=== PATIENT | male | born 1940 | race Caucasian/White ===

== ENCOUNTER → 2016-05-15 | Outpatient (CLI) | payer OTHER ==
[~2016-05-15] MED LIST: ASPEC81 PO; LISI-725 PO; METO25TA3 PO; UNABLE
[2016-05-15 14:00] LABS: ESTIMATED AVERAGE GLUCOSE 117 mg/dl; HA1C FLAG Normal (Normal)
[2016-05-15 14:01] LABS: BLOOD UREA NITROGEN 24 mg/dl (7-18); BUN/CREATININE RATIO 15.8 (10-20); CARBON DIOXIDE 26 mmol/L (21-32); CHLORIDE 104 mmol/L (98-107); CHOLESTEROL 212 mg/dl (0-200); GLUCOSE 96 mg/dl (70-99); POTASSIUM 4.1 mmol/L (3.5-5.1); SODIUM 141 mmol/L (136-145); TRIGLYCERIDES 503 mg/dl (0-150)
[2016-05-15 14:04] LABS: CHOLESTEROL/HDL RATIO 6.2; HDL CHOLESTEROL 34 mg/dl
== END | disposition home or self-care (01) ==
LOC: C.LABSPEC 12:20
PROVIDERS: ATTEND Internal Medicine
DX: Z00.00 Encounter for general adult medical examination without abnormal findings (principal); R73.9 Hyperglycemia, unspecified; E78.5 Hyperlipidemia, unspecified; I10 Essential (primary) hypertension

== ENCOUNTER → 2016-08-10 | Outpatient (CLI) | payer OTHER ==
[2016-08-10 13:14] LABS: CHOLESTEROL 127 mg/dl (0-200); CHOLESTEROL/HDL RATIO 4.4; HDL CHOLESTEROL 29 mg/dl; TRIGLYCERIDES 152 mg/dl (0-150); VERY LOW DENSITY LIPOPROT CALC 30 mg/dl
== END | disposition home or self-care (01) ==
LOC: C.LABSPEC 12:11
PROVIDERS: ATTEND Internal Medicine
DX: E78.5 Hyperlipidemia, unspecified (principal)

== ENCOUNTER → 2016-11-13 | Outpatient (CLI) | payer OTHER ==
[2016-11-13 15:44] LABS: ALT/SGPT 42 U/L (12-78); BLOOD UREA NITROGEN 18 mg/dl (7-18); BUN/CREATININE RATIO 13.9 (10-20); CALCIUM 8.8 mg/dl (8.5-10.1); CARBON DIOXIDE 27 mmol/L (21-32); CHLORIDE 105 mmol/L (98-107); GLUCOSE 90 mg/dl (70-99); POTASSIUM 4.4 mmol/L (3.5-5.1); SODIUM 137 mmol/L (136-145)
[2016-11-13 16:00] LABS: ALB/GLOB RATIO 1.1 (0.9-2); ALKALINE PHOSPHATASE 101 U/L (45-117); AST/SGOT 24 U/L (15-37); CHOLESTEROL 131 mg/dl (0-200); CHOLESTEROL/HDL RATIO 3.5; HDL CHOLESTEROL 37 mg/dl; TRIGLYCERIDES 200 mg/dl (0-150); VERY LOW DENSITY LIPOPROT CALC 40 mg/dl
[2016-11-14 06:25] LABS: ESTIMATED AVERAGE GLUCOSE 105 mg/dl; HA1C FLAG Normal (Normal)
== END | disposition home or self-care (01) ==
LOC: C.LABSPEC 15:02
PROVIDERS: ATTEND Internal Medicine
DX: I25.10 Atherosclerotic heart disease of native coronary artery without angina pectoris (principal); I48.91 Unspecified atrial fibrillation; E78.5 Hyperlipidemia, unspecified; R73.9 Hyperglycemia, unspecified

== ENCOUNTER → 2017-02-21 | Outpatient (CLI) | payer OTHER ==
[2017-02-21 15:59] LABS: INR 2.6 (0.9-1.1); PROTHROMBIN TIME (PATIENT) 28.6 SECONDS (9.0-12.0)
== END | disposition home or self-care (01) ==
LOC: C.LABSPEC 15:21
PROVIDERS: ATTEND Internal Medicine
DX: I48.0 Paroxysmal atrial fibrillation (principal); Z79.01 Long term (current) use of anticoagulants

== ENCOUNTER → 2017-05-07 | Outpatient (CLI) | payer OTHER ==
[2017-05-07 13:38] LABS: HEMOGLOBIN A1C 5.2 % (4.5-5.6)
[2017-05-07 14:08] LABS: BLOOD UREA NITROGEN 18 mg/dl (7-18); CALCIUM 8.6 mg/dl (8.5-10.1); CARBON DIOXIDE 25 mmol/L (21-32); CREATININE 1.09 mg/dl (0.60-1.40); GLUCOSE 106 mg/dl (70-99); POTASSIUM 3.9 mmol/L (3.5-5.1); SODIUM 138 mmol/L (136-145)
[2017-05-07 14:12] LABS: CHOLESTEROL 132 mg/dl (0-200); LDL CHOLESTEROL (DIRECT) 75 mg/dl
== END | disposition home or self-care (01) ==
LOC: C.LABSPEC 12:22
PROVIDERS: ATTEND Internal Medicine
DX: Z00.00 Encounter for general adult medical examination without abnormal findings (principal); I25.10 Atherosclerotic heart disease of native coronary artery without angina pectoris; E78.5 Hyperlipidemia, unspecified; R73.9 Hyperglycemia, unspecified

== ENCOUNTER 2017-06-26 15:58 | Emergency (ER) | payer OTHER ==
[~2017-06-26] VITALS: Ht 172.7 cm; Wt 104.2 kg
[2017-06-26 16:20] VITALS: TEMP 36.9; Ht 172.7 cm; Wt 104.2 kg
[2017-06-26 16:25] VITALS: O2SAT 94
[2017-06-26] MEDS ORDERED: SODIUM CHLORIDE 0.9% 1000ML 1,000 ML IV STA (16:35)
--- NOTE | 2017-06-26 16:39 | EMERGENCY ROOM VISIT NOTE ---
History Report prepared by Latisha: Jaki Canela Under the Supervision of: Dr. Rory Snider M.D. First contact with patient: 16:28 Chief Complaint: Headache Stated Complaint: DEHYDRATION, DIZZY, HEADACHES, DIARREHA Nursing Triage Summary: Patient ambulatory to triage with an upright and steady gait, states "I have had a cold for 3 weeks that is slowly getting better. I am having some difficulty taking deep breaths. I am a nose breather. A lot of times when I am breathing, I hear a whistling sound. I have been lightheaded with headaches and light diarrhea. I have a terrible dry mouth, which has been worse, from medications." History of Present Illness The patient is a 77 year old male who presents to the Emergency Room with complaints of a constant headache beginning earlier today. The patient presents with his son at the bedside. Per son, the patient called his daughter this afternoon and was complaining of a headache. He told her that he was going to lay down for a while. The patient's son called his PCP to make an appointment. PCP recommended that the patient come to the ED for IV fluids. The patient states that he has been experiencing cold symptoms for the past 3 weeks. He has not been coughing much but reports that he has felt generally weak and "off balance." He notes sinus congestion and diarrhea. The patient denies LOC, changes in vision, fevers, chest pain, shortness of breath, abdominal pain, pain or swelling in his legs, and any rash. He is on Xarelto for a history of a- fib. He does not use oxygen at home. Source of History: patient, family (son) Onset: earlier today Position: head Quality: ache Timing: constant Associated Symptoms: + diarrhea, + weakness, No LOC, No fevers, No cough, No chest pain, No SOB, No abdominal pain, No rash Review of Systems See HPI for pertinent positives & negatives. A total of 10 systems reviewed and were otherwise negative. Past Medical & Surgical Medical Problems: (1) A-fib Family History No pertinent history stated. Social History Smoking Status: Never Smoker Occupation Status: retired Current/Historical Medications Scheduled Aspirin (Aspirin Ec), 81 MG PO DAILY Atorvastatin (Lipitor), 80 MG PO DAILY Citalopram Hydrobromide (Celexa), 20 MG PO DAILY Lisinopril (Zestril), 20 MG PO QAM Metoprolol Tartrate (Lopressor) (Lopressor), 50 MG PO BID Omeprazole (Prilosec), 20 MG PO BID Rivaroxaban (Xarelto), 20 MG PO DAILY Scheduled PRN Acetaminophen Tab (Tylenol), 325 MG PO UD PRN for Pain or Fever Lorazepam (Ativan), 1 MG PO TID PRN for Anxiety Melatonin (Melatonin), 3 MG PO HS PRN for Sleep Allergies Coded Allergies: No Known Allergies (Verified , 06/26/17) Physical Exam Vital Signs Date Time Temp Pulse Resp B/P (MAP) Pulse Ox O2 Delivery O2 Flow Rate FiO2 06/26/17 18:48 78 18 179/88 96 06/26/17 16:57 72 06/26/17 16:25 94 Nasal Cannula 2.0 06/26/17 16:25 94 Nasal Cannula 2.0 06/26/17 16:23 93 Room Air 06/26/17 16:20 36.9 77 20 207/84 93 Room Air Physical Exam GENERAL: Patient is dry appearing and in no acute distress. EYES: No scleral icterus, unremarkable pupils. ENT: Mucous membranes cracked and dry, no nasal congestion. NECK: No masses appreciated, no meningismus, trachea is midline. RESPIRATORY: No dyspnea. Clear to auscultation and equal bilaterally. No wheeze , no rhonchi. CARDIOVASCULAR: Regular rate and rhythm. No murmurs, rubs, gallops appreciated. GASTROINTESTINAL: Abdomen soft, nontender, no peritonitis. Bowel sounds positive. No masses appreciated. BACK: No midline tenderness, no CVA tenderness EXTREMITIES: Normal motion all extremities, no cyanosis, no edema. NEUROLOGIC: Alert and oriented, no acute motor or sensory deficits, no focal weakness, cranial nerves grossly intact. SKIN: Poor turgor. No rash, no jaundice, no diaphoresis. Medical Decision & Procedures ER Provider Diagnostic Interpretation: Radiology results and stated below per my review and radiologist interpretation: CT HEAD WITHOUT CONTRAST (CT) CLINICAL HISTORY: Headache, dizziness, patient on anticoagulation. COMPARISON STUDY: May 18, 2007 TECHNIQUE: Axial CT of the brain is performed from the vertex to the skull base. IV contrast was not administered for this examination. A dose lowering technique was utilized adhering to the principles of ALARA. CT DOSE: 614.27 mGy.cm FINDINGS: No intra or extra-axial mass lesions are visualized. There is no CT evidence of acute cortical infarction. There is no evidence of midline shift. There is no acute hemorrhage. No calvarial fractures are visualized. There is no evidence of pathologic ventricular dilatation. There is no evidence of acute sinusitis IMPRESSION: No acute intracranial findings Electronically signed by: Jered Hernández M.D. 06/26/2017 5:18 PM Dictated Date/Time: 06/26/2017 5:17 PM CHEST ONE VIEW PORTABLE CLINICAL HISTORY: Persistent Cough COMPARISON STUDY: 05/18/2007 FINDINGS: The heart is enlarged. There are postsurgical changes of a midline sternotomy. There is diffuse elevation of the interstitium. The findings likely represent congestive failure/fluid overload. A bilateral residual infectious/inflammatory process could appear similar. Mediastinal fullness, is likely secondary to the AP technique and mediastinal fat deposition, given the patient's body habitus. IMPRESSION: Congestive heart failure pattern. Clinical and radiographic follow-up is recommended. Electronically signed by: Jered Hernández M.D. 06/26/2017 4:51 PM Dictated Date/Time: 06/26/2017 4:48 PM Laboratory Results 06/26/17 17:00 Red Blood Count 3.74, Mean Corpuscular Volume 97.9, Mean Corpuscular Hemoglobin 32.4, Mean Corpuscular Hemoglobin Concent 33.1, Mean Platelet Volume 9.5, Neutrophils (%) (Auto) 67.2, Lymphocytes (%) (Auto) 17.7, Monocytes (%) (Auto) 12.0, Eosinophils (%) (Auto) 2.1, Basophils (%) (Auto) 0.7, Neutrophils # (Auto ) 4.90, Lymphocytes # (Auto) 1.29, Monocytes # (Auto) 0.87, Eosinophils # (Auto ) 0.15, Basophils # (Auto) 0.05 06/26/17 17:00 Test 06/26/17 17:00 White Blood Count 7.28 K/uL (4.8-10.8) Red Blood Count 3.74 M/uL (4.7-6.1) Hemoglobin 12.1 g/dL (14.0-18.0) Hematocrit 36.6 % (42-52) Mean Corpuscular Volume 97.9 fL (80-100) Mean Corpuscular Hemoglobin 32.4 pg (25-34) Mean Corpuscular Hemoglobin Concent 33.1 g/dl (32-36) Platelet Count 245 K/uL (130-400) Mean Platelet Volume 9.5 fL (7.4-10.4) Neutrophils (%) (Auto) 67.2 % Lymphocytes (%) (Auto) 17.7 % Monocytes (%) (Auto) 12.0 % Eosinophils (%) (Auto) 2.1 % Basophils (%) (Auto) 0.7 % Neutrophils # (Auto) 4.90 K/uL (1.4-6.5) Lymphocytes # (Auto) 1.29 K/uL (1.2-3.4) Monocytes # (Auto) 0.87 K/uL (0.11-0.59) Eosinophils # (Auto) 0.15 K/uL (0-0.5) Basophils # (Auto) 0.05 K/uL (0-0.2) RDW Standard Deviation 51.4 fL (36.4-46.3) RDW Coefficient of Variation 14.7 % (11.5-14.5) Immature Granulocyte % (Auto) 0.3 % Immature Granulocyte # (Auto) 0.02 K/uL (0.00-0.02) Anion Gap 6.0 mmol/L (3-11) Est Creatinine Clear Calc Drug Dose 68.7 ml/min Estimated GFR () 77.7 Estimated GFR (Non- 67.1 BUN/Creatinine Ratio 17.0 (10-20) Calcium Level 8.3 mg/dl (8.5-10.1) Troponin I < 0.015 ng/ml (0-0.045) Laboratory results as reviewed by me. Medications Administered Medications (Trade) Dose Ordered Sig/Giacomo Route Start Time Stop Time Status Last Admin Dose Admin Sodium Chloride 1,000 ml @ 999 mls/hr Q1H1M STAT IV 06/26/17 16:35 06/26/17 17:35 DC 06/26/17 17:25 999 MLS/HR ECG Per My Interpretation Indication: weakness Rate (beats per minute): 71 Rhythm: normal sinus Findings: no acute ischemic change, no ectopy, other (QTC 473) ED Course 1628: The patient was evaluated in room C10. A complete history and physical exam was performed. 1635: NSS 1000 ml @ 999 mls/hr IV 1759: I reassessed the patient at this time. He is feeling better and resting comfortably. I discussed the results and treatment plan with the patient and his son. Son agrees that the patient's color has improved. The patient wants to go home. I answered all pertaining questions that he had. He expressed understanding and verbalized agreement. The patient will be discharged home. Medical Decision Differential: Sepsis, Infectious (UTI/Pneumonia/Meningitis/etc), Metabolic/ Electrolyte Abnormality, Cardiac, Dehydration, Anemia, Hepatic, Endocrine, Toxicologic, Neurologic, amongst other pathologies entertained. 77 yr old male arrives for evaluation of minor headache while on xaralto as well as stuffy nose and some diarrhea. Essentially states all symptoms are mild. He is in no distress and looks well. CT head as he is on blood thinner which fortunately is negative. Looks much happier after some fluids. He is not in CHF by exam and was clearly more on dehydrated side. Sinus congestion I suggested Flonase which son notes they will slat pickler at pharmacy. Patient with unremarkable labs, no evidence acs, electrolytes good, not septic. Wanting to go home as feeling much better. Medication Reconcilliation Current Medication List: was personally reviewed by me Blood Pressure Screening Patient's blood pressure: Elevated blood pressure Blood pressure disposition: Referred to PCP Impression Primary Impression: Dehydration Additional Impressions: Diarrhea Headache Fatigue Nasal sinus congestion Scribe Attestation The scribe's documentation has been prepared under my direction and personally reviewed by me in its entirety. I confirm that the note above accurately reflects all work, treatment, procedures, and medical decision making performed by me. Departure Information Dispostion Home / Self-Care Referrals Phil Manzo M.D. (PCP) Forms HOME CARE DOCUMENTATION FORM, IMPORTANT VISIT INFORMATION, WORK / SCHOOL INSTRUCTIONS Patient Instructions My [facility] [employer] Additional Instructions Keep well hydrated. Your blood pressure was elevated during this visit. This is quite common in many people who are being evaluated in the Emergency Department for many reasons. However, it is important that you have your Primary Care Provider recheck your blood pressure and discuss whether treatment will be needed. intermediate manager elevated blood pressure can lead to strokes, heart attacks, kidney failure amongst other medical issues. If you develop severe headaches, chest pain, weakness in arms or legs, or other concerning symptoms call 911. You have been examined and treated today on an emergency basis only. This is not a substitute for, or an effort to provide, complete comprehensive medical care. It is impossible to recognize and treat all injuries or illnesses in a single emergency department visit. It is therefore important that you follow up closely with your Primary Physician or [facility]. Call as soon as possible for an appointment so you can review all labs, imaging and other testing that you had. Return to Emergency Department, call 911 or seek immediate medical attention if you feel your symptoms are worsening. Problem Qualifiers
--- NOTE | 2017-06-26 16:52 | DIAGNOSTIC IMAGING REPORT ---
CHEST ONE VIEW PORTABLE CLINICAL HISTORY: Persistent Cough COMPARISON STUDY: 05/18/2007 FINDINGS: The heart is enlarged. There are postsurgical changes of a midline sternotomy. There is diffuse elevation of the interstitium. The findings likely represent congestive failure/fluid overload. A bilateral residual infectious/inflammatory process could appear similar. Mediastinal fullness, is likely secondary to the AP technique and mediastinal fat deposition, given the patient's body habitus. IMPRESSION: Congestive heart failure pattern. Clinical and radiographic follow-up is recommended. Electronically signed by: Jered Hernández M.D. 06/26/2017 4:51 PM Dictated Date/Time: 06/26/2017 4:48 PM
--- NOTE | 2017-06-26 17:20 | DIAGNOSTIC IMAGING REPORT ---
CT HEAD WITHOUT CONTRAST (CT) CLINICAL HISTORY: Headache, dizziness, patient on anticoagulation. COMPARISON STUDY: May 18, 2007 TECHNIQUE: Axial CT of the brain is performed from the vertex to the skull base. IV contrast was not administered for this examination. A dose lowering technique was utilized adhering to the principles of ALARA. CT DOSE: 614.27 mGy.cm FINDINGS: No intra or extra-axial mass lesions are visualized. There is no CT evidence of acute cortical infarction. There is no evidence of midline shift. There is no acute hemorrhage. No calvarial fractures are visualized. There is no evidence of pathologic ventricular dilatation. There is no evidence of acute sinusitis IMPRESSION: No acute intracranial findings Electronically signed by: Jered Hernández M.D. 06/26/2017 5:18 PM Dictated Date/Time: 06/26/2017 5:17 PM
[2017-06-26 17:22] LABS: BASO % 0.7 %; BASO ABS # 0.05 K/uL (0-0.2); EOS % 2.1 %; EOS ABS # 0.15 K/uL (0-0.5); HEMATOCRIT 36.6 % (42-52); HEMOGLOBIN 12.1 g/dL (14.0-18.0); IG# 0.02 K/uL (0.00-0.02); LYMPH % 17.7 %; LYMPH ABS # 1.29 K/uL (1.2-3.4); MEAN CELL VOLUME 97.9 fL (80-100); MEAN CORPUSCULAR HEMOGLOBIN 32.4 pg (25-34); MEAN CORPUSCULAR HGB CONC 33.1 g/dl (32-36); MEAN PLATELET VOLUME 9.5 fL (7.4-10.4); MONO ABS # 0.87 K/uL (0.11-0.59); NEUT % 67.2 %; PLATELET COUNT 245 K/uL (130-400); RED CELL DISTRIBUTION WIDTH CV 14.7 % (11.5-14.5); RED CELL DISTRIBUTION WIDTH SD 51.4 fL (36.4-46.3); WHITE BLOOD COUNT 7.28 K/uL (4.8-10.8)
[2017-06-26] MEDS ORDERED: ATOR-26 PO (17:32)
[2017-06-26] MEDS ORDERED: ASPI81TA28 PO (17:32)
[2017-06-26] MEDS ORDERED: RIVA1TAB4 PO (17:32)
[2017-06-26] MEDS ORDERED: MELA3TAB PO (17:32)
[2017-06-26] MEDS ORDERED: METO50TA16 PO (17:32)
[2017-06-26] MEDS ORDERED: PRLSR20 PO (17:32)
[2017-06-26] MEDS ORDERED: ATV/1 PO (17:32)
[2017-06-26] MEDS ORDERED: CITA40TA12 PO (17:32)
[2017-06-26] MEDS ORDERED: ACET-1693 PO (17:32)
[2017-06-26 17:41] LABS: BLOOD UREA NITROGEN 18 mg/dl (7-18); CALCIUM 8.3 mg/dl (8.5-10.1); CARBON DIOXIDE 26 mmol/L (21-32); CREATININE 1.07 mg/dl (0.60-1.40); GLUCOSE 101 mg/dl (70-99); POTASSIUM 4.3 mmol/L (3.5-5.1); SODIUM 141 mmol/L (136-145)
[2017-06-26 18:48] VITALS: BP 179/88; PULSE 78; O2SAT 96
== END 2017-06-26 18:50 | disposition home or self-care (01) ==
LOC: C.EDB 16:00 → C.EDC 18:50
DX: E86.0 Dehydration (principal); R51 Headache; R19.7 Diarrhea, unspecified; R53.83 Other fatigue; R09.81 Nasal congestion; R03.0 Elevated blood-pressure reading, without diagnosis of hypertension; I48.91 Unspecified atrial fibrillation; Z79.82 Long term (current) use of aspirin; Z79.01 Long term (current) use of anticoagulants

== ENCOUNTER 2018-11-10 07:49 | Inpatient (IN) ==
--- OUTSIDE RECORDS SUMMARY | 2018-11-10 07:53 | External Medical Summary | Continuity of Care Document ---
:1940 Author Name Josefina Escoto, Provider Address Unavailable Unavailable , Care Team Providers Name Role Phone Marcie Escoto, [email or web address] [email or web address] 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) Allergies and Adverse Reactions No Known Drug Allergies (Allergy) Medications Omeprazole 20 MG Oral Tablet Delayed Rel ease; take 1 tablet by mouth twice a day Refills: 0 Tolterodine Tartrate 2 MG Oral Tablet; Take 1 tablet t wice daily Tigist Crystal Start: 17-Apr-2018 Quantity: 60 Refills: 11 Triamterene-HCTZ 37.5-25 MG Oral Tablet; take 1 tablet by mouth once daily DO Nicholas Bird Start: 16-Jan-2018 Quantity: 30 Refills: 3 Dutasteride 0.5 MG Oral Capsule; TAKE ONE CAPSULE BY M CHEIKH ONE TIME DAILY NICOLASA Evans Start: 24-Sep-2018 Quantity: 90 Refills: 2 Metoprolol Tartrate 75 MG Oral Tablet; take 1 tablet by mout h twice a day Refills: 0 Lisinopril 20 MG Oral Tablet; take 1 tablet by mouth once da amelie 15 Tablet Bottle Refills: 0 Citalopram Hydrobromide 20 MG Oral Tablet; take 1 tablet by mouth once daily Refills: 0 Atorvastatin Calcium 80 MG Oral Tablet; take 1 tablet by hope th once daily Refills: 0 Acetaminophen 325 MG Oral Tablet; TAKE 1 TABLET BY MOUTH EVERY 6 HOURS NEEDED Refills: 0 Tamsulosin HCl - 0.4 MG Oral Capsule; TA KE 1 CAPSULE Daily 1/2 hour after supper Tigsit Jack Start: 15-Jan-2018 Quantity: 90 Refills: 3 Procedures Procedures not documented Immunizations Immunizations not documented Family History Brother Family history of malignant neoplasm of esophagus (V16 .0) (Z80.0) Status: Active Family history of malignant neoplasm of brain (V16.8) (Z80.8 ) Status: Active Social History - Smoking Status Never smoker Plan of Treatment Planned Observations Planned Goals not documented Results No Known Results Results not documented Encounters Appointment; Jim Crystal M.D. 19-Aug-2018 9:20 Encounter Diagnosis: Problem not documented Appointment; Jim Crystal M.D. 20-May-2018 11:35 Encounter Diagnosis: Problem not documented Appointment; Urology, Nursing Station 15-May-2018 11:20 Encounter Diagnosis: Problem not documented Appointment; Jim Crystal M.D. 09-May-2018 8:00 Encounter Diagnosis: Problem not documented Appointment; Nicholas Bird DO 18-Apr-2018 10:30 Encounter Diagnosis: Problem not documented Appointment; Jim Crystal M.D. 17-Apr-2018 11:10 Encounter Diagnosis: Problem not documented Appointment; Urology, Room 8 17-Apr-2018 11:00 Encounter Diagnosis: Problem not documented Appointment; Cosme Jack M.D. 14-Mar-2018 9:00 Encounter Diagnosis: Problem not documented Appointment; Cosme Jack M.D. 27-Feb-2018 9:10 Encounter Diagnosis: Problem not documented Appointment; Urology, Room 8 27-Feb-2018 9:00 Encounter Diagnosis: Problem not documented Appointment; Nicholas Bird DO 16-Jan-2018 11:15 Encounter Diagnosis: Problem not documented Appointment; Urology, Nursing Station 15-Jan-2018 9:35 Encounter Diagnosis: Problem not documented Appointment; Cosme Jack M.D. 15-Jan-2018 9:10 Encounter Diagnosis: Problem not documented
[2018-11-10] MEDS ORDERED: ALBUT/IPRATROP 3MG/0.5MG NEB 3 ML VIAL INH STA (08:12)
[2018-11-10] MEDS ORDERED: SODIUM CHLORIDE 0.9% 500 ML IV SCH (08:15)
--- NOTE | 2018-11-10 08:18 | Emergency Department Note ---
History of Present Illness General Chief complaint: Shortness of Breath/Dyspnea Stated complaint: SHORTNESS OF BREATH, MAY HAVE TAKEN TO MUCH ATIVAN Time Seen by Provider: 11/10/18 08:00 Source: patient Mode of arrival: wheelchair History of Present Illness Maximum Pain Intensity: 0 This is a 78-year-old male who presents to the ED with a chief complaint of shortness of breath, slight cough and dry mouth for about a week. He also has some weakness. He states that he has not slept well for the past 4 nights because of insomnia. The patient states that his shortness of breath started last night. The patient has a history of paroxysmal atrial fibrillation. He states that he had been on Xarelto in the past but due to bleeding issues, this was discontinued. The patient admits to taking some Ativan this morning. The son feels that the patient may have taken too much Ativan. The patient denies any headaches or chest pains. No abdominal pains. No nausea vomiting. No fevers. Denies productive cough. Home Medications Home Medications Medication Instructions Recorded Confirmed Type Prilosec OTC 20 mg PO QAM 12/30/17 11/10/18 History atorvastatin 80 mg PO HS 12/30/17 11/10/18 History citalopram [Celexa] 20 mg PO HS 12/30/17 11/10/18 History melatonin 3 mg PO HS PRN 12/30/17 11/10/18 History metoprolol tartrate 75 mg PO BID #0 tab 01/09/18 11/10/18 Rx dutasteride 0.5 mg PO HS 02/28/18 11/10/18 History aspirin [Aspir-81] 81 mg PO QAM 04/23/18 11/10/18 History diphenhydramine HCl [Benadryl] 25 mg PO Q4 PRN 04/23/18 11/10/18 History tolterodine 2 mg PO BID 04/23/18 11/10/18 History triamterene-hydrochlorothiazid 1 cap PO QAM 04/23/18 11/10/18 History amoxicillin-pot clavulanate 1 tab PO TID 11/10/18 11/10/18 History lorazepam 0.5 mg PO UD 11/10/18 11/10/18 History Allergies Allergy/AdvReac Type Severity Reaction Status Date / Time No Known Allergies Allergy Unknown Verified 11/10/18 08:23 Past Med/Surg History Medical History Acute blood loss anemia 2/2 hematuria, had 2 units PRBCs during admission 02/28-03/03 Gross hematuria CAD (coronary artery disease), elem coronary artery Paroxysmal atrial fibrillation (Chronic) Holding Xarelto due to hematuria currently. Did have cardioversion 2-3yrs ago. Elevated troponin (Resolved) Per discharge summary 01/09/18: "Likely because of EDUARDA , no ischemic concerns" Essential hypertension (Chronic) Depression (Chronic) Anxiety (Chronic) Obstructive uropathy (Acute) Caused EDUARDA, admitted [facility] 12/2017, discharged with Bernstein and then self- cathing. Caused injury self-cathing and was readmitted for blood loss. Acute kidney injury (Acute) Admitted [facility] 01/05-01/09 for obstruction uropathy/EDUARDA. Readmitted 02/28-03/03 for hematuria/acute blood loss anemia. GERD (gastroesophageal reflux disease) (Chronic) History of anesthesia reaction CONVULSIONS POST OP QUICK COMING AWAKE FROM CABG SURG 20 YRS AGO. 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 20 YRS AGO[place] [place] H/O colonoscopy History of cardiac cath NO STENTS-20 YRS AGO History of cardioversion 2-3 YRS AGO [facility] Family History Brother Family history of esophageal cancer Other No pertinent family history Social History Preferred Language: Kazakh Communication Ability: Effective Visual Impairment: No Limitations Manager Infusion Required: No Beliefs That Will Affect Care: None Current Living Situation: Family Current Living Situation Comment: lives with son Feels Safe at Home: Yes Smoking Status: Never smoker Second Hand Exposure: No ; Hx Alcohol Use: No Hx Substance Use: No Review of Systems A total of 10 systems reviewed and were otherwise negative Physical Exam Vital Signs Vital Signs - 24 hr 11/10/18 07:54 11/10/18 08:19 11/10/18 08:21 Temperature 36.4 C L Temperature Source Oral Sepsis Recent Fever Within 48 Hours No Sepsis New/Unexplained Change in Mental Status No Sepsis Action Taken by Nursing No Action Required Pulse Rate 72 73 Pulse Rate [Apical] Respiratory Rate 20 22 Respiratory Effort / Characteristics Spontaneous Respiratory Pattern Regular Blood Pressure 116/69 Blood Pressure [Right Arm] Blood Pressure Mean 84 Blood Pressure Mean [Right Arm] Pulse Oximetry 99 95 Oxygen Delivery Method Room Air Room Air Room Air 11/10/18 08:36 11/10/18 09:14 11/10/18 09:34 Temperature Temperature Source Sepsis Recent Fever Within 48 Hours Sepsis New/Unexplained Change in Mental Status Sepsis Action Taken by Nursing Pulse Rate Pulse Rate [Apical] 71 72 81 Respiratory Rate 26 H 23 23 Respiratory Effort / Characteristics Spontaneous Respiratory Pattern Blood Pressure Blood Pressure [Right Arm] 120/56 L 99/50 L Blood Pressure Mean Blood Pressure Mean [Right Arm] 77 66 Pulse Oximetry 96 95 97 Oxygen Delivery Method Room Air Room Air Room Air 11/10/18 10:45 Temperature Temperature Source Sepsis Recent Fever Within 48 Hours Sepsis New/Unexplained Change in Mental Status Sepsis Action Taken by Nursing Pulse Rate Pulse Rate [Apical] 89 Respiratory Rate 26 H Respiratory Effort / Characteristics Respiratory Pattern Blood Pressure Blood Pressure [Right Arm] 97/64 L Blood Pressure Mean Blood Pressure Mean [Right Arm] 75 Pulse Oximetry 93 Oxygen Delivery Method Room Air CONSTITUTIONAL/VITAL SIGNS: Reviewed / noted above. GENERAL: Non-toxic in appearance. The patient does have some mild slurring of his speech. He is a little difficult to understand due to this. This appears to be chronic. INTEGUMENTARY: Warm, dry, and [place]. HEAD: Normocephalic. EYES: without scleral icterus or trauma. ENT/OROPHARYNX: clear and moist. LYMPHADENOPATHY/NECK: Is supple without lymphadenopathy or meningismus. RESPIRATORY: Lungs clear and equal but diminished. Mild increased work of breathing. CARDIOVASCULAR: Regular rate and rhythm. GI/ABDOMEN: Soft and nontender. No organomegaly or pulsatile mass. No rebound or guarding. Normal bowel sounds. EXTREMITIES: Warm and well perfused. BACK: No CVA tenderness. NEUROLOGICAL: Intact without focal deficits. PSYCHIATRIC: normal affect. MUSCULOSKELETAL: Normally developed with good muscle tone. TRIAGE NURSING DOCUMENTATION REVIEWED. Course Administered Medications Discontinued Medications Albuterol (Duoneb) 3 ml INH NOW STA Stop: 11/10/18 08:13 Last Admin: 11/10/18 08:34 Dose: 3 ml Documented by: [id number] Sodium Chloride (Nss) 500 mls @ 999 mls/hr IV .Q31M TROY Stop: 11/10/18 08:45 Last Infusion: 11/10/18 09:11 Dose: 0 mls/hr Documented by: [id number] Admin: 11/10/18 08:36 Dose: 999 mls/hr Documented by: [id number] Medical Decision Making Differential Diagnosis The differential was considered includes acute myocardial infarction, acute coronary syndrome, myocarditis, pericarditis, pericardial effusions /tamponad, esophageal perforation, pulmonary embolism, pneumonia, pneumothorax, cardiomyopathy, congestive heart, anemia , COPD/asthma exacerbation. Laboratory Data Result diagrams: 11/10/18 08:13 11/10/18 08:13 Lab Results 11/10/18 11/10/18 11/10/18 Range/Units 08:13 08:13 08:13 WBC 7.17 (4.8-10.8) K/uL RBC 3.14 L (4.7-6.1) M/uL Hgb 8.4 L (14.0-18.0) g/dL Hct 26.6 L (42-52) % MCV 84.7 (80-100) fL MCH 26.8 (25-34) pg MCHC 31.6 L (32-36) g/dL RDW Std Deviation 59.1 H (36.4-46.3) fL RDW Coeff of Marilynn 19.0 H (11.5-14.5) % Plt Count 241 (130-400) K/uL MPV 9.1 (7.4-10.4) fL Immature Gran % (Auto) 0.3 % Neut % (Auto) 67.8 % Lymph % (Auto) 16.9 % Carter % (Auto) 11.3 % Eos % (Auto) 3.3 % Baso % (Auto) 0.4 % Immature Gran # (Auto) 0.02 (0.00-0.02) K/uL Neut # (Auto) 4.86 (1.4-6.5) K/uL Lymph # (Auto) 1.21 (1.2-3.4) K/uL Carter # (Auto) 0.81 H (0.11-0.59) K/uL Eos # (Auto) 0.24 (0-0.5) K/uL Baso # (Auto) 0.03 (0-0.2) K/uL PT 11.4 (9.0-12.0) Seconds INR 1.1 (0.9-1.1) APTT 26.2 (21.0-31.0) Seconds PTT Ratio 1.0 ABG pH (7.35-7.45) ABG pCO2 (35-46) mmHg ABG pO2 (80-95) mm/Hg ABG HCO3 (19-24) mmol/L ABG O2 Saturation (90-95) % ABG Base Excess (-9-1.8) mEq/L Billy Test (Pos) Barometric Pressure mm/Hg Oxygen Given Sodium 141 (136-145) mmol/L Potassium 4.6 (3.5-5.1) mmol/L Chloride 111 H (98-107) mmol/L Carbon Dioxide 24 (21-32) mmol/L Anion Gap 6.0 (3-11) BUN 57 H (7-18) mg/dl Creatinine 2.76 H (0.6-1.4) mg/dl Est Cr Clr Drug Dosing Not Reportable Est GFR ( Amer) 24.5 Est GFR (Non-Af Amer) 21.2 BUN/Creatinine Ratio 20.8 H (10-20) Glucose 109 H (70-99) mg/dl Calcium 7.8 L (8.5-10.1) mg/dl Total Bilirubin 0.2 (0.2-1) mg/dl AST 24 (15-37) U/L ALT 22 (12-78) U/L Alkaline Phosphatase 97 (45-117) U/L Troponin I < 0.015 (0-0.045) ng/ml Total Protein 6.5 (6.4-8.2) gm/dl Albumin 3.2 L (3.4-5.0) gm/dl Globulin 3.3 (2.5-4.0) gm/dl Albumin/Globulin Ratio 1.0 (0.9-2) Blood Type Antibody Screen 11/10/18 11/10/18 Range/Units 08:33 10:02 WBC (4.8-10.8) K/uL RBC (4.7-6.1) M/uL Hgb (14.0-18.0) g/dL Hct (42-52) % MCV (80-100) fL MCH (25-34) pg MCHC (32-36) g/dL RDW Std Deviation (36.4-46.3) fL RDW Coeff of Marilynn (11.5-14.5) % Plt Count (130-400) K/uL MPV (7.4-10.4) fL Immature Gran % (Auto) % Neut % (Auto) % Lymph % (Auto) % Carter % (Auto) % Eos % (Auto) % Baso % (Auto) % Immature Gran # (Auto) (0.00-0.02) K/uL Neut # (Auto) (1.4-6.5) K/uL Lymph # (Auto) (1.2-3.4) K/uL Carter # (Auto) (0.11-0.59) K/uL Eos # (Auto) (0-0.5) K/uL Baso # (Auto) (0-0.2) K/uL PT (9.0-12.0) Seconds INR (0.9-1.1) APTT (21.0-31.0) Seconds PTT Ratio ABG pH 7.35 (7.35-7.45) ABG pCO2 42 (35-46) mmHg ABG pO2 52 L (80-95) mm/Hg ABG HCO3 23 (19-24) mmol/L ABG O2 Saturation 82.9 L (90-95) % ABG Base Excess -2.6 (-9-1.8) mEq/L Billy Test Pos (Pos) Barometric Pressure 734.4 mm/Hg Oxygen Given ROOM AIR Sodium (136-145) mmol/L Potassium (3.5-5.1) mmol/L Chloride (98-107) mmol/L Carbon Dioxide (21-32) mmol/L Anion Gap (3-11) BUN (7-18) mg/dl Creatinine (0.6-1.4) mg/dl Est Cr Clr Drug Dosing Est GFR ( Amer) Est GFR (Non-Af Amer) BUN/Creatinine Ratio (10-20) Glucose (70-99) mg/dl Calcium (8.5-10.1) mg/dl Total Bilirubin (0.2-1) mg/dl AST (15-37) U/L ALT (12-78) U/L Alkaline Phosphatase (45-117) U/L Troponin I (0-0.045) ng/ml Total Protein (6.4-8.2) gm/dl Albumin (3.4-5.0) gm/dl Globulin (2.5-4.0) gm/dl Albumin/Globulin Ratio (0.9-2) Blood Type O Positive Antibody Screen NEGATIVE ECG Data Attestation: I personally reviewed and interpreted this ECG as follows: Indication: SOB/dyspnea Rate (beats per minute): 68 Rhythm: atrial fibrillation Findings: no ST elevation and no ectopy Blood Pressure Blood Pressure Findings: Normal blood pressure MDM Narrative This is a 78-year-old male who presents with some shortness of breath as well as a complaint of his mouth feeling dry. He states that he feels that he has [place]. The patient also may have taken too much Ativan, per the son. His physical exam reveals some mild increased work of breathing but his vital signs are normal. He is afebrile. The patient reports that he had been on Xarelto in the past for A. fib but due to bleeding issues this has been discontinued. His initial twelve-lead EKG reveals A. fib at a rate of 68 without acute injury or ectopy. The patient's ABG reveals a normal acid-base status and normal carbon dioxide level. The oxygen level is low. This is not consistent with the patient's pulse ox. This could be a venous sample. The hemoglobin today is 8.4. His last hemoglobin in April was 11. Guaiac testing of the stool was guaiac negative. The patient's BUN is 57 and the creatinine is 2.76. This is about baseline for the patient. Troponin was negative. A chest x-ray did not show acute process. The patient appears to have worsening kidney function with significant anemia. This may be causing his weakness as well as confusion (per family) and dyspnea. He will be seen by the hospitalist service for further inpatient evaluation and care. He was treated here with some IV fluids and DuoNeb treatment. Impression & Plan Acute dyspnea, Anemia, CRI (chronic renal insufficiency) Discharge Plan Visit Data Chief Complaint: Shortness of Breath/Dyspnea Stated Complaint: SHORTNESS OF BREATH, MAY HAVE TAKEN TO MUCH ATIVAN ED Provider: Nicholas Israel Discharge Problem: Acute dyspnea, Anemia, CRI (chronic renal insufficiency) Patient Disposition: Being Evaluated by Hospitalist Condition: Fair Forms Stand Alone Forms: My [facility] Prescriptions Prescriptions: No Action atorvastatin 80 mg Tablet 80 mg PO HS RF: 0 melatonin 3 mg Tablet 3 mg PO HS PRN (Reason: Sleep) RF: 0 citalopram [Celexa] 20 mg Tablet 20 mg PO HS RF: 0 Prilosec OTC 20 mg Tablet,Delayed Release (Dr/Ec) 20 mg PO QAM RF: 0 metoprolol tartrate 50 mg Tablet 75 mg PO BID Qty: 0 RF: 0 dutasteride 0.5 mg capsule 0.5 mg PO HS RF: 0 triamterene-hydrochlorothiazid 37.5-25 mg Capsule 1 cap PO QAM RF: 0 tolterodine 2 mg Tablet 2 mg PO BID RF: 0 aspirin [Aspir-81] 81 mg Tablet,Delayed Release (Dr/Ec) 81 mg PO QAM RF: 0 diphenhydramine HCl [Benadryl] 25 mg Capsule 25 mg PO Q4 PRN (Reason: Allergic Symptoms) RF: 0 amoxicillin-pot clavulanate 500-125 mg tablet 1 tab PO TID RF: 0 lorazepam 0.5 mg tablet 0.5 mg PO UD RF: 0 Referrals Referrals: Phil Hicks MD [Primary Care Provider] -
[2018-11-10 08:26] LABS: Basophils # (auto) 0.03 K/uL (0-0.2); Basophils % (auto) 0.4 %; Eosinophils # (auto) 0.24 K/uL (0-0.5); Eosinophils % (auto) 3.3 %; Hematocrit (blood only) 26.6 % (42-52); Hemoglobin 8.4 g/dL (14.0-18.0); Immature Granulocytes # (auto) 0.02 K/uL (0.00-0.02); Immature Granulocytes % (auto) 0.3 %; Lymphocytes # (auto) 1.21 K/uL (1.2-3.4); Lymphocytes % (auto) 16.9 %; Mean Corpuscular Hemoglobin 26.8 pg (25-34); Mean Corpuscular Hgb Conc 31.6 g/dL (32-36); Mean Corpuscular Volume 84.7 fL (80-100); Mean Platelet Volume 9.1 fL (7.4-10.4); Monocytes # (auto) 0.81 K/uL (0.11-0.59); Monocytes % (auto) 11.3 %; Neutrophils # (auto) 4.86 K/uL (1.4-6.5); Neutrophils % (auto) 67.8 %; Platelet Count 241 K/uL (130-400); RDW Standard Deviation 59.1 fL (36.4-46.3); Red Blood Count 3.14 M/uL (4.7-6.1); White Blood Count 7.17 K/uL (4.8-10.8)
--- NOTE | 2018-11-10 08:30 | XRay Report ---
XR chest 1V portable CLINICAL HISTORY: 78 years-old Male presenting with Dyspnea. TECHNIQUE: Portable upright AP view of the chest was obtained. COMPARISON: 04/30/2018. FINDINGS: Median sternotomy wires with breakage of one of the [id number] wires. Mediastinal surgical clips noted. Cardiac silhouette moderately enlarged. Pulmonary vascular engorgement. Elevation of the righ t hemidiaphragm. Mildly low lung volumes with hypoventilatory changes. No focal opacity. No large eff usion or pneumothorax. Osseous structures normal. Upper abdomen normal. IMPRESSION: 1. Cardiomegaly with volume overload. No advanced congestive change or pulmonary edema. 2. Mildly low lung volumes with hypoventilatory changes. Electronically signed by: Keith Carter M.D. 11/10/2018 8:27 AM
[2018-11-10 08:40] LABS: INR 1.1 (0.9-1.1); Partial Thromboplastin Time 26.2 Seconds (21.0-31.0); Prothrombin Time 11.4 Seconds (9.0-12.0)
[2018-11-10 08:42] LABS: Alanine Aminotransferase 22 U/L (12-78); Albumin Level 3.2 gm/dl (3.4-5.0); Aspartate Aminotransferase 24 U/L (15-37); BUN Creatinine Ratio 20.8 (10-20); Blood Urea Nitrogen 57 mg/dl (7-18); Calcium 7.8 mg/dl (8.5-10.1); Carbon Dioxide 24 mmol/L (21-32); Chloride 111 mmol/L (98-107); Est GFR (African American) 24.5; Est GFR (Non-African American) 21.2; Glucose 109 mg/dl (70-99); Potassium 4.6 mmol/L (3.5-5.1); Sodium 141 mmol/L (136-145)
[2018-11-10 08:45] LABS: Base Excess ABG -2.6 mEq/L (-9-1.8); HCO3 ABG 23 mmol/L (19-24); Oxygen Saturation ABG 82.9 % (90-95); PCO2 ABG 42 mmHg (35-46); PO2 ABG 52 mm/Hg (80-95); pH ABG 7.35 (7.35-7.45)
[2018-11-10 08:46] LABS: Alkaline Phosphatase 97 U/L (45-117); Bilirubin,Total 0.2 mg/dl (0.2-1); Globulin 3.3 gm/dl (2.5-4.0); Total Protein 6.5 gm/dl (6.4-8.2); Troponin I < 0.015 ng/ml (0-0.045)
[2018-11-10 08:47] LABS: Allen Test Pos (Pos)
[2018-11-10 10:55] LABS: Appearance Urine Clear (Clear); Bacteria Urine Automated Negative (Negative); Bilirubin Urine Negative (Negative); Blood Urine Negative (Negative); Color Urine Yellow; Epithelial Cell Urine Auto 0-5 /lpf (0-5); Glucose Urine UA Negative (Negative); Ketones Urine Negative (Negative); Leukocyte Esterase Urine Negative (Negative); Nitrite Urine Negative (Negative); Protein Urine 1+ (Negative); Specific Gravity Urine 1.024 (1.000-1.030); Urobilinogen Urine Negative (Negative); WBC Urine Automated >30 /hpf (0-5)
[2018-11-10 11:16] LABS: Mucus Urine Present (None Prsent); Sperm Urine Present (None Prsent)
--- NOTE | 2018-11-10 11:44 | History & Physical Report ---
Date of Service November 10, 2018 Assessment & Plan (1) Acute dyspnea: Admit telemetry Dyspnea likely secondary to fluid overload as well as anemia Last echo in 2010 demonstrating normal EF, no history that I can see of CHF - will order TTE, BNP CXR showing cardiomegaly with volume overload. No advanced congestive change or pulmonary edema. Titrate O2 per protocol - currently 95% on RA (2) Hypotension: Apparently dropped SBP into the 60s after being turned in the ED but unclear if this was accurate, pressures were running 90s systolically Given fluid bolus in ED, will hold off on further fluid given overload on CXR (3) Anemia: Hgb is 8.4, down from 11.2 in April Patient and son deny any s/s of bleeding, reported heme occult in ED was negative Iron panel am, CBC Patient does have a history of gross hematuria following self catheterization while on Xeralto - no longer anticoagulated (4) Paroxysmal atrial fibrillation: Continue metoprolol, not anticoagulated as above (5) Acute kidney injury: Baseline Cr is ~2.0, now 2.76. Given a bolus in ED, will hold off on further given overload on CXR Hold hctz for now prp am (6) Essential hypertension: continue metoprolol, hold hctz due to EDUARDA (7) Depression: Continue citalopram (8) Anxiety: continue citalopram Per ED notes there was some concern for misuse of lorazepam due to insomnia prior to admission, will hold for now (9) GERD (gastroesophageal reflux disease): Continue ppi (10) CAD (coronary artery disease), rincon coronary artery: Hold ASA in the setting of anemia History of CABG in the 1990s continue metoprolol, atorvastatin (11) Chronic kidney disease: CKD IV - baseline creat 2.1, now with EDUARDA avoid nephrotoxins where possible (12) Confusion: metabolic vs toxic encephalopathy hold lisinopril as above No apparent infection but with confusion and hypotension will order procalcitonin - UC ordered in ED (13) DVT prophylaxis: SCDs Dispo: lives with son, history of falls, PT/OT ordered History of Present Illness Mr. Dhillon is accompanied by his son whom he lives with. He is conversant but somewhat confused and his son provides much of his history. Presenting complaint is weakness, shortness of breath, mild cough and sore throat. He has not had any fever. No nausea or vomiting, eating and drinking well. He also mentions he has not slept for the past few nights due to insomnia. In the emergency department he was hypotensive and was provided with a bolus. Primary Care Provider: Phil Hicks MD Allergies Allergy/AdvReac Type Severity Reaction Status Date / Time No Known Allergies Allergy Unknown Verified 11/10/18 08:23 Home Medications Home Medications Medication Instructions Recorded Confirmed Type Prilosec OTC 20 mg PO QAM 12/30/17 11/10/18 History atorvastatin 80 mg PO HS 12/30/17 11/10/18 History citalopram [Celexa] 20 mg PO HS 12/30/17 11/10/18 History melatonin 3 mg PO HS PRN 12/30/17 11/10/18 History metoprolol tartrate 75 mg PO BID #0 tab 01/09/18 11/10/18 Rx dutasteride 0.5 mg PO HS 02/28/18 11/10/18 History aspirin [Aspir-81] 81 mg PO QAM 04/23/18 11/10/18 History diphenhydramine HCl [Benadryl] 25 mg PO Q4 PRN 04/23/18 11/10/18 History tolterodine 2 mg PO BID 04/23/18 11/10/18 History triamterene-hydrochlorothiazid 1 cap PO QAM 04/23/18 11/10/18 History amoxicillin-pot clavulanate 1 tab PO TID 11/10/18 11/10/18 History lorazepam 0.5 mg PO UD 11/10/18 11/10/18 History Past Med/Surg History Medical History Acute blood loss anemia 2/2 hematuria, had 2 units PRBCs during admission 02/28-03/03 Gross hematuria CAD (coronary artery disease), rincon coronary artery Paroxysmal atrial fibrillation (Chronic) Holding Xarelto due to hematuria currently. Did have cardioversion 2-3yrs ago. Elevated troponin (Resolved) Per discharge summary 01/09/18: "Likely because of EDUARDA , no ischemic concerns" Essential hypertension (Chronic) Depression (Chronic) Anxiety (Chronic) Obstructive uropathy (Acute) Caused EDUARDA, admitted [facility] 12/2017, discharged with Bernstein and then self- cathing. Caused injury self-cathing and was readmitted for blood loss. Acute kidney injury (Acute) Admitted [facility] 01/05-01/09 for obstruction uropathy/EDUARDA. Readmitted 02/28-03/03 for hematuria/acute blood loss anemia. GERD (gastroesophageal reflux disease) (Chronic) History of anesthesia reaction CONVULSIONS POST OP QUICK COMING AWAKE FROM CABG SURG 20 YRS AGO. 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 20 YRS AGO[place] [place] colonoscopy History of cardiac cath NO STENTS-20 YRS AGO History of cardioversion 2-3 YRS AGO [facility] Family History Brother Family history of esophageal cancer Other No pertinent family history Social History Preferred Language: [place] Communication Ability: Impaired Visual Impairment: No Limitations Economic Forecaster Required: No Beliefs That Will Affect Care: None Current Living Situation: Alone Current Living Situation Comment: lives with son Feels Safe at Home: Yes Smoking Status: Never smoker Do You Dip or Chew Tobacco: No ; Second Hand Exposure: No ; Hx Alcohol Use: No Hx Substance Use: No Review of Systems Review of Systems: All systems reviewed & are unremarkable except as noted in HPI & below Physical Exam Physical Exam: General: no distress Eyes: normal inspection, PERLL EENT: unable to visualize tonsils or back of throat Respiratory: chest non tender, clear to auscultation, normal breath sounds, no respiratory distress, no accessory muscle use Cardiac: regular rate and rhythm, no rub or gallop, no murmur, no edema, no jvd GI/: active bowel sounds, no abd pain or tenderness, soft, non distended Extremities: normal range of motion, normal strength, non tender Neuro:oriented to person, moves all extremities Psych: alert, normal mood and affect Skin: normal color, dry Results & Data Vital Signs (Past 12 Hours) Vital Signs Temp Pulse Pulse Resp BP BP Pulse Ox 11/10/18 10:45 89 26 H 97/64 L 93 11/10/18 09:34 81 23 99/50 L 97 11/10/18 09:14 72 23 120/56 L 95 11/10/18 08:36 71 26 H 96 11/10/18 08:19 73 22 95 11/10/18 07:54 36.4 C L 72 20 116/69 99 Code Status & VTE Plan Code Status full Supervising Physician Co-Signing Physician Notes I supervised Belén Fernandez NP on this patient's care. I examined the patient today independently of her. I discussed the plan of care with her with the plan being as written in her note except for any following changes/exceptions: Following issues: 1) EDUARDA: Baseline Cr is ~2.0. He had an EDUARDA in 03/2018 due to post-obstructive EDUARDA from BPH. At that time Cr was up to 4.5. After resolution, his Cr was downtrending. Patient had a TURP in 05/2018 and has been voiding freely since then, so obstructive symptoms today seem unlikely. Will get a bladder scan just to ensure no further obstruction. Otherwise, EDUARDA could be due to pre-renal vs. cardiorenal. He has no overt signs of CHF, including no edema, no JVD (as best as can tell), no orthopnea or FELIZ. BNP is elevated, but this is in the setting of the EDUARDA and therefore less reliable. Received IV fluids in the ED. Holding BP meds. Will trend. Hold his diuretic. If worsening, will get nephro involved. 2) Anemia: Likely iron deficiency and/or anemia of CKD & chronic disease. No further hematuria since March. No melena or bloody stools. Fecal occult was negative in the ED. No signs of bleeding elsewhere. Will get iron panel & B12/folate with AM labs. 3) Shortness of breath - Unclear how significant this is. Patient mostly reports to me that he has had a stuffy nose and a sore throat rather than actual shortness of breath. He reports he can do his normal level of activity with stable dyspnea. CXR shows pulmonary vascular engorgement, but no pulmonary edema. This may all be upper respiratory with a bronchitis. Patient reports minimal symptoms on my interview. Will get echo to assess for cardiomyopathy. If something significant is found, will get cardiology involved. 4) Confusion: Likely due to Ativan and/or sleep deprivation as patient reports not sleeping for several days and his son reported he tripled his Ativan to help him sleep. Appears to be near baseline at present. Monitor. PG Care Time/CCT Total # of Minutes Spent Total Time Spent with Patient: Total time spent is greater than 50% in coordination of care (as documented) at patient's floor/unit and/or counseling patient: (1) Anemia Anemia type: unspecified type Qualified Code(s): D64.9 - Anemia, unspecified (2) CAD (coronary artery disease), rincon coronary artery Associated angina: without angina [place] vs. transplanted heart: rincon heart Qualified Code(s): I25.10 - Atherosclerotic heart disease of rincon coronary artery without angina pectoris
[2018-11-10] MEDS ORDERED: POLYETHYLENE (MIRALAX) 17 GM PACK PO PRN (12:37)
[2018-11-10] MEDS ORDERED: PERFLUTREN LIPID MICROSPHERE (DEFINITY) IV ONE (13:52)
[2018-11-10] MEDS: AVODART: ORDER AWAITING ACTION SCH (14:19)
[2018-11-10] MEDS: CITALOPRAM 20 MG TAB PO SCH (20:02)
[2018-11-10] MEDS: METOPROLOL TARTRATE 50 MG TAB PO SCH (20:02)
[2018-11-10] MEDS: TOLTERODINE TARTRATE 2 MG TAB PO SCH (20:03)
[2018-11-10] MEDS: ATORVASTATIN 40 MG TAB PO SCH (20:03)
[2018-11-11] MEDS: AVODART: ORDER AWAITING ACTION SCH ×3 (00:54→08:22)
[2018-11-11 06:24] LABS: Hematocrit (blood only) 28.5 % (42-52); Hemoglobin 9.1 g/dL (14.0-18.0); Mean Corpuscular Hemoglobin 26.8 pg (25-34); Mean Corpuscular Hgb Conc 31.9 g/dL (32-36); Mean Corpuscular Volume 84.1 fL (80-100); Mean Platelet Volume 9.1 fL (7.4-10.4); Platelet Count 268 K/uL (130-400); RDW Coefficient of Variation 18.9 % (11.5-14.5); RDW Standard Deviation 58.8 fL (36.4-46.3); Red Blood Count 3.39 M/uL (4.7-6.1); White Blood Count 9.59 K/uL (4.8-10.8)
[2018-11-11 06:52] LABS: BUN Creatinine Ratio 22.9 (10-20); Calcium 8.4 mg/dl (8.5-10.1); Creatinine Clr Calc Pharmacy 37.7 ml/min; Est GFR (African American) 38.3; Est GFR (Non-African American) 33.1; Potassium 4.5 mmol/L (3.5-5.1)
[2018-11-11 08:19] LABS: Folate (Folic Acid) 11.6 ng/ml (>5.38)
[2018-11-11] MEDS: PANTOprazole 40 MG TAB PO SCH (08:20)
[2018-11-11] MEDS: TOLTERODINE TARTRATE 2 MG TAB PO SCH ×2 (08:20→20:53)
[2018-11-11] MEDS: METOPROLOL TARTRATE 50 MG TAB PO SCH (08:20)
[2018-11-11] MEDS: CYANOCOBALAMIN (VITAMIN B-12) 100 MCG TABLET PO SCH (11:24)
[2018-11-11] MEDS ORDERED: METOPROLOL TARTRATE 25 MG TAB PO ONE (15:00)
[2018-11-11] MEDS ORDERED: IRON DEXTRAN COMPLEX 25 MG in SYRINGE 0 ML IV ONE (15:15)
[2018-11-11] MEDS ORDERED: IRON DEXTRAN COMPLEX 75 MG in SYRINGE 0 ML IV ONE (16:30)
--- NOTE | 2018-11-11 16:58 | Hospitalist Progress Note ---
Date of Service November 11, 2018 Assessment & Plan (1) Acute dyspnea: - Acute SOB may be related to anemia vs. A. fib with RVR that occurs during exertion -- HR increased to 120's with exertion on monitor. - Has been stable on room air. - TTE showed preserved EF, left atrial severe dilation, no wall motion abnormalities. - CXR with cardiomegaly, ?volume overload -- pt. appears clinically euvolemic. - Will increase Metoprolol to 100 mg BID to control HR with exertion.. - Monitor CBC daily -- start IV iron x 3 days; no indication for transfusion support. - Consult cardiology for evaluation -- h/o CABG, has not been evaluated by band reamer machine operator in >15 years. (2) Paroxysmal atrial fibrillation: - A. fib with RVR noted on monitor during exertion, may be contributing to SOB. - Increase Metoprolol to 100 mg BID. - Continue telemetry monitoring. - No anticoagulation indicated -- h/o urologic bleeding in past. (3) Hypotension: - SBP noted to be in 60's during ED trip, lowest documented SBP was 90's. - Received fluids; holding further hydration in setting of congestion on CXR. - BP is now elevated -- increasing BB. (4) Acute metabolic encephalopathy: - Unclear baseline mental status -- pt. appears confused at times but is oriented to person and place. - UC is negative to date; no evidence of PNA on CXR. (5) Anemia: - Hgb is below baseline compared to Apr 2018; labs indicate severe iron deficiency anemia. - Will start IV Iron 100 mg x 3 days. - FOBT pending collection; no overt signs of bleeding. - Vit B12 level slightly low -- started B12 replacement daily. - Does have h/o anemia induced by catheterization in Mar 2018 while on Xarelto; s/p TURP in May 2018, no complications since then and off anticoagulation. (6) Essential hypertension: - Continue Metoprolol, increasing to 100 mg BID. - Holding HCTZ in setting of ARF. (7) Depression: - Continue Celexa as prescribed. (8) Anxiety: - Continue Celexa. - Holding home Ativan -- concern for misuse of medication in setting of insomnia. (9) GERD (gastroesophageal reflux disease): - PPI daily. (10) CAD (coronary artery disease), [place] coronary artery: - H/o CABG in ; has not been evaluated by band reamer machine operator in >15 years. - Holding ASA in setting of anemia. - Continue beta kenji and statin. - Consulted cardiology as noted above. (11) Aortic regurgitation: - Mod aortic regurg noted on TTE. (12) Acute kidney injury: - Baseline Creat appears to be ~1.8-2.1 -- was 2.76 on admission, now improved. - Holding home HCTZ. - Monitor renal function qAM; holding IV fluids due to CHF on CXR. (13) Chronic kidney disease: - Avoid nephrotoxins. (14) BPH (benign prostatic hyperplasia): - S/p TURP in May 2018. (15) DVT prophylaxis: - SCDs; holding anticoagulation due to h/o urologic bleeding. Dispo: PCU tele in setting of anemia/A. fib with RVR. Discharge likely over next 24-48 hours. Supervising Physician Co-Signing Physician Notes Attending Attestation and Progress Note: Pt seen/examined, chart reviewed, care plan d/w GISELLA Eugene. I agree w/ the concepcion components of her documentation. Pt reports feeling a little better today. During the visit I had him ambulate in the hallway; became dyspneic, and HRs mare to 120s. After returning to his room his HRs took 3-4 minutes to go to <100. Has been having FELIZ for 3 months at home. exam - gen - obese, NAD neck - no JVD heart - irregular, s1 s2, no murmur lungs - CTA b/l abd - soft ext - no edema A/P: 1. uncontrolled a.fib - titrate beta kenji. Consider cardiology consultation. Discuss anticoagulation with patient. Anemia certainly will make a.fib worse. 2. iron deficiency anemia - check fecal occult blood. Low Fe could be related to prior episode of severe hematuria a few months ago. IV Fe (venofer) while here. CBC am. 3. CAD - FELIZ could be symptom of this; strongly consider cardiology consultation. 4. acute kidney injury - resolving. 5. CKD stage 3 at baseline. 6. hypotension at admission - resolved. Maged Brunson MD Subjective Patient originally presented with complaints of dyspnea, but states that his breathing is as good as its going to get and that you are not giving me any diuretics because of a previous experience with Lasix. When asked if the patient knew where he was at, he stated that he was in a place called [employer], where they do experiments on you before ultimately stating he was at [facility], which is a place that [facility] had built to get what they wanted that they couldnt get in court. He states the only time he has shortness of breath is when he stops breathing and the only time he gets chest pain is if someone were to step on my chest. After discussion regarding excess fluid and need for diuresis, he stated that if a doctor isnt up here to discharge me by noon, Im leaving. Review of Systems Review of Systems: Other (Limited review of systems obtained. ) Constitutional: no fever, no chills, no fatigue and no weakness Respiratory: + dyspnea and + dyspnea on exertion; no cough Cardiovascular: no chest pain Physical Exam Physical Exam: General: Resting comfortably HEENT: NC/AT; PERRLA with EOMI; [place] conjunctiva, MMM. No erythema of posterior pharynx Neck: Supple and nontender Cardiac: Irregular, rate controlled. Lungs: CTA bilaterally Abdomen: Bowel normoactive X 4; Nontender to palpation Extremities: Warm. No edema present Neuro: No focal weakness; flight of ideas -- pt. appeared to be confused at times but was oriented to person and place. Skin: No rash Results & Data Vital Signs (Past 12 Hours) Vital Signs Temp Pulse Resp BP Pulse Ox 11/11/18 16:18 36.9 C 100 H 18 152/80 H 92 11/11/18 11:19 36.8 C 89 20 137/72 94 11/11/18 07:12 36.8 C 93 H 24 145/89 H 95 Laboratory Results 11/11/18 11/11/18 11/11/18 Range/Units 06:01 06:01 06:01 WBC 9.59 (4.8-10.8) K/uL RBC 3.39 L (4.7-6.1) M/uL Hgb 9.1 L (14.0-18.0) g/dL Hct 28.5 L (42-52) % MCV 84.1 (80-100) fL MCH 26.8 (25-34) pg MCHC 31.9 L (32-36) g/dL RDW Std Deviation 58.8 H (36.4-46.3) fL RDW Coeff of Marilynn 18.9 H (11.5-14.5) % Plt Count 268 (130-400) K/uL MPV 9.1 (7.4-10.4) fL Sodium 142 (136-145) mmol/L Potassium 4.5 (3.5-5.1) mmol/L Chloride 110 H (98-107) mmol/L Carbon Dioxide 26 (21-32) mmol/L Anion Gap 6.0 (3-11) BUN 44 H (7-18) mg/dl Creatinine 1.91 H D (0.6-1.4) mg/dl Est Cr Clr Drug Dosing 37.7 ml/min Est GFR ( Amer) 38.3 Est GFR (Non-Af Amer) 33.1 BUN/Creatinine Ratio 22.9 H (10-20) Glucose 100 H (70-99) mg/dl Calcium 8.4 L (8.5-10.1) mg/dl Iron 29 L (35-175) mcg/dl TIBC 464 H (250-450) mcg/dl Transferrin 350 (200-360) mg/dl Ferritin 12.0 (8-388) ng/ml Vitamin B12 369 (211-911) pg/ml Folate 11.60 (>5.38) ng/ml PG Care Time/CCT Total # of Minutes Spent Total Time Spent with Patient: Total time spent is greater than 50% in coordination of care (as documented) at patient's floor/unit and/or counseling patient: (1) Anemia Anemia type: unspecified type Qualified Code(s): D64.9 - Anemia, unspecified (2) CAD (coronary artery disease), [place] coronary artery Associated angina: without angina [place] vs. transplanted heart: [place] heart Qualified Code(s): I25.10 - Atherosclerotic heart disease of [place] coronary artery without angina pectoris
[2018-11-11] MEDS ORDERED: FERROUS SULFATE 325 MG TAB PO SCH (17:00)
[2018-11-11] MEDS: ATORVASTATIN 40 MG TAB PO SCH (20:52)
[2018-11-11] MEDS: METOPROLOL TARTRATE 100 MG TAB PO SCH (20:52)
[2018-11-11] MEDS: CITALOPRAM 20 MG TAB PO SCH (20:53)
[2018-11-11] MEDS: ACETAMINOPHEN 325 MG TAB PO PRN (23:30)
[2018-11-12] MEDS: AVODART: ORDER AWAITING ACTION SCH ×3 (03:32→15:09)
[2018-11-12 07:05] LABS: Hematocrit (blood only) 28.5 % (42-52); Mean Corpuscular Hemoglobin 26.4 pg (25-34); Mean Corpuscular Hgb Conc 31.6 g/dL (32-36); Mean Corpuscular Volume 83.6 fL (80-100); Platelet Count 270 K/uL (130-400); RDW Coefficient of Variation 18.5 % (11.5-14.5); RDW Standard Deviation 56.5 fL (36.4-46.3); Red Blood Count 3.41 M/uL (4.7-6.1); White Blood Count 10.31 K/uL (4.8-10.8)
[2018-11-12 07:35] LABS: Calcium 8.4 mg/dl (8.5-10.1); Creatinine Clr Calc Pharmacy 46.7 ml/min; Est GFR (African American) 49.7; Est GFR (Non-African American) 42.9; Potassium 4.5 mmol/L (3.5-5.1)
[2018-11-12] MEDS: PANTOprazole 40 MG TAB PO SCH (08:56)
[2018-11-12] MEDS: CYANOCOBALAMIN (VITAMIN B-12) 100 MCG TABLET PO SCH (08:56)
[2018-11-12] MEDS: METOPROLOL TARTRATE 100 MG TAB PO SCH ×2 (08:56→20:04)
[2018-11-12] MEDS: TOLTERODINE TARTRATE 2 MG TAB PO SCH ×2 (08:56→20:03)
[2018-11-12] MEDS: IRON DEXTRAN COMPLEX 100 MG in SYRINGE 0 ML IV SCH (08:56)
[2018-11-12] MEDS: ACETAMINOPHEN 325 MG TAB PO PRN (11:32)
--- NOTE | 2018-11-12 18:03 | Cardiology Consultation ---
Date of Consultation November 12, 2018 Assessment & Plan (1) Paroxysmal atrial fibrillation: He has a history of paroxysmal atrial fibrillation. Atrial fibrillation now may be persistent. Rate control strategy recommended. He is not symptomatic at rest. Dyspnea with exertion could be due to atrial fibrillation however rates are not significantly elevated currently on increased dose of metoprolol. Metoprolol has been increased by primary service from 75 mg twice daily to 100 mg daily . Continue current dose for now. Could consider adding low-dose diltiazem if blood pressure tolerates. Elevated chads Vasc score and therefore anticoagulation therapy is indicated if no contraindications. He has not had any bleeding outside of bleeding from UTI and TURP, which has since resolved. He appears to be agreeable. Discussed with primary service. (2) Dyspnea on exertion: Etiology uncertain but could be multifactorial. He has anemia, atrial fibrillation, and also CAD with bypass grafts that are at least 20 years old. Recommend myocardial perfusion study. He was agreeable and therefore the study was ordered. He was agreeable to remain hospitalized after further discussion with Dr. Saleh. He does not appear to be significantly hypervolemic and in fact he was hydrated here due to concern of hypovolemia as the cause of acute renal insufficiency. Diuretic has been discontinued by primary service. (3) CAD (coronary artery disease), [place] coronary artery: No angina but does have dyspnea with exertion. Recommend resuming home dose of aspirin 81 mg daily if no contraindication. Continue beta-kenji. Continue high-intensity statin therapy. (4) History of coronary artery bypass graft: Plan as above. (5) Aortic regurgitation: Non severe. Echo results discussed with him. Monitor over time. Would repeat echo in 1-2 years or sooner for concerning symptoms. Disposition: Plan of care discussed with Dr. Brunson of the primary hospitalist service. Cardiology will continue to follow. Thank you for allowing me to participate in the care of Mr. Dhillon. Please call with any other questions or concerns. History of Present Illness Reason for Consultation: Atrial fibrillation. CAD s/p CABG Requesting Physician: Dana Attending Physician: Maged Brunson History of Present Illness Mr. Dhillon is a 78-year-old gentleman with a history significant for CAD status [place] ( [place] [facility] [place] paroxysmal atrial fibrillation status post elective cardioversion in approximately 2016 or 2017, hypertension, anemia, CKD, and dyslipidemia. He was admitted on 11/10/2018 after taking 3 mg of Ativan and apparently had some degree of mental status change. He was seen earlier today for cardiology consultation. He states that he has self discontinued his diuretic approximately 3 weeks ago. He checks his blood pressure daily and has noted that his blood pressure has been dropping down to as low as 80/45 mmHg. He also reports a split second of near-syncope prior presentation but no actual syncope. He has chronic low back pain, and chronic dyspnea with exertion. He reports walking 1-1.5 miles at a time in the past but this has been limited due to back pain, sciatica, as well as dyspnea. He now has to stop 4 times on average due to his symptoms. He denies shortness of breath at rest, orthopnea, chest pain, angina, edema, melena, or hematochezia. He has had hematuria in the past following UTI and then TURP. He required blood transfusion from what he recalls. Since then, he has not had any further bleeding issues. He has been found to be iron deficient and has received intravenous iron infusion and with this, RD states that he feels much better overall. He repeatedly noted that he wanted to be discharged today. He also requests more Ativan and mentions that he may be withdrawing from Ativan. He has been having postnasal drip. He denies any significant cough however. No recent fevers. In regards to his atrial fibrillation history, he recalls undergoing elective direct current cardioversion by Cardiology through the [facility]. He otherwise does not follow with any specific intravenous therapy nurse. He recalls having an occluded LAD in the past, another vessel with a 65% lesion and then another v essel with mild nonobstructive disease prior to his CABG. He has not had a cardiac catheterization since his CABG approximately 20 years ago. While here, his creatinine was quite elevated compared to baseline, up to 2.76. He was given fluid bolus and his diuretic therapy was discontinued. His renal function has improved. He had been on Xarelto in the past but stopped taking it after his TURP as he did have hematuria. He does not recall being told to restarted and therefore he has not done so. Review of systems: As above. Review of systems otherwise negativ e/unremarkable. Family history: Mother at the age of 73. Father from accident. No known premature CAD. Social history: He denies tobacco or alcohol abuse. 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 He had 7 children. He is unaccompanied. Allergies Allergy/AdvReac Type Severity Reaction Status Date / Time No Known Allergies Allergy Unknown Verified 11/10/18 08:23 Home Medications Home Medications Medication Instructions Recorded Confirmed Type Prilosec OTC 20 mg PO QAM 12/30/17 11/10/18 History atorvastatin 80 mg PO HS 12/30/17 11/10/18 History citalopram [Celexa] 20 mg PO HS 12/30/17 11/10/18 History melatonin 3 mg PO HS PRN 12/30/17 11/10/18 History metoprolol tartrate 75 mg PO BID #0 tab 01/09/18 11/10/18 Rx dutasteride 0.5 mg PO HS 02/28/18 11/10/18 History aspirin [Aspir-81] 81 mg PO QAM 04/23/18 11/10/18 History diphenhydramine HCl [Benadryl] 25 mg PO Q4 PRN 04/23/18 11/10/18 History tolterodine 2 mg PO BID 04/23/18 11/10/18 History triamterene-hydrochlorothiazid 1 cap PO QAM 04/23/18 11/10/18 History amoxicillin-pot clavulanate 1 tab PO TID 11/10/18 11/10/18 History lorazepam 0.5 mg PO UD 11/10/18 11/10/18 History Patient History Medical History Acute blood loss anemia 2/2 hematuria, had 2 units PRBCs during admission 02/28-03/03 Gross hematuria CAD (coronary artery disease), [place] coronary artery Paroxysmal atrial fibrillation (Chronic) Holding Xarelto due to hematuria currently. Did have cardioversion 2-3yrs ago. Elevated troponin (Resolved) Per discharge summary 01/09/18: "Likely because of EDUARDA , no ischemic concerns" Essential hypertension (Chronic) Depression (Chronic) Anxiety (Chronic) Obstructive uropathy (Acute) Caused EDUARDA, admitted [facility] 12/2017, discharged with Bernstein and then self- cathing. Caused injury self-cathing and was readmitted for blood loss. Acute kidney injury (Acute) Admitted [facility] 01/05-01/09 for obstruction uropathy/EDUARDA. Readmitted 02/28-03/03 for hematuria/acute blood loss anemia. GERD (gastroesophageal reflux disease) (Chronic) History of anesthesia reaction CONVULSIONS POST OP QUICK COMING AWAKE FROM CABG SURG 20 YRS AGO. 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 [place] History of cardiac cath NO STENTS-20 YRS AGO History of cardioversion 2-3 YRS A[facility] Family History Brother Family history of esophageal cancer Other No pertinent family history Social History Preferred Language: German Communication Ability: Effective Visual Impairment: No Limitations Polisher Balance Screwhead Required: No Beliefs That Will Affect Care: None marital status: Single Current Living Situation: Alone Current Living Situation Comment: lives with son Feels Safe at Home: Yes Smoking Status: Never smoker Do You Dip or Chew Tobacco: No ; Second Hand Exposure: No ; Hx Alcohol Use: No Hx Substance Use: No Physical Exam Physical Exam: Gen.: No acute distress. Alert and oriented. HEENT: Anicteric sclera. Neck: No appreciable JVD. No bruits. Normal carotid upstrokes bilaterally. Cardiac: PMI was nondisplaced. No ventricular heave. Irregularly irregular. Normal S1-S2. No murmurs, rubs, or gallops. Pulmonary: Clear to auscultation bilaterally without wheezes, rales, or rhonchi. Abdomen: Soft, nontender, nondistended, with normoactive bowel sounds. No bruits noted. Extremities: 2+ radial pulses bilaterally. 2+ posterior tibialis pulses bilaterally. Trace bilateral lower extremity edema. No cyanosis. Psychiatric: Affect appears appropriate. Results & Data Vital Signs (Past 12 Hours) Vital Signs Temp Pulse Pulse Pulse Resp BP BP 11/12/18 16:26 36.9 C 82 18 153/82 H 11/12/18 13:10 84 11/12/18 11:48 36.7 C 78 20 151/78 H 11/12/18 07:08 37.3 C 90 17 145/67 H 11/12/18 07:06 95 H Pulse Ox 11/12/18 16:26 95 11/12/18 13:10 11/12/18 11:48 93 11/12/18 07:08 91 11/12/18 07:06 Laboratory Results Laboratory Results - last 24 hr 11/12/18 11/12/18 06:48 06:48 WBC 10.31 RBC 3.41 L Hgb 9.0 L Hct 28.5 L MCV 83.6 MCH 26.4 MCHC 31.6 L RDW Std Deviation 56.5 H RDW Coeff of Marilynn 18.5 H Plt Count 270 MPV 9.0 Sodium 139 Potassium 4.5 Chloride 106 Carbon Dioxide 26 Anion Gap 7.0 BUN 32 H Creatinine 1.54 H D Est Cr Clr Drug Dosing 46.7 Est GFR ( Amer) 49.7 Est GFR (Non-Af Amer) 42.9 BUN/Creatinine Ratio 21.0 H Glucose 101 H Calcium 8.4 L Diagnostic Findings Echo 11/10/2018: Normal left ventricular systolic function. EF 55-60%. Mild LVH. Severe left atrial dilation. Mild right atrial dilation. Moderate AI. Mild to moderate MR. RVSP 30-40. Telemetry personally reviewed: Atrial fibrillation with heart rate mostly in th e 80s to 90s. With ambulation in the hallway heart rate increased to approximately 115 bpm. No significant pauses. ECG personally reviewed: ECG 11/10/2018: Atrial fibrillation 68 bpm. Nonspecific T-wave abnormality. PG Care Time/CCT Total # of Minutes Spent Total Time Spent with Patient: Total time spent is greater than 50% in coordination of care (as documented) at patient's floor/unit and/or counseling patient: (1) CAD (coronary artery disease), [place] coronary artery [place] vs. transplanted heart: [place] heart Associated angina: without angina Qualified Code(s): I25.10 - Atherosclerotic heart disease of [place] coronary artery without angina pectoris
[2018-11-12] MEDS: LORazepam 1 MG TAB PO SCH (20:02)
[2018-11-12] MEDS: CITALOPRAM 20 MG TAB PO SCH (20:03)
[2018-11-12] MEDS: ATORVASTATIN 40 MG TAB PO SCH (20:03)
--- NOTE | 2018-11-12 20:58 | Hospitalist Progress Note ---
Date of Service November 12, 2018 Assessment & Plan (1) Acute dyspnea: acute/chronic. present for 3+ months but worse recently. a.fib could be contributing. anemia could be culprit as well. OR - dyspnea could be symptom of CAD. Continue IV Fe for iron def anemia. Continue beta kenji for rate control. Nuclear stress test in am to r/o ischemia as cause of dyspnea. Present on Admission?: Yes (2) Paroxysmal atrial fibrillation: h/o PAF in past. Now with sustained a.fib since admission. Rates acceptable with increased dose of metoprolol 100mg BID. Anticoagulation discussed today with Dr Fernandes. (3) Hypotension: Suspect due to volume depletion at presentation. EDUARDA was likely pre-renal in origin. Hypotension resolved w/ IV fluids. (4) Acute metabolic encephalopathy: resolved (5) Anemia: 2nd to Fe deficiency. IV venofer x 3 doses - day #2 today. B12 low-normal -- supplement. CBC in am. fecal occult blood pending. (6) Essential hypertension: Continue Metoprolol 100 mg BID. Holding HCTZ for now. (7) Depression: Continue Celexa (8) Anxiety: Continue Celexa. Resume ativan 1mg BID. (9) GERD (gastroesophageal reflux disease): PPI daily (10) CAD (coronary artery disease), [place] coronary artery: - H/o CABG in ; has not been evaluated by safety net maker in >15 years. - resume aspirin since H/H stable. - Continue beta kenji and statin. - Consulted cardiology and they have recommend nuclear stress test - NPO after MN tonight for stress in am. (11) Aortic regurgitation: Moderate aortic regurg noted on TTE. No symptoms; no Rx needed at this time. (12) Acute kidney injury: Resolved. Cr now 1.5. (13) Chronic kidney disease: stage 3, baseline Cr mid 1's. Cr today 1.5. (14) BPH (benign prostatic hyperplasia): S/p TURP in May 2018. NO LUTS at this time. (15) DVT prophylaxis: SCDs; holding anticoagulation for now. if stress test is negative tomorrow can d/c home then Subjective feels better today. however still with considerable FELIZ. in fact he went for 1 lap of walking in hallway, got back to room, and 5 minutes later was still dyspneic/tachypneic. "this has been going on for 3 months." no chest pain. eating well. states he takes ativan 1mg BID scheduled at home and "I'm not getting it here." tele - a.fib rates at rest <100; with walking 110-120. agreeable to nuc stress test in am. Review of Systems Constitutional: no fever and no chills Respiratory: + dyspnea on exertion; no cough and no wheezing Cardiovascular: + dyspnea on exertion; no chest pain, no chest pain at rest, no orthopnea, no paroxysmal nocturnal dyspnea, no palpitations and no edema Gastrointestinal: no abdominal pain, no nausea and no vomiting Physical Exam Constitutional: well developed, well nourished and + obese; no acute distress ENMT: external ear and nose normal, oropharynx normal Respiratory: normal respiratory effort, lungs clear to auscultation Cardiovascular: Rate/Rhythm: regular rate and + irregularly irregular Heart Sounds: normal S1 and normal S2; no murmur Vessels: posterior tibial pulses present and dorsalis pedis pulses present; no JVD Extremities: no edema Gastrointestinal (Abdomen): normal bowel sounds, soft, nontender, no hepatosplenomegaly Psychiatric: A+Ox3, euthymic affect Results & Data Vital Signs (Past 12 Hours) Vital Signs Temp Pulse Pulse Resp BP BP Pulse Ox 11/12/18 19:05 37.0 C 98 H 18 164/83 H 95 11/12/18 16:26 36.9 C 82 18 153/82 H 95 11/12/18 13:10 84 11/12/18 11:48 36.7 C 78 20 151/78 H 93 Laboratory Results Laboratory Results - last 24 hr 11/12/18 11/12/18 06:48 06:48 WBC 10.31 RBC 3.41 L Hgb 9.0 L Hct 28.5 L MCV 83.6 MCH 26.4 MCHC 31.6 L RDW Std Deviation 56.5 H RDW Coeff of Marilynn 18.5 H Plt Count 270 MPV 9.0 Sodium 139 Potassium 4.5 Chloride 106 Carbon Dioxide 26 Anion Gap 7.0 BUN 32 H Creatinine 1.54 H D Est Cr Clr Drug Dosing 46.7 Est GFR ( Amer) 49.7 Est GFR (Non-Af Amer) 42.9 BUN/Creatinine Ratio 21.0 H Glucose 101 H Calcium 8.4 L PG Care Time/CCT Total # of Minutes Spent Total Time Spent with Patient: Total time spent is greater than 50% in coordination of care (as documented) at patient's floor/unit and/or counseling patient: (1) BPH (benign prostatic hyperplasia) Lower urinary tract symptom presence: symptoms absent Qualified Code(s): N40.0 - Benign prostatic hyperplasia without lower urinary tract symptoms (2) Anemia Anemia type: unspecified type Qualified Code(s): D64.9 - Anemia, unspecified (3) Aortic regurgitation Cardiac valve disease etiology: etiology unspecified Qualified Code(s): I35.1 - Nonrheumatic aortic (valve) insufficiency (4) Depression Depression Type: other depression Qualified Code(s): F32.89 - Other specified depressive episodes (5) Chronic kidney disease Chronic kidney disease stage: stage 3 (moderate) Qualified Code(s): N18.3 - Chronic kidney disease, stage 3 (moderate) (6) CAD (coronary artery disease), [place] coronary artery Associated angina: without angina [place] vs. transplanted heart: [place] heart Qualified Code(s): I25.10 - Atherosclerotic heart disease of [place] coronary artery without angina pectoris (7) GERD (gastroesophageal reflux disease) Esophagitis presence: esophagitis presence not specified Qualified Code(s): K21.9 - Gastro-esophageal reflux disease without esophagitis (8) Hypotension Hypotension type: other hypotension type Qualified Code(s): I95.89 - Other hypotension
[2018-11-13] MEDS: AVODART: ORDER AWAITING ACTION SCH ×3 (00:43→15:11)
[2018-11-13 06:41] LABS: Hematocrit (blood only) 28.7 % (42-52); Mean Corpuscular Hemoglobin 26.3 pg (25-34); Mean Corpuscular Hgb Conc 31.4 g/dL (32-36); Mean Corpuscular Volume 83.9 fL (80-100); Mean Platelet Volume 8.9 fL (7.4-10.4); Nucleated RBC # (auto) 0.02 K/uL (0-0); Nucleated RBC % (auto) 0.2 %; Platelet Count 259 K/uL (130-400); RDW Coefficient of Variation 18.4 % (11.5-14.5); RDW Standard Deviation 55.9 fL (36.4-46.3); Red Blood Count 3.42 M/uL (4.7-6.1); White Blood Count 8.32 K/uL (4.8-10.8)
[2018-11-13 07:15] LABS: BUN Creatinine Ratio 18.4 (10-20); Calcium 8.5 mg/dl (8.5-10.1); Creatinine Clr Calc Pharmacy 46.2 ml/min; Est GFR (African American) 49.7; Est GFR (Non-African American) 42.9; Potassium 4.5 mmol/L (3.5-5.1)
[2018-11-13] MEDS: LORazepam 1 MG TAB PO SCH (07:39)
[2018-11-13] MEDS ORDERED: REGADENOSON 0.4 MG/5 ML SYR IV ONE (09:34)
[2018-11-13] MEDS ORDERED: ASPIRIN 81 MG ECTAB PO SCH (09:45)
[2018-11-13] MEDS: METOPROLOL TARTRATE 100 MG TAB PO SCH ×2 (11:00→19:24)
[2018-11-13] MEDS: PANTOprazole 40 MG TAB PO SCH (11:01)
[2018-11-13] MEDS: TOLTERODINE TARTRATE 2 MG TAB PO SCH ×2 (11:01→19:23)
[2018-11-13] MEDS: CYANOCOBALAMIN (VITAMIN B-12) 100 MCG TABLET PO SCH (11:01)
[2018-11-13] MEDS: IRON DEXTRAN COMPLEX 100 MG in SYRINGE 0 ML IV SCH (11:46)
--- NOTE | 2018-11-13 15:33 | Myocardial Perfusion Study ---
Date of Service November 13, 2018 Myocardial Perfusion Study [facility] Myocardial Perfusion Study Report Procedure: 1. Myocardial perfusion study performed in multiple views/images 2. Lexiscan pharmacologic stress ECG Indications: 1. Dyspnea with exertion 2. CAD status post CABG x2 Ordering physician: Dr. Trinidad Procedural details: For the stress portion of the study, Lexiscan 0.4 mg was intravenously administered followed by a saline flush. This was followed by 29.8 mCi of techn etium 99m Cardiolite, injected at 9:55 a.m. on 11/13/2018. 30 minutes following the injection, imaging of the heart was performed in multiple projections. For the rest portion of the study, 10.3 mCi technetium 99m Cardiolite was injected intravenously at 8:05 a.m. on 11/13/2018. 1 hour following the injection, imaging of the heart was performed in the same projections. Lexiscan stress ECG: Resting ECG demonstrated: Atrial fibrillation 89 bpm Maximum heart rate: 117 bpm Maximal, age-predicted heart rate: 81 % Resting blood pressure: 169/89 mmHg Maximum blood pressure: 169/[address] changes: None Arrhythmia: Atrial fibrillation throughout Symptoms: None reported Findings: Rotating raw imaging demonstrated no significant lung uptake. There is no significant motion artifact. Heart size appeared normal. Myocardial perfusion demonstrated a moderate sized area of severely reduced uptake involving the base to mid inferolateral wall which was reversible in rest imaging. There was another small area of mildly reduced uptake involving the distal anterolateral wall, which also appeared reversible in resting images. Ejection fraction: 57 % Wall motion: Normal No significant transient ischemic dilation. Impression: 1. Abnormal myocardial perfusion study suggesting moderate sized area of base to mid inferolateral ischemia as well as a small area of distal anterolateral ischemia. 2. Normal wall motion and LV systolic function. EF 57%. 3. No chest pain reported. 4. Nondiagnostic Lexiscan ECG.
[2018-11-13] MEDS ORDERED: ISOSORBIDE MONO EXTENDED REL 30 MG TABCR PO ONE (16:15)
[2018-11-13] MEDS ORDERED: dilTIAZem HCL 120 MG CAPCR PO SCH (16:15)
--- NOTE | 2018-11-13 16:15 | Cardiology Progress Note ---
Date of Service November 13, 2018 Assessment & Plan (1) Paroxysmal atrial fibrillation: He has a history of paroxysmal atrial fibrillation. Atrial fibrillation now may be persistent. Rate control strategy recommended. He is not symptomatic at rest. Heart rate persisted to be elevated in the 115 range yesterday after walking. Heart rate at rest is reasonable. Continue beta-kenji. Given dyspnea with exertion and abnormal myocardial perfusion study, diltiazem 120 mg once daily will also be added to his regimen. Chads Vasc score is elevated and therefore anticoagulation therapy is indicated if no contraindications. He has not had any bleeding outside of bleeding from UTI and TURP, which has since resolved. Discussed with primary service. (2) Dyspnea on exertion: Exercise tolerance appears to have declined over the past few months and it took him some time to recover yesterday with only 1 lap in the hallway of slow walking. EtiologyPossibly multifactorial. He has abnormal myocardial perfusion study suggesting circumflex territory ischemia. He has elevated heart rates with low level exertion, as well as anemia. He appears euvolemic. Adjusting medical therapy. (3) CAD (coronary artery disease), [place] coronary artery: No angina but does have dyspnea with exertion. Recommend resuming home dose of aspirin 81 mg daily if no contraindication. Continue beta-kenji. Adding diltiazem. Also initiate isosorbide mononitrate 30 mg once daily. Given abnormal myocardial perfusion study, cardiac catheterization was discussed, consider, and recommended however he declines. His son was clear to inform his father that he wishes for him to undergo cardiac catheterization, but Mr. Dhillon adamantly declines. He prefers medical therapy and will consider cardiac catheterization in the future if he feels no better. Continue high- intensity statin therapy. Cardiac catheterization card from [facility] on 11/06/1997 reported proximal LAD 100%, distal RCA 60%, mid circumflex 30-40%. (4) History of coronary artery bypass graft: Plan as above. (5) Aortic regurgitation: Non severe. Echo results discussed with him. Monitor over time. Would repeat echo in 1-2 years or sooner for concerning symptoms. (6) Abnormal nuclear stress test: Myocardial perfusion study results were discussed with patient and his son, [place], was present at the bedside. Cardiac catheterization was recommended however he declines and prefers medical therapy. Will initiate calcium channel kenji to improve his heart rate with exertion, as well as his blood pressure as he has been hypertensive. Optimize medical therapy. Continue beta-kenji at current dose. Nitrate therapy will be initiated. He was informed that if he feels worse or symptoms failed to improve at home, to call and cardiac catheterization can be reconsidered. Disposition: He is adamant about being discharged today. We discussed the fact that ideally we would medicate him and reassess for symptoms but he is adamant about going home. His son also voiced his concern to his father, wishing for his father to remain here for further treatment/evaluation. If he is discharged today, follow-up next week. Cardiology office is making that appointment for him. Patient care discussed with Dr. Brunson of the primary hospitalist service. Subjective He continues to have dyspnea on exertion. He has not had SOB at rest. No chest pain. No reported syncope. He wants to go home today. He had nuclear stress done earlier today, which was predominantly abnormal in the circumflex territory (inferolateral wall). His son, [place], is at the bed side. Review of systems: As above. Physical Exam Physical Exam: Gen.: No acute distress. Alert and oriented. HEENT: Anicteric sclera. Neck: No appreciable JVD. Cardiac: Irregularly irregular. Normal S1-S2. No murmurs, rubs, or gallops. Pulmonary: Clear to auscultation bilaterally without wheezes, rales, or rhonchi. Abdomen: Soft, nontender, nondistended, with normoactive bowel sounds. No bruits noted. Extremities: 2+ radial pulses bilaterally. 2+ posterior tibialis pulses bilaterally. No significant lower extremity edema. No cyanosis. Psychiatric: Affect appears appropriate. Results & Data Vital Signs (Past 12 Hours) Vital Signs Temp Pulse Pulse Resp BP Pulse Ox 11/13/18 15:16 36.5 C 83 18 141/69 H 92 11/13/18 14:20 86 11/13/18 11:26 36.6 C 130 H 19 164/76 H 96 Intake & Output 11/11/18 11/12/18 11/13/18 11/14/18 06:59 06:59 06:59 06:59 Intake Total 785 / 785 1140 / 1140 755 / 755 370 / 370 Output Total 750 / 750 1400 / 1400 2175 / 2175 800 / 800 Balance 35 / 35 -260 / -260 -1420 / -1420 -430 / -430 Weight 106.6 kg 106.2 kg 104 kg Laboratory Results Laboratory Results - last 24 hr 11/13/18 11/13/18 06:27 06:27 WBC 8.32 RBC 3.42 L Hgb 9.0 L Hct 28.7 L MCV 83.9 MCH 26.3 MCHC 31.4 L RDW Std Deviation 55.9 H RDW Coeff of Marilynn 18.4 H Plt Count 259 MPV 8.9 Absolute Nucleated RBC 0.02 H Nucleated RBC % (auto) 0.2 Sodium 139 Potassium 4.5 Chloride 106 Carbon Dioxide 29 Anion Gap 4.0 BUN 28 H Creatinine 1.54 H Est Cr Clr Drug Dosing 46.2 Est GFR ( Amer) 49.7 Est GFR (Non-Af Amer) 42.9 BUN/Creatinine Ratio 18.4 Glucose 102 H Calcium 8.5 Diagnostic Findings Myocardial perfusion study 11/13/18: Abnormal concerning for inferolateral and distal anterolateral ischemia. Normal EF and wall motion. Telemetry personally reviewed: Afib. Medications Administered Current Inpatient Medications Acetaminophen (Tylenol) 650 mg PO Q4H PRN PRN Reason: Pain or Fever Stop: 12/10/18 12:36 Last Admin: 11/12/18 11:32 Dose: 650 mg Documented by: Aspirin (Ecotrin Ectab) 81 mg PO [facility] Stop: 12/13/18 09:44 Last Admin: 11/13/18 11:02 Dose: 81 mg Documented by: Atorvastatin Calcium (Lipitor) 80 mg PO [facility] Stop: 12/10/18 20:59 Last Admin: 11/12/18 20:03 Dose: 80 mg Documented by: Citalopram Hydrobromide (Celexa) 20 mg PO [facility] Stop: 12/10/18 20:59 Last Admin: 11/12/18 20:03 Dose: 20 mg Documented by: Cyanocobalamin (Vitamin B-12) 100 mcg PO [facility] Stop: 12/11/18 08:59 Last Admin: 11/13/18 11:01 Dose: 100 mcg Documented by: Diphenhydramine HCl (Benadryl Capsule) 25 mg PO Q4 PRN PRN Reason: Allergic Symptoms Stop: 12/10/18 12:36 Last Admin: 11/12/18 20:02 Dose: 25 mg Documented by: Lorazepam (Ativan) 1 mg PO BID [facility] Stop: 12/12/18 20:59 Last Admin: 11/13/18 07:39 Dose: 1 mg Documented by: Metoprolol Tartrate (Lopressor) 100 mg PO BID [facility] Stop: 12/11/18 20:59 Last Admin: 11/13/18 11:00 Dose: 100 mg Documented by: Miscellaneous (Order Awaiting Action) 1 ea N/A QS [facility] Stop: 12/10/18 15:59 Last Admin: 11/13/18 15:11 Dose: Not Given Documented by: Pantoprazole Sodium (Protonix) 40 mg PO QAM [facility] Stop: 12/11/18 08:59 Last Admin: 11/13/18 11:01 Dose: 40 mg Documented by: Polyethylene Glycol (Miralax Powder Packet) 17 gm PO DAILY PRN PRN Reason: Constipation Stop: 12/10/18 12:36 Tolterodine Tartrate (Detrol) 2 mg PO BID [facility] Stop: 12/10/18 20:59 Last Admin: 11/13/18 11:01 Dose: 2 mg Documented by: PG Care Time/CCT Total # of Minutes Spent Total Time Spent with Patient: Total time spent is greater than 50% in coordination of care (as documented) at patient's floor/unit and/or counseling patient: (1) Aortic regurgitation Cardiac valve disease etiology: etiology unspecified Qualified Code(s): I35.1 - Nonrheumatic aortic (valve) insufficiency (2) CAD (coronary artery disease), [place] coronary artery Associated angina: without angina [place] vs. transplanted heart: [place] heart Qualified Code(s): I25.10 - Atherosclerotic heart disease of [place] coronary artery without angina pectoris
[2018-11-13] MEDS: CITALOPRAM 20 MG TAB PO SCH (19:23)
[2018-11-13] MEDS: ATORVASTATIN 40 MG TAB PO SCH (19:23)
[2018-11-14] MEDS ORDERED: ISOSORBIDE MONO EXTENDED REL 30 MG TABCR PO SCH (09:00)
--- NOTE | 2018-11-16 14:20 | Discharge Summary ---
Date of Service November 16, 2018 Admission HPI Per Admitting Provider Mr. Dhillon is a 78yo male with h/o PAF, CAD and CABG 20+ years ago who presented with multiple complaints. He was accompanied by his son with whom he lives. He is conversant but somewhat confused and his son provides much of his history. Presenting complaints included weakness, shortness of breath, mild cough and sore throat. He has not had any fever. No nausea or vomiting. Eating and drinking have been fair at best. He also mentions he has not slept for the past few nights due to insomnia. In the emergency department he was hypotensive and was provided with a bolus. Initial EKG showed atrial fibrillation. Principal Diagnosis acute kidney injury Discharge Exam Constitutional well developed, well nourished and + obese; no acute distress ENMT external ear and nose normal, oropharynx normal Respiratory normal respiratory effort, lungs clear to auscultation Cardiovascular Rate/Rhythm: regular rate and + irregularly irregular Heart Sounds: normal S1 and normal S2; no murmur Vessels: posterior tibial pulses present and dorsalis pedis pulses present; no JVD Extremities: no edema Gastrointestinal (Abdomen) normal bowel sounds, soft, nontender, no hepatosplenomegaly Psychiatric A+Ox3, euthymic affect Discharge Data Allergies Allergy/AdvReac Type Severity Reaction Status Date / Time No Known Allergies Allergy Unknown Verified 11/10/18 08:23 Consultations cardiology - Anival Trinidad MD Procedures Performed Lexiscan nuclear stress test - Impression: 1. Abnormal myocardial perfusion study suggesting moderate sized area of base to mid inferolateral ischemia as well as a small area of distal anterolateral ischemia. 2. Normal wall motion and LV systolic function. EF 57%. 3. No chest pain reported. 4. Nondiagnostic Lexiscan ECG. echocardiogram - * EF normal - 55-60% * mild-moderate MR * normal LV wall motion Hospital Course (1) Acute dyspnea: Acute/chronic. Present for 3+ months but worse recently. A.fib could be contributing. Anemia could be contributing as well. OR - dyspnea could be symptom of CAD. For his iron def anemia he received 3 daily doses of IV iron. His beta kenji was titrated for improved a.fib rate control and diltiazem CD was also added. On day of discharge the patient underwent nuclear stress test and this was markedly abnormal as noted above. Heart catheterization was strongly recommended by cardiology but the patient declined to undergo this during the hospital stay. Instead he wanted to return home first, have follow-up in the cardiology office, and then possibly undergo the cath in the near future. Despite the dyspnea his O2 sats were normal at rest and with activity. (2) Paroxysmal atrial fibrillation: h/o PAF in past. Presented with sustained a.fib and he was in a.fib the entire admission. Rates were acceptable with increased dose of metoprolol 100mg BID and addition of diltiazem CD. Anticoagulation discussed with patient but he declined such. The a.fib could have been contributing to his dyspnea at home. 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 - Continue aspirin. - Continue beta kenji and statin. - Stress test results as noted above. (4) Hypotension: Suspect due to volume depletion at presentation. EDUARDA was likely pre-renal in origin as well. Hypotension resolved w/ IV fluids. (5) Acute metabolic encephalopathy: vs toxic encephalopathy. By history he apparently took ativan with a muscle relaxer to help with sleep at home. Or, perhaps his EDUARDA contributed to the confusion. Suspect the confusion was due to toxic effects. Either way mental status returned to baseline. (6) Anemia: 2nd to Fe deficiency - severe, with ferritin level of 12. s/p IV venofer x 3 doses. B12 was low-normal -- supplement. Heme testing was apparently negative in the ER. Hemoglobin at discharge was 9. The low iron could be from his severe hematuria he had had earlier in 2019. Repeat CBC after discharge advised for stability. (7) Iron deficiency anemia: As above. (8) Essential hypertension: Continue Metoprolol 100 mg BID. Diltiazem and imdur also added. HCTZ discontinued. (9) Depression: Continue Celexa. (10) Anxiety: Continue Celexa. Also takes ativan 1mg BID on regular basis at home. [place] PD[place]. (11) GERD (gastroesophageal reflux disease): PPI daily (12) Aortic regurgitation: Moderate aortic regurg noted on TTE. No symptoms; no Rx needed at this time. (13) Acute kidney injury: Resolved. Peak Cr 2.7. Cr 1.5 at discharge. 2nd to volume depletion? (14) Chronic kidney disease: stage 3, baseline Cr mid 1's. (15) BPH (benign prostatic hyperplasia): S/p TURP in May 2018. NO LUTS at this time. Total Time Total Time Spent Total Time Spent (In Minutes): 45 Total Time Includes: Examination of the Patient, Discharge Planning, Medication Reconciliation and Communication With Other Providers Discharge Plan Discharge Items Patient Disposition: Home - Self-Care Reason For Visit: ANEMIA, low blood pressure Discharge Diagnosis: 1. iron deficiency anemia - stable 2. low blood pressure - resolved 3. atrial fibrillation - ongoing 4. abnormal nuclear stress test suggesting active blockages of your coronary arteries 5. shortness of breath - likely multifactorial (anemia, a.fib, coronary disease, etc) Condition: Fair Discharge Goals: Diagnostic testing and Therapeutic intervention Activity: As commented below Activity Comment: no strenuous activities Lifting: Wait until after follow-up appointment Bathing: No limitations Sexual Activity: Wait until after follow-up appointment Exercise/Sports: Wait until after follow-up appointment Driving/Machine Use: No limitations Non-emergency contact: Primary Care Provider and Glass Mold Repairer Call non-emergency contact if: you have any medication questions, your symptoms worsen and your temperature is above 100.5 Follow-up/Referrals: Meet Trinidad MD [Physician] - 11/21/18 12:45 pm (see Dr Trinidad within 1-2 weeks) Phil Hicks MD [Primary Care Provider] - (see Dr Munira Romeo within 5-7 days) Diet: Heart Healthy Addtl Provider Instructions: You were treated for acute kidney injury (your creatinine, or kidney function level, was initially elevated); low blood pressure early on in your stay; atrial fibrillation; iron deficiency anemia; and shortness of breath. The rise in your creatinine was temporary and was likely due to dehydration/low blood pressure both of which resolved. Your creatinine value at discharge was 1.5. We gave you 3 IV iron treatments for your iron deficiency, made adjustments to your medications for your a.fib, and had [facility] see you for your coronary disease and a.fib. On 11/13 you underwent a stress test and this was ABNORMAL suggesting you may have blocked coronary arteries again. Dr Trinidad recommended a heart catheterization but you would like to medically manage this for now. The shortness of breath you have been having is likely due to multiple issues including the anemia/low iron, a.fib, and coronary disease. Recommendations - 1. please see Dr Amos JAVEDP to discuss outpatient heart catheterization in the very near future. I would advise you to pursue this as quickly as possible. 2. continue asso-dky-ztnlehk iron 1 tablet twice a day for 2-3 more months. 3. continue uymc-vuz-kknpaie vitamin B12 1000mcg daily for about 1 year. 4. keep a bottle of nitroglycerin tablets with you at all times in the event you experience chest pain or severe shortness of breath. 5. take the following heart medications - * diltiazem HCL 120mg once daily - new script given * isosorbide mononitrate 30mg once daily - new script given * INCREASE your metoprolol to 100mg twice a day - new script given 6. have Dr Munira Romeo repeat your CBC and BMP in 5-7 days 7. STOP your triamterene-hydrochlorothiazide 8. Have Dr Munira Romeo check for blood in your stool with a "hemoccult card" 9. consider anticoagulation (blood thinners) for your a.fib; you can speak to Dr Trinidad about this at the time of follow-up Follow-up -- see separate section Return to [facility] if -- * you have severe shortness of breath or chest pain * you have worsening weakness or fatigue * you see dark, tarry stools or bright red blood in your stools * you have to take nitroglycerin under your tongue for chest pain * any other concerns Prescriptions: New isosorbide mononitrate 30 mg Tablet Extended Release 24 Hr 30 mg PO QAM Qty: 30 RF: 5 diltiazem HCl 120 mg Capsule,Extended Release 24hr 120 mg PO QAM Qty: 30 RF: 5 ferrous sulfate 325 mg (65 mg iron) tablet 325 mg PO BID Qty: 60 RF: 2 cyanocobalamin (vitamin B-12) 1,000 mcg capsule 1,000 mcg PO DAILY Qty: 90 RF: 3 nitroglycerin 0.4 mg tablet, sublingual 0.4 mg sublingual Q5M PRN (Reason: chest pain) Qty: 1 RF: 0 metoprolol tartrate 100 mg tablet 100 mg PO BID Qty: 60 RF: 5 Continued atorvastatin 80 mg Tablet 80 mg PO HS RF: 0 melatonin 3 mg Tablet 3 mg PO HS PRN (Reason: Sleep) RF: 0 citalopram [Celexa] 20 mg Tablet 20 mg PO HS RF: 0 Prilosec OTC 20 mg Tablet,Delayed Release (Dr/Ec) 20 mg PO QAM RF: 0 dutasteride 0.5 mg capsule 0.5 mg PO HS RF: 0 tolterodine 2 mg Tablet 2 mg PO BID RF: 0 aspirin [Aspir-81] 81 mg Tablet,Delayed Release (Dr/Ec) 81 mg PO QAM RF: 0 diphenhydramine HCl [Benadryl] 25 mg Capsule 25 mg PO Q4 PRN (Reason: Allergic Symptoms) RF: 0 Changed lorazepam 0.5 mg tablet 0.5 mg PO BID Qty: 0 RF: 0 Discontinued triamterene-hydrochlorothiazid 37.5-25 mg Capsule 1 cap PO QAM RF: 0 amoxicillin-pot clavulanate 500-125 mg tablet 1 tab PO TID RF: 0 Stand-Alone Forms: [facility]charge Orders: Discharge Order (Routine); Ordered 11/13/18 Ordered By: Maged Brunson Admission Data Admit Date/Time: 11/10/18 11:37 Attending Provider: Maged Brunson Admit Provider: Praneeth Marquez Primary Care Provider: Phil Hicks Other Providers: Belén Fernandez ; Veena De Anda ; Meet Trinidad Service: Telemetry Other Interventions: Discharge Summary Assessment (RN) Last Done: 11/13/18 19:38 Pending Studies at Discharge: No DC Date/Time DO NOT enter until pt leaves facility: 11/13/18 19:44
== END 2018-11-13 19:44 | disposition home or self-care (01) | DRG 308 ==
LOC: ED 07:49 → 2S 11:37 → SUATTDRO 11:37 → 2S 12:10

== ENCOUNTER 2018-11-17 20:46 | Inpatient (IN) ==
--- NOTE | 2018-11-17 21:16 | Emergency Department Note ---
Entered by Andreea Saini acting as a scribe for Kirt Estrella DO History of Present Illness General Chief complaint: Shortness of Breath/Dyspnea Stated complaint: CHEST PAIN,SOB,WEAK Source: patient Limitations: no limitations History of Present Illness Provider complaint: shortness of breath Onset (ago): day(s) 1 Location: chest Pain Consistency: + other (episode ) Exacerbated By: + movement Associated symptoms: + shortness of breath and + other (anemia ) The patient is a 78 year old male who presents to the ED with complaints of an episode of shortness of breath that began 1 day ago. The patient states that he gets short of breath very quickly when moving. The patient states that he started noticing his shallow breaths yesterday night. The patient states that he was seen a week ago at the ED for shortness of breath. He states that Dr. Moya, Cardiology, realized he had a blockage and scheduled him for a cardiac catheterization 4 days from now. The patient states that he has anemia. The patient states that he has a history of atrial fibrillation. The patients chart review showed that the patient was admitted by Doctor Bean in the beginning of the month and his stress test showed abnormalities. Home Medications Home Medications Medication Instructions Recorded Confirmed Type Prilosec OTC 20 mg PO QAM 12/30/17 11/17/18 History atorvastatin 80 mg PO HS 12/30/17 11/17/18 History citalopram [Celexa] 20 mg PO HS 12/30/17 11/17/18 History melatonin 3 mg PO HS PRN 12/30/17 11/17/18 History dutasteride [Avodart] 0.5 mg PO HS 02/28/18 11/17/18 History aspirin [Aspir-81] 81 mg PO QAM 04/23/18 11/17/18 History diphenhydramine HCl [Benadryl] 25 mg PO Q4 PRN 04/23/18 11/17/18 History tolterodine 2 mg PO BID 04/23/18 11/17/18 History diltiazem HCl 120 mg PO QAM #30 cap 11/13/18 11/17/18 Rx ferrous sulfate 325 mg PO BID #60 tab 11/13/18 11/17/18 Rx isosorbide mononitrate 30 mg PO QAM #30 tab 11/13/18 11/17/18 Rx metoprolol tartrate 100 mg PO BID #60 tab 11/13/18 11/17/18 Rx nitroglycerin 0.4 mg SUBLINGUAL Q5M PRN #1 btl 11/13/18 11/17/18 Rx cyanocobalamin (vitamin B-12) 1,000 mcg PO PM 11/17/18 11/17/18 History lorazepam 1 mg PO BID 11/17/18 11/17/18 History Allergies Allergy/AdvReac Type Severity Reaction Status Date / Time No Known Allergies Allergy Unknown Verified 11/17/18 21:20 Past Med/Surg History Medical History Acute blood loss anemia 2/2 hematuria, had 2 units PRBCs during admission 02/28-03/03 Gross hematuria CAD (coronary artery disease), [place] coronary artery Paroxysmal atrial fibrillation (Chronic) Holding Xarelto due to hematuria currently. Did have cardioversion 2-3yrs ago. Elevated troponin (Resolved) Per discharge summary 01/09/18: "Likely because of EDUARDA , no ischemic concerns" Essential hypertension (Chronic) Depression (Chronic) Anxiety (Chronic) Obstructive uropathy (Acute) Caused EDUARDA, admitted [facility] 12/2017, discharged with Bernstein and then self- cathing. Caused injury self-cathing and was readmitted for blood loss. Acute kidney injury (Acute) Admitted [facility] 01/05-01/09 for obstruction uropathy/EDUARDA. Readmitted 02/28-03/03 for hematuria/acute blood loss anemia. GERD (gastroesophageal reflux disease) (Chronic) History of anesthesia reaction CONVULSIONS POST OP QUICK COMING AWAKE FROM CABG SURG 20 YRS AGO. 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 20 YRS AGO-[facility] [place] H/O colonoscopy History of cardiac cath NO STENTS-20 YRS AGO History of cardioversion 2-3 YRS AGO [facility] Family History Brother Family history of esophageal cancer Other No pertinent family history Social History (Reviewed 11/17/18 @ 21:25 by Andreea Stephenson Preferred Language: Maltese Communication Ability: Effective Visual Impairment: No Limitations Cash Applications Coordinator Required: No Beliefs That Will Affect Care: None marital status: Single Current Living Situation: Alone Current Living Situation Comment: lives with son Feels Safe at Home: Yes Smoking Status: Never smoker Second Hand Exposure: No ; Hx Alcohol Use: No Hx Substance Use: No Review of Systems See HPI for pertinent positives & negatives. and A total of 10 systems reviewed and were otherwise negative Physical Exam Vital Signs Vital Signs - 24 hr 11/17/18 20:49 11/17/18 21:03 11/17/18 21:07 Temperature 36.5 C Temperature Source Oral Sepsis Recent Fever Within 48 Hours No Sepsis Action Taken by Nursing No Action Required Pulse Rate 67 62 Pulse Rate [Finger] Pulse Rate from SpO2 Sensor 64 Respiratory Rate 16 33 H Respiratory Effort / Characteristics Non-Labored Spontaneous Spontaneous Accessory Muscle Use Labored Respiratory Depth Normal Shallow Respiratory Pattern Regular Regular Blood Pressure 135/63 130/72 Blood Pressure [Right Arm] Blood Pressure Mean 87 91 Blood Pressure Mean [Right Arm] Blood Pressure Position Sitting Pulse Oximetry 92 87 L 91 Oxygen Delivery Method Room Air Room Air Nasal Cannula Oxygen Flow Rate 4 11/17/18 21:09 11/17/18 21:10 11/17/18 21:20 Temperature Temperature Source Sepsis Recent Fever Within 48 Hours Sepsis Action Taken by Nursing Pulse Rate 60 63 61 Pulse Rate [Finger] Pulse Rate from SpO2 Sensor 62 67 62 Respiratory Rate 18 22 13 Respiratory Effort / Characteristics Respiratory Depth Respiratory Pattern Blood Pressure Blood Pressure [Right Arm] Blood Pressure Mean Blood Pressure Mean [Right Arm] Blood Pressure Position Pulse Oximetry 97 94 97 Oxygen Delivery Method Nasal Cannula Nasal Cannula Nasal Cannula Oxygen Flow Rate 4 4 4 11/17/18 21:30 11/17/18 21:31 11/17/18 22:01 Temperature Temperature Source Sepsis Recent Fever Within 48 Hours Sepsis Action Taken by Nursing Pulse Rate 63 61 68 Pulse Rate [Finger] Pulse Rate from SpO2 Sensor 63 59 L 64 Respiratory Rate 21 37 H 19 Respiratory Effort / Characteristics Respiratory Depth Respiratory Pattern Blood Pressure 131/71 139/78 Blood Pressure [Right Arm] Blood Pressure Mean 91 98 Blood Pressure Mean [Right Arm] Blood Pressure Position Pulse Oximetry 95 96 94 Oxygen Delivery Method Nasal Cannula Nasal Cannula Nasal Cannula Oxygen Flow Rate 4 4 4 11/17/18 22:02 11/17/18 22:31 11/17/18 23:01 Temperature Temperature Source Sepsis Recent Fever Within 48 Hours Sepsis Action Taken by Nursing Pulse Rate 67 71 Pulse Rate [Finger] 70 Pulse Rate from SpO2 Sensor 67 68 Respiratory Rate 12 24 26 H Respiratory Effort / Characteristics Respiratory Depth Respiratory Pattern Blood Pressure 141/72 H 131/64 Blood Pressure [Right Arm] 139/78 Blood Pressure Mean 95 86 Blood Pressure Mean [Right Arm] 98 Blood Pressure Position Pulse Oximetry 96 96 96 Oxygen Delivery Method Nasal Cannula Nasal Cannula Nasal Cannula Oxygen Flow Rate 4 4 4 GENERAL: Patient is awake and alert. He is somewhat anxious appearing but appears to be overall comfortable. EYES: The conjunctivae are clear. The pupils are round and reactive. EARS, NOSE, MOUTH AND THROAT: The nose is without any evidence of any deformity. Mucous membranes are moist tongue is midline NECK: The neck is nontender and supple. RESPIRATORY: Shallow respirations were noted. There were rales at both bases. CARDIOVASCULAR: Irregular rhythm with normal rate was noted. There is no definite murmur noted to auscultation. GASTROINTESTINAL: The abdomen is soft. Bowel sounds are present in all quadrants. Abdomen is nontender MUSCULOSKELETAL/EXTREMITIES: There is no evidence of gross deformity full range of motion is noted in the hips and shoulders SKIN: There is no obvious evidence of any rash. Skin was warm and dry. There was trace pedal edema bilaterally. NEUROLOGIC: Patient is awake alert and oriented x3. Course 2103: Past medical records reviewed. The patient was evaluated in room A3. A complete history and physical exam was performed. 2220: I reevaluated the patient at this time and he verbalized that he is feeling better. I discussed the test results and treatment plan with the patient. He verbally agreed and understood. 2310: I discussed the patients case with Dr. Barreto, [facility] Hospitalist. He agreed to evaluate the patient for further management. Administered Medications Discontinued Medications Aspirin (Aspirin) 324 mg PO NOW STA Stop: 11/17/18 23:08 Last Admin: 11/17/18 23:32 Dose: 324 mg Documented by: [id number] Furosemide (Lasix) Confirm Administered Dose 40 mg IV .STPlanitax-MED ONE Stop: 11/17/18 23:28 Last Admin: 11/17/18 23:32 Dose: Not Given Documented by: [id number] Furosemide 20 mg/ Syringe 2 mls @ 4 mls/min IV ONE ONE Stop: 11/17/18 23:08 Last Admin: 11/17/18 23:32 Dose: 4 mls/min Documented by: [id number] Medical Decision Making Differential Diagnosis Differential diagnosis: Etiologies such as infections, reactive airway disease, COPD, pneumonia, pleural effusion, pulmonary edema, ARDS, pneumothorax, CHF, cardiac ischemia, cardiac tamponade, dysrhythmia, anemia, pulmonary embolism, musculoskeletal, gastrointestinal process, as well as others were entertained. Medical Records Attestation: I reviewed the patient's medical records. Home Medications Current Medication List: was personally reviewed by me Laboratory Data Attestation: I reviewed the patient's lab results. Result diagrams: 11/17/18 21:11 11/17/18 21:11 Lab Results 11/17/18 11/17/18 11/17/18 Range/Units 21:11 21:11 21:11 WBC 9.19 (4.8-10.8) K/uL RBC 3.17 L (4.7-6.1) M/uL Hgb 8.7 L (14.0-18.0) g/dL Hct 28.0 L (42-52) % MCV 88.3 (80-100) fL MCH 27.4 (25-34) pg MCHC 31.1 L (32-36) g/dL RDW Std Deviation 61.5 H (36.4-46.3) fL RDW Coeff of Marilynn 21.0 H (11.5-14.5) % Plt Count 338 (130-400) K/uL MPV 9.2 (7.4-10.4) fL Immature Gran % (Auto) 0.3 % Neut % (Auto) 78.9 % Lymph % (Auto) 10.0 % [place] % (Auto) 8.7 % Eos % (Auto) 1.7 % Baso % (Auto) 0.4 % Immature Gran # (Auto) 0.03 H (0.00-0.02) K/uL Neut # (Auto) 7.24 H (1.4-6.5) K/uL Lymph # (Auto) 0.92 L (1.2-3.4) K/uL [place] # (Auto) 0.80 H (0.11-0.59) K/uL Eos # (Auto) 0.16 (0-0.5) K/uL Baso # (Auto) 0.04 (0-0.2) K/uL Absolute Nucleated RBC 0.05 H (0-0) K/uL Nucleated RBC % (auto) 0.5 % Anisocytosis Present Ovalocytes 1+ PT 12.0 (9.0-12.0) Seconds INR 1.2 H (0.9-1.1) APTT 22.8 (21.0-31.0) Seconds PTT Ratio 0.8 Sodium 141 (136-145) mmol/L Potassium 4.8 (3.5-5.1) mmol/L Chloride 109 H (98-107) mmol/L Carbon Dioxide 25 (21-32) mmol/L Anion Gap 7.0 (3-11) BUN 28 H (7-18) mg/dl Creatinine 1.80 H (0.6-1.4) mg/dl Est Cr Clr Drug Dosing Not Reportable Est GFR ( Amer) 41.2 Est GFR (Non-Af Amer) 35.5 BUN/Creatinine Ratio 15.5 (10-20) Glucose 130 H (70-99) mg/dl Calcium 8.0 L (8.5-10.1) mg/dl Total Bilirubin 0.6 (0.2-1) mg/dl AST 37 (15-37) U/L ALT 64 (12-78) U/L Alkaline Phosphatase 132 H (45-117) U/L Troponin I < 0.015 (0-0.045) ng/ml Total Protein 6.8 (6.4-8.2) gm/dl Albumin 3.2 L (3.4-5.0) gm/dl Globulin 3.6 (2.5-4.0) gm/dl Albumin/Globulin Ratio 0.9 (0.9-2) Lipase 109 (73-393) U/L Blood Type Antibody Screen 11/17/18 Range/Units 21:11 WBC (4.8-10.8) K/uL RBC (4.7-6.1) M/uL Hgb (14.0-18.0) g/dL Hct (42-52) % MCV (80-100) fL MCH (25-34) pg MCHC (32-36) g/dL RDW Std Deviation (36.4-46.3) fL RDW Coeff of Marilynn (11.5-14.5) % Plt Count (130-400) K/uL MPV (7.4-10.4) fL Immature Gran % (Auto) % Neut % (Auto) % Lymph % (Auto) % [place] % (Auto) % Eos % (Auto) % Baso % (Auto) % Immature Gran # (Auto) (0.00-0.02) K/uL Neut # (Auto) (1.4-6.5) K/uL Lymph # (Auto) (1.2-3.4) K/uL [place] # (Auto) (0.11-0.59) K/uL Eos # (Auto) (0-0.5) K/uL Baso # (Auto) (0-0.2) K/uL Absolute Nucleated RBC (0-0) K/uL Nucleated RBC % (auto) % Anisocytosis Ovalocytes PT (9.0-12.0) Seconds INR (0.9-1.1) APTT (21.0-31.0) Seconds PTT Ratio Sodium (136-145) mmol/L Potassium (3.5-5.1) mmol/L Chloride (98-107) mmol/L Carbon Dioxide (21-32) mmol/L Anion Gap (3-11) BUN (7-18) mg/dl Creatinine (0.6-1.4) mg/dl Est Cr Clr Drug Dosing Est GFR ( Amer) Est GFR (Non-Af Amer) BUN/Creatinine Ratio (10-20) Glucose (70-99) mg/dl Calcium (8.5-10.1) mg/dl Total Bilirubin (0.2-1) mg/dl AST (15-37) U/L ALT (12-78) U/L Alkaline Phosphatase (45-117) U/L Troponin I (0-0.045) ng/ml Total Protein (6.4-8.2) gm/dl Albumin (3.4-5.0) gm/dl Globulin (2.5-4.0) gm/dl Albumin/Globulin Ratio (0.9-2) Lipase (73-393) U/L Blood Type O Positive Antibody Screen NEGATIVE Imaging Data Radiologist's Impression: Radiology results as stated below per my review and the radiologist's interpretation: XR chest 1V portable CLINICAL HISTORY: Chest Pain pain COMPARISON STUDY: 11/10/2018 FINDINGS: Stable cardiomegaly. Prior median sternotomy. Findings of mild congestive heart failure. Chronic elevation right hemidiaphragm. IMPRESSION: Cardiomegaly. Mild congestive heart failure. The above report was generated using voice recognition software. It may contain grammatical, syntax or spelling errors. Electronically signed by: Guicho Henriquez M.D. 11/17/2018 10:12 PM ECG Data Attestation: I personally reviewed and interpreted this ECG as follows: Indication: SOB/dyspnea Rate (beats per minute): 63 Rhythm: atrial fibrillation Findings: + T-wave inversion (anterior); no PVC Comparison ECG Date: from (11/10/18) Change: no significant change Blood Pressure Blood Pressure Findings: Normal blood pressure Blood Pressure Disposition: did not require urgent referral MDM Narrative The patient is a 78-year-old male who presented to the emergency department for an evaluation of dyspnea on exertion. The patient has a history of atrial fibrillation and also had an abnormal stress test. He is scheduled for a follow-up appointment with cardiac catheterization. The patient started having return and worsening of his symptoms this evening. He presented to the emergency department with family members with exertional dyspnea. The patient was found to have some signs of pulmonary edema and was treated with Lasix. He was also treated with aspirin in the emergency department. He was found to have anemia however his hemoglobin is stable compared to recent laboratory studies. If the patient does have a history of underlying ischemia could be worsened with the pulmonary edema as well as the anemia at this time. For this reason I discussed this case with the on-call [facility] hospitalist group. They have agreed to evaluate the patient in the emergency department for further management disposition. I discussed the patient's laboratory and radiographic studies with him. Impression & Plan Shortness of breath, Anemia, Abnormal stress test Discharge Plan Visit Data Chief Complaint: Shortness of Breath/Dyspnea Stated Complaint: CHEST PAIN,SOB,WEAK ED Provider: Kirt Estrella Discharge Problem: Shortness of breath, Anemia, Abnormal stress test Patient Disposition: Being Evaluated by Hospitalist Forms Stand Alone Forms: My [facility] Prescriptions Prescriptions: No Action atorvastatin 80 mg Tablet 80 mg PO HS RF: 0 melatonin 3 mg Tablet 3 mg PO HS PRN (Reason: Sleep) RF: 0 citalopram [Celexa] 20 mg Tablet 20 mg PO HS RF: 0 Prilosec OTC 20 mg Tablet,Delayed Release (Dr/Ec) 20 mg PO QAM RF: 0 lorazepam 1 mg tablet 1 mg PO BID RF: 0 cyanocobalamin (vitamin B-12) 1,000 mcg capsule 1,000 mcg PO PM RF: 0 dutasteride [Avodart] 0.5 mg capsule 0.5 mg PO HS RF: 0 tolterodine 2 mg Tablet 2 mg PO BID RF: 0 aspirin [Aspir-81] 81 mg Tablet,Delayed Release (Dr/Ec) 81 mg PO QAM RF: 0 diphenhydramine HCl [Benadryl] 25 mg Capsule 25 mg PO Q4 PRN (Reason: Allergic Symptoms) RF: 0 isosorbide mononitrate 30 mg Tablet Extended Release 24 Hr 30 mg PO QAM Qty: 30 RF: 5 diltiazem HCl 120 mg Capsule,Extended Release 24hr 120 mg PO QAM Qty: 30 RF: 5 ferrous sulfate 325 mg (65 mg iron) tablet 325 mg PO BID Qty: 60 RF: 2 nitroglycerin 0.4 mg tablet, sublingual 0.4 mg sublingual Q5M PRN (Reason: chest pain) Qty: 1 RF: 0 metoprolol tartrate 100 mg tablet 100 mg PO BID Qty: 60 RF: 5 Referrals Referrals: Phil Hicks MD [Primary Care Provider] - Discharge Problem: Anemia Qualifiers: Anemia type: unspecified type Qualified Code(s): D64.9 - Anemia, unspecified The scribe's documentation has been prepared under my direction and personally reviewed by me in its entirety. I confirm that the note above accurately reflects all work, treatment, procedures, and medical decision making performed by me.
[2018-11-17 21:26] LABS: Basophils # (auto) 0.04 K/uL (0-0.2); Basophils % (auto) 0.4 %; Eosinophils # (auto) 0.16 K/uL (0-0.5); Eosinophils % (auto) 1.7 %; Hemoglobin 8.7 g/dL (14.0-18.0); Immature Granulocytes # (auto) 0.03 K/uL (0.00-0.02); Immature Granulocytes % (auto) 0.3 %; Lymphocytes # (auto) 0.92 K/uL (1.2-3.4); Mean Corpuscular Hgb Conc 31.1 g/dL (32-36); Mean Corpuscular Volume 88.3 fL (80-100); Mean Platelet Volume 9.2 fL (7.4-10.4); Monocytes % (auto) 8.7 %; Neutrophils # (auto) 7.24 K/uL (1.4-6.5); Neutrophils % (auto) 78.9 %; Nucleated RBC # (auto) 0.05 K/uL (0-0); Nucleated RBC % (auto) 0.5 %; Platelet Count 338 K/uL (130-400); RDW Standard Deviation 61.5 fL (36.4-46.3); Red Blood Count 3.17 M/uL (4.7-6.1); White Blood Count 9.19 K/uL (4.8-10.8)
[2018-11-17 21:43] LABS: Alanine Aminotransferase 64 U/L (12-78); Albumin Level 3.2 gm/dl (3.4-5.0); Aspartate Aminotransferase 37 U/L (15-37); BUN Creatinine Ratio 15.5 (10-20); Blood Urea Nitrogen 28 mg/dl (7-18); Carbon Dioxide 25 mmol/L (21-32); Chloride 109 mmol/L (98-107); Est GFR (African American) 41.2; Est GFR (Non-African American) 35.5; Glucose 130 mg/dl (70-99); Potassium 4.8 mmol/L (3.5-5.1); Sodium 141 mmol/L (136-145)
[2018-11-17 21:48] LABS: Albumin Globulin Ratio 0.9 (0.9-2); Alkaline Phosphatase 132 U/L (45-117); Bilirubin,Total 0.6 mg/dl (0.2-1); Globulin 3.6 gm/dl (2.5-4.0); Total Protein 6.8 gm/dl (6.4-8.2); Troponin I < 0.015 ng/ml (0-0.045)
[2018-11-17 21:52] LABS: INR 1.2 (0.9-1.1); Partial Thromboplastin Ratio 0.8; Partial Thromboplastin Time 22.8 Seconds (21.0-31.0)
[2018-11-17 21:53] LABS: Anisocytosis Present; Ovalocytes 1+
--- NOTE | 2018-11-17 22:13 | XRay Report ---
XR chest 1V portable CLINICAL HISTORY: Chest Pain pain COMPARISON STUDY: 11/10/2018 FINDINGS: Stable cardiomegaly. Prior median sternotomy. Findings of mild congestive heart failure. Ch ronic elevation right hemidiaphragm. IMPRESSION: Cardiomegaly. Mild congestive heart failure. The above report was generated using voice recognition software. It may contain grammatical, syntax or spelling errors. Electronically signed by: Guicho Henriquez M.D. 11/17/2018 10:12 PM
[2018-11-17] MEDS ORDERED: FUROSEMIDE 20 MG in SYRINGE 0 ML IV ONE (23:07)
[2018-11-17] MEDS ORDERED: ASPIRIN CHEW 324 MG PO STA (23:07)
--- NOTE | 2018-11-17 23:21 | History & Physical Report ---
Date of Service November 17, 2018 Assessment & Plan (1) Shortness of breath: 78 y/o M Hx AF, CAD, HTN, HLD, urinary retention, depression/anxiety, anemia. The pt was recently evaluated by cardiology and had a Lexiscan on 11/10 demonstrating reversible anterior and inferior defects. He was scheduled for a follow-up visit to discuss a cardiac catheterization. He was brought to the ER this evening at the behest of his son due to progressive dyspnea, pronounced with exertion. he has a degree of orthopnea and denies CP or a productive cough. Initial labs are notable for anemia which is stable but significant. A CXR was consistent with CHF. He has not previously been admitted for CHF and does not take a daily diuretic. A recent echo did not mention systolic or diastolic CHF and demonstrated an EF of 57%. The RVSP was notably elevated. 1) SOB - due to volume overload - cause may be R heart failure. We will start diuresis with Lasix, daily weights, I/O. Cardiology consult requested - repeat echo to discretion of cardiology. 2) CAD - no evidence of ACS - abnormality on recent echo noted - cardiology may want to obtain a cath while the pt is hospitalized. We will keep him NPO pending cardio evaluation. Continue ASA, statin, imdur. 3) AF - rate is controlled - he is not on anticoagulation due to recurrent hematuria and anemia. 4) HTN/HLD - cont Diltiazem, Imdur, atorvastatin 5) BPH and urinary retention - previously required a catheter - cont Dutasteride 6) Anemia - may be contributing to SOB. Appears stable - will check fecal occult blood and repeat Hb AM - cont Iron supplements. Recent UA did not contain blood. Full code - SCDs Total time for this admit including review of labs, meds, imaging, records - discussion with pt and ER attending - 42 min Present on Admission?: Yes History of Present Illness Chief Complaint: SOB, CP Primary Care Provider: Phil Hicks MD 78 y/o M Hx AF, CAD, HTN, HLD, urinary retention, depression/anxiety, anemia. The pt was recently evaluated by cardiology and had a Lexiscan on 11/10 demonstrating reversible anterior and inferior defects. He was scheduled for a follow-up visit to discuss a cardiac catheterization. He was brought to the ER this evening at the behest of his son due to progressive dyspnea, pronounced with exertion. he has a degree of orthopnea and denies CP or a productive cough. Initial labs are notable for anemia which is stable but significant. A CXR was consistent with CHF. He has not previously been admitted for CHF and does not take a daily diuretic. A recent echo did not mention systolic or diastolic CHF and demonstrated an EF of 57%. The RVSP was notably elevated. PMH: 1) CAD - history of CABG 2) AF 3) HTN 4) HLD 5) Anemia due to hematuria 6) GERD 7) BPH 8) Iron-deficient anemia - recent Hb ~9 at baseline 9) Abnormal nuclear stress 11/10/18 - mid inferior and distal anterior reversible wall motion abnormalities Surgical: CABG - 2V > 20 yrs ago Social: Does not drink or smoke Family: Noncontributory Allergies Allergy/AdvReac Type Severity Reaction Status Date / Time No Known Allergies Allergy Unknown Verified 11/17/18 21:20 Home Medications Home Medications Medication Instructions Recorded Confirmed Type Prilosec OTC 20 mg PO QAM 12/30/17 11/17/18 History atorvastatin 80 mg PO HS 12/30/17 11/17/18 History citalopram [Celexa] 20 mg PO HS 12/30/17 11/17/18 History melatonin 3 mg PO HS PRN 12/30/17 11/17/18 History dutasteride [Avodart] 0.5 mg PO HS 02/28/18 11/17/18 History aspirin [Aspir-81] 81 mg PO QAM 04/23/18 11/17/18 History diphenhydramine HCl [Benadryl] 25 mg PO Q4 PRN 04/23/18 11/17/18 History tolterodine 2 mg PO BID 04/23/18 11/17/18 History diltiazem HCl 120 mg PO QAM #30 cap 11/13/18 11/17/18 Rx ferrous sulfate 325 mg PO BID #60 tab 11/13/18 11/17/18 Rx isosorbide mononitrate 30 mg PO QAM #30 tab 11/13/18 11/17/18 Rx metoprolol tartrate 100 mg PO BID #60 tab 11/13/18 11/17/18 Rx nitroglycerin 0.4 mg SUBLINGUAL Q5M PRN #1 btl 11/13/18 11/17/18 Rx cyanocobalamin (vitamin B-12) 1,000 mcg PO PM 11/17/18 11/17/18 History lorazepam 1 mg PO BID 11/17/18 11/17/18 History Past Med/Surg History Medical History Acute blood loss anemia 2/2 hematuria, had 2 units PRBCs during admission 02/28-03/03 Gross hematuria CAD (coronary artery disease), [place] coronary artery Paroxysmal atrial fibrillation (Chronic) Holding Xarelto due to hematuria currently. Did have cardioversion 2-3yrs ago. Elevated troponin (Resolved) Per discharge summary 01/09/18: "Likely because of EDUARDA , no ischemic concerns" Essential hypertension (Chronic) Depression (Chronic) Anxiety (Chronic) Obstructive uropathy (Acute) Caused EDUARDA, admitted [facility] 12/2017, discharged with Bernstein and then self- cathing. Caused injury self-cathing and was readmitted for blood loss. Acute kidney injury (Acute) Admitted [facility] 01/05-01/09 for obstruction uropathy/EDUARDA. Readmitted 02/28-03/03 for hematuria/acute blood loss anemia. GERD (gastroesophageal reflux disease) (Chronic) History of anesthesia reaction CONVULSIONS POST OP QUICK COMING AWAKE FROM CABG SURG 20 YRS AGO. 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 20 YRS AGO[place] [place]/O colonoscopy History of cardiac cath NO STENTS-20 YRS AGO History of cardioversion 2-3 YRS AGO [facility] Family History Brother Family history of esophageal cancer Other No pertinent family history Social History Preferred Language: Iranian Communication Ability: Effective Visual Impairment: No Limitations Cheesemaker Required: No Beliefs That Will Affect Care: None marital status: Single Current Living Situation: Alone Current Living Situation Comment: lives with son Feels Safe at Home: Yes Smoking Status: Never smoker Second Hand Exposure: No ; Hx Alcohol Use: No Hx Substance Use: No Review of Systems Review of Systems: Gen: Denies fevers, night sweats, rigors, fatigue, malaise, weight loss/gain ENT: Denies congestion, throat pain, hearing loss Eyes: Denies acute visual changes CV: Progressive exertional dyspnea and orthopnea reported Pulmonary: + SOB - no cough/wheezing GI: Denies N/V, diarrhea, constipation Neuro: Denies acute or unilateral weakness, acute gait impairment, headache or acute visual changes Musculoskeletal: Denies joint pain, inflammation Endocrine: Denies polydipsia, polyuria Skin: Denies acute rashes or ulcers Physical Exam Physical Exam: General: Pleasant, overweight, elderly M, AAO x 3, no distress but noticeably dyspneic ENT: No erythema or exudates, no thrush Eyes: MAXINE, EOMI Head and neck: Normocephalic, atraumatic - cannot examine JVD due to habitus Chest/heart: Nontender, S1,2, RRR, no murmurs, no gallops Lungs: crackles are audible, primarily in the R base Abdomen: Nontender, nondistended, BS+ Neuro: AAO x 3, speech is clear, no unilateral weakness or loss of sensation, coordination intact Musculoskeletal: No joint inflammation, muscle tenderness, FROM Skin: No acute rashes or ulcers Extremities: No clubbing, cyanosis - minimal edema Results & Data Vital Signs (Past 12 Hours) Vital Signs Temp Pulse Pulse Resp BP BP Pulse Ox 11/17/18 22:02 70 12 139/78 96 11/17/18 21:31 61 37 H 131/71 96 11/17/18 21:30 63 21 95 11/17/18 21:20 61 13 97 11/17/18 21:10 63 22 94 11/17/18 21:09 60 18 97 11/17/18 21:07 62 33 H 130/72 91 11/17/18 21:03 87 L 11/17/18 20:49 97.7 F 67 16 135/63 92 Diagnostic Findings CXR: CHF EKG: AF, rate of 63, no acute morphological changes from a previous PG Care Time/CCT Total # of Minutes Spent Total Time Spent with Patient: Total time spent is greater than 50% in coordination of care (as documented) at patient's floor/unit and/or counseling patient:
[2018-11-17] MEDS ORDERED: FUROSEMIDE 40 MG/4 ML VIAL IV ONE (23:27)
[2018-11-17] MEDS ORDERED: ONDANSETRON INJ 2 MG/ML 2 ML VIAL IV PRN (23:35)
[2018-11-17] MEDS ORDERED: POLYETHYLENE (MIRALAX) 17 GM PACK PO PRN (23:35)
[2018-11-17] MEDS ORDERED: MAGNESIUM HYDROXIDE SUSP 30 ML UDC PO PRN (23:35)
[2018-11-17] MEDS ORDERED: NITROGLYCERIN SL 0.4 MG/TAB TAB SL PRN (23:35)
[2018-11-17] MEDS ORDERED: ALUMINUM/MAGNESIUM SUSP 30 ML UDC PO PRN (23:35)
[2018-11-17] MEDS ORDERED: ACETAMINOPHEN 325 MG TAB PO PRN (23:35)
[2018-11-17] MEDS ORDERED: MoRPHine SULFATE 2 MG/ML CARP IV PRN (23:35)
[2018-11-18] MEDS ORDERED: NITROGLYCERIN SL 0.4 MG/TAB TAB SL PRN (00:28)
[2018-11-18 06:15] LABS: BUN Creatinine Ratio 16.5 (10-20); Calcium 7.9 mg/dl (8.5-10.1); Creatinine Clr Calc Pharmacy 41.6 ml/min; Est GFR (African American) 42.3; Est GFR (Non-African American) 36.5; Magnesium 2.1 mg/dl (1.8-2.4); Potassium 4.3 mmol/L (3.5-5.1)
[2018-11-18] MEDS: PANTOprazole 40 MG TAB PO SCH (07:53)
[2018-11-18] MEDS: METOPROLOL TARTRATE 100 MG TAB PO SCH ×2 (07:53→20:02)
[2018-11-18] MEDS: FERROUS SULFATE 325 MG TAB PO SCH ×2 (07:54→20:00)
[2018-11-18] MEDS: dilTIAZem HCL 120 MG CAPCR PO SCH (07:54)
[2018-11-18] MEDS: ISOSORBIDE MONO EXTENDED REL 30 MG TABCR PO SCH (07:54)
[2018-11-18] MEDS: TOLTERODINE TARTRATE 2 MG TAB PO SCH ×2 (07:55→19:59)
[2018-11-18] MEDS: ASPIRIN 81 MG ECTAB PO SCH (07:55)
[2018-11-18] MEDS: LORazepam 1 MG TAB PO SCH ×2 (08:58→20:06)
--- NOTE | 2018-11-18 09:50 | Cardiology Consultation ---
Date of Consultation November 18, 2018 Assessment & Plan (1) CAD (coronary artery disease), beaver coronary artery: He has significant dyspnea with exertion and an abnormal myocardial perfusion study suggesting circumflex territory ischemia. He has known nonobstructive CAD in the circumflex territory in 1997 and has not had a cardiac catheterization since then. Continue aspirin 81 mg daily. Recommend coronary angiography. We discussed the risks and benefits in detail. He was made aware that CT surgery is not available at this facility. He would like to undergo the procedure. We also discussed the increased risk of kidney failure given his baseline CKD. Continue beta-kenji and high-intensity statin therapy. (2) S/P CABG x 2: Status post LAD and RCA bypass. No other details available at this time. (3) Abnormal nuclear stress test: Circumflex territory ischemia was suggested. Plan as above. (4) Dyspnea on exertion: He does not appear to be significantly hypervolemic currently but difficult exam. He had been on a diuretic prior to his most recent hospitalization within the past week but was felt to be hypovolemic by the admitting service at that time and had worsening renal insufficiency. Renal function improved with discontinuation of diuretic therapy and some hydration. His BNP is elevated. There may be a component of hypervolemia but his dyspnea with exertion is also quite concerning for ischemic in origin as noted above. Filling pressures can be measured during cardiac catheterization. (5) Aortic regurgitation: Non severe. Follow over time. (6) A-fib: History of paroxysmal atrial fibrillation but now appears to be persistent. Not likely the cause of his symptoms as his breathing actually worsened while his heart rate improved. He has declined anticoagulation therapy thus far. This was discussed once again given the indication for stroke risk reduction if no active bleeding. He has not noted any active bleeding and his hemoglobin has been rather stable for the past several months, albeit anemic. Continue rate control strategy. (7) Essential hypertension: Blood pressure mostly normotensive now on diltiazem. Continue current regimen. Disposition: Cardiac catheterization today. Remain NPO. Dr. Avila of the primary hospitalist service was notified. Highly complex medical issues. Thank you for allowing me to participate in the care of your patient. Please call for any other questions or concerns. Sincerely, Anival Trinidad M.D. History of Present Illness Reason for Consultation: new CHF Requesting Physician: Dr. Barreto Attending Physician: Nacho Avila DO History of Present Illness Mr. Dhillon is a 78-year-old gentleman with a history significant for CAD status post CABG x2 ( approximately 1999 [place] [facility] [place] paroxysmal atrial fibrillation status post elective cardioversion in approximately 2015 or 2017, hypertension, anemia, CKD, and dyslipidemia. He was recently admitted on 11/10/2018 after taking 3 mg of Ativan and apparently had some degree of mental status change. during the hospitalization he received IV iron transfusion for iron deficient anemia. He was also noted to be in atrial fibrillation with rapid ventricular response. Rate control medications were adjusted. He was found to be in acute on chronic renal insufficiency and diuretic therapy was discontinued by primary service. His creatinine improved and returned towards baseline. Myocardial perfusion study was performed and was abnormal, specifically in the circumflex territory. Cardiac catheterization was recommended but he declined. He went home on isosorbide mononitrate, metoprolol tartrate, and diltiazem as part of his medical therapy. He was admitted on 11/17/2018. When asked why he came back, he stated because he was stupid. He states that he would like to undergo cardiac catheterization and be done with it. He states that when he went home his breathing was still poor, especially with exertion but it improved for a day or so before worsening once again. It got to the point where he was more short of breath at any time, and was unable to take a deep breath while laying flat in bed. He denies chest discomfort, syncope, near-syncope, palpitations, edema, melena, hematochezia, hematuria, or other bleeding. He states that he has been maintaining a low-sodium diet and believes that he actually lost weight since last admission. He opted to be discharged without anticoagulation therapy. There has not been identified source of bleeding but his hemoglobin has been low down to 7.4 since January of 2018. It was briefly elevated [id number] but otherwise, his hemoglobin has been between 7 and 9. He was given Lasix 20 mg IV x1 in the ER for concern of new onset CHF. He has had the following studies/procedures: 1. cardiac catheter[place] 11/06/1997 [place] [facility] [place]: Proximal LAD 100%. Distal RCA 60%. Mid circumflex 30-40%. 2. CABG x2 1997 [facility] [place]: LAD and RCA reportedly bypassed. 3. DC cardioversion in : [facility] [place], operated by [facility]. Elective. Done for atrial fibrillation. 4. Echo 11/10/2018 normal LV systolic function. EF 55-60%. Severe left atrial dilation. mild right atrial dilation. Moderate AI. Mild to moderate MR. RVSP 30-40. 5 .Nuclear stress 11/13/2018: Moderate sized area of base to mid inferolateral ischemia as well as a small area of distal anterolateral ischemia. EF 57%. Normal wall motion. Review of systems: As above. Review of systems otherwise negative/unremarkable. Family history: Mother at the age of 73. Father from accident. No known premature CAD. Social history: He denies tobacco or alcohol abuse. 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 He had 7 children. He is unaccompanied. Allergies Allergy/AdvReac Type Severity Reaction Status Date / Time No Known Allergies Allergy Unknown Verified 11/17/18 21:20 Home Medications Home Medications Medication Instructions Recorded Confirmed Type Prilosec OTC 20 mg PO QAM 12/30/17 11/17/18 History atorvastatin 80 mg PO HS 12/30/17 11/17/18 History citalopram [Celexa] 20 mg PO HS 12/30/17 11/17/18 History melatonin 3 mg PO HS PRN 12/30/17 11/17/18 History dutasteride [Avodart] 0.5 mg PO HS 02/28/18 11/17/18 History aspirin [Aspir-81] 81 mg PO QAM 04/23/18 11/17/18 History diphenhydramine HCl [Benadryl] 25 mg PO Q4 PRN 04/23/18 11/17/18 History tolterodine 2 mg PO BID 04/23/18 11/17/18 History diltiazem HCl 120 mg PO QAM #30 cap 11/13/18 11/17/18 Rx ferrous sulfate 325 mg PO BID #60 tab 11/13/18 11/17/18 Rx isosorbide mononitrate 30 mg PO QAM #30 tab 11/13/18 11/17/18 Rx metoprolol tartrate 100 mg PO BID #60 tab 11/13/18 11/17/18 Rx nitroglycerin 0.4 mg SUBLINGUAL Q5M PRN #1 btl 11/13/18 11/17/18 Rx cyanocobalamin (vitamin B-12) 1,000 mcg PO PM 11/17/18 11/17/18 History lorazepam 1 mg PO BID 11/17/18 11/17/18 History Patient History Medical History Acute blood loss anemia 2/2 hematuria, had 2 units PRBCs during admission 02/28-03/03 Gross hematuria CAD (coronary artery disease), beaver coronary artery Paroxysmal atrial fibrillation (Chronic) Holding Xarelto due to hematuria currently. Did have cardioversion 2-3yrs ago. Elevated troponin (Resolved) Per discharge summary 01/09/18: "Likely because of EDUARDA , no ischemic concerns" Essential hypertension (Chronic) Depression (Chronic) Anxiety (Chronic) Obstructive uropathy (Acute) Caused EDUARDA, admitted [facility] 12/2017, discharged with Bernstein and then self- cathing. Caused injury self-cathing and was readmitted for blood loss. Acute kidney injury (Acute) Admitted [facility] 01/05-01/09 for obstruction uropathy/EDUARDA. Readmitted 02/28-03/03 for hematuria/acute blood loss anemia. GERD (gastroesophageal reflux disease) (Chronic) History of anesthesia reaction CONVULSIONS POST OP QUICK COMING AWAKE FROM CABG SURG 20 YRS AGO. 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 20 YRS AGO[place] [place] colonoscopy History of cardiac cath NO STENTS-20 YRS AGO History of cardioversion 2-3 YRS AGO [facility] Family History Brother Family history of esophageal cancer Other No pertinent family history Social History Preferred Language: Faroese Communication Ability: Effective Visual Impairment: No Limitations Dixonac Operator Required: No Beliefs That Will Affect Care: None marital status: Single Current Living Situation: Alone Current Living Situation Comment: lives with son Other Information That Helps Us Care for You: No Feels Safe at Home: Yes Safety Concerns: Feels Safe At This Time Smoking Status: Never smoker Second Hand Exposure: No ; Hx Alcohol Use: No Hx Substance Use: No Physical Exam Physical Exam: Gen.: No acute distress. Alert and oriented. HEENT: Anicteric sclera. Neck: Thick neck. Normal carotid upstrokes bilaterally. Cardiac: PMI was not palpable. No ventricular heave. Irregularly irregular. Normal S1-S2. No murmurs, rubs, or gallops. Pulmonary: Clear to auscultation bilaterally without wheezes, rales, or rhonchi. Abdomen: Soft, nontender, nondistended, with normoactive bowel sounds. No bruits noted. Extremities: 2+ radial pulses bilaterally. 2+ posterior tibialis pulses bilaterally. Trace bilateral lower extremity edema. No cyanosis. Psychiatric: Affect appears appropriate. Results & Data Vital Signs (Past 12 Hours) Vital Signs Temp Pulse Pulse Resp BP BP BP 11/18/18 08:07 11/18/18 06:46 36.4 C L 61 20 118/70 11/18/18 03:51 36.4 C L 59 L 22 113/53 L 11/18/18 00:17 70 24 154/73 H 11/18/18 00:15 36.4 C L 68 22 127/69 11/17/18 23:01 71 26 H 131/64 11/17/18 22:31 67 24 141/72 H 11/17/18 22:02 70 12 139/78 11/17/18 22:01 68 19 139/78 Pulse Ox 11/18/18 08:07 94 11/18/18 06:46 94 11/18/18 03:51 96 11/18/18 00:17 96 11/18/18 00:15 95 11/17/18 23:01 96 11/17/18 22:31 96 11/17/18 22:02 96 11/17/18 22:01 94 Intake & Output 11/16/18 11/17/18 11/18/18 11/19/18 06:59 06:59 06:59 06:59 Intake Total 300 / 300 Output Total 675 / 675 Balance -375 / -375 Weight 106.5 kg Laboratory Results Laboratory Results - last 24 hr 11/17/18 11/17/18 11/17/18 21:11 21:11 21:11 WBC 9.19 RBC 3.17 L Hgb 8.7 L Hct 28.0 L MCV 88.3 MCH 27.4 MCHC 31.1 L RDW Std Deviation 61.5 H RDW Coeff of Marilynn 21.0 H Plt Count 338 MPV 9.2 Immature Gran % (Auto) 0.3 Neut % (Auto) 78.9 Lymph % (Auto) 10.0 [place] % (Auto) 8.7 Eos % (Auto) 1.7 Baso % (Auto) 0.4 Immature Gran # (Auto) 0.03 H Neut # (Auto) 7.24 H Lymph # (Auto) 0.92 L [place] # (Auto) 0.80 H Eos # (Auto) 0.16 Baso # (Auto) 0.04 Absolute Nucleated RBC 0.05 H Nucleated RBC % (auto) 0.5 Anisocytosis Present Ovalocytes 1+ PT 12.0 INR 1.2 H APTT 22.8 PTT Ratio 0.8 Sodium 141 Potassium 4.8 Chloride 109 H Carbon Dioxide 25 Anion Gap 7.0 BUN 28 H Creatinine 1.80 H Est Cr Clr Drug Dosing Not Reportable Est GFR ( Amer) 41.2 Est GFR (Non-Af Amer) 35.5 BUN/Creatinine Ratio 15.5 Glucose 130 H Calcium 8.0 L Magnesium Total Bilirubin 0.6 AST 37 ALT 64 Alkaline Phosphatase 132 H Troponin I < 0.015 Total Protein 6.8 Albumin 3.2 L Globulin 3.6 Albumin/Globulin Ratio 0.9 Lipase 109 Blood Type Antibody Screen 11/17/18 11/18/18 11/18/18 21:11 05:03 05:03 WBC RBC Hgb 8.7 L Hct MCV MCH MCHC RDW Std Deviation RDW Coeff of Marilynn Plt Count MPV Immature Gran % (Auto) Neut % (Auto) Lymph % (Auto) [place] % (Auto) Eos % (Auto) Baso % (Auto) Immature Gran # (Auto) Neut # (Auto) Lymph # (Auto) [place] # (Auto) Eos # (Auto) Baso # (Auto) Absolute Nucleated RBC Nucleated RBC % (auto) Anisocytosis Ovalocytes PT INR APTT PTT Ratio Sodium 143 Potassium 4.3 Chloride 110 H Carbon Dioxide 25 Anion Gap 8.0 BUN 29 H Creatinine 1.76 H Est Cr Clr Drug Dosing 41.6 Est GFR ( Amer) 42.3 Est GFR (Non-Af Amer) 36.5 BUN/Creatinine Ratio 16.5 Glucose 116 H Calcium 7.9 L Magnesium 2.1 Total Bilirubin AST ALT Alkaline Phosphatase Troponin I Total Protein Albumin Globulin Albumin/Globulin Ratio Lipase Blood Type O Positive Antibody Screen NEGATIVE Diagnostic Findings Telemetry personally reviewed. Atrial fibrillation with adequate rate control. Echocardiogram, nuclear stress reports reviewed as noted above in the HPI section. ECG personally reviewed. ECG 11/17/2018: Atrial fibrillation 63 bpm. Medications Administered Current Inpatient Medications Acetaminophen (Tylenol) 650 mg PO Q4H PRN PRN Reason: Pain or Fever Stop: 12/17/18 23:34 Al Hydrox/Mg Hydrox/Simethicone (Maalox) 15 ml PO Q4H PRN PRN Reason: Dyspepsia Stop: 12/17/18 23:34 Aspirin (Ecotrin Ectab) 81 mg PO QAM [facility] Stop: 12/18/18 08:59 Last Admin: 11/18/18 07:55 Dose: 81 mg Documented by: Atorvastatin Calcium (Lipitor) 80 mg PO HS [facility] Stop: 12/18/18 20:59 Citalopram Hydrobromide (Celexa) 20 mg PO HS [facility] Stop: 12/18/18 20:59 Cyanocobalamin (Vitamin B-12) 1,000 mcg PO PM [facility] Stop: 12/18/18 20:59 Diltiazem HCl (Cardizem Cd) 120 mg PO QAM [facility] Stop: 12/18/18 08:59 Last Admin: 11/18/18 07:54 Dose: 120 mg Documented by: Diphenhydramine HCl (Benadryl Capsule) 25 mg PO Q4 PRN PRN Reason: Allergic Symptoms Stop: 12/18/18 00:27 Ferrous Sulfate (Feosol) 325 mg PO BID [facility] Stop: 12/18/18 08:59 Last Admin: 11/18/18 07:54 Dose: 325 mg Documented by: Isosorbide Mononitrate (Imdur Extended Rel) 30 mg PO QAM [facility] Stop: 12/18/18 08:59 Last Admin: 11/18/18 07:54 Dose: 30 mg Documented by: Lorazepam (Ativan) 1 mg PO BID [facility] Stop: 12/18/18 08:59 Last Admin: 11/18/18 08:58 Dose: 1 mg Documented by: Magnesium Hydroxide (Milk Of Magnesia) 30 ml PO Q12H PRN PRN Reason: Constipation Stop: 12/17/18 23:34 Metoprolol Tartrate (Lopressor) 100 mg PO BID [facility] Stop: 12/18/18 08:59 Last Admin: 11/18/18 07:53 Dose: 100 mg Documented by: Miscellaneous (Order Awaiting Action) 1 ea N/A DAILY [facility] Stop: 12/18/18 08:59 Last Admin: 11/18/18 07:55 Dose: Not Given Documented by: Morphine Sulfate (Morphine Sulfate) 2 mg IV Q30M PRN PRN Reason: Chest Pain Stop: 12/01/18 23:34 Nitroglycerin (Nitrostat) 0.4 mg SL UD PRN PRN Reason: Chest Pain Stop: 12/17/18 23:34 Ondansetron HCl (Zofran) 4 mg IV Q6H PRN PRN Reason: Nausea Stop: 12/17/18 23:34 Pantoprazole Sodium (Protonix) 40 mg PO QAM [facility] Stop: 12/18/18 08:59 Last Admin: 11/18/18 07:53 Dose: 40 mg Documented by: Polyethylene Glycol (Miralax Powder Packet) 17 gm PO DAILY PRN PRN Reason: Constipation Stop: 12/17/18 23:34 Tolterodine Tartrate (Detrol) 2 mg PO BID [facility] Stop: 12/18/18 08:59 Last Admin: 11/18/18 07:55 Dose: 2 mg Documented by: PG Care Time/CCT Total # of Minutes Spent Total Time Spent with Patient: Total time spent is greater than 50% in coordination of care (as documented) at patient's floor/unit and/or counseling patient: (1) CAD (coronary artery disease), beaver coronary artery [place] vs. transplanted heart: beaver heart Associated angina: without angina Qualified Code(s): I25.10 - Atherosclerotic heart disease of beaver coronary artery without angina pectoris (2) Aortic regurgitation Cardiac valve disease etiology: etiology unspecified Qualified Code(s): I35.1 - Nonrheumatic aortic (valve) insufficiency
[2018-11-18] MEDS ORDERED: HEPARIN (PORCINE) 1000 UNIT/ML 10 ML (CATH LAB USE ONLY) ONE (11:50)
[2018-11-18] MEDS ORDERED: MIDAZOLAM HCL 1 MG/ML 2ML VIAL ONE (11:50)
[2018-11-18] MEDS ORDERED: NITROGLYCERIN/D5W 100MCG/ML 20ML SYR ONE (11:50)
[2018-11-18] MEDS ORDERED: fentaNYL citrate 100 MCG/2 ML VIAL ONE (11:50)
[2018-11-18] MEDS ORDERED: NiCARDipine HCL INJ 2.5 MG/ML 10 ML AMP ONE (11:50)
--- NOTE | 2018-11-18 12:14 | Pre Anesthesia Assessment ---
Date of Service November 18, 2018 Pre Sedation Assessment Vital Signs Temp Pulse Pulse Resp BP BP BP 11/18/18 11:20 36.8 C 65 16 108/59 L 11/18/18 08:07 11/18/18 06:46 36.4 C L 61 20 118/70 11/18/18 03:51 36.4 C L 59 L 22 113/53 L 11/18/18 00:17 70 24 154/73 H 11/18/18 00:15 36.4 C L 68 22 127/69 11/17/18 23:01 71 26 H 131/64 11/17/18 22:31 67 24 141/72 H 11/17/18 22:02 70 12 139/78 11/17/18 22:01 68 19 139/78 11/17/18 21:31 61 37 H 131/71 11/17/18 21:30 63 21 11/17/18 21:20 61 13 11/17/18 21:10 63 22 11/17/18 21:09 60 18 11/17/18 21:07 62 33 H 130/72 11/17/18 21:03 11/17/18 20:49 36.5 C 67 16 135/63 Pulse Ox 11/18/18 11:20 93 11/18/18 08:07 94 11/18/18 06:46 94 11/18/18 03:51 96 11/18/18 00:17 96 11/18/18 00:15 95 11/17/18 23:01 96 11/17/18 22:31 96 11/17/18 22:02 96 11/17/18 22:01 94 11/17/18 21:31 96 11/17/18 21:30 95 11/17/18 21:20 97 11/17/18 21:10 94 11/17/18 21:09 97 11/17/18 21:07 91 11/17/18 21:03 87 L 11/17/18 20:49 92 Cardiovascular + irregularly irregular Respiratory normal respiratory effort, lungs clear to auscultation Pre-Sedation Airway Assessment Smoking Status: Never smoker Mallampati Class: III ASA: ASA3 NPO Status Date of Last Intake of Fluids: 11/18/18 Time of Last Intake of Fluids: 06:00 Date of Last Intake of Solid Food: 11/18/18 Time of Last Intake of Solid Foods: 06:00 Procedure Planning Contraindications for Sedation: none Current Medications Reviewed: Yes Notes The planned sedation has been discussed with the patient. Informed Consent was obtained. I have identified the patient, determined the appropriateness of sedation and have assessed the patient immediately prior to the procedure. All medicine(s) and interventions are by my order.
--- NOTE | 2018-11-18 13:40 | Post Operative Brief Note ---
Cardiology Brief Post Op Date of Surgery November 18, 2018 Pre & Post Diagnosis Operation Date: 11/18/18 11:00 <No data on this case meets the specified criteria> Procedure 1. Coronary angiography of [place] coronary arteries 2. Angiography of bypass grafts 3. Angiography of femoral artery 4. Left heart catheterization Regional Sales Leader Meet Trinidad MD Loss Prevention Associate Robb Cazares Estimated Blood Loss 30 Findings See Below Patent CHOUDHARY to LAD Patent MITUL to RCA Prox LAD 100% mid/distal Circumflex 100% mid RCA 100% Elevated LVEDP No aortic stenosis Complications none Disposition Disposition: PCU
[2018-11-18] MEDS ORDERED: FUROSEMIDE 40 MG/4 ML VIAL IV STA (13:44)
[2018-11-18 13:55] LABS: iSTAT Arterial Blood Gas HCO3 21 meg/L (19-24); iSTAT Arterial Blood Gas pCO2 37 mmHg (35-46); iSTAT Arterial Blood Gas pH 7.37 (7.35-7.45); iSTAT Carbon Dioxide 22 mEq/l (24-31)
[2018-11-18] MEDS ORDERED: FUROSEMIDE 40 MG/4 ML VIAL IV ONE (14:11)
--- NOTE | 2018-11-18 17:53 | Family Medicine Progress Note ---
Date of Service November 18, 2018 Assessment & Plan (1) Dyspnea on exertion: 78y/o M with h/o AF, CAD, HTN, HLD, presented to hospital on 11/10 with exertional dyspnea, lexiscan at that time demonstrated anterior/inferior defects. At that time elected to go home and follow-up for cardiac cathet erization. Re-presented to hospital on 11/17, for worsening dyspnea now at rest. Underwent cardiac catheterization demonstrating diffuse disease with patent grafts to LAD & RCA. 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 -Continue aspirin 81 mg daily -Continue beta-kenji and high-intensity statin therapy. s/p CABG (2 vessel): -status post LAD and RCA bypass (1997) -CHOUDHARY to LAD -MITUL to RCA Abnormal nuclear stress test: -Circumflex territory ischemia was suggested. Plan as above. Aortic Regurgitation: -Non severe. Follow over time. Atrial Fibrillation: -appears to be persistent. -Continue rate control strategy. Code Status: Full code DVT ppx: SCDs Dispo: observe on med/surg floor with telemetry (2) CAD (coronary artery disease), [place] coronary artery: (3) S/P CABG x 2: (4) Abnormal nuclear stress test: (5) Aortic regurgitation: (6) A-fib: (7) Essential hypertension: Supervising Physician Co-Signing Physician Notes I personally examined the patient and verified all concepcion points of history and exam, discussed case, and agree with decision making with Dr Ricardo. Breathing better after Lasix. Case discussed with cardiology, input greatly appreciated. In discussion of diet with patient and daughter, it is clear the patient eats a lot of sodium and does so indiscriminately. That said he quickly understands the relationship between sodium and fluid retention, and the relationship between fluid retention and the inability to breathe, and seems to be very willing to change lifestyle habits as far as it relates to sodium. Vitals noted, in general he is awake and alert pleasant no distress. He is laying flat post-cath. He is on 4 L nasal cannula without any significant dyspnea. Due to having to lay flat lung exam is very difficult, but his upper lung vance anteriorly and laterally seem to be clear bibasilar seems to be somewhat diminished. Acute HFpEF -seems to be improving with Lasix. Definitely seem lots of room for improvement with lifestyle as it relates to sodium intake. Started initial education in this regard. Continue diuresis. Hypoxiaappears to relate pulmonary edemawean oxygen as possible. Discussed with patient and daughter that it is quite possible he may need some home oxygen for at least the time being. DVT prophylaxiscompression (pharmacologic not given due to his anemia related to recent hematuria) Subjective Patient is consistently feeling short of breath, that is somewhat postional in nature, but exacerbated by exertion. Does not regularly follow a cardiac diet, typically consuming foods that are high in sodium daily. Lately has required increasing amount of O2 support for symptomatic resolution of shortness of breath, feels like his symptoms are more manageable when he is laying on his side, or at rest. Went for cardiac catheterization today; now feels like he is doing better, following initial dose of IV lasix. Review of Systems Constitutional: no fever, no chills and no sweats Eyes: no diplopia and no loss of peripheral vision Respiratory: + dyspnea; no cough and no hemoptysis Cardiovascular: + dyspnea, + orthopnea and + palpitations; no chest pain and no edema Gastrointestinal: no heartburn, no nausea, no vomiting and no change in bowel habits Physical Exam Constitutional: well nourished, cooperative and + overweight Respiratory: + labored breathing, + tachypneic and + nasal flaring Auscultation: + diminished lung sounds (lower lobes b/l) and + crackles; no rales and no wheezes Cardiovascular: Rate/Rhythm: regular rate Heart Sounds: normal S1 and normal S2; no gallop, no murmur and no cardiac rub Extremities: no pedal edema Gastrointestinal (Abdomen): Percussion/Palpation: abdomen soft; abdomen nontender, no guarding and no hepatosplenomegaly Results & Data Vital Signs (Past 12 Hours) Vital Signs Temp Pulse Pulse Resp BP BP Pulse Ox 11/18/18 16:29 64 18 128/58 L 95 11/18/18 15:57 36.9 C 71 18 141/62 H 98 08/19/19 15:28 68 18 139/64 08/19/19 14:59 71 20 150/62 H 100 11/18/18 14:32 65 18 134/72 99 11/18/18 14:13 67 22 132/70 99 11/18/18 14:05 60 20 129/68 99 11/18/18 13:50 61 22 149/65 H 99 11/18/18 13:45 69 34 H 100 11/18/18 13:05 78 28 H 99 11/18/18 11:20 36.8 C 65 16 108/59 L 93 11/18/18 08:07 94 11/18/18 06:46 36.4 C L 61 20 118/70 94 Laboratory Results 11/18/18 11/18/18 11/18/18 Range/Units 12:33 05:03 05:03 WBC (4.8-10.8) K/uL RBC (4.7-6.1) M/uL Hgb 8.7 L (14.0-18.0) g/dL Hct (42-52) % MCV (80-100) fL MCH (25-34) pg MCHC (32-36) g/dL RDW Std Deviation (36.4-46.3) fL RDW Coeff of Marilynn (11.5-14.5) % Plt Count (130-400) K/uL MPV (7.4-10.4) fL Immature Gran % (Auto) % Neut % (Auto) % Lymph % (Auto) % [place] % (Auto) % Eos % (Auto) % Baso % (Auto) % Immature Gran # (Auto) (0.00-0.02) K/uL Neut # (Auto) (1.4-6.5) K/uL Lymph # (Auto) (1.2-3.4) K/uL [place] # (Auto) (0.11-0.59) K/uL Eos # (Auto) (0-0.5) K/uL Baso # (Auto) (0-0.2) K/uL Absolute Nucleated RBC (0-0) K/uL Nucleated RBC % (auto) % Anisocytosis Ovalocytes PT (9.0-12.0) Seconds INR (0.9-1.1) APTT (21.0-31.0) Seconds PTT Ratio POC pH 7.37 (7.35-7.45) POC pCO2 37 (35-46) mmHg POC pO2 84 (80-95) mmHg POC HCO3 21 (19-24) izabel/L POC Total CO2 22 L (24-31) mEq/l POC Base Excess -4.0 (-9-1.8) izabel/L POC ABG O2 Sat 96.0 H (90-95) % Sodium 143 (136-145) mmol/L Potassium 4.3 (3.5-5.1) mmol/L Chloride 110 H (98-107) mmol/L Carbon Dioxide 25 (21-32) mmol/L Anion Gap 8.0 (3-11) BUN 29 H (7-18) mg/dl Creatinine 1.76 H (0.6-1.4) mg/dl Est Cr Clr Drug Dosing 41.6 Est GFR ( Amer) 42.3 Est GFR (Non-Af Amer) 36.5 BUN/Creatinine Ratio 16.5 (10-20) Glucose 116 H (70-99) mg/dl Calcium 7.9 L (8.5-10.1) mg/dl Magnesium 2.1 (1.8-2.4) mg/dl Total Bilirubin (0.2-1) mg/dl AST (15-37) U/L ALT (12-78) U/L Alkaline Phosphatase (45-117) U/L Troponin I (0-0.045) ng/ml Total Protein (6.4-8.2) gm/dl Albumin (3.4-5.0) gm/dl Globulin (2.5-4.0) gm/dl Albumin/Globulin Ratio (0.9-2) Lipase (73-393) U/L Blood Type Antibody Screen 11/17/18 11/17/18 11/17/18 Range/Units 21:11 21:11 21:11 WBC (4.8-10.8) K/uL RBC (4.7-6.1) M/uL Hgb (14.0-18.0) g/dL Hct (42-52) % MCV (80-100) fL MCH (25-34) pg MCHC (32-36) g/dL RDW Std Deviation (36.4-46.3) fL RDW Coeff of Marilynn (11.5-14.5) % Plt Count (130-400) K/uL MPV (7.4-10.4) fL Immature Gran % (Auto) % Neut % (Auto) % Lymph % (Auto) % [place] % (Auto) % Eos % (Auto) % Baso % (Auto) % Immature Gran # (Auto) (0.00-0.02) K/uL Neut # (Auto) (1.4-6.5) K/uL Lymph # (Auto) (1.2-3.4) K/uL [place] # (Auto) (0.11-0.59) K/uL Eos # (Auto) (0-0.5) K/uL Baso # (Auto) (0-0.2) K/uL Absolute Nucleated RBC (0-0) K/uL Nucleated RBC % (auto) % Anisocytosis Ovalocytes PT 12.0 (9.0-12.0) Seconds INR 1.2 H (0.9-1.1) APTT 22.8 (21.0-31.0) Seconds PTT Ratio 0.8 POC pH (7.35-7.45) POC pCO2 (35-46) mmHg POC pO2 (80-95) mmHg POC HCO3 (19-24) izabel/L POC Total CO2 (24-31) mEq/l POC Base Excess (-9-1.8) izabel/L POC ABG O2 Sat (90-95) % Sodium 141 (136-145) mmol/L Potassium 4.8 (3.5-5.1) mmol/L Chloride 109 H (98-107) mmol/L Carbon Dioxide 25 (21-32) mmol/L Anion Gap 7.0 (3-11) BUN 28 H (7-18) mg/dl Creatinine 1.80 H (0.6-1.4) mg/dl Est Cr Clr Drug Dosing Not Reportable Est GFR ( Amer) 41.2 Est GFR (Non-Af Amer) 35.5 BUN/Creatinine Ratio 15.5 (10-20) Glucose 130 H (70-99) mg/dl Calcium 8.0 L (8.5-10.1) mg/dl Magnesium (1.8-2.4) mg/dl Total Bilirubin 0.6 (0.2-1) mg/dl AST 37 (15-37) U/L ALT 64 (12-78) U/L Alkaline Phosphatase 132 H (45-117) U/L Troponin I < 0.015 (0-0.045) ng/ml Total Protein 6.8 (6.4-8.2) gm/dl Albumin 3.2 L (3.4-5.0) gm/dl Globulin 3.6 (2.5-4.0) gm/dl Albumin/Globulin Ratio 0.9 (0.9-2) Lipase 109 (73-393) U/L Blood Type O Positive Antibody Screen NEGATIVE 11/17/18 Range/Units 21:11 WBC 9.19 (4.8-10.8) K/uL RBC 3.17 L (4.7-6.1) M/uL Hgb 8.7 L (14.0-18.0) g/dL Hct 28.0 L (42-52) % MCV 88.3 (80-100) fL MCH 27.4 (25-34) pg MCHC 31.1 L (32-36) g/dL RDW Std Deviation 61.5 H (36.4-46.3) fL RDW Coeff of Marilynn 21.0 H (11.5-14.5) % Plt Count 338 (130-400) K/uL MPV 9.2 (7.4-10.4) fL Immature Gran % (Auto) 0.3 % Neut % (Auto) 78.9 % Lymph % (Auto) 10.0 % [place] % (Auto) 8.7 % Eos % (Auto) 1.7 % Baso % (Auto) 0.4 % Immature Gran # (Auto) 0.03 H (0.00-0.02) K/uL Neut # (Auto) 7.24 H (1.4-6.5) K/uL Lymph # (Auto) 0.92 L (1.2-3.4) K/uL [place] # (Auto) 0.80 H (0.11-0.59) K/uL Eos # (Auto) 0.16 (0-0.5) K/uL Baso # (Auto) 0.04 (0-0.2) K/uL Absolute Nucleated RBC 0.05 H (0-0) K/uL Nucleated RBC % (auto) 0.5 % Anisocytosis Present Ovalocytes 1+ PT (9.0-12.0) Seconds INR (0.9-1.1) APTT (21.0-31.0) Seconds PTT Ratio POC pH (7.35-7.45) POC pCO2 (35-46) mmHg POC pO2 (80-95) mmHg POC HCO3 (19-24) izabel/L POC Total CO2 (24-31) mEq/l POC Base Excess (-9-1.8) izabel/L POC ABG O2 Sat (90-95) % Sodium (136-145) mmol/L Potassium (3.5-5.1) mmol/L Chloride (98-107) mmol/L Carbon Dioxide (21-32) mmol/L Anion Gap (3-11) BUN (7-18) mg/dl Creatinine (0.6-1.4) mg/dl Est Cr Clr Drug Dosing Est GFR ( Amer) Est GFR (Non-Af Amer) BUN/Creatinine Ratio (10-20) Glucose (70-99) mg/dl Calcium (8.5-10.1) mg/dl Magnesium (1.8-2.4) mg/dl Total Bilirubin (0.2-1) mg/dl AST (15-37) U/L ALT (12-78) U/L Alkaline Phosphatase (45-117) U/L Troponin I (0-0.045) ng/ml Total Protein (6.4-8.2) gm/dl Albumin (3.4-5.0) gm/dl Globulin (2.5-4.0) gm/dl Albumin/Globulin Ratio (0.9-2) Lipase (73-393) U/L Blood Type Antibody Screen Medications Administered Current Inpatient Medications Acetaminophen (Tylenol) 650 mg PO Q4H PRN PRN Reason: Pain or Fever Stop: 12/17/18 23:34 Al Hydrox/Mg Hydrox/Simethicone (Maalox) 15 ml PO Q4H PRN PRN Reason: Dyspepsia Stop: 12/17/18 23:34 Aspirin (Ecotrin Ectab) [facility] Stop: 12/18/18 08:59 Last Admin: 11/18/18 07:55 Dose: 81 mg Documented by: Atorvastatin Calcium (Lipitor) 80 mg PO HS [facility] Stop: 12/18/18 20:59 Citalopram Hydrobromide (Celexa) 20 mg PO HS [facility] Stop: 12/18/18 20:59 Cyanocobalamin (Vitamin B-12) 1,000 mcg PO PM [facility] Stop: 12/18/18 20:59 Diltiazem HCl (Cardizem Cd) 120 mg PO QAM [facility] Stop: 12/18/18 08:59 Last Admin: 11/18/18 07:54 Dose: 120 mg Documented by: Diphenhydramine HCl (Benadryl Capsule) 25 mg PO Q4 PRN PRN Reason: Allergic Symptoms Stop: 12/18/18 00:27 Ferrous Sulfate (Feosol) 325 mg PO BID [facility] Stop: 12/18/18 08:59 Last Admin: 11/18/18 07:54 Dose: 325 mg Documented by: Isosorbide Mononitrate (Imdur Extended Rel) 30 mg PO QAM [facility] Stop: 12/18/18 08:59 Last Admin: 11/18/18 07:54 Dose: 30 mg Documented by: Lorazepam (Ativan) 1 mg PO BID [facility] Stop: 12/18/18 08:59 Last Admin: 11/18/18 08:58 Dose: 1 mg Documented by: Magnesium Hydroxide (Milk Of Magnesia) 30 ml PO Q12H PRN PRN Reason: Constipation Stop: 12/17/18 23:34 Metoprolol Tartrate (Lopressor) 100 mg PO BID [facility] Stop: 12/18/18 08:59 Last Admin: 11/18/18 07:53 Dose: 100 mg Documented by: Miscellaneous (Order Awaiting Action) 1 ea N/A DAILY [facility] Stop: 12/18/18 08:59 Last Admin: 11/18/18 07:55 Dose: Not Given Documented by: Morphine Sulfate (Morphine Sulfate) 2 mg IV Q30M PRN PRN Reason: Chest Pain Stop: 12/01/18 23:34 Nitroglycerin (Nitrostat) 0.4 mg SL UD PRN PRN Reason: Chest Pain Stop: 12/17/18 23:34 Ondansetron HCl (Zofran) 4 mg IV Q6H PRN PRN Reason: Nausea Stop: 12/17/18 23:34 Pantoprazole Sodium (Protonix) 40 mg PO QAM [facility] Stop: 12/18/18 08:59 Last Admin: 11/18/18 07:53 Dose: 40 mg Documented by: Polyethylene Glycol (Miralax Powder Packet) 17 gm PO DAILY PRN PRN Reason: Constipation Stop: 12/17/18 23:34 Tolterodine Tartrate (Detrol) 2 mg PO BID [facility] Stop: 12/18/18 08:59 Last Admin: 11/18/18 07:55 Dose: 2 mg Documented by: PG Care Time/CCT Total # of Minutes Spent Total Time Spent with Patient: Total time spent is greater than 50% in coordination of care (as documented) at patient's floor/unit and/or counseling patient: Resident Activity Tracking Resident Involvement: Resident Care Provided Care Provided: Adult Hospital Medicine (1) Aortic regurgitation Cardiac valve disease etiology: etiology unspecified Qualified Code(s): I35.1 - Nonrheumatic aortic (valve) insufficiency (2) CAD (coronary artery disease), [place] coronary artery Associated angina: without angina [place] vs. transplanted heart: [place] heart Qualified Code(s): I25.10 - Atherosclerotic heart disease of [place] coronary artery without angina pectoris
[2018-11-18] MEDS ORDERED: FUROSEMIDE 40 MG in SYRINGE 0 ML IV ONE (18:30)
--- NOTE | 2018-11-18 18:30 | Cardiac Catheterization ---
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 Cardiac Status Clinical evaluation leading to the procedure CAD Presenation: No Sxs, No angina Anginal Classification: No Symptoms Heart Failure: NYHA Class: CCS IV Cardiogenic Shock within 24 Hours: No Cardiac Arrest within 24 Hours: No Imaging Studies Past 6 Months: Yes Stress Studies Past 6 Months: Yes Standard Exercise Test: No Stress Echocardiogram: No Stress Testing w/SPECT MPI: Yes - Positive and Risk/Extent of Ischemia (Intermediate) Cardiac CTA: No Coronary Anatomy Dominant: Right Left Main (% Stenosis): Normal LAD (% Stenosis): Ostial (60%), Proximal (100%) and Mid (60-70%) D1 (% Stenosis): Normal D2 (% Stenosis): Normal D3 (% Stenosis): Normal Circumflex (% Stenosis): Mid (99% followed by 100% stenosis.) OM1 (% Stenosis): Proximal (small vessel with 98% stenosis.) RCA (% Stenosis): Proximal (90% stenosis with otherwise, diffuse moderate CAD.) and Mid (100%) R PDA (% Stenosis): Ostial (small vessel filled via MITUL) R PL1 (% Stenosis): Ostial (small vessel filled via MITUL) Left Ventricular Angiography EF (%): n/a Diagnostic Physicians Name: Meet Trinidad MD Status: Elective Closure Device Percutaneous Entry Location: Femoral Closure Device: Angio-Seal (by Dr. Cesar) Recommendations: Medical Therapy and/or Counseling and Management Recommendatons (as noted) Cardiac Cath Procedure Full Procedure Date November 18, 2018 Pre-Procedure Diagnosis Pre-Procedure Diagnosis: Positive Stress Test and Cardiothoracic Symptom (Dyspnea on exertion) AUC Score AUC Score: 7 Post-Procedure Diagnosis Post-Procedure Diagnosis: Severe CAD Procedure(s) Performed Procedure(s) Performed: Coronary Angiography, Left Heart Cath, Ultrasound Guided Vascular Access, Bypass Graft Angiography and Femoral Artery Angiography Loan Servicing Specialist Meet Trinidad MD Seo Executive(s) Robb Cazares Estimated Blood Loss Estimated Blood Loss: < 30 ml Medication(s) Medication(s): Fentanyl, Lidocaine 1% and Versed Summary of Findings Procedures performed: 1. Coronary angiography of [place] coronary arteries 2. Coronary angiography of bypass grafts 3. Angiography of right femoral artery 4. Left heart catheterization 5. Ultrasound vascular guidance for access Coronary angiography: 1. Left main coronary artery: No significant CAD. 2. Left anterior descending: Ostial LAD 60% with high diagonal vessel noted prior to proximal LAD 100% stenosis. Remainder of LAD fills via CHOUDHARY. D2 is a medium caliber vessel and occurs prior to mid LAD 60-70%. D3 is a small caliber vessel. 3. Circumflex: Mid circumflex 99% subtotal occlusion followed by 100%. Small OM1 with proximal 98% stenosis. 4. Right coronary artery: The RCA is dominant. Proximal RCA has diffuse moderate CAD including proximal RCA 90% and early mid RCA 100% just beyond the bifurcation of acute marginal branch. Coronary angiography of bypass grafts: 1. CHOUDHARY to LAD is patent. 2. MITUL to RCA is patent. Left heart catheterization: 1. Left ventriculography was not performed. 2. Elevated LVEDP; LVEDP approximately 25mmHg (atrial fibrillation and ectopy present). 3. No significant aortic stenosis noted. Peak to peak gradient across the aortic valve 0-5mmHg. Right femoral artery angiography: 1. Angiography was performed of the right femoral artery access site. The right femoral sheath was noted to enter the right common femoral artery just above the bifurcation. Ultrasound guidance for vascular access: 1. Ultrasound was used to assist in access of the right femoral artery. Catheters: 1. JL 4 diagnostic catheter used to selectively engage the LMCA. 2. JR4 diagnostic catheter was used to selectively engage the RCA. 3. JERAMIE diagnostic catheter was used for angiography of the MITUL and CHOUDHARY. Sedation start time: 12:18 p.m. Sedation end time: 1:28 p.m. Procedural notes: 1. Prior to the procedure, patient appeared mildly tachypneic at times with heavy abdominal breathing. He denies shortness of breath at any time. He was found to be on 10 L of oxygen via mask. BiPAP was initiated to support and calm his breathing. His oxygen saturation remained acceptable, > 92%, throughout the procedure. Impression: 1. Severe multivessel CAD, including proximal LAD 100%, mid circumflex 100%, mid RCA 100%. 2. Patent bypass grafts (CHOUDHARY to LAD and MITUL to RCA). 3. Elevated left-sided filling pressures. 4. No significant aortic stenosis. 5. Closure device performed by Dr. Cesar of interventional Cardiology. Plan: 1. Optimize medical therapy. 2. Medical therapy recommended for CAD. OM too small for intervention. 3. Diurese. Hemodynamics Rest Ao:: 132/53 Final Ao: 138/59 LV: 122/14/25 Recommendations Recommendations: Medical Therapy and/or Counseling and Management Recommendatons (as noted) Specimens Specimens: None Radiation Exposure (mGy) 4110 mGy. Fluoro time 22 min. Contrast (mls) 150 ml Procedural Complication(s) None Disposition PCU
[2018-11-18] MEDS: CITALOPRAM 20 MG TAB PO SCH (19:59)
[2018-11-18] MEDS: ATORVASTATIN 40 MG TAB PO SCH (20:01)
[2018-11-18] MEDS: CYANOCOBALAMIN 500 MCG TABLET (VITAMIN B-12) PO SCH (20:01)
[2018-11-18] MEDS ORDERED: MoRPHine SULFATE 2 MG/ML CARP IV PRN (23:57)
[2018-11-19 06:00] LABS: Hematocrit (blood only) 29.2 % (42-52); Hemoglobin 9.2 g/dL (14.0-18.0)
[2018-11-19 06:40] LABS: BUN Creatinine Ratio 18.4 (10-20); Calcium 8.3 mg/dl (8.5-10.1); Creatinine Clr Calc Pharmacy 38.1 ml/min; Est GFR (African American) 39.6; Est GFR (Non-African American) 34.1; Magnesium 2.2 mg/dl (1.8-2.4); Potassium 3.6 mmol/L (3.5-5.1)
[2018-11-19] MEDS: FERROUS SULFATE 325 MG TAB PO SCH ×2 (07:44→20:02)
[2018-11-19] MEDS: PANTOprazole 40 MG TAB PO SCH (07:44)
[2018-11-19] MEDS: LORazepam 1 MG TAB PO SCH ×2 (07:44→20:01)
[2018-11-19] MEDS: METOPROLOL TARTRATE 100 MG TAB PO SCH ×2 (07:44→20:03)
[2018-11-19] MEDS: ISOSORBIDE MONO EXTENDED REL 30 MG TABCR PO SCH (07:45)
[2018-11-19] MEDS: TOLTERODINE TARTRATE 2 MG TAB PO SCH ×2 (07:45→20:02)
[2018-11-19] MEDS: ASPIRIN 81 MG ECTAB PO SCH (07:45)
[2018-11-19] MEDS: dilTIAZem HCL 120 MG CAPCR PO SCH (07:45)
--- NOTE | 2018-11-19 08:36 | Cardiology Progress Note ---
Date of Service November 19, 2018 Assessment & Plan (1) Acute diastolic CHF (congestive heart failure): Clinically much improved. Difficult exam in regards to volume status. Would continue to diurese with goal negative fluid balance of 1-2 Liters today. Monitor renal function and electrolytes closely. We discussed daily wt and low sodium diet. Enrolling in [facility] Heart Failure program (he is agreeable). Continue IV diuresis today. (2) CAD (coronary artery disease), [place] coronary artery: He has significant dyspnea with exertion and an abnormal myocardial perfusion study suggesting circumflex territory ischemia. Patent MITUL and CHOUDHARY to RCA and LAD, respectively. Circumflex is occluded. Medical therapy is recommended. Continue aspirin 81 mg daily. Continue beta-kenji, calcium channel kenji, and high-intensity statin therapy. No angina. Cath site intact s/p femoral artery closure. (3) S/P CABG x 2: Patent CHOUDHARY to LAD and MITUL to RCA. (4) Dyspnea on exertion: Much improved. Likely secondary to CHF as above. Continue current plan. (5) Aortic regurgitation: Non severe. Follow over time. (6) A-fib: History of paroxysmal atrial fibrillation but now appears to be persistent. Rate is well controlled. Afib may have contributed to his CHF diagnosis. He has declined anticoagulation for stroke risk reduction. He has not noted any active bleeding and his hemoglobin has been rather stable for the past several months, albeit anemic. Continue rate control strategy. (7) Essential hypertension: Blood pressure acceptable. Continue current regimen. Disposition: Patient care discussed with Dr. Ricardo and nursing staff. Cardiology will continue to follow. Subjective Breathing is much improved. He says he is now less short of breath than prior to recent discharge. He diureses significantly with lasix 40 mg IV x 2 yesterday. No chest pain, syncope, near syncope, palpitations, bleeding or edema. His right groin was mildly tender at times yesterday, but better now. He ambulated in the hallway with less dyspnea. ROS: as above. Physical Exam Physical Exam: Gen.: No acute distress. Alert and oriented. HEENT: Anicteric sclera. Neck: Thick neck. Cardiac: Irregularly irregular. Normal S1-S2. No murmurs, rubs, or gallops. Pulmonary: Clear to auscultation bilaterally without wheezes, rales, or rhonchi. Abdomen: Soft, nontender, nondistended, with normoactive bowel sounds. No bruits noted. Extremities: Right femoral access site is clean, dry, and intact without hematoma or discharge. No significant lower extremity edema. No cyanosis. Psychiatric: Affect appears appropriate. Results & Data Vital Signs (Past 12 Hours) Vital Signs Temp Pulse Pulse Resp BP Pulse Ox Pulse Ox 11/19/18 06:55 36.7 C 71 19 118/47 L 96 11/19/18 03:19 36.8 C 73 20 143/78 H 97 11/19/18 00:00 95 11/18/18 23:02 36.8 C 67 16 107/58 L 95 11/18/18 22:21 65 Intake & Output 11/17/18 11/18/18 11/19/18 11/20/18 06:59 06:59 06:59 06:59 Intake Total 300 / 300 1090 / 1090 Output Total 675 / 675 4900 / 4900 250 / 250 Balance -375 / -375 -3810 / -3810 -250 / -250 Weight 106.5 kg 99.8 kg Laboratory Results Laboratory Results - last 24 hr 11/18/18 11/19/18 11/19/18 12:33 05:19 05:19 Hgb 9.2 L Hct 29.2 L POC pH 7.37 POC pCO2 37 POC pO2 84 POC HCO3 21 POC Total CO2 22 L POC Base Excess -4.0 POC ABG O2 Sat 96.0 H Sodium 139 Potassium 3.6 D Chloride 102 Carbon Dioxide 29 Anion Gap 8.0 BUN 34 H Creatinine 1.86 H Est Cr Clr Drug Dosing 38.1 Est GFR ( Amer) 39.6 Est GFR (Non-Af Amer) 34.1 BUN/Creatinine Ratio 18.4 Glucose 142 H Calcium 8.3 L Magnesium 2.2 Diagnostic Findings Cardiac cath report reviewed from 11/18/18: Prox LAD 100%. mid Cx 100%. mid RCA 100%. CHOUDHARY to LAD patent. MITUL to RCA patent. Elevated LVEDP. Telemetry reviewed: Rate controlled atrial fibrillation. Medications Administered Current Inpatient Medications Acetaminophen (Tylenol) 650 mg PO Q4H PRN PRN Reason: Pain or Fever Stop: 12/17/18 23:34 Al Hydrox/Mg Hydrox/Simethicone (Maalox) 15 ml PO Q4H PRN PRN Reason: Dyspepsia Stop: 12/17/18 23:34 Aspirin (Ecotrin Ectab) 81 mg PO QAM [facility] Stop: 12/18/18 08:59 Last Admin: 11/19/18 07:45 Dose: 81 mg Documented by: Atorvastatin Calcium (Lipitor) 80 mg PO HS [facility] Stop: 12/18/18 20:59 Last Admin: 11/18/18 20:01 Dose: 80 mg Documented by: Citalopram Hydrobromide (Celexa) 20 mg PO HS [facility] Stop: 12/18/18 20:59 Last Admin: 11/18/18 19:59 Dose: 20 mg Documented by: Cyanocobalamin (Vitamin B-12) 1,000 mcg PO PM [facility] Stop: 12/18/18 20:59 Last Admin: 11/18/18 20:01 Dose: 1,000 mcg Documented by: Diltiazem HCl (Cardizem Cd) 120 mg PO QAM [facility] Stop: 12/18/18 08:59 Last Admin: 11/19/18 07:45 Dose: 120 mg Documented by: Diphenhydramine HCl (Benadryl Capsule) 25 mg PO Q4 PRN PRN Reason: Allergic Symptoms Stop: 12/18/18 00:27 Ferrous Sulfate (Feosol) 325 mg PO BID [facility] Stop: 12/18/18 08:59 Last Admin: 11/19/18 07:44 Dose: 325 mg Documented by: Isosorbide Mononitrate (Imdur Extended Rel) 30 mg PO QAM [facility] Stop: 12/18/18 08:59 Last Admin: 11/19/18 07:45 Dose: 30 mg Documented by: Lorazepam (Ativan) 1 mg PO BID [facility] Stop: 12/18/18 08:59 Last Admin: 11/19/18 07:44 Dose: 1 mg Documented by: Magnesium Hydroxide (Milk Of Magnesia) 30 ml PO Q12H PRN PRN Reason: Constipation Stop: 12/17/18 23:34 Metoprolol Tartrate (Lopressor) 100 mg PO BID [facility] Stop: 12/18/18 08:59 Last Admin: 11/19/18 07:44 Dose: 100 mg Documented by: Miscellaneous (Order Awaiting Action) 1 ea N/A DAILY [facility] Stop: 09/18/19 08:59 Last Admin: 11/19/18 07:45 Dose: Not Given Documented by: Morphine Sulfate (Morphine Sulfate) 2 mg IV Q2H PRN PRN Reason: Pain Stop: 12/01/18 23:34 Nitroglycerin (Nitrostat) 0.4 mg SL UD PRN PRN Reason: Chest Pain Stop: 12/17/18 23:34 Ondansetron HCl (Zofran) 4 mg IV Q6H PRN PRN Reason: Nausea Stop: 12/17/18 23:34 Pantoprazole Sodium (Protonix) 40 mg PO QAM [facility] Stop: 12/18/18 08:59 Last Admin: 11/19/18 07:44 Dose: 40 mg Documented by: Polyethylene Glycol (Miralax Powder Packet) 17 gm PO DAILY PRN PRN Reason: Constipation Stop: 12/17/18 23:34 Tolterodine Tartrate (Detrol) 2 mg PO BID [facility] Stop: 12/18/18 08:59 Last Admin: 11/19/18 07:45 Dose: 2 mg Documented by: PG Care Time/CCT Total # of Minutes Spent Total Time Spent with Patient: Total time spent is greater than 50% in coordination of care (as documented) at patient's floor/unit and/or counseling patient: (1) CAD (coronary artery disease), [place] coronary artery [place] vs. transplanted heart: [place] heart Associated angina: without angina Qualified Code(s): I25.10 - Atherosclerotic heart disease of [place] coronary artery without angina pectoris (2) Aortic regurgitation Cardiac valve disease etiology: etiology unspecified Qualified Code(s): I35.1 - Nonrheumatic aortic (valve) insufficiency
[2018-11-19] MEDS ORDERED: FUROSEMIDE 40 MG in SYRINGE 0 ML IV ONE (09:54)
--- NOTE | 2018-11-19 16:20 | Family Medicine Progress Note ---
Date of Service November 19, 2018 Assessment & Plan (1) Dyspnea on exertion: 78y/o M with h/o AF, CAD, HTN, HLD, presented to hospital on 11/10 with exertional dyspnea, lexiscan at that time demonstrated anterior/inferior defects. At that time elected to go home and follow-up for cardiac cathet erization. Re-presented to hospital on 11/17, for worsening dyspnea now at rest. Underwent cardiac catheterization demonstrating diffuse disease with patent grafts to LAD & RCA. Dyspnea on exertion: -s/p cardiac catheterization 11/18, demonstrating patent CABG grafts -likely 2/2 hypervolemia -received 40mg IV lasix for diuresis in AM, with some symptomatic improvement; repeat 20mg dose scheduled for this evening (11/19) -still requiring O2 support through [place] at this time -BMP in AM CAD: -known nonobstructive CAD in the circumflex territory in 1997 and has not had a cardiac catheterization since then. -Continue aspirin 81 mg daily -Continue beta-kenji and high-intensity statin therapy. s/p CABG (2 vessel): -status post LAD and RCA bypass (1997) -CHOUDHARY to LAD -MITUL to RCA Abnormal nuclear stress test: -Circumflex territory ischemia was suggested. Plan as above. Aortic Regurgitation: -Non severe. Follow over time. Atrial Fibrillation: -appears to be persistent. -Continue rate control strategy. Code Status: Full code DVT ppx: SCDs Dispo: observe on med/surg floor with telemetry (2) CAD (coronary artery disease), [place] coronary artery: (3) S/P CABG x 2: (4) Abnormal nuclear stress test: (5) Aortic regurgitation: (6) A-fib: (7) Essential hypertension: Supervising Physician Co-Signing Physician Notes I personally examined the patient and verified all concepcion points of history and exam, discussed case, and agree with decision making with Dr Ricardo. Breathing continues to improve. He is weaning oxygen well. He is okay with the idea of maybe needing to go home with oxygen depending on how he is doing. He feeds back a very good understanding of the relationship between sodium and fluid retention, as well as a fairly good understanding of how to look for sodium and foods. Vitals noted, in general he is awake and alert pleasant no distress. Breathing is unlabored no accessory muscle use good effort. Skin shows no rashes no pallor or icterus.. Acute HFpEF improving with Lasix. Definitely seem lots of room for improvement with lifestyle as it relates to sodium intake, but fortunately he is expressing a good understanding and willingness to make changes. Continued education in this regard. Continue diuresis. Hypoxiaappears to relate pulmonary edemawean oxygen as possible. May need home oxygen, will check two-step tomorrow. DVT prophylaxiscompression (pharmacologic not given due to his anemia related to recent hematuria) Subjective Pt is feeling much better this morning, received 80mg of IV lasix yesterday with marked symptomatic improvement. Continues to require O2 support for comfort of breathing, currently on 4L [place]. Understands that he needs to reduce his daily salt intake, and will need two-step O2 evaluation for determination of his need to have home O2 due to the progression of his symptoms Review of Systems Constitutional: no fever, no chills, no sweats and no weakness Respiratory: + dyspnea; no cough and no hemoptysis Cardiovascular: + dyspnea and + orthopnea; no chest pain, no palpitations and no edema Gastrointestinal: no abdominal pain, no nausea and no vomiting Physical Exam Constitutional: well nourished, cooperative and + overweight Respiratory: + labored breathing, + tachypneic and + nasal flaring Auscultation: + diminished lung sounds (lower lobes b/l) and + crackles; no rales and no wheezes Cardiovascular: Rate/Rhythm: regular rate Heart Sounds: normal S1 and normal S2; no gallop, no murmur and no cardiac rub Extremities: no pedal edema Gastrointestinal (Abdomen): Percussion/Palpation: abdomen soft; abdomen nontender, no guarding and no hepatosplenomegaly Results & Data Vital Signs (Past 12 Hours) Vital Signs Temp Pulse Resp BP Pulse Ox Pulse Ox 11/19/18 15:06 36.5 C 73 20 117/54 L 91 11/19/18 10:42 36.5 C 75 19 140/65 95 11/19/18 08:00 95 11/19/18 06:55 36.7 C 71 19 118/47 L 96 Laboratory Results 11/19/18 11/19/18 Range/Units 05:19 05:19 Hgb 9.2 L (14.0-18.0) g/dL Hct 29.2 L (42-52) % Sodium 139 (136-145) mmol/L Potassium 3.6 D (3.5-5.1) mmol/L Chloride 102 (98-107) mmol/L Carbon Dioxide 29 (21-32) mmol/L Anion Gap 8.0 (3-11) BUN 34 H (7-18) mg/dl Creatinine 1.86 H (0.6-1.4) mg/dl Est Cr Clr Drug Dosing 38.1 ml/min Est GFR ( Amer) 39.6 Est GFR (Non-Af Amer) 34.1 BUN/Creatinine Ratio 18.4 (10-20) Glucose 142 H (70-99) mg/dl Calcium 8.3 L (8.5-10.1) mg/dl Magnesium 2.2 (1.8-2.4) mg/dl Medications Administered Current Inpatient Medications Acetaminophen (Tylenol) 650 mg PO Q4H PRN PRN Reason: Pain or Fever Stop: 12/17/18 23:34 Last Admin: 11/19/18 10:32 Dose: 650 mg Documented by: Al Hydrox/Mg Hydrox/Simethicone (Maalox) 15 ml PO Q4H PRN PRN Reason: Dyspepsia Stop: 12/17/18 23:34 Aspirin (Ecotrin Ectab) 81 mg PO [facility] Stop: 12/18/18 08:59 Last Admin: 11/19/18 07:45 Dose: 81 mg Documented by: Atorvastatin Calcium (Lipitor) 80 mg PO [facility] Stop: 12/18/18 20:59 Last Admin: 11/18/18 20:01 Dose: 80 mg Documented by: Citalopram Hydrobromide (Celexa) 20 mg PO [facility] Stop: 12/18/18 20:59 Last Admin: 11/18/18 19:59 Dose: 20 mg Documented by: Cyanocobalamin (Vitamin B-12) 1,000 mcg PO PM [facility] Stop: 12/18/18 20:59 Last Admin: 11/18/18 20:01 Dose: 1,000 mcg Documented by: Diltiazem HCl (Cardizem Cd) 120 mg PO QAM [facility] Stop: 12/18/18 08:59 Last Admin: 11/19/18 07:45 Dose: 120 mg Documented by: Diphenhydramine HCl (Benadryl Capsule) 25 mg PO Q4 PRN PRN Reason: Allergic Symptoms Stop: 12/18/18 00:27 Ferrous Sulfate (Feosol) 325 mg PO BID [facility] Stop: 12/18/18 08:59 Last Admin: 11/19/18 07:44 Dose: 325 mg Documented by: Furosemide 20 mg/ Syringe 2 mls @ 4 mls/min IV 1630 ONE Stop: 11/19/18 16:31 Isosorbide Mononitrate (Imdur Extended Rel) 30 mg PO QAM [facility] Stop: 12/18/18 08:59 Last Admin: 11/19/18 07:45 Dose: 30 mg Documented by: Lorazepam (Ativan) 1 mg PO BID [facility] Stop: 12/18/18 08:59 Last Admin: 11/19/18 07:44 Dose: 1 mg Documented by: Magnesium Hydroxide (Milk Of Magnesia) 30 ml PO Q12H PRN PRN Reason: Constipation Stop: 12/17/18 23:34 Metoprolol Tartrate (Lopressor) 100 mg PO BID [facility] Stop: 12/18/18 08:59 Last Admin: 11/19/18 07:44 Dose: 100 mg Documented by: Miscellaneous (Order Awaiting Action) 1 ea N/A DAILY [facility] Stop: 12/18/18 08:59 Last Admin: 11/19/18 07:45 Dose: Not Given Documented by: Morphine Sulfate (Morphine Sulfate) 2 mg IV Q2H PRN PRN Reason: Pain Stop: 12/01/18 23:34 Nitroglycerin (Nitrostat) 0.4 mg SL UD PRN PRN Reason: Chest Pain Stop: 12/17/18 23:34 Ondansetron HCl (Zofran) 4 mg IV Q6H PRN PRN Reason: Nausea Stop: 12/17/18 23:34 Pantoprazole Sodium (Protonix) 40 mg PO QAM [facility] Stop: 12/18/18 08:59 Last Admin: 11/19/18 07:44 Dose: 40 mg Documented by: Polyethylene Glycol (Miralax Powder Packet) 17 gm PO DAILY PRN PRN Reason: Constipation Stop: 12/17/18 23:34 Tolterodine Tartrate (Detrol) 2 mg PO BID [facility] Stop: 12/18/18 08:59 Last Admin: 11/19/18 07:45 Dose: 2 mg Documented by: PG Care Time/CCT Total # of Minutes Spent Total Time Spent with Patient: Total time spent is greater than 50% in coordination of care (as documented) at patient's floor/unit and/or counseling patient: Resident Activity Tracking Resident Involvement: Resident Care Provided Care Provided: Adult Hospital Medicine (1) Aortic regurgitation Cardiac valve disease etiology: etiology unspecified Qualified Code(s): I35.1 - Nonrheumatic aortic (valve) insufficiency (2) CAD (coronary artery disease), [place] coronary artery Associated angina: without angina [place] vs. transplanted heart: [place] heart Qualified Code(s): I25.10 - Atherosclerotic heart disease of [place] coronary artery without angina pectoris
[2018-11-19] MEDS ORDERED: FUROSEMIDE 20 MG in SYRINGE 0 ML IV ONE (16:30)
--- NOTE | 2018-11-19 17:19 | Heart Failure Progress Note ---
Date of Service November 19, 2018 Assessment & Plan (1) Acute diastolic CHF (congestive heart failure): The patient continues to have an appropriate response to his current dose of IV diuretics. Continue to diurese with a goal of-1 to 2 L per day. He had 40 mg of IV Lasix this morning and has a repeat dose of 20 mg IV this afternoon. Patient reports his dry weight at home to be 220 lb which is where he is today. Again, question if his current weight is accurate given he has had a 15 lb weight loss overnight. Continue daily standing weights. Continue daily monitoring of kidney function and electrolytes. We discussed the nature and goals of the program. Patient is agreeable to part icipate in the heart failure program. We discussed daily standing weights at home, documenting these weights, and bringing these his follow-up appointment. He does not currently drive and relies on his son to bring him to his appointments. He is requesting morning appointment times because his son is off work at that time. Heart failure protocol will be initiated today and we will add his follow up appointment to the chart once available. We discussed low- sodium diet and fluid restriction. He will likely require ongoing education and possibly a nutritional referral if he's agreeable. He openly admits that he may be difficult to manage due to his noncompliance but is willing to try to follow the program. Will continue to follow him during his stay. Subjective Mr. Dhillon is been referred to the heart failure program at the request of Dr. Trinidad. Full cardiology consult has been dictated. Patient reports that he is feeling improved today. His breathing is better but he is still on 2 L supplemental oxygen. He has had a total of 60 mg IV Lasix today. He is net negative -5 L so far this admission. If the weights in his chart are accurate, he is down approximately 20 lbs since he was originally admitted on 11/10/18 (almost 15 lb since yesterday?). Will continue to follow. Results & Data Vital Signs (Past 12 Hours) Vital Signs Temp Pulse Resp BP Pulse Ox Pulse Ox 11/19/18 15:06 97.7 F 73 20 117/54 L 91 11/19/18 10:42 97.7 F 75 19 140/65 95 11/19/18 08:00 95 11/19/18 06:55 98.1 F 71 19 118/47 L 96
[2018-11-19] MEDS: CITALOPRAM 20 MG TAB PO SCH (20:01)
[2018-11-19] MEDS: ATORVASTATIN 40 MG TAB PO SCH (20:02)
[2018-11-19] MEDS: CYANOCOBALAMIN 500 MCG TABLET (VITAMIN B-12) PO SCH (20:06)
[2018-11-20 06:19] LABS: Basophils # (auto) 0.03 K/uL (0-0.2); Basophils % (auto) 0.4 %; Eosinophils # (auto) 0.23 K/uL (0-0.5); Eosinophils % (auto) 2.8 %; Hemoglobin 10.4 g/dL (14.0-18.0); Immature Granulocytes # (auto) 0.04 K/uL (0.00-0.02); Immature Granulocytes % (auto) 0.5 %; Lymphocytes # (auto) 1.12 K/uL (1.2-3.4); Lymphocytes % (auto) 13.8 %; Mean Corpuscular Hgb Conc 31.5 g/dL (32-36); Mean Corpuscular Volume 88.5 fL (80-100); Mean Platelet Volume 9.5 fL (7.4-10.4); Monocytes # (auto) 0.95 K/uL (0.11-0.59); Monocytes % (auto) 11.7 %; Neutrophils # (auto) 5.74 K/uL (1.4-6.5); Neutrophils % (auto) 70.8 %; Platelet Count 313 K/uL (130-400); RDW Coefficient of Variation 21.8 % (11.5-14.5); RDW Standard Deviation 66.7 fL (36.4-46.3); Red Blood Count 3.73 M/uL (4.7-6.1); White Blood Count 8.11 K/uL (4.8-10.8)
[2018-11-20 06:45] LABS: Anisocytosis Present; Polychromasia 1+
[2018-11-20 06:55] LABS: BUN Creatinine Ratio 19.8 (10-20); Calcium 8.6 mg/dl (8.5-10.1); Creatinine Clr Calc Pharmacy 41.4 ml/min; Est GFR (African American) 43.8; Est GFR (Non-African American) 37.8; Potassium 3.9 mmol/L (3.5-5.1)
--- NOTE | 2018-11-20 08:55 | Cardiology Progress Note ---
Date of Service November 20, 2018 Assessment & Plan (1) Acute diastolic CHF (congestive heart failure): Much improved since presentation. He is negative slightly greater than 6 L during this hospitalization, which correlates well with his weight loss as well. He denies any shortness of breath. Exam is difficult to know his volume status but he is not hypovolemic get as his renal function remains stable. Would give 1 more dose of IV Lasix this morning and then would discharge on Lasix 40 mg p.o. once daily. Close follow-up in Heart failure program. Low- sodium diet, less than 2000 mg daily. We once again discussed the importance of his diet and also daily weights which should be written down and brought to each appointment. (2) CAD (coronary artery disease), [place] coronary artery: He has significant dyspnea with exertion and an abnormal myocardial perfusion study suggesting circumflex territory ischemia. Patent MITUL and CHOUDHARY to RCA and LAD, respectively. Circumflex is occluded. Medical therapy is recommended. Continue aspirin 81 mg daily. Continue beta-kenji, calcium channel kenji, nitrate therapy, and high-intensity statin therapy. No angina. Cath site intact s/p femoral artery closure. (3) S/P CABG x 2: Patent CHOUDHARY to LAD and MITUL to RCA. (4) Dyspnea on exertion: Much improved with intravenous diuresis. Continue heart failure treatment plan as above. (5) Aortic regurgitation: Non severe. Follow over time. (6) A-fib: History of paroxysmal atrial fibrillation but now appears to be persistent. Rate is well controlled. Afib may have contributed to his CHF diagnosis. He has declined anticoagulation for stroke risk reduction. He has no t noted any active bleeding and his hemoglobin has been rather stable for the past several months, albeit anemic. Continue rate control strategy. He was asked to further consider anticoagulation for stroke risk reduction. (7) Essential hypertension: Blood pressure adequately controlled. Continue current regimen as above. Disposition: Follow-up within 1 week in Heart failure program. Labs will be done prior to this and he will also receive a phone call approximately 2 days following discharge to discuss his weight, breathing, medications, and any concerns. From a cardiac perspective, he will likely be ready for discharge later today. Would recommend Lasix 40 mg p.o. once daily on discharge. Subjective He denies chest pain. His shortness of breath has resolved. He ambulated in the hallways without any shortness of breath. He denies orthopnea, syncope, near-syncope, palpitations, or edema. He has not noted any bleeding such as melena, hematochezia, hematuria, or any bleeding from his right femoral arterial catheterization site. He would like to go home today. Review of systems: As above. Physical Exam Physical Exam: Gen.: No acute distress. Alert and oriented. HEENT: Anicteric sclera. Neck: Thick neck. Cardiac: Irregularly irregular, but rate controlled. Normal S1-S2. No murmurs, rubs, or gallops. Pulmonary: Clear to auscultation bilaterally without wheezes, rales, or rhonchi. Abdomen: Soft, nontender, nondistended, with normoactive bowel sounds. No bruits noted. Extremities: Right femoral access site is clean, dry, and intact without hematoma or discharge. No significant lower extremity edema. No cyanosis. No palpable cords. Psychiatric: Affect appears appropriate. Results & Data Vital Signs (Past 12 Hours) Vital Signs Temp Pulse Pulse Pulse Pulse Pulse Resp 11/20/18 07:35 71 82 64 11/20/18 07:05 36.5 C 62 20 11/20/18 02:55 61 18 11/20/18 00:00 11/19/18 23:13 36.8 C 61 19 11/19/18 22:20 63 Resp Resp Resp BP Pulse Ox Pulse Ox Pulse Ox 11/20/18 07:35 18 18 16 91 11/20/18 07:05 111/53 L 95 11/20/18 02:55 131/54 L 92 11/20/18 00:00 94 11/19/18 23:13 109/44 L 97 11/19/18 22:20 Pulse Ox Pulse Ox 11/20/18 07:35 90 91 11/20/18 07:05 11/20/18 02:55 11/20/18 00:00 11/19/18 23:13 11/19/18 22:20 Intake & Output 11/18/18 11/19/18 11/20/18 11/21/18 06:59 06:59 06:59 06:59 Intake Total 300 / 300 1090 / 1090 1200 / 1200 Output Total 675 / 675 4900 / 4900 3350 / 3350 200 / 200 Balance -375 / -375 -3810 / -3810 -2150 / -2150 -200 / -200 Weight 106.5 kg 99.8 kg 99.6 kg Laboratory Results Laboratory Results - last 24 hr 11/20/18 11/20/18 06:05 06:05 WBC 8.11 RBC 3.73 L Hgb 10.4 L Hct 33.0 L MCV 88.5 MCH 27.9 MCHC 31.5 L RDW Std Deviation 66.7 H RDW Coeff of Marilynn 21.8 H Plt Count 313 MPV 9.5 Immature Gran % (Auto) 0.5 Neut % (Auto) 70.8 Lymph % (Auto) 13.8 Gilmer % (Auto) 11.7 Eos % (Auto) 2.8 Baso % (Auto) 0.4 Immature Gran # (Auto) 0.04 H Neut # (Auto) 5.74 Lymph # (Auto) 1.12 L Gilmer # (Auto) 0.95 H Eos # (Auto) 0.23 Baso # (Auto) 0.03 Polychromasia 1+ Anisocytosis Present Sodium 140 Potassium 3.9 Chloride 102 Carbon Dioxide 30 Anion Gap 8.0 BUN 34 H Creatinine 1.71 H Est Cr Clr Drug Dosing 41.4 Est GFR ( Amer) 43.8 Est GFR (Non-Af Amer) 37.8 BUN/Creatinine Ratio 19.8 Glucose 106 H Calcium 8.6 Diagnostic Findings Telemetry personally reviewed: Rate controlled atrial fibrillation. Medications Administered Current Inpatient Medications Acetaminophen (Tylenol) 650 mg PO Q4H PRN PRN Reason: Pain or Fever Stop: 12/17/18 23:34 Last Admin: 11/19/18 10:32 Dose: 650 mg Documented by: Al Hydrox/Mg Hydrox/Simethicone (Maalox) 15 ml PO Q4H PRN PRN Reason: Dyspepsia Stop: 12/17/18 23:34 Aspirin (Ecotrin Ectab) 81 mg PO [facility] Stop: 12/18/18 08:59 Last Admin: 11/19/18 07:45 Dose: 81 mg Documented by: Atorvastatin Calcium (Lipitor) 80 mg PO [facility] Stop: 12/18/18 20:59 Last Admin: 11/19/18 20:02 Dose: 80 mg Documented by: Citalopram Hydrobromide (Celexa) 20 mg PO [facility] Stop: 12/18/18 20:59 Last Admin: 11/19/18 20:01 Dose: 20 mg Documented by: Cyanocobalamin (Vitamin B-12) 1,000 mcg PO PM [facility] Stop: 12/18/18 20:59 Last Admin: 11/19/18 20:06 Dose: 1,000 mcg Documented by: Diltiazem HCl (Cardizem Cd) 120 mg PO QAM [facility] Stop: 12/18/18 08:59 Last Admin: 11/19/18 07:45 Dose: 120 mg Documented by: Diphenhydramine HCl (Benadryl Capsule) 25 mg PO Q4 PRN PRN Reason: Allergic Symptoms Stop: 12/18/18 00:27 Ferrous Sulfate (Feosol) 325 mg PO BID [facility] Stop: 12/18/18 08:59 Last Admin: 11/19/18 20:02 Dose: 325 mg Documented by: Isosorbide Mononitrate (Imdur Extended Rel) [facility] Stop: 12/18/18 08:59 Last Admin: 11/19/18 07:45 Dose: 30 mg Documented by: Lorazepam (Ativan) 1 mg PO BID [facility] Stop: 12/18/18 08:59 Last Admin: 11/19/18 20:01 Dose: 1 mg Documented by: Magnesium Hydroxide (Milk Of Magnesia) 30 ml PO Q12H PRN PRN Reason: Constipation Stop: 12/17/18 23:34 Metoprolol Tartrate (Lopressor) 100 mg PO BID [facility] Stop: 12/18/18 08:59 Last Admin: 11/19/18 20:03 Dose: 100 mg Documented by: Miscellaneous (Order Awaiting Action) 1 ea N/A DAILY [facility] Stop: 12/18/18 08:59 Last Admin: 11/19/18 07:45 Dose: Not Given Documented by: Morphine Sulfate (Morphine Sulfate) 2 mg IV Q2H PRN PRN Reason: Pain Stop: 12/01/18 23:34 Nitroglycerin (Nitrostat) 0.4 mg SL UD PRN PRN Reason: Chest Pain Stop: 12/17/18 23:34 Ondansetron HCl (Zofran) 4 mg IV Q6H PRN PRN Reason: Nausea Stop: 12/17/18 23:34 Pantoprazole Sodium (Protonix) 40 mg PO QAM [facility] Stop: 12/18/18 08:59 Last Admin: 11/19/18 07:44 Dose: 40 mg Documented by: Polyethylene Glycol (Miralax Powder Packet) 17 gm PO DAILY PRN PRN Reason: Constipation Stop: 12/17/18 23:34 Tolterodine Tartrate (Detrol) 2 mg PO BID [facility] Stop: 12/18/18 08:59 Last Admin: 11/19/18 20:02 Dose: 2 mg Documented by: PG Care Time/CCT Total # of Minutes Spent Total Time Spent with Patient: Total time spent is greater than 50% in coordination of care (as documented) at patient's floor/unit and/or counseling patient: (1) CAD (coronary artery disease), [place] coronary artery [place] vs. transplanted heart: [place] heart Associated angina: without angina Qualified Code(s): I25.10 - Atherosclerotic heart disease of [place] coronary artery without angina pectoris (2) Aortic regurgitation Cardiac valve disease etiology: etiology unspecified Qualified Code(s): I35.1 - Nonrheumatic aortic (valve) insufficiency
[2018-11-20] MEDS ORDERED: FUROSEMIDE 40 MG in SYRINGE 0 ML IV ONE (09:00)
[2018-11-20] MEDS: LORazepam 1 MG TAB PO SCH (09:38)
[2018-11-20] MEDS: METOPROLOL TARTRATE 100 MG TAB PO SCH (09:39)
[2018-11-20] MEDS: dilTIAZem HCL 120 MG CAPCR PO SCH (09:39)
[2018-11-20] MEDS: FERROUS SULFATE 325 MG TAB PO SCH (09:39)
[2018-11-20] MEDS: PANTOprazole 40 MG TAB PO SCH (09:39)
[2018-11-20] MEDS: ISOSORBIDE MONO EXTENDED REL 30 MG TABCR PO SCH (09:39)
[2018-11-20] MEDS: TOLTERODINE TARTRATE 2 MG TAB PO SCH (09:39)
[2018-11-20] MEDS: ASPIRIN 81 MG ECTAB PO SCH (09:39)
--- NOTE | 2018-11-20 13:03 | Discharge Summary ---
Date of Service November 20, 2018 Admission HPI Per Admitting Provider 78 y/o M Hx AF, CAD, HTN, HLD, urinary retention, depression/anxiety, anemia. The pt was recently evaluated by cardiology and had a Lexiscan on 11/10 demonstrating reversible anterior and inferior defects. He was scheduled for a follow-up visit to discuss a cardiac catheterization. He was brought to the ER this evening at the behest of his son due to progressive dyspnea, pronounced with exertion. he has a degree of orthopnea and denies CP or a productive cough. Initial labs are notable for anemia which is stable but significant. A CXR was consistent with CHF. He has not previously been admitted for CHF and does not take a daily diuretic. A recent echo did not mention systolic or diastolic CHF and demonstrated an EF of 57%. The RVSP was notably elevated. PMH: 1) CAD - history of CABG 2) AF 3) HTN 4) HLD 5) Anemia due to hematuria 6) GERD 7) BPH 8) Iron-deficient anemia - recent Hb ~9 at baseline 9) Abnormal nuclear stress 11/10/18 - mid inferior and distal anterior reversible wall motion abnormalities Surgical: CABG - 2V > 20 yrs ago Social: Does not drink or smoke Family: Noncontributory Admission Exam (Per Admitting) Constitutional well nourished, cooperative and + overweight Respiratory + labored breathing, + tachypneic and + nasal flaring Auscultation: + diminished lung sounds (lower lobes b/l) and + crackles; no rales and no wheezes Cardiovascular Rate/Rhythm: regular rate Heart Sounds: normal S1 and normal S2; no gallop, no murmur and no cardiac rub Extremities: no pedal edema Gastrointestinal (Abdomen) Percussion/Palpation: abdomen soft; abdomen nontender, no guarding and no hepatosplenomegaly Discharge Data Consultations 11/17/18 22:56 ED Decision to Admit Stat 11/17/18 23:35 Consult Cardiology Routine Procedures Performed Operation Date: 11/18/18 11:00 Actual Procedures p Cath, Left w/Cors Vent Grafts - Meet Trinidad MD s Ultrasound Vascular Access - Taco Cesar MD Hospital Course (1) Dyspnea on exertion: 78y/o M with h/o AF, CAD, HTN, HLD, presented to hospital on 11/10 with exertional dyspnea, lexiscan at that time demonstrated anterior/inferior defects. At that time elected to go home and follow-up for cardiac catheterization. Re-presented to hospital on 11/17, for worsening dyspnea now at rest. Underwent cardiac catheterization demonstrating diffuse disease with patent grafts to LAD & RCA. Dyspnea on exertion: -s/p cardiac catheterization 11/18, demonstrating patent CABG grafts -likely 2/2 hypervolemia -continue 40mg lasix -BMP in on 11/22 CAD: -known nonobstructive CAD in the circumflex territory in 1997 and has not had a cardiac catheterization since then. -Continue aspirin 81 mg daily -Continue beta-kenji and high-intensity statin therapy. s/p CABG (2 vessel): -status post LAD and RCA bypass (1997) -CHOUDHARY to LAD -MITUL to RCA Abnormal nuclear stress test: -Circumflex territory ischemia was suggested. Plan as above. Aortic Regurgitation: -Non severe. Follow over time. Atrial Fibrillation: -appears to be persistent. -Continue rate control strategy. Code Status: Full code (2) CAD (coronary artery disease), [place] coronary artery: (3) S/P CABG x 2: (4) Abnormal nuclear stress test: (5) Aortic regurgitation: (6) A-fib: (7) Essential hypertension: Supervising Physician Co-Signing Physician Notes I personally examined the patient and verified all concepcion points of history and exam, discussed case, and agree with decision making with Dr Ricardo. Breathing continues to improve. off O2. Wants to go home. Expresses a very good understanding of sodium avoidance. Extensive discussions on sodium, discussions on monitoring his symptoms and wait to look for signs or symptoms of fluid retention, and discussed close lab follow-up to protect him against getting to "dry" on the new dosing of diuretics. Vitals noted, in general he is awake and alert pleasant no distress. Breathing is unlabored no accessory muscle use good effort. Skin shows no rashes no pallor or icterus.. Acute HFpEF improving with Lasix. Lifestyle change/sodium restriction. Stable for home on oral Lasix. Basic metabolic panel at PCPs office on Sunday. Follow daily weights, follow breathing, advised to look first for orthopnea or dyspnea on exertion, advised that having a home pulse ox would help him as well and following how he is doing. Stable for home. Hypoxiaappears to relate pulmonary edemaoxygen weaned off DVT prophylaxiscompression (pharmacologic not given due to his anemia related to recent hematuria) Stable for home Resident Activity Tracking Resident Involvement: Resident Care Provided Care Provided: Adult Hospital Medicine
[2018-11-21] MEDS ORDERED: FUROSEMIDE 40 MG TAB PO SCH (09:00)
== END 2018-11-20 13:34 | disposition home or self-care (01) | DRG 286 ==
LOC: ED 20:46 → 2E 23:37 → SUATTDRO 23:37 → 2E 11-18 00:17
DX: R09.02 Hypoxemia; N18.9 Chronic kidney disease, unspecified; D50.9 Iron deficiency anemia, unspecified; F32.9 Major depressive disorder, single episode, unspecified; I48.1 Persistent atrial fibrillation; I25.10 Atherosclerotic heart disease of native coronary artery without angina pectoris; R33.8 Other retention of urine; E78.5 Hyperlipidemia, unspecified; I35.1 Nonrheumatic aortic (valve) insufficiency; Z95.1 Presence of aortocoronary bypass graft; Z79.82 Long term (current) use of aspirin; I13.0 Hypertensive heart and chronic kidney disease with heart failure and stage 1 through stage 4 chronic kidney disease, or unspecified chronic kidney disease; N40.1 Benign prostatic hyperplasia with lower urinary tract symptoms; R94.39 Abnormal result of other cardiovascular function study; F41.9 Anxiety disorder, unspecified; I50.31 Acute diastolic (congestive) heart failure; Z79.899 Other long term (current) drug therapy; K21.9 Gastro-esophageal reflux disease without esophagitis; R06.00 Dyspnea, unspecified

== ENCOUNTER 2019-03-14 06:23 | Inpatient (IN) ==
[2019-03-14] MEDS ORDERED: SODIUM CHLORIDE 0.9% 1000ML 1,000 ML IV SCH ×2 (07:00→08:00)
[2019-03-14 07:05] LABS: Basophils # (auto) 0.02 K/uL (0-0.2); Basophils % (auto) 0.2 %; Eosinophils % (auto) 1.2 %; Hemoglobin 11.7 g/dL (14.0-18.0); Immature Granulocytes # (auto) 0.05 K/uL (0.00-0.02); Immature Granulocytes % (auto) 0.6 %; Lymphocytes # (auto) 1.16 K/uL (1.2-3.4); Lymphocytes % (auto) 14.3 %; Mean Corpuscular Hemoglobin 33.4 pg (25-34); Mean Corpuscular Hgb Conc 31.6 g/dL (32-36); Mean Corpuscular Volume 105.7 fL (80-100); Mean Platelet Volume 9.8 fL (7.4-10.4); Monocytes # (auto) 0.82 K/uL (0.11-0.59); Monocytes % (auto) 10.1 %; Neutrophils # (auto) 5.98 K/uL (1.4-6.5); Neutrophils % (auto) 73.6 %; Nucleated RBC # (auto) 0.08 K/uL (0-0); Platelet Count 288 K/uL (130-400); RDW Coefficient of Variation 16.8 % (11.5-14.5); RDW Standard Deviation 63.1 fL (36.4-46.3); White Blood Count 8.13 K/uL (4.8-10.8)
[2019-03-14] MEDS ORDERED: ROCURONIUM BROMIDE 10 MG/ML 10 ML VIAL IV ONE (07:05)
[2019-03-14] MEDS ORDERED: ETOMIDATE 2 MG/ML 20 ML VIAL IV ONE ×2 (07:05→11:33)
--- NOTE | 2019-03-14 07:15 | XRay Report ---
XR chest 1V portable CLINICAL HISTORY: Sepsis COMPARISON STUDY: 11/17/2018 FINDINGS: There are postsurgical changes of midline sternotomy. The heart is enlarged. There is diffu se elevation of interstitium, likely secondary to mild pulmonary vascular congestion/fluid overload. More focal left basilar airspace opacities likely represent focal edema although a superimposed pneum onia cannot be excluded. There are no large pleural effusions.[ IMPRESSION: Cardiomegaly and radiographic evidence of mild congestive failure/fluid overload. More fo iggy left basilar airspace opacities likely represent focal edema although a superimposed pneumonia ca nnot be excluded. Electronically signed by: Jered Hernández M.D. 03/14/2019 7:14 AM
[2019-03-14 07:26] LABS: Alanine Aminotransferase 94 U/L (12-78); Albumin Level 3.5 gm/dl (3.4-5.0); Aspartate Aminotransferase 88 U/L (15-37); BUN Creatinine Ratio 20.3 (10-20); Blood Urea Nitrogen 68 mg/dl (7-18); Calcium 8.5 mg/dl (8.5-10.1); Carbon Dioxide 21 mmol/L (21-32); Chloride 110 mmol/L (98-107); Est GFR (African American) 19.5; Est GFR (Non-African American) 16.8; Glucose 103 mg/dl (70-99); Potassium 5.8 mmol/L (3.5-5.1); Sodium 140 mmol/L (136-145)
[2019-03-14 07:30] LABS: INR 1.5 (0.9-1.1); Partial Thromboplastin Time 26.2 Seconds (21.0-31.0); Prothrombin Time 14.7 Seconds (9.0-12.0)
[2019-03-14 07:31] LABS: Albumin Globulin Ratio 0.9 (0.9-2); Alkaline Phosphatase 124 U/L (45-117); Bilirubin,Total 0.6 mg/dl (0.2-1); Globulin 4.1 gm/dl (2.5-4.0); NT Pro B Type Natriuretic Pept 9003 pg/ml (0-1800); Phosphorus 7.6 mg/dl (2.5-4.9); Total Protein 7.6 gm/dl (6.4-8.2); Troponin I < 0.015 ng/ml (0-0.045)
[2019-03-14] MEDS ORDERED: FUROSEMIDE 40 MG/4 ML VIAL IV STA (07:31)
[2019-03-14 07:32] LABS: Base Excess ABG -5.7 mEq/L (-9-1.8); HCO3 ABG 20 mmol/L (19-24); Oxygen Saturation ABG 94.2 % (90-95); PCO2 ABG 37 mmHg (35-46); PO2 ABG 79 mm/Hg (80-95); pH ABG 7.34 (7.35-7.45)
[2019-03-14 07:49] LABS: Influenza A virus by PCR Neg for Influ A (Neg); Influenza B virus by PCR Neg for Influ B (Neg)
[2019-03-14 07:51] LABS: Allen Test Pos (Pos)
[2019-03-14] MEDS ORDERED: AZITHROMYCIN 500 MG in DEXTROSE 5% 250 ML IV ONE (08:16)
[2019-03-14] MEDS ORDERED: cefTRIAXone SODIUM 2,000 MG/70 ML BAG IV STA (08:16)
[2019-03-14 08:38] LABS: Appearance Urine Cloudy (Clear); Bilirubin Urine Negative (Negative); Blood Urine Trace (Negative); Color Urine Dark Yellow; Epithelial Cell Urine Auto >30 /lpf (0-5); Glucose Urine UA Negative (Negative); Ketones Urine Trace (Negative); Leukocyte Esterase Urine Negative (Negative); Nitrite Urine Negative (Negative); Protein Urine 1+ (Negative); Specific Gravity Urine 1.031 (1.000-1.030); Urobilinogen Urine Negative (Negative)
[2019-03-14] MEDS ORDERED: ALBUT/IPRATROP 3MG/0.5MG NEB 3 ML VIAL NEB STA (08:53)
[2019-03-14 08:54] LABS: Sperm Urine Present (None Prsent)
[2019-03-14 08:55] LABS: Bacteria Urine Automated 1+ (Negative)
--- NOTE | 2019-03-14 09:15 | CT Scan Report ---
CT head/brain wo con CLINICAL HISTORY: Acute change in mental status COMPARISON STUDY: June 26, 2017 TECHNIQUE: Axial CT of the brain is performed from the vertex to the skull base. IV contrast was not administered for this examination. A dose lowering technique was utilized adhering to the principles of ALARA. CT DOSE: 1237.86 mGy.cm FINDINGS: No intra or extra-axial mass lesions are visualized. There is no CT evidence of acute cortical infarc tion. There is no evidence of midline shift. There is no acute hemorrhage. No calvarial fractures ar e visualized. There are minimal white matter hypodensities likely on a small vessel basis. There is no evidence of pathologic ventricular dilatation. There is no evidence of acute sinusitis. The study is mildly compromised due to motion artifact. IMPRESSION: No acute intracranial findings Electronically signed by: Jered Hernández M.D. 03/14/2019 9:13 AM
--- NOTE | 2019-03-14 09:47 | History & Physical Report ---
Date of Service March 14, 2019 Assessment & Plan (1) Acute diastolic CHF (congestive heart failure): 78-year-old male was admitted on 14 March 2019 for shortness of breath. Acute on chronic diastolic CHF: Symptomatically worsening over past 48 hours. Unclear if any infectious symptoms. May have had some dietary indiscretion over past couple weeks. Reportedly very thirsty in past couple days. Unclear exactly which cardiac meds he is presently on. Reportedly on Lasix as needed at home. - Clinic weight on was 95 kg. Oct 2018 echo noted EF 55-60%, severe left atrial dilatation (amongst other findings). - In ED, afebrile, mildly bradycardic, tachypneic, with lowest BP 92/64. BNP 9003. Weight 106 kg. Troponin negative. EKG is afib rate 51. pCXR with evidence of fluid overload. - In ED, placed on BiPAP, gave 40 mg IV Lasix, and placed a shepard cath. - Will continue lasix 40 mg IV BID. Keep on BiPAP initially. Daily weights and close UOP monitoring. Acute hypoxic respiratory failure, AMS: Symptomatically worsening over past 48 hours. No reported baseline pulmonary disease. Respiratory failure likely due to acute CHF as above. Mild AMS likely due to multi-system issues. - Per son, had been started on amoxicillin yesterday (12Dec) via phone consult with PCP, ? diagnosis. - In ED, arrival SpO2 was 82% on room air. ABG pH 7.34, PCO2 37, bicarb 20. WBC 8, lactate 4.2, procalcitonin 0.12, AG 9. Influenza negative. pCXR with questionable left-sided opacities/PNA. BCx sent. CT head non-acute. - In ED, placed on BiPAP. Given ceftriaxone and azithromycin. - Will continue CAP coverage with ceftriaxone and azithromycin. Recheck lactate . Await culture results. Acute on chronic kidney disease stage III: Admit Cr 3.3, BUN 60. UA is a dirty specimen. UCx sent. Cr elevation may be due in part to third spacing fluid overload but intravascular volume depletion. - In ED, started on normal saline IVF. - Will hold on further IVF. Will see if function improves with diuresis. Is currently making urine. Recheck in a.m. Consider nephrology consult if progressively worsening. Lab abnormalities: May be due in part to third spacing fluid overload but intravascular volume depletion. - Hyperkalemia: Admit K 5.8. EKG does not show peaked T waves or interval issues (though is in slow afib). Given Lasix for CHF, will monitor. - Hyperphosphatemia: Admit Phos 7.6. - Hypomagnesemia: Admit Mg 3.0. - Transaminitis: Mild elevations in AST, ALT, AP, and INR. Ongoing medical issues: - Hypertension, hyperlipidemia, CAD s/p CABG x 2 vessel (1997), aortic regurgitation: Son is unclear of the exact home medication regimen. Most recent listed was aspirin, atorvastatin, diltiazem, Imdur, lisinopril, metoprolol. --- Will hold metoprolol (due to mild bradycardia) and Lisinopril (due to elevated Cr). Otherwise keep remainder initially. - Chronic atrial fibrillation: Admit EKG afib rate 51. On Eliquis at home. - Iron deficiency anemia: Admit Hb 11.7, MCV 105. Continue home iron. - Anxiety/depression: Continue home Celexa. - GERD: Continue home omeprazole. Code status: Full code (based on bedside discussion with son). Diet: Cardiac diet, low-sodium. DVT prophy: Eliquis. PT/OT: Deferred on admission. Disbo: Admit to PCU. (2) Chronic diastolic CHF (congestive heart failure): (3) Acute respiratory failure with hypoxia: (4) AMS (altered mental status): (5) Acute on chronic renal insufficiency: (6) Hyperkalemia: (7) Hyperphosphatemia: (8) Hypomagnesemia: (9) Transaminitis: (10) Hypertension: (11) Hyperlipidemia: (12) CAD (coronary artery disease), [place] coronary artery: (13) Aortic regurgitation: (14) Chronic atrial fibrillation: (15) Iron deficiency anemia: (16) Anxiety: (17) Depression: (18) GERD (gastroesophageal reflux disease): History of Present Illness Primary Care Provider: Phil Hicks MD 78-year-old male presents with his son for shortness of breath. The patient's son moved in with his father to help with overall care. Son says that the patient has not been feeling well for about 2 days. Primarily describes as weakness and unable to do basic activities such as getting dressed or walking on stairs. Has been complaining of being very thirsty and thus is constantly asking for fluids. Good solid p.o. intake/appetite. He may have had some dietary indiscretion and increased salt intake over the past couple weeks. Not complaining of any new pain, but complains of chronic back pain. Noted a bit of dry cough during the same time. Patient presents this morning because his lips appeared purple when patient first saw him this AM. At the time of this H&P, patient is on BiPAP. He is somewhat unintelligible in his answers but denies any pain. He says his breathing is been up and down for the past few days. He knows his name, that he is in the hospital in [place], but says it is 2009. - Past medical history includes hypertension, hyperlipidemia, CAD, aortic regurgitation, chronic atrial fibrillation, chronic renal insufficiency, iron deficiency anemia, anxiety, depression, obstructive uropathy (reportedly resolved s/p TURP), GERD. - Past surgical history includes two-vessel CABG in 1997, most recent cardiac cath in October 2018, TURP (2018). - Social history includes never smoked. Denies alcohol use. Lives at home, son moved in to help, apparently mostly independent baseline. Allergies Allergy/AdvReac Type Severity Reaction Status Date / Time No Known Drug Allergies Allergy Verified 03/14/19 07:10 Home Medications Home Medications Medication Instructions Recorded Confirmed Type Prilosec OTC 20 mg PO QAM 12/30/17 03/14/19 History atorvastatin 80 mg PO HS 12/30/17 03/14/19 History citalopram [Celexa] 20 mg PO HS 12/30/17 03/14/19 History aspirin [Aspir-81] 81 mg PO QAM 04/23/18 03/14/19 History diltiazem HCl 120 mg PO QAM #30 cap 11/13/18 03/14/19 Rx ferrous sulfate 325 mg PO BID #60 tab 11/13/18 03/14/19 Rx isosorbide mononitrate 30 mg PO QAM #30 tab 11/13/18 03/14/19 Rx nitroglycerin 0.4 mg SUBLINGUAL Q5M PRN #1 btl 11/13/18 03/14/19 Rx cyanocobalamin (vitamin B-12) 1,000 mcg PO PM 11/17/18 03/14/19 History apixaban 5 mg tablet 5 mg PO BID #60 tab 12/11/18 03/14/19 Rx lisinopril 10 mg tablet 10 mg PO DAILY 12/11/18 03/14/19 History furosemide 40 mg tablet 40 mg PO DAILY PRN #30 tab 02/07/19 03/14/19 Rx amoxicillin 500 mg PO TID 03/14/19 03/14/19 History metoprolol tartrate 0 mg PO BID 03/14/19 03/14/19 History Past Med/Surg History Medical History (Updated 03/14/19 @ 13:06 by Brayden Vuong MD) A-fib (Chronic) Acute blood loss anemia 2/2 hematuria, had 2 units PRBCs during admission 02/28-03/03 Acute diastolic heart failure Acute hypoxemic respiratory failure Acute kidney injury (Acute) Admitted [facility] 01/05-01/09 for obstruction uropathy/EDUARDA. Readmitted 02/28-03/03 for hematuria/acute blood loss anemia. Acute kidney injury Admitted to intensive care unit Anxiety (Chronic) CAD (coronary artery disease), [place] coronary artery Chronic diastolic CHF (congestive heart failure) Depression (Chronic) Elevated troponin (Resolved) Per discharge summary 01/09/18: "Likely because of EDUARDA , no ischemic concerns" Essential hypertension (Chronic) GERD (gastroesophageal reflux disease) (Chronic) Gross hematuria History of anesthesia reaction CONVULSIONS POST OP QUICK COMING AWAKE FROM CABG SURG 20 YRS AGO. DENIES SEIZURES, SAYS HE 'WOKE UP TOO QUICKLY' AND THEY PUT HIM BACK UNDER Hyperkalemia Hyperlipidemia Hypertension Indwelling Shepard catheter present Lactic acidosis Obstructive uropathy (Acute) Caused EDUARDA, admitted [facility] 12/2017, discharged with Shepard and then self- cathing. Caused injury self-cathing and was readmitted for blood loss. Surgical History H/O colonoscopy History of cardiac cath NO STENTS-20 YRS AGO History of cardioversion 2-3 YRS AGO [facility] History of coronary artery bypass graft 2 [facility] 20 YRS AGO-[facility] S/P CABG x 2 Family History Brother Family history of esophageal cancer Other No pertinent family history Social History Preferred Language: Tunisian Communication Ability: Effective Visual Impairment: No Limitations Palliative Nurse Required: No Beliefs That Will Affect Care: None marital status: Single Current Living Situation: Family Current Living Situation Comment: lives with son Other Information That Helps Us Care for You: No Feels Safe at Home: Yes Safety Concerns: Feels Safe At This Time Smoking Status: Never smoker Second Hand Exposure: No ; Hx Alcohol Use: No Hx Substance Use: No Review of Systems Review of Systems: Unobtainable due to cognitive status Review of systems is limited due to patient's acuity and AMS. Physical Exam Physical Exam: GENERAL: Awake, alert to self and location, a bit disoriented, and appears stabilized from his respiratory distress. HENT: Normocephalic, atraumatic. EYES: Normal conjunctiva. Sclera non-icteric. NECK: Inspection normal. Supple and full ROM. No nuchal rigidity. CARDIAC: +S1S2 irregularly irregular and borderline bradycardic, no murmurs. RESPIRATORY: Rales at bases. BiPAP in place. GI: +BS, soft, non-distended. No tenderness to palpation. No rebound or guarding. EXTREMITIES: No pedal edema or calf tenderness. Moving all extremities mildly without purpose. NEURO: Mildly confused. Periodically grabs at his BiPAP mask to take it off. Results & Data Vital Signs (Past 12 Hours) Vital Signs Temp Pulse Resp BP Pulse Ox 03/14/19 09:10 26 H 99 03/14/19 08:26 100 03/14/19 08:15 59 L 29 H 121/68 99 03/14/19 08:01 53 L 27 H 103/59 L 98 03/14/19 07:46 40 L 30 H 92/64 L 99 03/14/19 07:43 55 L 25 H 112/60 100 03/14/19 07:30 55 L 28 H 99 03/14/19 07:27 55 L 26 H 98 03/14/19 07:00 51 L 31 H 93 03/14/19 06:26 36.4 C L 52 L 24 107/69 82 L Laboratory Results 12/13/19 12/13/19 12/13/19 Range/Units Unknown Unknown 08:20 WBC (4.8-10.8) K/uL RBC (4.7-6.1) M/uL Hgb (14.0-18.0) g/dL Hct (42-52) % MCV (80-100) fL MCH (25-34) pg MCHC (32-36) g/dL RDW Std Deviation (36.4-46.3) fL RDW Coeff of Marilynn (11.5-14.5) % Plt Count (130-400) K/uL MPV (7.4-10.4) fL Immature Gran % (Auto) % Neut % (Auto) % Lymph % (Auto) % Lewis % (Auto) % Eos % (Auto) % Baso % (Auto) % Immature Gran # (Auto) (0.00-0.02) K/uL Neut # (Auto) (1.4-6.5) K/uL Lymph # (Auto) (1.2-3.4) K/uL Lewis # (Auto) (0.11-0.59) K/uL Eos # (Auto) (0-0.5) K/uL Baso # (Auto) (0-0.2) K/uL Absolute Nucleated RBC (0-0) K/uL Nucleated RBC % (auto) % PT (9.0-12.0) Seconds INR (0.9-1.1) APTT (21.0-31.0) Seconds PTT Ratio ABG pH (7.35-7.45) ABG pCO2 (35-46) mmHg ABG pO2 (80-95) mm/Hg ABG HCO3 (19-24) mmol/L ABG O2 Saturation (90-95) % ABG Base Excess (-9-1.8) mEq/L Billy Test (Pos) Barometric Pressure mm/Hg Oxygen Given Sodium (136-145) mmol/L Potassium (3.5-5.1) mmol/L Chloride (98-107) mmol/L Carbon Dioxide (21-32) mmol/L Anion Gap (3-11) BUN (7-18) mg/dl Creatinine (0.6-1.4) mg/dl Est Cr Clr Drug Dosing Est GFR ( Amer) Est GFR (Non-Af Amer) BUN/Creatinine Ratio (10-20) Glucose (70-99) mg/dl Lactate (0.4-2.0) mmol/L Calcium (8.5-10.1) mg/dl Phosphorus Cancelled (2.5-4.9) mg/dl Magnesium Cancelled (1.8-2.4) mg/dl Total Bilirubin (0.2-1) mg/dl AST (15-37) U/L ALT (12-78) U/L Alkaline Phosphatase (45-117) U/L Troponin I Cancelled (0-0.045) ng/ml NT-Pro-B Natriuret Pep Cancelled (0-1800) pg/ml Total Protein (6.4-8.2) gm/dl Albumin (3.4-5.0) gm/dl Globulin (2.5-4.0) gm/dl Albumin/Globulin Ratio (0.9-2) Procalcitonin (0-0.5) ng/ml Urine Color Dark Yellow Urine Appearance Cloudy A (Clear) Urine pH 5.0 (4.5-7.5) Ur Specific Tell 1.031 H (1.000-1.030) Urine Protein 1+ H (Negative) Urine Glucose (UA) Negative (Negative) Urine Ketones Trace H (Negative) Urine Blood Trace H (Negative) Urine Nitrite Negative (Negative) Urine Bilirubin Negative (Negative) Urine Urobilinogen Negative (Negative) Ur Leukocyte Esterase Negative (Negative) Urine WBC (Auto) 5-10 H (0-5) /hpf Urine RBC (Auto) 5-10 H (0-4) /hpf U Hyaline Cast (Auto) 5-10 H (0-5) /lpf U Epithel Cells (Auto) >30 H (0-5) /lpf Urine Bacteria (Auto) 1+ H (Negative) Urine Yeast Not Reportable Urine Sperm Present A (None Prsent) Influenza Type A (PCR) Neg for Influ A (Neg) Influenza Type B (PCR) Neg for Influ B (Neg) 03/14/19 03/14/19 03/14/19 Range/Units 07:21 06:48 06:47 WBC 8.13 (4.8-10.8) K/uL RBC 3.50 L (4.7-6.1) M/uL Hgb 11.7 L (14.0-18.0) g/dL Hct 37.0 L (42-52) % MCV 105.7 H (80-100) fL MCH 33.4 (25-34) pg MCHC 31.6 L (32-36) g/dL RDW Std Deviation 63.1 H (36.4-46.3) fL RDW Coeff of Marilynn 16.8 H (11.5-14.5) % Plt Count 288 (130-400) K/uL MPV 9.8 (7.4-10.4) fL Immature Gran % (Auto) 0.6 % Neut % (Auto) 73.6 % Lymph % (Auto) 14.3 % Lewis % (Auto) 10.1 % Eos % (Auto) 1.2 % Baso % (Auto) 0.2 % Immature Gran # (Auto) 0.05 H (0.00-0.02) K/uL Neut # (Auto) 5.98 (1.4-6.5) K/uL Lymph # (Auto) 1.16 L (1.2-3.4) K/uL Lewis # (Auto) 0.82 H (0.11-0.59) K/uL Eos # (Auto) 0.10 (0-0.5) K/uL Baso # (Auto) 0.02 (0-0.2) K/uL Absolute Nucleated RBC 0.08 H (0-0) K/uL Nucleated RBC % (auto) 1.0 % PT (9.0-12.0) Seconds INR (0.9-1.1) APTT (21.0-31.0) Seconds PTT Ratio ABG pH 7.34 L (7.35-7.45) ABG pCO2 37 (35-46) mmHg ABG pO2 79 L (80-95) mm/Hg ABG HCO3 20 (19-24) mmol/L ABG O2 Saturation 94.2 (90-95) % ABG Base Excess -5.7 (-9-1.8) mEq/L Billy Test Pos (Pos) Barometric Pressure 740.3 mm/Hg Oxygen Given 4 L Sodium (136-145) mmol/L Potassium (3.5-5.1) mmol/L Chloride (98-107) mmol/L Carbon Dioxide (21-32) mmol/L Anion Gap (3-11) BUN (7-18) mg/dl Creatinine (0.6-1.4) mg/dl Est Cr Clr Drug Dosing Est GFR ( Amer) Est GFR (Non-Af Amer) BUN/Creatinine Ratio (10-20) Glucose (70-99) mg/dl Lactate 4.2 H* (0.4-2.0) mmol/L Calcium (8.5-10.1) mg/dl Phosphorus (2.5-4.9) mg/dl Magnesium (1.8-2.4) mg/dl Total Bilirubin (0.2-1) mg/dl AST (15-37) U/L ALT (12-78) U/L Alkaline Phosphatase (45-117) U/L Troponin I (0-0.045) ng/ml NT-Pro-B Natriuret Pep (0-1800) pg/ml Total Protein (6.4-8.2) gm/dl Albumin (3.4-5.0) gm/dl Globulin (2.5-4.0) gm/dl Albumin/Globulin Ratio (0.9-2) Procalcitonin (0-0.5) ng/ml Urine Color Urine Appearance (Clear) Urine pH (4.5-7.5) Ur Specific Tell (1.000-1.030) Urine Protein (Negative) Urine Glucose (UA) (Negative) Urine Ketones (Negative) Urine Blood (Negative) Urine Nitrite (Negative) Urine Bilirubin (Negative) Urine Urobilinogen (Negative) Ur Leukocyte Esterase (Negative) Urine WBC (Auto) (0-5) /hpf Urine RBC (Auto) (0-4) /hpf U Hyaline Cast (Auto) (0-5) /lpf U Epithel Cells (Auto) (0-5) /lpf Urine Bacteria (Auto) (Negative) Urine Yeast Urine Sperm (None Prsent) Influenza Type A (PCR) (Neg) Influenza Type B (PCR) (Neg) 03/14/19 03/14/19 03/14/19 Range/Units 06:46 06:46 06:46 WBC (4.8-10.8) K/uL RBC (4.7-6.1) M/uL Hgb (14.0-18.0) g/dL Hct (42-52) % MCV (80-100) fL MCH (25-34) pg MCHC (32-36) g/dL RDW Std Deviation (36.4-46.3) fL RDW Coeff of Marilynn (11.5-14.5) % Plt Count (130-400) K/uL MPV (7.4-10.4) fL Immature Gran % (Auto) % Neut % (Auto) % Lymph % (Auto) % Lewis % (Auto) % Eos % (Auto) % Baso % (Auto) % Immature Gran # (Auto) (0.00-0.02) K/uL Neut # (Auto) (1.4-6.5) K/uL Lymph # (Auto) (1.2-3.4) K/uL Lewis # (Auto) (0.11-0.59) K/uL Eos # (Auto) (0-0.5) K/uL Baso # (Auto) (0-0.2) K/uL Absolute Nucleated RBC (0-0) K/uL Nucleated RBC % (auto) % PT 14.7 H (9.0-12.0) Seconds INR 1.5 H (0.9-1.1) APTT 26.2 (21.0-31.0) Seconds PTT Ratio 1.0 ABG pH (7.35-7.45) ABG pCO2 (35-46) mmHg ABG pO2 (80-95) mm/Hg ABG HCO3 (19-24) mmol/L ABG O2 Saturation (90-95) % ABG Base Excess (-9-1.8) mEq/L Billy Test (Pos) Barometric Pressure mm/Hg Oxygen Given Sodium 140 (136-145) mmol/L Potassium 5.8 H (3.5-5.1) mmol/L Chloride 110 H (98-107) mmol/L Carbon Dioxide 21 (21-32) mmol/L Anion Gap 9.0 (3-11) BUN 68 H (7-18) mg/dl Creatinine 3.34 H (0.6-1.4) mg/dl Est Cr Clr Drug Dosing Not Reportable Est GFR ( Amer) 19.5 Est GFR (Non-Af Amer) 16.8 BUN/Creatinine Ratio 20.3 H (10-20) Glucose 103 H (70-99) mg/dl Lactate (0.4-2.0) mmol/L Calcium 8.5 (8.5-10.1) mg/dl Phosphorus 7.6 H (2.5-4.9) mg/dl Magnesium 3.0 H (1.8-2.4) mg/dl Total Bilirubin 0.6 (0.2-1) mg/dl AST 88 H (15-37) U/L ALT 94 H (12-78) U/L Alkaline Phosphatase 124 H (45-117) U/L Troponin I Pending < 0.015 (0-0.045) ng/ml NT-Pro-B Natriuret Pep 9003 H (0-1800) pg/ml Total Protein 7.6 (6.4-8.2) gm/dl Albumin 3.5 (3.4-5.0) gm/dl Globulin 4.1 H (2.5-4.0) gm/dl Albumin/Globulin Ratio 0.9 (0.9-2) Procalcitonin (0-0.5) ng/ml Urine Color Urine Appearance (Clear) Urine pH (4.5-7.5) Ur Specific Tell (1.000-1.030) Urine Protein (Negative) Urine Glucose (UA) (Negative) Urine Ketones (Negative) Urine Blood (Negative) Urine Nitrite (Negative) Urine Bilirubin (Negative) Urine Urobilinogen (Negative) Ur Leukocyte Esterase (Negative) Urine WBC (Auto) (0-5) /hpf Urine RBC (Auto) (0-4) /hpf U Hyaline Cast (Auto) (0-5) /lpf U Epithel Cells (Auto) (0-5) /lpf Urine Bacteria (Auto) (Negative) Urine Yeast Urine Sperm (None Prsent) Influenza Type A (PCR) (Neg) Influenza Type B (PCR) (Neg) 03/14/19 Range/Units 06:44 WBC (4.8-10.8) K/uL RBC (4.7-6.1) M/uL Hgb (14.0-18.0) g/dL Hct (42-52) % MCV (80-100) fL MCH (25-34) pg MCHC (32-36) g/dL RDW Std Deviation (36.4-46.3) fL RDW Coeff of Marilynn (11.5-14.5) % Plt Count (130-400) K/uL MPV (7.4-10.4) fL Immature Gran % (Auto) % Neut % (Auto) % Lymph % (Auto) % Lewis % (Auto) % Eos % (Auto) % Baso % (Auto) % Immature Gran # (Auto) (0.00-0.02) K/uL Neut # (Auto) (1.4-6.5) K/uL Lymph # (Auto) (1.2-3.4) K/uL Lewis # (Auto) (0.11-0.59) K/uL Eos # (Auto) (0-0.5) K/uL Baso # (Auto) (0-0.2) K/uL Absolute Nucleated RBC (0-0) K/uL Nucleated RBC % (auto) % PT (9.0-12.0) Seconds INR (0.9-1.1) APTT (21.0-31.0) Seconds PTT Ratio ABG pH (7.35-7.45) ABG pCO2 (35-46) mmHg ABG pO2 (80-95) mm/Hg ABG HCO3 (19-24) mmol/L ABG O2 Saturation (90-95) % ABG Base Excess (-9-1.8) mEq/L Billy Test (Pos) Barometric Pressure mm/Hg Oxygen Given Sodium (136-145) mmol/L Potassium (3.5-5.1) mmol/L Chloride (98-107) mmol/L Carbon Dioxide (21-32) mmol/L Anion Gap (3-11) BUN (7-18) mg/dl Creatinine (0.6-1.4) mg/dl Est Cr Clr Drug Dosing Est GFR ( Amer) Est GFR (Non-Af Amer) BUN/Creatinine Ratio (10-20) Glucose (70-99) mg/dl Lactate (0.4-2.0) mmol/L Calcium (8.5-10.1) mg/dl Phosphorus (2.5-4.9) mg/dl Magnesium (1.8-2.4) mg/dl Total Bilirubin (0.2-1) mg/dl AST (15-37) U/L ALT (12-78) U/L Alkaline Phosphatase (45-117) U/L Troponin I (0-0.045) ng/ml NT-Pro-B Natriuret Pep (0-1800) pg/ml Total Protein (6.4-8.2) gm/dl Albumin (3.4-5.0) gm/dl Globulin (2.5-4.0) gm/dl Albumin/Globulin Ratio (0.9-2) Procalcitonin 0.12 (0-0.5) ng/ml Urine Color Urine Appearance (Clear) Urine pH (4.5-7.5) Ur Specific Tell (1.000-1.030) Urine Protein (Negative) Urine Glucose (UA) (Negative) Urine Ketones (Negative) Urine Blood (Negative) Urine Nitrite (Negative) Urine Bilirubin (Negative) Urine Urobilinogen (Negative) Ur Leukocyte Esterase (Negative) Urine WBC (Auto) (0-5) /hpf Urine RBC (Auto) (0-4) /hpf U Hyaline Cast (Auto) (0-5) /lpf U Epithel Cells (Auto) (0-5) /lpf Urine Bacteria (Auto) (Negative) Urine Yeast Urine Sperm (None Prsent) Influenza Type A (PCR) (Neg) Influenza Type B (PCR) (Neg) Medications Administered Sodium Chloride (Nss 1000ml) 1,000 mls @ 125 mls/hr IV .Q8H [facility] Stop: 04/13/19 07:59 Last Admin: 03/14/19 08:25 Dose: 125 mls/hr Documented by: [id number] Azithromycin 500 mg/ Dextrose 255 mls @ 125 mls/hr IV ONE ONE Stop: 03/14/19 10:18 Last Admin: 03/14/19 08:48 Dose: 125 mls/hr Documented by: [id number] Discontinued Medications Albuterol (Duoneb) 3 ml NEB NOW STA Stop: 03/14/19 08:54 Last Admin: 03/14/19 09:08 Dose: 3 ml Documented by: [id number] Furosemide (Lasix) 40 mg IV NOW STA Stop: 03/14/19 07:32 Last Admin: 03/14/19 08:25 Dose: 40 mg Documented by: [id number] Sodium Chloride (Nss 1000ml) 1,000 mls @ 999 mls/hr IV .Q1H1M [facility] Stop: 03/14/19 08:00 Last Admin: 03/14/19 08:25 Dose: Not Given Documented by: [id number] Ceftriaxone Sodium (Rocephin) 2,000 mg in 70 mls @ 140 mls/hr IV NOW STA Stop: 03/14/19 08:45 Last Infusion: 03/14/19 09:17 Dose: 0 mls/hr Documented by: [id number] Admin: 03/14/19 08:47 Dose: 140 mls/hr Documented by: [id number] Code Status & VTE Plan Code Status Full code Supervising Physician Co-Signing Physician Notes I supervised Karel Montenegro MD on this patient's care. I examined the patient today with him. I discussed the plan of care with him with the plan being as written in his note except for any following changes/exceptions: None. Resident Activity Tracking Resident Involvement: Resident Care Provided Care Provided: Adult Hospital Medicine (1) Depression Depression Type: other depression Qualified Code(s): F32.89 - Other specified depressive episodes (2) CAD (coronary artery disease), [place] coronary artery Associated angina: without angina [place] vs. transplanted heart: [place] heart Qualified Code(s): I25.10 - Atherosclerotic heart disease of [place] coronary artery without angina pectoris (3) GERD (gastroesophageal reflux disease) Esophagitis presence: esophagitis presence not specified Qualified Code(s): K21.9 - Gastro-esophageal reflux disease without esophagitis
[2019-03-14] MEDS ORDERED: RAPID SEQUENCE INDUCTION BAG ONE (10:53)
[2019-03-14] MEDS ORDERED: PROPOFOL IV EMULSION 10 MG/ML 100 ML VIAL IV ONE (10:57)
--- NOTE | 2019-03-14 10:57 | XRay Report ---
XR chest 1V portable HISTORY: Difficulty breathing. COMPARISON: Chest 03/14/2019. FINDINGS: There are low lung volumes. There is mild central pulmonary vascular congestion without ove rt edema. The heart remains mildly enlarged. No pneumothorax. No pleural effusions. IMPRESSION: Cardiomegaly with mild central pulmonary vascular congestion. This has slightly improved. Electronically signed by: Toi Maria M.D. 03/14/2019 10:56 AM
--- NOTE | 2019-03-14 11:28 | XRay Report ---
XR chest 1V portable CLINICAL HISTORY: Respiratory failure COMPARISON STUDY: 03/14/2019 FINDINGS: The heart remains enlarged. There are postsurgical changes of a midline sternotomy. There i s radiographic evidence of congestive failure/fluid overload. There has been interval placement of an endotracheal tube 39 mm above the daniela. IMPRESSION: 1. Interval placement of an endotracheal tube 39 mm above the daniela 2. Cardiomegaly and radiographic evidence of congestive failure/fluid overload Electronically signed by: Jered Hernández M.D. 03/14/2019 11:27 AM
[2019-03-14] MEDS: propofoL 1,000 MG/100 ML VIAL IV SCH ×2 (11:30→23:33)
[2019-03-14] MEDS ORDERED: PROPOFOL IV EMULSION 10 MG/ML 100 ML VIAL IV PRN (11:36)
[2019-03-14] MEDS ORDERED: ROCURONIUM BROMIDE 10 MG/ML 10 ML VIAL IV SCH (11:45)
[2019-03-14 12:06] LABS: BUN Creatinine Ratio 23.8 (10-20); Calcium 8.5 mg/dl (8.5-10.1); Creatinine Clr Calc Pharmacy 22.9 ml/min; Est GFR (African American) 20.9; Est GFR (Non-African American) 18.1; Magnesium 2.9 mg/dl (1.8-2.4); Potassium 5.1 mmol/L (3.5-5.1)
[2019-03-14] MEDS ORDERED: fentaNYL citrate 100 MCG/2 ML VIAL IV PRN (12:18)
[2019-03-14] MEDS ORDERED: ICU ELECTROLYTE REPLACEMENT PROTOCOL PRN (12:18)
[2019-03-14] MEDS ORDERED: ICU PROTOCOL FOR HYPERGLYCEMIA PRN (12:19)
--- NOTE | 2019-03-14 12:56 | Critical Care Consultation ---
Date of Consultation March 14, 2019 Assessment & Plan (1) Admitted to intensive care unit: Assessment and Plan: - Acute hypoxemic respiratory failure requiring mechanical ventilation - Acute diastolic heart failure - Acute kidney injury - Hyperkalemia Neurologic: Analgesics and sedation: Currently on propofol. Will initiate fentanyl drip and wean propofol as able. Delirium precautions Pulmonary: Ventilator/BiPAP settings: Pressure control with inspiratory pressure of 18. Target minute ventilation of approximately 8 L/min and tidal volume of 400 mL. He does have a significant leak and we will obtain another chest x-ray to rule out pneumothorax. He has bilateral breath sounds. I have increased his PEEP to 8 and degree of his his FiO2 to 60%. We will repeat a blood gas. Likely pulmonary edema secondary to heart failure Head of the bed elevated to 30 degrees if intubated Cardiovascular: We will continue with IV diuresis given his acute heart failure. Trend troponin and check EKG. Will hold Eliquis given that he is in acute renal failure. We will start him on a heparin drip. Hold his diltiazem given that he is in acute heart failure. Continue isosorbide mononitrate. Gastrointestinal: Bowel regimen if on analgesics: We will start senna docusate as needed OG tube in place Stress ulcer prophylaxis: Famotidine Renal: Likely cardiorenal. Hopefully will improve with diuresis. Infectious disease: No obvious signs of infection. UA is dirty. Leuk esterase and nitrates are negative. Hematologic: Anemia secondary to chronic disease. Endocrine: Pharmacy consult for diabetic management F/E/N: Hold fluids. Replace electrolytes PRN. Will hold on tube feeds for today. Lines and tubes: Peripheral IVs and the ET tube in place. VTE prophylaxis: Heparin drip CODE STATUS: Full code. Will discuss with family. Family at bedside: Not available at bedside. Disposition: Remain in the ICU I have personally spent 45 minutes of critical care time in the direct management of this patient. This is a life/limb threatening event. This includes time spent evaluating patient, direct bedside care, chart review, placing orders, interpretation of diagnostic studies, discussion with consultants, patient, and family members, as well as other required patient management activities. This time is exclusive of all separately billable procedures, and teaching time and separate from and in addition to any other critical care service time. Thank you for allowing us to participate in the care of this patient. (2) Acute diastolic heart failure: (3) Acute hypoxemic respiratory failure: (4) Acute kidney injury: (5) Hyperkalemia: (6) Lactic acidosis: History of Present Illness Reason for Consultation: Respiratory failure requiring mechanical ventilation Attending Physician: Praneeth Marquez MD History of Present Illness This is a 78-year-old male with a past medical history of ischemic heart disease with CABG x2 and recent left heart cath with nonocclusive coronary artery disease seen, chronic atrial fibrillation, aortic regurgitation, anemia chronic disease and anxiety who presented to the hospital with increasing shortness of breath. History is limited as the family is not readily available at this time in the room. Patient is unable to give any history given the fact that he is intubated. Apparently the patient has been complaining of increasing thirst and has had poor diet control as of late. He was noted to be in respiratory distress in the emergency department and was placed on BiPAP. He had increased work of breathing. I did speak with the hospitalist in person and and he noted that he put out about 400 mL's of urine after 40 mg of IV Lasix. Chest x-ray was done which demonstrated bilateral infiltrates. Due to worsening respiratory status and increased work of breathing, the patient was intubated emergently by the emergency department. On my examination, the patient was heavily sedated on exam. He has 5 mg of propofol running at this time. He does have a significant leak on the ventilator and and was getting 500 mL's tidal vo lumes but only returning about 350 mL tidal volumes. I did switch him to pressure control with a inspiratory pressure of 18 and we are getting tidal volumes of 400 mL. Increase his PEEP from 5-8 and dropped his FiO2 to 60%. Plateau pressures of approximately 23 cm H2O. Peak pressures are normal. We will get a blood gas in about half an hour. Patient is hemodynamically stable and not on any pressors. He had a recent cardiology visit with Dr. Trinidad on 02/07/2019. At that time he noted that she had chronic diastolic heart failure that was stable. He also noted stable aortic regurgitation and recommended a repeat echo in 1 to 2 years. Currently he is on normal saline at 125 mL an hour. He also received azithromycin and ceftriaxone. His procalcitonin was negative. His white count is negative. There is some anemia. Arterial blood gas on 4 L was 7.34/37/79. Initial lactate was 4.2. Initial potassium 5.8 which improved to 5.1. Creatinine is 3.15 with a baseline of approximately 1.5. INR is 1.5. Allergies Allergy/AdvReac Type Severity Reaction Status Date / Time No Known Drug Allergies Allergy Verified 03/14/19 07:10 Home Medications Home Medications Medication Instructions Recorded Confirmed Type Prilosec OTC 20 mg PO QAM 12/30/17 03/14/19 History atorvastatin 80 mg PO HS 12/30/17 03/14/19 History citalopram [Celexa] 20 mg PO HS 12/30/17 03/14/19 History aspirin [Aspir-81] 81 mg PO QAM 04/23/18 03/14/19 History diltiazem HCl 120 mg PO QAM #30 cap 11/13/18 03/14/19 Rx ferrous sulfate 325 mg PO BID #60 tab 11/13/18 03/14/19 Rx isosorbide mononitrate 30 mg PO QAM #30 tab 11/13/18 03/14/19 Rx nitroglycerin 0.4 mg SUBLINGUAL Q5M PRN #1 btl 11/13/18 03/14/19 Rx cyanocobalamin (vitamin B-12) 1,000 mcg PO PM 11/17/18 03/14/19 History apixaban 5 mg tablet 5 mg PO BID #60 tab 12/11/18 03/14/19 Rx lisinopril 10 mg tablet 10 mg PO DAILY 12/11/18 03/14/19 History furosemide 40 mg tablet 40 mg PO DAILY PRN #30 tab 02/07/19 03/14/19 Rx amoxicillin 500 mg PO TID 03/14/19 03/14/19 History metoprolol tartrate 0 mg PO BID 03/14/19 03/14/19 History Patient History Medical History A-fib (Chronic) Acute blood loss anemia 2/2 hematuria, had 2 units PRBCs during admission 02/28-03/03 Acute kidney injury (Acute) Admitted [facility] 01/05-01/09 for obstruction uropathy/EDUARDA. Readmitted 02/28-03/03 for hematuria/acute blood loss anemia. Anxiety (Chronic) CAD (coronary artery disease), [place] coronary artery Chronic diastolic CHF (congestive heart failure) Depression (Chronic) Elevated troponin (Resolved) Per discharge summary 01/09/18: "Likely because of EDUARDA , no ischemic concerns" Essential hypertension (Chronic) GERD (gastroesophageal reflux disease) (Chronic) Gross hematuria History of anesthesia reaction CONVULSIONS POST OP QUICK COMING AWAKE FROM CABG SURG 20 YRS AGO. DENIES SEIZURES, SAYS HE 'WOKE UP TOO QUICKLY' AND THEY PUT HIM BACK UNDER Hyperlipidemia Hypertension Indwelling Bernstein catheter present Obstructive uropathy (Acute) Caused EDUARDA, admitted [facility] 12/2017, discharged with Bernstein and then self- cathing. Caused injury self-cathing and was readmitted for blood loss. Surgical History H/O colonoscopy History of cardiac cath NO [facility]-20 YRS AGO History of cardioversion 2-3 YRS AGO [facility] History of coronary artery bypass graft 2 [facility] 20 YRS AGO[facility] S/P CABG x 2 Family History Brother Family history of esophageal cancer Other No pertinent family history Social History Preferred Language: Uzbek Communication Ability: Effective Visual Impairment: No Limitations Telemarketing Agent Required: No Beliefs That Will Affect Care: None marital status: Single Current Living Situation: Family Current Living Situation Comment: lives with son Other Information That Helps Us Care for You: No Feels Safe at Home: Yes Safety Concerns: Feels Safe At This Time Smoking Status: Never smoker Second Hand Exposure: No ; Hx Alcohol Use: No Hx Substance Use: No Review of Systems Review of Systems: Unobtainable due to reduced consciousness Physical Exam Constitutional: Patient is intubated and sedated. He appears comfortable on the vent. There is no ventilator dyssynchrony. Vital signs stable. Eyes: PERRL, conjunctivae normal, anicteric sclerae ENMT: ET tube in place. Size 7.5. No obvious cuff leak heard. Neck: trachea midline, no thyromegaly Respiratory: Slightly diminished on the left. Coarse breath sounds on the ventilator. No obvious rales. Cardiovascular: Regular rhythm. Regular rate. Mild diastolic flow murmur. 1-2+ pitting edema bilaterally. Gastrointestinal (Abdomen): normal bowel sounds, soft, nontender, no hepatosplenomegaly Musculoskeletal: no cyanosis or clubbing, extremities motor strength 5/5 Neurologic: Difficult to assess given the fact that he is intubated. He is he avily sedated. Results & Data Vital Signs (Past 12 Hours) Vital Signs Temp Pulse Resp BP Pulse Ox Pulse Ox 03/14/19 12:30 65 131/70 92 03/14/19 12:19 94 03/14/19 12:18 98.6 F 66 140/71 96 03/14/19 11:40 68 14 143/72 H 96 03/14/19 11:35 70 14 138/77 96 03/14/19 11:30 68 16 133/86 96 03/14/19 11:29 23 03/14/19 11:25 65 14 135/75 94 03/14/19 11:20 71 15 135/80 92 03/14/19 11:15 71 24 112/67 80 L 03/14/19 11:12 57 L 28 H 121/97 99 03/14/19 11:01 60 25 H 129/69 97 03/14/19 09:49 63 21 124/68 100 03/14/19 09:16 27 H 127/78 99 03/14/19 09:10 26 H 99 03/14/19 08:45 57 L 27 H 100 03/14/19 08:30 65 20 100 03/14/19 08:26 100 03/14/19 08:15 59 L 29 H 121/68 99 03/14/19 08:01 53 L 27 H 103/59 L 98 03/14/19 07:46 40 L 30 H 92/64 L 99 03/14/19 07:43 55 L 25 H 112/60 100 03/14/19 07:30 55 L 28 H 99 03/14/19 07:27 55 L 26 H 98 03/14/19 07:00 51 L 31 H 93 03/14/19 06:26 97.5 F L 52 L 24 107/69 82 L I did personally review his pertinent labs, chest imaging and recent notes. Coding Level of Care Code Critical Care 1st 30-74 mins Diagnoses Admitted to intensive care unit Z78.9 Acute diastolic heart failure I50.31 Acute hypoxemic respiratory failure J96.01 Acute kidney injury N17.9 Hyperkalemia E87.5 Lactic acidosis E87.2 Time Spent (min) 45
[2019-03-14 13:06] LABS: Estimated Average Glucose 105 mg/dl; Hemoglobin A1C 5.3 % (4.5-5.6)
[2019-03-14 13:14] LABS: Alanine Aminotransferase 273 U/L (12-78); Albumin Level 3.5 gm/dl (3.4-5.0); Alkaline Phosphatase 122 U/L (45-117); Aspartate Aminotransferase 365 U/L (15-37); Bilirubin Direct 0.2 mg/dl (0-0.2); Bilirubin,Total 0.5 mg/dl (0.2-1); Total Protein 7.2 gm/dl (6.4-8.2); Troponin I < 0.015 ng/ml (0-0.045)
--- NOTE | 2019-03-14 13:17 | XRay Report ---
XR KUB/Abdomen 1 view CLINICAL HISTORY: rule out ptx tube position COMPARISON STUDY: No previous studies for comparison. FINDINGS: Nasogastric tube within the gastric antrum. Nonobstructive bowel pattern. IMPRESSION: Nasogastric tube within the gastric antrum. The above report was generated using voice recognition software. It may contain grammatical, syntax or spelling errors. Electronically signed by: Guicho Henriquez M.D. 03/14/2019 1:15 PM
--- NOTE | 2019-03-14 13:21 | XRay Report ---
XR chest 1V portable CLINICAL HISTORY: NGT placement COMPARISON STUDY: Chest radiograph March 14, 2019 11:18 AM. FINDINGS: The tip of the nasogastric tube is demonstrated on the KUB and shown to be within the gastr ic antrum. Tip of endotracheal tube is 4.7 cm above the daniela. There is no pneumothorax. There is pu lmonary vascular congestion with possible mild pulmonary edema. Cardiomegaly is noted. There are mild bibasilar opacities. Lung volumes are diminished. No pleural effusion is visualized. IMPRESSION: 1. Tip of nasogastric tube demonstrated on the KUB to be within the gastric antrum. 2. Tip of endotracheal tube 4.7 cm above the daniela. 3. Pulmonary vascular congestion with possible mild pulmonary edema. 4. Low lung volumes with bibasilar opacities. Electronically signed by: Ortega Dsouza M.D. 03/14/2019 1:20 PM
[2019-03-14] MEDS: fentaNYL DRIP 1,250 MCG/250 ML BAG IV SCH (13:25)
[2019-03-14 13:32] LABS: iSTAT Allen Test Pass; iSTAT Arterial Blood Gas HCO3 21 meg/L (19-24); iSTAT Arterial Blood Gas pCO2 33 mmHg (35-46); iSTAT Arterial Blood Gas pO2 76 mmHg (80-95); iSTAT Carbon Dioxide 22 mEq/l (24-31); iSTAT FiO2 60 %; iSTAT Site R Radial
[2019-03-14] MEDS ORDERED: FENTANYL BOLUS FROM BAG IV ONE (13:39)
[2019-03-14] MEDS: Heparin IV Standard *NO* Bolus IV SCH ×2 (13:58→14:36)
[2019-03-14] MEDS: HEPARIN SODIUM/DEXTROSE 25,000 UNITS/500 ML BAG IV SCH (13:59)
--- NOTE | 2019-03-14 16:08 | Billing Data ---
Date of Service March 14, 2019 Coding Level of Care Code 28564 Initial Inpt Care Lvl 3
[2019-03-14] MEDS: FUROSEMIDE 40 MG in SYRINGE 0 ML IV SCH (16:31)
[2019-03-14 16:45] LABS: Creatine Kinase 73 U/L (39-308); Lipase 144 U/L (73-393)
[2019-03-14] MEDS ORDERED: FUROSEMIDE 40 MG/4 ML VIAL IV SCH (17:00)
--- NOTE | 2019-03-14 17:21 | Ultrasound Report ---
US liver CLINICAL HISTORY: Transaminitis. COMPARISON STUDY: CT of the abdomen and pelvis March 01, 2018. FINDINGS: This exam is mildly compromised by suboptimal penetration and patient's inability to suspen d respiration. There is apparent nodularity of the liver surface. This raises the possibility of helga y cirrhosis. There is no biliary ductal dilatation. The common bile duct measures 4 mm in caliber. No gallstones are noted. There is mild gallbladder wall thickening and gallbladder distention. Sonograp hic Bradshaw sign could not be assessed for in this patient due to intubation. Main portal vein is chen nt with hepatopedal flow. There is no right hydronephrosis. A 2.4 cm right renal cyst is noted. A sma ll right pleural effusion is incidentally noted. IMPRESSION: 1. Mild nodularity liver surface which raises the possibility of cirrhosis. 2. No gallstones or biliary ductal dilatation. 3. Nonspecific mild gallbladder wall thickening and distention. No pericholecystic fluid. 4. Small right pleural effusion. Electronically signed by: Ortega Dsouza M.D. 03/14/2019 5:20 PM
[2019-03-14 19:00] LABS: BUN Creatinine Ratio 24.7 (10-20); Blood Urea Nitrogen 65 mg/dl (7-18); Carbon Dioxide 24 mmol/L (21-32); Chloride 110 mmol/L (98-107); Creatinine Clr Calc Pharmacy 27.2 ml/min; Est GFR (African American) 25.8; Est GFR (Non-African American) 22.2; Glucose 93 mg/dl (70-99); Potassium 3.8 mmol/L (3.5-5.1); Sodium 141 mmol/L (136-145); Troponin I < 0.015 ng/ml (0-0.045)
[2019-03-14 20:35] LABS: Partial Thromboplastin Ratio 2.3
[2019-03-14 20:40] LABS: Partial Thromboplastin Time 62.6 Seconds (21.0-31.0)
[2019-03-14] MEDS ORDERED: APIXABAN 5 MG TABLET PO SCH (21:00)
[2019-03-14] MEDS ORDERED: CITALOPRAM 20 MG TAB PO SCH (21:00)
[2019-03-14] MEDS: FERROUS SULFATE 325 MG TAB PO SCH (21:04)
[2019-03-14] MEDS: ATORVASTATIN 40 MG TAB PO SCH (21:04)
[2019-03-14] MEDS: CYANOCOBALAMIN 500 MCG TABLET (VITAMIN B-12) PO SCH (21:04)
[2019-03-15] MEDS: FAMOTIDINE 20 MG in SYRINGE 3 ML IV SCH ×3 (03:53→21:04)
[2019-03-15] MEDS: HEPARIN SODIUM/DEXTROSE 25,000 UNITS/500 ML BAG IV SCH ×2 (03:55→16:30)
[2019-03-15 05:12] LABS: Basophils # (auto) 0.06 K/uL (0-0.2); Basophils % (auto) 0.7 %; Eosinophils # (auto) 0.25 K/uL (0-0.5); Eosinophils % (auto) 2.8 %; Hematocrit (blood only) 36.2 % (42-52); Hemoglobin 11.7 g/dL (14.0-18.0); Immature Granulocytes # (auto) 0.02 K/uL (0.00-0.02); Immature Granulocytes % (auto) 0.2 %; Lymphocytes # (auto) 1.45 K/uL (1.2-3.4); Lymphocytes % (auto) 16.3 %; Mean Corpuscular Hemoglobin 33.4 pg (25-34); Mean Corpuscular Hgb Conc 32.3 g/dL (32-36); Mean Corpuscular Volume 103.4 fL (80-100); Mean Platelet Volume 9.4 fL (7.4-10.4); Monocytes # (auto) 1.02 K/uL (0.11-0.59); Monocytes % (auto) 11.4 %; Neutrophils # (auto) 6.11 K/uL (1.4-6.5); Neutrophils % (auto) 68.6 %; Platelet Count 236 K/uL (130-400); RDW Coefficient of Variation 16.8 % (11.5-14.5); RDW Standard Deviation 61.3 fL (36.4-46.3); White Blood Count 8.91 K/uL (4.8-10.8)
[2019-03-15 05:35] LABS: iSTAT Allen Test Pass; iSTAT Arterial Blood Gas HCO3 25 meg/L (19-24); iSTAT Arterial Blood Gas pCO2 36 mmHg (35-46); iSTAT Arterial Blood Gas pH 7.45 (7.35-7.45); iSTAT Arterial Blood Gas pO2 79 mmHg (80-95); iSTAT Carbon Dioxide 26 mEq/l (24-31); iSTAT FiO2 50 %; iSTAT Site R Radial
[2019-03-15 05:35] LABS: Albumin Level 3.3 gm/dl (3.4-5.0); BUN Creatinine Ratio 24.4 (10-20); Calcium 8.3 mg/dl (8.5-10.1); Creatinine Clr Calc Pharmacy 30.5 ml/min; Est GFR (African American) 29.7; Est GFR (Non-African American) 25.6; Magnesium 2.8 mg/dl (1.8-2.4); Potassium 3.9 mmol/L (3.5-5.1)
[2019-03-15 05:41] LABS: Albumin Globulin Ratio 0.8 (0.9-2); Bilirubin,Total 0.5 mg/dl (0.2-1); Phosphorus 4.1 mg/dl (2.5-4.9); Total Protein 7.3 gm/dl (6.4-8.2)
[2019-03-15 05:46] LABS: INR 1.3 (0.9-1.1); Partial Thromboplastin Ratio 3.1; Prothrombin Time 13.5 Seconds (9.0-12.0)
[2019-03-15] MEDS: fentaNYL DRIP 1,250 MCG/250 ML BAG IV SCH ×2 (06:14→10:15)
[2019-03-15 06:16] LABS: Partial Thromboplastin Time 83.3 Seconds (21.0-31.0)
--- NOTE | 2019-03-15 07:24 | XRay Report ---
XR chest 1V portable CLINICAL HISTORY: post diuresis COMPARISON STUDY: Chest radiograph March 14, 2019 2:00 PM. FINDINGS: Tip of endotracheal tube is 3.7 cm above the daniela. Tip of nasogastric tube is below the l ower aspect of this image but at least within the distal body of the stomach. Lung volumes are dimini shed. There is persistent interstitial thickening with suggestion of pulmonary edema. There are small bilateral pleural effusions with no pneumothorax. Lung volumes are diminished. There are median ster notomy wires. Cardiomegaly is unchanged. IMPRESSION: 1. Mild pulmonary edema, slightly improved since prior exam. 2. Low lung volumes. 3. Small bilateral pleural effusions. 4. Satisfactory positioning of the endotracheal tube. Electronically signed by: Ortega Dsouza M.D. 03/15/2019 7:22 AM
--- NOTE | 2019-03-15 07:49 | Critical Care Progress Note ---
Date of Service March 15, 2019 Assessment & Plan (1) Admitted to intensive care unit: - Acute hypoxemic respiratory failure requiring mechanical ventilation - Acute diastolic heart failure - Acute kidney injury - Hyperkalemia Neurologic: Analgesics and sedation: dc in preparation for vent wean Delirium precautions Pulmonary: Acute hypoxemic respiratory failure requiring mechanical ventilation Thought to be secondary to severe CHF and volume overloaded status. Patient was initially placed on the ventilator, he did well overnight. We will plan to wean from ventilator today. -Wean from vent -CPAP when sleeping Cardiovascular: We will continue with IV diuresis given his acute heart failure. -troponin neg -hold Eliquis given that he is in acute renal failure. -continue heparin drip -Hold his diltiazem given that he is in acute heart failure. -Continue isosorbide mononitrate. Gastrointestinal: Bowel regimen if on analgesics: We will start senna docusate as needed Stress ulcer prophylaxis: protnix bid Renal: Likely cardiorenal. improving with diuresis Infectious disease: No obvious signs of infection. UA is dirty. Leuk esterase and nitrates are negative. Hematologic: Anemia secondary to chronic disease. Endocrine: Pharmacy consult for diabetic management F/E/N: Hold fluids. Replace electrolytes PRN. Will hold on tube feeds for today. Lines and tubes: Peripheral IVs and the ET tube in place. VTE prophylaxis: Heparin drip CODE STATUS: Full code. Will discuss with family. (2) Chronic diastolic CHF (congestive heart failure): (3) Acute respiratory failure with hypoxia: (4) AMS (altered mental status): (5) Acute on chronic renal insufficiency: (6) Hyperkalemia: (7) Hyperphosphatemia: (8) Hypomagnesemia: (9) Transaminitis: (10) Hypertension: (11) Hyperlipidemia: (12) CAD (coronary artery disease), [place] coronary artery: (13) Aortic regurgitation: (14) Chronic atrial fibrillation: (15) Iron deficiency anemia: (16) Anxiety: (17) Depression: (18) GERD (gastroesophageal reflux disease): Supervising Physician Co-Signing Physician Notes Dr. Hope was the resident-physician during care of patient. I separately evaluated patient for concepcion portions of the history and the exam. I was present during the critical portion of medical decision making, and I discussed the case with the resident. I generally agree with the findings and plan except for any additions/exceptions noted. Patient was extubated today and is doing well on supplemental oxygen. We are continue to diurese him. His creatinine is improving. He has no obvious signs of infection and thus antibiotics were discontinued yesterday. He did have some blood tinge to his NG tube and we have added on Protonix. He is on a heparin drip given his atrial fibrillation. His hemoglobin has been stable. He likely has sleep disordered breathing. Will order for CPAP to be used while sleeping. Needs PSG as outpatient. He can likely be transferred to the floor later today or early tomorrow.. I have personally spent 35 minutes of critical care time in the direct management of this patient. This is a life/limb threatening event. This includes time spent evaluating patient, direct bedside care, chart review, placing orders, interpretation of diagnostic studies, discussion with consultants, patient, and/or family members regarding treatment decisions, as well as other required patient management activities. This time is exclusive of all separately billable procedures, and teaching time and separate from and in addition to any other critical care service time. Subjective Patient laying in bed this morning comfortably intubated. Overnight there was a slight tinge of red blood from his OG tube patient was started on twice daily famotidine and subsequently transitioned to twice daily Protonix. Otherwise patient continues to do well, respiratory status is improving. He has a Bernstein in place and making good urine, stooling, sleeping, has been n.p.o. as he is intubated. Plan to wean from intubation later today. No acute concerns at present, all questions answered. Physical Exam Physical Exam: Constitutional: Patient is intubated He appears comfortable on the vent. There is no ventilator dyssynchrony. Vital signs stable. Eyes: PERRL, conjunctivae normal, anicteric sclerae ENMT: ET tube in place. Size 7.5. No obvious cuff leak heard. Neck: trachea midline, no thyromegaly Respiratory: Slightly diminished on the left. Coarse breath sounds on the ventilator. No obvious rales. Cardiovascular: Regular rhythm. Regular rate. Mild diastolic flow murmur. 1- 2+ pitting edema bilaterally. Gastrointestinal (Abdomen): normal bowel sounds, soft, nontender, no hepatosplenomegaly Musculoskeletal: no cyanosis or clubbing, extremities motor strength 5/5 Neurologic: Difficult to assess given the fact that he is intubated. Results & Data Vital Signs (Past 12 Hours) Vital Signs Temp Pulse Resp BP Pulse Ox 03/15/19 07:21 66 15 96 03/15/19 06:00 63 114/54 L 97 03/15/19 05:00 62 18 119/60 95 03/15/19 04:30 66 15 99 03/15/19 04:00 37.1 C 60 20 124/56 L 97 03/15/19 03:29 60 109/49 L 96 03/15/19 03:00 61 96 03/15/19 02:00 58 L 100/52 L 96 03/15/19 01:00 61 107/51 L 96 03/15/19 00:26 58 L 16 96 03/15/19 00:00 36.8 C 61 16 113/49 L 96 03/14/19 23:00 59 L 105/50 L 96 03/14/19 22:00 60 114/51 L 96 03/14/19 21:19 58 L 109/52 L 96 03/14/19 21:00 56 L 107/47 L 97 03/14/19 20:25 55 L 17 95 03/14/19 20:00 36.7 C 60 110/55 L 95 Laboratory Results 03/15/19 03/15/19 03/15/19 Range/Units 11:01 10:05 05:22 WBC (4.8-10.8) K/uL RBC (4.7-6.1) M/uL Hgb (14.0-18.0) g/dL Hct (42-52) % MCV (80-100) fL MCH (25-34) pg MCHC (32-36) g/dL RDW Std Deviation (36.4-46.3) fL RDW Coeff of Marilynn (11.5-14.5) % Plt Count (130-400) K/uL MPV (7.4-10.4) fL Immature Gran % (Auto) % Neut % (Auto) % Lymph % (Auto) % [place] % (Auto) % Eos % (Auto) % Baso % (Auto) % Immature Gran # (Auto) (0.00-0.02) K/uL Neut # (Auto) (1.4-6.5) K/uL Lymph # (Auto) (1.2-3.4) K/uL [place] # (Auto) (0.11-0.59) K/uL Eos # (Auto) (0-0.5) K/uL Baso # (Auto) (0-0.2) K/uL PT (9.0-12.0) Seconds INR (0.9-1.1) APTT (21.0-31.0) Seconds PTT Ratio Sample Site R Radial POC pH 7.45 (7.35-7.45) POC pCO2 36 (35-46) mmHg POC pO2 79 L (80-95) mmHg POC HCO3 25 H (19-24) izabel/L POC Total CO2 26 (24-31) mEq/l POC Base Excess 1.0 (-9-1.8) izabel/L POC ABG O2 Sat 96.0 H (90-95) % Billy Test Pass O2 Delivery Device Ventilator POC O2 Rate 14 POC FiO2 50 % PEEP 8 Sodium (136-145) mmol/L Potassium (3.5-5.1) mmol/L Chloride (98-107) mmol/L Carbon Dioxide (21-32) mmol/L Anion Gap (3-11) BUN (7-18) mg/dl Creatinine (0.6-1.4) mg/dl Est Cr Clr Drug Dosing ml/min Est GFR ( Amer) Est GFR (Non-Af Amer) BUN/Creatinine Ratio (10-20) Glucose (70-99) mg/dl POC Glucose 108 H (70-99) Estimat Average Glucose mg/dl Hemoglobin A1c (4.5-5.6) % Lactate (0.4-2.0) mmol/L Calcium (8.5-10.1) mg/dl Phosphorus (2.5-4.9) mg/dl Magnesium (1.8-2.4) mg/dl Total Bilirubin 0.6 (0.2-1) mg/dl Direct Bilirubin 0.2 (0-0.2) mg/dl AST 287 H (15-37) U/L ALT 340 H (12-78) U/L Alkaline Phosphatase 123 H (45-117) U/L Total Creatine Kinase (39-308) U/L Troponin I (0-0.045) ng/ml Total Protein 7.3 (6.4-8.2) gm/dl Albumin 3.4 (3.4-5.0) gm/dl Globulin (2.5-4.0) gm/dl Albumin/Globulin Ratio (0.9-2) Lipase (73-393) U/L Nasal Screen MRSA (PCR) (Negative) Acetaminophen (10-30) ug/ml 03/15/19 03/15/19 03/15/19 Range/Units 04:40 04:40 04:40 WBC 8.91 (4.8-10.8) K/uL RBC 3.50 L (4.7-6.1) M/uL Hgb 11.7 L (14.0-18.0) g/dL Hct 36.2 L (42-52) % MCV 103.4 H (80-100) fL MCH 33.4 (25-34) pg MCHC 32.3 (32-36) g/dL RDW Std Deviation 61.3 H (36.4-46.3) fL RDW Coeff of Marilynn 16.8 H (11.5-14.5) % Plt Count 236 (130-400) K/uL MPV 9.4 (7.4-10.4) fL Immature Gran % (Auto) 0.2 % Neut % (Auto) 68.6 % Lymph % (Auto) 16.3 % [place] % (Auto) 11.4 % Eos % (Auto) 2.8 % Baso % (Auto) 0.7 % Immature Gran # (Auto) 0.02 (0.00-0.02) K/uL Neut # (Auto) 6.11 (1.4-6.5) K/uL Lymph # (Auto) 1.45 (1.2-3.4) K/uL [place] # (Auto) 1.02 H (0.11-0.59) K/uL Eos # (Auto) 0.25 (0-0.5) K/uL Baso # (Auto) 0.06 (0-0.2) K/uL PT 13.5 H (9.0-12.0) Seconds INR 1.3 H (0.9-1.1) APTT 83.3 H* (21.0-31.0) Seconds PTT Ratio 3.1 Sample Site POC pH (7.35-7.45) POC pCO2 (35-46) mmHg POC pO2 (80-95) mmHg POC HCO3 (19-24) izabel/L POC Total CO2 (24-31) mEq/l POC Base Excess (-9-1.8) izabel/L POC ABG O2 Sat (90-95) % Billy Test O2 Delivery Device POC O2 Rate POC FiO2 % PEEP Sodium 141 (136-145) mmol/L Potassium 3.9 (3.5-5.1) mmol/L Chloride 110 H (98-107) mmol/L Carbon Dioxide 25 (21-32) mmol/L Anion Gap 6.0 (3-11) BUN 58 H (7-18) mg/dl Creatinine 2.36 H (0.6-1.4) mg/dl Est Cr Clr Drug Dosing 30.5 ml/min Est GFR ( Amer) 29.7 Est GFR (Non-Af Amer) 25.6 BUN/Creatinine Ratio 24.4 H (10-20) Glucose 93 (70-99) mg/dl POC Glucose (70-99) Estimat Average Glucose mg/dl Hemoglobin A1c (4.5-5.6) % Lactate (0.4-2.0) mmol/L Calcium 8.3 L (8.5-10.1) mg/dl Phosphorus 4.1 D (2.5-4.9) mg/dl Magnesium 2.8 H (1.8-2.4) mg/dl Total Bilirubin 0.5 (0.2-1) mg/dl Direct Bilirubin (0-0.2) mg/dl AST 291 H (15-37) U/L ALT 307 H (12-78) U/L Alkaline Phosphatase 114 (45-117) U/L Total Creatine Kinase (39-308) U/L Troponin I (0-0.045) ng/ml Total Protein 7.3 (6.4-8.2) gm/dl Albumin 3.3 L (3.4-5.0) gm/dl Globulin 4.0 (2.5-4.0) gm/dl Albumin/Globulin Ratio 0.8 L (0.9-2) Lipase (73-393) U/L Nasal Screen MRSA (PCR) (Negative) Acetaminophen (10-30) ug/ml 03/15/19 03/14/19 03/14/19 Range/Units 00:29 20:01 18:10 WBC (4.8-10.8) K/uL RBC (4.7-6.1) M/uL Hgb (14.0-18.0) g/dL Hct (42-52) % MCV (80-100) fL MCH (25-34) pg MCHC (32-36) g/dL RDW Std Deviation (36.4-46.3) fL RDW Coeff of Marilynn (11.5-14.5) % Plt Count (130-400) K/uL MPV (7.4-10.4) fL Immature Gran % (Auto) % Neut % (Auto) % Lymph % (Auto) % [place] % (Auto) % Eos % (Auto) % Baso % (Auto) % Immature Gran # (Auto) (0.00-0.02) K/uL Neut # (Auto) (1.4-6.5) K/uL Lymph # (Auto) (1.2-3.4) K/uL [place] # (Auto) (0.11-0.59) K/uL Eos # (Auto) (0-0.5) K/uL Baso # (Auto) (0-0.2) K/uL PT (9.0-12.0) Seconds INR (0.9-1.1) APTT 62.6 H* (21.0-31.0) Seconds PTT Ratio 2.3 Sample Site POC pH (7.35-7.45) POC pCO2 (35-46) mmHg POC pO2 (80-95) mmHg POC HCO3 (19-24) izabel/L POC Total CO2 (24-31) mEq/l POC Base Excess (-9-1.8) izabel/L POC ABG O2 Sat (90-95) % Billy Test O2 Delivery Device POC O2 Rate POC FiO2 % PEEP Sodium 141 (136-145) mmol/L Potassium 3.8 D (3.5-5.1) mmol/L Chloride 110 H (98-107) mmol/L Carbon Dioxide 24 (21-32) mmol/L Anion Gap 7.0 (3-11) BUN 65 H (7-18) mg/dl Creatinine 2.65 H D (0.6-1.4) mg/dl Est Cr Clr Drug Dosing 27.2 ml/min Est GFR ( Amer) 25.8 Est GFR (Non-Af Amer) 22.2 BUN/Creatinine Ratio 24.7 H (10-20) Glucose 93 (70-99) mg/dl POC Glucose (70-99) Estimat Average Glucose mg/dl Hemoglobin A1c (4.5-5.6) % Lactate (0.4-2.0) mmol/L Calcium 8.0 L (8.5-10.1) mg/dl Phosphorus (2.5-4.9) mg/dl Magnesium (1.8-2.4) mg/dl Total Bilirubin (0.2-1) mg/dl Direct Bilirubin (0-0.2) mg/dl AST (15-37) U/L ALT (12-78) U/L Alkaline Phosphatase (45-117) U/L Total Creatine Kinase (39-308) U/L Troponin I < 0.015 < 0.015 (0-0.045) ng/ml Total Protein (6.4-8.2) gm/dl Albumin (3.4-5.0) gm/dl Globulin (2.5-4.0) gm/dl Albumin/Globulin Ratio (0.9-2) Lipase (73-393) U/L Nasal Screen MRSA (PCR) (Negative) Acetaminophen (10-30) ug/ml 03/14/19 03/14/19 03/14/19 Range/Units 16:13 16:13 13:18 WBC (4.8-10.8) K/uL RBC (4.7-6.1) M/uL Hgb (14.0-18.0) g/dL Hct (42-52) % MCV (80-100) fL MCH (25-34) pg MCHC (32-36) g/dL RDW Std Deviation (36.4-46.3) fL RDW Coeff of Marilynn (11.5-14.5) % Plt Count (130-400) K/uL MPV (7.4-10.4) fL Immature Gran % (Auto) % Neut % (Auto) % Lymph % (Auto) % [place] % (Auto) % Eos % (Auto) % Baso % (Auto) % Immature Gran # (Auto) (0.00-0.02) K/uL Neut # (Auto) (1.4-6.5) K/uL Lymph # (Auto) (1.2-3.4) K/uL [place] # (Auto) (0.11-0.59) K/uL Eos # (Auto) (0-0.5) K/uL Baso # (Auto) (0-0.2) K/uL PT (9.0-12.0) Seconds INR (0.9-1.1) APTT (21.0-31.0) Seconds PTT Ratio Sample Site R Radial POC pH 7.40 (7.35-7.45) POC pCO2 33 L (35-46) mmHg POC pO2 76 L (80-95) mmHg POC HCO3 21 (19-24) izabel/L POC Total CO2 22 L (24-31) mEq/l POC Base Excess -4.0 (-9-1.8) izabel/L POC ABG O2 Sat 95.0 (90-95) % Billy Test Pass O2 Delivery Device Ventilator POC O2 Rate 14 POC FiO2 60 % PEEP 8 Sodium (136-145) mmol/L Potassium (3.5-5.1) mmol/L Chloride (98-107) mmol/L Carbon Dioxide (21-32) mmol/L Anion Gap (3-11) BUN (7-18) mg/dl Creatinine (0.6-1.4) mg/dl Est Cr Clr Drug Dosing ml/min Est GFR ( Amer) Est GFR (Non-Af Amer) BUN/Creatinine Ratio (10-20) Glucose (70-99) mg/dl POC Glucose (70-99) Estimat Average Glucose mg/dl Hemoglobin A1c (4.5-5.6) % Lactate (0.4-2.0) mmol/L Calcium (8.5-10.1) mg/dl Phosphorus (2.5-4.9) mg/dl Magnesium (1.8-2.4) mg/dl Total Bilirubin (0.2-1) mg/dl Direct Bilirubin (0-0.2) mg/dl AST (15-37) U/L ALT (12-78) U/L Alkaline Phosphatase (45-117) U/L Total Creatine Kinase 73 (39-308) U/L Troponin I (0-0.045) ng/ml Total Protein (6.4-8.2) gm/dl Albumin (3.4-5.0) gm/dl Globulin (2.5-4.0) gm/dl Albumin/Globulin Ratio (0.9-2) Lipase 144 (73-393) U/L Nasal Screen MRSA (PCR) (Negative) Acetaminophen 4 L (10-30) ug/ml 03/14/19 03/14/19 03/14/19 Range/Units 12:39 12:39 12:39 WBC (4.8-10.8) K/uL RBC (4.7-6.1) M/uL Hgb (14.0-18.0) g/dL Hct (42-52) % MCV (80-100) fL MCH (25-34) pg MCHC (32-36) g/dL RDW Std Deviation (36.4-46.3) fL RDW Coeff of Marilynn (11.5-14.5) % Plt Count (130-400) K/uL MPV (7.4-10.4) fL Immature Gran % (Auto) % Neut % (Auto) % Lymph % (Auto) % [place] % (Auto) % Eos % (Auto) % Baso % (Auto) % Immature Gran # (Auto) (0.00-0.02) K/uL Neut # (Auto) (1.4-6.5) K/uL Lymph # (Auto) (1.2-3.4) K/uL [place] # (Auto) (0.11-0.59) K/uL Eos # (Auto) (0-0.5) K/uL Baso # (Auto) (0-0.2) K/uL PT (9.0-12.0) Seconds INR (0.9-1.1) APTT (21.0-31.0) Seconds PTT Ratio Sample Site POC pH (7.35-7.45) POC pCO2 (35-46) mmHg POC pO2 (80-95) mmHg POC HCO3 (19-24) izabel/L POC Total CO2 (24-31) mEq/l POC Base Excess (-9-1.8) izabel/L POC ABG O2 Sat (90-95) % Billy Test O2 Delivery Device POC O2 Rate POC FiO2 % PEEP Sodium (136-145) mmol/L Potassium (3.5-5.1) mmol/L Chloride (98-107) mmol/L Carbon Dioxide (21-32) mmol/L Anion Gap (3-11) BUN (7-18) mg/dl Creatinine (0.6-1.4) mg/dl Est Cr Clr Drug Dosing ml/min Est GFR ( Amer) Est GFR (Non-Af Amer) BUN/Creatinine Ratio (10-20) Glucose (70-99) mg/dl POC Glucose (70-99) Estimat Average Glucose 105 mg/dl Hemoglobin A1c 5.3 (4.5-5.6) % Lactate 1.0 (0.4-2.0) mmol/L Calcium (8.5-10.1) mg/dl Phosphorus (2.5-4.9) mg/dl Magnesium (1.8-2.4) mg/dl Total Bilirubin 0.5 (0.2-1) mg/dl Direct Bilirubin 0.2 (0-0.2) mg/dl AST 365 H (15-37) U/L ALT 273 H (12-78) U/L Alkaline Phosphatase 122 H (45-117) U/L Total Creatine Kinase (39-308) U/L Troponin I < 0.015 (0-0.045) ng/ml Total Protein 7.2 (6.4-8.2) gm/dl Albumin 3.5 (3.4-5.0) gm/dl Globulin (2.5-4.0) gm/dl Albumin/Globulin Ratio (0.9-2) Lipase (73-393) U/L Nasal Screen MRSA (PCR) (Negative) Acetaminophen (10-30) ug/ml 03/14/19 Range/Units 12:00 WBC (4.8-10.8) K/uL RBC (4.7-6.1) M/uL Hgb (14.0-18.0) g/dL Hct (42-52) % MCV (80-100) fL MCH (25-34) pg MCHC (32-36) g/dL RDW Std Deviation (36.4-46.3) fL RDW Coeff of Marilynn (11.5-14.5) % Plt Count (130-400) K/uL MPV (7.4-10.4) fL Immature Gran % (Auto) % Neut % (Auto) % Lymph % (Auto) % [place] % (Auto) % Eos % (Auto) % Baso % (Auto) % Immature Gran # (Auto) (0.00-0.02) K/uL Neut # (Auto) (1.4-6.5) K/uL Lymph # (Auto) (1.2-3.4) K/uL [place] # (Auto) (0.11-0.59) K/uL Eos # (Auto) (0-0.5) K/uL Baso # (Auto) (0-0.2) K/uL PT (9.0-12.0) Seconds INR (0.9-1.1) APTT (21.0-31.0) Seconds PTT Ratio Sample Site POC pH (7.35-7.45) POC pCO2 (35-46) mmHg POC pO2 (80-95) mmHg POC HCO3 (19-24) izabel/L POC Total CO2 (24-31) mEq/l POC Base Excess (-9-1.8) izabel/L POC ABG O2 Sat (90-95) % Billy Test O2 Delivery Device POC O2 Rate POC FiO2 % PEEP Sodium (136-145) mmol/L Potassium (3.5-5.1) mmol/L Chloride (98-107) mmol/L Carbon Dioxide (21-32) mmol/L Anion Gap (3-11) BUN (7-18) mg/dl Creatinine (0.6-1.4) mg/dl Est Cr Clr Drug Dosing ml/min Est GFR ( Amer) Est GFR (Non-Af Amer) BUN/Creatinine Ratio (10-20) Glucose (70-99) mg/dl POC Glucose (70-99) Estimat Average Glucose mg/dl Hemoglobin A1c (4.5-5.6) % Lactate (0.4-2.0) mmol/L Calcium (8.5-10.1) mg/dl Phosphorus (2.5-4.9) mg/dl Magnesium (1.8-2.4) mg/dl Total Bilirubin (0.2-1) mg/dl Direct Bilirubin (0-0.2) mg/dl AST (15-37) U/L ALT (12-78) U/L Alkaline Phosphatase (45-117) U/L Total Creatine Kinase (39-308) U/L Troponin I (0-0.045) ng/ml Total Protein (6.4-8.2) gm/dl Albumin (3.4-5.0) gm/dl Globulin (2.5-4.0) gm/dl Albumin/Globulin Ratio (0.9-2) Lipase (73-393) U/L Nasal Screen MRSA (PCR) Negative (Negative) Acetaminophen (10-30) ug/ml Medications Administered Current Inpatient Medications Aspirin (Ecotrin Ectab) 81 mg PO QAM [facility] Stop: 04/14/19 08:59 Last Admin: 03/15/19 09:04 Dose: Not Given Documented by: Atorvastatin Calcium (Lipitor) 80 mg PO HS [facility] Stop: 04/13/19 20:59 Last Admin: 03/14/19 21:04 Dose: 80 mg Documented by: Cyanocobalamin (Vitamin B-12) 1,000 mcg PO PM [facility] Stop: 04/13/19 20:59 Last Admin: 03/14/19 21:04 Dose: 1,000 mcg Documented by: Fentanyl Citrate (Fentanyl Citrate) 25 mcg IV ONE PRN PRN Reason: Pain Not Controlled by Drip Stop: 03/28/19 12:17 Ferrous Sulfate (Feosol) 325 mg PO BID [facility] Stop: 04/13/19 20:59 Last Admin: 03/15/19 09:05 Dose: Not Given Documented by: Fentanyl Citrate (Fentanyl Drip) 1,250 mcg in 250 mls @ 0 mls/hr IV .Q0M [facility]; Protocol Stop: 03/28/19 12:44 Last Titration: 03/15/19 12:32 Dose: Infused Documented by: Furosemide 40 mg/ Syringe 4 mls @ 4 mls/min IV BID17 [facility] Stop: 04/13/19 16:59 Last Admin: 03/15/19 08:57 Dose: 4 mls/min Documented by: Heparin Sodium/Dextrose (Heparin Sodium/Dextrose) 25,000 units in 500 mls @ 27 mls/hr IV .[id number] [facility]; Protocol Stop: 04/13/19 13:14 Last Titration: 03/15/19 06:56 Dose: 1,350 units/hr, 27 mls/hr Documented by: Famotidine 20 mg/ Syringe 5 mls @ 2.5 mls/min IV BID [facility] Stop: 04/14/19 03:29 Last Admin: 03/15/19 08:56 Dose: 2.5 mls/min Documented by: Dexmedetomidine HCl 200 mcg/ (Sodium Chloride) 50 mls @ 9.56 mls/hr IV .[id number] [facility]; Protocol Stop: 03/19/19 09:29 Last Titration: 03/15/19 12:00 Dose: Infused Documented by: Pantoprazole Sodium 40 mg/ (Syringe) 10 mls @ 5 mls/min IV BID@0900,2100 [facility] Stop: 04/14/19 09:29 Last Admin: 03/15/19 09:36 Dose: 5 mls/min Documented by: Miscellaneous ([facility] Electrolyte Replacement Protocol) 1 ea N/A UD PRN PRN Reason: for e-lyte repletion Stop: 03/21/19 12:17 Miscellaneous ([facility] Protocol For Hyperglycemia) 1 ea N/A PRN PRN; Protocol PRN Reason: Hyperglycemia Protocol Stop: 03/16/19 12:18 Resident Activity Tracking Resident Involvement: Resident Care Provided Care Provided: Adult Hospital Medicine (ICU) (1) Depression Depression Type: other depression Qualified Code(s): F32.89 - Other specified depressive episodes (2) CAD (coronary artery disease), [place] coronary artery Associated angina: without angina [place] vs. transplanted heart: [place] heart Qualified Code(s): I25.10 - Atherosclerotic heart disease of [place] coronary artery without angina pectoris (3) GERD (gastroesophageal reflux disease) Esophagitis presence: esophagitis presence not specified Qualified Code(s): K21.9 - Gastro-esophageal reflux disease without esophagitis
[2019-03-15] MEDS: FUROSEMIDE 40 MG in SYRINGE 0 ML IV SCH ×2 (08:57→16:31)
[2019-03-15] MEDS ORDERED: cefTRIAXone SODIUM 1,000 MG/50 ML BAG IV SCH (09:00)
[2019-03-15] MEDS ORDERED: PANTOprazole 40 MG TAB PO SCH (09:00)
[2019-03-15] MEDS ORDERED: cefTRIAXone SODIUM 2,000 MG in DEXTROSE 5% 50 ML IV SCH (09:00)
[2019-03-15] MEDS ORDERED: AZITHROMYCIN 250 MG TAB PO SCH (09:00)
[2019-03-15] MEDS ORDERED: ISOSORBIDE MONO EXTENDED REL 30 MG TABCR PO SCH (09:00)
[2019-03-15] MEDS ORDERED: dilTIAZem HCL 120 MG CAPCR PO SCH (09:00)
[2019-03-15] MEDS: ASPIRIN 81 MG ECTAB PO SCH (09:04)
[2019-03-15] MEDS: FERROUS SULFATE 325 MG TAB PO SCH ×2 (09:05→21:04)
[2019-03-15] MEDS ORDERED: PANTOprazole 40 MG in SYRINGE 0 ML IV SCH (09:30)
[2019-03-15] MEDS: DEXMEDETOMIDINE HCL 200 MCG in SODIUM CHLORIDE 0.9% 48 ML IV SCH ×4 (09:36→21:59)
[2019-03-15 10:34] LABS: Albumin Level 3.4 gm/dl (3.4-5.0); Bilirubin Direct 0.2 mg/dl (0-0.2); Bilirubin,Total 0.6 mg/dl (0.2-1); Total Protein 7.3 gm/dl (6.4-8.2)
--- NOTE | 2019-03-15 12:22 | Billing Data ---
Date of Service March 15, 2019 Coding Level of Care Code Critical Care 1st 30-74 mins Time Spent (min) 35
[2019-03-15 15:31] LABS: Partial Thromboplastin Ratio 2.5
--- NOTE | 2019-03-15 15:54 | Hospitalist Progress Note ---
Date of Service March 15, 2019 Assessment & Plan (1) Acute diastolic CHF (congestive heart failure): Per son, eating more salty foods and unclear medical compliance. - Diuresing per ICU team (2) AMS (altered mental status): Metabolic encephalopathy in the setting volume overload. - Monitor after off sedation during intubation (3) Acute on chronic renal insufficiency: Baseline Cr is 1.5 - 1.9. - Cr up to 3.5 on admission. - Improving with diuresis - Monitor (4) Hypertension: On diltiazem, Imdur, metoprolol, and Lasix at home. Unclear what he was taking. - Holding oral meds; BP stable while intubated (5) Chronic atrial fibrillation: Presently rate-controlled. - Continue heparin gtt for anticoagulation (6) CAD (coronary artery disease), [place] coronary artery: S/p CABG x 2 vessel (1997). Son reports the patient did not mention chest pain. Presently intubated. - Continue ASA, statin, beta-kenji, Imdur (7) Aortic regurgitation: (8) Iron deficiency anemia: Baseline hgb varies widely from ~9 up to 14.4 in 01/2019. - Presently hgb is 11.7 and stable from yesterday - Continue iron (9) Anxiety: Presently sedated. - Continue SSRI once awake and extubated (10) Depression: As above (11) GERD (gastroesophageal reflux disease): On famotidine IV while intubated. (12) DVT prophylaxis: On heparin gtt for his afib Subjective Intubated. Review of Systems Review of Systems: Unobtainable due to endotracheal tube Physical Exam Constitutional: WD/WN, vitals as above Eyes: EOM intact bilaterally; no conjunctival abnormality ENMT: external ear and nose normal, oropharynx normal (Intubated) Neck: trachea midline, no thyromegaly normal visual inspection Respiratory: normal respiratory effort, lungs clear to auscultation no respiratory distress Cardiovascular: RRR, no murmur, no edema Gastrointestinal (Abdomen): Inspection/Auscultation: abdomen normal to inspection; abdomen not distended Musculoskeletal: no cyanosis or clubbing, extremities motor strength 5/5 Skin: no rashes, warm and dry Neurologic: moves all extremities and awake Psychiatric: Orientation: cooperative; + not alert and + not oriented to person Results & Data Vital Signs (Past 12 Hours) Vital Signs Temp Pulse Resp BP Pulse Ox 03/15/19 15:00 82 93 03/15/19 14:32 85 139/69 93 03/15/19 14:00 74 90 03/15/19 13:32 84 141/73 H 90 03/15/19 12:32 79 125/60 92 03/15/19 11:32 80 136/62 95 03/15/19 10:35 66 16 93 03/15/19 10:32 80 127/93 92 03/15/19 09:32 68 120/56 L 95 03/15/19 09:10 67 122/59 L 95 03/15/19 08:32 66 115/52 L 95 03/15/19 08:00 37.1 C 73 95 03/15/19 07:33 73 133/56 L 03/15/19 07:21 66 15 96 03/15/19 07:00 75 93 03/15/19 06:00 63 114/54 L 97 03/15/19 05:00 62 18 119/60 95 03/15/19 04:30 66 15 99 03/15/19 04:00 37.1 C 60 20 124/56 L 97 PG Care Time/CCT Total # of Minutes Spent Total Time Spent with Patient: Total time spent is greater than 50% in coordination of care (as documented) at patient's floor/unit and/or counseling patient: (1) CAD (coronary artery disease), [place] coronary artery [place] vs. transplanted heart: [place] heart Associated angina: without angina Qualified Code(s): I25.10 - Atherosclerotic heart disease of [place] coronary artery without angina pectoris (2) Depression Depression Type: other depression Qualified Code(s): F32.89 - Other specified depressive episodes (3) GERD (gastroesophageal reflux disease) Esophagitis presence: esophagitis presence not specified Qualified Code(s): K21.9 - Gastro-esophageal reflux disease without esophagitis
[2019-03-15 16:01] LABS: Partial Thromboplastin Time 68.5 Seconds (21.0-31.0)
[2019-03-15] MEDS: ATORVASTATIN 40 MG TAB PO SCH (21:04)
[2019-03-15] MEDS: CYANOCOBALAMIN 500 MCG TABLET (VITAMIN B-12) PO SCH (21:04)
[2019-03-15 22:07] LABS: Partial Thromboplastin Time 27.6 Seconds (21.0-31.0)
[2019-03-15] MEDS ORDERED: LORazepam 0.5 MG/1 ML VIAL IV STA (23:40)
[2019-03-15] MEDS ORDERED: LORazepam 2 MG/4 ML VIAL ONE (23:43)
[2019-03-16] MEDS: DEXMEDETOMIDINE HCL 200 MCG in SODIUM CHLORIDE 0.9% 48 ML IV SCH ×2 (00:51→07:04)
[2019-03-16] MEDS ORDERED: LORazepam 0.5 MG/1 ML VIAL IV STA (01:37)
[2019-03-16] MEDS ORDERED: SODIUM CHLORIDE 0.9% IV SCH (01:45)
[2019-03-16] MEDS ORDERED: DEXMEDETOMIDINE HCL IV SCH (01:45)
--- NOTE | 2019-03-16 02:10 | Communication Note ---
Date of Service: March 16, 2019 At approximately 0130, the patient was noted to be increasingly agitated. He climbed out of bed despite several nursing staff members present and the patient's children at bedside. He was aggressively screaming at his family and nursing staff. He is increasingly agitated and a threat to himself as well as safety of staff. Patient pulled his only IV site where Precedex had been infusing. At this point, decision was made to treat the patient with IM Ativan. Order was placed for 0.5 mg IV Ativan initially, however after the patient had discontinued his line, order for IM Ativan verbally given. Patient received 0.5 mg Ativan IM. After this point, the patient did respond appropriately. His BiPAP was placed. He is resting, but easily arousable. Family is at bedside and appreciative. Will hold on further Precedex at this point. Did place ultrasound-guided peripheral access in the upper extremity in hopes of decreasing likelihood of removal. Consider PRN Ativan dosing as patient has previously received Ativan in the past for ongoing issues of agitation. I have personally spent 45 minutes of critical care time in the direct ma nagement of this patient. This is a life/limb threatening event. This includes time spent evaluating patient, direct bedside care, chart review, placing orders, interpretation of diagnostic studies, discussion with consultants, patient, and family members, as well as other required patient management activities. This time is exclusive of all separately billable procedures, and teaching time and separate from and in addition to any other critical care service time.
[2019-03-16] MEDS ORDERED: DEXMEDETOMIDINE HCL 400 MCG in 0.9 % SODIUM CHLORIDE 96 ML IV PRN (03:00)
--- NOTE | 2019-03-16 03:44 | Critical Care Progress Note ---
Date of Service March 16, 2019 Assessment & Plan (1) Admitted to intensive care unit: - Acute hypoxemic respiratory failure requiring mechanical ventilation - Acute diastolic heart failure - Acute kidney injury - Hyperkalemia Neurologic: Delirium Patient having significant delirious episodes in the evening. He had to last night the second was was fairly severe. He responded positively to Lorazepam. Patient was a danger to himself and others in the early hours of 03/16. -Delirium precautions -Lights on during the day, open shades. Dark at night. Limit agitating noises -Patient does not like cpap Pulmonary: Acute hypoxemic respiratory failure requiring mechanical ventilation Thought to be secondary to severe CHF and volume overloaded status. Patient was initially placed on the ventilator, he did well overnight. We will plan to wean from ventilator today. -CPAP when sleeping Cardiovascular: We will continue with IV diuresis given his acute heart failure. -troponin neg -Continue holding Eliquis given that he is in acute renal failure. -continue heparin drip -Hold his diltiazem given that he is in acute heart failure. -Continue isosorbide mononitrate. Gastrointestinal: Bowel regimen if on analgesics: We will start senna docusate as needed Stress ulcer prophylaxis: protnix bid Renal: Likely cardiorenal. improving with diuresis -f/u am labs Infectious disease: No obvious signs of infection. UA is dirty. Leuk esterase and nitrates are negative. no white count. -f/u am labs Hematologic: Anemia secondary to chronic disease. -hgb stable Endocrine: Pharmacy consult for diabetic management F/E/N: -Hold fluids. Replace electrolytes PRN. -Started on heart healthy, diabetic type II, low-sodium diet Lines and tubes: Peripheral IVs and the ET tube in place. VTE prophylaxis: Heparin drip CODE STATUS: Full code. Will discuss with family. Thank you for allowing us to be part of this patient's care. Please refer to Dr. Vuong's documentation for any further recommendations. (2) Chronic diastolic CHF (congestive heart failure): (3) Acute respiratory failure with hypoxia: (4) AMS (altered mental status): (5) Acute on chronic renal insufficiency: (6) Hyperkalemia: (7) Hyperphosphatemia: (8) Hypomagnesemia: (9) Transaminitis: (10) Hypertension: (11) Hyperlipidemia: (12) CAD (coronary artery disease), [place] coronary artery: (13) Aortic regurgitation: (14) Chronic atrial fibrillation: (15) Iron deficiency anemia: (16) Anxiety: (17) Depression: (18) GERD (gastroesophageal reflux disease): (19) Acute hypoxemic respiratory failure: Supervising Physician Co-Signing Physician Notes Dr. Hope was the resident-physician during care of patient. I separately evaluated patient for concepcion portions of the history and the exam. I was present during the critical portion of medical decision making, and I discussed the case with the resident. I generally agree with the findings and plan except for any additions/exceptions noted. Patient is doing much better this morning. He is saturating well on nasal cannula. Apparently overnight he had some issues with agitation delirium and received doses of Ativan. He ripped out an IV in try to rip out his Bernstein. He is more lucid and appropriate today. We will remove his Bernstein catheter today. Continue diuretic therapy. His creatinine is improving nicely and is making good urine output. The heparin drip can be switched to his home direct oral anticoagulant. He can be transferred to the floor with telemetry today. This was discussed with the hospitalist. Subjective Patient sleeping in bed comfortably status post lorazepam injection for agitated state and altered mental status. We are called to the patient's bedside at approximately 1:30 AM with the patient become agitated. He was sitting upright in bed screaming "you all are trying to murder me I need to take a leak "patient's daughter and son were at the bedside and assisted in attempting to calm the gentleman. The gentleman continued to get progressively more and more agitated and violent. He continued to yell "you are murdering me "he was standing up and swaying back and forth, ripped out his IV, at this point he had become a danger to himself and those around him. With the assistance of other medical providers we are able to coax the patient back into his bed and administered a dose of IM lorazepam. Patient was extremely unkind to his children and staff, however he was significantly altered. Now patient is sleeping comfortably in bed. Patient has Bernstein in place, tolerating diet, sleeping intermittently. Otherwise all questions answered acute concerns related to altered mental status/delirium. Physical Exam Physical Exam: General: Elderly gentleman in acute distress secondary to delirium HEENT: Normocephalic atraumatic Neck: Normal to visual inspection Cardiac: Regular rate and rhythm, I did not appreciate any significant murmurs, rubs, gallops, normal S1, normal S2. 1-2+ pitting edema bilaterally Respiratory: Clear to auscultation bilaterally without significant wheezes, rales, rhonchi GI: Soft, nontender, nondistended MSK: Moves all extremities Skin: No concerns at present, sacral pad in place Neuro: Alert and oriented x0 Psych: Aggressive, delirious, altered mental status, likely component of sundowning. Results & Data Vital Signs (Past 12 Hours) Vital Signs Temp Pulse Resp BP Pulse Ox 03/16/19 02:36 100 H 28 H 142/86 H 94 03/16/19 02:21 118 H 16 152/104 H 93 03/16/19 02:00 126 H 29 H 169/103 H 99 03/16/19 01:00 72 24 125/57 L 91 03/16/19 00:00 36.9 C 91 H 26 H 123/85 95 03/15/19 23:00 78 26 H 140/67 94 03/15/19 22:00 81 23 128/75 93 03/15/19 21:00 81 28 H 143/75 H 94 03/15/19 20:00 36.8 C 88 29 H 155/87 H 91 03/15/19 19:00 103 H 19 146/72 H 92 03/15/19 18:33 109 H 23 141/72 H 91 03/15/19 18:00 117 H 18 03/15/19 17:32 100 H 30 H 155/84 H 91 03/15/19 17:28 96 H 31 H 135/78 92 03/15/19 17:00 95 H 29 H 92 03/15/19 16:32 90 29 H 135/78 93 03/15/19 16:00 89 93 Laboratory Results 03/15/19 03/15/19 03/15/19 Range/Units 21:45 15:00 11:01 WBC (4.8-10.8) K/uL RBC (4.7-6.1) M/uL Hgb (14.0-18.0) g/dL Hct (42-52) % MCV (80-100) fL MCH (25-34) pg MCHC (32-36) g/dL RDW Std Deviation (36.4-46.3) fL RDW Coeff of Marilynn (11.5-14.5) % Plt Count (130-400) K/uL MPV (7.4-10.4) fL Immature Gran % (Auto) % Neut % (Auto) % Lymph % (Auto) % Lee % (Auto) % Eos % (Auto) % Baso % (Auto) % Immature Gran # (Auto) (0.00-0.02) K/uL Neut # (Auto) (1.4-6.5) K/uL Lymph # (Auto) (1.2-3.4) K/uL Lee # (Auto) (0.11-0.59) K/uL Eos # (Auto) (0-0.5) K/uL Baso # (Auto) (0-0.2) K/uL PT (9.0-12.0) Seconds INR (0.9-1.1) APTT 27.6 68.5 H* (21.0-31.0) Seconds PTT Ratio 1.0 2.5 Sample Site POC pH (7.35-7.45) POC pCO2 (35-46) mmHg POC pO2 (80-95) mmHg POC HCO3 (19-24) izabel/L POC Total CO2 (24-31) mEq/l POC Base Excess (-9-1.8) izabel/L POC ABG O2 Sat (90-95) % Billy Test O2 Delivery Device POC O2 Rate POC FiO2 % PEEP Sodium (136-145) mmol/L Potassium (3.5-5.1) mmol/L Chloride (98-107) mmol/L Carbon Dioxide (21-32) mmol/L Anion Gap (3-11) BUN (7-18) mg/dl Creatinine (0.6-1.4) mg/dl Est Cr Clr Drug Dosing ml/min Est GFR ( Amer) Est GFR (Non-Af Amer) BUN/Creatinine Ratio (10-20) Glucose (70-99) mg/dl POC Glucose 108 H (70-99) Calcium (8.5-10.1) mg/dl Phosphorus (2.5-4.9) mg/dl Magnesium (1.8-2.4) mg/dl Total Bilirubin (0.2-1) mg/dl Direct Bilirubin (0-0.2) mg/dl AST (15-37) U/L ALT (12-78) U/L Alkaline Phosphatase (45-117) U/L Total Protein (6.4-8.2) gm/dl Albumin (3.4-5.0) gm/dl Globulin (2.5-4.0) gm/dl Albumin/Globulin Ratio (0.9-2) 03/15/19 03/15/19 03/15/19 Range/Units 10:05 05:22 04:40 WBC (4.8-10.8) K/uL RBC (4.7-6.1) M/uL Hgb (14.0-18.0) g/dL Hct (42-52) % MCV (80-100) fL MCH (25-34) pg MCHC (32-36) g/dL RDW Std Deviation (36.4-46.3) fL RDW Coeff of Marilynn (11.5-14.5) % Plt Count (130-400) K/uL MPV (7.4-10.4) fL Immature Gran % (Auto) % Neut % (Auto) % Lymph % (Auto) % Lee % (Auto) % Eos % (Auto) % Baso % (Auto) % Immature Gran # (Auto) (0.00-0.02) K/uL Neut # (Auto) (1.4-6.5) K/uL Lymph # (Auto) (1.2-3.4) K/uL Lee # (Auto) (0.11-0.59) K/uL Eos # (Auto) (0-0.5) K/uL Baso # (Auto) (0-0.2) K/uL PT (9.0-12.0) Seconds INR (0.9-1.1) APTT (21.0-31.0) Seconds PTT Ratio Sample Site R Radial POC pH 7.45 (7.35-7.45) POC pCO2 36 (35-46) mmHg POC pO2 79 L (80-95) mmHg POC HCO3 25 H (19-24) izabel/L POC Total CO2 26 (24-31) mEq/l POC Base Excess 1.0 (-9-1.8) izabel/L POC ABG O2 Sat 96.0 H (90-95) % Billy Test Pass O2 Delivery Device Ventilator POC O2 Rate 14 POC FiO2 50 % PEEP 8 Sodium 141 (136-145) mmol/L Potassium 3.9 (3.5-5.1) mmol/L Chloride 110 H (98-107) mmol/L Carbon Dioxide 25 (21-32) mmol/L Anion Gap 6.0 (3-11) BUN 58 H (7-18) mg/dl Creatinine 2.36 H (0.6-1.4) mg/dl Est Cr Clr Drug Dosing 30.5 ml/min Est GFR ( Amer) 29.7 Est GFR (Non-Af Amer) 25.6 BUN/Creatinine Ratio 24.4 H (10-20) Glucose 93 (70-99) mg/dl POC Glucose (70-99) Calcium 8.3 L (8.5-10.1) mg/dl Phosphorus 4.1 D (2.5-4.9) mg/dl Magnesium 2.8 H (1.8-2.4) mg/dl Total Bilirubin 0.6 0.5 (0.2-1) mg/dl Direct Bilirubin 0.2 (0-0.2) mg/dl AST 287 H 291 H (15-37) U/L ALT 340 H 307 H (12-78) U/L Alkaline Phosphatase 123 H 114 (45-117) U/L Total Protein 7.3 7.3 (6.4-8.2) gm/dl Albumin 3.4 3.3 L (3.4-5.0) gm/dl Globulin 4.0 (2.5-4.0) gm/dl Albumin/Globulin Ratio 0.8 L (0.9-2) 03/15/19 03/15/19 Range/Units 04:40 04:40 WBC 8.91 (4.8-10.8) K/uL RBC 3.50 L (4.7-6.1) M/uL Hgb 11.7 L (14.0-18.0) g/dL Hct 36.2 L (42-52) % MCV 103.4 H (80-100) fL MCH 33.4 (25-34) pg MCHC 32.3 (32-36) g/dL RDW Std Deviation 61.3 H (36.4-46.3) fL RDW Coeff of Marilynn 16.8 H (11.5-14.5) % Plt Count 236 (130-400) K/uL MPV 9.4 (7.4-10.4) fL Immature Gran % (Auto) 0.2 % Neut % (Auto) 68.6 % Lymph % (Auto) 16.3 % Lee % (Auto) 11.4 % Eos % (Auto) 2.8 % Baso % (Auto) 0.7 % Immature Gran # (Auto) 0.02 (0.00-0.02) K/uL Neut # (Auto) 6.11 (1.4-6.5) K/uL Lymph # (Auto) 1.45 (1.2-3.4) K/uL Lee # (Auto) 1.02 H (0.11-0.59) K/uL Eos # (Auto) 0.25 (0-0.5) K/uL Baso # (Auto) 0.06 (0-0.2) K/uL PT 13.5 H (9.0-12.0) Seconds INR 1.3 H (0.9-1.1) APTT 83.3 H* (21.0-31.0) Seconds PTT Ratio 3.1 Sample Site POC pH (7.35-7.45) POC pCO2 (35-46) mmHg POC pO2 (80-95) mmHg POC HCO3 (19-24) izabel/L POC Total CO2 (24-31) mEq/l POC Base Excess (-9-1.8) izabel/L POC ABG O2 Sat (90-95) % Billy Test O2 Delivery Device POC O2 Rate POC FiO2 % PEEP Sodium (136-145) mmol/L Potassium (3.5-5.1) mmol/L Chloride (98-107) mmol/L Carbon Dioxide (21-32) mmol/L Anion Gap (3-11) BUN (7-18) mg/dl Creatinine (0.6-1.4) mg/dl Est Cr Clr Drug Dosing ml/min Est GFR ( Amer) Est GFR (Non-Af Amer) BUN/Creatinine Ratio (10-20) Glucose (70-99) mg/dl POC Glucose (70-99) Calcium (8.5-10.1) mg/dl Phosphorus (2.5-4.9) mg/dl Magnesium (1.8-2.4) mg/dl Total Bilirubin (0.2-1) mg/dl Direct Bilirubin (0-0.2) mg/dl AST (15-37) U/L ALT (12-78) U/L Alkaline Phosphatase (45-117) U/L Total Protein (6.4-8.2) gm/dl Albumin (3.4-5.0) gm/dl Globulin (2.5-4.0) gm/dl Albumin/Globulin Ratio (0.9-2) Medications Administered Current Inpatient Medications Aspirin (Ecotrin Ectab) 81 mg PO QAM TROY Stop: 04/14/19 08:59 Last Admin: 03/15/19 09:04 Dose: Not Given Documented by: Atorvastatin Calcium (Lipitor) 80 mg PO HS [facility] Stop: 04/13/19 20:59 Last Admin: 03/15/19 21:04 Dose: 80 mg Documented by: Cyanocobalamin (Vitamin B-12) 1,000 mcg PO PM TROY Stop: 04/13/19 20:59 Last Admin: 03/15/19 21:04 Dose: 1,000 mcg Documented by: Fentanyl Citrate (Fentanyl Citrate) 25 mcg IV ONE PRN PRN Reason: Pain Not Controlled by Drip Stop: 03/28/19 12:17 Ferrous Sulfate (Feosol) 325 mg PO BID [facility] Stop: 04/13/19 20:59 Last Admin: 03/15/19 21:04 Dose: 325 mg Documented by: Fentanyl Citrate (Fentanyl Drip) 1,250 mcg in 250 mls @ 0 mls/hr IV .Q0M TROY; Protocol Stop: 03/28/19 12:44 Last Titration: 03/15/19 12:32 Dose: Infused Documented by: Furosemide 40 mg/ Syringe 4 mls @ 4 mls/min IV [id number] TROY Stop: 04/13/19 16:59 Last Admin: 03/15/19 16:31 Dose: 4 mls/min Documented by: Heparin Sodium/Dextrose (Heparin Sodium/Dextrose) 25,000 units in 500 mls @ 0 mls/hr IV .Q0M TROY; Protocol Stop: 04/13/19 13:14 Last Titration: 03/15/19 18:41 Dose: 0 units/hr, 0 mls/hr Documented by: Famotidine 20 mg/ Syringe 5 mls @ 2.5 mls/min IV BID TROY Stop: 04/14/19 03:29 Last Admin: 03/15/19 21:04 Dose: 2.5 mls/min Documented by: Dexmedetomidine HCl 200 mcg/ (Sodium Chloride) 50 mls @ 0 mls/hr IV .Q0M TROY; Protocol Stop: 03/19/19 09:29 Last Titration: 03/16/19 02:08 Dose: 0 mcg/kg/hr, 0 mls/hr Documented by: Dexmedetomidine HCl 400 mcg/ (Sodium Chloride) 100 mls @ 23.9 mls/hr IV .Q4H12M PRN; Protocol PRN Reason: TITRATE Stop: 03/20/19 02:59 Miscellaneous ([facility] Electrolyte Replacement Protocol) 1 ea N/A UD PRN PRN Reason: for e-lyte repletion Stop: 03/21/19 12:17 Miscellaneous ([facility] Protocol For Hyperglycemia) 1 ea N/A PRN PRN; Protocol PRN Reason: Hyperglycemia Protocol Stop: 03/16/19 12:18 Resident Activity Tracking Resident Involvement: Resident Care Provided Care Provided: Adult Hospital Medicine (ICU) (1) Depression Depression Type: other depression Qualified Code(s): F32.89 - Other specified depressive episodes (2) CAD (coronary artery disease), [place] coronary artery Associated angina: without angina [place] vs. transplanted heart: [place] heart Qualified Code(s): I25.10 - Atherosclerotic heart disease of [place] coronary artery without angina pectoris (3) GERD (gastroesophageal reflux disease) Esophagitis presence: esophagitis presence not specified Qualified Code(s): K21.9 - Gastro-esophageal reflux disease without esophagitis
[2019-03-16 04:51] LABS: Basophils # (auto) 0.01 K/uL (0-0.2); Basophils % (auto) 0.1 %; Eosinophils # (auto) 0.07 K/uL (0-0.5); Eosinophils % (auto) 0.9 %; Hematocrit (blood only) 36.7 % (42-52); Hemoglobin 11.8 g/dL (14.0-18.0); Immature Granulocytes # (auto) 0.01 K/uL (0.00-0.02); Immature Granulocytes % (auto) 0.1 %; Lymphocytes % (auto) 10.2 %; Mean Corpuscular Hemoglobin 33.1 pg (25-34); Mean Corpuscular Hgb Conc 32.2 g/dL (32-36); Mean Corpuscular Volume 103.1 fL (80-100); Mean Platelet Volume 9.2 fL (7.4-10.4); Monocytes # (auto) 0.61 K/uL (0.11-0.59); Monocytes % (auto) 7.8 %; Neutrophils # (auto) 6.32 K/uL (1.4-6.5); Neutrophils % (auto) 80.9 %; Platelet Count 220 K/uL (130-400); RDW Coefficient of Variation 16.3 % (11.5-14.5); RDW Standard Deviation 60.1 fL (36.4-46.3); Red Blood Count 3.56 M/uL (4.7-6.1); White Blood Count 7.82 K/uL (4.8-10.8)
--- NOTE | 2019-03-16 04:57 | Procedure Note ---
Procedure Note Date of Service March 16, 2019 Procedure: Shaker Operator Indwelling Peripherally Inserted IV Catheter Placement Attending: Dr. Vuong APC: eKe Kent PA-C Indication: Need for IV Access, Poor Vascular Access Anesthesia: None Verbal consent was obtained from patient prior to performing the procedure. A time-out was completed verifying correct patient, procedure, site, positioning, and implant(s) or special equipment if applicable. Utilizing bedside ultrasound, vascularity of the LEFT upper extremity was assessed. Vessel size was noted for appropriate catheter selection and skin was marked with gentle pressure. Patients LEFT upper extremity was prepped and draped in the usual sterile fashion utilizing chlorhexidine. Ultrasound guidance was used to aid needle placement. A 20g Endurance Catheter was introduced into the LEFT Cephalic vein under direct ultrasound guidance. Guide wire was easily deployed without resistance. Catheter was threaded over the guide wire without resistance and the entire apparatus was removed intact. Good venous blood return was noted in the catheter. The IV catheter was easily flushed with sterile saline flush. Sterile clave was attached to the end of the catheter and good blood return was again noted. Tourniquet was released. StatLock device and sterile dressing were applied. The patient tolerated the procedure well. Blood Loss: Minimal Complications: None Procedural Ultrasound Guidance: Procedure Date: 03/16/2019 Indication: Poor Vascular Access Attending: Dr. Vuong APC: Kee Kent PA-C Artery/Veins Identified: YES Access confirmed in Vein with ultrasound: YES Complications: NONE Patient tolerated procedure: WELL Coding
[2019-03-16 05:31] LABS: BUN Creatinine Ratio 21.1 (10-20); Calcium 8.2 mg/dl (8.5-10.1); Creatinine Clr Calc Pharmacy 39.9 ml/min; Est GFR (African American) 43.8; Est GFR (Non-African American) 37.8; Magnesium 2.6 mg/dl (1.8-2.4); Phosphorus 3.3 mg/dl (2.5-4.9); Potassium 3.6 mmol/L (3.5-5.1)
--- NOTE | 2019-03-16 07:04 | XRay Report ---
XR chest 1V portable CLINICAL HISTORY: 78 years-old Male presenting with f/u. TECHNIQUE: Portable upright AP view of the chest was obtained. COMPARISON: 03/15/2019. FINDINGS: Median sternotomy wires and mediastinal surgical clips. Numerous external leads project over the thor ax to grating evaluation. There has been interval extubation. The nasogastric tube has also been fran wilner. Overall improved lung volumes. Cardiac silhouette mildly enlarged as on prior. Mild pulmonary va scular prominence. No focal opacity. No large effusion or pneumothorax. Osseous structures normal. Up per abdomen normal. IMPRESSION: 1. Status post extubation with improved lung volumes. 2. Mild cardiomegaly and volume overload. No advanced congestive change or batool pulmonary edema. Electronically signed by: Keith Carter M.D. 03/16/2019 7:03 AM
[2019-03-16] MEDS: FERROUS SULFATE 325 MG TAB PO SCH ×2 (09:26→20:29)
[2019-03-16] MEDS: FAMOTIDINE 20 MG in SYRINGE 3 ML IV SCH (09:26)
[2019-03-16] MEDS: FUROSEMIDE 40 MG in SYRINGE 0 ML IV SCH ×2 (09:26→17:43)
[2019-03-16] MEDS: ASPIRIN 81 MG ECTAB PO SCH (09:26)
--- NOTE | 2019-03-16 09:28 | Billing Data ---
Date of Service March 16, 2019 Coding Level of Care Code 89877 Subseq Hosp Care Lvl 3
[2019-03-16] MEDS ORDERED: METOPROLOL SUCC 25MG EXT REL TAB PO SCH (12:00)
[2019-03-16] MEDS: DOCUSATE SODIUM 100 MG CAP PO SCH ×2 (12:44→20:29)
[2019-03-16] MEDS ORDERED: LORazepam 0.5 MG/1 ML VIAL IV PRN (14:28)
--- NOTE | 2019-03-16 14:39 | Hospitalist Progress Note ---
Date of Service March 16, 2019 Assessment & Plan (1) Acute diastolic CHF (congestive heart failure): Per son, eating more salty foods and unclear medical compliance. - Diuresing successfully -> So far net negative 5L and weight is down 12 kg. - Continue Lasix 40mg IV BID (2) Hepatitis: Likely due to hepatic congestion on presentation. - Monitor (3) AMS (altered mental status): Metabolic encephalopathy in the setting volume overload. - Improving today (4) Acute on chronic renal insufficiency: Baseline Cr is 1.5 - 1.9. - Cr up to 3.5 on admission with hyperkalemia. - Improving with diuresis - Today is essentially at baseline at 1.7. (5) Hypertension: On diltiazem, Imdur, metoprolol, and Lasix at home. Unclear what he was taking. - Restarted oral beta-kenji on 03/16 more for tachycardia than BP which is stable today at 110/80. - Restart lisinopril tomorrow as Cr has returned to normal; add others as needed. (6) Chronic atrial fibrillation: Initially self rate-controlled; on 03/16, his HR is edging up. - Stop heparin gtt; restart home anticoagulation - Restarted beta-kenji to control HR (7) CAD (coronary artery disease), [place] coronary artery: S/p CABG x 2 vessel (1997). Son reports the patient did not mention chest pain. Presently intubated. - Continue ASA, statin, beta-kenji - Restart Imdur as needed (8) Iron deficiency anemia: Baseline hgb varies widely from ~9 up to 14.4 in 01/2019. - Presently hgb is 11.7 and stable from yesterday - Continue iron (9) Anxiety: - Continue SSRI (10) Depression: As above (11) GERD (gastroesophageal reflux disease): On famotidine IV while intubated. - Return to home PPI (12) DVT prophylaxis: On apixaban for his afib Subjective Doing better today. Overall, much improved breathing. Was agitated overnight, but now less so. Reports no fevers/chills, chest pain, shortness of breath, abdominal pain, nausea, or vomiting. Physical Exam Constitutional: WD/WN, vitals as above Eyes: EOM intact bilaterally; no conjunctival abnormality ENMT: external ear and nose normal, oropharynx normal Neck: trachea midline, no thyromegaly normal visual inspection Respiratory: normal respiratory effort, lungs clear to auscultation no respiratory distress Cardiovascular: Rate/Rhythm: + tachycardic and + irregularly irregular Heart Sounds: normal S1 and normal S2 Vessels: no JVD Extremities: no edema Gastrointestinal (Abdomen): Inspection/Auscultation: abdomen normal to inspection; abdomen not distended Musculoskeletal: no cyanosis or clubbing, extremities motor strength 5/5 Skin: no rashes, warm and dry Neurologic: moves all extremities and awake Psychiatric: Orientation: alert, oriented to person and cooperative Results & Data Vital Signs (Past 12 Hours) Vital Signs Temp Pulse Pulse Resp BP BP Pulse Ox 03/16/19 13:12 37.1 C 137 H 18 112/81 93 03/16/19 12:40 115 H 29 H 151/82 H 93 03/16/19 10:17 110 H 17 135/100 91 03/16/19 09:17 110 H 24 145/83 H 93 03/16/19 08:16 36.9 C 102 H 16 151/69 H 93 03/16/19 06:53 107 H 25 H 142/61 H 88 L 03/16/19 06:00 103 H 168/63 H 94 03/16/19 05:36 92 H 26 H 139/75 93 03/16/19 05:21 89 27 H 144/74 H 90 03/16/19 05:00 85 140/69 91 03/16/19 04:00 36.5 C 85 22 133/73 98 03/16/19 03:00 110 H 22 129/76 98 03/16/19 02:36 100 H 28 H 142/86 H 94 PG Care Time/CCT Total # of Minutes Spent Total Time Spent with Patient: Total time spent is greater than 50% in coordination of care (as documented) at patient's floor/unit and/or counseling patient: (1) CAD (coronary artery disease), [place] coronary artery [place] vs. transplanted heart: [place] heart Associated angina: without angina Qualified Code(s): I25.10 - Atherosclerotic heart disease of [place] coronary artery without angina pectoris (2) Depression Depression Type: other depression Qualified Code(s): F32.89 - Other specified depressive episodes (3) GERD (gastroesophageal reflux disease) Esophagitis presence: esophagitis presence not specified Qualified Code(s): K21.9 - Gastro-esophageal reflux disease without esophagitis
[2019-03-16] MEDS: METOPROLOL TARTRATE 25 MG TAB PO SCH ×2 (15:19→20:30)
[2019-03-16] MEDS: POLYETHYLENE (MIRALAX) 17 GM PACK PO SCH (15:19)
[2019-03-16] MEDS: ACETAMINOPHEN 325 MG TAB PO PRN (17:41)
[2019-03-16] MEDS ORDERED: COUGH DROP (SUGAR FREE) LOZ 24 LOZ/1 BOX BUCCAL PRN (20:23)
[2019-03-16] MEDS ORDERED: COUGH DROP (SUGAR FREE) LOZ 24 LOZ/1 BOX BUCCAL ONE (20:27)
[2019-03-16] MEDS: APIXABAN 5 MG TABLET PO SCH (20:29)
[2019-03-16] MEDS: CITALOPRAM 20 MG TAB PO SCH (20:29)
[2019-03-16] MEDS: CYANOCOBALAMIN 500 MCG TABLET (VITAMIN B-12) PO SCH (20:29)
[2019-03-16] MEDS: ATORVASTATIN 40 MG TAB PO SCH (20:29)
[2019-03-17 07:04] LABS: Albumin Globulin Ratio 0.8 (0.9-2); Albumin Level 3.5 gm/dl (3.4-5.0); BUN Creatinine Ratio 16.9 (10-20); Calcium 9.4 mg/dl (8.5-10.1); Creatinine Clr Calc Pharmacy 43.4 ml/min; Est GFR (African American) 49.7; Est GFR (Non-African American) 42.9; Globulin 4.6 gm/dl (2.5-4.0); Magnesium 2.8 mg/dl (1.8-2.4); Phosphorus 3.6 mg/dl (2.5-4.9); Potassium 4.6 mmol/L (3.5-5.1); Total Protein 8.1 gm/dl (6.4-8.2)
[2019-03-17] MEDS: POLYETHYLENE (MIRALAX) 17 GM PACK PO SCH (07:51)
[2019-03-17] MEDS: DOCUSATE SODIUM 100 MG CAP PO SCH ×2 (07:52→20:05)
[2019-03-17] MEDS: ACETAMINOPHEN 325 MG TAB PO PRN (07:53)
[2019-03-17] MEDS: ASPIRIN 81 MG ECTAB PO SCH (07:54)
[2019-03-17] MEDS: APIXABAN 5 MG TABLET PO SCH ×2 (07:54→20:06)
[2019-03-17] MEDS: METOPROLOL TARTRATE 25 MG TAB PO SCH ×2 (07:55→20:06)
[2019-03-17] MEDS: FERROUS SULFATE 325 MG TAB PO SCH ×2 (07:55→20:05)
[2019-03-17] MEDS: lisinopriL 10 MG TAB PO SCH (07:57)
[2019-03-17] MEDS: FUROSEMIDE 40 MG in SYRINGE 0 ML IV SCH ×2 (07:58→16:25)
[2019-03-17] MEDS ORDERED: PANTOprazole 40 MG TAB PO SCH (09:00)
--- NOTE | 2019-03-17 14:42 | Emergency Department Note ---
Entered by Erick Cummings acting as a scribe for History of Present Illness General Chief complaint: Illness Stated complaint: FLU,SHALLOW BREATHING Source: family History of Present Illness Provider complaint: Shortness of breath Onset (ago): day(s) (Past couple of days) Location: chest Severity: similar to prior episodes Pain Consistency: + constant Relieved By: + none Associated symptoms: + confusion, + cough, + fever/chills, + loss of appetite and + weakness; no nausea/vomiting The patient is a 78 year old male who presents to the Emergency Room with complaints of constant shortness of breath that started a few days ago. Per the son, the patient has been in getting weaker and has no appetite since the onset of his symptoms. He also has a dry cough and has been subjectively feverish. The son adds that the patient has been confused and mumbling his words which is normal for him when he becomes ill. The son reports that this morning the patient yelled for him because he was too weak to get out of the bathtub. When the son got to him in the bathroom his lips were blue so he called 911. The son states that the patient has been around others in the family who have been sick. The patient does have a cardiac history including a triple bypass. The patient follows with Dr. Fernandes for cardiology. Per the son, the patient has no nausea, vomiting, or diarrhea. The patient does not use CPAP at night nor has he had his pneumonia shot. The patient has gotten his flu shot. The patient does not use tobacco or alcohol. HPI is limited secondary to patient's altered mental status. Home Medications Home Medications Medication Instructions Recorded Confirmed Type Prilosec OTC 20 mg PO QAM 12/30/17 03/14/19 History atorvastatin 80 mg PO HS 12/30/17 03/14/19 History citalopram [Celexa] 20 mg PO HS 12/30/17 03/14/19 History aspirin [Aspir-81] 81 mg PO QAM 04/23/18 03/14/19 History diltiazem HCl 120 mg PO QAM #30 cap 11/13/18 03/14/19 Rx ferrous sulfate 325 mg PO BID #60 tab 11/13/18 03/14/19 Rx isosorbide mononitrate 30 mg PO QAM #30 tab 11/13/18 03/14/19 Rx nitroglycerin 0.4 mg SUBLINGUAL Q5M PRN #1 btl 11/13/18 03/14/19 Rx cyanocobalamin (vitamin B-12) 1,000 mcg PO PM 11/17/18 03/14/19 History apixaban 5 mg tablet 5 mg PO BID #60 tab 12/11/18 03/14/19 Rx lisinopril 10 mg tablet 10 mg PO DAILY 12/11/18 03/14/19 History furosemide 40 mg tablet 40 mg PO DAILY PRN #30 tab 02/07/19 03/14/19 Rx amoxicillin 500 mg PO TID 03/14/19 03/14/19 History metoprolol tartrate 0 mg PO BID 03/14/19 03/14/19 History Allergies Allergy/AdvReac Type Severity Reaction Status Date / Time No Known Drug Allergies Allergy Verified 03/14/19 07:10 Past Med/Surg History Medical History (Updated 03/17/19 @ 00:01 by Pao Huerta) A-fib (Chronic) Acute blood loss anemia 2/2 hematuria, had 2 units PRBCs during admission 02/28-03/03 Acute diastolic heart failure Acute hypoxemic respiratory failure Acute hypoxemic respiratory failure Acute kidney injury (Acute) Admitted [facility] 01/05-01/09 for obstruction uropathy/EDUARDA. Readmitted 02/28-03/03 for hematuria/acute blood loss anemia. Acute kidney injury Admitted to intensive care unit Anxiety (Chronic) CAD (coronary artery disease), [place] coronary artery Depression (Chronic) Elevated troponin (Resolved) Per discharge summary 01/09/18: "Likely because of EDUARDA , no ischemic concerns" Essential hypertension (Chronic) GERD (gastroesophageal reflux disease) (Chronic) Gross hematuria History of anesthesia reaction CONVULSIONS POST OP QUICK COMING AWAKE FROM CABG SURG 20 YRS AGO. DENIES SEIZURES, SAYS HE 'WOKE UP TOO QUICKLY' AND THEY PUT HIM BACK UNDER Hyperkalemia Hyperlipidemia Hypertension Indwelling Bernstein catheter present Lactic acidosis Obstructive uropathy (Acute) Caused EDUARDA, admitted [facility] 12/2017, discharged with Bernstein and then self- cathing. Caused injury self-cathing and was readmitted for blood loss. Surgical History H/O colonoscopy History of cardiac cath NO STENTS-20 YRS AGO History of cardioversion 2-3 YRS AGO [facility] History of coronary artery bypass graft 2 [facility]ESSEL [facility]PASS 20 YRS AGO-[facility] S/P CABG x 2 Family History Brother Family history of esophageal cancer Other No pertinent family history Social History Preferred Language: Malawian Communication Ability: Effective Visual Impairment: No Limitations Net Manager Required: No Beliefs That Will Affect Care: None marital status: Single Current Living Situation: Family Current Living Situation Comment: lives with son Feels Safe at Home: Yes Smoking Status: Never smoker Second Hand Exposure: No ; Hx Alcohol Use: No Hx Substance Use: No Review of Systems See HPI for pertinent positives & negatives. and A total of 10 systems reviewed and were otherwise negative Physical Exam Vital Signs Vital Signs - 24 hr 03/14/19 06:26 03/14/19 07:00 03/14/19 07:27 Temperature 97.5 F L Temperature Source Oral Pulse Rate 52 L 51 L 55 L Pulse Rate from SpO2 Sensor 51 L Pulse Rhythm Regular Pulse Strength Normal Respiratory Rate 24 31 H 26 H Respiratory Effort / Characteristics Spontaneous Nasal Flaring Spontaneous Respiratory Depth Shallow Normal Respiratory Pattern Tachypnea Regular Blood Pressure 107/69 Blood Pressure Mean 81 Blood Pressure Position Sitting Pulse Oximetry 82 L 93 98 Oxygen Delivery Method Room Air Fraction of Inspired Oxygen 40 Sepsis Recent Fever Within 48 Hours No Sepsis Action Taken by Nursing No Action Required End-Tidal CO2 03/14/19 07:30 03/14/19 07:43 03/14/19 07:46 Temperature Temperature Source Pulse Rate 55 L 55 L 40 L Pulse Rate from SpO2 Sensor 58 L 60 59 L Pulse Rhythm Pulse Strength Respiratory Rate 28 H 25 H 30 H Respiratory Effort / Characteristics Respiratory Depth Respiratory Pattern Blood Pressure 112/60 92/64 L Blood Pressure Mean 90 85 Blood Pressure Position Pulse Oximetry 99 100 99 Oxygen Delivery Method Fraction of Inspired Oxygen Sepsis Recent Fever Within 48 Hours Sepsis Action Taken by Nursing End-Tidal CO2 03/14/19 08:01 03/14/19 08:15 03/14/19 08:26 Temperature Temperature Source Pulse Rate 53 L 59 L Pulse Rate from SpO2 Sensor 58 L 58 L Pulse Rhythm Pulse Strength Respiratory Rate 27 H 29 H Respiratory Effort / Characteristics Respiratory Depth Respiratory Pattern Blood Pressure 103/59 L 121/68 Blood Pressure Mean 74 91 Blood Pressure Position Pulse Oximetry 98 99 100 Oxygen Delivery Method BiPAP Fraction of Inspired Oxygen 40 Sepsis Recent Fever Within 48 Hours Sepsis Action Taken by Nursing End-Tidal CO2 03/14/19 08:30 03/14/19 08:45 03/14/19 09:10 Temperature Temperature Source Pulse Rate 65 57 L Pulse Rate from SpO2 Sensor 63 63 Pulse Rhythm Pulse Strength Respiratory Rate 20 27 H 26 H Respiratory Effort / Characteristics Non-Labored Respiratory Depth Respiratory Pattern Blood Pressure Blood Pressure Mean Blood Pressure Position Pulse Oximetry 100 100 99 Oxygen Delivery Method BiPAP Fraction of Inspired Oxygen 40 Sepsis Recent Fever Within 48 Hours Sepsis Action Taken by Nursing End-Tidal CO2 03/14/19 09:16 03/14/19 09:49 03/14/19 11:29 Temperature Temperature Source Pulse Rate 63 Pulse Rate from SpO2 Sensor 61 62 Pulse Rhythm Pulse Strength Respiratory Rate 27 H 21 23 Respiratory Effort / Characteristics Respiratory Depth Respiratory Pattern Blood Pressure 127/78 124/68 Blood Pressure Mean 101 89 Blood Pressure Position Pulse Oximetry 99 100 Oxygen Delivery Method Fraction of Inspired Oxygen 100 Sepsis Recent Fever Within 48 Hours Sepsis Action Taken by Nursing End-Tidal CO2 33 GENERAL: alert, well appearing, well nourished, mild distress, non-toxic EYE EXAM: normal conjunctiva, PERRL and EOM's grossly intact OROPHARYNX: no exudate, no erythema, lips, buccal mucosa, and tongue normal and mucous membranes are moist NECK: supple, no nuchal rigidity, no adenopathy, non-tender LUNGS: Clear to auscultation. Normal chest wall mechanics, no w/r/r, tachypneic, increased WOB HEART: no murmurs, S1 normal and S2 normal CHEST: Sternotomy scar noted. ABDOMEN: abdomen soft, non-tender, normo-active bowel sounds, no masses, no rebound or guarding. BACK: Back is symmetrical on inspection and there is no deformity, no midline tenderness, no CVA tenderness. SKIN: no rashes and no bruising UPPER EXTREMITIES: upper extremities are grossly normal. FROM, nml pulses b/l. LOWER EXTREMITIES: No pitting edema. FROM, nml pulses b/l. NEURO EXAM: Patient is confused, mumbling but incomprehensible, cranial nerves II-XII grossly intact, no gross weakness of arms, no gross weakness of legs. Will follow simple commands. Procedures Intubation Time out performed: Yes sedative: Etomidate Mg Given: 30 paralytic: Rocuronium Mg Given: 100 Laryngoscope: fiber optic video scope ET Tube Size: 7.5 ET Tube Uncuffed: No Tube Secured Depth (cm): 23 Tube Secured Location: lips Tube Placement Confirmation: visualized tube passing through cords, equal breath sounds bilaterally, no breath sounds over epigastrium and confirmation by capno metry Patient Tolerated Procedure: well Intubation Complications: none Course Course 0641: Past medical records reviewed. The patient was evaluated in room A10, and a complete history and physical examination were performed. 0720: I checked on the patient and respiratory is in the room starting BiPAP. 0735: I reevaluated the patient and he is on BiPAP with a RR in the 30s. 0744: I updated the patient's son at bedside on the plan. He states the patient is a full code. 0808: The patient's son confirmed a patient history of chronic Afib for which he is on Eliquis. The patient's condition has not improved much since the BiPAP was started. He is slightly more alert. 0829: I spoke to Dr. Jimmy Payan [facility] Hospitalist about the patient's case. He agreed to accept the patient for further evaluation. 0839: I reassessed the patient and his condition has improved. He is able to f orm full sentences. 0910: I reevaluated the patient and updated his son. All parties are agreeable with the treatment plan. 1022: I reexamined the patient and his breathing appears more labored, having more abdominal breathing, increased WOB, decreased mentation. 1057: After additional discussion with admitting hospitalist who had already spoken with face boss, they are comfortable with plan to pursue intubation. I performed the intubation with assistance from the resident Dr. Montenegro. See procedure note for more information. 1138: The patient is intubated, sedated, resting in bed in stable condition. VS stable. Consultations Consultation #1: I spoke to Dr. Marquez [facility] Hospitalist about the patient's ca se. He agreed to accept the patient for further evaluation. Time: 08:29 Administered Medications Acetaminophen (Tylenol) 650 mg PO Q4H PRN PRN Reason: Pain or Fever Stop: 04/15/19 17:03 Last Admin: 03/17/19 07:53 Dose: 650 mg Documented by: [id number] Admin: 03/16/19 17:41 Dose: 650 mg Documented by: [id number] Apixaban (Eliquis) 5 mg PO BID TROY Stop: 04/15/19 20:59 Last Admin: 03/17/19 07:54 Dose: 5 mg Documented by: [id number] Admin: 03/16/19 20:29 Dose: 5 mg Documented by: [id number] Aspirin (Ecotrin Ectab) 81 mg PO QAM [facility]OY Stop: 04/16/19 08:59 Last Admin: 03/17/19 07:54 Dose: 81 mg Documented by: [id number] Atorvastatin Calcium (Lipitor) 80 mg PO TROY Stop: 04/13/19 20:59 Last Admin: 03/16/19 20:29 Dose: 80 mg Documented by: [id number] Admin: 03/15/19 21:04 Dose: 80 mg Documented by: [id number] Admin: 03/14/19 21:04 Dose: 80 mg Documented by: [id number] Citalopram Hydrobromide (Celexa) 20 mg PO TROY Stop: 04/15/19 20:59 Last Admin: 03/16/19 20:29 Dose: 20 mg Documented by: [id number] Cyanocobalamin (Vitamin B-12) 1,000 mcg PO PM TROY Stop: 04/13/19 20:59 Last Admin: 03/16/19 20:29 Dose: 1,000 mcg Documented by: [id number] Admin: 03/15/19 21:04 Dose: 1,000 mcg Documented by: [id number] Admin: 03/14/19 21:04 Dose: 1,000 mcg Documented by: [id number] Docusate Sodium (Colace) 100 mg PO BID TROY Stop: 04/15/19 12:14 Last Admin: 03/17/19 07:52 Dose: 100 mg Documented by: [id number] Admin: 03/16/19 20:29 Dose: 100 mg Documented by: [id number] Admin: 03/16/19 12:44 Dose: 100 mg Documented by: [id number] Ferrous Sulfate (Feosol) 325 mg PO BID TROY Stop: 04/13/19 20:59 Last Admin: 03/17/19 07:55 Dose: 325 mg Documented by: [id number] Admin: 03/16/19 20:29 Dose: 325 mg Documented by: [id number] Admin: 03/16/19 09:26 Dose: 325 mg Documented by: [id number] Admin: 03/15/19 21:04 Dose: 325 mg Documented by: [id number] Admin: 03/15/19 09:05 Dose: Not Given Documented by: [id number] Admin: 03/14/19 21:04 Dose: 325 mg Documented by: [id number] Furosemide 40 mg/ Syringe 4 mls @ 4 mls/min IV [id number] TORY Stop: 04/13/19 16:59 Last Admin: 03/17/19 07:58 Dose: 4 mls/min Documented by: [id number] Admin: 03/16/19 17:43 Dose: 4 mls/min Documented by: [id number] Admin: 03/16/19 09:26 Dose: 4 mls/min Documented by: [id number] Admin: 03/15/19 16:31 Dose: 4 mls/min Documented by: [id number] Admin: 03/15/19 08:57 Dose: 4 mls/min Documented by: [id number] Admin: 03/14/19 16:31 Dose: 4 mls/min Documented by: [id number] Lisinopril (Zestril) 10 mg PO DAILY TROY Stop: 04/16/19 08:59 Last Admin: 03/17/19 07:57 Dose: 10 mg Documented by: [id number] Metoprolol Tartrate (Lopressor) 25 mg PO BID TROY Stop: 04/15/19 13:44 Last Admin: 03/17/19 07:55 Dose: 25 mg Documented by: [id number] Admin: 03/16/19 20:30 Dose: 25 mg Documented by: [id number] Admin: 03/16/19 15:19 Dose: 25 mg Documented by: [id number] Polyethylene Glycol (Miralax Powder Packet) 17 gm PO DAILY TROY Stop: 04/15/19 14:29 Last Admin: 03/17/19 07:51 Dose: 17 gm Documented by: [id number] Admin: 03/16/19 15:19 Dose: 17 gm Documented by: [id number] Discontinued Medications Albuterol (Duoneb) 3 ml NEB NOW STA Stop: 03/14/19 08:54 Last Admin: 03/14/19 09:08 Dose: 3 ml Documented by: [id number] Aspirin (Ecotrin Ectab) 81 mg PO QAM TROY Stop: 04/14/19 08:59 Last Admin: 03/16/19 09:26 Dose: 81 mg Documented by: [id number] Admin: 03/15/19 09:04 Dose: Not Given Documented by: [id number] Etomidate (Amidate) 30 mg IV ONCE ONE Stop: 03/14/19 11:34 Last Admin: 03/14/19 11:12 Dose: 30 mg Documented by: [id number] Fentanyl Citrate (Fentanyl Bolus From Bag) 50 mcg IV NOW ONE Stop: 03/14/19 13:40 Last Admin: 03/14/19 13:58 Dose: 50 mcg Documented by: [id number] Furosemide (Lasix) 40 mg IV NOW STA Stop: 03/14/19 07:32 Last Admin: 03/14/19 08:25 Dose: 40 mg Documented by: [id number] Heparin Sodium/Dextrose () 1 ea IV Q30M [facility]; Protocol Stop: 03/14/19 16:09 Last Admin: 03/14/19 14:36 Dose: Not Given Documented by: [id number] Admin: 03/14/19 13:58 Dose: 1 ea Documented by: [id number] Sodium Chloride (Nss 1000ml) 1,000 mls @ 999 mls/hr IV .Q1H1M [facility] Stop: 03/14/19 08:00 Last Admin: 03/14/19 08:25 Dose: Not Given Documented by: [id number] Sodium Chloride (Nss 1000ml) 1,000 mls @ 125 mls/hr IV .Q8H [facility] Stop: 04/13/19 07:59 Last Infusion: 03/14/19 14:35 Dose: 0 mls/hr Documented by: [id number] Admin: 03/14/19 08:25 Dose: 125 mls/hr Documented by: [id number] Ceftriaxone Sodium (Rocephin) 2,000 mg in 70 mls @ 140 mls/hr IV NOW STA Stop: 03/14/19 08:45 Last Infusion: 03/14/19 09:17 Dose: 0 mls/hr Documented by: [id number] Admin: 03/14/19 08:47 Dose: 140 mls/hr Documented by: [id number] Azithromycin 500 mg/ Dextrose 255 mls @ 125 mls/hr IV ONE ONE Stop: 03/14/19 10:18 Last Infusion: 03/14/19 10:59 Dose: 0 mls/hr Documented by: [id number] Admin: 03/14/19 08:48 Dose: 125 mls/hr Documented by: [id number] Propofol (Diprivan) 1,000 mg in 100 mls @ 6.396 mls/hr IV .[id number] [facility]; Protocol Stop: 03/17/19 11:59 Last Titration: 03/15/19 09:36 Dose: 0 mcg/kg/min, 0 mls/hr Documented by: [id number] Titration: 03/15/19 06:56 Dose: 10 mcg/kg/min, 6.4 mls/hr Documented by: [id number] Cosigned by: [id number] Admin: 03/14/19 23:33 Dose: 10 mcg/kg/min, 6.4 mls/hr Documented by: [id number] Cosigned by: [id number] Titration: 03/14/19 23:33 Dose: 10 mcg/kg/min, 6.4 mls/hr Documented by: [id number] Cosigned by: [id number] Titration: 03/14/19 19:08 Dose: 10 mcg/kg/min, 6.4 mls/hr Documented by: [id number] Cosigned by: [id number] Titration: 03/14/19 16:40 Dose: 10 mcg/kg/min, 6.4 mls/hr Documented by: [id number] Titration: 03/14/19 14:36 Dose: 15 mcg/kg/min, 9.6 mls/hr Documented by: [id number] Titration: 03/14/19 13:31 Dose: 10 mcg/kg/min, 6.4 mls/hr Documented by: [id number] Admin: 03/14/19 11:30 Dose: 5 mcg/kg/min, 3.2 mls/hr Documented by: [id number] Cosigned by: [id number] Fentanyl Citrate (Fentanyl Drip) 1,250 mcg in 250 mls @ 0 mls/hr IV .Q0M [facility]; Protocol Stop: 03/28/19 12:44 Last Titration: 03/15/19 12:32 Dose: 0 mcg/hr, 0 mls/hr Documented by: [id number] Admin: 03/15/19 10:15 Dose: Not Given Documented by: [id number] Titration: 03/15/19 09:42 Dose: 0 mcg/hr, 0 mls/hr Documented by: [id number] Titration: 03/15/19 09:06 Dose: 50 mcg/hr, 10 mls/hr Documented by: [id number] Titration: 03/15/19 06:56 Dose: 75 mcg/hr, 15 mls/hr Documented by: [id number] Cosigned by: [id number] Admin: 03/15/19 06:14 Dose: 75 mcg/hr, 15 mls/hr Documented by: [id number] Cosigned by: [id number] Titration: 03/15/19 06:14 Dose: 75 mcg/hr, 15 mls/hr Documented by: [id number] Cosigned by: [id number] Titration: 03/15/19 01:22 Dose: 75 mcg/hr, 15 mls/hr Documented by: [id number] Titration: 03/14/19 19:08 Dose: 50 mcg/hr, 10 mls/hr Documented by: [id number] Titration: 03/14/19 14:38 Dose: 50 mcg/hr, 10 mls/hr Documented by: [id number] Admin: 03/14/19 13:25 Dose: 25 mcg/hr, 5 mls/hr Documented by: [id number] Cosigned by: [id number] Heparin Sodium/Dextrose (Heparin Sodium/Dextrose) 25,000 units in 500 mls @ 0 mls/hr IV .Q0M [facility]; Protocol Stop: 04/13/19 13:14 Last Titration: 03/16/19 07:19 Dose: 0 units/hr, 0 mls/hr Documented by: [id number] Cosigned by: [id number] Titration: 03/15/19 18:41 Dose: 0 units/hr, 0 mls/hr Documented by: [id number] Cosigned by: [id number] Admin: 03/15/19 16:30 Dose: Not Given Documented by: [id number] Titration: 03/15/19 16:05 Dose: 1,250 units/hr, 25 mls/hr Documented by: [id number] Cosigned by: [id number] Titration: 03/15/19 06:56 Dose: 1,350 units/hr, 27 mls/hr Documented by: [id number] Cosigned by: [id number] Titration: 03/15/19 06:19 Dose: 0 units/hr, 0 mls/hr Documented by: [id number] Cosigned by: [id number] Admin: 03/15/19 03:55 Dose: 1,500 units/hr, 30 mls/hr Documented by: [id number] Cosigned by: [id number] Titration: 03/15/19 03:55 Dose: 1,500 units/hr, 30 mls/hr Documented by: [id number] Cosigned by: [id number] Titration: 03/14/19 21:00 Dose: 1,500 units/hr, 30 mls/hr Documented by: [id number] Cosigned by: [id number] Titration: 03/14/19 19:08 Dose: 1,500 units/hr, 30 mls/hr Documented by: [id number] Cosigned by: [id number] Admin: 03/14/19 13:59 Dose: 1,500 units/hr, 30 mls/hr Documented by: [id number] Cosigned by: [id number] Famotidine 20 mg/ Syringe 5 mls @ 2.5 mls/min IV BID [facility] Stop: 04/14/19 03:29 Last Admin: 03/16/19 09:26 Dose: 2.5 mls/min Documented by: [id number] Admin: 03/15/19 21:04 Dose: 2.5 mls/min Documented by: [id number] Admin: 03/15/19 08:56 Dose: 2.5 mls/min Documented by: [id number] Admin: 03/15/19 03:53 Dose: 2.5 mls/min Documented by: [id number] Dexmedetomidine HCl 200 mcg/ (Sodium Chloride) 50 mls @ 0 mls/hr IV .Q0M [facility]; Protocol Stop: 03/19/19 09:29 Last Titration: 03/16/19 07:04 Dose: 0 mcg/kg/hr, 0 mls/hr Documented by: [id number] Admin: 03/16/19 07:04 Dose: Not Given Documented by: [id number] Titration: 03/16/19 02:08 Dose: 0 mcg/kg/hr, 0 mls/hr Documented by: [id number] Admin: 03/16/19 00:51 Dose: 1 mcg/kg/hr, 23.9 mls/hr Documented by: [id number] Cosigned by: [id number] Titration: 03/16/19 00:51 Dose: 1 mcg/kg/hr, 23.9 mls/hr Documented by: [id number] Cosigned by: [id number] Titration: 03/16/19 00:30 Dose: 1 mcg/kg/hr, 23.9 mls/hr Documented by: [id number] Titration: 03/16/19 00:15 Dose: 0.9 mcg/kg/hr, 21.5 mls/hr Documented by: [id number] Titration: 03/16/19 00:00 Dose: 0.7 mcg/kg/hr, 16.7 mls/hr Documented by: [id number] Titration: 03/15/19 23:45 Dose: 0.6 mcg/kg/hr, 14.3 mls/hr Documented by: [id number] Titration: 03/15/19 22:57 Dose: 0.5 mcg/kg/hr, 12 mls/hr Documented by: [id number] Admin: 03/15/19 21:59 Dose: 0.4 mcg/kg/hr, 9.6 mls/hr Documented by: [id number] Cosigned by: [id number] Titration: 03/15/19 21:59 Dose: 0.4 mcg/kg/hr, 9.6 mls/hr Documented by: [id number] Cosigned by: [id number] Titration: 03/15/19 19:12 Dose: 0.4 mcg/kg/hr, 9.6 mls/hr Documented by: [id number] Cosigned by: [id number] Titration: 03/15/19 18:50 Dose: 0.4 mcg/kg/hr, 9.6 mls/hr Documented by: [id number] Admin: 03/15/19 18:35 Dose: 0.2 mcg/kg/hr, 4.8 mls/hr Documented by: [id number] Cosigned by: [id number] Admin: 03/15/19 15:17 Dose: Not Given Documented by: [id number] Titration: 03/15/19 12:00 Dose: 0 mcg/kg/hr, 0 mls/hr Documented by: [id number] Titration: 03/15/19 10:02 Dose: 0.4 mcg/kg/hr, 9.6 mls/hr Documented by: [id number] Titration: 03/15/19 09:50 Dose: 0.3 mcg/kg/hr, 7.2 mls/hr Documented by: [id number] Admin: 03/15/19 09:36 Dose: 0.2 mcg/kg/hr, 4.8 mls/hr Documented by: [id number] Cosigned by: [id number] Pantoprazole Sodium 40 mg/ (Syringe) 10 mls @ 5 mls/min IV BID@0900,2100 [facility] Stop: 04/14/19 09:29 Last Admin: 03/15/19 09:36 Dose: 5 mls/min Documented by: [id number] Lorazepam (Ativan) 0.5 mg in 1 mls @ 1 mls/min IV NOW STA Stop: 03/15/19 23:41 Last Admin: 03/16/19 00:16 Dose: Not Given Documented by: [id number] Lorazepam (Ativan) 0.5 mg in 1 mls @ 1 mls/min IV NOW [facility] Stop: 03/16/19 01:38 Last Admin: 03/16/19 02:09 Dose: 1 mls/min Documented by: [id number] Lorazepam (Ativan) Confirm Administered Dose 2 mg .ROUTE .STK-MED ONE Stop: 03/15/19 23:44 Last Admin: 03/16/19 00:16 Dose: Not Given Documented by: [id number] Menthol (Nice) Confirm Administered Dose 24 isidoro BUCCAL .STK-MED ONE Stop: 03/16/19 20:28 Last Admin: 03/16/19 20:30 Dose: 1 isidoro Documented by: [id number] Metoprolol Succinate (Toprol Xl) 25 mg PO BID [facility] Stop: 04/15/19 11:59 Last Admin: 03/16/19 12:23 Dose: 25 mg Documented by: [id number] Miscellaneous () Confirm Administered Dose 1 ea .ROUTE .STK-MED ONE Stop: 03/14/19 10:54 Last Admin: 03/14/19 11:16 Dose: Not Given Documented by: [id number] [facility]) [facility] [place] Stop: 04/14/19 08:59 Last Admin: 03/15/19 09:05 Dose: Not Given Documented by: [id number] Pantoprazole Sodium (Protonix) [facility] [place] Stop: 04/16/19 08:59 Last Admin: 03/17/19 07:55 Dose: 20 mg Documented by: [id number] Propofol (Diprivan) Confirm Administered Dose 1,000 mg IV .STK-MED ONE Stop: 03/14/19 10:58 Last Admin: 03/14/19 11:36 Dose: Not Given Documented by: [id number] Rocuronium [place] (Zemuron) 100 mg IV ONCE [facility] Stop: 04/13/19 11:44 Last Admin: 03/14/19 11:13 Dose: 100 mg Documented by: [id number] Cosigned by: [id number] Critical Care Time Critical Care Time: Yes Total Critical Care Time: 120 I have personally spent greater than 120 minutes of critical care time in the direct management of this patient. This includes bedside care, interpretation of diagnostic studies, and testing, discussion with consultants, patient, and family members, and other required patient management activities. This 120 minutes is in excess of all separately billable procedures. Medical Decision Making Differential Diagnosis Differential diagnoses includes but is not limited to pneumonia, bronchitis, COPD/Asthma exacerbation, pneumothorax, pulmonary embolism, congestive heart failure, acute coronary syndrome, amongst others. Medical Records Attestation: I reviewed the patient's medical records. Home Medications Current Medication List: was personally reviewed by me Laboratory Data Attestation: I reviewed the patient's lab results. Result diagrams: 03/16/19 04:30 03/17/19 05:52 Lab Results 03/14/19 03/14/19 03/14/19 Range/Units 06:44 06:46 06:46 WBC (4.8-10.8) K/uL RBC (4.7-6.1) M/uL Hgb (14.0-18.0) g/dL Hct (42-52) % MCV (80-100) fL MCH (25-34) pg MCHC (32-36) g/dL RDW Std Deviation (36.4-46.3) fL RDW Coeff of Marilynn (11.5-14.5) % Plt Count (130-400) K/uL MPV (7.4-10.4) fL Immature Gran % (Auto) % Neut % (Auto) % Lymph % (Auto) % Nash % (Auto) % Eos % (Auto) % Baso % (Auto) % Immature Gran # (Auto) (0.00-0.02) K/uL Neut # (Auto) (1.4-6.5) K/uL Lymph # (Auto) (1.2-3.4) K/uL Nash # (Auto) (0.11-0.59) K/uL Eos # (Auto) (0-0.5) K/uL Baso # (Auto) (0-0.2) K/uL Absolute Nucleated RBC (0-0) K/uL Nucleated RBC % (auto) % PT 14.7 H (9.0-12.0) Seconds INR 1.5 H (0.9-1.1) APTT 26.2 (21.0-31.0) Seconds PTT Ratio 1.0 ABG pH (7.35-7.45) ABG pCO2 (35-46) mmHg ABG pO2 (80-95) mm/Hg ABG HCO3 (19-24) mmol/L ABG O2 Saturation (90-95) % ABG Base Excess (-9-1.8) mEq/L Billy Test (Pos) Barometric Pressure mm/Hg Oxygen Given Sodium 140 (136-145) mmol/L Potassium 5.8 H (3.5-5.1) mmol/L Chloride 110 H (98-107) mmol/L Carbon Dioxide 21 (21-32) mmol/L Anion Gap 9.0 (3-11) BUN 68 H (7-18) mg/dl Creatinine 3.34 H (0.6-1.4) mg/dl Est Cr Clr Drug Dosing Not Reportable Est GFR ( Amer) 19.5 Est GFR (Non-Af Amer) 16.8 BUN/Creatinine Ratio 20.3 H (10-20) Glucose 103 H (70-99) mg/dl Lactate (0.4-2.0) mmol/L Calcium 8.5 (8.5-10.1) mg/dl Phosphorus 7.6 H (2.5-4.9) mg/dl Magnesium 3.0 H (1.8-2.4) mg/dl Total Bilirubin 0.6 (0.2-1) mg/dl AST 88 H (15-37) U/L ALT 94 H (12-78) U/L Alkaline Phosphatase 124 H (45-117) U/L Troponin I < 0.015 (0-0.045) ng/ml NT-Pro-B Natriuret Pep 9003 H (0-1800) pg/ml Total Protein 7.6 (6.4-8.2) gm/dl Albumin 3.5 (3.4-5.0) gm/dl Globulin 4.1 H (2.5-4.0) gm/dl Albumin/Globulin Ratio 0.9 (0.9-2) Procalcitonin 0.12 (0-0.5) ng/ml Urine Color Urine Appearance (Clear) Urine pH (4.5-7.5) Ur Specific [place] (1.000-1.030) Urine Protein (Negative) Urine Glucose (UA) (Negative) Urine Ketones (Negative) Urine Blood (Negative) Urine Nitrite (Negative) Urine Bilirubin (Negative) Urine Urobilinogen (Negative) Ur Leukocyte Esterase (Negative) Urine WBC (Auto) (0-5) /hpf Urine RBC (Auto) (0-4) /hpf U Hyaline Cast (Auto) (0-5) /lpf U Epithel Cells (Auto) (0-5) /lpf Urine Bacteria (Auto) (Negative) Urine Yeast Urine Sperm (None Prsent) 03/14/19 03/14/19 03/14/19 Range/Units 06:46 06:47 06:48 WBC 8.13 (4.8-10.8) K/uL RBC 3.50 L (4.7-6.1) M/uL Hgb 11.7 L (14.0-18.0) g/dL Hct 37.0 L (42-52) % MCV 105.7 H (80-100) fL MCH 33.4 (25-34) pg MCHC 31.6 L (32-36) g/dL RDW Std Deviation 63.1 H (36.4-46.3) fL RDW Coeff of Marilynn 16.8 H (11.5-14.5) % Plt Count 288 (130-400) K/uL MPV 9.8 (7.4-10.4) fL Immature Gran % (Auto) 0.6 % Neut % (Auto) 73.6 % Lymph % (Auto) 14.3 % Nash % (Auto) 10.1 % Eos % (Auto) 1.2 % Baso % (Auto) 0.2 % Immature Gran # (Auto) 0.05 H (0.00-0.02) K/uL Neut # (Auto) 5.98 (1.4-6.5) K/uL Lymph # (Auto) 1.16 L (1.2-3.4) K/uL Nash # (Auto) 0.82 H (0.11-0.59) K/uL Eos # (Auto) 0.10 (0-0.5) K/uL Baso # (Auto) 0.02 (0-0.2) K/uL Absolute Nucleated RBC 0.08 H (0-0) K/uL Nucleated RBC % (auto) 1.0 % PT (9.0-12.0) Seconds INR (0.9-1.1) APTT (21.0-31.0) Seconds PTT Ratio ABG pH (7.35-7.45) ABG pCO2 (35-46) mmHg ABG pO2 (80-95) mm/Hg ABG HCO3 (19-24) mmol/L ABG O2 Saturation (90-95) % ABG Base Excess (-9-1.8) mEq/L Billy Test (Pos) Barometric Pressure mm/Hg Oxygen Given Sodium (136-145) mmol/L Potassium (3.5-5.1) mmol/L Chloride (98-107) mmol/L Carbon Dioxide (21-32) mmol/L Anion Gap (3-11) BUN (7-18) mg/dl Creatinine (0.6-1.4) mg/dl Est Cr Clr Drug Dosing Est GFR ( Amer) Est GFR (Non-Af Amer) BUN/Creatinine Ratio (10-20) Glucose (70-99) mg/dl Lactate 4.2 H* (0.4-2.0) mmol/L Calcium (8.5-10.1) mg/dl Phosphorus (2.5-4.9) mg/dl Magnesium (1.8-2.4) mg/dl Total Bilirubin (0.2-1) mg/dl AST (15-37) U/L ALT (12-78) U/L Alkaline Phosphatase (45-117) U/L Troponin I Cancelled (0-0.045) ng/ml NT-Pro-B Natriuret Pep (0-1800) pg/ml Total Protein (6.4-8.2) gm/dl Albumin (3.4-5.0) gm/dl Globulin (2.5-4.0) gm/dl Albumin/Globulin Ratio (0.9-2) Procalcitonin (0-0.5) ng/ml Urine Color Urine Appearance (Clear) Urine pH (4.5-7.5) Ur Specific [place] (1.000-1.030) Urine Protein (Negative) Urine Glucose (UA) (Negative) Urine Ketones (Negative) Urine Blood (Negative) Urine Nitrite (Negative) Urine Bilirubin (Negative) Urine Urobilinogen (Negative) Ur Leukocyte Esterase (Negative) Urine WBC (Auto) (0-5) /hpf Urine RBC (Auto) (0-4) /hpf U Hyaline Cast (Auto) (0-5) /lpf U Epithel Cells (Auto) (0-5) /lpf Urine Bacteria (Auto) (Negative) Urine Yeast Urine Sperm (None Prsent) 03/14/19 03/14/19 Range/Units 07:21 08:20 WBC (4.8-10.8) K/uL RBC (4.7-6.1) M/uL Hgb (14.0-18.0) g/dL Hct (42-52) % MCV (80-100) fL MCH (25-34) pg MCHC (32-36) g/dL RDW Std Deviation (36.4-46.3) fL RDW Coeff of Marilynn (11.5-14.5) % Plt Count (130-400) K/uL MPV (7.4-10.4) fL Immature Gran % (Auto) % Neut % (Auto) % Lymph % (Auto) % Nash % (Auto) % Eos % (Auto) % Baso % (Auto) % Immature Gran # (Auto) (0.00-0.02) K/uL Neut # (Auto) (1.4-6.5) K/uL Lymph # (Auto) (1.2-3.4) K/uL Nash # (Auto) (0.11-0.59) K/uL Eos # (Auto) (0-0.5) K/uL Baso # (Auto) (0-0.2) K/uL Absolute Nucleated RBC (0-0) K/uL Nucleated RBC % (auto) % PT (9.0-12.0) Seconds INR (0.9-1.1) APTT (21.0-31.0) Seconds PTT Ratio ABG pH 7.34 L (7.35-7.45) ABG pCO2 37 (35-46) mmHg ABG pO2 79 L (80-95) mm/Hg ABG HCO3 20 (19-24) mmol/L ABG O2 Saturation 94.2 (90-95) % ABG Base Excess -5.7 (-9-1.8) mEq/L Billy Test Pos (Pos) Barometric Pressure 740.3 mm/Hg Oxygen Given 4 L Sodium (136-145) mmol/L Potassium (3.5-5.1) mmol/L Chloride (98-107) mmol/L Carbon Dioxide (21-32) mmol/L Anion Gap (3-11) BUN (7-18) mg/dl Creatinine (0.6-1.4) mg/dl Est Cr Clr Drug Dosing Est GFR ( Amer) Est GFR (Non-Af Amer) BUN/Creatinine Ratio (10-20) Glucose (70-99) mg/dl Lactate (0.4-2.0) mmol/L Calcium (8.5-10.1) mg/dl Phosphorus (2.5-4.9) mg/dl Magnesium (1.8-2.4) mg/dl Total Bilirubin (0.2-1) mg/dl AST (15-37) U/L ALT (12-78) U/L Alkaline Phosphatase (45-117) U/L Troponin I (0-0.045) ng/ml NT-Pro-B Natriuret Pep (0-1800) pg/ml Total Protein (6.4-8.2) gm/dl Albumin (3.4-5.0) gm/dl Globulin (2.5-4.0) gm/dl Albumin/Globulin Ratio (0.9-2) Procalcitonin (0-0.5) ng/ml Urine Color Dark Yellow Urine Appearance Cloudy A (Clear) Urine pH 5.0 (4.5-7.5) Ur Specific [place] 1.031 H (1.000-1.030) Urine Protein 1+ H (Negative) Urine Glucose (UA) Negative (Negative) Urine Ketones Trace H (Negative) Urine Blood Trace H (Negative) Urine Nitrite Negative (Negative) Urine Bilirubin Negative (Negative) Urine Urobilinogen Negative (Negative) Ur Leukocyte Esterase Negative (Negative) Urine WBC (Auto) 5-10 H (0-5) /hpf Urine RBC (Auto) 5-10 H (0-4) /hpf U Hyaline Cast (Auto) 5-10 H (0-5) /lpf U Epithel Cells (Auto) >30 H (0-5) /lpf Urine Bacteria (Auto) 1+ H (Negative) Urine Yeast Not Reportable Urine Sperm Present A (None Prsent) Imaging Data Radiologist's Impression: Radiology results as stated below per my review and the radiologist's interpretation: XR chest 1V portable CLINICAL HISTORY: Sepsis COMPARISON STUDY: 11/17/2018 FINDINGS: There are postsurgical changes of midline sternotomy. The heart is enlarged. There is diffuse elevation of interstitium, likely secondary to mild pulmonary vascular congestion/fluid overload. More focal left basilar airspace opacities likely represent focal edema although a superimposed pneumonia cannot be excluded. There are no large pleural effusions.[ IMPRESSION: Cardiomegaly and radiographic evidence of mild congestive failure/fluid overload. More focal left basilar airspace opacities likely represent focal edema although a superimposed pneumonia cannot be excluded. Electronically signed by: Jered Hernández M.D. 03/14/2019 7:[address] head/brain wo con CLINICAL HISTORY: Acute change in mental status COMPARISON STUDY: June 26, 2017 TECHNIQUE: Axial CT of the brain is performed from the vertex to the skull base. IV contrast was not administered for this examination. A dose lowering technique was utilized adhering to the principles of ALARA. CT DOSE: 1237.86 mGy.cm FINDINGS: No intra or extra-axial mass lesions are visualized. There is no CT evidence of acute cortical infarction. There is no evidence of midline shift. There is no acute hemorrhage. No calvarial fractures are visualized. There are minimal white matter hypodensities likely on a small vessel basis. There is no evidence of pathologic ventricular dilatation. There is no evidence of acute sinusitis. The study is mildly compromised due to motion artifact. IMPRESSION: No acute intracranial findings Electronically signed by: Jered Hernández M.D. 03/14/2019 9:13 AM ECG Data Attestation: I personally reviewed and interpreted this ECG as follows: Indication: + altered mental status Rate (beats per minute): 51 Rhythm: + atrial fibrillation ECG Intervals/blocks: + Normal QRS and + Normal QT-c ECG ST segments: no ST depression and no ST elevation Blood Pressure Blood Pressure Findings: Elevated blood pressure Blood Pressure Disposition: further management by hospitalist MDM Narrative Pt here with increased WOB and hypoxia. Hypoxia improved with supplemental oxygen, however due to persistent confusion, son's history of recent sx and PMHx , pt started on Bipap. Pt with mild slow improvement. CXR appeared more consistent with CHF than pneumonia. Labs showed new ARF. Pt covered for possible CAP, and given lasix to help with diuresis. Nitro not given due to borderline BP's after Bipap started. Pt appeared improved for a time and case discussed with hospitalist for additional evaluaiton. While pt in the ER, I continued checking on him and he slowly appeared to be decompensating and mentation decreasing. I recontacted hospitalist and discussed need for likely intubation. No bed available and face boss in agreement with plan and also wanted repeat BMP due to no HD available should he worsen. Pt safely and carefully intubated in the ER and repeat BMP with slight improvement. Pt then changed to ICU bed. VS otherwise stable. Impression & Plan Altered mental status, Respiratory distress, Hypoxia, Acute renal failure, CHF (congestive heart failure) Discharge Plan Visit Data *Final* Discharge Date/Time: 03/14/19 11:52 Chief Complaint: Illness Stated Complaint: FLU,SHALLOW BREATHING ED Provider: Milagro Grijalva Discharge Problem: Altered mental status, Respiratory distress, Hypoxia, Acute renal failure, CHF (congestive heart failure) Patient Disposition: Admitted As Inpatient Discharge Instructions Interventions: ED Discharge Assessment Last Done: 03/14/19 11:52 Discharge Problem: Altered mental status Qualifiers: Altered mental status type: unspecified Qualified Code(s): R41.82 - Altered mental status, unspecified Acute renal failure Qualifiers: Acute renal failure type: unspecified Qualified Code(s): N17.9 - Acute kidney failure, unspecified CHF (congestive heart failure) Qualifiers: Heart failure type: unspecified Heart failure chronicity: acute on chronic Qualified Code(s): I50.9 - Heart failure, unspecified The scribe's documentation has been prepared under my direction and personally reviewed by me in its entirety. I confirm that the note above accurately reflects all work, treatment, procedures, and medical decision making performed by me.
--- NOTE | 2019-03-17 17:00 | Surgery Consultation ---
Date of Consultation March 17, 2019 History of Present Illness Attending Physician: Oral Exam Present Complaint: my upper tooth is very loose--"hanging on a thread" A detailed oral exam was completed. Soft tissue---all the tissue is WNL, except for area # 8 where the tissue is slightly inflamed from the fractured tooth # 8. Oral Care---Overall oral care is fair missing many upper teeth only teeth on upper are 8,9,10,11 has an upper partial flexible Valplast denture Occlusion---Class I with missing teeth on upper TMJ exam---No pop, clicking, pain, good ROM Periodontal exam---fair The soft tissue of the tongue, floor of mouth, gingival, palate (hard/soft) all WNL Neck is supple, FROM, Able to extend and flex neck w/o difficulty, no masses, no abnormalities. Plan: It looks like as the result of an emergency intubation that # 8 was fractured, The crown was loose and held on only by the gingival tissue. I removed this loose fractured crown to allow patient to eat. He sees a dentist in the [facility] for basic dental services, he has no local dentist. He will need to be referred to a local dentist for dental X-Rays and possible extraction of the remaining # 8 root. Once he is healed he will need a new partial upper denture as adding teeth to the Valplast material is not possible. The other upper remaining teeth are all stable and are not loose. Only injury is to # 8. I will inform the patient advocate of my findings. I gave the patients daughter my card. Allergies Allergy/AdvReac Type Severity Reaction Status Date / Time No Known Drug Allergies Allergy Verified 03/14/19 07:10 Home Medications Home Medications Medication Instructions Recorded Confirmed Type Prilosec OTC 20 mg PO QAM 12/30/17 03/14/19 History atorvastatin 80 mg PO HS 12/30/17 03/14/19 History citalopram [Celexa] 20 mg PO HS 12/30/17 03/14/19 History aspirin [Aspir-81] 81 mg PO QAM 04/23/18 03/14/19 History diltiazem HCl 120 mg PO QAM #30 cap 11/13/18 03/14/19 Rx ferrous sulfate 325 mg PO BID #60 tab 11/13/18 03/14/19 Rx isosorbide mononitrate 30 mg PO QAM #30 tab 11/13/18 03/14/19 Rx nitroglycerin 0.4 mg SUBLINGUAL Q5M PRN #1 btl 11/13/18 03/14/19 Rx cyanocobalamin (vitamin B-12) 1,000 mcg PO PM 11/17/18 03/14/19 History apixaban 5 mg tablet 5 mg PO BID #60 tab 12/11/18 03/14/19 Rx lisinopril 10 mg tablet 10 mg PO DAILY 12/11/18 03/14/19 History furosemide 40 mg tablet 40 mg PO DAILY PRN #30 tab 02/07/19 03/14/19 Rx amoxicillin 500 mg PO TID 03/14/19 03/14/19 History metoprolol tartrate 0 mg PO BID 03/14/19 03/14/19 History Patient History Medical History (Updated 03/17/19 @ 00:01 by Pao Huerta) A-fib (Chronic) Acute blood loss anemia 2/2 hematuria, had 2 units PRBCs during admission 02/28-03/03 Acute diastolic heart failure Acute hypoxemic respiratory failure Acute hypoxemic respiratory failure Acute kidney injury (Acute) Admitted [facility] 01/05-01/09 for obstruction uropathy/EDUARDA. Readmitted 02/28-03/03 for hematuria/acute blood loss anemia. Acute kidney injury Admitted to intensive care unit Anxiety (Chronic) CAD (coronary artery disease), [place] coronary artery Depression (Chronic) Elevated troponin (Resolved) Per discharge summary 01/09/18: "Likely because of EDUARDA , no ischemic concerns" Essential hypertension (Chronic) GERD (gastroesophageal reflux disease) (Chronic) Gross hematuria History of anesthesia reaction CONVULSIONS POST OP QUICK COMING AWAKE FROM CABG SURG 20 YRS AGO. DENIES SEIZURES, SAYS HE 'WOKE UP TOO QUICKLY' AND THEY PUT HIM BACK UNDER Hyperkalemia Hyperlipidemia Hypertension Indwelling Bernstein catheter present Lactic acidosis Obstructive uropathy (Acute) Caused EDUARDA, admitted [facility] 12/2017, discharged with Bernstein and then self- cathing. Caused injury self-cathing and was readmitted for blood loss. Surgical History H/O colonoscopy History of cardiac cath NO STENTS-20 YRS AGO History of cardioversion 2-[address] [facility] History of coronary artery bypass graft 2 VESSEL BYPASS 20 YRS AGO[place] [place] CABG [place] 2 Family History Brother Family history of esophageal cancer Other No pertinent family history Social History Preferred Language: Kos[place] Communication Ability: Effective Visual Impairment: No Limitations Ammonia Box Operator Required: No Beliefs That Will Affect Care: None marital status: Single Current Living Situation: Family Current Living Situation Comment: lives with son Feels Safe at Home: Yes Smoking Status: Never smoker Second Hand Exposure: No ; Hx Alcohol Use: No Hx Substance Use: No Results & Data Vital Signs (Past 12 Hours) Vital Signs Temp Pulse Pulse Pulse Pulse Pulse Resp 03/17/19 15:07 36.5 C 84 18 03/17/19 14:15 108 H 110 H 104 H 94 H 03/17/19 10:56 36.7 C 88 18 03/17/19 07:13 36.6 C 76 20 Resp Resp Resp Resp BP BP Pulse Ox 03/17/19 15:07 147/76 H 91 03/17/19 14:15 18 20 18 18 03/17/19 10:56 154/83 H 97 03/17/19 07:13 129/69 90 Pulse Ox Pulse Ox Pulse Ox Pulse Ox 03/17/19 15:07 03/17/19 14:15 95 85 L 91 94 03/17/19 10:56 03/17/19 07:13 PG Care Time/CCT Total # of Minutes Spent Total Time Spent with Patient: Total time spent is greater than 50% in coordination of care (as documented) at patient's floor/unit and/or counseling patient:
[2019-03-17] MEDS: CITALOPRAM 20 MG TAB PO SCH (20:06)
[2019-03-17] MEDS: ATORVASTATIN 40 MG TAB PO SCH (20:06)
[2019-03-17] MEDS: CYANOCOBALAMIN 500 MCG TABLET (VITAMIN B-12) PO SCH (20:07)
--- NOTE | 2019-03-17 23:25 | Hospitalist Progress Note ---
Date of Service March 17, 2019 Assessment & Plan (1) Acute diastolic CHF (congestive heart failure): Per son, eating more salty foods and unclear medical compliance. - Diuresing successfully -> Creatinine has been improving as well. Will continue to diurese until creatinine increases. - Continue Lasix 40mg IV BID (2) Hepatitis: Likely due to hepatic congestion on presentation. - Monitor (3) AMS (altered mental status): Metabolic encephalopathy in the setting volume overload. - Improving today (4) Acute on chronic renal insufficiency: Acute on chronic kIDNEY FAILURE STAGE IIIA Baseline Cr is 1.5 - 1.9. - Cr up to 3.5 on admission with hyperkalemia. - Improving with diuresis - Today is essentially at baseline at 1.5. (5) Hypertension: On diltiazem, Imdur, metoprolol, and Lasix at home. Unclear what he was taking. - Restarted oral beta-kenji on 03/16 - Restart lisinopril today as Cr has returned to normal; add others as needed. (6) Chronic atrial fibrillation: Initially self rate-controlled; on 03/16, his HR is edging up. - Stop heparin gtt; restart home anticoagulation - Restarted beta-kenji to control HR (7) CAD (coronary artery disease), [place] coronary artery: S/p CABG x 2 vessel (1997). Son reports the patient did not mention chest pain. Presently intubated. - Continue ASA, statin, beta-kenji - Restart Imdur as needed (8) Iron deficiency anemia: Baseline hgb varies widely from ~9 up to 14.4 in 01/2019. - Presently hgb is 11.7 and stable from yesterday - Continue iron (9) Anxiety: - Continue SSRI (10) Depression: As above (11) GERD (gastroesophageal reflux disease): On famotidine IV while intubated. - Return to home PPI (12) DVT prophylaxis: On apixaban for his afib Subjective Patient reports breathing better. He feels close to his baseline. his main concern is his loose tooth and is awaiting eval by maxillofacial. Review of Systems Review of Systems: All systems reviewed & are unremarkable except as noted in HPI & below Physical Exam Physical Exam: Constitutional: WD/WN, vitals as above Eyes: EOM intact bilaterally; no conjunctival abnormality ENMT: external ear and nose normal, oropharynx normal Neck: trachea midline, no thyromegaly normal visual inspection Respiratory: normal respiratory effort, lungs clear to auscultation no respiratory distress Cardiovascular: Rate/Rhythm: + tachycardic and + irregularly irregular Heart Sounds: normal S1 and normal S2 Vessels: no JVD Extremities: no edema Gastrointestinal (Abdomen): Inspection/Auscultation: abdomen normal to inspection; abdomen not distended Musculoskeletal: no cyanosis or clubbing, extremities motor strength 5/5 Skin: no rashes, warm and dry Neurologic: moves all extremities and awake Psychiatric: Orientation: alert, oriented to person and cooperative Results & Data Vital Signs (Past 12 Hours) Vital Signs Temp Pulse Pulse Pulse Pulse Pulse Resp 03/17/19 19:28 36.6 C 110 H 18 03/17/19 15:07 36.5 C 84 18 03/17/19 14:15 108 H 110 H 104 H 94 H Resp Resp Resp Resp BP Pulse Ox Pulse Ox 03/17/19 19:28 164/83 H 92 03/17/19 15:07 147/76 H 91 03/17/19 14:15 18 20 18 18 95 Pulse Ox Pulse Ox Pulse Ox 03/17/19 19:28 03/17/19 15:07 03/17/19 14:15 85 L 91 94 PG Care Time/CCT Total # of Minutes Spent Total Time Spent with Patient: Total time spent is greater than 50% in mash tub cooker rdination of care (as documented) at patient's floor/unit and/or counseling patient: (1) CAD (coronary artery disease), [place] coronary artery [place] vs. transplanted heart: [place] heart Associated angina: without angina Qualified Code(s): I25.10 - Atherosclerotic heart disease of [place] coronary artery without angina pectoris (2) Depression Depression Type: other depression Qualified Code(s): F32.89 - Other specified depressive episodes (3) GERD (gastroesophageal reflux disease) Esophagitis presence: esophagitis presence not specified Qualified Code(s): K21.9 - Gastro-esophageal reflux disease without esophagitis
[2019-03-18 07:13] LABS: Calcium 9.1 mg/dl (8.5-10.1); Creatinine Clr Calc Pharmacy 43.8 ml/min; Est GFR (African American) 50.5; Est GFR (Non-African American) 43.6; Magnesium 2.8 mg/dl (1.8-2.4); Potassium 4.1 mmol/L (3.5-5.1)
[2019-03-18 07:19] VITALS: BP 151/70; TEMP 97.9
[2019-03-18 07:23] LABS: Phosphorus 2.9 mg/dl (2.5-4.9)
[2019-03-18] MEDS: FERROUS SULFATE 325 MG TAB PO SCH (08:02)
[2019-03-18] MEDS: ASPIRIN 81 MG ECTAB PO SCH (08:02)
[2019-03-18] MEDS: lisinopriL 10 MG TAB PO SCH (08:03)
[2019-03-18] MEDS: APIXABAN 5 MG TABLET PO SCH (08:03)
[2019-03-18] MEDS: FUROSEMIDE 40 MG in SYRINGE 0 ML IV SCH (08:04)
[2019-03-18] MEDS: METOPROLOL TARTRATE 25 MG TAB PO SCH (08:04)
[2019-03-18] MEDS: POLYETHYLENE (MIRALAX) 17 GM PACK PO SCH (08:04)
[2019-03-18] MEDS: DOCUSATE SODIUM 100 MG CAP PO SCH (08:58)
[2019-03-18] MEDS ORDERED: PANTOprazole 40 MG TAB PO SCH (09:00)
[2019-03-18 14:24] VITALS: O2SAT 95
--- NOTE | 2019-03-18 14:36 | Discharge Summary ---
Date of Service date of admission - March 14, 2019 date of discharge - March 18, 2019 Admission HPI Per Admitting Provider 78-year-old male presents with his son for shortness of breath. The patient's son moved in with his father to help with overall care. Son says that the oni ent has not been feeling well for about 2 days. Primarily describes as weakness and unable to do basic activities such as getting dressed or walking on stairs. Has been complaining of being very thirsty and thus is constantly asking for fluids. Good solid p.o. intake/appetite. He may have had some dietary indiscretion and increased salt intake over the past couple weeks. Not complaining of any new pain, but complains of chronic back pain. Noted a bit of dry cough during the same time. Patient presents this morning because his lips appeared purple when patient first saw him this AM. At the time of this H&P, patient is on BiPAP. He is somewhat unintelligible in his answers but denies any pain. He says his breathing is been up and down for the past few days. He knows his name, that he is in the hospital in [place], but says it is 2009. Principal Diagnosis acute hypoxic respiratory failure 2nd to acute/chronic diastolic CHF Discharge Exam Constitutional well developed and well nourished; no acute distress and no altered mental status ENMT external ear and nose normal, oropharynx normal Respiratory normal respiratory effort, lungs clear to auscultation Cardiovascular Rate/Rhythm: regular rate and + irregularly irregular Heart Sounds: normal S1 and normal S2; no murmur Vessels: posterior tibial pulses present and dorsalis pedis pulses present; no JVD Extremities: no edema Gastrointestinal (Abdomen) normal bowel sounds, soft, nontender, no hepatosplenomegaly Psychiatric A+Ox3, euthymic affect Discharge Data Allergies Allergy/AdvReac Type Severity Reaction Status Date / Time No Known Drug Allergies Allergy Verified 03/24/19 10:36 Consultations 1. critical care 2. oromaxillofacial surgery - August Pozo DMD Procedures Performed Intubation/mechanical ventilation Ordered Studies 1. CT head/brain - no acute findings. 2. US liver - IMPRESSION: 1. Mild nodularity liver surface which raises the possibility of cirrhosis. 2. No gallstones or biliary ductal dilatation. 3. Nonspecific mild gallbladder wall thickening and distention. No pericholecystic fluid. 4. Small right pleural effusion. Hospital Course (1) Acute hypoxemic respiratory failure: 2nd acute/chronic diastolic CHF. While being evaluated and treated in the ER at presentation his respiratory status worsened. He was subsequently intubated and placed on the vent. Following diuresis he was successfully extubated from the vent on the AM of 03/15/19. O2 was then slowly weaned off as he diuresed. He had no O2 requirement at time of discharge. (2) Acute on chronic diastolic CHF (congestive heart failure): Diuresed well during his stay. Discharge weight was 90.9kg. He will take 40mg of lasix daily until he sees Ms Mcmullen in the CHF clinic. He will continue beta kenji with metoprolol. Counseled on the importance of fluid & salt restriction along with daily weights. Decompensated diastolic CHF was due to dietary indiscretion. LINDEN was held at discharge. (3) Acute kidney injury: Peak Cr 3.3, improving to 1.5 at discharge. EDUARDA was 2nd to decompensated CHF. (4) Altered mental status: 2nd to hypoxemia from his respiratory failure. Improved with resolution of his respiratory failure. (5) Chronic atrial fibrillation: Rates were well-controlled while hospitalized. He will remain on diltiazem, metoprolol, and eliquis twice daily. (6) Hypertension: Controlled while hospitalized. (7) BPH (benign prostatic hyperplasia): No issues while hospitalized. (8) Chronic kidney disease: Stage 3. Baseline Cr ~1.5. (9) CAD (coronary artery disease), [place] coronary artery: NO ACS while hospitalized. Remains on asa, statin, beta kenji, and imdur. LINDEN was held at discharge due to recent EDUARDA. (10) Essential hypertension: Controlled during the hospital stay. LINDEN to be held at discharge due to CKD and recent EDUARDA. All other meds continued. Metoprolol dose was adjusted to 50mg BID while here. (11) Fracture of tooth: #8, maxillary tooth. Likely due to intubation for acute hypoxic respiratory failure. Seen by Dr August Pozo, oral-maxillary facial surgery. He advised that Mr Dhillon f/u with his local dentist for this. (12) Hyperkalemia: 2nd to EDUARDA - resolved. LINDEN inhibitor held at discharge. Total Time Total Time Spent Total Time Spent (In Minutes): 40 Total Time Includes: Examination of the Patient, Discharge Planning, Medication Reconciliation and Communication With Other Providers Discharge Plan Discharge Items Patient Disposition: Home - Self-Care Reason For Visit: RESPIRATORY FAILURE/CONGESTIVE HEART FAILURE Discharge Diagnosis: 1. Acute respiratory failure with need to go on respirator due to CHF (congestive heart failure). Acute respiratory failure resolved. Fluid build-up from CHF improved. 2. Fractured/broken tooth Condition on Discharge: Good Activity: Resume your previous activity Non-emergency contact: Primary Care Provider and School Commissioner Call non-emergency contact if: you have any medication questions, your symptoms worsen and you have a fever Follow-up/Referrals: Phil Hicks MD [Primary Care Provider] - (Please, follow up with Dr. Munira Romeo. *A nurse from hs office will call you with the appointment details. If you have any questions, call his office at [phone].) Julia Mcmullen PA-C [Physician Plate Driller] - 03/24/19 10:30 am (Please, follow up at [facility] Office with Jazmín Mcmullen PA-C on SundayMarch 31 at 9:30 am. *The office is located in [address] of [facility], next to this hospital. If you need to change this appointment, call the office at [phone]. ) Diet: Carb Consistent or DM2 and Heart Healthy Fluids: 1500ml (6 cups) Diet Texture: Dental soft (bite-sized) Addtl Attending Provider Instructions: You were admitted to the hospital due to congestive heart failure (fluid retention in the lungs). The congestive heart failure made your breathing so poor that you ended up needing intubation and being placed on the ventilator short-term. With diuresis (removal of fluid from the boy) your breathing improved and you came off the vent successfully. In total you lost between 20-30 pounds of fluid while here. Recommendations - 1. START lasix (furosemide) 40mg once daily every morning to keep fluid out of your system. Ms Mcmullen in the CHF clinic may change this when she sees you next week. 2. REDUCE your metoprolol to 50mg twice a day for your heart. 3. HOLD your lisinopril until you see Ms Mcmullen in the CHF clinic. 4. Watch your total salt intake. No more than 2gm (2000mg) in a 24 hour period. To give you an idea about salt - a typical can of soup has nearly 1000mg of salt in it. 5. See "congestive heart failure" instructions below. 6. Our physical therapist recommended outpatient PT for general strengthening & conditioning. You could ask Ms Mcmullen for a referral to our "cardiac rehab" program that is available at [facility]. This is an excellent program for folks with heart disease. 7. Please see your personal dentist [facility] (within a week) for the fractured/broken tooth. Please adhere to a very soft, minced & moist diet to allow easier chewing/swallowing. Follow-up -- see separate section Return to [facility] if -- * you have worsening shortness of breath * you have chest pains * you have to use your nitroglycerin tablets for chest pain * you have concerns about fluid retention * you have fever over 100.5 degrees * any other concerns Addtl Component Assembler Provider Instructions: Congestive Heart Failure Instructions: Call your Primary Care doctor if any of the following symptoms or problems start or get worse: * Shortness of breath or difficulty breathing * Wake up at night short of breath * Chest pain * Cough * Swelling of your hands, feet, or legs * More fatigued or tired with your normal activity * Palpitations - sudden fast heart beats WEIGHT * Weigh yourself every morning after using the bathroom. * Use the same scale. * Wear the same amount of clothing. * Write your weight down on a chart. * Call your Primary Care doctor if you gain more than 2-3 pounds in 1-2 days. MEDICATIONS * Use this discharge instruction sheet for medication instructions. * Take your medications at the time your doctor ordered. * Do not skip a dose of your medicines. * If you miss a dose of medicine, take it as soon as possible, but DO NOT DOUBLE A DOSE. * Read your medicine information when you get home. * Know all of the side effects of your medicine. If in doubt, ask your pharmacist * Call your Primary Care doctor's office if you have any side effects. * Be sure all of your doctors know what medicine and herbs you take (including cold, flu, and herbal medicine). Take the following with you to your follow-up doctor appointments: * Weight Chart * Medication List * List of questions Do not drink excessive alcohol, beer or wine. Pending Studies at Discharge: No Stand-Alone Forms: My [facility], Smoking Cessation Medications and DC Order Prescriptions: Continued Eliquis 5 mg tablet 5 mg PO BID Qty: 60 RF: 2 citalopram [Celexa] 20 mg Tablet 20 mg PO HS RF: 0 Prilosec OTC 20 mg Tablet,Delayed Release (Dr/Ec) 20 mg PO QAM RF: 0 cyanocobalamin (vitamin B-12) 1,000 mcg capsule 1,000 mcg PO PM RF: 0 atorvastatin 80 mg Tablet 80 mg PO HS Qty: 30 RF: 5 isosorbide mononitrate 30 mg Tablet Extended Release 24 Hr 30 mg PO QAM Qty: 30 RF: 5 nitroglycerin 0.4 mg tablet, sublingual 0.4 mg sublingual Q5M PRN (Reason: chest pain) Qty: 1 RF: 0 diltiazem HCl 120 mg Capsule,Extended Release 24hr 120 mg PO QAM Qty: 30 RF: 5 ferrous sulfate 325 mg (65 mg iron) tablet 325 mg PO BID Qty: 60 RF: 2 Changed metoprolol tartrate 100 mg tablet 50 mg PO BID Qty: 60 RF: 0 Discontinued lisinopril 10 mg tablet 10 mg PO DAILY RF: 0 furosemide 40 mg tablet 40 mg PO DAILY PRN (Reason: edema) Qty: 30 RF: 5 amoxicillin 500 mg capsule 500 mg PO TID RF: 0 No Action aspirin 325 mg tablet 325 mg PO DAILY RF: 0 furosemide 40 mg tablet 20 mg PO QAM Qty: 30 RF: 3 Discharge Orders: Discharge Order (Routine); Ordered 03/18/19 Ordered By: Maged Brunson Admission Data Admit Date/Time: 03/14/19 10:59 Attending Provider: Maged Brunson Admit Provider: Praneeth Marquez Primary Care Provider: Phil Hicks Other Providers: Praneeth Marquez ; Brayden Vuong ; August Pozo Other Interventions: Discharge Summary Assessment (RN) Last Done: 03/18/19 14:38 DC Date/Time DO NOT enter until pt leaves facility: 03/18/19 15:17
[2019-03-18 14:42] VITALS: PULSE 137
== END 2019-03-18 15:17 | disposition home or self-care (01) | DRG 208 ==
LOC: ED 06:23 → SUATTDRO 10:59 → 1E 10:59 → 2N 03-16 12:56

== ENCOUNTER 2020-10-03 00:26 | Observation (INO) ==
--- NOTE | 2020-10-03 00:59 | Emergency Department Note ---
Impression & Plan Fall, Acute alteration in mental status ED Provider Note NAME: SHARON HELMS AGE: 80 SEX: M ARRIVES VIA: Walk-In INFORMANT: Patient and his son ED PROVIDER(S): Mara Box DO CHIEF COMPLAINT: Fall PLAN: Disposition: Admit to the [facility] Condition: Stable MEDICAL DECISION MAKING: This is a 80-year-old male patient who presents to the emergency department after being found on the floor by his son. Patient was recently diagnosed with Lyme disease and has been having hip pain and leg pain. He took a 2-week course of antibiotics and recently finished it. The patient is unsure how he ended up on the floor tonight. He seems extremely weak and has an altered mental status with some slurred speech. Although, the patient's son explains that when he becomes ill this is how he acts at times. Neurological exam is nonfocal. CT scan of the brain shows questionable new cerebellar infarct. On physical exam, the patient has signs of dehydration. He was bolused with normal saline solution. Triage Nursing notes reviewed and agree with them. Additional history obtained from the son who is at the bedside Prior medical records reviewed Vital Signs: reviewed and remarkable for hypertension and tachypnea Differential diagnosis: Generalized weakness, stroke, dehydration, UTI, hypoglycemia ED treatment: IV normal saline bolus Diagnostics interpreted by me: ECG: Atrial flutter with variable AV block at a rate of 91. The patient has prolonged QT at 506 ms. This is unchanged from an EKG from March 2019 Cardiac Monitoring: Atrial fibrillation at a rate of 86 Laboratory studies: See below Imaging studies: As per stat rad CT head: No ICH, mass-effect or midline shift. Age indeterminant on the provided images hypodensity and small infarcts in the left inferior cerebellar hemisphere. Consider MR for further evaluation. No skull fracture. Normal aeration of pa ranasal sinuses and mastoid air cells. Portable chest x-ray: As per my interpretation: Mild pulmonary vascular congestion HPI: 80/M arrives for evaluation of fall. The patient was found on the floor by his son but does not know how he got there. Patient recently finished a course of antibiotics for Lyme disease and has been having bilateral hip pain and leg pain. He saw his PCP 3 days ago for routine checkup and had normal blood work at that time. Patient presents here with some mild confusion and slight slurred speech. The son states that he typically sounds this way when he is getting sick or is tired. The patient has been eating normally but has not been drinking very much according to the son. The patient has no complaints at all at this time. ROS: See above HPI for pertinent positives & negatives. A total of 10 systems reviewed and were otherwise negative. PAST MEDICAL HISTORY:See Below PAST SURGICAL HISTORY:See Below FAMILY HISTORY:See Below SOCIAL HISTORY:See Below HOME MEDICATIONS:See list ALLERGIES:None VITALS:See Below PHYSICAL EXAMINATION: HEENT: Head - normocephalic and atraumatic. Pupils are equal, round, and reactive to light. Extraocular eye muscles are intact and sclera are anicteric. Nose - moist nasal mucosa without discharge. Mouth -extremely dry buccal mucosa. Oropharynx is nonerythematous and there is no tonsillar exudate or edema noted. Neck: Supple; no JVD, nuchal rigidity, cervical lymphadenopathy, or auscultated bruits. Heart: Regular rate and rhythm. There is a normal S1 and S2 with no murmurs, clicks, or gallops appreciated. Lungs: Clear to auscultation bilaterally with no wheezes, rales, or rhonchi. Abdomen: Soft, completely nontender, nondistended, with good bowel sounds. There are no palpable pulsatile masses or hepatosplenomegaly. There is no guarding, rigidity, or rebound noted. Extremities: No evidence of cyanosis, clubbing, or edema. There are easily palpable peripheral pulses. Neuro:The patient appears somewhat lethargic and slow to answer questions. He is oriented to month. Muscle strength is 5/5 in all 4 extremities. The patient has equal controls engineer strength and equal pedal push and pull. There are no cerebellar signs. ED COURSE: Times/Reassessments: 0040: Patient was evaluated in room C8. A complete history and physical was performed. An order was placed for continuous cardiac monitoring. The patient is in a normal sinus rhythm at a rate of 86. A twelve-lead EKG was obtained as described above. IV lock was initiated and labs were drawn as above. A portable chest x-ray was performed. The patient was bolused with 500 cc of normal saline solution. He went for CT scan of the brain. I reviewed the results of the laboratory studies and chest x-ray with the patient and his son. The patient was able to answer questions appropriately but was still somewhat slow to answer them. On reevaluation, I was able to review the results of the CT scan with the patient and explained that he would require further testing to include MRI of the brain and evaluation by the hospitalist for further inpatient care. Mara Box DO Past Med/Surg History Medical History (Updated 10/04/20 @ 07:11 by Mara Box DO) Aortic insufficiency BPH with obstruction/lower urinary tract symptoms CAD (coronary artery disease), [place] coronary artery Chronic diastolic heart failure Chronic kidney disease History of anesthesia reaction CONVULSIONS POST OP QUICK COMING AWAKE FROM CABG SURG 20 YRS AGO. DENIES SEIZURES, SAYS HE 'WOKE UP TOO QUICKLY' AND THEY PUT HIM BACK UNDER Hyperlipidemia Hypertension Mitral regurgitation Permanent atrial fibrillation Surgical History H/O colonoscopy S/P CABG x 2 S/P TURP Family History Brother Family history of esophageal cancer Mother , age 73 of a stroke and [place] Myocardial infarction Stroke Father , age 31 in a gas explosion No problems noted. 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 [employer] Feels Safe at Home: Yes Assistive Devices: None Allergies Allergies Allergy/AdvReac Type Severity Reaction Status Date / Time No Known Allergies Allergy Verified 10/03/20 01:40 Home Meds Home Medications Medication Instructions Recorded Confirmed citalopram [Celexa] 20 mg PO HS 12/30/17 10/03/20 omeprazole magnesium [Prilosec OTC] 20 mg PO QAM 12/30/17 10/03/20 aspirin 81 mg tablet,delayed 81 mg PO DAILY 05/21/19 10/03/20 release rosuvastatin 40 mg tablet 40 mg PO DAILY 09/17/19 10/03/20 cyanocobalamin (vitamin B-12) 100 100 mcg PO DAILY 10/15/19 10/03/20 mcg tablet zolpidem 5 mg tablet 5 mg PO DAILY tab 04/09/20 10/03/20 acetaminophen [Tylenol] 650 mg PO DIRECTED PRN 10/03/20 10/03/20 Previous Rx's Medication Instructions Recorded apixaban 5 mg tablet 5 mg PO BID #60 tab 12/11/18 diltiazem HCl 120 mg PO QAM #30 cap 03/18/19 nitroglycerin 0.4 mg SUBLINGUAL Q5M PRN #1 btl 03/18/19 isosorbide mononitrate 30 mg 30 mg PO QAM #30 tab 06/22/20 tablet,extended release 24 hr furosemide 40 mg tablet 20 mg PO QAM #90 tab 09/16/20 metoprolol tartrate 50 mg tablet 50 mg PO BID #180 tab 09/16/20 Results & Data (ED) Vital Signs Vital Signs - 24 hr 10/03/20 00:27 10/03/20 00:34 10/03/20 00:54 Temperature 36.8 C Temperature Source Temporal Artery Scan Pulse Rate 86 Pulse Rate from SpO2 Sensor Respiratory Rate 20 24 Blood Pressure 172/80 H Blood Pressure Mean 110 Pulse Oximetry 94 91 Oxygen Delivery Method Room Air Room Air Room Air Oxygen Flow Rate Sepsis Recent Fever Within 48 Hours No Sepsis New/Unexplained Change in Mental Status N/A Sepsis Action Taken by Nursing No Action Required 10/03/20 00:56 10/03/20 01:00 10/03/20 01:30 Temperature Temperature Source Pulse Rate 90 90 86 Pulse Rate from SpO2 Sensor 86 91 H 89 Respiratory Rate 32 H 26 H 22 Blood Pressure 171/87 H Blood Pressure Mean 115 Pulse Oximetry 92 91 91 Oxygen Delivery Method Oxygen Flow Rate Sepsis Recent Fever Within 48 Hours Sepsis New/Unexplained Change in Mental Status Sepsis Action Taken by Nursing 10/03/20 02:00 10/03/20 02:14 10/03/20 02:31 Temperature Temperature Source Pulse Rate 84 87 88 Pulse Rate from SpO2 Sensor Respiratory Rate 20 24 19 Blood Pressure 141/98 H 141/98 H 116/63 Blood Pressure Mean 112 112 80 Pulse Oximetry 99 Oxygen Delivery Method Nasal Cannula Oxygen Flow Rate 2 Sepsis Recent Fever Within 48 Hours Sepsis New/Unexplained Change in Mental Status Sepsis Action Taken by Nursing Laboratory Data Result diagrams: 10/04/20 05:49 10/04/20 05:49 Lab Results 10/03/20 10/03/20 10/03/20 Range/Units 01:24 01:24 02:15 WBC 6.62 (4.8-10.8) K/uL RBC 4.39 L (4.7-6.1) M/uL Hgb 15.1 (14.0-18.0) g/dL Hct 43.6 (42-52) % MCV 99.3 (80-100) fL MCH 34.4 H (25-34) pg MCHC 34.6 (32-36) g/dL RDW Std Deviation 51.7 H (36.4-46.3) fL RDW Coeff of Marilynn 14.4 (11.5-14.5) % Plt Count 256 (130-400) K/uL MPV 9.4 (7.4-10.4) fL Immature Gran % (Auto) 0.3 % Neut % (Auto) 71.6 % Lymph % (Auto) 17.8 % [place] % (Auto) 8.0 % Eos % (Auto) 1.8 % Baso % (Auto) 0.5 % Neut # (Auto) 4.74 (1.4-6.5) K/uL Lymph # (Auto) 1.18 L (1.2-3.4) K/uL [place] # (Auto) 0.53 (0.11-0.59) K/uL Eos # (Auto) 0.12 (0-0.5) K/uL Baso # (Auto) 0.03 (0-0.2) K/uL Immature Gran # (Auto) 0.02 (0.00-0.02) K/uL Sodium 137 (136-145) mmol/L Potassium 4.7 (3.5-5.1) mmol/L Chloride 109 H (98-107) mmol/L Carbon Dioxide 25 (21-32) mmol/L Anion Gap 3.0 (3-11) BUN 35 H (7-18) mg/dl Creatinine 1.46 H (0.6-1.4) mg/dl Est Cr Clr Drug Dosing 46.1 ml/min Est GFR ( Amer) 52.3 ml/min Est GFR (Non-Af Amer) 45.1 ml/min BUN/Creatinine Ratio 24.0 H (10-20) Glucose 110 H (70-99) mg/dl Calcium 9.0 (8.5-10.1) mg/dl Total Bilirubin 0.4 (0.2-1) mg/dl AST 24 (15-37) U/L ALT 38 (12-78) U/L Alkaline Phosphatase 97 (45-117) U/L Troponin I < 0.015 (0-0.045) ng/ml NT-Pro-B Natriuret Pep 1364 (0-1800) pg/ml Total Protein 8.0 (6.4-8.2) gm/dl Albumin 4.1 (3.4-5.0) gm/dl Globulin 3.9 (2.5-4.0) gm/dl Albumin/Globulin Ratio 1.1 (0.9-2) TSH 2.480 (0.300-4.500) uIu/ml Urine Color Yellow Urine Appearance Clear (Clear) Urine pH 5.0 (4.5-7.5) Ur Specific [place] 1.032 H (1.000-1.030) Urine Protein Trace H (Negative) Urine Glucose (UA) Negative (Negative) Urine Ketones Negative (Negative) Urine Blood Negative (Negative) Urine Nitrite Negative (Negative) Urine Bilirubin Negative (Negative) Urine Urobilinogen Negative (Negative) Ur Leukocyte Esterase 1+ H (Negative) Urine WBC (Auto) 10-30 H (0-5) /hpf Urine RBC (Auto) 0-4 (0-4) /hpf U Hyaline Cast (Auto) 1-5 (0-5) /lpf U Epithel Cells (Auto) 10-20 H (0-5) /lpf Urine Bacteria (Auto) Negative (Negative) COVID-19 Eval Order SARS-CoV-2 (PCR) (Negative) 10/03/20 10/03/20 Range/Units 03:43 03:43 WBC (4.8-10.8) K/uL RBC (4.7-6.1) M/uL Hgb (14.0-18.0) g/dL Hct (42-52) % MCV (80-100) fL MCH (25-34) pg MCHC (32-36) g/dL RDW Std Deviation (36.4-46.3) fL RDW Coeff of Marilynn (11.5-14.5) % Plt Count (130-400) K/uL MPV (7.4-10.4) fL Immature Gran % (Auto) % Neut % (Auto) % Lymph % (Auto) % [place] % (Auto) % Eos % (Auto) % Baso % (Auto) % Neut # (Auto) (1.4-6.5) K/uL Lymph # (Auto) (1.2-3.4) K/uL [place] # (Auto) (0.11-0.59) K/uL Eos # (Auto) (0-0.5) K/uL Baso # (Auto) (0-0.2) K/uL Immature Gran # (Auto) (0.00-0.02) K/uL Sodium (136-145) mmol/L Potassium (3.5-5.1) mmol/L Chloride (98-107) mmol/L Carbon Dioxide (21-32) mmol/L Anion Gap (3-11) BUN (7-18) mg/dl Creatinine (0.6-1.4) mg/dl Est Cr Clr Drug Dosing ml/min Est GFR ( Amer) ml/min Est GFR (Non-Af Amer) ml/min BUN/Creatinine Ratio (10-20) Glucose (70-99) mg/dl Calcium (8.5-10.1) mg/dl Total Bilirubin (0.2-1) mg/dl AST (15-37) U/L ALT (12-78) U/L Alkaline Phosphatase (45-117) U/L Troponin I (0-0.045) ng/ml NT-Pro-B Natriuret Pep (0-1800) pg/ml Total Protein (6.4-8.2) gm/dl Albumin (3.4-5.0) gm/dl Globulin (2.5-4.0) gm/dl Albumin/Globulin Ratio (0.9-2) TSH (0.300-4.500) uIu/ml Urine Color Urine Appearance (Clear) Urine pH (4.5-7.5) Ur Specific [place] (1.000-1.030) Urine Protein (Negative) Urine Glucose (UA) (Negative) Urine Ketones (Negative) Urine Blood (Negative) Urine Nitrite (Negative) Urine Bilirubin (Negative) Urine Urobilinogen (Negative) Ur Leukocyte Esterase (Negative) Urine WBC (Auto) (0-5) /hpf Urine RBC (Auto) (0-4) /hpf U Hyaline Cast (Auto) (0-5) /lpf U Epithel Cells (Auto) (0-5) /lpf Urine Bacteria (Auto) (Negative) COVID-19 Eval Order Covid19 at [facility] SARS-CoV-2 (PCR) NEGATIVE (Negative) Administered Medications Apixaban (Apixaban 5 Mg Tablet) 5 mg PO BID [facility] Stop: 11/02/20 20:59 Last Admin: 10/03/20 20:37 Dose: 5 mg Documented by: [id number] Citalopram Hydrobromide (Citalopram 20 Mg Tab) 20 mg PO HS [facility] Stop: 11/02/20 20:59 Last Admin: 10/03/20 20:37 Dose: 20 mg Documented by: [id number] Diltiazem HCl (Diltiazem Hcl 120 Mg Capcr) [facility] Stop: 11/02/20 08:59 Last Admin: 10/03/20 10:02 Dose: 120 mg Documented by: [id number] Furosemide (Furosemide 20 Mg Tab) [facility] Stop: 11/02/20 08:59 Last Admin: 10/03/20 10:02 Dose: 20 mg Documented by: [id number] Isosorbide Mononitrate (Isosorbide [place] Extended Rel 30 Mg Tabcr) 30 mg PO QAM [facility] Stop: 11/02/20 08:59 Last Admin: 10/03/20 10:03 Dose: 30 mg Documented by: [id number] Metoprolol Tartrate (Metoprolol Tartrate 50 Mg Tab) 50 mg PO BID [facility] Stop: 11/02/20 08:59 Last Admin: 10/03/20 20:37 Dose: 50 mg Documented by: [id number] Admin: 10/03/20 10:02 Dose: 50 mg Documented by: [id number] Pantoprazole Sodium (Pantoprazole 40 Mg Tab) 40 mg PO QAM [facility] Stop: 11/02/20 08:59 Last Admin: 10/03/20 10:01 Dose: 40 mg Documented by: [id number] Rosuvastatin Calcium (Rosuvastatin Calcium 20 Mg Tab) 40 mg PO DAILY [facility] Stop: 11/02/20 08:59 Last Admin: 10/03/20 10:03 Dose: 40 mg Documented by: [id number] Discontinued Medications Clopidogrel Bisulfate (Clopidogrel Bisulfate 75 Mg Tab) 75 mg PO QAM [facility] Stop: 11/02/20 08:59 Last Admin: 10/03/20 10:04 Dose: 75 mg Documented by: [id number] Gadobutrol (Gadobutrol 10ml Vial) 9 ml IV ONCE ONE Stop: 10/03/20 12:24 Last Admin: 10/03/20 12:23 Dose: 9 ml Documented by: [id number] Hydroxyzine HCl (Hydroxyzine Hcl 25 Mg Tab) 25 mg PO NOW STA Stop: 10/03/20 20:46 Last Admin: 10/03/20 21:35 Dose: 25 mg Documented by: [id number] Sodium Chloride (Nss 1000ml) 500 mls @ 999 mls/hr IV .Q31M ONE Stop: 10/03/20 03:36 Last Infusion: 10/03/20 03:55 Dose: 0 mls/hr Documented by: [id number] Admin: 10/03/20 03:10 Dose: 999 mls/hr Documented by: [id number] Discharge Plan Visit Data Chief Complaint: Fall Stated Complaint: FOUND HIM LAYING ON FLOOR, NOT COHERENT ED Provider: Mara Box Discharge Problem: Fall, Acute alteration in mental status Patient Disposition: Admitted As Inpatient Discharge Instructions Interventions: ED Discharge Assessment Last Done: 10/03/20 05:43 Discharge Problem: Fall Qualifiers: Encounter type: initial encounter Qualified Code(s): W19.XXXA - Unspecified fall, initial encounter
[2020-10-03 01:36] LABS: Basophils # (auto) 0.03 K/uL (0-0.2); Basophils % (auto) 0.5 %; Eosinophils # (auto) 0.12 K/uL (0-0.5); Eosinophils % (auto) 1.8 %; Hematocrit (blood only) 43.6 % (42-52); Hemoglobin 15.1 g/dL (14.0-18.0); Immature Granulocytes # (auto) 0.02 K/uL (0.00-0.02); Immature Granulocytes % (auto) 0.3 %; Lymphocytes # (auto) 1.18 K/uL (1.2-3.4); Lymphocytes % (auto) 17.8 %; Mean Corpuscular Hemoglobin 34.4 pg (25-34); Mean Corpuscular Hgb Conc 34.6 g/dL (32-36); Mean Corpuscular Volume 99.3 fL (80-100); Mean Platelet Volume 9.4 fL (7.4-10.4); Monocytes # (auto) 0.53 K/uL (0.11-0.59); Neutrophils # (auto) 4.74 K/uL (1.4-6.5); Neutrophils % (auto) 71.6 %; Platelet Count 256 K/uL (130-400); RDW Coefficient of Variation 14.4 % (11.5-14.5); RDW Standard Deviation 51.7 fL (36.4-46.3); Red Blood Count 4.39 M/uL (4.7-6.1); White Blood Count 6.62 K/uL (4.8-10.8)
[2020-10-03 01:57] LABS: Alanine Aminotransferase 38 U/L (12-78); Albumin Level 4.1 gm/dl (3.4-5.0); Aspartate Aminotransferase 24 U/L (15-37); Blood Urea Nitrogen 35 mg/dl (7-18); Carbon Dioxide 25 mmol/L (21-32); Chloride 109 mmol/L (98-107); Creatinine Clr Calc Pharmacy 46.1 ml/min; Est GFR (African American) 52.3 ml/min; Est GFR (Non-African American) 45.1 ml/min; Glucose 110 mg/dl (70-99); Potassium 4.7 mmol/L (3.5-5.1); Sodium 137 mmol/L (136-145)
[2020-10-03 02:08] LABS: Albumin Globulin Ratio 1.1 (0.9-2); Alkaline Phosphatase 97 U/L (45-117); Bilirubin,Total 0.4 mg/dl (0.2-1); Globulin 3.9 gm/dl (2.5-4.0); Troponin I < 0.015 ng/ml (0-0.045)
[2020-10-03 02:26] LABS: Appearance Urine Clear (Clear); Bacteria Urine Automated Negative (Negative); Bilirubin Urine Negative (Negative); Blood Urine Negative (Negative); Color Urine Yellow; Glucose Urine UA Negative (Negative); Ketones Urine Negative (Negative); Leukocyte Esterase Urine 1+ (Negative); Nitrite Urine Negative (Negative); Protein Urine Trace (Negative); RBC Urine Automated 0-4 /hpf (0-4); Specific Gravity Urine 1.032 (1.000-1.030); Urobilinogen Urine Negative (Negative)
[2020-10-03 02:59] LABS: NT Pro B Type Natriuretic Pept 1364 pg/ml (0-1800)
[2020-10-03] MEDS ORDERED: SODIUM CHLORIDE 0.9% 1000ML 500 ML IV ONE (03:06)
--- NOTE | 2020-10-03 04:30 | History & Physical Report ---
Date of Service October 03, 2020 Assessment & Plan (1) Permanent atrial fibrillation: (2) Chronic kidney disease: (3) Chronic diastolic heart failure: (4) CAD (coronary artery disease), [place] coronary artery: (5) Hypertension: (6) Hyperlipidemia: History of Present Illness Chief Complaint: fall, confusion Primary Care Provider: Phil Hicks MD 80 yo M PMHx AFib, HTN, HLD, CKD, CAD, anxiety, mild dementia, diastolic CHF presented to ER due to concern for fall and confusion this evening. This evening patient was in his usual state of health and went to bed around 7pm and closed his bedroom obi. at around 1130 patient's son noted that his room light was on, and on checking him noted that he was on the floor and did not recall how he got there. No complaints from patient of pain anywhere on his body. On arrival to ER patient had labwork noteable only for elevated creatinine (at baseline). CXR without acute pathology. Head CT performed given fall, which showed _ on STATRAD report. Hospitalist service was consulted for admission for possible acute CVA and fall. Of note, patient was recently on two weeks of doxycycline for a targetoid rash after a tick bite thought to be Lyme. On review of labwork, patient had 3 IgG bands positive and 1 IgM band equivocal. Allergies Allergy/AdvReac Type Severity Reaction Status Date / Time No Known Allergies Allergy Verified 10/03/20 01:40 Home Medications Medication Instructions Recorded Confirmed Type citalopram [Celexa] 20 mg PO HS 12/30/17 10/03/20 History omeprazole magnesium [Prilosec OTC] 20 mg PO QAM 12/30/17 10/03/20 History apixaban 5 mg tablet 5 mg PO BID #60 tab 12/11/18 10/03/20 Rx diltiazem HCl 120 mg PO QAM #30 cap 03/18/19 10/03/20 Rx nitroglycerin 0.4 mg SUBLINGUAL Q5M PRN #1 btl 03/18/19 10/03/20 Rx aspirin 81 mg tablet,delayed 81 mg PO DAILY 05/21/19 10/03/20 History release rosuvastatin 40 mg tablet 40 mg PO DAILY 09/17/19 10/03/20 History cyanocobalamin (vitamin B-12) 100 100 mcg PO DAILY 10/15/19 10/03/20 History mcg tablet zolpidem 5 mg tablet 5 mg PO DAILY tab 04/09/20 10/03/20 History isosorbide mononitrate 30 mg 30 mg PO QAM #30 tab 06/22/20 10/03/20 Rx tablet,extended release 24 hr furosemide 40 mg tablet 20 mg PO QAM #90 tab 09/16/20 10/03/20 Rx metoprolol tartrate 50 mg tablet 50 mg PO BID #180 tab 09/16/20 10/03/20 Rx acetaminophen [Tylenol] 650 mg PO DIRECTED PRN 10/03/20 10/03/20 History Past Med/Surg History Medical History (Updated 10/08/20 @ 00:03 by Pao Huerta) Acute alteration in mental status Aortic insufficiency BPH with obstruction/lower urinary tract symptoms CAD (coronary artery disease), [place] coronary artery Chronic diastolic heart failure Chronic kidney disease Confusion Fall History of anesthesia reaction CONVULSIONS POST OP QUICK COMING AWAKE FROM CABG SURG 20 YRS AGO. DENIES SEIZURES, SAYS HE 'WOKE UP TOO QUICKLY' AND THEY PUT HIM BACK UNDER Hyperlipidemia Hypertension Mitral regurgitation Permanent atrial fibrillation Surgical History H/O colonoscopy S/P CABG x 2 S/P TURP Family History Brother Family history of esophageal cancer Mother , age 73 of a stroke and [place] Myocardial infarction Stroke Father , age 31 in a gas explosion No problems noted. 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 [employer] Feels Safe at Home: Yes Assistive Devices: None Review of Systems Review of Systems: All systems reviewed & are unremarkable except as noted in HPI & below Constitutional: no fever, no chills and no malaise Respiratory: no cough and no dyspnea Cardiovascular: no chest pain, no palpitations and no edema Gastrointestinal: no abdominal pain, no constipation and no diarrhea/loose stools Physical Exam Constitutional: WD/WN, vitals as above Eyes: PERRL, conjunctivae normal, anicteric sclerae ENMT: external ear and nose normal, oropharynx normal Neck: normal visual inspection Respiratory: normal respiratory effort, lungs clear to auscultation Cardiovascular: RRR, no murmur, no edema Gastrointestinal (Abdomen): normal bowel sounds, soft, nontender, no hepatosplenomegaly Musculoskeletal: no cyanosis or clubbing, extremities motor strength 5/5 Skin: no rashes, warm and dry Neurologic: AAOx3, some slurring of words (son reports that vocal tone is at baseline); does trail off and fall asleep on occasion. Bilateral UE, LE, and face without sensory or motor deficits. No pronator drift or tremor. Psychiatric: A+Ox3, euthymic affect Results & Data Results & Data ([facility]) Vital Signs (Past 12 Hours) Vital Signs Temp Pulse Resp BP Pulse Ox 10/03/20 03:30 93 H 16 159/94 H 99 10/03/20 03:12 89 170/78 H 98 10/03/20 02:31 88 19 116/63 99 10/03/20 02:14 87 24 141/98 H 10/03/20 02:00 84 20 141/98 H 10/03/20 01:30 86 22 91 10/03/20 01:00 90 26 H 91 10/03/20 00:56 90 32 H 171/87 H 92 10/03/20 00:54 24 91 10/03/20 00:34 36.8 C 86 20 172/80 H 94 Supervising Physician Co-Signing Physician Notes Attending addendum: I have physically seen this patient, have supervised the medical residents activities, and agree with the H&P unless as otherwise noted. 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 Hold Eliquis overnight Continue metoprolol tartrate, isosorbide mononitrate and diltiazem Permissive hypertension Remaining orders and notations as noted Resident Activity Tracking Resident Involvement: Resident Care Provided Care Provided: Adult Hospital Medicine (1) Hyperlipidemia Hyperlipidemia type: unspecified Qualified Code(s): E78.5 - Hyperlipidemia, unspecified (2) CAD (coronary artery disease), [place] coronary artery Associated angina: without angina [place] vs. transplanted heart: [place] heart Qualified Code(s): I25.10 - Atherosclerotic heart disease of [place] coronary artery without angina pectoris (3) Hypertension Hypertension type: unspecified Qualified Code(s): I10 - Essential (primary) hypertension
[2020-10-03] MEDS ORDERED: MELATONIN 3 MG TAB PO PRN (06:09)
[2020-10-03] MEDS ORDERED: ACETAMINOPHEN 325 MG TAB PO PRN (06:09)
[2020-10-03] MEDS ORDERED: PHARMACIST DISCHARGE MED REC CONSULT PRN (06:09)
--- NOTE | 2020-10-03 07:28 | CT Scan Report ---
HEAD CT NONCONTRAST CT DOSE: 1437.38 mGy.cm HISTORY: Altered mental status. Fall. TECHNIQUE: Multiaxial CT images of the head were performed without the use of intravenous contrast. A utomated exposure control was utilized for this study. A dose lowering technique was utilized adheri ng to the principles of ALARA. Comparison: Head CT 03/14/2019. Findings: The paranasal sinuses and mastoid air cells are clear. No change in the old lacunar infarct s within the left inferior cerebellar hemisphere. The calvarium and skull base are intact. Mild motio n artifact. There is no mass, hematoma, midline shift, acute infarct. Impression: No significant change compared to the prior study. No acute intracranial abnormality. ACT 112: Negative or not required by law. Electronically signed by: Toi Maria M.D. 10/03/2020 7:27 AM
--- NOTE | 2020-10-03 07:36 | XRay Report ---
XR chest 1V portable HISTORY: weakness COMPARISON: Chest 03/16/2019. FINDINGS: There are low lung volumes. No pneumothorax. The heart remains mildly enlarged. There are p oststernotomy changes. Progressive perihilar interstitial and vascular thickening consistent with mil d pulmonary edema. There are trace bilateral pleural effusions. IMPRESSION: Mild interstitial pulmonary edema and trace bilateral pleural effusions. ACT 112: Negative or not required by law. Electronically signed by: Toi Maria M.D. 10/03/2020 7:35 AM
[2020-10-03] MEDS ORDERED: CLOPIDOGREL BISULFATE 75 MG TAB PO SCH (09:00)
[2020-10-03] MEDS: PANTOprazole 40 MG TAB PO SCH (10:01)
[2020-10-03] MEDS: dilTIAZem HCL 120 MG CAPCR PO SCH (10:02)
[2020-10-03] MEDS: FUROSEMIDE 20 MG TAB PO SCH (10:02)
[2020-10-03] MEDS: METOPROLOL TARTRATE 50 MG TAB PO SCH ×2 (10:02→20:37)
[2020-10-03] MEDS: ROSUVASTATIN CALCIUM 20 MG TAB PO SCH (10:03)
[2020-10-03] MEDS: ISOSORBIDE MONO EXTENDED REL 30 MG TABCR PO SCH (10:03)
--- NOTE | 2020-10-03 10:56 | Neurology Consultation ---
Date of Consultation October 03, 2020 Assessment & Plan (1) Fall: (2) Hypertension: (3) Permanent atrial fibrillation: the patient was found on the floor late October 02 by his son and brought to the ER. He had some slight slurred speech and some confusion, but seems to be back to baseline this morning. There are no focal neurologic deficits, meningeal signs, or encephalopathy. He carries a diagnosis of mild dementia but I do not see much in the way of dementia with my questioning of him this morning. He does have cardiac issues including permanent atrial fibrillation but he is on aspirin and Eliquis. I am not certain this patient had a stroke or even a TIA. The patient has a history of peripheral lyme disease treated with 2 weeks doxycycline, healing his bull's-eye rash that started 7 weeks ago. Recommendations: 1. MRI of the brain with/without contrast 2. Echocardiogram. 3. continue on 81 milligram aspirin and Eliquis for now. I may change the aspirin to clopidogrel depending on his MRI and clinical course. 4. Control blood pressure as you are doing, aiming for a mean arterial pressure of 95-100. overall, I spent a total of 60 minutes with this case including review of records, review of CT films, direct evaluation the patient at bedside, and discussion of the case with the patient at bedside and Mil BALDWIN, including differential diagnosis and treatment options. History of Present Illness Reason for Consultation: Patient is a 80-year-old, who I was asked to see at the request of Dr. Moralez, for neurologic consultation regarding stroke-like activity. Requesting Physician: Dr. Moralez Attending Physician: Veena De Anda MD History of Present Illness this patient has a history of multiple medical problems including coronary artery disease, status post 2 vessel coronary artery bypass graft in the past, s ome congestive heart failure and permanent atrial fibrillation. He has a history of hypertension and dyslipidemia but no diabetes or history of prior stroke. There is a diagnosis of mild dementia. 7 weeks ago patient had a tick bite and had a bull's eye like rash on his inside right lower leg. He was given 2 weeks of doxycycline and the rash completely cleared. He does not have any joint pain currently but was left with a general sense of weakness and fatigue Cristopher with easy fatigability. This has slowly been improving over time. He has a little bit of lightheadedness with standing and he gets short of breath with exertion but this is improving as well. He does not have any recall of the events of yesterday but remembers watching baseball on TV last evening. He was found on the floor with some slurred speech and mild confusion and brought to the emergency room. He arrived to the emergency room on October 03 at 00:27 with a temperature of 36.8, pulse 86 and regular, respiratory rate 20, blood pressure 172/80, and O2 saturation 94 percent. CBC was unremarkable and Chem profile had a mildly elevated BUN and creatinine. Glucose was 110 and TSH in urinalysis were unremarkable. Chest x-ray was unremarkable. CT scan of the head showed no acute changes and this is confirmed by our radiologist over-read. I reviewed this CT. This morning the patient feels back to baseline with no pain or headache, dizziness, vision problems, swallowing issues, weakness, numbness, or balance issues. He does not feel confused. Allergies Allergy/AdvReac Type Severity Reaction Status Date / Time No Known Allergies Allergy Verified 10/03/20 01:40 Home Medications Medication Instructions Recorded Confirmed Type citalopram [Celexa] 20 mg PO HS 12/30/17 10/03/20 History omeprazole magnesium [Prilosec OTC] 20 mg PO QAM 12/30/17 10/03/20 History apixaban 5 mg tablet 5 mg PO BID #60 tab 12/11/18 10/03/20 Rx diltiazem HCl 120 mg PO QAM #30 cap 03/18/19 10/03/20 Rx nitroglycerin 0.4 mg SUBLINGUAL Q5M PRN #1 btl 03/18/19 10/03/20 Rx aspirin 81 mg tablet,delayed 81 mg PO DAILY 05/21/19 10/03/20 History release rosuvastatin 40 mg tablet 40 mg PO DAILY 09/17/19 10/03/20 History cyanocobalamin (vitamin B-12) 100 100 mcg PO DAILY 10/15/19 10/03/20 History mcg tablet zolpidem 5 mg tablet 5 mg PO DAILY tab 04/09/20 10/03/20 History isosorbide mononitrate 30 mg 30 mg PO QAM #30 tab 06/22/20 10/03/20 Rx tablet,extended release 24 hr furosemide 40 mg tablet 20 mg PO QAM #90 tab 09/16/20 10/03/20 Rx metoprolol tartrate 50 mg tablet 50 mg PO BID #180 tab 09/16/20 10/03/20 Rx acetaminophen [Tylenol] 650 mg PO DIRECTED PRN 10/03/20 10/03/20 History Patient History Medical History Aortic insufficiency BPH with obstruction/lower urinary tract symptoms CAD (coronary artery disease), [place] coronary artery Chronic diastolic heart failure Chronic kidney disease History of anesthesia reaction CONVULSIONS POST OP QUICK COMING AWAKE FROM CABG SURG 20 YRS AGO. DENIES SEIZURES, SAYS HE 'WOKE UP TOO QUICKLY' AND THEY PUT HIM BACK UNDER Hyperlipidemia Hypertension Mitral regurgitation Permanent atrial fibrillation Surgical History H/O colonoscopy S/P CABG x 2 S/P TURP Family History Brother Family history of esophageal cancer Mother , age 73 of a stroke and [place] Myocardial infarction Stroke Father , age 31 in a gas explosion No problems noted. 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 [employer] Feels Safe at Home: Yes Assistive Devices: None Review of Systems Constitutional: + fatigue and + weakness; no fever Eyes: no diplopia, no eye pain and no worsening vision Ear, Nose, Mouth, Throat: no ear pain, no tinnitus, no hearing loss, no dizziness, no hoarseness and no dysphagia Respiratory: no cough and no dyspnea Cardiovascular: no chest pain, no palpitations and no lightheadedness Gastrointestinal: no abdominal pain, no nausea and no vomiting Genitourinary: no dysuria and no urinary incontinence Musculoskeletal: no back pain, no neck pain, no radicular pain, no joint pain and no myalgia Integumentary: no rash and no lesions Neurologic: no gait abnormality, no localized weakness, no generalized weakness, no tingling, no numbness, no tremor(s), no abnormal movements, no headache(s), no abnormal speech, no confusion and no memory loss Psychiatric: no depression, no irritability, no anxiety, no difficulty concentrating, no confusion and no hallucinations Endocrine: no fatigue and no flushing Hematologic / Lymphatic: no easy bleeding and no easy bruising Allergy / Immunological: no urticaria and no problem reported Exam (Neuro) Physical Exam: The patient is right-handed. The patient is awake, alert, and attentive. Speech is normal without any aphasia or dysarthria. he can name objects, repeat phrases, and has normal spontaneous speech. Mentation and thought processes are intact, with orientation to person, place and time, and normal fund of knowledge. Attention and concentration are normal. Mood and affect are normal and appropriate. General appearance and grooming are normal. Short and long-term memory are intact to conversation. The discs are sharp with positive venous pulsations bilaterally. There are no exudates, hemorrhages, or blood vessel changes seen. Pupils are 4 mm bilaterally and reactive to light. Extraocular eye muscles are intact without nystagmus. Visual acuity and visual vance seem normal grossly to confrontation. There are no deficits to sensation in the face in all 3 distributions of the fifth cranial nerve bilaterally. Corneal reflexes are positive bilaterally. Facial strength and symmetry was normal bilaterally. Hearing seems normal to whisper and finger rub bilaterally. Palate moves well without asymmetry. There is normal sternocleidomastoid and trapezius (shoulder shrug) strength bilaterally. Tongue is midline with good strength bilaterally. Neck has a full range of motion without discomfort. There are no cervical bruits bilaterally. There are no cranial or ocular bruits. Heart is without murmur. There is a regular rhythm and rate. Cervical, thoracic, and lumbar spine are nontender to palpation. Gait is narrow based, with good arm swing, turns, and stance. Balance is normal eyes open or closed. With outstretched arms there is no drift. There are no resting, postural, or action tremors. There is no ataxia with finger to nose testing. There is good facility in the hands. No other abnormal involuntary movements are noted. Motor strength is 5/5 diffusely in the arms bilaterally including deltoids, biceps, triceps, brachioradialis, wrist flexors and extensors, lead electrician, and intrinsic hand muscles. Motor strength is 5/5 diffusely in the legs bilaterally including hip flexors, quadriceps, hamstrings, gastrocnemius, tibialis anterior, tibialis posterior, and Peroneii muscles. Toe extensors are normal and there is good bulk in the extensor digitorum brevis muscles bilaterally. The limbs have good tone without rigidity or spasticity. There is no atrophy noted in the muscles. Muscle bulk is normal, there is no tenderness to palpation, no myotonia to percussion, and no fasciculations seen. Sensory examination is intact to touch and pin throughout all 4 limbs diffusely. Reflexes are 1/4 in the biceps, triceps, brachioradialis, quadriceps, and Achilles tendons bilaterally. There is no clonus bilaterally. Toes are downgoing with plantar stimulation bilaterally. Peripheral pulses are present and of normal quality distally in all 4 limbs. There is no peripheral edema noted in the limbs. Results & Data ([facility]) Vital Signs (Past 12 Hours) Vital Signs Temp Pulse Pulse Resp BP BP Pulse Ox 10/03/20 10:00 101 H 167/81 H 10/03/20 07:48 35.4 C L 91 H 20 162/83 H 90 10/03/20 07:00 92 H 10/03/20 06:14 36.4 C L 85 16 177/94 H 94 10/03/20 05:31 85 20 158/97 H 98 10/03/20 05:00 91 H 154/83 H 96 10/03/20 04:30 85 166/86 H 97 10/03/20 03:30 93 H 16 159/94 H 99 10/03/20 03:12 89 170/78 H 98 10/03/20 02:31 88 19 116/63 99 10/03/20 02:14 87 24 141/98 H 10/03/20 02:00 84 20 141/98 H 10/03/20 01:30 86 22 91 10/03/20 01:00 90 26 H 91 10/03/20 00:56 90 32 H 171/87 H 92 10/03/20 00:54 24 91 10/03/20 00:34 36.8 C 86 20 172/80 H 94 PG Care Time/CCT Total # of Minutes Spent Total Time Spent with Patient: Total time spent is greater than 50% in coordination of care (as documented) at patient's floor/unit and/or counseling patient: Coding Level of Care Code 17301 Initial Inpt Care Lvl 3 Diagnoses Fall W19.XXXA Encounter type: initial encounter Hypertension I10 Hypertension type: unspecified Permanent atrial fibrillation I48.21 Time Spent (min) 60 (1) Fall Encounter type: initial encounter Qualified Code(s): W19.XXXA - Unspecified fall, initial encounter (2) Hypertension Hypertension type: unspecified Qualified Code(s): I10 - Essential (primary) hypertension
[2020-10-03] MEDS ORDERED: GADOBUTROL 10ML VIAL IV ONE (12:23)
--- NOTE | 2020-10-03 13:04 | Magnetic Resonance Report ---
Brain MRI WITH AND WITHOUT CONTRAST HISTORY: Slurred speech. eval for acute stroke TECHNIQUE: Multiplanar multisequence MRI of the brain was performed both before and after the intrave nous administration of contrast. COMPARISON STUDY: Head CT 10/03/2020. FINDINGS: There is no mass, hematoma, midline shift, or acute infarct. The paranasal sinuses are tera r. The mastoid air cells are clear. The ventricles and sulci demonstrate mild age-related involutiona l changes. Scattered foci of T2 hyperintensity seen within the periventricular and subcortical white matter are nonspecific but suggestive of mild microvascular ischemic changes. The major vascular flow voids at the skull base are well-maintained. There is mild motion artifact. Old lacunar infarct seen within the left cerebellar hemisphere are again noted. No abnormal enhancement. IMPRESSION: No acute intracranial abnormality. Scattered foci of T2 hyperintensity seen within the periventricula r and subcortical white matter are nonspecific but favor microvascular ischemic change. ACT 112: Negative or not required by law. Electronically signed by: Toi Maria M.D. 10/03/2020 1:02 PM
--- NOTE | 2020-10-03 14:09 | Hospitalist Progress Note ---
Date of Service October 03, 2020 Assessment & Plan (1) Fall: Patient found at home in the bedroom by his son last evening. He does not recall falling or how he ended up on the floor. (2) Confusion: Has a hx of delirium in the past as well as dementia. Patient is alert and oriented x 3 this morning. Able to answer all questions this morning without any signs of confusion. No neurologic deficits on exam. Patient seen by neurology this AM. ECHO and MRI recommended. ? TIA ? related to recent peripheral Lyme disease treated with 2 weeks of doxycycline for bull's-eye rash No acute intracranially abnormality seen on head CT or MRI. Suspected microva scular ischemic changes noted. ECHO pending. Resume Eliquis and ASA per neurology. Speech therapy eval performed today. No significant difficulty noted. Recommend east to chew diet. PT eval notes the patient is at functional baseline. OT eval notes the able to function independently. (3) Chronic diastolic heart failure: Follows with [facility] heart failure clinic. Last seen on 09/16/20. Weight was noted to be 91.7kg at that time. Now up to 94.3kg today. Chest XR showing mild interstitial pulmonary edema and trace bilateral pleural effusions. No SOB and lungs clear to auscultation. No significant edema on exam. ECHO pending. Strict I&Os and daily weights. Continue Lasix 20mg qam. Monitor for signs of worsening heart failure. (4) Permanent atrial fibrillation: Resume Eliquis. (5) CAD (coronary artery disease), [place] coronary artery: Continue statin, beta kenji, isosorbide mononitrate, diltiazem. ECHO pending. (6) Hypertension: BP elevated since admission. Now improved to 122/63 this afternoon. Continue beta kenji, isosorbide mononitrate, and diltiazem. Goal mean arterial pressure is 95-100. Continue to monitor. (7) Hyperlipidemia: Continue statin. (8) Chronic kidney disease: Chronic. Baseline Cr is ~1.8. 1.28 on admission. Bumped to 1.46 this morning. Will avoid IVF given recent weight gain and hx of heart failure. Continue to monitor. Repeat BMP in AM. (9) DVT prophylaxis: Resume Eliquis. Disposition: home pending ECHO results. Admission and Anticipated Discharge Date Admission Date: October 03, 2020 Supervising Physician Co-Signing Physician Notes PA Supervision Note: I did not personally see or examine the patient today, but I verified all concepcion points of NICOLASA Falcon's assessment and plan with the following exceptions/additions: None Subjective 80 yo male admitted for ? CVA s/p fall. Patient reports he feels well this morning; has no complaints. He would like to know when he can go home. Review of Systems Constitutional: no fever and no chills Eyes: no worsening vision Ear, Nose, Mouth, Throat: no dizziness Respiratory: no dyspnea Cardiovascular: no chest pain Gastrointestinal: no abdominal pain, no nausea and no vomiting Psychiatric: no confusion Physical Exam Constitutional: + obese; no acute distress ENMT: Ears: no hearing impairment Neck: normal visual inspection Respiratory: normal respiratory effort, lungs clear to auscultation Cardiovascular: RRR, no murmur, no edema Gastrointestinal (Abdomen): Inspection/Auscultation: normal bowel sounds Percussion/Palpation: abdomen soft; abdomen nontender Neurologic: moves all extremities and awake; not confused Speech / Cognition: normal speech Cranial Nerves: normal facial strength, tongue midline and normal hearing Psychiatric: A+Ox3, euthymic affect Results & Data Results & Data ([facility]) Vital Signs (Past 12 Hours) Vital Signs Temp Pulse Pulse Resp BP BP Pulse Ox 10/03/20 12:32 36.7 C 73 20 122/63 91 10/03/20 10:00 101 H 167/81 H 10/03/20 07:48 35.4 C L 91 H 20 162/83 H 90 10/03/20 07:00 92 H 10/03/20 06:14 36.4 C L 85 16 177/94 H 94 10/03/20 05:31 85 20 158/97 H 98 10/03/20 05:00 91 H 154/83 H 96 10/03/20 04:30 85 166/86 H 97 10/03/20 03:30 93 H 16 159/94 H 99 10/03/20 03:12 89 170/78 H 98 10/03/20 02:31 88 19 116/63 99 10/03/20 02:14 87 24 141/98 H 10/03/20 02:00 84 20 141/98 H PG Care Time/CCT Total # of Minutes Spent Total Time Spent with Patient: Total time spent is greater than 50% in coordination of care (as documented) at patient's floor/unit and/or counseling patient: Coding Level of Care Code None Medical Decision Making Moderate Complexity Diagnoses Fall W19.XXXA Encounter type: initial encounter Confusion R41.0 Chronic diastolic heart failure I50.32 Permanent atrial fibrillation I48.21 CAD (coronary artery disease), [place] coronary artery I25.10 Associated angina: without angina [place] vs. transplanted heart: [place] heart Hypertension I10 Hypertension type: unspecified Hyperlipidemia E78.5 Hyperlipidemia type: unspecified Chronic kidney disease N18.9 DVT prophylaxis Z29.9 (1) Hyperlipidemia Hyperlipidemia type: unspecified Qualified Code(s): E78.5 - Hyperlipidemia, unspecified (2) CAD (coronary artery disease), [place] coronary artery Associated angina: without angina [place] vs. transplanted heart: [place] heart Qualified Code(s): I25.10 - Atherosclerotic heart disease of [place] coronary artery without angina pectoris (3) Hypertension Hypertension type: unspecified Qualified Code(s): I10 - Essential (primary) hypertension (4) Fall Encounter type: initial encounter Qualified Code(s): W19.XXXA - Unspecified fall, initial encounter
[2020-10-03] MEDS: APIXABAN 5 MG TABLET PO SCH (20:37)
[2020-10-03] MEDS ORDERED: hydrOXYzine HCl 25 MG TAB PO STA (20:45)
[2020-10-03] MEDS ORDERED: CITALOPRAM 20 MG TAB PO SCH (21:00)
--- NOTE | 2020-10-04 06:20 | Electrocardiogram Report ---
Test Reason : Blood Pressure : / mmHG Vent. Rate : 091 BPM Atrial Rate : 234 BPM P-R Int : 000 ms QRS Dur : 092 ms QT Int : 408 ms P-R-T Axes : 000 -26 008 degrees QTc Int : 502 ms Atrial flutter with variable A-V block Inferior infarct , age undetermined Prolonged QT Abnormal ECG When compared with ECG of 14-MAR-2019 14:27, Atrial flutter has replaced Atrial fibrillation Confirmed by Meet Trinidad ([id number]) on 10/04/2020 6:20:01 AM Referred By: REFERRED SELF Confirmed By:Meet Trinidad
[2020-10-04 06:27] LABS: Basophils # (auto) 0.03 K/uL (0-0.2); Basophils % (auto) 0.5 %; Eosinophils # (auto) 0.23 K/uL (0-0.5); Eosinophils % (auto) 3.5 %; Hematocrit (blood only) 44.3 % (42-52); Hemoglobin 15.4 g/dL (14.0-18.0); Immature Granulocytes # (auto) 0.03 K/uL (0.00-0.02); Immature Granulocytes % (auto) 0.5 %; Lymphocytes % (auto) 31.9 %; Mean Corpuscular Hemoglobin 34.4 pg (25-34); Mean Corpuscular Hgb Conc 34.8 g/dL (32-36); Mean Corpuscular Volume 98.9 fL (80-100); Mean Platelet Volume 9.3 fL (7.4-10.4); Monocytes # (auto) 0.66 K/uL (0.11-0.59); Neutrophils # (auto) 3.54 K/uL (1.4-6.5); Neutrophils % (auto) 53.6 %; Platelet Count 243 K/uL (130-400); RDW Coefficient of Variation 14.4 % (11.5-14.5); RDW Standard Deviation 51.8 fL (36.4-46.3); Red Blood Count 4.48 M/uL (4.7-6.1); White Blood Count 6.59 K/uL (4.8-10.8)
[2020-10-04 07:04] LABS: BUN Creatinine Ratio 20.9 (10-20); Creatinine Clr Calc Pharmacy 52.5 ml/min; Est GFR (African American) 61.9 ml/min; Est GFR (Non-African American) 53.4 ml/min
[2020-10-04 07:25] LABS: Estimated Average Glucose 111 mg/dl; Hemoglobin A1C 5.5 % (4.5-5.6)
[2020-10-04] MEDS: METOPROLOL TARTRATE 50 MG TAB PO SCH (08:02)
[2020-10-04] MEDS: ISOSORBIDE MONO EXTENDED REL 30 MG TABCR PO SCH (08:03)
[2020-10-04] MEDS: PANTOprazole 40 MG TAB PO SCH (08:03)
[2020-10-04] MEDS: FUROSEMIDE 20 MG TAB PO SCH (08:03)
[2020-10-04] MEDS: dilTIAZem HCL 120 MG CAPCR PO SCH (08:03)
[2020-10-04] MEDS: ROSUVASTATIN CALCIUM 20 MG TAB PO SCH (08:03)
[2020-10-04] MEDS: APIXABAN 5 MG TABLET PO SCH (08:04)
--- NOTE | 2020-10-04 08:16 | Neurology Progress Note ---
Date of Service October 04, 2020 Assessment & Plan (1) Fall: (2) Hypertension: (3) Permanent atrial fibrillation: The patient was found on the floor late October 02 by his son and brought to the ER. He had some slight slurred speech and some confusion, but seemed to be back to baseline by the morning of the . There were no focal neurologic deficits, meningeal signs, or encephalopathy. This morning the patient continues to be very well with no symptoms or issues overnight. He has no complaints in his neuro examination is nonfocal. MRI did not show an acute stroke. He does have old small vessel ischemic changes, however. He carries a diagnosis of mild dementia but I do not see much in the way of dementia with my questioning of him since he arrived. He does have cardiac issues including permanent atrial fibrillation but he is on aspirin and Eliquis. The patient has a history of peripheral lyme disease treated with 2 weeks doxycycline, healing his bull's-eye rash that started 7 weeks ago. MRI did not show any evidence to suggest central nervous system Lyme disease. He has no meningeal signs also. In summary, although I cannot exclude a TIA, I am not sure this patient had a new, discrete neurologic event. He claims to be very weak and tired after having had the Lyme disease. Recommendations: 1. Awaiting Echocardiogram results. 2. I think it is reasonable to continue on 81 milligram aspirin and Eliquis for now. 3. Control blood pressure as you are doing, aiming for a mean arterial pressure of 95-100. 4. I could follow up as an outpatient, if desired. Overall, I spent a total of 35 minutes with this case including review of records, review of MRI films, direct evaluation the patient at bedside, and discussion of the case with the patient at bedside and Dr. Yuen, including differential diagnosis and treatment options. Admission and Anticipated Discharge Date Admission Date: October 03, 2020 Subjective patient feels "great and has no headache, pain, weakness, numbness, or dizziness. Apparently he had an echocardiogram but the results are yet. MRI of the brain revealed no acute changes or stroke. There is generalized atrophy and ischemic changes in the white matter, and an left cerebellar hemispheric lacunar infarct. There was no enhancement. CBC and Chem profile were unremarkable. Hemoglobin A1c was 5.5 and triglycerides 326. Total cholesterol 158. Blood pressure 152/70. Results & Data ([facility]) Vital Signs (Past 12 Hours) Vital Signs Temp Pulse Pulse Resp BP Pulse Ox 10/04/20 07:50 36.9 C 79 18 152/79 H 94 10/04/20 07:04 59 L 10/04/20 03:30 36.6 C 57 L 20 125/64 94 10/04/20 00:00 73 10/03/20 23:00 36.7 C 68 20 134/69 94 Exam (Neuro) Physical Exam: He is awake and alert. Speech is without dysarthria or aphasia. Thought processes are intact. Extraocular eye muscles are intact without nystagmus. There is no facial droop. Coordination is normal in the arms and strength is symmetrical in the limbs. PG Care Time/CCT Total # of Minutes Spent Total Time Spent with Patient: Total time spent is greater than 50% in coordination of care (as documented) at patient's floor/unit and/or counseling patient: Coding Level of Care Code 59109 Subseq Hosp Care Lvl 3 Diagnoses Fall W19.XXXA Encounter type: initial encounter Hypertension I10 Hypertension type: unspecified Permanent atrial fibrillation I48.21 Time Spent (min) 35 (1) Fall Encounter type: initial encounter Qualified Code(s): W19.XXXA - Unspecified fall, initial encounter (2) Hypertension Hypertension type: unspecified Qualified Code(s): I10 - Essential (primary) hypertension
[2020-10-04] MEDS ORDERED: ASPIRIN 81 MG ECTAB PO SCH (09:00)
--- NOTE | 2020-10-04 11:47 | Communication Note ---
Date of Service: October 04, 2020 By CMS guidelines, a determination that the admission or continued stay is not medically necessary has been made by a member of the UR committee and a physic cece for this hospital stay, therefore a Code 44 will be completed and the Inpatient admission will be changed to outpatient.
[2020-10-04] MEDS ORDERED: STROKE PATIENT DISCHARGE STA (11:50)
--- NOTE | 2020-10-04 11:51 | Discharge Summary ---
Date of Service October 04, 2020 Admission HPI Per Admitting Provider 80 yo M PMHx AFib, HTN, HLD, CKD, CAD, anxiety, mild dementia, diastolic CHF presented to ER due to concern for fall and confusion this evening. This evening patient was in his usual state of health and went to bed around 7pm and closed his bedroom obi. at around 1130 patient's son noted that his room light was on, and on checking him noted that he was on the floor and did not recall how he got there. No complaints from patient of pain anywhere on his body. On arrival to ER patient had labwork noteable only for elevated creatinine (at baseline). CXR without acute pathology. Head CT performed given fall, which showed _ on [facility] report. Hospitalist service was consulted for admission for possible acute CVA and fall. Of note, patient was recently on two weeks of doxycycline for a targetoid rash after a tick bite thought to be Lyme. On review of labwork, patient had 3 IgG bands positive and 1 IgM band equivocal. Principal Diagnosis Weakness and fall, likely from recent Lyme disease Discharge Exam Constitutional WD/WN, vitals as above Neck trachea midline, no thyromegaly Respiratory normal respiratory effort, lungs clear to auscultation Cardiovascular RRR, no murmur, no edema Gastrointestinal (Abdomen) normal bowel sounds, soft, nontender, no hepatosplenomegaly Musculoskeletal no cyanosis or clubbing, extremities motor strength 5/5 Skin no rashes, warm and dry Neurologic patellar DTR's 2+ bilat, sensation intact and PERRL, EOMI, accommodation nl, no face palsy, no dysarthria Psychiatric A+Ox3, euthymic affect Discharge Data Allergies Allergy/AdvReac Type Severity Reaction Status Date / Time No Known Allergies Allergy Verified 10/03/20 01:40 Consultations 10/03/20 03:35 ED Decision to Admit Stat 10/03/20 06:09 Consult Neurology Routine Ordered Studies 10/03/20 00:54 CT head/brain wo con Urgent 10/03/20 03:09 MR brain wo/w con Stat Hospital Course (1) Fall: Patient found at home in the bedroom by his son cannot recall how he came to be on the floor no further issues while here, he is oriented x 3 and walking independently with therapy syncope work up negative for any etiology of fall admits that he has been weaker since being treated for Lyme disease MRI brain negative for stroke, does show microvascular changes, d/w Dr. Colón, he can follow up with him in the clinic (2) Chronic kidney disease: Chronic. Baseline Cr is ~1.8. 1.28 on admission. Bumped to 1.46 the next day electrolytes stable, examines euvolemic (3) Chronic diastolic heart failure: [place] [facility] [place]. continue Lasix 20mg PO daily, good response, cr stable, electrolytes stable echo with preserved EF but both right and left atrial dilation, elevated pulmonary pressures (4) CAD (coronary artery disease), samish coronary artery: Continue statin, beta kenji, isosorbide mononitrate, diltiazem. no chest pain, no signs of ACS (5) Hypertension: BP initially elevated, no improved Continue beta kenji, isosorbide mononitrate, and diltiazem. Goal mean arterial pressure is 95-100. Continue to monitor. (6) Hyperlipidemia: Continue statin. Total Time Total Time Spent Total Time Spent (In Minutes): 25 Total Time Includes: Examination of the Patient, Discharge Planning, Medication Reconciliation and Communication With Other Providers Discharge Plan Discharge Items Patient Disposition: Home - Self-Care Reason For Visit: ? CVA, CONFUSION, FALL Discharge Diagnosis: Weakness and fall related to recent Lyme disease Condition on Discharge: Good Goals: continue to improve strength stay well nourished and well hydrated Activity: Resume your previous activity Weightbearing: Full weightbearing Non-emergency contact: Primary Care Provider Call non-emergency contact if: you have any medication questions and your symptoms worsen Follow-up/Referrals: Phil Hicks MD [Primary Care Provider] - (one week. Dr Hicks's office is closed today, October 04. Please call the office on Sunday, October 05 and schedule a follow up appointment for around one week from discharge. The office number is [phone].) Diet: Heart Healthy Addtl Attending Provider Instructions: Medications: no changes In summary, extensive work up with no obvious cause for your weakness and fall Most likely cause is lingering weakness and instability from Lyme disease that was adequately treated You did very well with physical and occupational therapy, cleared for discharge please follow up with Dr. Munira Romeo in one week Pending Studies at Discharge: Yes Studies:: echocardiogram results Stand-Alone Forms: My [facility], Smoking Cessation Medications and DC Order Prescriptions: Continued Eliquis 5 mg tablet 5 mg PO BID Qty: 60 RF: 2 isosorbide mononitrate 30 mg tablet extended release 24 hr 30 mg PO QAM Qty: 30 RF: 5 aspirin 81 mg tablet,delayed release (DR/EC) 81 mg PO DAILY RF: 0 cyanocobalamin (vitamin B-12) 100 mcg tablet 100 mcg PO DAILY RF: 0 rosuvastatin 40 mg tablet 40 mg PO DAILY RF: 0 zolpidem [Ambien] 5 mg tablet 5 mg PO DAILY RF: 0 metoprolol tartrate 50 mg tablet 50 mg PO BID Qty: 180 RF: 3 furosemide 40 mg tablet 20 mg PO QAM Qty: 90 RF: 3 citalopram [Celexa] 20 mg Tablet 20 mg PO HS RF: 0 omeprazole magnesium [Prilosec OTC] 20 mg Tablet,Delayed Release (Dr/Ec) 20 mg PO QAM RF: 0 nitroglycerin 0.4 mg tablet, sublingual 0.4 mg sublingual Q5M PRN (Reason: chest pain) Qty: 1 RF: 0 diltiazem HCl 120 mg Capsule,Extended Release 24hr 120 mg PO QAM Qty: 30 RF: 5 acetaminophen [Tylenol] 325 mg Tablet 650 mg PO DIRECTED PRN (Reason: PAIN/FEVER) RF: 0 Discharge Orders: Discharge Order (Routine); Ordered 10/04/20 Ordered By: Jason Yuen Admission Data Admit Date/Time: 10/03/20 04:27 Attending Provider: Jason Yuen Admit Provider: Nona Elias Primary Care Provider: Phil Hicks Other Providers: Reg Powers Emile Other Interventions: Discharge Summary Assessment (RN) Last Done: 10/04/20 12:07 Coding Level of Care Code 85944 OBS Care - Discharge Diagnoses Fall W19.XXXA Encounter type: initial encounter Chronic kidney disease N18.9 Chronic diastolic heart failure I50.32 CAD (coronary artery disease), samish coronary artery I25.10 Associated angina: without angina [place] vs. transplanted heart: samish heart Hypertension I10 Hypertension type: unspecified Hyperlipidemia E78.5 Hyperlipidemia type: unspecified
--- NOTE | 2020-10-04 13:09 | XCELERA ---
[id number]
--- NOTE | 2020-10-08 10:33 | Billing Data ---
Date of Service October 08, 2020 Coding Level of Care Code 22225 OBS Care - Level 3
== END 2020-10-04 13:15 | disposition home or self-care (01) ==
LOC: ED 00:26 → 2N 04:27 → INTOOBSV 04:27 → SUATTDRO 04:27 → 2N 05:43
DX: I34.0 Nonrheumatic mitral (valve) insufficiency; F03.90 Unspecified dementia, unspecified severity, without behavioral disturbance, psychotic disturbance, mood disturbance, and anxiety; W19.XXXA Unspecified fall, initial encounter; R41.0 Disorientation, unspecified; R53.1 Weakness; N18.9 Chronic kidney disease, unspecified; Z79.899 Other long term (current) drug therapy; I13.0 Hypertensive heart and chronic kidney disease with heart failure and stage 1 through stage 4 chronic kidney disease, or unspecified chronic kidney disease; Z95.1 Presence of aortocoronary bypass graft; Z20.822 Contact with and (suspected) exposure to COVID-19; Z79.01 Long term (current) use of anticoagulants; E78.5 Hyperlipidemia, unspecified; I25.10 Atherosclerotic heart disease of native coronary artery without angina pectoris; Z79.82 Long term (current) use of aspirin; I50.32 Chronic diastolic (congestive) heart failure; I48.21 Permanent atrial fibrillation

== ENCOUNTER 2021-07-06 01:01 | Observation (INO) ==
[2021-07-06 01:39] LABS: Basophils # (auto) 0.02 K/uL (0-0.2); Basophils % (auto) 0.2 %; Eosinophils # (auto) 0.03 K/uL (0-0.5); Eosinophils % (auto) 0.3 %; Hematocrit (blood only) 34.1 % (42-52); Hemoglobin 11.3 g/dL (14.0-18.0); Immature Granulocytes # (auto) 0.02 K/uL (0.00-0.02); Immature Granulocytes % (auto) 0.2 %; Lymphocytes # (auto) 0.33 K/uL (1.2-3.4); Lymphocytes % (auto) 3.5 %; Mean Corpuscular Hemoglobin 35.4 pg (25-34); Mean Corpuscular Hgb Conc 33.1 g/dL (32-36); Mean Corpuscular Volume 106.9 fL (80-100); Mean Platelet Volume 9.2 fL (7.4-10.4); Monocytes # (auto) 0.84 K/uL (0.11-0.59); Monocytes % (auto) 8.9 %; Neutrophils # (auto) 8.17 K/uL (1.4-6.5); Neutrophils % (auto) 86.9 %; Platelet Count 224 K/uL (130-400); RDW Standard Deviation 65.6 fL (36.4-46.3); Red Blood Count 3.19 M/uL (4.7-6.1); White Blood Count 9.41 K/uL (4.8-10.8)
--- NOTE | 2021-07-06 01:42 | Emergency Department Note ---
Impression & Plan Hypoxia, Syncope, Elevated troponin, Acute kidney [facility] Provider Note NAME: SHARON HELMS AGE: 81 SEX: M ARRIVES VIA: Walk-In INFORMANT: [Patient] and his son ED PROVIDER(S): Mara Box DO CHIEF COMPLAINT: Syncope PLAN: Disposition: Admit to the [facility] Condition: Stable MEDICAL DECISION MAKING: This is an 81-year-old male patient who presents to the emergency department after suffering 2 syncopal episodes at home. Patient had been suffering from some nausea and vomiting at home which may have led to dehydration. Patient son called for EMS when he suffered a second syncopal episode tonight and was noted to be hypotensive. The patient was hypoxic with an O2 saturation of 84% upon a rrival here in the emergency department. His creatinine has increased from 1.5- 1.9. He has an elevated troponin by laboratory testing. The patient has an elevated D-dimer but the likelihood of a PE is unlikely given the patient is on Eliquis. I am unsure as to why the patient presented in a hypoxic state. CT scan of the brain and CT scan of the cervical spine were negative for acute traumatic injury. After lengthy discussion with the patient, he was finally agreeable to stay in the hospital for further evaluation of the hypoxia and elevated troponin. Triage Nursing notes reviewed and agree with them. [Additional history obtained from] family member at the bedside [Prior medical records reviewed] Vital Signs: reviewed and remarkable for hypoxia and bradycardia Differential diagnosis: Closed head injury, intracranial hemorrhage, syncope, seizure, dehydration ER treatment provided: IV normal saline solution Diagnostics interpreted by me: ECG: Atrial fibrillation at a rate of 67 with occasional PVCs Cardiac Monitoring: Fibrillation with a bradycardic rate at 57 Laboratory studies: See below Imaging studies: As per stat rad CT HEAD: Comparison to October 03, 2020 CT and MRI. Normal head CT. CT C SPINE: Mild to moderate multilevel degenerative disc disease and facet arthrosis is seen throughout the cervical spine. No acute fracture or traumatic subluxation is seen. There is severe right neural foraminal narrowing at C3-4 and severe left neural foraminal narrowing at C4-5. No significant spinal stenosis is identified. Incidental note is made of mild calcification of the carotid bifurcations bilaterally. Portable chest x-ray: As per my interpretation HPI: 81/M arrives for evaluation of syncope. Patient describes having 2 separate syncopal events today believes that he may be dehydrated. He has had some weakness and episodes of vomiting. He has been taking his vital signs at home and has been having episodes of hypotension and hypoxia. His family member describes that they have been suffering from the GI bug. ROS: See above HPI for pertinent positives & negatives. A total of 10 systems reviewed and were otherwise negative. PAST MEDICAL HISTORY:See Below PAST SURGICAL HISTORY:See Below FAMILY HISTORY:See Below SOCIAL HISTORY:See Below HOME MEDICATIONS:See list ALLERGIES:None VITALS:See Below PHYSICAL EXAMINATION: HEENT: Head - normocephalic with an area of contusion over the left frontal parietal region. Pupils are equal, round, and reactive to light. Extraocular eye muscles are intact, and sclera are anicteric. Nose - moist nasal mucosa without discharge. Mouth - moist buccal mucosa. Oropharynx is nonerythematous and there is no tonsillar exudate or edema noted. Tongue-there is an area of ecchymosis to the tip of the tongue and on the left lateral aspect Neck: Supple; with an area of contusion over the right anterior aspect of the neck. There is no pain to palpation over the posterior cervical spine. Heart: Irregularly irregular rhythm with a controlled rate. There is a normal S1 and S2 with no murmurs, clicks, or gallops appreciated. Lungs: Clear to auscultation bilaterally with no wheezes, rales, or rhonchi. Abdomen: Soft, completely nontender, nondistended, with good bowel sounds. There are no palpable pulsatile masses or hepatosplenomegaly. There is no guarding, rigidity, or rebound noted. Extremities: Abrasions to both knees. There are easily palpable peripheral pulses. Skin: Pale, warm and dry with good turgor and no rashes. Neuro: The patient is awake and alert and easily able to follow commands. He is moving all 4 extremities. ED COURSE: Times/Reassessments: 110: The patient was evaluated in room A10. An order was placed for continuous cardiac monitoring. The patient was in a bradycardic rate that was atrial fibrillation. A twelve-lead EKG was obtained. Laboratory studies were drawn as above. The patient went for CT scan of the brain and cervical spine. Patient was started on IV normal saline solution. I reviewed the results of the laboratory studies with the patient as well as the results of the CT scans. I voiced my concern about the patient's presentation with low oxygen saturations as well as the elevated troponin levels and elevated creatinine. I suggested the patient stay in the hospital. He was finally agreeable and I discussed the case with the [facility] hospitalist. Mara Box DO Past Med/Surg History Medical History (Updated 07/07/21 @ 07:28 by Mara Box DO) Acute alteration in mental status Aortic insufficiency BPH with obstruction/lower urinary tract symptoms CAD (coronary artery disease), [place] coronary artery Chronic diastolic heart failure Chronic kidney disease Confusion Fall History of anesthesia reaction CONVULSIONS POST OP QUICK COMING AWAKE FROM CABG SURG 20 YRS AGO. DENIES SEIZURES, SAYS HE 'WOKE UP TOO QUICKLY' AND THEY PUT HIM BACK UNDER Hyperlipidemia Hypertension Mitral regurgitation Permanent atrial fibrillation Surgical History H/O colonoscopy S/P CABG x 2 S/P TURP Family History Brother Family history of esophageal cancer Mother , age 73 of a stroke and [place] Myocardial infarction Stroke Father , age 31 in a gas explosion No problems noted. 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 [employer] Feels Safe at Home: Yes Assistive Devices: None Allergies Allergies Allergy/AdvReac Type Severity Reaction Status Date / Time No Known Allergies Allergy Verified 07/06/21 03:10 Home Meds Home Medications Medication Instructions Recorded Confirmed omeprazole magnesium 20 mg 20 mg PO QAM 12/30/17 07/06/21 tablet,delayed release (Prilosec OTC) rosuvastatin 40 mg tablet 40 mg PO PM 09/17/19 07/06/21 cyanocobalamin (vitamin B-12) 100 100 mcg PO QAM 10/15/19 07/06/21 mcg tablet zolpidem 5 mg tablet (Ambien) 5 mg PO HS PRN tab 04/09/20 07/06/21 acetaminophen 325 mg tablet 650 mg PO DIRECTED PRN 10/03/20 07/06/21 (Tylenol) diltiazem HCl 120 mg 120 mg PO PM 02/25/21 07/06/21 capsule,extended release 24 hr aspirin 325 mg tablet,delayed 325 mg PO DAILY 07/06/21 07/06/21 release cholecalciferol (vitamin D3) 25 25 mcg PO DAILY 07/06/21 07/06/21 mcg (1,000 unit) tablet (Vitamin D3) citalopram 40 mg tablet 20 mg PO DAILY 07/06/21 07/06/21 diclofenac sodium 1 % topical gel 0 g TOPICAL TID PRN 07/06/21 07/06/21 furosemide 40 mg tablet 40 mg PO DAILY PRN 07/06/21 07/06/21 gabapentin 100 mg tablet 200 mg PO HS 07/06/21 07/06/21 tamsulosin 0.4 mg capsule 0.4 mg PO DAILY 07/06/21 07/06/21 Previous Rx's Medication Instructions Recorded apixaban 5 mg tablet (Eliquis) 5 mg PO BID #60 tab 12/11/18 nitroglycerin 0.4 mg sublingual 0.4 mg SUBLINGUAL Q5M PRN #1 btl 03/18/19 tablet isosorbide mononitrate 30 mg 30 mg PO QAM #30 tab 06/22/20 tablet,extended release 24 hr furosemide 40 mg tablet 20 mg PO QAM #90 tab 09/16/20 metoprolol tartrate 50 mg tablet 50 mg PO BID #180 tab 09/16/20 Results & Data (ED) Vital Signs Vital Signs - 24 hr 07/06/21 01:01 07/06/21 01:03 07/06/21 01:27 Temperature 36.1 C L Temperature Source Temporal Artery Scan Pulse Rate 66 56 L Pulse Rate [Apical] Respiratory Rate 18 Respiratory Depth Normal Blood Pressure 119/58 L Blood Pressure [Right Arm] Blood Pressure Mean 78 Blood Pressure Mean [Right Arm] Blood Pressure Position [Right Arm] Pulse Oximetry 90 84 L 90 Oxygen Delivery Method Nasal Cannula Room Air Nasal Cannula Oxygen Flow Rate 3 3 Sepsis Recent Fever Within 48 Hours No Sepsis New/Unexplained Change in Mental Status N/A Sepsis Action Taken by Nursing No Action Required 07/06/21 03:43 07/06/21 04:46 Temperature Temperature Source Pulse Rate Pulse Rate [Apical] 63 69 Respiratory Rate 16 23 Respiratory Depth Blood Pressure Blood Pressure [Right Arm] 129/69 133/58 L Blood Pressure Mean Blood Pressure Mean [Right Arm] 89 83 Blood Pressure Position [Right Arm] Lying Lying Pulse Oximetry 91 94 Oxygen Delivery Method Nasal Cannula Nasal Cannula Oxygen Flow Rate 3 3 Sepsis Recent Fever Within 48 Hours Sepsis New/Unexplained Change in Mental Status Sepsis Action Taken by Nursing Laboratory Data Result diagrams: 07/06/21 01:30 07/06/21 01:30 Lab Results 07/06/21 07/06/21 07/06/21 Range/Units 01:30 01:30 01:30 WBC 9.41 (4.8-10.8) K/uL RBC 3.19 L (4.7-6.1) M/uL Hgb 11.3 L (14.0-18.0) g/dL Hct 34.1 L (42-52) % MCV 106.9 H (80-100) fL MCH 35.4 H (25-34) pg MCHC 33.1 (32-36) g/dL RDW Std Deviation 65.6 H (36.4-46.3) fL RDW Coeff of Marilynn 17.0 H (11.5-14.5) % Plt Count 224 (130-400) K/uL MPV 9.2 (7.4-10.4) fL Immature Gran % (Auto) 0.2 % Neut % (Auto) 86.9 % Lymph % (Auto) 3.5 % Davidson % (Auto) 8.9 % Eos % (Auto) 0.3 % Baso % (Auto) 0.2 % Neut # (Auto) 8.17 H (1.4-6.5) K/uL Lymph # (Auto) 0.33 L (1.2-3.4) K/uL Davidson # (Auto) 0.84 H (0.11-0.59) K/uL Eos # (Auto) 0.03 (0-0.5) K/uL Baso # (Auto) 0.02 (0-0.2) K/uL Immature Gran # (Auto) 0.02 (0.00-0.02) K/uL D-Dimer (0-500) ug/L FEU Sodium 137 (136-145) mmol/L Potassium 4.1 (3.5-5.1) mmol/L Chloride 102 (98-107) mmol/L Carbon Dioxide 26 (21-32) mmol/L Anion Gap 9 (3-11) BUN 39 H (6-23) mg/dl Creatinine 1.93 H (0.6-1.4) mg/dl Est Cr Clr Drug Dosing 34.7 ml/min Est GFR ( Amer) 37.0 ml/min Est GFR (Non-Af Amer) 32.0 ml/min BUN/Creatinine Ratio 20.2 H (10-20) Glucose 134 H (70-99(Fasting)) mg/dl Calcium 8.7 (8.5-10.1) mg/dl Magnesium 2.2 (1.7-2.4) mg/dl Total Bilirubin 0.6 (0.2-1.0) mg/dl AST 23 (13-39) U/L ALT 20 (7-52) U/L Alkaline Phosphatase 94 (34-104) U/L Troponin I (0-0.04) ng/ml B-Natriuretic Peptide (0-100) pg/ml Total Protein 7.2 (6.0-8.3) gm/dl Albumin 4.0 (3.4-5.0) gm/dl Globulin 3.2 (2.5-4.0) gm/dl Albumin/Globulin Ratio 1.3 (0.9-2) TSH 2.493 (0.300-4.500) uIu/ml Urine Color Urine Appearance (Clear) Urine pH (4.5-7.5) Ur Specific [place] (1.000-1.030) Urine Protein (Negative) Urine Glucose (UA) (Negative) Urine Ketones (Negative) Urine Blood (Negative) Urine Nitrite (Negative) Urine Bilirubin (Negative) Urine Urobilinogen (Negative) Ur Leukocyte Esterase (Negative) Urine WBC (Auto) (0-5) /hpf Urine RBC (Auto) (0-4) /hpf U Hyaline Cast (Auto) (0-5) /lpf U Epithel Cells (Auto) (0-5) /lpf Urine Bacteria (Auto) (Negative) Ur Renal Epithelial Cell SARS-CoV-2, RNA, NAAT (NEGATIVE) 07/06/21 07/06/21 07/06/21 Range/Units 01:30 01:30 03:42 WBC (4.8-10.8) K/uL RBC (4.7-6.1) M/uL Hgb (14.0-18.0) g/dL Hct (42-52) % MCV (80-100) fL MCH (25-34) pg MCHC (32-36) g/dL RDW Std Deviation (36.4-46.3) fL RDW Coeff of Marilynn (11.5-14.5) % Plt Count (130-400) K/uL MPV (7.4-10.4) fL Immature Gran % (Auto) % Neut % (Auto) % Lymph % (Auto) % Davidson % (Auto) % Eos % (Auto) % Baso % (Auto) % Neut # (Auto) (1.4-6.5) K/uL Lymph # (Auto) (1.2-3.4) K/uL Davidson # (Auto) (0.11-0.59) K/uL Eos # (Auto) (0-0.5) K/uL Baso # (Auto) (0-0.2) K/uL Immature Gran # (Auto) (0.00-0.02) K/uL D-Dimer 1150 H* (0-500) ug/L FEU Sodium (136-145) mmol/L Potassium (3.5-5.1) mmol/L Chloride (98-107) mmol/L Carbon Dioxide (21-32) mmol/L Anion Gap (3-11) BUN (6-23) mg/dl Creatinine (0.6-1.4) mg/dl Est Cr Clr Drug Dosing ml/min Est GFR ( Amer) ml/min Est GFR (Non-Af Amer) ml/min BUN/Creatinine Ratio (10-20) Glucose (70-99(Fasting)) mg/dl Calcium (8.5-10.1) mg/dl Magnesium (1.7-2.4) mg/dl Total Bilirubin (0.2-1.0) mg/dl AST (13-39) U/L ALT (7-52) U/L Alkaline Phosphatase (34-104) U/L Troponin I 0.14 H* (0-0.04) ng/ml B-Natriuretic Peptide (0-100) pg/ml Total Protein (6.0-8.3) gm/dl Albumin (3.4-5.0) gm/dl Globulin (2.5-4.0) gm/dl Albumin/Globulin Ratio (0.9-2) TSH (0.300-4.500) uIu/ml Urine Color Urine Appearance (Clear) Urine pH (4.5-7.5) Ur Specific [place] (1.000-1.030) Urine Protein (Negative) Urine Glucose (UA) (Negative) Urine Ketones (Negative) Urine Blood (Negative) Urine Nitrite (Negative) Urine Bilirubin (Negative) Urine Urobilinogen (Negative) Ur Leukocyte Esterase (Negative) Urine WBC (Auto) (0-5) /hpf Urine RBC (Auto) (0-4) /hpf U Hyaline Cast (Auto) (0-5) /lpf U Epithel Cells (Auto) (0-5) /lpf Urine Bacteria (Auto) (Negative) Ur Renal Epithelial Cell SARS-CoV-2, RNA, NAAT NEGATIVE (NEGATIVE) 07/06/21 07/06/21 Range/Units 03:53 03:55 WBC (4.8-10.8) K/uL RBC (4.7-6.1) M/uL Hgb (14.0-18.0) g/dL Hct (42-52) % MCV (80-100) fL MCH (25-34) pg MCHC (32-36) g/dL RDW Std Deviation (36.4-46.3) fL RDW Coeff of Marilynn (11.5-14.5) % Plt Count (130-400) K/uL MPV (7.4-10.4) fL Immature Gran % (Auto) % Neut % (Auto) % Lymph % (Auto) % [place] % (Auto) % Eos % (Auto) % Baso % (Auto) % Neut # (Auto) (1.4-6.5) K/uL Lymph # (Auto) (1.2-3.4) K/uL [place] # (Auto) (0.11-0.59) K/uL Eos # (Auto) (0-0.5) K/uL Baso # (Auto) (0-0.2) K/uL Immature Gran # (Auto) (0.00-0.02) K/uL D-Dimer (0-500) ug/L FEU Sodium (136-145) mmol/L Potassium (3.5-5.1) mmol/L Chloride (98-107) mmol/L Carbon Dioxide (21-32) mmol/L Anion Gap (3-11) BUN (6-23) mg/dl Creatinine (0.6-1.4) mg/dl Est Cr Clr Drug Dosing ml/min Est GFR ( Amer) ml/min Est GFR (Non-Af Amer) ml/min BUN/Creatinine Ratio (10-20) Glucose (70-99(Fasting)) mg/dl Calcium (8.5-10.1) mg/dl Magnesium (1.7-2.4) mg/dl Total Bilirubin (0.2-1.0) mg/dl AST (13-39) U/L ALT (7-52) U/L Alkaline Phosphatase (34-104) U/L Troponin I (0-0.04) ng/ml B-Natriuretic Peptide 663 H (0-100) pg/ml Total Protein (6.0-8.3) gm/dl Albumin (3.4-5.0) gm/dl Globulin (2.5-4.0) gm/dl Albumin/Globulin Ratio (0.9-2) TSH (0.300-4.500) uIu/ml Urine Color Yellow Urine Appearance Cloudy A (Clear) Urine pH 5.0 (4.5-7.5) Ur Specific [place] 1.027 (1.000-1.030) Urine Protein 2+ H (Negative) Urine Glucose (UA) Negative (Negative) Urine Ketones Trace H (Negative) Urine Blood 1+ H (Negative) Urine Nitrite Negative (Negative) Urine Bilirubin Negative (Negative) Urine Urobilinogen Negative (Negative) Ur Leukocyte Esterase Negative (Negative) Urine WBC (Auto) 1-5 (0-5) /hpf Urine RBC (Auto) 0-4 (0-4) /hpf U Hyaline Cast (Auto) >30 H (0-5) /lpf U Epithel Cells (Auto) >30 H (0-5) /lpf Urine Bacteria (Auto) Negative (Negative) Ur Renal Epithelial Cell Not Reportable SARS-CoV-2, RNA, NAAT (NEGATIVE) Administered Medications Acetaminophen (Acetaminophen 500 Mg Tab) 1,000 mg PO Q8H [facility] Stop: 08/05/21 08:59 Last Admin: 07/07/21 01:48 Dose: 1,000 mg Documented by: [id number] Admin: 07/06/21 17:13 Dose: 1,000 mg Documented by: [id number] Admin: 07/06/21 09:07 Dose: 1,000 mg Documented by: [id number] Apixaban (Apixaban 2.5 Mg Tab) 2.5 mg PO BID [facility] Stop: 08/05/21 20:59 Last Admin: 07/06/21 20:18 Dose: 2.5 mg Documented by: [id number] Cyanocobalamin (Cyanocobalamin (B-12) 100 Mcg Tablet) 100 mcg PO QAM [facility] Stop: 08/05/21 08:59 Last Admin: 07/06/21 09:08 Dose: 100 mcg Documented by: [id number] Diltiazem HCl (Diltiazem Hcl 120 Mg Capcr) 120 mg PO PM [facility] Stop: 08/05/21 20:59 Last Admin: 07/06/21 20:18 Dose: 120 mg Documented by: [id number] Gabapentin (Gabapentin 100 Mg Cap) 200 mg PO HS [facility] Stop: 08/05/21 20:59 Last Admin: 07/06/21 20:18 Dose: 200 mg Documented by: [id number] Isosorbide Mononitrate (Isosorbide [place] Extended Rel 30 Mg Tabcr) 30 mg PO QAM [facility] Stop: 08/05/21 08:59 Last Admin: 07/06/21 09:08 Dose: 30 mg Documented by: [id number] Lorazepam (Lorazepam 1 Mg Tab) 1 mg PO HS PRN PRN Reason: Insomnia Stop: 08/05/21 08:05 Last Admin: 07/06/21 20:17 Dose: 1 mg Documented by: [id number] Metoprolol Tartrate (Metoprolol Tartrate 50 Mg Tab) 50 mg PO BID [facility] Stop: 08/05/21 08:59 Last Admin: 07/06/21 20:18 Dose: 50 mg Documented by: [id number] Admin: 07/06/21 09:09 Dose: 50 mg Documented by: [id number] Pantoprazole Sodium (Pantoprazole 40 Mg Tab) 40 mg PO QAM [facility] Stop: 08/05/21 08:59 Last Admin: 07/06/21 09:09 Dose: 40 mg Documented by: [id number] Rosuvastatin Calcium (Rosuvastatin Calcium 20 Mg Tab) 40 mg PO PM [facility] Stop: 08/05/21 20:59 Last Admin: 07/06/21 20:18 Dose: 40 mg Documented by: [id number] Tamsulosin HCl (Tamsulosin Hcl 0.4 Mg Cap) 0.4 mg PO DAILY [facility] Stop: 08/05/21 08:59 Last Admin: 07/06/21 09:09 Dose: 0.4 mg Documented by: [id number] Vitamin D (Cholecalciferol 1,000 Units 25 Mcg Tab) 1,000 units PO DAILY [facility] Stop: 08/05/21 08:59 Last Admin: 07/06/21 09:08 Dose: 1,000 units Documented by: [id number] Discontinued Medications Apixaban (Apixaban 5 Mg Tablet) 5 mg PO BID [facility] Stop: 08/05/21 08:59 Last Admin: 07/06/21 09:08 Dose: 5 mg Documented by: [id number] Citalopram Hydrobromide (Citalopram 20 Mg Tab) 20 mg PO DAILY [facility] Stop: 08/05/21 08:59 Last Admin: 07/06/21 10:56 Dose: Not Given Documented by: [id number] Sodium Chloride (Nss) 500 mls @ 999 mls/hr IV .Q31M ONE Stop: 07/06/21 03:12 Last Infusion: 07/06/21 03:44 Dose: 0 mls/hr Documented by: [id number] Admin: 07/06/21 03:17 Dose: 999 mls/hr Documented by: [id number] Lorazepam (Lorazepam 2 Mg/1 Ml Vial) 1.5 mg IV NOW [facility] Stop: 07/06/21 06:36 Last Admin: 07/06/21 08:10 Dose: Not Given Documented by: [id number] Discharge Plan Visit Data Chief Complaint: Syncope Stated Complaint: WEAK,DEHYDRATED,FAINTING ED Provider: Mara Box Discharge Problem: Hypoxia, Syncope, Elevated troponin, Acute kidney injury Patient Disposition: Admitted As Inpatient Discharge Instructions Interventions: ED Discharge Assessment Last Done: 07/06/21 07:40 Discharge Problem: Syncope Qualifiers: Syncope type: unspecified Qualified Code(s): R55 - Syncope and collapse
[2021-07-06 02:00] LABS: Albumin Globulin Ratio 1.3 (0.9-2); BUN Creatinine Ratio 20.2 (10-20); Bilirubin,Total 0.6 mg/dl (0.2-1.0); Calcium 8.7 mg/dl (8.5-10.1); Creatinine Clr Calc Pharmacy 34.7 ml/min; Globulin 3.2 gm/dl (2.5-4.0); Magnesium 2.2 mg/dl (1.7-2.4); Potassium 4.1 mmol/L (3.5-5.1); Total Protein 7.2 gm/dl (6.0-8.3)
[2021-07-06] MEDS ORDERED: SODIUM CHLORIDE 0.9% 500 ML IV ONE (02:42)
[2021-07-06 03:52] LABS: D Dimer 1150 ug/L FEU (0-500)
[2021-07-06 04:53] LABS: Appearance Urine Cloudy (Clear); Bacteria Urine Automated Negative (Negative); Bilirubin Urine Negative (Negative); Blood Urine 1+ (Negative); Color Urine Yellow; Epithelial Cell Urine Auto >30 /lpf (0-5); Glucose Urine UA Negative (Negative); Ketones Urine Trace (Negative); Leukocyte Esterase Urine Negative (Negative); Nitrite Urine Negative (Negative); Protein Urine 2+ (Negative); RBC Urine Automated 0-4 /hpf (0-4); Specific Gravity Urine 1.027 (1.000-1.030); Urobilinogen Urine Negative (Negative)
[2021-07-06 05:31] LABS: Cast Urine Automated >30 /lpf (0-5)
--- NOTE | 2021-07-06 05:33 | History & Physical Report ---
Date of Service July 06, 2021 Assessment & Plan (1) Permanent atrial fibrillation: Plan: 81 yo M PMHx AFib on chronic anticoagulation with apixaban HTN, HLD, CKD, CAD, anxiety, diastolic CHF presented to ER after 2 syncopal episodes that occurred at home admitted to telemetry for further evaluation of syncope. #Syncopal episode Likely multifactorial etiology not clear at present. Patient with history of atrial fibrillation on chronic anticoagulation with apixaban. Likely explanation is gastroenteritis coupled with dehydration given the patient's history of nausea and vomiting. PE is significantly less likely as patient heart rate is 69, he saturating well on room air, Wells score is 1.5, only indication of the PE would be elevated D-dimer which can be elevated with sickness as well. Would have a low threshold for performing CTA if O2 sat start to decompensate. We will admit the patient to telemetry, provide IV hydration, and supportive care for his gastroenteritis. Day team to consider cardiology consultation -Observe on telemetry -Received 500 bolus in the ED -Low threshold for initiating more aggressive work-up -Consider CTA -Consider cardiology consult -Consider neurological etiology -orthostatics -Neuro checks with GCS q shift - recent fall, hit head, on Apixaban #Gastroenteritis On admission noted by a family member that his family has been suffering from GI symptoms. Treat symptomatically -As needed Zofran for nausea -Scheduled Pepto-Bismol every 6 hours -IV fluids as needed -Routine supportive care #EDUARDA on CKD Baseline creatinine appears to be 1.5 -Daily BMP -Holding furosemide in the setting of EDUARDA #Atrial fibrillation on chronic anticoagulation Low likelihood for PE despite elevated D-dimer, Wells score 1.5 -Continue apixaban -Continue diltiazem 120 mg p.o. p.m. #Coronary artery disease status post CABG x2 Tropes slightly elevated on admission likely secondary to demand ischemia -Continue metoprolol 50 mg twice daily -Continue isosorbide mononitrate -Continue rosuvastatin 40 mg -Continue aspirin -trend tropes #Hypoxia Baseline O2 saturations of 88-94 does not wear oxygen at home. wells score 1.5 anticoagulated not consistent with PE #Diastolic CHF Not in acute failure -Holding furosemide 20 mg every morning -As needed 40 mg -Daily weights -Monitor I's and O's #Hypertension Cardiac meds as above -Holding furosemide in the setting of EDUARDA #BPH Continue tamsulosin #Depression -Continue citalopram #Chronic benzodiazepine Use Has not slept in greater than 24 hours requesting 1 mg Ativan HS as needed. Notes that he takes this at home FENa: Heart healthy diet Code Status: Full code DVT PPX: Apixaban PT/OT: Consulted Case Management: Consulted Dispo: Telemetry Bong Hope MD PGY 3, FCM This chart was completed utilizing H[employer] voice recognition software. Grammatical errors, random word insertions, pronoun errors, and in complete sentences are an occasional consequence of the system. Any questions or concerns about the content, text, or information contained within the body of this dictation should be addressed directly to the physician for clarification. (2) Chronic kidney disease: (3) Chronic diastolic heart failure: (4) Aortic insufficiency: (5) CAD (coronary artery disease), [place] coronary artery: (6) Hypertension: (7) Hyperlipidemia: (8) Anxiety: (9) Syncope: (10) Gastroenteritis: History of Present Illness Primary Care Provider: Phil Hicks MD 81 yo M PMHx AFib on chronic anticoagulation with apixaban HTN, HLD, CKD, CAD, anxiety, , diastolic CHF presented to ER after 2 syncopal episodes that occurred at home admitted to telemetry for further evaluation of syncope . Patient reports he was slightly dehydrated earlier today and was having some episodes of weakness and vomiting. He had been monitoring his vital signs at home and noticed to been having episodes of hypotension and hypoxia. He notes that he and his family members have been suffering from a GI bug. Upon arrival in the emergency department routine labs were obtained CBC was notable for hemoglobin of 11.3 D-dimer elevated to 1150, serum chemistries demonstrating elevated creatinine to 1.93 baseline appears to be 1.5 glucose 134, troponin slightly elevated to 0.14, BNP 663, UA with 2+ protein. Chest x- ray was as interpreted by me notable for cardiomegaly, head CT was negative, CT C-spine was consistent with mild to level degenerative disc disease no acute fractures or traumatic subluxation ECG demonstrating A. fib with a rate of 67 and occasional PVCs. Given the concerning laboratory findings, syncopal episodes, and history of atrial fibrillation patient the hospital service was consulted for admission for further evaluation and monitoring of his syncopal episodes. Upon arrival to the room patient was lying in bed and tired. He HPI as described above with the following notable exceptions. He notes that his family has been suffering from a gastrointestinal illness recently he noted the other day he was experience nausea and vomiting. He states he has not been able to keep up with his p.o. fluid intake and has noticed his urine is gotten progressively darker. He states that the first episode of syncope occurred after a bowel movement when he ran downstairs to greet his sister at the door. He remembers the events leading up to the syncopal episode and the events immediately afterwards. During this episode he said he bit his tongue and his sister was concerned about the tongue bite. She did not describe any dazed or confused or other symptoms. The second syncopal episode happened at rest while he was sitting down. He notified his son and this prompted presentation in the emergency department. Of note patient recently had an extensive laboratory work-up from the [place]. Allergies Allergy/AdvReac Type Severity Reaction Status Date / Time No Known Allergies Allergy Verified 07/06/21 03:10 Home Medications Medication Instructions Recorded Confirmed Type omeprazole magnesium 20 mg 20 mg PO QAM 12/30/17 07/06/21 History tablet,delayed release (Prilosec OTC) apixaban 5 mg tablet (Eliquis) 5 mg PO BID #60 tab 12/11/18 07/06/21 Rx nitroglycerin 0.4 mg sublingual 0.4 mg SUBLINGUAL Q5M PRN #1 btl 03/18/19 07/06/21 Rx tablet rosuvastatin 40 mg tablet 40 mg PO PM 09/17/19 07/06/21 History cyanocobalamin (vitamin B-12) 100 100 mcg PO QAM 10/15/19 07/06/21 History mcg tablet zolpidem 5 mg tablet (Ambien) 5 mg PO HS PRN tab 04/09/20 07/06/21 History isosorbide mononitrate 30 mg 30 mg PO QAM #30 tab 06/22/20 07/06/21 Rx tablet,extended release 24 hr furosemide 40 mg tablet 20 mg PO QAM #90 tab 09/16/20 07/06/21 Rx metoprolol tartrate 50 mg tablet 50 mg PO BID #180 tab 09/16/20 07/06/21 Rx acetaminophen 325 mg tablet 650 mg PO DIRECTED PRN 10/03/20 07/06/21 History (Tylenol) diltiazem HCl 120 mg 120 mg PO PM 02/25/21 07/06/21 History capsule,extended release 24 hr aspirin 325 mg tablet,delayed 325 mg PO DAILY 07/06/21 07/06/21 History release cholecalciferol (vitamin D3) 25 25 mcg PO DAILY 07/06/21 07/06/21 History mcg (1,000 unit) tablet (Vitamin D3) citalopram 40 mg tablet 20 mg PO DAILY 07/06/21 07/06/21 History diclofenac sodium 1 % topical gel 0 g TOPICAL TID PRN 07/06/21 07/06/21 History furosemide 40 mg tablet 40 mg PO DAILY PRN 07/06/21 07/06/21 History gabapentin 100 mg tablet 200 mg PO HS 07/06/21 07/06/21 History tamsulosin 0.4 mg capsule 0.4 mg PO DAILY 07/06/21 07/06/21 History Past Med/Surg History Medical History (Updated 07/06/21 @ 05:37 by Bong Hope MD) Acute alteration in mental status Aortic insufficiency BPH with obstruction/lower urinary tract symptoms CAD (coronary artery disease), [place] coronary artery Chronic diastolic heart failure Chronic kidney disease Confusion Fall History of anesthesia reaction CONVULSIONS POST OP QUICK COMING AWAKE FROM CABG SURG 20 YRS AGO. DENIES SEIZURES, SAYS HE 'WOKE UP TOO QUICKLY' AND THEY PUT HIM BACK UNDER Hyperlipidemia Hypertension Mitral regurgitation Permanent atrial fibrillation Surgical History H/O colonoscopy S/P CABG x 2 S/P TURP Family History Brother Family history of esophageal cancer Mother , age 73 of a stroke and [place] Myocardial infarction Stroke Father , age 31 in a gas explosion No problems noted. 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 [employer] Feels Safe at Home: Yes Assistive Devices: None Review of Systems Review of Systems: as above Physical Exam Physical Exam: General: Sitting upright in bed in no acute distress HEENT: Normocephalic atraumatic Neck: Bruise on the right mandible otherwise normal to visual inspection Cardiac: Irregularly irregular rhythm, rate controlled, systolic and diastolic murmurs present, negative pedal edema, negative calf tenderness Respiratory: Bibasilar trace crackles, otherwise clear to auscultation, no increased work of breathing GI: Distended abdomen, soft, nontender MSK: Moves all extremities Skin: Bruises from falling Neuro: Alert and oriented x3 Psych: Calm and cooperative with the interview Results & Data Results & Data ([facility]) Vital Signs (Past 12 Hours) Vital Signs Temp Pulse Pulse Resp BP BP Pulse Ox 07/06/21 04:46 69 23 133/58 L 94 07/06/21 03:43 63 16 129/69 91 07/06/21 01:27 56 L 90 07/06/21 01:03 36.1 C L 66 18 119/58 L 84 L 07/06/21 01:01 90 Laboratory Results 07/06/21 07/06/21 07/06/21 Range/Units 03:55 03:53 03:42 WBC (4.8-10.8) K/uL RBC (4.7-6.1) M/uL Hgb (14.0-18.0) g/dL Hct (42-52) % MCV (80-100) fL MCH (25-34) pg MCHC (32-36) g/dL RDW Std Deviation (36.4-46.3) fL RDW Coeff of Marilynn (11.5-14.5) % Plt Count (130-400) K/uL MPV (7.4-10.4) fL Immature Gran % (Auto) % Neut % (Auto) % Lymph % (Auto) % [place] % (Auto) % Eos % (Auto) % Baso % (Auto) % Neut # (Auto) (1.4-6.5) K/uL Lymph # (Auto) (1.2-3.4) K/uL [place] # (Auto) (0.11-0.59) K/uL Eos # (Auto) (0-0.5) K/uL Baso # (Auto) (0-0.2) K/uL Immature Gran # (Auto) (0.00-0.02) K/uL D-Dimer (0-500) ug/L FEU Sodium (136-145) mmol/L Potassium (3.5-5.1) mmol/L Chloride (98-107) mmol/L Carbon Dioxide (21-32) mmol/L Anion Gap (3-11) BUN (6-23) mg/dl Creatinine (0.6-1.4) mg/dl Est Cr Clr Drug Dosing ml/min Est GFR ( Amer) ml/min Est GFR (Non-Af Amer) ml/min BUN/Creatinine Ratio (10-20) Glucose (70-99(Fasting)) mg/dl Calcium (8.5-10.1) mg/dl Magnesium (1.7-2.4) mg/dl Total Bilirubin (0.2-1.0) mg/dl AST (13-39) U/L ALT (7-52) U/L Alkaline Phosphatase (34-104) U/L Troponin I (0-0.04) ng/ml B-Natriuretic Peptide 663 H (0-100) pg/ml Total Protein (6.0-8.3) gm/dl Albumin (3.4-5.0) gm/dl Globulin (2.5-4.0) gm/dl Albumin/Globulin Ratio (0.9-2) TSH (0.300-4.500) uIu/ml Urine Color Yellow Urine Appearance Cloudy A (Clear) Urine pH 5.0 (4.5-7.5) Ur Specific [place] 1.027 (1.000-1.030) Urine Protein 2+ H (Negative) Urine Glucose (UA) Negative (Negative) Urine Ketones Trace H (Negative) Urine Blood 1+ H (Negative) Urine Nitrite Negative (Negative) Urine Bilirubin Negative (Negative) Urine Urobilinogen Negative (Negative) Ur Leukocyte Esterase Negative (Negative) Urine WBC (Auto) 1-5 (0-5) /hpf Urine RBC (Auto) 0-4 (0-4) /hpf U Hyaline Cast (Auto) >30 H (0-5) /lpf U Epithel Cells (Auto) >30 H (0-5) /lpf Urine Bacteria (Auto) Negative (Negative) Ur Renal Epithelial Cell Not Reportable SARS-CoV-2, RNA, NAAT NEGATIVE (NEGATIVE) 07/06/21 07/06/21 07/06/21 Range/Units 01:30 01:30 01:30 WBC (4.8-10.8) K/uL RBC (4.7-6.1) M/uL Hgb (14.0-18.0) g/dL Hct (42-52) % MCV (80-100) fL MCH (25-34) pg MCHC (32-36) g/dL RDW Std Deviation (36.4-46.3) fL RDW Coeff of Marilynn (11.5-14.5) % Plt Count (130-400) K/uL MPV (7.4-10.4) fL Immature Gran % (Auto) % Neut % (Auto) % Lymph % (Auto) % [place] % (Auto) % Eos % (Auto) % Baso % (Auto) % Neut # (Auto) (1.4-6.5) K/uL Lymph # (Auto) (1.2-3.4) K/uL [place] # (Auto) (0.11-0.59) K/uL Eos # (Auto) (0-0.5) K/uL Baso # (Auto) (0-0.2) K/uL Immature Gran # (Auto) (0.00-0.02) K/uL D-Dimer 1150 H* (0-500) ug/L FEU Sodium (136-145) mmol/L Potassium (3.5-5.1) mmol/L Chloride (98-107) mmol/L Carbon Dioxide (21-32) mmol/L Anion Gap (3-11) BUN (6-23) mg/dl Creatinine (0.6-1.4) mg/dl Est Cr Clr Drug Dosing ml/min Est GFR ( Amer) ml/min Est GFR (Non-Af Amer) ml/min BUN/Creatinine Ratio (10-20) Glucose (70-99(Fasting)) mg/dl Calcium (8.5-10.1) mg/dl Magnesium (1.7-2.4) mg/dl Total Bilirubin (0.2-1.0) mg/dl AST (13-39) U/L ALT (7-52) U/L Alkaline Phosphatase (34-104) U/L Troponin I 0.14 H* (0-0.04) ng/ml B-Natriuretic Peptide (0-100) pg/ml Total Protein (6.0-8.3) gm/dl Albumin (3.4-5.0) gm/dl Globulin (2.5-4.0) gm/dl Albumin/Globulin Ratio (0.9-2) TSH 2.493 (0.300-4.500) uIu/ml Urine Color Urine Appearance (Clear) Urine pH (4.5-7.5) Ur Specific [place] (1.000-1.030) Urine Protein (Negative) Urine Glucose (UA) (Negative) Urine Ketones (Negative) Urine Blood (Negative) Urine Nitrite (Negative) Urine Bilirubin (Negative) Urine Urobilinogen (Negative) Ur Leukocyte Esterase (Negative) Urine WBC (Auto) (0-5) /hpf Urine RBC (Auto) (0-4) /hpf U Hyaline Cast (Auto) (0-5) /lpf U Epithel Cells (Auto) (0-5) /lpf Urine Bacteria (Auto) (Negative) Ur Renal Epithelial Cell SARS-CoV-2, RNA, NAAT (NEGATIVE) 07/06/21 07/06/21 Range/Units 01:30 01:30 WBC 9.41 (4.8-10.8) K/uL RBC 3.19 L (4.7-6.1) M/uL Hgb 11.3 L (14.0-18.0) g/dL Hct 34.1 L (42-52) % MCV 106.9 H (80-100) fL MCH 35.4 H (25-34) pg MCHC 33.1 (32-36) g/dL RDW Std Deviation 65.6 H (36.4-46.3) fL RDW Coeff of Marilynn 17.0 H (11.5-14.5) % Plt Count 224 (130-400) K/uL MPV 9.2 (7.4-10.4) fL Immature Gran % (Auto) 0.2 % Neut % (Auto) 86.9 % Lymph % (Auto) 3.5 % [place] % (Auto) 8.9 % Eos % (Auto) 0.3 % Baso % (Auto) 0.2 % Neut # (Auto) 8.17 H (1.4-6.5) K/uL Lymph # (Auto) 0.33 L (1.2-3.4) K/uL [place] # (Auto) 0.84 H (0.11-0.59) K/uL Eos # (Auto) 0.03 (0-0.5) K/uL Baso # (Auto) 0.02 (0-0.2) K/uL Immature Gran # (Auto) 0.02 (0.00-0.02) K/uL D-Dimer (0-500) ug/L FEU Sodium 137 (136-145) mmol/L Potassium 4.1 (3.5-5.1) mmol/L Chloride 102 (98-107) mmol/L Carbon Dioxide 26 (21-32) mmol/L Anion Gap 9 (3-11) BUN 39 H (6-23) mg/dl Creatinine 1.93 H (0.6-1.4) mg/dl Est Cr Clr Drug Dosing 34.7 ml/min Est GFR ( Amer) 37.0 ml/min Est GFR (Non-Af Amer) 32.0 ml/min BUN/Creatinine Ratio 20.2 H (10-20) Glucose 134 H (70-99(Fasting)) mg/dl Calcium 8.7 (8.5-10.1) mg/dl Magnesium 2.2 (1.7-2.4) mg/dl Total Bilirubin 0.6 (0.2-1.0) mg/dl AST 23 (13-39) U/L ALT 20 (7-52) U/L Alkaline Phosphatase 94 (34-104) U/L Troponin I (0-0.04) ng/ml B-Natriuretic Peptide (0-100) pg/ml Total Protein 7.2 (6.0-8.3) gm/dl Albumin 4.0 (3.4-5.0) gm/dl Globulin 3.2 (2.5-4.0) gm/dl Albumin/Globulin Ratio 1.3 (0.9-2) TSH (0.300-4.500) uIu/ml Urine Color Urine Appearance (Clear) Urine pH (4.5-7.5) Ur Specific [place] (1.000-1.030) Urine Protein (Negative) Urine Glucose (UA) (Negative) Urine Ketones (Negative) Urine Blood (Negative) Urine Nitrite (Negative) Urine Bilirubin (Negative) Urine Urobilinogen (Negative) Ur Leukocyte Esterase (Negative) Urine WBC (Auto) (0-5) /hpf Urine RBC (Auto) (0-4) /hpf U Hyaline Cast (Auto) (0-5) /lpf U Epithel Cells (Auto) (0-5) /lpf Urine Bacteria (Auto) (Negative) Ur Renal Epithelial Cell SARS-CoV-2, RNA, NAAT (NEGATIVE) Medications Administered Current Inpatient Medications Al Hydrox/Mg Hydrox/Simethicone (Aluminum/Magnesium Susp 30 Ml Udc) 15 ml PO Q4H PRN PRN Reason: Dyspepsia Stop: 08/05/21 05:47 Bismuth Subsalicylate (Bismuth Subsalicylate Susp) 30 ml PO Q6H PRN PRN Reason: Diarrhea Stop: 08/05/21 05:47 Lorazepam (Lorazepam 2 Mg/1 Ml Vial) 1.5 mg IV NOW STA Stop: 07/06/21 06:36 Ondansetron HCl (Ondansetron Inj 2 Mg/Ml 2 Ml Vial) 4 mg IV Q6H PRN PRN Reason: Nausea Stop: 08/05/21 05:47 Polyethylene Glycol (Polyethylene (Miralax) 17 Gm Pack) 17 gm PO DAILY PRN PRN Reason: Constipation Stop: 08/05/21 05:47 Code Status & VTE Plan Code Status Full Supervising Physician Co-Signing Physician Notes Patient seen and examined, chart reviewed, case discussed with Dr. Hope and I agree with the assessment and plan as documented above. Briefly, patient is an 81 yo male presenting with syncope x 2. Patient was recently ill with what sounds to be gastroenteritis. He had vomiting x 1 and diarrhea, watery for appx 1 week. He notes some dizziness with positional changes, dark urine. Syncope x 2 events as above. Denies chest pain, cough, SOB. No additional complaints On exam he is afebrile, HD stable, NAD Skin - bruising on right mandible, forearms HEENT - PERRL, no neck pain Heart +S1/S2, irregularly irregular, no m/r/g Lungs with bibasilar crackles Abd - mildly distended, tympanic with normoactive bowel sounds Ext - no edema Labs and images reviewed Assessment/Plan -Suspect orthostatic syncope - recent dehydration through GI losses -Telemetry monitoring -Neuro checks given recent head trauma -Uncertain significance of Ddimer - patient is anticoagulated on Apixaban - doubt PE - consider scanning -Mildly elevated trop - possibly secondary to hypotension - will repeat -Remainder as above (1) Hyperlipidemia Hyperlipidemia type: unspecified Qualified Code(s): E78.5 - Hyperlipidemia, unspecified (2) CAD (coronary artery disease), [place] coronary artery Associated angina: without angina [place] vs. transplanted heart: [place] heart Qualified Code(s): I25.10 - Atherosclerotic heart disease of [place] coronary artery without angina pectoris (3) Hypertension Hypertension type: unspecified Qualified Code(s): I10 - Essential (primary) hypertension
[2021-07-06] MEDS ORDERED: ONDANSETRON INJ 2 MG/ML 2 ML VIAL IV PRN (05:48)
[2021-07-06] MEDS ORDERED: POLYETHYLENE (MIRALAX) 17 GM PACK PO PRN (05:48)
[2021-07-06] MEDS ORDERED: BISMUTH SUBSALICYLATE SUSP PO PRN (05:48)
[2021-07-06] MEDS ORDERED: ALUMINUM/MAGNESIUM SUSP 30 ML UDC PO PRN (05:48)
[2021-07-06] MEDS ORDERED: LORazepam 2 MG/1 ML VIAL IV STA (06:35)
--- NOTE | 2021-07-06 06:48 | CT Scan Report ---
CT SCAN OF THE CERVICAL SPINE CLINICAL HISTORY: Fall. Syncope. COMPARISON STUDY: CT of the cervical spine dated 05/18/2007. TECHNIQUE: CT scan of the cervical spine is performed from the skull base to the upper thoracic spine . Images are reviewed in the axial, sagittal, and coronal planes. IV contrast was not administered fo r this examination. A dose lowering technique was utilized adhering to the principles of ALARA. FINDINGS: Skeletal structures: The skeletal structures are osteopenic. There is no evidence of fracture or subl uxation involving the cervical spine. Vertebral body height and alignment are maintained. There is mi nimal anterolisthesis at C3-C4 and C4-C5. Alignment is otherwise preserved. There is straightening of the cervical lordosis. Anterior osteophytes are seen throughout. The odontoid process and lateral ma sses are intact. The atlantoaxial articulation is preserved noting productive degenerative change. Th e spinous processes appear intact. There is moderate multilevel cervical spondylosis. Uncovertebral a nd facet arthropathy contribute to neural foraminal narrowing at several levels. Intervertebral discs: There is moderate disc space narrowing at C5-C6, C6-C7, and C7-T1. Central canal: Posterior disc osteophyte complexes at C5-C6 and C6-C7 may contribute to acquired comp romise of the central canal. Soft tissues: The prevertebral and paraspinous soft tissues are within normal limits. There is athero sclerotic calcification of the carotid bulbs. Calvarium: The visualized calvarium at the skull base appears intact. Brain parenchyma: Partially visualized brain parenchyma at the skull base is within normal limits. Sinuses and mastoids: The visualized paranasal sinuses are clear. The mastoid air cells are well pneu matized. Lung apices: Clear as visualized. IMPRESSION: 1. There is no evidence of fracture or subluxation involving the cervical spine. 2. Osteopenia and spondylotic change as above. ACT 112: Negative or not required by law. Electronically signed by: Joel Meza M.D. 07/06/2021 6:46 AM
--- NOTE | 2021-07-06 06:51 | Billing Data ---
Date of Service July 06, 2021 Coding Level of Care Code INT OBSERVATION CARE 70M LVL 3
--- NOTE | 2021-07-06 07:22 | CT Scan Report ---
HEAD CT NONCONTRAST CT DOSE: 1066.00 mGy.cm HISTORY: Head injury. syncope TECHNIQUE: Multiaxial CT images of the head were performed without the use of intravenous contrast. A utomated exposure control was utilized for this study. A dose lowering technique was utilized adheri ng to the principles of ALARA. Comparison: Head CT 10/03/2020. Findings: The paranasal sinuses and mastoid air cells are clear. The calvarium and skull base are int act. There is no mass, hematoma, midline shift, acute infarct. White matter hypodensity is nonspecifi c but suggestive of microvascular ischemic change. The ventricles and sulci demonstrate mild age-rela priti involutional changes. 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 Impression: No significant change compared to the prior study. No acute intracranial abnormality. ACT 112: Negative or not required by law. Electronically signed by: Toi Maria M.D. 07/06/2021 7:20 AM
--- NOTE | 2021-07-06 08:01 | XRay Report ---
XR chest 2V PA/lateral HISTORY: hypoxia COMPARISON: Chest 02/25/2021. FINDINGS: No pneumothorax. No pleural effusions. The heart remains enlarged. There are poststernotomy changes. There is mild central pulmonary vascular congestion without overt edema. This remains uncha nged. No new focal lung consolidations to suggest pneumonia. IMPRESSION: Cardiomegaly with mild pulmonary vascular congestion. This is similar to the prior study. ACT 112: Negative or not required by law. Electronically signed by: Toi Maria M.D. 07/06/2021 8:00 AM
[2021-07-06] MEDS ORDERED: DICLOFENAC SOD 1% GEL 100 GM TUBE EXT PRN (08:06)
[2021-07-06] MEDS ORDERED: NITROGLYCERIN SL 0.4 MG/TAB TAB SL PRN (08:06)
[2021-07-06] MEDS ORDERED: LORazepam 1 MG TAB PO PRN (08:06)
[2021-07-06] MEDS ORDERED: APIXABAN 5 MG TABLET PO SCH (09:00)
[2021-07-06] MEDS: ACETAMINOPHEN 500 MG TAB PO SCH ×2 (09:07→17:13)
[2021-07-06] MEDS: CYANOCOBALAMIN (B-12) 100 MCG TABLET PO SCH (09:08)
[2021-07-06] MEDS: CITALOPRAM 20 MG TAB PO SCH ×2 (09:08→10:56)
[2021-07-06] MEDS: CHOLECALCIFEROL 1,000 UNITS 25 MCG TAB PO SCH (09:08)
[2021-07-06] MEDS: ISOSORBIDE MONO EXTENDED REL 30 MG TABCR PO SCH (09:08)
[2021-07-06] MEDS: METOPROLOL TARTRATE 50 MG TAB PO SCH ×2 (09:09→20:18)
[2021-07-06] MEDS: TAMSULOSIN HCL 0.4 MG CAP PO SCH (09:09)
[2021-07-06] MEDS: PANTOprazole 40 MG TAB PO SCH (09:09)
[2021-07-06] MEDS ORDERED: Nursing to Pharmacy Communication SCH (09:30)
--- NOTE | 2021-07-06 14:06 | Hospitalist Progress Note ---
Date of Service July 06, 2021 Assessment & Plan (1) Syncope: Plan: Likely multifactorial etiology not clear at present. ?orthostatic d/t GE causing dehydration - Maintain obs on telemetry - Received 500 bolus of IVF in the ED - Low threshold for initiating more aggressive work-up * Could consider cardiology input for event/loop recorder * Could also consider EEG/neuro work up - Check orthostatic VS - Neuro checks q shift x 24 hrs (d/t fall and hit head on Eliquis) - Trop positive (see below), f/u downtrending - Update echo (last echo 09/2020) (2) Permanent atrial fibrillation: Plan: - Rate controlled - Continue apixaban, metoprolol, and diltiazem - Reduce Eliquis dose to 2.5mg BID (age >/= 80 and creat >1.5) (3) Gastroenteritis: Plan: On admission noted by a family member that his family has been suffering from GI symptoms. Treat symptomatically - As needed Zofran for nausea - Scheduled Pepto-Bismol every 6 hours ordered by admitting provider but discontinued (4) Chronic kidney disease: Plan: - Mild EDUARDA on CKD with a variable baseline creat, last creat 1.78 in Jan 2021 - Likely exacerbated by GI losses associated with GE - Holding Lasix (5) Chronic diastolic heart failure: Plan: - Chronic, not entirely convinced that he has an a/c exacerbation - PVC on imaging is not really changed from Jan 2021 chest xray - No recent weight gain, no LE edema - Last echo was September 2020, will order an updated one - Hypoxia is chronic, baseline 88-94% on room air but refuses home O2 (6) CAD (coronary artery disease), [place] coronary artery: Plan: H/o CABGx2 - Minimal bump in trop of 0.14, uncertain whether this is due to type II PA d/t demand ischemia or slightly worsening renal fxn - Regardless, f/u troponin has been repeated and trop is downtrending - Continue metoprolol 50 mg twice daily, Imdur, Crestor, and ASA (7) Hypertension: Plan: - BP controlled, continue Diltiazem and Metoprolol (8) Hyperlipidemia: Plan: - Continue Crestor (9) Anxiety: Plan: - Pt claims that he uses Ativan at home - Requested a dose this morning by resident, Ativan 1.5mg IV--order entered while pt still in ED and did not cross over - Will NOT give IV Ativan (and certainly not that high of a dose) and would ultimately prefer not to utilize benzos in the elderly - Pt is not prescribed Ativan at home, thus will not order - He is prescribed Ambien at HS prn insomnia - Continue Citalopram Plan: Interventions as outlined above Follow up labs in AM Update echo PT/OT eval D/C planning Plan of care d/w Dr. Marquez Admission and Anticipated Discharge Date Admission Date: July 06, 2021 Subjective Pt seen on rounds this morning. He was hospitalized early this morning d/t syncope x2. Pt reports that it is "because he is dehydrated." He has recently had GI sx concerning for gastroenteritis. He admits to having FELIZ but unclear if this is worse than normal for him. Denies cough, congestion, fever, chills, chest pain, n/v, or gu symptoms. Review of Systems Review of Systems: CONSTITUTIONAL: Denies weight loss/gain, fever and chills, fatigue, malaise, generalized weakness. HEENT: Denies changes in vision and hearing. RESPIRATORY: +FELIZ. Denies SOB at rest, cough, wheezing. CV: Denies palpitations, CP, lower extremity edema, orthopnea, PND. GI: Recent n/v/d which has since resolved. No abd pain. : Denies dysuria and urinary frequency, urgency, hesitancy. MUSCULOSKELETAL: Denies myalgia and joint pain. SKIN: Denies rash and pruritus. NEUROLOGICAL: +syncope x2. Denies headache, focal weakness, numbness, tingling. PSYCHIATRIC: Denies recent changes in mood. Denies anxiety and depression. Physical Exam Physical Exam: GENERAL: 81 yo well-developed, well-nourished elderly WM. NAD. LUNGS: Clear to auscultation bilaterally. No W/R/R. CARDIOVASCULAR: S1 S2 irreg ABDOMEN: Soft, non-tender and non-distended. BS normal x 4 quad. EXTREMITIES: No edema. Non-tender. Peripheral pulses +2/4. NEUROLOGIC: A&O x3. PSYCHIATRIC: Cooperative. Appropriate mood and affect. SKIN: Warm, dry, intact. No rashes or lesions. Results & Data Results & Data ([facility]) Vital Signs (Past 12 Hours) Vital Signs Temp Pulse Pulse Resp BP BP Pulse Ox 07/06/21 13:42 36.8 C 83 22 145/76 H 88 L 07/06/21 08:11 36.8 C 73 20 145/76 H 95 07/06/21 07:40 71 20 124/53 L 95 07/06/21 06:00 71 27 H 129/89 94 07/06/21 04:46 69 23 133/58 L 94 07/06/21 03:43 63 16 129/69 91 PG Care Time/CCT Total # of Minutes Spent Total Time Spent with Patient: Total time spent is greater than 50% in coordination of care (as documented) at patient's floor/unit and/or counseling patient: Coding Level of Care Code None Diagnoses Permanent atrial fibrillation I48.21 Chronic kidney disease N18.9 Chronic diastolic heart failure I50.32 CAD (coronary artery disease), [place] coronary artery I25.10 Associated angina: without angina [place] vs. transplanted heart: [place] heart Hypertension I10 Hypertension type: unspecified Hyperlipidemia E78.5 Hyperlipidemia type: unspecified Anxiety F41.9 Syncope R55 Gastroenteritis K52.9 (1) Hyperlipidemia Hyperlipidemia type: unspecified Qualified Code(s): E78.5 - Hyperlipidemia, unspecified (2) CAD (coronary artery disease), [place] coronary artery Associated angina: without angina [place] vs. transplanted heart: [place] heart Qualified Code(s): I25.10 - Atherosclerotic heart disease of [place] coronary artery without angina pectoris (3) Hypertension Hypertension type: unspecified Qualified Code(s): I10 - Essential (primary) hypertension
--- NOTE | 2021-07-06 14:37 | XCELERA ---
[id number]
[2021-07-06] MEDS: APIXABAN 2.5 MG TAB PO SCH (20:18)
[2021-07-06] MEDS ORDERED: GABAPENTIN 100 MG CAP PO SCH (21:00)
[2021-07-06] MEDS ORDERED: dilTIAZem HCL 120 MG CAPCR PO SCH (21:00)
[2021-07-06] MEDS ORDERED: CITALOPRAM 20 MG TAB PO SCH (21:00)
[2021-07-06] MEDS ORDERED: ROSUVASTATIN CALCIUM 20 MG TAB PO SCH (21:00)
[2021-07-07] MEDS: ACETAMINOPHEN 500 MG TAB PO SCH ×2 (01:48→08:48)
--- NOTE | 2021-07-07 06:56 | Electrocardiogram Report ---
Test Reason : Blood Pressure : / mmHG Vent. Rate : 067 BPM Atrial Rate : 063 BPM P-R Int : 000 ms QRS Dur : 088 ms QT Int : 460 ms P-R-T Axes : 000 002 017 degrees QTc Int : 486 ms Atrial fibrillation with premature ventricular or aberrantly conducted complexes Nonspecific ST and T wave abnormality Abnormal ECG When compared with ECG of 25-FEB-2021 05:04, Borderline criteria for Inferior infarct are no longer Present Confirmed by Bipin Ordonez ([id number]) on 07/07/2021 6:56:21 AM Referred By: REFERRED SELF Confirmed By:Bipin Ordonez
[2021-07-07 08:02] LABS: BUN Creatinine Ratio 16.6 (10-20); Calcium 8.5 mg/dl (8.5-10.1); Creatinine Clr Calc Pharmacy 44.3 ml/min; Est GFR (African American) 49.8 ml/min; Potassium 4.3 mmol/L (3.5-5.1)
[2021-07-07] MEDS: METOPROLOL TARTRATE 50 MG TAB PO SCH (08:49)
[2021-07-07] MEDS: ISOSORBIDE MONO EXTENDED REL 30 MG TABCR PO SCH (08:49)
[2021-07-07] MEDS: APIXABAN 2.5 MG TAB PO SCH (08:49)
[2021-07-07] MEDS: TAMSULOSIN HCL 0.4 MG CAP PO SCH (08:49)
[2021-07-07] MEDS: PANTOprazole 40 MG TAB PO SCH (08:49)
[2021-07-07] MEDS: CHOLECALCIFEROL 1,000 UNITS 25 MCG TAB PO SCH (08:49)
[2021-07-07] MEDS: CYANOCOBALAMIN (B-12) 100 MCG TABLET PO SCH (08:49)
--- NOTE | 2021-07-07 10:45 | Heart Failure Consultation ---
Date of Consultation July 07, 2021 Assessment & Plan (1) Chronic diastolic heart failure: (2) CAD (coronary artery disease), [place] coronary artery: (3) Hypertension: (4) Gastroenteritis: (5) Acute kidney injury: (6) Syncope: (7) Pulmonary hypertension: (8) Mitral regurgitation: (9) Permanent atrial fibrillation: HFpEF: Patient appears euvolemic on exam today. His hypoxia is somewhat chronic and stable. He has refused supplemental O2 at home in the past. EDUARDA likely in the setting of hypovolemia due to gastroenteritis. He was given fluids in the ED. Lasix currently held. Kidney function trending towards baseline. Would resume home dose of Lasix 20 mg daily on discharge. He takes an additional 20 mg PRN. Continue daily standing weights at home. Strict I&Os while admitted. Low sodium diet. Syncope: Etiology unclear- possibly orthostatic due to dehydration in the setting of gastroenteritis. Discussed outpatient cardiac monitoring. He is not opposed to this but does not want to pursue it at this time. Can further discuss at outpatient follow up. Pulmonary hypertension: Moderate to severe on recent echo. Previously had EVA which demonstrated moderate disease. Optimize volume status. Mitral regurgitation: Transesophageal echo demonstrated more moderate than severe regurgitation. Continue to monitor. Will likely repeat echo on an annual basis. Appears euvolemic and asymptomatic in this regard. CAD, [place] coronary artery: He is asymptomatic and denies angina. Medical therapy is recommended. Continue aspirin 81 mg daily. Continue beta-kenji, nitrate therapy, and high-intensity statin therapy. s/P CABG x 2: Patent CHOUDHARY to LAD and MITUL to RCA. Aortic regurgitation: Non severe. Follow over time. Atrial fibrillation: History of paroxysmal atrial fibrillation but now appears to be persistent. Continue Diltiazem. Continue Eliquis 5 mg BID. Disposition: Recommend outpatient follow up with the heart failure program- 07/13/21 at 11:00. History of Present Illness Attending Physician: Praneeth Marquez MD History of Present Illness Mr. Dhillon is a 81-year-old gentleman with a history significant for chronic diastolic CHF, CAD status post CABG x2 (approximately 1999 or 2000 at [facility] [place]), paroxysmal atrial fibrillation status post elective cardioversion in approximately 2016 or 2017, mitral regurgitation, pulmonary hypertension, hypertension, anemia, CKD, and dyslipidemia. Dr. 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 1. cardiac catheterization 11/06/1997 at [facility]: Proximal LAD 100%. Distal RCA 60%. Mid circumflex 30-40%. 2. CABG x2 1997 [facility] [place]: LAD and RCA reportedly bypassed. 3. DC cardioversion in : [facility]. Elective. Done for atrial fibrillation. 4. Echo 11/10/2018 normal LV systolic function. EF 55-60%. Severe left atrial dilation. mild right atrial dilation. Moderate AI. Mild to moderate MR. RVSP 30-40. 5. Nuclear stress 11/13/2018: Moderate sized area of base to mid inferolateral ischemia as well as a small area of distal anterolateral ischemia. EF 57%. Normal wall motion. 6. Cardiac catheterization 11/18/2018: Ostial LAD 60% with high diagonal vessel noted prior to proximal LAD 100%. Remainder of LAD fills via CHOUDHARY. Mid LAD 60- 70%. Mid circumflex 99% followed by 100%. Small OM1 proximal 98% (too small for intervention). Dominant RCA. Proximal RCA 90%. Mid RCA 100%. CHOUDHARY to LAD patent. MITUL to RCA patent. 7. Echo 03/19/2020: Mildly dilated LV with normal systolic function. EF 55- 60%. Hypokinesis of the inferolateral wall. Mild to moderate LVH. Mildly dilated RV with moderately reduced systolic function. Severe left atrial dilation. Severe MR. Mild AI. Mild to moderate TR. RVSP 80. 8. EVA 04/19/2020: Mildly dilated LV with normal systolic function. EF 55- 60%. No LVH. Mildly dilated RV with normal systolic function. Severe left atrial dilation. More moderate than severe, central MR. Mild AI. Normal RVSP. 9. Echo 10/04/20: Mildly dilated LV with normal function. EF 55-60%. No RWMA. Severe concentric LVH. Mildly dilated RV with reduced systolic function. Severe left atrial dilation. Moderate right atrial dilation. Mild aortic regurgitation. Moderate to severe MR. Moderate pulmonary hypertension. RVSP 53 mmHg. 10. 07/06/21 Echo: Normal LV size and systolic function. EF 55-60%. No RWMA. Moderate RV dilation with mildly reduced systolic function. Severe left atrial dilation. Moderate right atrial dilation. Mild AR. Moderate to severe MR. Moderate TR. Moderate to severe pulmonary hypertension. RVSP 55-60 mmHg. Patient is well known to the heart failure program. He was most recently evaluated on 05/06/21 which was virtual. He was stable at that time. He continued Lasix 20 mg daily with an additional 20 mg PRN. Weight was 207 lb. Patient presented to the ED following a syncopal episode on 07/06/21. Patient and his son have been dealing with recent GI issues including vomiting and diarrhea. He was hypoxic on admission at 84%. BUN and creatinine were increased. CXR with mild pulmonary congestion which is somewhat chronic. D dimer is elevated but he is anticoagulated. He received a 500 ml bolus in the ED. Lasix was held. Patient was evaluated this morning and appears to be feeling improved. He notes he hasn't been sleeping well at home for several days and did sleep well last night. He denies any shortness of breath or increased lower extremity edema. He was laying flat and appeared quite comfortable when I came in the room. He denies chest pain, cough, or palpitations. Allergies Allergy/AdvReac Type Severity Reaction Status Date / Time No Known Allergies Allergy Verified 07/06/21 03:10 Home Medications Medication Instructions Recorded Confirmed Type omeprazole magnesium 20 mg 20 mg PO QAM 12/30/17 07/06/21 History tablet,delayed release (Prilosec OTC) apixaban 5 mg tablet (Eliquis) 5 mg PO BID #60 tab 12/11/18 07/06/21 Rx nitroglycerin 0.4 mg sublingual 0.4 mg SUBLINGUAL Q5M PRN #1 btl 03/18/19 07/06/21 Rx tablet rosuvastatin 40 mg tablet 40 mg PO PM 09/17/19 07/06/21 History cyanocobalamin (vitamin B-12) 100 100 mcg PO QAM 10/15/19 07/06/21 History mcg tablet zolpidem 5 mg tablet (Ambien) 5 mg PO HS PRN tab 04/09/20 07/06/21 History isosorbide mononitrate 30 mg 30 mg PO QAM #30 tab 06/22/20 07/06/21 Rx tablet,extended release 24 hr furosemide 40 mg tablet 20 mg PO QAM #90 tab 09/16/20 07/06/21 Rx metoprolol tartrate 50 mg tablet 50 mg PO BID #180 tab 09/16/20 07/06/21 Rx acetaminophen 325 mg tablet 650 mg PO DIRECTED PRN 10/03/20 07/06/21 History (Tylenol) diltiazem HCl 120 mg 120 mg PO PM 02/25/21 07/06/21 History capsule,extended release 24 hr aspirin 325 mg tablet,delayed 325 mg PO DAILY 07/06/21 07/06/21 History release cholecalciferol (vitamin D3) 25 25 mcg PO DAILY 07/06/21 07/06/21 History mcg (1,000 unit) tablet (Vitamin D3) citalopram 40 mg tablet 20 mg PO DAILY 07/06/21 07/06/21 History diclofenac sodium 1 % topical gel 0 g TOPICAL TID PRN 07/06/21 07/06/21 History furosemide 40 mg tablet 40 mg PO DAILY PRN 07/06/21 07/06/21 History gabapentin 100 mg tablet 200 mg PO HS 07/06/21 07/06/21 History tamsulosin 0.4 mg capsule 0.4 mg PO DAILY 07/06/21 07/06/21 History Patient History Medical History (Updated 07/07/21 @ 11:52 by Julia Lobato PA-C) Acute alteration in mental status Aortic insufficiency BPH with obstruction/lower urinary tract symptoms CAD (coronary artery disease), [place] coronary artery Chronic diastolic heart failure Chronic kidney disease Confusion Fall History of anesthesia reaction CONVULSIONS POST OP QUICK COMING AWAKE FROM CABG SURG 20 YRS AGO. DENIES SEIZURES, SAYS HE 'WOKE UP TOO QUICKLY' AND THEY PUT HIM BACK UNDER Hyperlipidemia Hypertension Mitral regurgitation Permanent atrial fibrillation Surgical History H/O colonoscopy S/P CABG x 2 S/P TURP Family History Brother Family history of esophageal cancer Mother , age 73 of a stroke and [place] Myocardial infarction Stroke Father , age 31 in a gas explosion No problems noted. 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 Alert and oriented. Supplemental O2. HEENT: Anicteric sclera. Neck: Supple, no JVD Cardiac: Irregularly irregular, but rate controlled. Normal S1-S2. Grade II systolic murmur. No rubs, or gallops. Pulmonary: Normal respiratory effort. Clear to auscultation bilaterally without wheezes, rales, or rhonchi. Abdomen: Soft, nontender, nondistended, with normoactive bowel sounds. No bruits noted. Extremities: No significant lower extremity edema. No cyanosis. No lesions or skin changes. Psychiatric: Affect appears appropriate. Results & Data ([facility]) Vital Signs (Past 12 Hours) Vital Signs Temp Pulse Pulse Resp BP BP Pulse Ox 07/07/21 07:33 97.7 F 70 20 122/67 97 07/07/21 03:24 97.7 F 67 18 121/70 99 07/06/21 23:30 97.7 F 71 18 116/62 93 07/06/21 23:00 66 Coding Level of Care Code 05179 Initial Inpt Care Lvl 3 Diagnoses Chronic diastolic heart failure I50.32 CAD (coronary artery disease), [place] coronary artery I25.10 Associated angina: without angina [place] vs. transplanted heart: [place] heart Hypertension I10 Hypertension type: unspecified Gastroenteritis K52.9 Acute kidney injury N17.9 Syncope R55 Syncope type: unspecified Pulmonary hypertension I27.20 Mitral regurgitation I34.0 Permanent atrial fibrillation I48.21 (1) CAD (coronary artery disease), [place] coronary artery Associated angina: without angina [place] vs. transplanted heart: [place] heart Qualified Code(s): I25.10 - Atherosclerotic heart disease of [place] coronary artery without angina pectoris (2) Syncope Syncope type: unspecified Qualified Code(s): R55 - Syncope and collapse (3) Hypertension Hypertension type: unspecified Qualified Code(s): I10 - Essential (primary) hypertension
--- NOTE | 2021-07-07 11:36 | Discharge Summary ---
Date of Service July 07, 2021 Admission HPI Per Admitting Provider 81 yo M PMHx AFib on chronic anticoagulation with apixaban HTN, HLD, CKD, CAD, anxiety, , diastolic CHF presented to ER after 2 syncopal episodes that occurred at home admitted to telemetry for further evaluation of syncope . Patient reports he was slightly dehydrated earlier today and was having some episodes of weakness and vomiting. He had been monitoring his vital signs at home and noticed to been having episodes of hypotension and hypoxia. He notes that he and his family members have been suffering from a GI bug. Upon arrival in the emergency department routine labs were obtained CBC was notable for hemoglobin of 11.3 D-dimer elevated to 1150, serum chemistries demonstrating elevated creatinine to 1.93 baseline appears to be 1.5 glucose 134, troponin slightly elevated to 0.14, BNP 663, UA with 2+ protein. Chest x- ray was as interpreted by me notable for cardiomegaly, head CT was negative, CT C-spine was consistent with mild to level degenerative disc disease no acute fractures or traumatic subluxation ECG demonstrating A. fib with a rate of 67 and occasional PVCs. Given the concerning laboratory findings, syncopal episodes, and history of atrial fibrillation patient the hospital service was consulted for admission for further evaluation and monitoring of his syncopal episodes. Upon arrival to the room patient was lying in bed and tired. He HPI as described above with the following notable exceptions. He notes that his family has been suffering from a gastrointestinal illness recently he noted the other day he was experience nausea and vomiting. He states he has not been able to keep up with his p.o. fluid intake and has noticed his urine is gotten progressively darker. He states that the first episode of syncope occurred after a bowel movement when he ran downstairs to greet his sister at the door. He remembers the events leading up to the syncopal episode and the events immediately afterwards. During this episode he said he bit his tongue and his sister was concerned about the tongue bite. She did not describe any dazed or confused or other symptoms. The second syncopal episode happened at rest while he was sitting down. He notified his son and this prompted presentation in the emergency department. Of note patient [facility] Principal Diagnosis 1. Syncope- presumed secondary to dehydration 2. Dehydration- resolved 3. Gastroenteritis- resolved 4. Mild Acute Kidney Injury- secondary to dehydration and resolved 5. Elevated troponin-- likely supply/demand mismatch Discharge Exam General: Resting comfortably in his hospital bed. Does not appear ill or toxic. NAD. HEENT: Head is AT/NC. Buccal mucosa is moist and pink Neck: No JVD. Negative hepatojugular reflex Cardiac: Irregularly irregular without M/G/R Lungs: CTA without W/R/R Abdomen: Normoactive X4. Soft and nontender in all quadrants. Extremities: No peripheral clubbing cyanosis or edema. Vascular changes of the bilateral lower extremities noted Neuro: A&O X4. Cranial nerves II through XII are grossly intact. No focal neuro deficits Skin: Abrasions of the bilateral knees. Psych: Appropriate affect. Pleasant and cooperative Discharge Data Allergies Allergy/AdvReac Type Severity Reaction Status Date / Time No Known Allergies Allergy Verified 07/06/21 03:10 Consultations 07/06/21 05:07 ED Decision to Admit Stat 07/07/21 09:05 [facility] CHF Program Referral Routine Ordered Studies 07/06/21 01:26 CT cervical spine wo con Urgent IMPRESSION: 1. There is no evidence of fracture or subluxation involving the cervical spine. 2. Osteopenia and spondylotic change as above. 07/06/21 01:30 CT head/brain wo con Urgent Impression: No significant change compared to the prior study. No acute intracranial abnormality. Hospital Course (1) Syncope: Exact etiology unclear but had had viral gastroenteritis leading up to this presentation and had clinical evidence of dehydration. Likely contributing to his syncopal event - Had 2 agub-ch-sing syncopal events several hours apart leading up to this hospitalization. 1 occurred after walking down the steps, the other while sitting in a chair. Was feeling weak this entire day - has remained on a wire coiler showing atrial fibrillation with controlled ventricular rate (chronic for him) - No loss of bowel or bladder function. Patient did not appear postictal upon presentation. Not highly suspicious of seizure - No current weakness - no orthostatic hypotension - echo updated: no change from prior - although did have slightly elevated troponin, no EKG changes or cardiac symptoms - suspect all related to dehydration - recommended discharge with holter monitor or event monitor but he adamantly declines this as present and "will take this over with Cardiology in follow up" (2) Acute kidney injury: - patient with known CKD, stage III-b - Creatinine baseline 1.3-1.7 - presented this hospitalization with a creatinine of 1.9 - likely d/t viral gastroenteritis in combination with being on Lasix - lasix was held - given very gentle IV hydration - Renal functio improved back to baseline (1.5) - appears euvolemic. okay to resume Lasix tomorrow (3) Dehydration: - 2/2 Viral Gastroenteritis and resolved with gentle IV hydration and with holding Lasix (4) Elevated troponin: - presented with troponin of 0.14 - Does have a cardiac hx and following with Dr. Trinidad - FU troponin downtrended (0.07) - no acute EKG changes - Echocardiogram updated and unchanged from prior. no RWMA - last cardiac cath done 2018 - not highly suspicious that his vomiting and syncope were an atypical presentation of ACS mike given the fact that he has had multiple other family members with similar events (5) Gastroenteritis: On admission noted by a family member that his family has been suffering from GI symptoms. - received symptomatic mgmt (IVF, antiemetics, pepto-bismul) - currently, asympomatic (6) Elevated d-dimer: - not highly suspicious of PE as not tachycardia or hypoxic - in addition, on Eliquis - could have elevated ddimer given recent vomiting and supply/demand mismatch along with A/CKD - given low suspicion of PE and Acute on chronic renal impairment, did not pursue CTA (7) Permanent atrial fibrillation: - Rate controlled - Continue apixaban, metoprolol, and diltiazem - Reduce Eliquis dose to 2.5mg BID (age >/= 80 and creat >1.5) (8) Chronic kidney disease: - Mild EDUARDA on CKD with a variable baseline creat, last creat 1.78 in Jan 2021 - Likely exacerbated by GI losses associated with GE - lasix held as outlined above (9) Chronic diastolic heart failure: - appears volume contracted upon presentation. - lasix held with gently IV hydration given upfront - euvolemic at present - follows CHF clinic. Seen by Julia Mcmullen PA-C who agrees with resumption of Lasix as prior to hospitalization - PVC on imaging is not really changed from Jan 2021 chest xray - No recent weight gain, no LE edema - Echo updated and unchanged - Hypoxia is chronic, baseline 88-94% on room air but refuses home O2. 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 Marquez. D/C to home after seen and agreed upon by Dr. Marquez. Total Time Total Time Spent Total Time Spent (In Minutes): 30 Discharge Plan Discharge Items Patient Disposition: Home - Self-Care Reason For Visit: WEAK,DEHYDRATED,FAINTING Discharge Diagnosis: 1. Syncope- presumed secondary to dehydration 2. Dehydration- resolved 3. Gastroenteritis- resolved 4. Mild Acute Kidney Injury- secondary to dehydration and resolved 5. Elevated troponin Activity: Resume your previous activity Activity Comment: as tolerated Non-emergency contact: Primary Care Provider and Women Designer Call non-emergency contact if: you have any medication questions and your symptoms worsen Follow-up/Referrals: Meet Trinidad MD [Physician] - 07/25/21 1:30 pm Phil Hicks MD [Primary Care Provider] - 07/14/21 2:30 pm Julia Mcmullen PA-C [Physician [employer]] - 07/13/21 11:00 am Diet: Heart Healthy Addtl Attending Provider Instructions: - You presented to the hospital following a Syncopal Event (passing out). This occurred following a bout of vomiting/diarrhea (which was thought to be related to Viral Gastroenteritis) which was self limiting and has since resolved - Given the fluid loss (from the vomiting and diarrhea) in addition to your routine Lasix, it appeared as if your were slightly dehydrated (renal function was slightly worse than baseline). You renal function improved with slight IV hydration and holding your Lasix - You are stable for discharge to home with resumption in your Lasix - You were kept on a wire coiler during this hospitalization and no arrhythmia was noted; however, a home monitor was recommended to rule out cardiac cause of the passing out. You have declined this but reported that you will "think about it". I advise that you follow up with Cardiology and further discuss this. - In addition, your troponin (cardiac enzyme) was elevated ever so slightly. You do you not have chest pain or cardiac symptoms, your EKG shows no acute changes and your Echocardiogram (ultrasound of your heart) shows no evidence of regional wall motion abnormalities (and no change from prior). Suspect this elevated from was supply/demand mismatch given recent GI illness. Follow up with Cardiology. - Return to the ED for new or worsening symptoms Pending Studies at Discharge: No Stand-Alone Forms: My [facility] My Dentist, Smoking Cessation Medications and DC Order Prescriptions: Continued Eliquis 5 mg tablet 5 mg PO BID Qty: 60 RF: 2 isosorbide mononitrate 30 mg tablet extended release 24 hr 30 mg PO QAM Qty: 30 RF: 5 cyanocobalamin (vitamin B-12) 100 mcg tablet 100 mcg PO QAM RF: 0 rosuvastatin 40 mg tablet 40 mg PO PM RF: 0 zolpidem [Ambien] 5 mg tablet 5 mg PO HS PRN (Reason: Sleep) RF: 0 metoprolol tartrate 50 mg tablet 50 mg PO BID Qty: 180 RF: 3 furosemide 40 mg tablet 20 mg PO QAM Qty: 90 RF: 3 omeprazole magnesium [Prilosec OTC] 20 mg Tablet,Delayed Release (Dr/Ec) 20 mg PO QAM RF: 0 nitroglycerin 0.4 mg tablet, sublingual 0.4 mg sublingual Q5M PRN (Reason: chest pain) Qty: 1 RF: 0 acetaminophen [Tylenol] 325 mg Tablet 650 mg PO DIRECTED PRN (Reason: PAIN/FEVER) RF: 0 diltiazem HCl 120 mg capsule,extended release 24hr 120 mg PO PM RF: 0 furosemide 40 mg tablet 40 mg PO DAILY PRN (Reason: Edema) RF: 0 citalopram 40 mg Tablet 20 mg PO DAILY RF: 0 aspirin 325 mg Tablet,Delayed Release (Dr/Ec) 325 mg PO DAILY RF: 0 tamsulosin 0.4 mg capsule 0.4 mg PO DAILY RF: 0 gabapentin 100 mg Tablet 200 mg PO HS RF: 0 cholecalciferol (vitamin D3) [Vitamin D3] 25 mcg (1,000 unit) Tablet 25 mcg PO DAILY RF: 0 diclofenac sodium 1 % Gel 0 g TOPICAL TID PRN (Reason: Pain) RF: 0 Discharge Orders: Discharge Order (Routine); Ordered 07/07/21 Ordered By: Julia Lobato Admission Data Admit Date/Time: 07/06/21 05:49 Attending Provider: Praneeth Marquez Admit Provider: Bong Hope I. Primary Care Provider: Phil Hicks Other Providers: Praneeth Marquez ; [facility] ; Julia Mcmullen Other Interventions: Discharge Summary Assessment (RN) Last Done: 07/07/21 11:00 Supervising Physician Co-Signing Physician Notes I supervised Julia Lobato PA-C on the care of this patient. I interviewed and examined the patient independently of her. The plan is as written in her note except for any following changes/exceptions: None No issuues today. He feels well. No further syncope or vomiting. He will follow up with Julia Mcmullen next week and consider Holter monitor at that time. Coding Level of Care Code 58104 OBS Care - Discharge Diagnoses Syncope R55 Permanent atrial fibrillation I48.21 Gastroenteritis K52.9 Chronic kidney disease N18.9 Chronic diastolic heart failure I50.32 CAD (coronary artery disease), [place] coronary artery I25.10 Associated angina: without angina [place] vs. transplanted heart: [place] heart Hypertension I10 Hypertension type: unspecified Hyperlipidemia E78.5 Hyperlipidemia type: unspecified Anxiety F41.9 Acute kidney injury N17.9 Elevated troponin R77.8 Dehydration E86.0 Elevated d-dimer R79.89
[2021-07-07] MEDS ORDERED: CITALOPRAM 20 MG TAB PO SCH (21:00)
== END 2021-07-07 12:45 | disposition home or self-care (01) ==
LOC: ED 01:01 → 1E 01:01 → SUATTDRO 05:49 → 1E 07:40 → 2S 18:41

== ENCOUNTER 2021-07-21 11:56 | Inpatient (IN) ==
--- NOTE | 2021-07-21 12:17 | Emergency Department Note ---
Impression & Plan Hypoxia, SOB (shortness of breath), Weakness, Fluid overload ED Provider Note NAME: SHARON HELMS AGE: 81 SEX: M : 1940 ARRIVES VIA: Walk-In INFORMANT: [Patient] ED PROVIDER(S): [Joel Mix MD] CHIEF COMPLAINT: Shortness of breath HISTORY OF PRESENT ILLNESS: The patient is an 81-year-old male who presents to the ER with shortness of breath. The patient has felt like he has worsened in the last 6 days. The patient was recently in our hospital for syncope. The patient saw the heart failure clinic as an outpatient about 6 days ago and was felt to be euvolemic. As per the patient, since that visit at the heart failure clinic, he has become more and more short of breath. He has noticed some swelling of his abdomen. He feels weak, he is tired. He is short of breath with any exertion. There has been a slight cough. He has a hard time sleeping because of his dyspnea. He does not typically wear oxygen at home. He is on diuretics and is using them as prescribed. The patient did take an at home COVID test this morning, it was negative. REVIEW OF SYSTEMS: See HPI for pertinent positives and negatives. A total of ten systems were reviewed and were otherwise negative. PMHx/PSHx: See Below SOCIAL HISTORY: See Below. PHYSICAL EXAM: GENERAL: Patient is in mild respiratory distress. Appears short of breath. HEENT: No acute trauma, normocephalic atraumatic, mucous membranes moist, no nasal congestion, no scleral icterus. NECK: No stridor, no adenopathy, no meningismus, trachea is midline. LUNGS: Clear to auscultation bilaterally, no wheeze, no rhonchi, breath sounds equal. Mild respiratory distress noted. Increased respiratory rate, speaks in shorter sentences. HEART: Without murmurs gallops or rubs, slightly irregular rhythm. Normal rate. ABDOMEN: Soft, nontender, bowel sounds positive, no hernias, no peritonitis. Abdominal distention noted. EXTREMITIES: No cyanosis, mild bilateral pedal edema, full range of motion of all the joints without pain or difficulty, no signs for acute trauma. NEUROLOGIC: Oriented x 3, no acute motor or sensory deficits, no focal weakness. SKIN: No rash, no jaundice, no diaphoresis. DIFFERENTIAL DIAGNOSIS: Reactive airway disease, COVID-19, influenza, pneumonia, pneumothorax, COPD, CHF, infection, cardiac ischemia, pulmonary embolism, bronchitis, musculoskeletal, gastrointestinal, as well as other pathologies. EMERGENCY DEPARTMENT COURSE/PROCEDURES: ECG: Indication was shortness of breath. The ECG shows atrial fibrillation with a rate of 63. There is diffuse nonspecific ST change. No PVCs. No ST elevation. The QTc is 499. Compared to an ECG from 06 July 2021, PVCs are no longer present. Continuous Cardiac Monitoring: An order was placed for continuous cardiac monitoring. The monitor shows a rate of 78 with atrial fibrillation. MEDICAL DECISION MAKING: There is no leukocytosis. A mild anemia was noted however, the patient has a history of the same. There was a normal platelet count. INR slightly elevated at 1.4 likely from his Eliquis use. There was renal insufficiency noted but, this is baseline. No electrolyte abnormality in need of emergent correction. BNP was elevated consistent with CHF/fluid overload. Chest x-ray shows cardiome araseli, no pneumonia. ECG shows atrial fibrillation, no obvious ischemia. Cardiac troponin is slightly elevated, this elevation could be consistent with cardiac injury or strain. COVID, influenza and RSV tests returned negative. The patient presented hypoxic and short of breath. He was visibly short of breath. He was placed on nasal cannula oxygen. He was given IV Lasix, 60 mg. The patient is hypoxic, short of breath, weak. He will require a hospital stay for his dyspnea, I suspect the dyspnea is from fluid overload/CHF. I spoke with the patient, I talked to case management. The on-call hospitalist was consulted. Past Med/Surg History Medical History (Updated 07/21/21 @ 14:59 by Joel Mix MD) Acute alteration in mental status Aortic insufficiency BPH with obstruction/lower urinary tract symptoms CAD (coronary artery disease), hoopa coronary artery Chronic diastolic heart failure Chronic kidney disease Confusion Fall History of anesthesia reaction CONVULSIONS POST OP QUICK COMING AWAKE FROM CABG SURG 20 YRS AGO. DENIES SEIZURES, SAYS HE 'WOKE UP TOO QUICKLY' AND THEY PUT HIM BACK UNDER Hyperlipidemia Hypertension Mitral regurgitation Permanent atrial fibrillation Surgical History H/O colonoscopy S/P CABG x 2 S/P TURP Family History Brother Family history of esophageal cancer Mother , age 73 of a stroke and [place] Myocardial infarction Stroke Father , age 31 in a gas explosion No problems noted. 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 [employer] Feels Safe at Home: Yes Assistive Devices: None Allergies Allergies Allergy/AdvReac Type Severity Reaction Status Date / Time No Known Allergies Allergy Verified 07/21/21 14:27 Home Meds Home Medications Medication Instructions Recorded Confirmed omeprazole magnesium 20 mg 20 mg PO QAM 12/30/17 07/13/21 tablet,delayed release (Prilosec OTC) rosuvastatin 40 mg tablet 40 mg PO PM 09/17/19 07/13/21 cyanocobalamin (vitamin B-12) 100 100 mcg PO QAM 10/15/19 07/21/21 mcg tablet acetaminophen 325 mg tablet 650 mg PO DIRECTED PRN 10/03/20 07/21/21 (Tylenol) diltiazem HCl 120 mg 120 mg PO PM 02/25/21 07/21/21 capsule,extended release 24 hr aspirin 325 mg tablet,delayed 325 mg PO DAILY 07/06/21 07/21/21 release cholecalciferol (vitamin D3) 25 25 mcg PO DAILY 07/06/21 07/21/21 mcg (1,000 unit) tablet (Vitamin D3) citalopram 40 mg tablet 20 mg PO DAILY 07/06/21 07/21/21 diclofenac sodium 1 % topical gel 0 g TOPICAL TID PRN 07/06/21 07/21/21 tamsulosin 0.4 mg capsule 0.4 mg PO DAILY 07/06/21 07/13/21 apixaban 5 mg tablet (Eliquis) 2.5 mg PO BID tab 07/13/21 07/21/21 Previous Rx's Medication Instructions Recorded nitroglycerin 0.4 mg sublingual 0.4 mg SUBLINGUAL Q5M PRN #1 btl 03/18/19 tablet isosorbide mononitrate 30 mg 30 mg PO QAM #30 tab 06/22/20 tablet,extended release 24 hr metoprolol tartrate 50 mg tablet 50 mg PO BID #180 tab 09/16/20 furosemide 40 mg tablet 20 mg PO QAM #90 tab 07/14/21 Results & Data (ED) Vital Signs Vital Signs - 24 hr 07/21/21 12:00 07/21/21 12:12 07/21/21 12:40 Temperature 36.6 C Temperature Source Temporal Artery Scan Pulse Rate 70 78 Pulse Rhythm Regular Respiratory Rate 22 22 Respiratory Effort / Characteristics Non-Labored Spontaneous Labored Short of Breath SOB on Exertion Respiratory Depth Normal Deep Respiratory Pattern Regular Regular Blood Pressure 144/72 H Blood Pressure Mean 96 Blood Pressure Position Sitting Pulse Oximetry 88 L 94 Oxygen Delivery Method Room Air Nasal Cannula Room Air Oxygen Flow Rate 2 Sepsis Recent Fever Within 48 Hours No Sepsis New/Unexplained Change in Mental Status N/A Sepsis Action Taken by Nursing No Action Required Oxygen Flow Rate - Titration 2 Pulse Oximetry Post Tiitration 94 07/21/21 13:09 Temperature Temperature Source Pulse Rate 64 Pulse Rhythm Respiratory Rate 22 Respiratory Effort / Characteristics Respiratory Depth Respiratory Pattern Blood Pressure 124/73 Blood Pressure Mean 90 Blood Pressure Position Pulse Oximetry 89 L Oxygen Delivery Method Nasal Cannula Oxygen Flow Rate 2 Sepsis Recent Fever Within 48 Hours Sepsis New/Unexplained Change in Mental Status Sepsis Action Taken by Nursing Oxygen Flow Rate - Titration Pulse Oximetry Post Tiitration Home Medications Current Medication List: was personally reviewed by me Laboratory Data Attestation: I reviewed the patient's lab results. Result diagrams: 07/21/21 12:31 07/21/21 12:31 Lab Results 07/21/21 07/21/21 07/21/21 Range/Units 12:30 12:31 12:31 WBC (4.8-10.8) K/uL RBC (4.7-6.1) M/uL Hgb (14.0-18.0) g/dL Hct (42-52) % MCV (80-100) fL MCH (25-34) pg MCHC (32-36) g/dL RDW Std Deviation (36.4-46.3) fL RDW Coeff of Marilynn (11.5-14.5) % Plt Count (130-400) K/uL MPV (7.4-10.4) fL Immature Gran % (Auto) % Neut % (Auto) % Lymph % (Auto) % [place] % (Auto) % Eos % (Auto) % Baso % (Auto) % Neut # (Auto) (1.4-6.5) K/uL Lymph # (Auto) (1.2-3.4) K/uL [place] # (Auto) (0.11-0.59) K/uL Eos # (Auto) (0-0.5) K/uL Baso # (Auto) (0-0.2) K/uL Immature Gran # (Auto) (0.00-0.02) K/uL PT (9.0-12.0) Seconds INR (0.9-1.1) APTT (21.0-31.0) Seconds PTT Ratio Sodium (136-145) mmol/L Potassium (3.5-5.1) mmol/L Chloride (98-107) mmol/L Carbon Dioxide (21-32) mmol/L Anion Gap (3-11) BUN (6-23) mg/dl Creatinine (0.6-1.4) mg/dl Est Cr Clr Drug Dosing ml/min Est GFR ( Amer) ml/min Est GFR (Non-Af Amer) ml/min BUN/Creatinine Ratio (10-20) Glucose (70-99(Fasting)) mg/dl Calcium (8.5-10.1) mg/dl Magnesium (1.7-2.4) mg/dl Total Bilirubin (0.2-1.0) mg/dl AST (13-39) U/L ALT (7-52) U/L Alkaline Phosphatase (34-104) U/L Troponin I High Sens 25.0 H (0-20) pg/ml B-Natriuretic Peptide 519 H (0-100) pg/ml Total Protein (6.0-8.3) gm/dl Albumin (3.4-5.0) gm/dl Globulin (2.5-4.0) gm/dl Albumin/Globulin Ratio (0.9-2) SARS-CoV-2 (PCR) NEGATIVE (Negative) Influenza Type A (PCR) Negative (Neg) Influenza Type B (PCR) Negative (Neg) RSV (RT-PCR) Negative (Neg) 07/21/21 07/21/21 07/21/21 Range/Units 12:31 12:31 12:31 WBC 7.85 (4.8-10.8) K/uL RBC 3.43 L (4.7-6.1) M/uL Hgb 11.9 L (14.0-18.0) g/dL Hct 37.4 L (42-52) % MCV 109.0 H (80-100) fL MCH 34.7 H (25-34) pg MCHC 31.8 L (32-36) g/dL RDW Std Deviation 62.0 H (36.4-46.3) fL RDW Coeff of Marilynn 15.6 H (11.5-14.5) % Plt Count 265 (130-400) K/uL MPV 9.6 (7.4-10.4) fL Immature Gran % (Auto) 0.1 % Neut % (Auto) 77.9 % Lymph % (Auto) 7.4 % [place] % (Auto) 12.9 % Eos % (Auto) 1.3 % Baso % (Auto) 0.4 % Neut # (Auto) 6.12 (1.4-6.5) K/uL Lymph # (Auto) 0.58 L (1.2-3.4) K/uL [place] # (Auto) 1.01 H (0.11-0.59) K/uL Eos # (Auto) 0.10 (0-0.5) K/uL Baso # (Auto) 0.03 (0-0.2) K/uL Immature Gran # (Auto) 0.01 (0.00-0.02) K/uL PT 14.6 H (9.0-12.0) Seconds INR 1.4 H (0.9-1.1) APTT 29.1 (21.0-31.0) Seconds PTT Ratio 1.1 Sodium 140 (136-145) mmol/L Potassium 4.0 (3.5-5.1) mmol/L Chloride 103 (98-107) mmol/L Carbon Dioxide 29 (21-32) mmol/L Anion Gap 8 (3-11) BUN 40 H (6-23) mg/dl Creatinine 1.77 H (0.6-1.4) mg/dl Est Cr Clr Drug Dosing 38.2 ml/min Est GFR ( Amer) 41.1 ml/min Est GFR (Non-Af Amer) 35.5 ml/min BUN/Creatinine Ratio 22.6 H (10-20) Glucose 118 H (70-99(Fasting)) mg/dl Calcium 8.8 (8.5-10.1) mg/dl Magnesium 2.6 H (1.7-2.4) mg/dl Total Bilirubin 0.7 (0.2-1.0) mg/dl AST 22 (13-39) U/L ALT 22 (7-52) U/L Alkaline Phosphatase 93 (34-104) U/L Troponin I High Sens (0-20) pg/ml B-Natriuretic Peptide (0-100) pg/ml Total Protein 7.3 (6.0-8.3) gm/dl Albumin 4.1 (3.4-5.0) gm/dl Globulin 3.2 (2.5-4.0) gm/dl Albumin/Globulin Ratio 1.3 (0.9-2) SARS-CoV-2 (PCR) (Negative) Influenza Type A (PCR) (Neg) Influenza Type B (PCR) (Neg) RSV (RT-PCR) (Neg) Administered Medications Discontinued Medications Furosemide (Furosemide 40 Mg/4 Ml Vial) 60 mg IV NOW STA Stop: 07/21/21 13:37 Last Admin: 07/21/21 13:54 Dose: 60 mg Documented by: [id number] Imaging Data Radiologist's Impression: Chest X-Ray 07/21/21 12:11 XR chest 1V portable CLINICAL HISTORY: Dyspnea TECHNIQUE: Single frontal radiograph of the chest was obtained. Comparison: Comparison is made to chest radiographs 07/06/2021 FINDINGS: Median sternotomy wires are unchanged including fractured third wire. Cardiomegaly is noted. The lungs are clear. No evidence of pleural effusion or pneumothorax. IMPRESSION: No acute chest disease. ACT 112: Negative or not required by law. Electronically signed by: Jason Braden M.D. 07/21/2021 1:51 PM Discharge Plan Visit Data Chief Complaint: Shortness of Breath/Dyspnea Stated Complaint: SHORTNESS OF BREATH, WEAKNESS ED Provider: Joel Mix Discharge Problem: Hypoxia, SOB (shortness of breath), Weakness, Fluid overload Patient Disposition: Admitted As Inpatient Condition: Fair Forms Stand Alone Forms: [facility] Prescriptions Prescriptions: No Action furosemide 40 mg tablet 20 mg PO QAM Qty: 90 RF: 3 Eliquis 5 mg tablet 2.5 mg PO BID RF: 0 isosorbide mononitrate 30 mg tablet extended release 24 hr 30 mg PO QAM Qty: 30 RF: 5 cyanocobalamin (vitamin B-12) 100 mcg tablet 100 mcg PO QAM RF: 0 rosuvastatin 40 mg tablet 40 mg PO PM RF: 0 metoprolol tartrate 50 mg tablet 50 mg PO BID Qty: 180 RF: 3 omeprazole magnesium [Prilosec OTC] 20 mg Tablet,Delayed Release (Dr/Ec) 20 mg PO QAM RF: 0 nitroglycerin 0.4 mg tablet, sublingual 0.4 mg sublingual Q5M PRN (Reason: chest pain) Qty: 1 RF: 0 acetaminophen [Tylenol] 325 mg Tablet 650 mg PO DIRECTED PRN (Reason: PAIN/FEVER) RF: 0 diltiazem HCl 120 mg capsule,extended release 24hr 120 mg PO PM RF: 0 citalopram 40 mg Tablet 20 mg PO DAILY RF: 0 aspirin 325 mg Tablet,Delayed Release (Dr/Ec) 325 mg PO DAILY RF: 0 tamsulosin 0.4 mg capsule 0.4 mg PO DAILY RF: 0 cholecalciferol (vitamin D3) [Vitamin D3] 25 mcg (1,000 unit) Tablet 25 mcg PO DAILY RF: 0 diclofenac sodium 1 % Gel 0 g TOPICAL TID PRN (Reason: Pain) RF: 0 Referrals Referrals: Phil Hicks MD [Primary Care Provider] -
[2021-07-21 12:49] LABS: Basophils # (auto) 0.03 K/uL (0-0.2); Basophils % (auto) 0.4 %; Eosinophils % (auto) 1.3 %; Hematocrit (blood only) 37.4 % (42-52); Hemoglobin 11.9 g/dL (14.0-18.0); Immature Granulocytes # (auto) 0.01 K/uL (0.00-0.02); Immature Granulocytes % (auto) 0.1 %; Lymphocytes # (auto) 0.58 K/uL (1.2-3.4); Lymphocytes % (auto) 7.4 %; Mean Corpuscular Hemoglobin 34.7 pg (25-34); Mean Corpuscular Hgb Conc 31.8 g/dL (32-36); Mean Platelet Volume 9.6 fL (7.4-10.4); Monocytes # (auto) 1.01 K/uL (0.11-0.59); Monocytes % (auto) 12.9 %; Neutrophils # (auto) 6.12 K/uL (1.4-6.5); Neutrophils % (auto) 77.9 %; Platelet Count 265 K/uL (130-400); RDW Coefficient of Variation 15.6 % (11.5-14.5); Red Blood Count 3.43 M/uL (4.7-6.1); White Blood Count 7.85 K/uL (4.8-10.8)
[2021-07-21 13:04] LABS: INR 1.4 (0.9-1.1); Partial Thromboplastin Ratio 1.1; Partial Thromboplastin Time 29.1 Seconds (21.0-31.0); Prothrombin Time 14.6 Seconds (9.0-12.0)
[2021-07-21 13:18] LABS: Albumin Globulin Ratio 1.3 (0.9-2); Albumin Level 4.1 gm/dl (3.4-5.0); BUN Creatinine Ratio 22.6 (10-20); Bilirubin,Total 0.7 mg/dl (0.2-1.0); Calcium 8.8 mg/dl (8.5-10.1); Creatinine Clr Calc Pharmacy 38.2 ml/min; Est GFR (African American) 41.1 ml/min; Est GFR (Non-African American) 35.5 ml/min; Globulin 3.2 gm/dl (2.5-4.0); Magnesium 2.6 mg/dl (1.7-2.4); Total Protein 7.3 gm/dl (6.0-8.3)
[2021-07-21] MEDS ORDERED: FUROSEMIDE 40 MG/4 ML VIAL IV STA (13:36)
--- NOTE | 2021-07-21 13:52 | XRay Report ---
XR chest 1V portable CLINICAL HISTORY: Dyspnea TECHNIQUE: Single frontal radiograph of the chest was obtained. Comparison: Comparison is made to chest radiographs 07/06/2021 FINDINGS: Median sternotomy wires are unchanged including fractured third wire. Cardiomegaly is noted. The lung s are clear. No evidence of pleural effusion or pneumothorax. IMPRESSION: No acute chest disease. ACT 112: Negative or not required by law. Electronically signed by: Jason Braden M.D. 07/21/2021 1:51 PM
[2021-07-21 13:53] LABS: Appearance Urine Clear (Clear); Bacteria Urine Automated Negative (Negative); Bilirubin Urine Negative (Negative); Blood Urine Trace (Negative); Color Urine Yellow; Glucose Urine UA Negative (Negative); Ketones Urine Negative (Negative); Leukocyte Esterase Urine Negative (Negative); Nitrite Urine Negative (Negative); Protein Urine 1+ (Negative); RBC Urine Automated 0-4 /hpf (0-4); Specific Gravity Urine 1.013 (1.000-1.030); Urobilinogen Urine Negative (Negative)
[2021-07-21 14:42] LABS: Influenza A virus by PCR Negative (Neg); Influenza B virus by PCR Negative (Neg); RSV by PCR Negative (Neg); SARS CoV2 RNA(COVID-19) InHosp NEGATIVE (Negative)
[2021-07-21 15:15] LABS: Allen Test POS (Pos); Base Excess ABG 1.1 mEq/L (-9-1.8); HCO3 ABG 26 mmol/L (19-24); Oxygen Saturation ABG 93.2 % (90-95); PCO2 ABG 41 mmHg (35-46); PO2 ABG 68 mmHg (80-95); pH ABG 7.42 (7.35-7.45)
--- NOTE | 2021-07-21 15:18 | History & Physical Report ---
Date of Service July 21, 2021 Assessment & Plan (1) Hypoxia: Plan: Hypoxia with dyspnea - COVID and Influenza are negative and no evidence of bacterial infection - Patient does not appear systemically overloaded, will diurese overnight with additional 40mg Lasix IV - He has notable MR and AI- had recent ECHO done 07/22 and had a EVA in the past to better evaluate his MR and was classified as mild- remains with mild to moderate MR and AR/AI - He is noted to have elevated RVSP as well as noting mild tracheal stenosis from CT scan of the chest done 02/20- with a history of intubation - He has not had a sleep study performed and/or PFTs- his HCO3 is chronically > 27 - could consider repeating CT scan and evaluate tracheal stenosis- would favor this vs. bronchoscopy if symptoms persist following diuresis - ABG- 7.42/41// - PE unlikely as he is anticoagulated and compliant and without tachypnea- oxygenation also increased with minimal o2 support - Not severely anemic - stable at 11.9 remains macrocytic (2) Chronic kidney disease: Plan: Stable continue to avoid further nephrotoxic medications - follow with diuresing (3) Chronic diastolic heart failure: Plan: EF 55-60% on most recent ECHO (4) Aortic insufficiency: Plan: Follow with [facility] per cardiology - noted as mild with recent ECHO 07/06/21 (5) CAD (coronary artery disease), yuhaaviatam coronary artery: Plan: With CABG x2 1997 - Continue with BB, Statin, Isosorbide, ASA - remains with out anginal symptoms (6) Hypertension: Plan: As above (7) BPH with obstruction/lower urinary tract symptoms: Plan: Continue Tamsulosin (8) Hyperlipidemia: Plan: Continue with statin (9) Elevated troponin: Plan: HScTNI 25 at 1200 reflex is pending - again without anginal symptoms- this is most consistent with type II demand from underlying heart failure and hypoxia History of Present Illness Primary Care Provider: Phil Hicks MD 81 YOM with medical history of: CAD with bypass surgery x2 1997, HTN, HFpEF, Afib (on Apixaban dose adjusted), AI, MR, macrocytic anemia, depression. Patient comes to the EMD today for increase in dyspnea and feeling of increase edema around his waist line. This has been ongoing for the 3-5 days. He is on titratable Lasix dosing at home and increased his dose of Lasix to 20mg PO for the last 2 days with not much notice in his breathing. The patient states that he is able to go up 14 steps daily without any chest pain, but has noticed that he is breathing heavier at the top. He endorses continued fatigue and decrease sleeping at night. He is accompanied by his son whom he lives with. His son helps assist him with his diet and salt intake and believe he is doing a good job with this. He has had his medications adjusted over the past month as he has been having episodes of passing out. He does follow with the HF clinic and was evaluated there last week. He comes in today mildly hypoxic in the high 80s, his COVID test and Influenza test are negative. He had routine labs to include HScTNI and BNP as well as CXR done. He was given 60mg IV lasix by the [facility] and hospitalist service was consulted for admission. The patient is normally not on oxygen at home. His CXR is not overtly volume overloaded, his BNP is 519, which is the least it has been on his previous admission. His HScTNI is 25. He did not call the HF clinic today prior to comming to the [facility]. The patient is dyspneic when lying flat. He is on anticoagulation with apixaban 2.5mg. Will obtain ABG evaluate his PaO2 and PaCO2. He has not had any history of underlying pulmonary disease that he knows of and is not on CPAP/BiPAP at home. Patient will be admitted to medical telemetry, will give Lasix 40mg IV tonight, follow his oxygenation and trend CHANEL through the PM. Will consult HF team for consistency. Allergies Allergy/AdvReac Type Severity Reaction Status Date / Time No Known Allergies Allergy Verified 07/21/21 14:27 Home Medications Medication Instructions Recorded Confirmed Type omeprazole magnesium 20 mg 20 mg PO QAM 12/30/17 07/21/21 History tablet,delayed release (Prilosec OTC) nitroglycerin 0.4 mg sublingual 0.4 mg SUBLINGUAL Q5M PRN #1 btl 03/18/19 07/21/21 Rx tablet rosuvastatin 40 mg tablet 40 mg PO PM 09/17/19 07/21/21 History cyanocobalamin (vitamin B-12) 100 100 mcg PO QAM 10/15/19 07/21/21 History mcg tablet isosorbide mononitrate 30 mg 30 mg PO QAM #30 tab 06/22/20 07/21/21 Rx tablet,extended release 24 hr metoprolol tartrate 50 mg tablet 50 mg PO BID #180 tab 09/16/20 07/21/21 Rx acetaminophen 325 mg tablet 650 mg PO DIRECTED PRN 10/03/20 07/21/21 History (Tylenol) diltiazem HCl 120 mg 120 mg PO PM 02/25/21 07/21/21 History capsule,extended release 24 hr aspirin 325 mg tablet,delayed 325 mg PO DAILY 07/06/21 07/21/21 History release cholecalciferol (vitamin D3) 25 25 mcg PO DAILY 07/06/21 07/21/21 History mcg (1,000 unit) tablet (Vitamin D3) citalopram 40 mg tablet 20 mg PO DAILY 07/06/21 07/21/21 History diclofenac sodium 1 % topical gel 0 g TOPICAL TID PRN 07/06/21 07/21/21 History tamsulosin 0.4 mg capsule 0.4 mg PO DAILY 07/06/21 07/21/21 History apixaban 5 mg tablet (Eliquis) 2.5 mg PO BID tab 07/13/21 07/21/21 History furosemide 40 mg tablet 20 mg PO QAM #90 tab 07/14/21 07/21/21 Rx Past Med/Surg History Medical History Acute alteration in mental status Aortic insufficiency BPH with obstruction/lower urinary tract symptoms CAD (coronary artery disease), [place]aviat[place] coronary artery Chronic diastolic heart failure Chronic kidney disease Confusion Fall History of anesthesia reaction CONVULSIONS POST OP QUICK COMING AWAKE FROM CABG SURG 20 YRS AGO. DENIES SEIZURES, SAYS HE 'WOKE UP TOO QUICKLY' AND THEY PUT HIM BACK UNDER Hyperlipidemia Hypertension Mitral regurgitation Permanent atrial fibrillation Surgical History H/O colonoscopy S/P CABG x 2 S/P TURP Family History Brother Family history of esophageal cancer Mother , age 73 of a stroke and [place] Myocardial infarction Stroke Father , age 31 in a gas explosion No problems noted. 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 [employer] Other Information That Helps Us Care for You: No Feels Safe at Home: Yes Safety Concerns: Feels Safe At This Time Assistive Devices: Denture - Upper and Glasses Review of Systems Review of Systems: REVIEW OF SYSTEMS: Constitutional: No fever, sweats or chills Eyes: No diplopia, no worsening or blurred vision ENT: normal hearing, no trouble swallowing Respiratory: (+) dyspnea at rest or on exertion, No cough, sputum, Cardiovascular: No chest pain, tightness or palpitations Abdomen: (+) increase abdominal edema, No pain, nausea, vomiting, diarrhea or constipation Musculoskeletal: No joint pain, calf pain, swelling Neurologic: No weakness, numbness/tingling, or balance problems Psychiatric: No anxiety or depression Skin: No rash or itch Physical Exam Physical Exam: PHYSICAL EXAM: General: awake, alert, no apparent distress Head: Normocephalic, atraumatic ENT: PERRL, EOMI, no pharyngeal exudate, mucous membranes moist Neuro: AAO x 3, speech clear and appropriate, strength intact bilaterally 5/5, sensation intact and equal all extremities and dermatomes, no pronator drift Chest: equal rise and fall of the chest, abdominal breathing, no heaves or thrills, scattered crackles, on 2LNC Cardiac: Regular rate and rhythm, telemetry reviewed, skin warm dry, cap refill <3 seconds, peripheral pulses +2 no JVD, Grade II systolic murmur, trace lower extremity edema, mild abdominal distention GI: NABS x 4 quadrants, soft, nontender to palpation, no rebound, guarding or tenderness : Spontaneously voiding, no pain, no CVA tenderness, Extremities: Normal inspection, no peripheral edema or erythema, calfs nontender to palpation Psych: Normal mood and affect Skin: no rash or erythema Results & Data Results & Data ([facility]) Vital Signs (Past 12 Hours) Vital Signs Temp Pulse Resp BP Pulse Ox 07/21/21 13:09 64 22 124/73 89 L 07/21/21 12:12 78 22 94 07/21/21 12:00 36.6 C 70 22 144/72 H 88 L Laboratory Results Abnormal lab results 07/21/21 07/21/21 07/21/21 Range/Units 12:31 12:31 12:31 RBC 3.43 L (4.7-6.1) M/uL Hgb 11.9 L (14.0-18.0) g/dL Hct 37.4 L (42-52) % MCV 109.0 H (80-100) fL MCH 34.7 H (25-34) pg MCHC 31.8 L (32-36) g/dL RDW Std Deviation 62.0 H (36.4-46.3) fL RDW Coeff of Marilynn 15.6 H (11.5-14.5) % Lymph # (Auto) 0.58 L (1.2-3.4) K/uL [place] # (Auto) 1.01 H (0.11-0.59) K/uL PT (9.0-12.0) Seconds INR (0.9-1.1) BUN (6-23) mg/dl Creatinine (0.6-1.4) mg/dl BUN/Creatinine Ratio (10-20) Glucose (70-99(Fasting)) mg/dl Magnesium (1.7-2.4) mg/dl Troponin I High Sens 25.0 H (0-20) pg/ml B-Natriuretic Peptide 519 H (0-100) pg/ml 07/21/21 07/21/21 Range/Units 12:31 12:31 RBC (4.7-6.1) M/uL Hgb (14.0-18.0) g/dL Hct (42-52) % MCV (80-100) fL MCH (25-34) pg MCHC (32-36) g/dL RDW Std Deviation (36.4-46.3) fL RDW Coeff of Marilynn (11.5-14.5) % Lymph # (Auto) (1.2-3.4) K/uL [place] # (Auto) (0.11-0.59) K/uL PT 14.6 H (9.0-12.0) Seconds INR 1.4 H (0.9-1.1) BUN 40 H (6-23) mg/dl Creatinine 1.77 H (0.6-1.4) mg/dl BUN/Creatinine Ratio 22.6 H (10-20) Glucose 118 H (70-99(Fasting)) mg/dl Magnesium 2.6 H (1.7-2.4) mg/dl Troponin I High Sens (0-20) pg/ml B-Natriuretic Peptide (0-100) pg/ml Diagnostic Findings Chest X-Ray 07/21/21 12:11 XR chest 1V portable CLINICAL HISTORY: Dyspnea TECHNIQUE: Single frontal radiograph of the chest was obtained. Comparison: Comparison is made to chest radiographs 07/06/2021 FINDINGS: Median sternotomy wires are unchanged including fractured third wire. Cardiomegaly is noted. The lungs are clear. No evidence of pleural effusion or pneumothorax. IMPRESSION: No acute chest disease. ACT 112: Negative or not required by law. Electronically signed by: Jason Braden M.D. 07/21/2021 1:51 PM Medications Administered Home Medications omeprazole magnesium 20 mg tablet,delayed release (Prilosec OTC) 20 mg PO QAM 12/30/17 [History Confirmed 07/13/21] nitroglycerin 0.4 mg sublingual tablet 0.4 mg SUBLINGUAL Q5M PRN #1 btl 03/18/19 [Rx Confirmed 07/13/21] rosuvastatin 40 mg tablet 40 mg PO PM 09/17/19 [History Confirmed 07/13/21] cyanocobalamin (vitamin B-12) 100 mcg tablet 100 mcg PO QAM 10/15/19 [History Confirmed 07/21/21] isosorbide mononitrate 30 mg tablet,extended release 24 hr 30 mg PO QAM #30 tab 06/22/20 [Rx Confirmed 07/13/21] metoprolol tartrate 50 mg tablet 50 mg PO BID #180 tab 09/16/20 [Rx Confirmed 07/13/21] acetaminophen 325 mg tablet (Tylenol) 650 mg PO DIRECTED PRN 10/03/20 [History Confirmed 07/21/21] diltiazem HCl 120 mg capsule,extended release 24 hr 120 mg PO PM 02/25/21 [History Confirmed 07/21/21] aspirin 325 mg tablet,delayed release 325 mg PO DAILY 07/06/21 [History Confirmed 07/21/21] cholecalciferol (vitamin D3) 25 mcg (1,000 unit) tablet (Vitamin D3) 25 mcg PO DAILY 07/06/21 [History Confirmed 07/21/21] citalopram 40 mg tablet 20 mg PO DAILY 07/06/21 [History Confirmed 07/21/21] diclofenac sodium 1 % topical gel 0 g TOPICAL TID PRN 07/06/21 [History Confirmed 07/21/21] tamsulosin 0.4 mg capsule 0.4 mg PO DAILY 07/06/21 [History Confirmed 07/13/21] apixaban 5 mg tablet (Eliquis) 2.5 mg PO BID tab 07/13/21 [History Confirmed 0 07/21/21] furosemide 40 mg tablet 20 mg PO QAM #90 tab 07/14/21 [Rx] Discontinued Medications Furosemide (Furosemide 40 Mg/4 Ml Vial) 60 mg IV NOW STA Stop: 07/21/21 13:37 Last Admin: 07/21/21 13:54 Dose: 60 mg Documented by: [id number] ECG Additional Comments: Atrial fibrillation Prolonged QT Abnormal ECG When compared with ECG of 06-JUL-2021 01:14, No significant change was found Code Status & VTE Plan Code Status CODE: FULL VTE: SCDs, APixaban VTE Prophylaxis Plan VTE Prophylaxis will be ordered: Yes Supervising Physician Co-Signing Physician Notes I supervised NICOLASA Nance on this admission. I interviewed and examined the patient independently of him. The plan is as written in his note except for any following changes/exceptions: None 81yo M w/ hx of CHF who presents with fatigue. The patient is a poor historian and mostly reports to me that he is here for tiredness due to insomnia that has bothered him for years. He denies leg swelling or orthopnea. He does repot some weight gain that appers to be gradual. On admission here, he was up to 221 lbs where his prior baselines had been closer to 206 lbs per prior notes. He was hypoxemic on admission, but has also been hypoxemic on prior admissions as well and declined to have home O2 arranged. Will work to diurese patient and have Sherrillabbie Mcmullen see him in the hospital. Will likely need a slightly higher dose of Lasix as outpatient. PG Care Time/CCT Total # of Minutes Spent Total Time Spent with Patient: Total time spent is greater than 50% in coordination of care (as documented) at patient's floor/unit and/or counseling patient: Coding Level of Care Code 78302 Initial Inpt Care Lvl 3 Diagnoses Hypoxia R09.02 Chronic kidney disease N18.9 Chronic diastolic heart failure I50.32 Aortic insufficiency I35.1 CAD (coronary artery disease), yuhaaviatam coronary artery I25.10 Associated angina: without angina [place] vs. transplanted heart: y[place]aviatam heart Hypertension I10 Hypertension type: unspecified BPH with obstruction/lower urinary tract symptoms N40.1; N13.8 Hyperlipidemia E78.5 Hyperlipidemia type: unspecified Elevated troponin R77.8 (1) Hyperlipidemia Hyperlipidemia type: unspecified Qualified Code(s): E78.5 - Hyperlipidemia, unspecified (2) CAD (coronary artery disease), [place]aviat[place] coronary artery Associated angina: without angina [place] vs. transplanted heart: y[place]haaviatam heart Qualified Code(s): I25.10 - Atherosclerotic heart disease of y[place]haaviat[place] coronary artery without angina pectoris (3) Hypertension Hypertension type: unspecified Qualified Code(s): I10 - Essential (primary) hypertension
[2021-07-21] MEDS ORDERED: NITROGLYCERIN SL 0.4 MG/TAB TAB SL PRN (17:07)
--- NOTE | 2021-07-21 18:08 | Electrocardiogram Report ---
Test Reason : Blood Pressure : / mmHG Vent. Rate : 063 BPM Atrial Rate : 066 BPM P-R Int : 000 ms QRS Dur : 098 ms QT Int : 488 ms P-R-T Axes : 000 -15 -23 degrees QTc Int : 499 ms Atrial fibrillation Prolonged QT Abnormal ECG When compared with ECG of 06-JUL-2021 01:14, No significant change was found Confirmed by Jim Carey ([id number]) on 07/21/2021 6:08:12 PM Referred By: Confirmed By:Ramiro Carey
[2021-07-21] MEDS: ROSUVASTATIN CALCIUM 20 MG TAB PO SCH (20:07)
[2021-07-21] MEDS: APIXABAN 2.5 MG TAB PO SCH (20:08)
[2021-07-21] MEDS: dilTIAZem HCL 120 MG CAPCR PO SCH (20:08)
[2021-07-21] MEDS ORDERED: FUROSEMIDE 40 MG/4 ML VIAL IV ONE (21:00)
[2021-07-21] MEDS ORDERED: METOPROLOL TARTRATE 50 MG TAB PO SCH (21:00)
[2021-07-21] MEDS ORDERED: ACETAMINOPHEN 325 MG TAB PO PRN (22:18)
--- NOTE | 2021-07-21 22:21 | Communication Note ---
Date of Service: July 21, 2021 Patient requesting home Ambien. Reviewed pdmp. Zolpdem 5mg x 30 tabs last filled 06/09/[address] Phil Romeo. Adding this home med as a qhs prn.
[2021-07-21] MEDS: ZOLPIDEM TARTRATE 5 MG TAB PO PRN (22:29)
[2021-07-22 08:45] LABS: Basophils # (auto) 0.04 K/uL (0-0.2); Basophils % (auto) 0.6 %; Eosinophils # (auto) 0.09 K/uL (0-0.5); Eosinophils % (auto) 1.4 %; Hematocrit (blood only) 35.3 % (42-52); Hemoglobin 11.2 g/dL (14.0-18.0); Immature Granulocytes # (auto) 0.01 K/uL (0.00-0.02); Immature Granulocytes % (auto) 0.2 %; Lymphocytes # (auto) 0.82 K/uL (1.2-3.4); Lymphocytes % (auto) 12.6 %; Mean Corpuscular Hemoglobin 34.6 pg (25-34); Mean Corpuscular Hgb Conc 31.7 g/dL (32-36); Mean Platelet Volume 9.3 fL (7.4-10.4); Monocytes # (auto) 0.38 K/uL (0.11-0.59); Monocytes % (auto) 5.8 %; Neutrophils # (auto) 5.17 K/uL (1.4-6.5); Neutrophils % (auto) 79.4 %; Platelet Count 242 K/uL (130-400); RDW Coefficient of Variation 15.4 % (11.5-14.5); RDW Standard Deviation 61.4 fL (36.4-46.3); Red Blood Count 3.24 M/uL (4.7-6.1); White Blood Count 6.51 K/uL (4.8-10.8)
[2021-07-22 09:32] LABS: BUN Creatinine Ratio 19.3 (10-20); Calcium 8.5 mg/dl (8.5-10.1); Creatinine Clr Calc Pharmacy 40.7 ml/min; Est GFR (African American) 44.4 ml/min; Est GFR (Non-African American) 38.3 ml/min; Magnesium 2.7 mg/dl (1.7-2.4); Potassium 3.2 mmol/L (3.5-5.1)
[2021-07-22] MEDS: APIXABAN 2.5 MG TAB PO SCH ×2 (09:35→20:44)
[2021-07-22] MEDS: ASPIRIN 325 MG ECTAB PO SCH (09:35)
[2021-07-22] MEDS: ISOSORBIDE MONO EXTENDED REL 30 MG TABCR PO SCH (09:36)
[2021-07-22] MEDS: CITALOPRAM 20 MG TAB PO SCH (09:36)
[2021-07-22] MEDS: PANTOprazole 40 MG TAB PO SCH (09:37)
[2021-07-22] MEDS: TAMSULOSIN HCL 0.4 MG CAP PO SCH (09:37)
--- NOTE | 2021-07-22 15:24 | Heart Failure Consultation ---
Date of Consultation July 22, 2021 Assessment & Plan (1) Chronic diastolic heart failure: (2) CAD (coronary artery disease), [place] coronary artery: (3) Hypertension: (4) Gastroenteritis: (5) Acute kidney injury: (6) Syncope: (7) Pulmonary hypertension: (8) Mitral regurgitation: (9) Permanent atrial fibrillation: HFpEF: Patient does not appear excessively hypervolemic on exam today. BNP is trending down. Weight is up but it's unclear if this is fluid or body mass. He's been within 5 lbs of this since January 2021. He does seem to be having increased dyspnea compared to his baseline. His hypoxia is somewhat chronic and he has refused oxygen in the past. This is likely a contributing factor to his ongoing dyspnea and fatigue. Kidney function trending towards baseline. Would recommend further optimizing his volume status. He hasn't had any diuretics today. Would recommend Lasix 40 mg IV with a goal of at least 1L negative until creatinine bumps. Would recommend reassessing on a day to day basis. If not responding to diuretics would look into alternative etiologies for his dyspnea. Continue daily standing weights. Strict I&Os while admitted. Low sodium diet. Syncope: Cause of last admission. Etiology unclear- possibly orthostatic due to dehydration in the setting of gastroenteritis. Discussed outpatient cardiac monitoring. This was ordered at his outpatient visit. Continue to monitor while on telemetry. Pulmonary hypertension: Moderate to severe on recent echo. Previously had EVA which demonstrated moderate disease. Optimize volume status. Mitral regurgitation: Transesophageal echo demonstrated more moderate than severe regurgitation. Continue to monitor. Will likely repeat echo on an annual basis. Appears euvolemic and asymptomatic in this regard. CAD, [place] coronary artery: He is asymptomatic and denies angina. Medical therapy is recommended. Continue aspirin 81 mg daily. Continue beta-kenji, nitrate therapy, and high-intensity statin therapy. s/P CABG x 2: Patent CHOUDHARY to LAD and MITUL to RCA. Aortic regurgitation: Non severe. Follow over time. Atrial fibrillation: History of paroxysmal atrial fibrillation but now appears to be persistent. Continue Diltiazem. Continue Eliquis 5 mg BID. Hypokalemia: Replete as per primary service. Disposition: Recommend outpatient follow up with the heart failure program- 07/29/21 at 1130 History of Present Illness Attending Physician: Allen Shaffer History of Present Illness Mr. Dhillon is a 81-year-old gentleman with a history significant for chronic HFpEF, CAD status post CABG x2 (approximately 1999 or [address] [facility] [place]), paroxysmal atrial fibrillation status post elective cardioversion in approximately 2015 or 2017, hypertension, anemia, CKD, and dyslipidemia. Dr. Trinidad is his primary head buyer tobacco. 1. cardiac catheterization 11/06/[address] [facility] [place]: Proximal LAD 100%. Distal RCA 60%. Mid circumflex 30-40%. 2. CABG x2 [address] [facility] [place]: LAD and RCA reportedly bypassed. 3. DC cardioversion in : [facility]. Elective. Done for atrial fibrillation. 4. Echo 11/10/2018 normal LV systolic function. EF 55-60%. Severe left atrial dilation. mild right atrial dilation. Moderate AI. Mild to moderate MR. RVSP 30-40. 5. Nuclear stress 11/13/2018: Moderate sized area of base to mid inferolateral ischemia as well as a small area of distal anterolateral ischemia. EF 57%. Normal wall motion. 6. Cardiac catheterization 11/18/2018: Ostial LAD 60% with high diagonal vessel noted prior to proximal LAD 100%. Remainder of LAD fills via CHOUDHARY. Mid LAD 60- 70%. Mid circumflex 99% followed by 100%. Small OM1 proximal 98% (too small for intervention). Dominant RCA. Proximal RCA 90%. Mid RCA 100%. CHOUDHARY to LAD patent. MITUL to RCA patent. 7. Echo 03/19/2020: Mildly dilated LV with normal systolic function. EF 55- 60%. Hypokinesis of the inferolateral wall. Mild to moderate LVH. Mildly dilated RV with moderately reduced systolic function. Severe left atrial dilation. Severe MR. Mild AI. Mild to moderate TR. RVSP 80. 8. EVA 04/19/2020: Mildly dilated LV with normal systolic function. EF 55- 60%. No LVH. Mildly dilated RV with normal systolic function. Severe left atrial dilation. More moderate than severe, central MR. Mild AI. Normal RVSP. 9. Echo 10/04/20: Mildly dilated LV with normal function. EF 55-60%. No RWMA. Severe concentric LVH. Mildly dilated RV with reduced systolic function. Severe left atrial dilation. Moderate right atrial dilation. Mild aortic regurgitation. Moderate to severe MR. Moderate pulmonary hypertension. RVSP 53 mmHg. Patient is well known to the heart failure program and is compliant with regular follow up. Last outpatient evaluation was 07/06/21. Recent admitted from 07/06/21 through 07/07/21 after a syncopal episode, likely secondary to volume depletion from gastroenteritis. Lasix was held on admission and he was gently rehydrated. Chronic hypoxia noted, patient declined O2 in the past. He was discharged on his home dose of Lasix 20 mg daily with an additional 20 mg PRN. Eliquis was reduced to 2.5 mg. He was readmitted on 07/21/21 from PCP's office for hypoxia, dyspnea, and f atigue. Patient reports poor sleep the past few nights. His son confirms this morning that he has 2 days of AM pills still in his box and suspects he may have missed his Lasix for several days. He was treated with Lasix 60 mg IV in the ED. CXR without pulmonary edema or effusion. BNP 519, down from previous. Patient reports he's feeling well today. He's still requiring supplemental O2, 2L and seems more short of breath. He has increasing dyspnea just moving around in his bed. He reports increased urine output on IV Lasix. He's comfortably laying flat during rounds. Weight was 220 lb standing scale this am. He's negative 1 L. Review of systems: As above. Family history: Mother at the age of 73. Father from accident. No known premature CAD. Social history:He denies tobacco or alcohol abuse. 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 He had 7 children. He lives at home with his son [place]. He is alone in his hospital room today. Allergies Allergy/AdvReac Type Severity Reaction Status Date / Time No Known Allergies Allergy Verified 07/21/21 14:27 Home Medications Medication Instructions Recorded Confirmed Type omeprazole magnesium 20 mg 20 mg PO QAM 12/30/17 07/21/21 History tablet,delayed release (Prilosec OTC) nitroglycerin 0.4 mg sublingual 0.4 mg SUBLINGUAL Q5M PRN #1 btl 03/18/19 07/21/21 Rx tablet rosuvastatin 40 mg tablet 40 mg PO PM 09/17/19 07/21/21 History cyanocobalamin (vitamin B-12) 100 100 mcg PO QAM 10/15/19 07/21/21 History mcg tablet isosorbide mononitrate 30 mg 30 mg PO QAM #30 tab 06/22/20 07/21/21 Rx tablet,extended release 24 hr metoprolol tartrate 50 mg tablet 50 mg PO BID #180 tab 09/16/20 07/21/21 Rx acetaminophen 325 mg tablet 650 mg PO DIRECTED PRN 10/03/20 07/21/21 History (Tylenol) diltiazem HCl 120 mg 120 mg PO PM 02/25/21 07/21/21 History capsule,extended release 24 hr aspirin 325 mg tablet,delayed 325 mg PO DAILY 07/06/21 07/21/21 History release cholecalciferol (vitamin D3) 25 25 mcg PO DAILY 07/06/21 07/21/21 History mcg (1,000 unit) tablet (Vitamin D3) citalopram 40 mg tablet 20 mg PO DAILY 07/06/21 07/21/21 History diclofenac sodium 1 % topical gel 0 g TOPICAL TID PRN 07/06/21 07/21/21 History tamsulosin 0.4 mg capsule 0.4 mg PO DAILY 07/06/21 07/21/21 History apixaban 5 mg tablet (Eliquis) 2.5 mg PO BID tab 07/13/21 07/21/21 History furosemide 40 mg tablet 20 mg PO QAM #90 tab 07/14/21 07/21/21 Rx Patient History Medical History (Updated 07/22/21 @ 00:04 by Background Daemon) Acute alteration in mental status Aortic insufficiency BPH with obstruction/lower urinary tract symptoms CAD (coronary artery disease), [place] coronary artery Chronic diastolic heart failure Chronic kidney disease Confusion Fall History of anesthesia reaction CONVULSIONS POST OP QUICK COMING AWAKE FROM CABG SURG 20 YRS AGO. DENIES SEIZURES, SAYS HE 'WOKE UP TOO QUICKLY' AND THEY PUT HIM BACK UNDER Hyperlipidemia Hypertension Mitral regurgitation Permanent atrial fibrillation Surgical History H/O colonoscopy S/P CABG x 2 S/P TURP Family History Brother Family history of esophageal cancer Mother , age 73 of a stroke and [place] Myocardial infarction Stroke Father , age 31 in a gas explosion No problems noted. 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 Alert and oriented. HEENT: Anicteric sclera. Neck: Supple, no JVD. + HJR Cardiac: Irregularly irregular, but rate controlled. Normal S1-S2. Grade II systolic murmur. No rubs, or gallops. Pulmonary: Normal respiratory effort. Clear to auscultation bilaterally without wheezes, rales, or rhonchi. Abdomen: Soft, nontender, nondistended, with normoactive bowel sounds. No bruits noted. Extremities: No significant lower extremity edema. No cyanosis. No lesions or skin changes. Psychiatric: Affect appears appropriate. Results & Data ([facility]) Vital Signs (Past 12 Hours) Vital Signs Temp Pulse Pulse Resp BP Pulse Ox 07/22/21 15:08 98.1 F 72 16 129/56 L 94 07/22/21 11:45 97.9 F 64 24 115/61 92 07/22/21 07:49 97.3 F L 66 16 142/69 H 93 07/22/21 07:12 64 07/22/21 04:39 71 07/22/21 04:00 97.3 F L 63 20 148/66 H 91 Coding Level of Care Code 06902 Initial Inpt Care Lvl 3 Diagnoses Chronic diastolic heart failure I50.32 CAD (coronary artery disease), [place] coronary artery I25.10 Associated angina: without angina [place] vs. transplanted heart: [place] heart Hypertension I10 Hypertension type: unspecified Gastroenteritis K52.9 Acute kidney injury N17.9 Syncope R55 Syncope type: unspecified Pulmonary hypertension I27.20 Mitral regurgitation I34.0 Permanent atrial fibrillation I48.21 (1) CAD (coronary artery disease), [place] coronary artery Associated angina: without angina [place] vs. transplanted heart: [place] heart Qualified Code(s): I25.10 - Atherosclerotic heart disease of [place] coronary artery without angina pectoris (2) Syncope Syncope type: unspecified Qualified Code(s): R55 - Syncope and collapse (3) Hypertension Hypertension type: unspecified Qualified Code(s): I10 - Essential (primary) hypertension
[2021-07-22] MEDS ORDERED: FUROSEMIDE 40 MG/4 ML VIAL IV ONE (15:45)
[2021-07-22] MEDS ORDERED: POTASSIUM CHLORIDE CRTAB 20 MEQ TABCR PO STA (18:23)
[2021-07-22] MEDS: dilTIAZem HCL 120 MG CAPCR PO SCH (20:44)
[2021-07-22] MEDS: POTASSIUM CHLORIDE CRTAB 20 MEQ TABCR PO SCH (20:45)
[2021-07-22] MEDS: ROSUVASTATIN CALCIUM 20 MG TAB PO SCH (20:45)
[2021-07-22] MEDS: ZOLPIDEM TARTRATE 5 MG TAB PO PRN (20:49)
--- NOTE | 2021-07-22 21:14 | Hospitalist Progress Note ---
Date of Service July 22, 2021 Assessment & Plan (1) Hypoxia: Plan: Hypoxia with dyspnea Acute diastolic CHF -Patient responding to diuretics. Will monitor. - COVID and Influenza are negative and no evidence of bacterial infection - Patient does not appear systemically overloaded, will diurese overnight with additional 40mg Lasix IV - He has notable MR and AI- had recent ECHO done 07/22 and had a EVA in the past to better evaluate his MR and was classified as mild- remains with mild to moderate MR and AR/AI - He is noted to have elevated RVSP as well as noting mild tracheal stenosis from CT scan of the chest done 02/20- with a history of intubation - He has not had a sleep study performed and/or PFTs- his HCO3 is chronically > 27 - could consider repeating CT scan and evaluate tracheal stenosis- would favor this vs. bronchoscopy if symptoms persist following diuresis - ABG- 7./ - PE unlikely as he is anticoagulated and compliant and without tachypnea- oxygenation also increased with minimal o2 support - Not severely anemic - stable at 11.9 remains macrocytic (2) Chronic kidney disease: Plan: Stable continue to avoid further nephrotoxic medications - follow with diuresing (3) Chronic diastolic heart failure: Plan: EF 55-60% on most recent ECHO (4) Aortic insufficiency: Plan: Follow with [facility] per cardiology - noted as mild with recent ECHO 07/06/21 (5) CAD (coronary artery disease), [place] coronary artery: Plan: With CABG x2 1997 - Continue with BB, Statin, Isosorbide, ASA - remains with out anginal symptoms (6) Hypertension: Plan: As above (7) BPH with obstruction/lower urinary tract symptoms: Plan: Continue Tamsulosin (8) Hyperlipidemia: Plan: Continue with statin (9) Elevated troponin: Plan: HScTNI 25 at 1200 reflex is pending - again without anginal symptoms- this is most consistent with type II demand from underlying heart failure and hypoxia Admission and Anticipated Discharge Date Admission Date: July 21, 2021 Subjective Patient reports breathing better. Review of Systems Review of Systems: All systems reviewed & are unremarkable except as noted in HPI & below Physical Exam Physical Exam: General: awake, alert, no apparent distress Head: Normocephalic, atraumatic ENT: PERRL, EOMI, no pharyngeal exudate, mucous membranes moist Neuro: AAO x 3, speech clear and appropriate, strength intact bilaterally 5/5, sensation intact and equal all extremities and dermatomes, no pronator drift Chest: equal rise and fall of the chest, abdominal breathing, no heaves or thrills, scattered crackles, on 2LNC Cardiac: Regular rate and rhythm, telemetry reviewed, skin warm dry, cap refill <3 seconds, peripheral pulses +2 no JVD, Grade II systolic murmur, trace lower extremity edema, mild abdominal distention GI: NABS x 4 quadrants, soft, nontender to palpation, no rebound, guarding or tenderness : Spontaneously voiding, no pain, no CVA tenderness, Extremities: Normal inspection, no peripheral edema or erythema, calfs nontender to palpation Psych: Normal mood and affect Skin: no rash or erythema Results & Data Results & Data ([facility]) Vital Signs (Past 12 Hours) Vital Signs Temp Pulse Pulse Resp BP Pulse Ox 07/22/21 19:00 36.4 C L 76 18 125/55 L 92 07/22/21 15:08 36.7 C 72 16 129/56 L 94 07/22/21 15:00 66 07/22/21 11:45 36.6 C 64 24 115/61 92 PG Care Time/CCT Total # of Minutes Spent Total Time Spent with Patient: Total time spent is greater than 50% in coordination of care (as documented) at patient's floor/unit and/or counseling patient: Coding Level of Care Code 24023 Subseq Hosp Care Lvl 2 Diagnoses Hypoxia R09.02 Chronic kidney disease N18.9 Chronic diastolic heart failure I50.32 Aortic insufficiency I35.1 CAD (coronary artery disease), [place] coronary artery I25.10 Associated angina: without angina [place] vs. transplanted heart: [place] heart Hypertension I10 Hypertension type: unspecified BPH with obstruction/lower urinary tract symptoms N40.1; N13.8 Hyperlipidemia E78.5 Hyperlipidemia type: unspecified Elevated troponin R77.8 Time Spent (min) 25 (1) Hyperlipidemia Hyperlipidemia type: unspecified Qualified Code(s): E78.5 - Hyperlipidemia, unspecified (2) CAD (coronary artery disease), [place] coronary artery Associated angina: without angina [place] vs. transplanted heart: [place] heart Qualified Code(s): I25.10 - Atherosclerotic heart disease of [place] coronary artery without angina pectoris (3) Hypertension Hypertension type: unspecified Qualified Code(s): I10 - Essential (primary) hypertension
[2021-07-23 05:49] LABS: Basophils # (auto) 0.03 K/uL (0-0.2); Basophils % (auto) 0.4 %; Eosinophils # (auto) 0.08 K/uL (0-0.5); Eosinophils % (auto) 1.2 %; Hematocrit (blood only) 34.5 % (42-52); Hemoglobin 11.3 g/dL (14.0-18.0); Immature Granulocytes # (auto) 0.01 K/uL (0.00-0.02); Immature Granulocytes % (auto) 0.1 %; Lymphocytes # (auto) 0.48 K/uL (1.2-3.4); Lymphocytes % (auto) 7.1 %; Mean Corpuscular Hemoglobin 35.5 pg (25-34); Mean Corpuscular Hgb Conc 32.8 g/dL (32-36); Mean Corpuscular Volume 108.5 fL (80-100); Mean Platelet Volume 9.1 fL (7.4-10.4); Monocytes # (auto) 0.92 K/uL (0.11-0.59); Monocytes % (auto) 13.6 %; Neutrophils # (auto) 5.23 K/uL (1.4-6.5); Neutrophils % (auto) 77.6 %; Platelet Count 241 K/uL (130-400); RDW Coefficient of Variation 15.2 % (11.5-14.5); RDW Standard Deviation 60.2 fL (36.4-46.3); Red Blood Count 3.18 M/uL (4.7-6.1); White Blood Count 6.75 K/uL (4.8-10.8)
[2021-07-23 06:18] LABS: Anion Gap 6 (3-11); BUN Creatinine Ratio 18.7 (10-20); Blood Urea Nitrogen 26 mg/dl (6-23); Calcium 8.6 mg/dl (8.5-10.1); Carbon Dioxide 28 mmol/L (21-32); Chloride 105 mmol/L (98-107); Creatinine Clr Calc Pharmacy 47.6 ml/min; Est GFR (African American) 55.1 ml/min; Est GFR (Non-African American) 47.5 ml/min; Glucose 108 mg/dl (70-99(Fasting)); Magnesium 2.7 mg/dl (1.7-2.4); Sodium 139 mmol/L (136-145)
[2021-07-23] MEDS: PANTOprazole 40 MG TAB PO SCH (08:46)
[2021-07-23] MEDS: ASPIRIN 325 MG ECTAB PO SCH (08:46)
[2021-07-23] MEDS: TAMSULOSIN HCL 0.4 MG CAP PO SCH (08:46)
[2021-07-23] MEDS: CITALOPRAM 20 MG TAB PO SCH (08:47)
[2021-07-23] MEDS: ISOSORBIDE MONO EXTENDED REL 30 MG TABCR PO SCH (08:47)
[2021-07-23] MEDS: POTASSIUM CHLORIDE CRTAB 20 MEQ TABCR PO SCH (08:47)
[2021-07-23] MEDS: APIXABAN 2.5 MG TAB PO SCH (08:48)
[2021-07-23] MEDS ORDERED: FUROSEMIDE 40 MG/4 ML VIAL IV ONE (11:00)
--- NOTE | 2021-07-24 07:42 | Discharge Summary ---
Date of Service July 23, 2021 Admission HPI Per Admitting Provider 81 YOM with medical history of: CAD with bypass surgery x2 1997, HTN, HFpEF, Afib (on Apixaban dose adjusted), AI, MR, macrocytic anemia, depression. Patient comes to the [facility] today for increase in dyspnea and feeling of increase edema around his waist line. This has been ongoing for the 3-5 days. He is on titratable Lasix dosing at home and increased his dose of Lasix to 20mg PO for the last 2 days with not much notice in his breathing. The patient states that he is able to go up 14 steps daily without any chest pain, but has noticed that he is breathing heavier at the top. He endorses continued fatigue and decrease sleeping at night. He is accompanied by his son whom he lives with. His son helps assist him with his diet and salt intake and believe he is doing a good job with this. He has had his medications adjusted over the past month as he has been having episodes of passing out. He does follow with the HF clinic and was evaluated there last week. He comes in today mildly hypoxic in the high 80s, his COVID test and Influenza test are negative. He had routine labs to include HScTNI and BNP as well as CXR done. He was given 60mg IV lasix by the [facility] and hospitalist service was consulted for admission. The patient is normally not on oxygen at home. His CXR is not overtly volume overloaded, his BNP is 519, which is the least it has been on his previous admission. His HScTNI is 25. He did not call the HF clinic today prior to comming to the [facility]. The patient is dyspneic when lying flat. He is on anticoagulation with apixaban 2.5mg. Will obtain ABG evaluate his PaO2 and PaCO2. He has not had any history of underlying pulmonary disease that he knows of and is not on CPAP/BiPAP at home. Patient will be admitted to medical telemetry, will give Lasix 40mg IV tonight, follow his oxygenation and trend CHANEL through the PM. Will consult HF team for consistency. Principal Diagnosis Acute on chronic diastolic CHF treated with multiple dosed of IV Lasix Discharge Exam General: awake, alert, no apparent distress Head: Normocephalic, atraumatic ENT: PERRL, EOMI, no pharyngeal exudate, mucous membranes moist Neuro: AAO x 3, speech clear and appropriate, strength intact bilaterally 5/5, sensation intact and equal all extremities and dermatomes, no pronator drift Chest: equal rise and fall of the chest, no accesory muscle use, decreased rales at bases. Cardiac: Regular rate and rhythm, telemetry reviewed, skin warm dry, cap refill <3 seconds, peripheral pulses +2 no JVD, Grade II systolic murmur, trace lower extremity edema, mild abdominal distention GI: NABS x 4 quadrants, soft, nontender to palpation, no rebound, guarding or tenderness : Spontaneously voiding, no pain, no CVA tenderness, Extremities: Normal inspection, no peripheral edema or erythema, calfs nontender to palpation Psych: Normal mood and affect Skin: no rash or erythema Discharge Data Allergies Allergy/AdvReac Type Severity Reaction Status Date / Time No Known Allergies Allergy Verified 07/21/21 14:27 Consultations 07/21/21 14:25 ED Decision to Admit Stat 07/21/21 17:07 [facility] CHF Program Referral Routine Hospital Course (1) Hypoxia: Hypoxia with dyspnea Acute on chronic diastolic CHF treated with multiple dosed of IV Lasix Acute diastolic CHF - PE unlikely as he is anticoagulated and compliant and without tachypnea- oxygenation also increased with minimal o2 support - COVID and Influenza are negative and no evidence of bacterial infection -Patient responded to diuretics. Likely missed doses of lasix at home. - He has notable MR and AI- had recent ECHO done 07/22 and had a EVA in the past to better evaluate his MR and was classified as mild- remains with mild to moderate MR and AR/AI - He is noted to have elevated RVSP as well as noting mild tracheal stenosis from CT scan of the chest done 02/20- with a history of intubation - He has not had a sleep study performed and/or PFTs- his HCO3 is chronically > 27 -Patient asked to be discharged, recomended that he contiue to diurese in the hospital. A-Obtained 2 step. -Patient will require 2 liters of nasal cannula on ambulation. -Patient ultimately preferred to be discharged home, plan is to obtain a close followup with CHF clinic. Patient will be on 40 mg of lasix twice a day on Sunday and will followup with CHF clinic on Sunday. (2) Chronic kidney disease: Stable continue to avoid further nephrotoxic medications - follow with lilian (3) Chronic diastolic heart failure: EF 55-60% on most recent ECHO (4) Aortic insufficiency: Follow with [facility] per cardiology - noted as mild with recent ECHO 07/06/21 (5) CAD (coronary artery disease), [place] coronary artery: With CABG x2 1997 - Continue with BB, Statin, Isosorbide, ASA - remains with out anginal symptoms (6) Hypertension: As above (7) BPH with obstruction/lower urinary tract symptoms: Continue Tamsulosin (8) Hyperlipidemia: Continue with statin (9) Elevated troponin: HScTNI 25 at 1200 reflex is pending - again without anginal symptoms- this is most consistent with type II demand from underlying heart failure and hypoxia Total Time Total Time Spent Total Time Spent (In Minutes): 45 Discharge Plan Discharge Items Patient Disposition: Home - Self-Care Reason For Visit: HYPOXIA, DYSPNEA, FLUID RETENTION Discharge Diagnosis: congestive heart failure Condition on Discharge: Fair Activity: Resume your previous activity Non-emergency contact: Primary Care Provider Call non-emergency contact if: you have any medication questions Follow-up/Referrals: Phil Hicks MD [Primary Care Provider] - Julia Mcmullen PA-C [Physician Oxygen System Tester] - 07/29/21 11:30 am Diet: Low Sodium (2gm) Addtl Attending Provider Instructions: Recommend 2 liters nasal cannula. Call your Primary Care doctor if any of the following symptoms or problems start or get worse: * Shortness of breath or difficulty breathing * Wake up at night short of breath * Chest pain * Cough * Swelling of your hands, feet, or legs * More fatigued or tired with your normal activity * Palpitations - sudden fast heart beats WEIGHT * Weigh yourself every morning after using the bathroom. * Use the same scale. * Wear the same amount of clothing. * Write your weight down on a chart. * Call your Primary Care doctor if you gain more than 2-3 pounds in 1-2 days. MEDICATIONS * Use this discharge instruction sheet for medication instructions. * Take your medications at the time your doctor ordered. * Do not skip a dose of your medicines. * If you miss a dose of medicine, take it as soon as possible, but DO NOT DOUBLE A DOSE. * Read your medicine information when you get home. * Know all of the side effects of your medicine. If in doubt, ask your pharmacist * Call your Primary Care doctor's office if you have any side effects. * Be sure all of your doctors know what medicine and herbs you take (including cold, flu, and herbal medicine). Take the following with you to your follow-up doctor appointments: * Weight Chart * Medication List * List of questions Do not drink excessive alcohol, beer or wine. Pending Studies at Discharge: No Stand-Alone Forms: My [facility] Fusion Dynamic, Smoking Cessation Medications and DC Order Prescriptions: New potassium chloride 10 mEq tablet extended release 10 meq PO BID Qty: 60 RF: 0 Continued Eliquis 5 mg tablet 2.5 mg PO BID RF: 0 isosorbide mononitrate 30 mg tablet extended release 24 hr 30 mg PO QAM Qty: 30 RF: 5 cyanocobalamin (vitamin B-12) 100 mcg tablet 100 mcg PO QAM RF: 0 rosuvastatin 40 mg tablet 40 mg PO PM RF: 0 metoprolol tartrate 50 mg tablet 50 mg PO BID Qty: 180 RF: 3 omeprazole magnesium [Prilosec OTC] 20 mg Tablet,Delayed Release (Dr/Ec) 20 mg PO QAM RF: 0 nitroglycerin 0.4 mg tablet, sublingual 0.4 mg sublingual Q5M PRN (Reason: chest pain) Qty: 1 RF: 0 acetaminophen [Tylenol] 325 mg Tablet 650 mg PO DIRECTED PRN (Reason: PAIN/FEVER) RF: 0 diltiazem HCl 120 mg capsule,extended release 24hr 120 mg PO PM RF: 0 citalopram 40 mg Tablet 20 mg PO DAILY RF: 0 aspirin 325 mg Tablet,Delayed Release (Dr/Ec) 325 mg PO DAILY RF: 0 tamsulosin 0.4 mg capsule 0.4 mg PO DAILY RF: 0 cholecalciferol (vitamin D3) [Vitamin D3] 25 mcg (1,000 unit) Tablet 25 mcg PO DAILY RF: 0 Changed furosemide 40 mg tablet 40 mg PO BID Qty: 60 RF: 0 Discontinued diclofenac sodium 1 % Gel 0 g TOPICAL TID PRN (Reason: Pain) RF: 0 Discharge Orders: Discharge Order (Routine); Ordered 07/23/21 Ordered By: Allen Shaffer Admission Data Admit Date/Time: 07/21/21 14:53 Attending Provider: Allen Shaffer Admit Provider: Praneeth Marquez Primary Care Provider: Phil Hicks Other Providers: Praneeth Marquez ; Julia Mcmullen ; [facility] Other Interventions: Discharge Summary Assessment (RN) Last Done: 07/23/21 13:54 Coding Level of Care Code D/C DAY MANAGEMENT >30 MINS Diagnoses Hypoxia R09.02 Chronic kidney disease N18.9 Chronic diastolic heart failure I50.32 Aortic insufficiency I35.1 CAD (coronary artery disease), [place] coronary artery I25.10 [place] vs. transplanted heart: [place] heart Associated angina: without angina Hypertension I10 Hypertension type: unspecified BPH with obstruction/lower urinary tract symptoms N40.1; N13.8 Hyperlipidemia E78.5 Hyperlipidemia type: unspecified Elevated troponin R77.8
== END 2021-07-23 15:02 | disposition home or self-care (01) | DRG 291 ==
LOC: ED 11:56 → 2N 14:53 → SUATTDRO 14:53 → 2N 17:00
DX: I48.21 Permanent atrial fibrillation; Z95.1 Presence of aortocoronary bypass graft; R09.02 Hypoxemia; N40.1 Benign prostatic hyperplasia with lower urinary tract symptoms; N18.9 Chronic kidney disease, unspecified; E86.0 Dehydration; Z79.82 Long term (current) use of aspirin; I08.0 Rheumatic disorders of both mitral and aortic valves; I25.10 Atherosclerotic heart disease of native coronary artery without angina pectoris; K52.9 Noninfective gastroenteritis and colitis, unspecified; I95.1 Orthostatic hypotension; Z79.01 Long term (current) use of anticoagulants; I13.0 Hypertensive heart and chronic kidney disease with heart failure and stage 1 through stage 4 chronic kidney disease, or unspecified chronic kidney disease; I50.33 Acute on chronic diastolic (congestive) heart failure; Z87.891 Personal history of nicotine dependence

== ENCOUNTER 2022-01-11 00:49 | Inpatient (IN) ==
[2022-01-11 01:37] LABS: Basophils # (auto) 0.07 K/uL (0-0.2); Basophils % (auto) 0.8 %; Eosinophils # (auto) 0.12 K/uL (0-0.50); Eosinophils % (auto) 1.4 %; Hematocrit (blood only) 40.3 % (40.1-51.0); Hemoglobin 13.5 g/dl (14.0-18.0); Immature Granulocytes # (auto) 0.02 K/uL (0.00-0.02); Immature Granulocytes % (auto) 0.2 %; Lymphocytes # (auto) 0.82 K/uL (1.2-3.4); Lymphocytes % (auto) 9.9 %; Mean Corpuscular Hgb Conc 33.5 g/dL (32.0-36.0); Mean Corpuscular Volume 101.5 fL (80.0-100.0); Mean Platelet Volume 9.7 fL (9.4-12.4); Monocytes % (auto) 14.5 %; Neutrophils # (auto) 6.05 K/uL (1.4-6.5); Neutrophils % (auto) 73.2 %; Platelet Count 197 K/uL (130-400); RDW Coefficient of Variation 14.3 % (11.5-14.5); RDW Standard Deviation 53.5 fL (36.4-46.3); Red Blood Count 3.97 M/uL (4.63-6.08); White Blood Count 8.28 K/ul (4.8-10.8)
[2022-01-11 01:49] LABS: INR 1.4 (0.9-1.1); Prothrombin Time 14.7 Seconds (9.0-12.0)
--- NOTE | 2022-01-11 01:55 | Emergency Department Note ---
History of Present Illness General Chief complaint: Shortness of Breath/Dyspnea Stated complaint: SHORTNESS OF BREATH,DIZZINESS,FATIGUE,DIARRHEA Time Seen by Provider: 01/11/22 01:17 History of Present Illness Maximum Pain Intensity: 5 81-year-old male presents to the emergency department with a few day history of cough cold congestion symptoms mild shortness of breath and diarrhea; patient denies chest pain denies nausea and vomiting denies fever. Patient states that he has been short of breath. Patient's had a few home COVID test that were negative. There are no other mitigating relieving factors Home Medications Medication Instructions Recorded Confirmed Type omeprazole magnesium 20 mg 20 mg PO QAM 12/30/17 11/07/21 History tablet,delayed release (Prilosec OTC) rosuvastatin 40 mg tablet 40 mg PO PM 09/17/19 11/07/21 History cyanocobalamin (vitamin B-12) 100 100 mcg PO QAM 10/15/19 11/07/21 History mcg tablet isosorbide mononitrate 30 mg 30 mg PO QAM #30 tabs 06/22/20 11/07/21 Rx tablet,extended release 24 hr metoprolol tartrate 50 mg tablet 50 mg PO BID #180 tabs 09/16/20 11/07/21 Rx acetaminophen 325 mg tablet 650 mg PO DIRECTED PRN 10/03/20 11/07/21 History (Tylenol) PAIN/FEVER diltiazem HCl 120 mg 120 mg PO PM 02/25/21 11/07/21 History capsule,extended release 24 hr aspirin 325 mg tablet,delayed 325 mg PO DAILY 07/06/21 11/07/21 History release cholecalciferol (vitamin D3) 25 25 mcg PO DAILY 07/06/21 11/07/21 History mcg (1,000 unit) tablet (Vitamin D3) tamsulosin 0.4 mg capsule 0.4 mg PO DAILY 07/06/21 11/07/21 History apixaban 5 mg tablet (Eliquis) 2.5 mg PO BID 07/13/21 11/07/21 History furosemide 40 mg tablet 40 mg PO BID #60 tabs 07/23/21 11/07/21 Rx nitroglycerin 0.4 mg sublingual 0.4 mg sublingual Q5M PRN chest 10/28/21 11/07/21 Rx tablet pain #1 btl Allergies Allergy/AdvReac Type Severity Reaction Status Date / Time No Known Allergies Allergy Verified 11/07/21 11:28 Past Med/Surg History Medical History Acute alteration in mental status Acute kidney injury Aortic insufficiency BPH with obstruction/lower urinary tract symptoms CAD (coronary artery disease), bois forte coronary artery Chronic diastolic heart failure Chronic heart failure with preserved ejection fraction Chronic kidney disease Confusion Fall History of anesthesia reaction CONVULSIONS POST OP QUICK COMING AWAKE FROM CABG SURG 20 YRS AGO. DENIES SEIZURES, SAYS HE 'WOKE UP TOO QUICKLY' AND THEY PUT HIM BACK UNDER Hyperlipidemia Hypertension Mitral regurgitation Permanent atrial fibrillation Pulmonary hypertension Surgical History H/O colonoscopy S/P CABG x 2 S/P TURP Family History Brother Family history of esophageal cancer Mother , age 73 of a stroke and [place] Myocardial infarction Stroke Father , age 31 in a gas explosion No problems noted. 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 [employer] Feels Safe at Home: Yes Assistive Devices: Glasses Review of Systems A total of 10 systems reviewed and were otherwise negative Constitutional: no fever Respiratory: + dyspnea Cardiovascular: no chest pain Gastrointestinal: + diarrhea/loose stools Physical Exam Vital Signs Vital Signs - 24 hr 01/11/22 00:54 01/11/22 01:21 01/11/22 01:21 Temperature 36.3 C L Temperature Source Temporal Artery Scan Pulse Rate 73 Pulse Rate from SpO2 Sensor Respiratory Rate 22 Respiratory Effort / Characteristics Non-Labored Spontaneous Short of Breath SOB on Exertion Respiratory Depth Normal Blood Pressure 122/70 Blood Pressure Mean 87 Pulse Oximetry 92 91 97 Oxygen Delivery Method Room Air Nasal Cannula Nasal Cannula Oxygen Flow Rate 2 Sepsis New/Unexplained Change in Mental Status N/A Sepsis Action Taken by Nursing No Action Required Oxygen Flow Rate - Titration 3 Pulse Oximetry Post Tiitration 97 01/11/22 01:21 01/11/22 03:00 01/11/22 01:12 Temperature Temperature Source Pulse Rate 77 Pulse Rate from SpO2 Sensor 80 Respiratory Rate 30 H Respiratory Effort / Characteristics Non-Labored Respiratory Depth Normal Blood Pressure Blood Pressure Mean Pulse Oximetry 95 Oxygen Delivery Method Nasal Cannula Nasal Cannula Oxygen Flow Rate 2 Sepsis New/Unexplained Change in Mental Status Sepsis Action Taken by Nursing Oxygen Flow Rate - Titration Pulse Oximetry Post Tiitration 01/11/22 01:16 01/11/22 01:16 01/11/22 01:20 Temperature Temperature Source Pulse Rate 64 70 Pulse Rate from SpO2 Sensor 66 73 Respiratory Rate 28 H 33 H Respiratory Effort / Characteristics Respiratory Depth Blood Pressure 106/65 Blood Pressure Mean 78 Pulse Oximetry 90 92 Oxygen Delivery Method Nasal Cannula Oxygen Flow Rate 3 Sepsis New/Unexplained Change in Mental Status Sepsis Action Taken by Nursing Oxygen Flow Rate - Titration Pulse Oximetry Post Tiitration 01/11/22 01:33 01/11/22 01:40 01/11/22 01:50 Temperature Temperature Source Pulse Rate 76 79 81 Pulse Rate from SpO2 Sensor 77 79 Respiratory Rate 35 H 25 H 25 H Respiratory Effort / Characteristics Respiratory Depth Blood Pressure Blood Pressure Mean Pulse Oximetry 93 97 Oxygen Delivery Method Oxygen Flow Rate Sepsis New/Unexplained Change in Mental Status Sepsis Action Taken by Nursing Oxygen Flow Rate - Titration Pulse Oximetry Post Tiitration 01/11/22 02:00 01/11/22 02:10 01/11/22 02:20 Temperature Temperature Source Pulse Rate 69 74 71 Pulse Rate from SpO2 Sensor 74 72 73 Respiratory Rate 25 H 18 27 H Respiratory Effort / Characteristics Respiratory Depth Blood Pressure Blood Pressure Mean Pulse Oximetry 92 96 92 Oxygen Delivery Method Oxygen Flow Rate Sepsis New/Unexplained Change in Mental Status Sepsis Action Taken by Nursing Oxygen Flow Rate - Titration Pulse Oximetry Post Tiitration 01/11/22 02:30 01/11/22 02:40 01/11/22 02:50 Temperature Temperature Source Pulse Rate 68 64 77 Pulse Rate from SpO2 Sensor 70 63 75 Respiratory Rate 23 22 33 H Respiratory Effort / Characteristics Respiratory Depth Blood Pressure Blood Pressure Mean Pulse Oximetry 92 93 94 Oxygen Delivery Method Oxygen Flow Rate Sepsis New/Unexplained Change in Mental Status Sepsis Action Taken by Nursing Oxygen Flow Rate - Titration Pulse Oximetry Post Tiitration 01/11/22 03:00 01/11/22 03:10 01/11/22 03:20 Temperature Temperature Source Pulse Rate 60 81 67 Pulse Rate from SpO2 Sensor 69 78 70 Respiratory Rate 24 34 H 19 Respiratory Effort / Characteristics Respiratory Depth Blood Pressure Blood Pressure Mean Pulse Oximetry 94 87 L 94 Oxygen Delivery Method Oxygen Flow Rate Sepsis New/Unexplained Change in Mental Status Sepsis Action Taken by Nursing Oxygen Flow Rate - Titration Pulse Oximetry Post Tiitration 01/11/22 03:30 01/11/22 03:40 01/11/22 03:50 Temperature Temperature Source Pulse Rate 74 74 73 Pulse Rate from SpO2 Sensor 74 76 76 Respiratory Rate 20 21 21 Respiratory Effort / Characteristics Respiratory Depth Blood Pressure Blood Pressure Mean Pulse Oximetry 97 98 97 Oxygen Delivery Method Oxygen Flow Rate Sepsis New/Unexplained Change in Mental Status Sepsis Action Taken by Nursing Oxygen Flow Rate - Titration Pulse Oximetry Post Tiitration 01/11/22 04:00 Temperature Temperature Source Pulse Rate 75 Pulse Rate from SpO2 Sensor 77 Respiratory Rate 14 Respiratory Effort / Characteristics Respiratory Depth Blood Pressure Blood Pressure Mean Pulse Oximetry 98 Oxygen Delivery Method Oxygen Flow Rate Sepsis New/Unexplained Change in Mental Status Sepsis Action Taken by Nursing Oxygen Flow Rate - Titration Pulse Oximetry Post Tiitration GENERAL: Patient is awake alert in no acute distress patient is resting comfortably and showing no signs of anxiety EYES: The conjunctivae are clear. The pupils are round and reactive. EARS, NOSE, MOUTH AND THROAT: The nose is without any evidence of any deformity. Mucous membranes are moist. Tongue is midline. NECK: The neck is nontender and supple. RESPIRATORY: Normal respiratory effort is noted there is no evidence of wheezing rhonchi or rales CARDIOVASCULAR: Regular rate and rhythm noted there no murmurs rubs or gallops normal S1 normal S2. GASTROINTESTINAL: The abdomen is soft. Abdomen is nontender. PELVIS: The Pelvis is stable. No tenderness to palpation is noted. BACK: No midline tenderness or or step-off noted range of motion in flexion extension as well as rotation no signs of muscle spasm noted MUSCULOSKELETAL/EXTREMITIES: There is no evidence of gross deformity full range of motion is noted in the hips and shoulders. SKIN: There is no obvious evidence of any rash. There are no petechiae, pallor o r cyanosis noted. NEUROLOGIC: Patient is awake alert and oriented x3 strength is symmetric Course Reevaluation(s) Reevaluation #1: Patient is resting in no distress; patient was given IV Lasix. Case was discussed with the hospitalist for admission Time: 03:30 Administered Medications Discontinued Medications Furosemide (Furosemide 40 Mg/4 Ml Vial) 40 mg IV ONE ONE Stop: 01/11/22 02:19 Last Admin: 01/11/22 02:57 Dose: 40 mg Documented By: MARYJANE Medical Decision Making Medical Records Attestation: I reviewed the patient's medical records. Home Medications Current Medication List: was personally reviewed by me Laboratory Data Attestation: I reviewed the patient's lab results. Result diagrams: 01/11/22 01:30 01/11/22 01:30 Lab Results 01/11/22 01/11/22 01/11/22 Range/Units 01:30 01:30 01:30 WBC 8.28 (4.8-10.8) K/ul RBC 3.97 L (4.63-6.08) M/uL Hgb 13.5 L (14.0-18.0) g/dl Hct 40.3 (40.1-51.0) % MCV 101.5 H (80.0-100.0) fL MCH 34.0 (25.0-34.0) pg MCHC 33.5 (32.0-36.0) g/dL RDW Std Deviation 53.5 H (36.4-46.3) fL RDW Coeff of Marilynn 14.3 (11.5-14.5) % Plt Count 197 (130-400) K/uL MPV 9.7 (9.4-12.4) fL Immature Gran % (Auto) 0.2 % Neut % (Auto) 73.2 % Lymph % (Auto) 9.9 % [place] % (Auto) 14.5 % Eos % (Auto) 1.4 % Baso % (Auto) 0.8 % Neut # (Auto) 6.05 (1.4-6.5) K/uL Lymph # (Auto) 0.82 L (1.2-3.4) K/uL [place] # (Auto) 1.20 H (0.24-0.82) K/uL Eos # (Auto) 0.12 (0-0.50) K/uL Baso # (Auto) 0.07 (0-0.2) K/uL Immature Gran # (Auto) 0.02 (0.00-0.02) K/uL PT 14.7 H (9.0-12.0) Seconds INR 1.4 H (0.9-1.1) Sodium 140 (136-145) mmol/L Potassium 4.1 (3.5-5.1) mmol/L Chloride 107 (98-107) mmol/L Carbon Dioxide 25 (21-32) mmol/L Anion Gap 8 (3-11) BUN 26 H (6-23) mg/dl Creatinine 1.59 H (0.6-1.4) mg/dl Est Cr Clr Drug Dosing Not Reportable Est GFR ( Amer) 46.8 ml/min Est GFR (Non-Af Amer) 40.4 ml/min BUN/Creatinine Ratio 16.4 (10-20) Glucose 127 H (70-99(Fasting)) mg/dl Calcium 9.1 (8.5-10.1) mg/dl Total Bilirubin 0.8 (0.2-1.0) mg/dl AST 60 H (13-39) U/L ALT 48 (7-52) U/L Alkaline Phosphatase 96 (34-104) U/L Troponin I High Sens 52.6 H* D (0-20) pg/ml B-Natriuretic Peptide (0-100) pg/ml Total Protein 6.8 (6.0-8.3) gm/dl Albumin 4.0 (3.4-5.0) gm/dl Globulin 2.8 (2.5-4.0) gm/dl Albumin/Globulin Ratio 1.4 (0.9-2) SARS-CoV-2, RNA, NAAT (NEGATIVE) 01/11/22 01/11/22 Range/Units 01:30 02:08 WBC (4.8-10.8) K/ul RBC (4.63-6.08) M/uL Hgb (14.0-18.0) g/dl Hct (40.1-51.0) % MCV (80.0-100.0) fL MCH (25.0-34.0) pg MCHC (32.0-36.0) g/dL RDW Std Deviation (36.4-46.3) fL RDW Coeff of Marilynn (11.5-14.5) % Plt Count (130-400) K/uL MPV (9.4-12.4) fL Immature Gran % (Auto) % Neut % (Auto) % Lymph % (Auto) % [place] % (Auto) % Eos % (Auto) % Baso % (Auto) % Neut # (Auto) (1.4-6.5) K/uL Lymph # (Auto) (1.2-3.4) K/uL [place] # (Auto) (0.24-0.82) K/uL Eos # (Auto) (0-0.50) K/uL Baso # (Auto) (0-0.2) K/uL Immature Gran # (Auto) (0.00-0.02) K/uL PT (9.0-12.0) Seconds INR (0.9-1.1) Sodium (136-145) mmol/L Potassium (3.5-5.1) mmol/L Chloride (98-107) mmol/L Carbon Dioxide (21-32) mmol/L Anion Gap (3-11) BUN (6-23) mg/dl Creatinine (0.6-1.4) mg/dl Est Cr Clr Drug Dosing Est GFR ( Amer) ml/min Est GFR (Non-Af Amer) ml/min BUN/Creatinine Ratio (10-20) Glucose (70-99(Fasting)) mg/dl Calcium (8.5-10.1) mg/dl Total Bilirubin (0.2-1.0) mg/dl AST (13-39) U/L ALT (7-52) U/L Alkaline Phosphatase (34-104) U/L Troponin I High Sens (0-20) pg/ml B-Natriuretic Peptide 925 H (0-100) pg/ml Total Protein (6.0-8.3) gm/dl Albumin (3.4-5.0) gm/dl Globulin (2.5-4.0) gm/dl Albumin/Globulin Ratio (0.9-2) SARS-CoV-2, RNA, NAAT NEGATIVE (NEGATIVE) Imaging Data Attestation: I personally reviewed and interpreted this imaging study as follows: My Impression: Chest x-ray interpreted by me cardiomegaly and mild CHF ECG Data Attestation: I personally reviewed and interpreted this ECG as follows: Additional Comments: EKG interpreted by me atrial fibrillation rate of 61 incomplete right bundle branch block occasional PVC no obvious ST segment elevation or depression normal axis MDM Narrative Medical decision making differential diagnosis included CHF, COVID, metabolic derangement, dehydration, electrolyte abnormality, diarrhea. Plan is to check labs, EKG, chest x-ray, COVID swab. Patient was evaluated for shortness of breath with a history of CHF. Patient has an elevated BNP and an elevated troponin. Patient has a nonischemic EKG. Patient was given IV Lasix. I suspect that the patient's conditions are currently due to CHF. Patient is COVID-negative. The case was discussed with the hospitalist for admission for CHF generalized weakness and dyspnea. Impression & Plan CHF (congestive heart failure), Diarrhea Discharge Plan Visit Data Chief Complaint: Shortness of Breath/Dyspnea Stated Complaint: SHORTNESS OF BREATH,DIZZINESS,FATIGUE,DIARRHEA ED Provider: Cosme Toney Discharge Problem: CHF (congestive heart failure), Diarrhea Patient Disposition: Being Evaluated by Hospitalist Forms Stand Alone Forms: My [facility] Prescriptions Prescriptions: No Action Eliquis 5 mg tablet 2.5 mg PO BID isosorbide mononitrate 30 mg tablet extended release 24 hr 30 mg PO QAM Qty: 30 5RF cyanocobalamin (vitamin B-12) 100 mcg tablet 100 mcg PO QAM rosuvastatin 40 mg tablet 40 mg PO PM metoprolol tartrate 50 mg tablet 50 mg PO BID Qty: 180 3RF nitroglycerin 0.4 mg tablet, sublingual 0.4 mg sublingual Q5M PRN (Reason: chest pain) Qty: 1 0RF Rx Instructions: max 3 doses in 15 minutes omeprazole magnesium [Prilosec OTC] 20 mg Tablet,Delayed Release (Dr/Ec) 20 mg PO QAM Label Comments: patient's son thinks he took all his medications on 03/13/19 acetaminophen [Tylenol] 325 mg Tablet 650 mg PO DIRECTED PRN (Reason: PAIN/FEVER) diltiazem HCl 120 mg capsule,extended release 24hr 120 mg PO PM aspirin 325 mg Tablet,Delayed Release (Dr/Ec) 325 mg PO DAILY tamsulosin 0.4 mg capsule 0.4 mg PO DAILY cholecalciferol (vitamin D3) [Vitamin D3] 25 mcg (1,000 unit) Tablet 25 mcg PO DAILY furosemide 40 mg tablet 40 mg PO BID Qty: 60 0RF Referrals Referrals: PCP,NO [Primary Care Provider] -
[2022-01-11] MEDS ORDERED: FUROSEMIDE 40 MG/4 ML VIAL IV ONE (02:18)
[2022-01-11 02:55] LABS: Troponin I High Sensitivity 52.6 pg/ml (0-20)
[2022-01-11 02:59] LABS: Alanine Aminotransferase 48 U/L (7-52); Albumin Globulin Ratio 1.4 (0.9-2); Alkaline Phosphatase 96 U/L (34-104); Anion Gap 8 (3-11); Aspartate Aminotransferase 60 U/L (13-39); BUN Creatinine Ratio 16.4 (10-20); Bilirubin,Total 0.8 mg/dl (0.2-1.0); Blood Urea Nitrogen 26 mg/dl (6-23); Calcium 9.1 mg/dl (8.5-10.1); Carbon Dioxide 25 mmol/L (21-32); Chloride 107 mmol/L (98-107); Est GFR (African American) 46.8 ml/min; Est GFR (Non-African American) 40.4 ml/min; Globulin 2.8 gm/dl (2.5-4.0); Glucose 127 mg/dl (70-99(Fasting)); Potassium 4.1 mmol/L (3.5-5.1); Sodium 140 mmol/L (136-145); Total Protein 6.8 gm/dl (6.0-8.3)
--- NOTE | 2022-01-11 04:34 | History & Physical Report ---
Date of Service January 11, 2022 Assessment & Plan (1) Acute on chronic heart failure with preserved ejection fraction (HFpEF): Plan: Acute on chronic HFpEF/hypertension/CAD/atrial fibrillation- The patient will be admitted to telemetry for serial cardiac enzymes, serial EKG's, cardiac rhythm monitoring Most recent echo performed on 09/08/2021 with ejection fraction 55%, severe concentric LVH, severe pulmonary hypertension, mitral regurgitation and tricuspid regurgitation. Troponin 52.6, with follow-up as ordered Patient received furosemide 40 mg IV in ED. Furosemide 40 mg IV twice daily Follow serial BMP and magnesium levels Continue aspirin, diltiazem HCl 120 mg every evening, isosorbide mononitrate extended release 30 mg every morning, metoprolol tartrate 50 mg p.o. twice daily, and nitroglycerin sublingual as needed Consult his physical laboratory assistant Dr. Trinidad (2) Pulmonary hypertension: (3) Elevated troponin: Plan: See above (4) Permanent atrial fibrillation: Plan: Continue Eliquis 2.5 mg p.o. twice daily (5) Chronic kidney disease: (6) CAD (coronary artery disease), [place] coronary artery: Plan: See above (7) Hypertension: Plan: See above (8) Hyperlipidemia: Plan: Continue rosuvastatin 40 mg every evening Check a fasting lipid panel (9) BPH with obstruction/lower urinary tract symptoms: Plan: Continue tamsulosin 0.4 mg in the evening (10) Anxiety: Plan: Lorazepam 0.5 mg IV at bedtime as needed History of Present Illness Chief Complaint: The patient presents to the emergency department with shortness of breath, dyspnea on exertion, lightheadedness and dizziness, along with generalized fatigue worsening over the past few days. He also reports a cough productive of dark sputum which has been developed since stopping smoking 1 month ago. Primary Care Provider: NO PCP The patient is an 81-year-old male with a past medical history including HFpEF, pulm hypertension, syncope, permanent atrial fibrillation, CKD, aortic insufficiency, mitral regurgitation, CAD, hypertension, hyperlipidemia, BPH with LUTS and anxiety. He presents with symptoms as noted above. Chest x-ray and emergency department was suggestive of CHF, patient received Lasix 40 mg IV, with good urine output. Abnormal laboratories: Hemoglobin 13.5, hematocrit 40.3, creatinine 1.59, INR 1.4, troponin 52.6, AST 60, BNP 925 Allergies Allergy/AdvReac Type Severity Reaction Status Date / Time No Known Allergies Allergy Verified 11/07/21 11:28 Home Medications Medication Instructions Recorded Confirmed Type omeprazole magnesium 20 mg 20 mg PO QAM 12/30/17 11/07/21 History tablet,delayed release (Prilosec OTC) rosuvastatin 40 mg tablet 40 mg PO PM 09/17/19 11/07/21 History cyanocobalamin (vitamin B-12) 100 100 mcg PO QAM 10/15/19 11/07/21 History mcg tablet isosorbide mononitrate 30 mg 30 mg PO QAM #30 tabs 06/22/20 11/07/21 Rx tablet,extended release 24 hr metoprolol tartrate 50 mg tablet 50 mg PO BID #180 tabs 09/16/20 11/07/21 Rx acetaminophen 325 mg tablet 650 mg PO DIRECTED PRN 10/03/20 11/07/21 History (Tylenol) PAIN/FEVER diltiazem HCl 120 mg 120 mg PO PM 02/25/21 11/07/21 History capsule,extended release 24 hr aspirin 325 mg tablet,delayed 325 mg PO DAILY 07/06/21 11/07/21 History release cholecalciferol (vitamin D3) 25 25 mcg PO DAILY 07/06/21 11/07/21 History mcg (1,000 unit) tablet (Vitamin D3) tamsulosin 0.4 mg capsule 0.4 mg PO DAILY 07/06/21 11/07/21 History apixaban 5 mg tablet (Eliquis) 2.5 mg PO BID 07/13/21 11/07/21 History furosemide 40 mg tablet 40 mg PO BID #60 tabs 07/23/21 11/07/21 Rx nitroglycerin 0.4 mg sublingual 0.4 mg sublingual Q5M PRN chest 10/28/21 11/07/21 Rx tablet pain #1 btl Past Med/Surg History Medical History Acute alteration in mental status Acute kidney injury Aortic insufficiency BPH with obstruction/lower urinary tract symptoms CAD (coronary artery disease), [place] coronary artery Chronic diastolic heart failure Chronic heart failure with preserved ejection fraction Chronic kidney disease Confusion Fall History of anesthesia reaction CONVULSIONS POST OP QUICK COMING AWAKE FROM CABG SURG 20 YRS AGO. DENIES SEIZURES, SAYS HE 'WOKE UP TOO QUICKLY' AND THEY PUT HIM BACK UNDER Hyperlipidemia Hypertension Mitral regurgitation Permanent atrial fibrillation Pulmonary hypertension Surgical History H/O colonoscopy S/P CABG x 2 S/P TURP Family History Brother Family history of esophageal cancer Mother , age 73 of a stroke and [place] Myocardial infarction Stroke Father , age 31 in a gas explosion No problems noted. 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 The review of systems is otherwise negative other than for that already noted above, and at least 10 systems have been reviewed. Physical Exam Physical Exam: The patient is awake, alert and oriented 3, well developed and well nourished, normocephalic and atraumatic, lying in bed and in no acute distress. HEENT--PERRL, EOMI, mucous membranes and oropharynx normal Neck--supple. No JVD. No bruits. Thyroid normal, trachea midline, no adenopathy. Heart--normal S1 and S2. No murmurs, rubs or gallops. Lungs--crackles at the bases bilaterally. No respiratory distress, no accessory muscle use. Abdomen--normal bowel sounds and soft. Nontender. Nondistended, no hernias or masses, no organomegaly. Extremities--no cyanosis or clubbing. No edema. Dermatologic--normal skin turgor, normal color, no abnormal lymph nodes, no rash. Neurologic--cranial nerves II through XII grossly intact. Rheumatologic--normal range of motion. Psychiatric--normal affect. Results & Data Results & Data ([facility]) Vital Signs (Past 12 Hours) Vital Signs Temp Pulse Resp BP Pulse Ox O2 Del Method O2 Flow Rate 01/11/22 04:00 75 14 98 01/11/22 03:50 73 21 97 01/11/22 03:40 74 21 98 01/11/22 03:30 74 20 97 01/11/22 03:20 67 19 94 01/11/22 03:10 81 34 H 87 L 01/11/22 03:00 60 24 94 01/11/22 02:50 77 33 H 94 01/11/22 02:40 64 22 93 01/11/22 02:30 68 23 92 01/11/22 02:20 71 27 H 92 01/11/22 02:10 74 18 96 01/11/22 02:00 69 25 H 92 01/11/22 01:50 81 25 H 97 01/11/22 01:40 79 25 H 93 01/11/22 01:33 76 35 H 01/11/22 01:20 70 33 H 92 01/11/22 01:16 64 28 H 90 Nasal Cannula 3 01/11/22 01:16 106/65 01/11/22 01:12 77 30 H 95 Nasal Cannula 2 01/11/22 01:21 Nasal Cannula 01/11/22 01:21 97 Nasal Cannula 01/11/22 01:21 91 Nasal Cannula 2 01/11/22 00:54 36.3 C L 73 22 122/70 92 Room Air Laboratory Results Laboratory Results WBC 8.28 K/ul (4.8-10.8) 01/11/22 01:30 RBC 3.97 M/uL (4.63-6.08) L 01/11/22 01:30 Hgb 13.5 g/dl (14.0-18.0) L 01/11/22 01:30 Hct 40.3 % (40.1-51.0) 01/11/22 01:30 MCV 101.5 fL (80.0-100.0) H 01/11/22 01:30 MCH 34.0 pg (25.0-34.0) 01/11/22 01:30 MCHC 33.5 g/dL (32.0-36.0) 01/11/22 01:30 RDW Std Deviation 53.5 fL (36.4-46.3) H 01/11/22 01:30 RDW Coeff of Marilynn 14.3 % (11.5-14.5) 01/11/22 01:30 Plt Count 197 K/uL (130-400) 01/11/22 01:30 MPV 9.7 fL (9.4-12.4) 01/11/22 01:30 Immature Gran % (Auto) 0.2 % 01/11/22 01:30 Neut % (Auto) 73.2 % 01/11/22 01:30 Lymph % (Auto) 9.9 % 01/11/22 01:30 [place] % (Auto) 14.5 % 01/11/22 01:30 Eos % (Auto) 1.4 % 01/11/22 01:30 Baso % (Auto) 0.8 % 01/11/22 01:30 Neut # (Auto) 6.05 K/uL (1.4-6.5) 01/11/22 01:30 Lymph # (Auto) 0.82 K/uL (1.2-3.4) L 01/11/22 01:30 [place] # (Auto) 1.20 K/uL (0.24-0.82) H 01/11/22 01:30 Eos # (Auto) 0.12 K/uL (0-0.50) 01/11/22 01:30 Baso # (Auto) 0.07 K/uL (0-0.2) 01/11/22 01:30 Immature Gran # (Auto) 0.02 K/uL (0.00-0.02) 01/11/22 01:30 PT 14.7 Seconds (9.0-12.0) H 01/11/22 01:30 INR 1.4 (0.9-1.1) H 01/11/22 01:30 Sodium 140 mmol/L (136-145) 01/11/22 01:30 Potassium 4.1 mmol/L (3.5-5.1) 01/11/22 01:30 Chloride 107 mmol/L (98-107) 01/11/22 01:30 Carbon Dioxide 25 mmol/L (21-32) 01/11/22 01:30 Anion Gap 8 (3-11) 01/11/22 01:30 BUN 26 mg/dl (6-23) H 01/11/22 01:30 Creatinine 1.59 mg/dl (0.6-1.4) H 01/11/22 01:30 Est Cr Clr Drug Dosing Not Reportable 01/11/22 01:30 Est GFR ( Amer) 46.8 ml/min 01/11/22 01:30 Est GFR (Non-Af Amer) 40.4 ml/min 01/11/22 01:30 BUN/Creatinine Ratio 16.4 (10-20) 01/11/22 01:30 Glucose 127 mg/dl (70-99(Fasting)) H 01/11/22 01:30 Calcium 9.1 mg/dl (8.5-10.1) 01/11/22 01:30 Total Bilirubin 0.8 mg/dl (0.2-1.0) 01/11/22 01:30 AST 60 U/L (13-39) H 01/11/22 01:30 ALT 48 U/L (7-52) 01/11/22 01:30 Alkaline Phosphatase 96 U/L (34-104) 01/11/22 01:30 Troponin I High Sens 52.6 pg/ml (0-20) H* D 01/11/22 01:30 B-Natriuretic Peptide 925 pg/ml (0-100) H 01/11/22 01:30 Total Protein 6.8 gm/dl (6.0-8.3) 01/11/22 01:30 Albumin 4.0 gm/dl (3.4-5.0) 01/11/22 01:30 Globulin 2.8 gm/dl (2.5-4.0) 01/11/22 01:30 Albumin/Globulin Ratio 1.4 (0.9-2) 01/11/22 01:30 SARS-CoV-2, RNA, NAAT NEGATIVE (NEGATIVE) 01/11/22 02:08 Code Status & VTE Plan Code Status Full code VTE Prophylaxis Plan VTE Prophylaxis will be ordered: Yes PG Care Time/CCT Total # of Minutes Spent Total Time Spent with Patient: Total time spent is greater than 50% in coordination of care (as documented) at patient's floor/unit and/or counseling patient: Coding Level of Care Code 50843 Initial Inpt Care Lvl 3 Diagnoses Acute on chronic heart failure with preserved ejection fraction (HFpEF) I50.33 Pulmonary hypertension I27.20 Elevated troponin R77.8 Permanent atrial fibrillation I48.21 Chronic kidney disease N18.9 CAD (coronary artery disease), [place] coronary artery I25.10 [place] vs. transplanted heart: [place] heart Associated angina: without angina Hypertension I10 Hypertension type: unspecified Hyperlipidemia E78.5 Hyperlipidemia type: unspecified BPH with obstruction/lower urinary tract symptoms N40.1; N13.8 Anxiety F41.9 (1) CAD (coronary artery disease), [place] coronary artery [place] vs. transplanted heart: [place] heart Associated angina: without angina Qualified Code(s): I25.10 - Atherosclerotic heart disease of [place] coronary artery without angina pectoris (2) Hypertension Hypertension type: unspecified Qualified Code(s): I10 - Essential (primary) hypertension (3) Hyperlipidemia Hyperlipidemia type: unspecified Qualified Code(s): E78.5 - Hyperlipidemia, unspecified
[2022-01-11] MEDS: LORazepam 2 MG/2 ML SYR ONE ×2 (04:53→05:00)
[2022-01-11] MEDS ORDERED: LORazepam 2 MG/2 ML SYR IV STA (04:58)
[2022-01-11] MEDS ORDERED: ONDANSETRON INJ 2 MG/ML 2 ML VIAL IV PRN (05:54)
[2022-01-11] MEDS ORDERED: NITROGLYCERIN SL 0.4 MG/TAB TAB SL PRN (05:54)
[2022-01-11] MEDS ORDERED: ACETAMINOPHEN 325 MG TAB PO PRN (05:54)
--- NOTE | 2022-01-11 08:14 | XRay Report ---
XR chest 1V portable HISTORY: Atypical Chest Pain COMPARISON: Chest 07/21/2021. FINDINGS: There are low lung volumes. No pneumothorax. No pleural effusions. The heart remains enlarg ed. There is mild central pulmonary vascular congestion without overt edema. No new focal lung consol idations to suggest a pneumonia. There are poststernotomy changes. IMPRESSION: Cardiomegaly with mild central pulmonary vascular congestion without overt edema. ACT 112: Negative or not required by law. Electronically signed by: Toi Maria M.D. 01/11/2022 8:13 AM
[2022-01-11] MEDS: TAMSULOSIN HCL 0.4 MG CAP PO SCH (09:00)
[2022-01-11] MEDS: PANTOprazole 40 MG TAB PO SCH (09:01)
[2022-01-11] MEDS: ASPIRIN 325 MG ECTAB PO SCH (09:01)
[2022-01-11] MEDS: APIXABAN 2.5 MG TAB PO SCH ×2 (09:01→20:58)
[2022-01-11] MEDS: CYANOCOBALAMIN (B-12) 100 MCG TABLET PO SCH (09:01)
[2022-01-11] MEDS: FUROSEMIDE 40 MG/4 ML VIAL IV SCH ×2 (09:01→16:26)
[2022-01-11] MEDS: ISOSORBIDE MONO EXTENDED REL 30 MG TABCR PO SCH (09:01)
[2022-01-11] MEDS: METOPROLOL TARTRATE 50 MG TAB PO SCH ×2 (09:01→20:58)
[2022-01-11] MEDS: CHOLECALCIFEROL 1,000 UNITS 25 MCG TAB PO SCH (09:01)
--- NOTE | 2022-01-11 09:48 | Cardiology Consultation ---
Date of Consultation January 11, 2022 Assessment & Plan (1) Acute on chronic heart failure with preserved ejection fraction (HFpEF): (2) Pulmonary hypertension: (3) Right heart failure with reduced right ventricular function: Mr. 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 Patient presented with increasedshortness of breath, worsening dyspnea on exertion, lightheadedness/dizziness, and generalized fatigue worsening over the preceding few days. He also described a cough productive of dark sputum (which began after he stopped smoking approximately 1 month ago). Additionally the p atient's body weight was by about 4-5 lb according to his home scales. On further questioning, the patient admits to having increased dietary salt intake. He states he has been craving pizza over the past couple of weeks so he ended up eating a pizza. He has been maintained on oral Lasix 40 mg every morning, 20 mg in the afternoon at home -- which has not been keeping his fluid weight down. Patient now receiving Lasix 40 mg IV b.i.d. and he has had increased urinary output. Patient denies any chest pain, heaviness, tightness, pressure, or discomfort. He denies any angina pectoris. He denies any exertional neck, jaw, back, or arm pain. His shortness of breath has definitely improved. He denies any palpitations, syncope, or near syncope. In the ER he was noted to be in rate controlled atrial fibrillation. His chest x-ray was consistent with cardiomegaly and central pulmonary vascular congestion and his BNP was elevated at 925 pg/mL. His initial troponin I was elevated 52.6 pg/mL and trended down to 45.9 pg/mL. He was hypoxic with an SpO2 of 87%, but is currently maintaining normal oxygen saturations on 6 L of supplemental oxygen via nasal cannula. Patient is currently in the PCU on telemetry monitoring. Patient is feeling significantly better and less short of breath at this time despite having a negative fluid balance of only 550 mL total. Patient's most recent ECHOCARDIOGRAM 09/08/21 shows: -- Normal LV systolic function with an LVEF of 55%. -- Severe concentric LVH. -- Dilated RV with reduced RV systolic function. -- Mild left atrial dilation, moderate right atrial dilation. -- Mild MR. -- Severe pulmonary hypertension, estimated RVSP of 68 mmHg. After patient is compensated from heart failure standpoint, it would be very helpful to have a right heart catheterization performed to evaluate filling pressures and classify his pulmonary hypertension. Recommend the followin. Continue IV Lasix 40 mg b.i.d. until his dry weight is achieved. 2. Strict 2 g low-sodium diet. 3. Fluid restriction. 4. Continue Diltiazem CD 120 mg daily. 5. Continue Lopressor 50 mg b.i.d.. 6. Continue Imdur ER 30 mg daily. 7. Monitor daily body weights. 8. Monitor I&O's. 9. Monitor renal function and electrolytes daily. (4) CAD (coronary artery disease), lo[place]ock coronary artery: (5) S/P CABG x 2: CAD s/p CABG x 2 Vessels (approximately 1999 or 2000 at [facility], CHOUDHARY to LAD, MITUL to RCA) -- asymptomatic. -- Elevated hs Troponin I likely secondary to severe concentric LVH, hypoxia, and acute exacerbation of heart failure. -- Further ischemic workup is not necessary at this time. 1. Continue Aspirin daily. 2. Continue Lopressor 50 mg b.i.d. 3. Continue Imdur ER 30 mg daily. 4. Continue Rosuvastatin 40 mg daily. 5. Continue SL NTG as needed. (6) Hypertension: -- His BP is elevated this morning, but overall during his hospitalization it has been controlled. -- Continue current antihypertensive regimen. (7) Hyperlipidemia: -- Continue Rosuvastatin 40 mg daily. (8) Permanent atrial fibrillation: Permanent Atrial Fibrillation, rate controlled and asymptomatic. [id number] is 5, so long-term anticoagulation is indicated. -- Continue Eliquis 2.5 mg b.i.d.. -- Continue Lopressor 50 mg b.i.d.. -- Continue Diltiazem CD 120 mg daily. History of Present Illness Reason for Consultation: 1. HFpEF, acute exacerbation. 2. Pulmonary Hypertension. Requesting Physician: Allen Shaffer Attending Physician: Kirt Greenwood MD History of Present Illness Mr. 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 He also described a cough productive of dark sputum (which began after he stopped smoking 1 month ago). Additionally the patient's body weight was by about 4-5 lb according to his home scales. On further questioning, the patient admits to having increased dietary salt intake. He states he has been craving pizza over the past couple of weeks so he ended up eating a pizza. He has been maintained on Lasix 40 mg every morning, 20 mg in the afternoon -- which has not been keeping his fluid weight down. Patient now receiving Lasix 40 mg IV b.i.d. and he has had increased urinary output. Patient denies any chest pain, heaviness, tightness, pressure, or discomfort. He denies any angina pectoris. He denies any exertional neck, jaw, back, or arm pain. His shortness of breath has definitely improved. He denies any palpitations, syncope, or near syncope. In the ER he was noted to be in rate controlled atrial fibrillation. His chest x-ray was consistent with cardiomegaly and central pulmonary vascular congestion and his BNP was elevated at 925 pg/mL. His initial troponin I was elevated 52.6 pg/mL and trended down to 45.9 pg/mL. He was hypoxic with an SpO2 of 87%, but is currently maintaining normal oxygen saturations on 6 L of supplemental oxygen via nasal cannula. Patient is currently in the PCU on telemetry monitoring. Patient states that he is feeling significantly better and less short of breath at this time despite having a negative fluid balance of only 550 mL total. ECHOCARDIOGRAM 09/08/21: -- Normal LV systolic function with an LVEF of 55%. -- Severe concentric LVH. -- Dilated RV with reduced RV systolic function. -- Mild left atrial dilation, moderate right atrial dilation. -- Mild MR. -- Severe pulmonary hypertension, estimated RVSP of 68 mmHg. Patient has had the following Cardiovascular Studies: 1. Cardiac Catheterization 11/06/1997 at [facility]: Proximal LAD 100%. Distal RCA 60%. Mid LCx 30%-40%. 2. CABG x 2 Vessels 1997 [facility]: LAD and RCA reportedly bypassed. 3. DC Cardioversion in : [facility], [place], operated by [facility]. Elective. Done for atrial fibrillation. 4.Echo 11/10/2018 normal LV systolic function. EF 55%-60%. Severe left atrial dilation. mild right atrial dilation. Moderate AI. Mild to moderate MR. RVSP 30-40. 5. Nuclear Stress 11/13/2018: Moderate sized area of base to mid inferolateral ischemia as well as a small area of distal anterolateral ischemia. EF 57%. Normal wall motion. 6. Cardiac Catheterization 11/18/2018: Ostial LAD 60% with high diagonal vessel noted prior to proximal LAD 100%. Remainder of LAD fills via CHOUDHARY. Mid LAD 60%-70%. Mid circumflex 99% followed by 100%. Small OM1 proximal 98% (too small for intervention). Dominant RCA. Proximal RCA 90%. Mid RCA 100%. CHOUDHARY to LAD patent. MITUL to RCA patent. 7. Echo 03/19/2020: Mildly dilated LV with normal systolic function. EF 55%- 60%. Hypokinesis of the inferolateral wall. Mild to moderate LVH. Mildly dilated RV with moderately reduced systolic function. Severe left atrial dilation. Severe MR. Mild AI. Mild to moderate TR. RVSP 80. 8. EVA 04/19/2020: Mildly dilated LV with normal systolic function. EF 55%- 60%. No LVH. Mildly dilated RV with normal systolic function. Severe left atrial dilation. More moderate than severe, central MR. Mild AI. Normal RVSP. 9. Echo 10/04/20: Mildly dilated LV with normal function. EF 55%-60%. No RWMA. Severe concentric LVH. Mildly dilated RV with reduced systolic function. Severe left atrial dilation. Moderate right atrial dilation. Mild aortic regurgitation. Moderate to severe MR. Moderate pulmonary hypertension. RVSP 53 mmHg. 10. Echo 07/06/21: Normal LV size and function. EF 55%-60%. No regional wall motion abnormalities. Severe concentric LVH. Moderate RV dilation with mildly reduced systolic function. Severe left. Moderate right atrial dilation. Mild AR. Moderate to severe MR. Moderate TR. Severe pulmonary hypertension. 11. PFT's 08/30/21: Normal spirometry and lung volumes with decreased diffusion capacity. HISTORICAL BACKGROUND: He was admitted on 11/10/2018 after taking 3 mg of Ativan and apparently had some degree of mental status change. During the hospitalization he received IV iron transfusion for iron deficient anemia. He was also noted to be in atrial fibrillation with rapid ventricular response. Rate control medications were adjusted. He was found to be in acute on chronic renal insufficiency and diuretic therapy was discontinued by primary service. His creatinine improved and returned towards baseline. Myocardial perfusion study was performed and was abnormal, specifically in the circumflex territory. Cardiac catheterization was recommended but he declined. He went home on isosorbide mononitrate, metoprolol tartrate, and diltiazem as part of his medical therapy. He was re-admitted on 11/17/2018. He presented with worsening shortness of breath since being discharged one day prior. He states that he would like to undergo cardiac catheterization and be done with it. Dr. Trinidad performed cardiac catheterization on 11/18/18 and he was found to have severe multivessel CAD. Medical therapy and further diuresis was recommended. He continued effective diuresis and was net - 6 L during his hospitalization. He was able to wean from supplemental oxygen. He was discharged to home on Lasix 40 mg daily on 11/20/18. He opted to be discharged without anticoagulation therapy. There has not been identified source of bleeding but his hemoglobin has been low down to 7.4 since January of 2018. He was admitted to [facility] from 03/14/19 through 03/18/19 for CHF exacerbation secondary to dietary indiscretion. He presented with shortness of breath, confusion, weakness, and 10+ lb weight gain. Patient continued to decompensate in the ER requiring mechanical ventilation. He was started on IV diuretics. Creatinine was elevated on admission at 3.5 mg/dL. This improved with diuretics. Patient had an adequate response. He was net negative 5 L and down 30 lbs (?) during admission. He was discharged home on Lasix 40 mg daily. Metoprolol was reduced to 50 mg daily. Lisinopril was held. Patient was admitted in September 2020 for weakness and falls. He was euvolemic. Continue Lasix 20 mg daily. Patient was admitted from 07/06/21 through 07/07/21 after a syncopal episode, likely secondary to volume depletion from gastroenteritis. Lasix was held on admission and he was gently rehydrated. Chronic hypoxia noted, patient declined O2 in the past. He was discharged on his home dose of Lasix 20 mg daily with an additional 20 mg PRN. Eliquis was reduced to 2.5 mg. He was evaluated in the ER on 08/22/21 for fall/syncopal episode. Studies were unremarkable. He was treated with 500 cc bolus and discharged to home. Patient was evaluated on 10/28/[address] Trinidad. He was euvolemic. He continued Lasix 40 mg in am/20 mg in pm. Mitral regurgitation is moderate. RVSP significantly elevated, consistent with pulmonary hypertension. Right heart cath recommended. Allergies Allergy/AdvReac Type Severity Reaction Status Date / Time No Known Allergies Allergy Verified 11/07/21 11:28 Home Medications Medication Instructions Recorded Confirmed Type omeprazole magnesium 20 mg 20 mg PO QAM 12/30/17 11/07/21 History tablet,delayed release (Prilosec OTC) rosuvastatin 40 mg tablet 40 mg PO PM 09/17/19 11/07/21 History cyanocobalamin (vitamin B-12) 100 100 mcg PO QAM 10/15/19 11/07/21 History mcg tablet isosorbide mononitrate 30 mg 30 mg PO QAM #30 tabs 06/22/20 11/07/21 Rx tablet,extended release 24 hr metoprolol tartrate 50 mg tablet 50 mg PO BID #180 tabs 09/16/20 11/07/21 Rx acetaminophen 325 mg tablet 650 mg PO DIRECTED PRN 10/03/20 11/07/21 History (Tylenol) PAIN/FEVER diltiazem HCl 120 mg 120 mg PO PM 02/25/21 11/07/21 History capsule,extended release 24 hr aspirin 325 mg tablet,delayed 325 mg PO DAILY 07/06/21 11/07/21 History release cholecalciferol (vitamin D3) 25 25 mcg PO DAILY 07/06/21 11/07/21 History mcg (1,000 unit) tablet (Vitamin D3) tamsulosin 0.4 mg capsule 0.4 mg PO DAILY 07/06/21 11/07/21 History apixaban 5 mg tablet (Eliquis) 2.5 mg PO BID 07/13/21 11/07/21 History furosemide 40 mg tablet 40 mg PO BID #60 tabs 07/23/21 11/07/21 Rx nitroglycerin 0.4 mg sublingual 0.4 mg sublingual Q5M PRN chest 10/28/21 11/07/21 Rx tablet pain #1 btl Patient History Medical History (Updated 01/11/22 @ 10:21 by Aidan Fairchild PA-C) Acute alteration in mental status Acute kidney injury Aortic insufficiency BPH with obstruction/lower urinary tract symptoms CAD (coronary artery disease), lovelock coronary artery Chronic diastolic heart failure Chronic heart failure with preserved ejection fraction Chronic kidney disease Confusion Fall History of anesthesia reaction CONVULSIONS POST OP QUICK COMING AWAKE FROM CABG SURG 20 YRS AGO. DENIES SEIZURES, SAYS HE 'WOKE UP TOO QUICKLY' AND THEY PUT HIM BACK UNDER Hyperlipidemia Hypertension Mitral regurgitation Permanent atrial fibrillation Pulmonary hypertension Surgical History (Updated 01/11/22 @ 10:21 by Aidan Fairchild PA-C) H/O colonoscopy S/P CABG x 2 S/P TURP Family History Brother Family history of esophageal cancer Mother , age 73 of a stroke and [place] Myocardial infarction Stroke Father , age 31 in a gas explosion No problems noted. 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 He has tried several medications in the past and the only thing that worked was lorazepam. Unfortunately he has a history of taking too much lorazepam and had mental status changes. 10 point ROS completed and is negative with the exception of what is mentioned in the HPI. Physical Exam Physical Exam: GENERAL: Patient in no acute distress. HEENT: Head is atraumatic, normocephalic. EOM's intact. Facies symmetric. No perioral cyanosis. NECK: No JVD. JVP is elevated. Carotid upstrokes are + 2 bilaterally without obvious bruits. CHEST/LUNGS: Scattered crackles, more prominent in bilateral bases. CVS: S1 and S2 are irregularly irregular with a V rate of 74 bpm. No obvious murmurs, gallops, or rubs. PMI is nonpalpable. No lifts, heaves, or thrills. No abdominal aortic or renal bruits. Well-healed median sternotomy scar noted. ABDOMINAL EXAM: Bowel sounds are present. No masses, organomegaly, or tenderness. EXTREMITIES: No clubbing or cyanosis. No edema. Intact radial pulses bilaterally. NEUROLOGIC EXAM: Patient is awake, alert, and oriented. Pleasant and cooperative. Answers questions appropriately. Speech is clear. Gait pattern was not assessed. SERVICE [employer] CONTACT: -- A-Fib in the 60's overnight, A-Fib in the 70's today. EKG 01/11/22: -- A-Fib with controlled ventricular response rate with 1 premature beat vs an aberrantly conducted beat. -- Incomplete RBBB. -- Abnormal EKG. Results & Data ([facility]) Vital Signs (Past 12 Hours) Vital Signs Temp Pulse Pulse Resp BP BP Pulse Ox 01/11/22 07:43 162/83 H 01/11/22 07:19 84 01/11/22 07:02 36.6 C 79 20 96 01/11/22 06:10 36.7 C 73 22 139/66 94 01/11/22 05:54 36.7 C 22 139/66 92 01/11/22 05:29 72 25 H 110/78 96 01/11/22 05:00 96 01/11/22 04:00 75 14 98 01/11/22 03:50 73 21 97 01/11/22 03:40 74 21 98 01/11/22 03:30 74 20 97 01/11/22 03:20 67 19 94 01/11/22 03:10 81 34 H 87 L 01/11/22 03:00 60 24 94 01/11/22 02:50 77 33 H 94 01/11/22 02:40 64 22 93 01/11/22 02:30 68 23 92 01/11/22 02:20 71 27 H 92 01/11/22 02:10 74 18 96 01/11/22 02:00 69 25 H 92 01/11/22 01:50 81 25 H 97 01/11/22 01:40 79 25 H 93 01/11/22 01:33 76 35 H 01/11/22 01:20 70 33 H 92 01/11/22 01:16 64 28 H 90 01/11/22 01:16 106/65 01/11/22 01:12 77 30 H 95 01/11/22 01:21 01/11/22 01:21 97 01/11/22 01:21 91 01/11/22 00:54 36.3 C L 73 22 122/70 92 O2 Del Method O2 Flow Rate 01/11/22 07:43 01/11/22 07:19 01/11/22 07:02 Nasal Cannula 6 01/11/22 06:10 Nasal Cannula, High Flow Nasal Cannula 01/11/22 05:54 Nasal Cannula 6 01/11/22 05:29 Nasal Cannula 5 01/11/22 05:00 Nasal Cannula 5 01/11/22 04:00 01/11/22 03:50 01/11/22 03:40 01/11/22 03:30 01/11/22 03:20 01/11/22 03:10 01/11/22 03:00 01/11/22 02:50 01/11/22 02:40 01/11/22 02:30 01/11/22 02:20 01/11/22 02:10 01/11/22 02:00 01/11/22 01:50 01/11/22 01:40 01/11/22 01:33 01/11/22 01:20 01/11/22 01:16 Nasal Cannula 3 01/11/22 01:16 01/11/22 01:12 Nasal Cannula 2 01/11/22 01:21 Nasal Cannula 01/11/22 01:21 Nasal Cannula 01/11/22 01:21 Nasal Cannula 2 01/11/22 00:54 Room Air Laboratory Results Laboratory Results - last 24 hr 01/11/22 01/11/22 01/11/22 01:30 01:30 01:30 WBC 8.28 RBC 3.97 L Hgb 13.5 L Hct 40.3 MCV 101.5 H MCH 34.0 MCHC 33.5 RDW Std Deviation 53.5 H RDW Coeff of Marilynn 14.3 Plt Count 197 MPV 9.7 Immature Gran % (Auto) 0.2 Neut % (Auto) 73.2 Lymph % (Auto) 9.9 [place] % (Auto) 14.5 Eos % (Auto) 1.4 Baso % (Auto) 0.8 Neut # (Auto) 6.05 Lymph # (Auto) 0.82 L [place] # (Auto) 1.20 H Eos # (Auto) 0.12 Baso # (Auto) 0.07 Immature Gran # (Auto) 0.02 PT 14.7 H INR 1.4 H Sodium 140 Potassium 4.1 Chloride 107 Carbon Dioxide 25 Anion Gap 8 BUN 26 H Creatinine 1.59 H Est Cr Clr Drug Dosing Not Reportable Est GFR ( Amer) 46.8 Est GFR (Non-Af Amer) 40.4 BUN/Creatinine Ratio 16.4 Glucose 127 H Calcium 9.1 Total Bilirubin 0.8 AST 60 H ALT 48 Alkaline Phosphatase 96 Troponin I High Sens 52.6 H* D B-Natriuretic Peptide Total Protein 6.8 Albumin 4.0 Globulin 2.8 Albumin/Globulin Ratio 1.4 SARS-CoV-2, RNA, NAAT 01/11/22 01/11/22 01/11/22 01:30 02:08 07:10 WBC RBC Hgb Hct MCV MCH MCHC RDW Std Deviation RDW Coeff of Marilynn Plt Count MPV Immature Gran % (Auto) Neut % (Auto) Lymph % (Auto) [place] % (Auto) Eos % (Auto) Baso % (Auto) Neut # (Auto) Lymph # (Auto) [place] # (Auto) Eos # (Auto) Baso # (Auto) Immature Gran # (Auto) PT INR Sodium Potassium Chloride Carbon Dioxide Anion Gap BUN Creatinine Est Cr Clr Drug Dosing Est GFR ( Amer) Est GFR (Non-Af Amer) BUN/Creatinine Ratio Glucose Calcium Total Bilirubin AST ALT Alkaline Phosphatase Troponin I High Sens 45.9 H B-Natriuretic Peptide 925 H Total Protein Albumin Globulin Albumin/Globulin Ratio SARS-CoV-2, RNA, NAAT NEGATIVE Diagnostic Findings CXR 01/11/22: There are low lung volumes. No pneumothorax. No pleural effusions. The heart remains enlarged. There is mild central pulmonary vascular congestion without overt edema. No new focal lung consolidations to suggest a pneumonia. There are poststernotomy changes. IMPRESSION: Cardiomegaly with mild central pulmonary vascular congestion without overt edema. Medications Administered Medications omeprazole magnesium 20 mg tablet,delayed release (Prilosec OTC) 20 mg PO QAM 12/30/17 [History Confirmed 11/07/21] rosuvastatin 40 mg tablet 40 mg PO PM 09/17/19 [History Confirmed 11/07/21] cyanocobalamin (vitamin B-12) 100 mcg tablet 100 mcg PO QAM 10/15/19 [History Confirmed 11/07/21] isosorbide mononitrate 30 mg tablet,extended release 24 hr 30 mg PO QAM #30 tabs 06/22/20 [Rx Confirmed 11/07/21] metoprolol tartrate 50 mg tablet 50 mg PO BID #180 tabs 09/16/20 [Rx Confirmed 11/07/21] acetaminophen 325 mg tablet (Tylenol) 650 mg PO DIRECTED PRN PAIN/FEVER 10/03/20 [History Confirmed 11/07/21] diltiazem HCl 120 mg capsule,extended release 24 hr 120 mg PO PM 02/25/21 [History Confirmed 11/07/21] aspirin 325 mg tablet,delayed release 325 mg PO DAILY 07/06/21 [History Confirmed 11/07/21] cholecalciferol (vitamin D3) 25 mcg (1,000 unit) tablet (Vitamin D3) 25 mcg PO DAILY 07/06/21 [History Confirmed 11/07/21] tamsulosin 0.4 mg capsule 0.4 mg PO DAILY 07/06/21 [History Confirmed 11/07/21] apixaban 5 mg tablet (Eliquis) 2.5 mg PO BID 07/13/21 [History Confirmed 11/07/21] furosemide 40 mg tablet 40 mg PO BID #60 tabs 07/23/21 [Rx Confirmed 11/07/21] nitroglycerin 0.4 mg sublingual tablet 0.4 mg sublingual Q5M PRN chest pain #1 btl 10/28/21 [Rx Confirmed 11/07/21] Home Medications Acetaminophen (Acetaminophen 325 Mg Tab) 650 mg PO Q4H PRN PRN Reason: Pain or Fever Stop: 02/10/22 05:53 Apixaban (Apixaban 2.5 Mg Tab) 2.5 mg PO BID TROY Stop: 02/10/22 08:59 Last Admin: 01/11/22 09:01 Dose: 2.5 mg Aspirin (Aspirin 325 Mg Ectab) 325 mg PO DAILY TROY Stop: 02/10/22 08:59 Last Admin: 01/11/22 09:01 Dose: 325 mg Cyanocobalamin (Cyanocobalamin (B-12) 100 Mcg Tablet) 100 mcg PO QAM TROY Stop: 02/10/22 08:59 Last Admin: 01/11/22 09:01 Dose: 100 mcg Diltiazem HCl (Diltiazem Hcl 120 Mg Capcr) 120 mg PO PM TROY Stop: 02/10/22 20:59 Furosemide (Furosemide 40 Mg/4 Ml Vial) 40 mg IV [id number] [facility] Stop: 02/10/22 08:59 Last Admin: 01/11/22 09:01 Dose: 40 mg Isosorbide Mononitrate (Isosorbide [place] Extended Rel 30 Mg Tabcr) 30 mg PO QAM TROY Stop: 02/10/22 08:59 Last Admin: 01/11/22 09:01 Dose: 30 mg Metoprolol Tartrate (Metoprolol Tartrate 50 Mg Tab) 50 mg PO BID TROY Stop: 02/10/22 08:59 Last Admin: 01/11/22 09:01 Dose: 50 mg Nitroglycerin (Nitroglycerin Sl 0.4 Mg/Tab Tab) 0.4 mg SL Q5M PRN PRN Reason: chest pain Stop: 02/10/22 05:53 Ondansetron HCl (Ondansetron Inj 2 Mg/Ml 2 Ml Vial) 4 mg IV Q6H PRN PRN Reason: Nausea Stop: 02/10/22 05:53 Pantoprazole Sodium (Pantoprazole 40 Mg Tab) 40 mg PO QAM TROY Stop: 02/10/22 08:59 Last Admin: 01/11/22 09:01 Dose: 40 mg Rosuvastatin Calcium (Rosuvastatin Calcium 20 Mg Tab) 40 mg PO PM TROY Stop: 02/10/22 20:59 Tamsulosin HCl (Tamsulosin Hcl 0.4 Mg Cap) 0.4 mg PO DAILY TROY Stop: 02/10/22 08:59 Last Admin: 01/11/22 09:00 Dose: 0.4 mg Vitamin D (Cholecalciferol 1,000 Units 25 Mcg Tab) 1,000 units PO DAILY TROY Stop: 02/10/22 08:59 Last Admin: 01/11/22 09:01 Dose: 1,000 units PG Care Time/CCT Total # of Minutes Spent Total Time Spent with Patient: Total time spent is greater than 50% in coordination of care (as documented) at patient's floor/unit and/or counseling patient:38 [place] [address] Initial Inpt Care Lvl 2 Patient Type Established History Comprehensive Exam Comprehensive Medical Decision Making Moderate Complexity Diagnoses Acute on chronic heart failure with preserved ejection fraction (HFpEF) I50.33 Pulmonary hypertension I27.20 Right heart failure with reduced right ventricular function I50.810 CAD (coronary artery disease), [place] coronary artery I25.10 [place] vs. transplanted heart: [place] heart Associated angina: without angina S/P CABG x 2 Z95.1 Hypertension I10 Hypertension type: unspecified Hyperlipidemia E78.5 Hyperlipidemia type: unspecified Permanent atrial fibrillation I48.21 Time Spent (min) 62 (1) CAD (coronary artery disease), [place] coronary artery [place] vs. transplanted heart: [place] heart Associated angina: without angina Qualified Code(s): I25.10 - Atherosclerotic heart disease of [place] coronary artery without angina pectoris (2) Hypertension Hypertension type: unspecified Qualified Code(s): I10 - Essential (primary) hypertension (3) Hyperlipidemia Hyperlipidemia type: unspecified Qualified Code(s): E78.5 - Hyperlipidemia, unspecified
[2022-01-11] MEDS ORDERED: Flu Vaccine-High Dose (Fluzone-HD) PF 65+ 0.7mL SYR IM ONE (12:00)
[2022-01-11] MEDS ORDERED: PNEUMOCOCCAL Polysaccharide Vaccine 25mcg/0.5mL vial/Syr IM ONE (12:00)
--- NOTE | 2022-01-11 14:31 | Electrocardiogram Report ---
Test Reason : Blood Pressure : / mmHG Vent. Rate : 061 BPM Atrial Rate : 357 BPM P-R Int : 000 ms QRS Dur : 096 ms QT Int : 428 ms P-R-T Axes : 000 -10 063 degrees QTc Int : 430 ms Atrial fibrillation with premature ventricular or aberrantly conducted complexes Incomplete right bundle branch block Poor R wave progression, consider anterior DE vs. lead placement vs. LVH Nonspecific T wave abnormality Abnormal ECG When compared with ECG of 22-AUG-2021 07:20, Nonspecific T wave abnormality no longer evident in Inferior leads T wave inversion less evident in Anterior leads Nonspecific T wave abnormality now evident in Lateral leads Confirmed by Kirt Greenwood ([id number]) on 01/11/2022 2:31:16 PM Referred By: REFERRED SELF Confirmed By:Kirt Greenwood
[2022-01-11] MEDS: ROSUVASTATIN CALCIUM 20 MG TAB PO SCH (20:57)
[2022-01-11] MEDS: dilTIAZem HCL 120 MG CAPCR PO SCH (20:58)
[2022-01-12] MEDS: CYANOCOBALAMIN (B-12) 100 MCG TABLET PO SCH (09:00)
[2022-01-12] MEDS: ISOSORBIDE MONO EXTENDED REL 30 MG TABCR PO SCH (09:00)
[2022-01-12] MEDS: TAMSULOSIN HCL 0.4 MG CAP PO SCH (09:00)
[2022-01-12] MEDS: PANTOprazole 40 MG TAB PO SCH (09:00)
[2022-01-12] MEDS: METOPROLOL TARTRATE 50 MG TAB PO SCH ×2 (09:00→20:47)
[2022-01-12] MEDS: FUROSEMIDE 40 MG/4 ML VIAL IV SCH ×2 (09:01→17:39)
[2022-01-12] MEDS: ASPIRIN 325 MG ECTAB PO SCH (09:01)
[2022-01-12] MEDS: APIXABAN 2.5 MG TAB PO SCH ×2 (09:01→20:47)
[2022-01-12] MEDS: CHOLECALCIFEROL 1,000 UNITS 25 MCG TAB PO SCH (09:01)
[2022-01-12] MEDS ORDERED: SODIUM CHLORIDE 0.65% NA SOLN 45 ML (OCEAN) PRN (09:30)
[2022-01-12 09:40] LABS: BUN Creatinine Ratio 14.7 (10-20); Calcium 8.9 mg/dl (8.5-10.1); Creatinine Clr Calc Pharmacy 49.2 ml/min; Est GFR (African American) 56.6 ml/min; Est GFR (Non-African American) 48.8 ml/min; Magnesium 2.2 mg/dl (1.7-2.4); Potassium 3.7 mmol/L (3.5-5.1)
--- NOTE | 2022-01-12 10:16 | Hospitalist Progress Note ---
Date of Service January 12, 2022 Assessment & Plan (1) Acute on chronic heart failure with preserved ejection fraction (HFpEF): Plan: Acute on chronic HFpEF/hypertension/CAD/atrial fibrillation- The patient will be admitted to telemetry for serial cardiac enzymes, serial EKG's, cardiac rhythm monitoring Most recent echo performed on 09/08/2021 with ejection fraction 55%, severe concentric LVH, severe pulmonary hypertension, mitral regurgitation and tricuspid regurgitation. Troponin 52.6 stable Follow serial BMP and magnesium levels Continue aspirin, diltiazem HCl 120 mg every evening, isosorbide mononitrate extended release 30 mg every morning, metoprolol tartrate 50 mg p.o. twice daily, and nitroglycerin sublingual as needed Furosemide 40 mg IV twice daily - additional 40mg IV today to aim 1.5 - 2L / day. -ve 1305ml yesterday. Appreciate cardiology consultation (2) Pulmonary hypertension: (3) Elevated troponin: Plan: See above (4) Permanent atrial fibrillation: Plan: Continue Eliquis 2.5 mg p.o. twice daily (5) Chronic kidney disease: (6) CAD (coronary artery disease), [place] coronary artery: Plan: See above (7) Hypertension: Plan: See above (8) Hyperlipidemia: Plan: Continue rosuvastatin 40 mg every evening (9) BPH with obstruction/lower urinary tract symptoms: Plan: Continue tamsulosin 0.4 mg in the evening Plan VTE Prophylaxis - Eliquis Diet - Low Na, fluid restrict 1500ml, heart healthy Disposition - stable for downgrade to med/tele Admission and Anticipated Discharge Date Admission Date: January 11, 2022 Subjective Patient on oxygen only intermittently at home but really unsure what he is on. Per last 2 step in July patient was on room air at rest. He reports very intermittely using it at home just when he thinks he needs it rather than aiming towards a certain O2 saturation. He reports being close to his baseline currently and willing to stay for now but keen to go home. Review of Systems Review of Systems: All systems reviewed & are unremarkable except as noted in Subjective Physical Exam Constitutional: WD/WN, vitals as above ENMT: external ear and nose normal, oropharynx normal Respiratory: normal respiratory effort; no respiratory distress Auscultation: + crackles (bibasal); breath sounds present, no diminished lung sounds, no rales, no rhonchi and no wheezes Cardiovascular: Rate/Rhythm: regular rate and + irregularly irregular Heart Sounds: no murmur Extremities: normal capillary refill and + pedal edema (2+ b/l equal edema); no calf tenderness Gastrointestinal (Abdomen): normal bowel sounds, soft, nontender, no hepatosplenomegaly Musculoskeletal: no cyanosis or clubbing, extremities motor strength 5/5 Skin: no rashes, warm and dry Neurologic: moves all extremities and awake; not confused Psychiatric: A+Ox3, euthymic affect Results & Data Results & Data ([facility]) Vital Signs (Past 12 Hours) Vital Signs Temp Pulse Pulse Resp BP BP Pulse Ox 01/12/22 07:25 36.6 C 68 18 110/62 91 01/12/22 07:10 36.8 C 76 20 128/68 93 01/12/22 03:28 36.9 C 66 20 140/76 94 01/11/22 23:01 36.4 C L 79 22 139/63 94 O2 Del Method O2 Flow Rate 01/12/22 07:25 High Flow Nasal Cannula 5 01/12/22 07:10 Nasal Cannula 5 01/12/22 03:28 High Flow Nasal Cannula 5 01/11/22 23:01 Nasal Cannula 5 PG Care Time/CCT Total # of Minutes Spent Total Time Spent with Patient: Total time spent is greater than 50% in coordination of care (as documented) at patient's floor/unit and/or counseling patient: Coding Level of Care Code 25205 Subseq Hosp Care Lvl 2 Diagnoses Acute on chronic heart failure with preserved ejection fraction (HFpEF) I50.33 Pulmonary hypertension I27.20 Elevated troponin R77.8 Permanent atrial fibrillation I48.21 Chronic kidney disease N18.9 CAD (coronary artery disease), [place] coronary artery I25.10 Associated angina: without angina [place] vs. transplanted heart: [place] heart Hypertension I10 Hypertension type: unspecified Hyperlipidemia E78.5 Hyperlipidemia type: unspecified BPH with obstruction/lower urinary tract symptoms N40.1; N13.8 (1) Hyperlipidemia Hyperlipidemia type: unspecified Qualified Code(s): E78.5 - Hyperlipidemia, unspecified (2) CAD (coronary artery disease), [place] coronary artery Associated angina: without angina [place] vs. transplanted heart: [place] heart Qualified Code(s): I25.10 - Atherosclerotic heart disease of [place] coronary artery without angina pectoris (3) Hypertension Hypertension type: unspecified Qualified Code(s): I10 - Essential (primary) hypertension
[2022-01-12] MEDS ORDERED: FUROSEMIDE 40 MG/4 ML VIAL IV ONE (10:45)
--- NOTE | 2022-01-12 16:24 | Cardiology Progress Note ---
Date of Service January 12, 2022 Assessment & Plan (1) Acute on chronic heart failure with preserved ejection fraction (HFpEF): (2) CAD (coronary artery disease), [place] coronary artery: (3) S/P CABG x 2: (4) Right heart failure with reduced right ventricular function: (5) Pulmonary hypertension: (6) Permanent atrial fibrillation: (7) Mitral regurgitation: Plan ASSESSMENT/PLAN: 1. Acute on Chronic heart failure with preserved EF: He appears hypervolemic. Continue current diuretic regimen with a goal of 1-2 L net negative fluid balance daily. CHF exacerbation likely related to high sodium consumption per patient account. Low-sodium diet, less than 2000 mg daily. Daily weights. Strict I&Os while hospitalized. Follows in the Heart failure program. 2. Mitral regurgitation: Transesophageal echo (2020) demonstrated more moderate than severe regurgitation. Most recent echo demonstrated nonsignificant mitral regurgitation in August of 2021. Can continue to monitor over time. 3. Pulmonary hypertension: Has been noted to have severe pulmonary hypertension on echo in the past even when appeared euvolemic. Right heart catheterization has been recommended as an outpatient but he has declined thus far. We discussed once again today, and he states that he is willing to have it done, but not during this hospital stay. He was adamant about going home and having it done as an outpatient. If found to have severe pulmonary hypertension, unrelated to heart failure, would then recommend pulmonary consultation. 4. CAD s/p CABG x 2: No angina. He takes full aspirin due to chronic back pain. Continue high-intensity statin therapy and beta-kenji. Call for symptoms. 5. Aortic regurgitation: Non severe. Non severe on transesophageal echo. Monitor over time. 6. Atrial fibrillation: Permanent. Asymptomatic. Heart rate is reasonably controlled. Continue rate control strategy. Continue anticoagulation for stroke risk reduction. He is on Eliquis 2.5 mg twice daily for creatinine > 1.5 and age, however today creatinine is less than 1.5. If Cr stabilizes less than 1.5 consistently, would consider 5 mg twice daily. But given that his baseline is typically Cr > 1.5, would continue lower dose for now. 7. Hypertension: Blood pressure remains well controlled. No changes made. 8. Dyslipidemia: LDL has been well controlled. Goal LDL < 70. Continue high- intensity statin therapy. 9. Disposition: Patient's son, Dudley, was updated via telephone, with patient's request. Cardiology will continue to follow. Please call on-call perl programmer with any questions or concerns. Plan of care communicated with Dr. Friedman of the primary hospitalist service. Admission and Anticipated Discharge Date Admission Date: January 11, 2022 Subjective Patient was seen this afternoon. He states that his breathing is much improved. He is still on more supplemental oxygen compared to home. He denies chest pain, syncope, near-syncope, palpitations, edema, or bleeding. He admits that he had been consuming foods high in sodium content prior to hospitalization. His son was contacted via telephone, Dudley, and he also admits that his father was not maintaining a heart failure healthy diet. Patient states that he gained approximately 10 lb at home prior to admission. He has a one-to-one sitting at the bedside for reported confusion. She states that he has not seemed confused for this afternoon. Physical Exam Physical Exam: Gen.: No acute distress. Alert. HEENT: Anicteric sclera. Neck: [place] to the mandible sitting upright. Hepatic jugular reflux noted. Cardiac: No ventricular heave. Irregularly irregular, with normal heart rate. Normal S1-S2. No audible murmur. No rubs or gallops. Pulmonary: Decreased breath sounds bilaterally, otherwise clear to auscultation bilaterally without wheezes, rales, or rhonchi. Abdomen: Soft, nontender, nondistended, with normoactive bowel sounds. No bruits noted. Extremities: 2+ radial pulses bilaterally. 2+ posterior tibialis pulses bilaterally. No pitting edema. No cyanosis. Psychiatric: Affect appears appropriate. Results & Data ([facility]) Vital Signs (Past 12 Hours) Vital Signs Temp Pulse Pulse Resp BP BP Pulse Ox 01/12/22 16:03 36.6 C 67 20 104/60 97 01/12/22 15:04 93 01/12/22 11:00 36.6 C 76 20 122/60 96 01/12/22 08:00 01/12/22 07:25 36.6 C 68 18 110/62 91 01/12/22 07:10 36.8 C 76 20 128/68 93 O2 Del Method O2 Flow Rate 01/12/22 16:03 Nasal Cannula 4 01/12/22 15:04 01/12/22 11:00 High Flow Nasal Cannula 5 01/12/22 08:00 Nasal Cannula 5 01/12/22 07:25 High Flow Nasal Cannula 5 01/12/22 07:10 Nasal Cannula 5 Intake & Output 01/10/22 01/11/22 01/12/22 01/13/22 06:59 06:59 06:59 06:59 Intake Total 1670 / 1670 600 / 600 Output Total 200 / 350 2975 / 2975 1325 / 1325 Balance -200 / -350 -1305 / -1305 -725 / -725 Weight 210 lb 5.136 oz 208 lb 5.389 oz Laboratory Results Laboratory Results - last 24 hr 01/11/22 01/12/22 01/12/22 18:43 00:37 08:58 Sodium 141 Potassium 3.7 Chloride 101 Carbon Dioxide 35 H Anion Gap 5 BUN 20 Creatinine 1.36 Est Cr Clr Drug Dosing 49.2 Est GFR ( Amer) 56.6 Est GFR (Non-Af Amer) 48.8 BUN/Creatinine Ratio 14.7 Glucose 95 Calcium 8.9 Magnesium 2.2 Troponin I High Sens 41.2 H 38.0 H Diagnostic Findings Telemetry personally reviewed: Atrial fibrillation. Medications Administered Current Inpatient Medications Acetaminophen (Acetaminophen 325 Mg Tab) 650 mg PO Q4H PRN PRN Reason: Pain or Fever Stop: 02/10/22 05:53 Apixaban (Apixaban 2.5 Mg Tab) 2.5 mg PO BID [facility] Stop: 02/10/22 08:59 Last Admin: 01/12/22 09:01 Dose: 2.5 mg Aspirin (Aspirin 325 Mg Ectab) 325 mg PO DAILY [facility] Stop: 02/10/22 08:59 Last Admin: 01/12/22 09:01 Dose: 325 mg Cyanocobalamin (Cyanocobalamin (B-12) 100 Mcg Tablet) 100 mcg PO QAM [facility] Stop: 02/10/22 08:59 Last Admin: 01/12/22 09:00 Dose: 100 mcg Diltiazem HCl (Diltiazem Hcl 120 Mg Capcr) 120 mg PO PM [facility] Stop: 02/10/22 20:59 Last Admin: 01/11/22 20:58 Dose: 120 mg Furosemide (Furosemide 40 Mg/4 Ml Vial) 40 mg IV BID17 [facility] Stop: 02/10/22 08:59 Last Admin: 01/12/22 09:01 Dose: 40 mg Isosorbide Mononitrate (Isosorbide [place] Extended Rel 30 Mg Tabcr) 30 mg PO QAM [facility] Stop: 02/10/22 08:59 Last Admin: 01/12/22 09:00 Dose: 30 mg Metoprolol Tartrate (Metoprolol Tartrate 50 Mg Tab) 50 mg PO BID [facility] Stop: 02/10/22 08:59 Last Admin: 01/12/22 09:00 Dose: 50 mg Nitroglycerin (Nitroglycerin Sl 0.4 Mg/Tab Tab) 0.4 mg SL Q5M PRN PRN Reason: chest pain Stop: 02/10/22 05:53 Ondansetron HCl (Ondansetron Inj 2 Mg/Ml 2 Ml Vial) 4 mg IV Q6H PRN PRN Reason: Nausea Stop: 02/10/22 05:53 Pantoprazole Sodium (Pantoprazole 40 Mg Tab) 40 mg PO QAM TROY Stop: 02/10/22 08:59 Last Admin: 01/12/22 09:00 Dose: 40 mg Rosuvastatin Calcium (Rosuvastatin Calcium 20 Mg Tab) 40 mg PO PM [facility] Stop: 02/10/22 20:59 Last Admin: 01/11/22 20:57 Dose: 40 mg Sodium Chloride (Sodium Chloride 0.65% Na Soln 45 Ml ([place])) 2 sprays NA PRN PRN PRN Reason: dry nostrils Stop: 02/11/22 09:29 Last Admin: 01/12/22 09:50 Dose: 2 sprays Tamsulosin HCl (Tamsulosin Hcl 0.4 Mg Cap) 0.4 mg PO DAILY [facility] Stop: 02/10/22 08:59 Last Admin: 01/12/22 09:00 Dose: 0.4 mg Vitamin D (Cholecalciferol 1,000 Units 25 Mcg Tab) 1,000 units PO DAILY [facility] Stop: 02/10/22 08:59 Last Admin: 01/12/22 09:01 Dose: 1,000 units PG Care Time/CCT Total # of Minutes Spent Total Time Spent with Patient: Total time spent is greater than 50% in coordination of care (as documented) at patient's floor/unit and/or counseling patient: Coding Level of Care Code 81230 Subseq Hosp Care Lvl 3 Diagnoses Acute on chronic heart failure with preserved ejection fraction (HFpEF) I50.33 CAD (coronary artery disease), [place] coronary artery I25.10 [place] vs. transplanted heart: [place] heart Associated angina: without angina S/P CABG x 2 Z95.1 Right heart failure with reduced right ventricular function I50.810 Pulmonary hypertension I27.20 Permanent atrial fibrillation I48.21 Mitral regurgitation I34.0 (1) CAD (coronary artery disease), [place] coronary artery [place] vs. transplanted heart: [place] heart Associated angina: without angina Qualified Code(s): I25.10 - Atherosclerotic heart disease of [place] coronary artery without angina pectoris
[2022-01-12] MEDS: dilTIAZem HCL 120 MG CAPCR PO SCH (20:47)
[2022-01-12] MEDS: ROSUVASTATIN CALCIUM 20 MG TAB PO SCH (20:47)
[2022-01-12] MEDS: ZOLPIDEM TARTRATE 5 MG TAB PO PRN (23:28)
--- NOTE | 2022-01-13 05:38 | Electrocardiogram Report ---
Test Reason : Blood Pressure : / mmHG Vent. Rate : 071 BPM Atrial Rate : 312 BPM P-R Int : 000 ms QRS Dur : 098 ms QT Int : 440 ms P-R-T Axes : 000 006 006 degrees QTc Int : 478 ms Atrial fibrillation with premature ventricular or aberrantly conducted complexes Abnormal ECG When compared with ECG of 11-JAN-2022 01:39, No significant change was found Confirmed by Meet Trinidad ([id number]) on 01/13/2022 5:37:56 AM Referred By: REFERRED SELF Confirmed By:Meet Trinidad
[2022-01-13 08:36] LABS: BUN Creatinine Ratio 17.1 (10-20); Calcium 9.1 mg/dl (8.5-10.1); Creatinine Clr Calc Pharmacy 47.8 ml/min; Est GFR (African American) 54.6 ml/min; Est GFR (Non-African American) 47.1 ml/min; Potassium 3.3 mmol/L (3.5-5.1)
[2022-01-13] MEDS: APIXABAN 2.5 MG TAB PO SCH ×2 (08:37→20:41)
[2022-01-13] MEDS: METOPROLOL TARTRATE 50 MG TAB PO SCH ×2 (08:38→20:40)
[2022-01-13] MEDS: ISOSORBIDE MONO EXTENDED REL 30 MG TABCR PO SCH (08:38)
[2022-01-13] MEDS: CHOLECALCIFEROL 1,000 UNITS 25 MCG TAB PO SCH (08:38)
[2022-01-13] MEDS: TAMSULOSIN HCL 0.4 MG CAP PO SCH (08:38)
[2022-01-13] MEDS: CYANOCOBALAMIN (B-12) 100 MCG TABLET PO SCH (08:38)
[2022-01-13] MEDS: PANTOprazole 40 MG TAB PO SCH (08:38)
[2022-01-13] MEDS: ASPIRIN 325 MG ECTAB PO SCH (08:38)
[2022-01-13] MEDS ORDERED: FUROSEMIDE 40 MG/4 ML VIAL IV SCH (09:00)
--- NOTE | 2022-01-13 10:47 | Hospitalist Progress Note ---
Date of Service January 13, 2022 Assessment & Plan (1) Acute on chronic heart failure with preserved ejection fraction (HFpEF): Plan: Acute on chronic HFpEF/hypertension/CAD/atrial fibrillation- The patient will be admitted to telemetry for serial cardiac enzymes, serial EKG's, cardiac rhythm monitoring Most recent echo performed on 09/08/2021 with ejection fraction 55%, severe concentric LVH, severe pulmonary hypertension, mitral regurgitation and tricuspid regurgitation. Follow serial BMP and magnesium levels - unclear if BUN increasing because of rate of fluid loss or reaching euvolemic state Continue aspirin, diltiazem HCl 120 mg every evening, isosorbide mononitrate extended release 30 mg every morning, metoprolol tartrate 50 mg p.o. twice daily, and nitroglycerin sublingual as needed Furosemide 80 mg IV this morning, will reduce to 40mg IV this afternoon as appears to be approaching euvolemia. -ve 2025ml yesterday. If unable to get his oxygen back to baseline will need to consider alternative causes of his hypoxia Appreciate cardiology consultation - discussed with Jazmín Mcmullen today (2) Pulmonary hypertension: Plan: Right heart cath planned for inpatient/outpatient (3) Elevated troponin: Plan: See above (4) Permanent atrial fibrillation: Plan: Continue Eliquis 2.5 mg p.o. twice daily (5) Chronic kidney disease: (6) CAD (coronary artery disease), [place] coronary artery: Plan: See above (7) Hypertension: Plan: See above (8) Hyperlipidemia: Plan: Continue rosuvastatin 40 mg every evening (9) BPH with obstruction/lower urinary tract symptoms: Plan: Continue tamsulosin 0.4 mg in the evening Plan VTE Prophylaxis - Eliquis Diet - Low Na, fluid restrict 1500ml, heart healthy Disposition - continue on med/tele Admission and Anticipated Discharge Date Admission Date: January 11, 2022 Subjective Patient reports wanting to go home but has limited understanding he is still on 5LPM O2 when he has no oxygen requirement at rest on last 2 step and at home. Also cardiology considering right heart cath on Sunday if he requires to stay until then. Patient now willing to stay for heart cath if he needs ongoing diuresis through the weekend. He denies any chest pain and feels mostly at his baseline at this time. Review of Systems Review of Systems: All systems reviewed & are unremarkable except as noted in Subjective Physical Exam Constitutional: WD/WN, vitals as above ENMT: external ear and nose normal, oropharynx normal Respiratory: normal respiratory effort; no respiratory distress Auscultation: breath sounds present, no diminished lung sounds, no crackles, no rales, no rhonchi and no wheezes Cardiovascular: Rate/Rhythm: regular rate and + irregularly irregular Heart Sounds: no murmur Extremities: normal capillary refill and + pedal edema (trace b/l equal edema); no calf tenderness Gastrointestinal (Abdomen): normal bowel sounds, soft, nontender, no hepatosplenomegaly Musculoskeletal: no cyanosis or clubbing, extremities motor strength 5/5 Skin: no rashes, warm and dry Neurologic: moves all extremities and awake; not confused Psychiatric: A+Ox3, euthymic affect Results & Data Results & Data ([facility]) Vital Signs (Past 12 Hours) Vital Signs Temp Pulse Resp BP BP Pulse Ox O2 Del Method 01/13/22 07:58 36.8 C 68 18 115/61 93 High Flow Nasal Cannula 01/13/22 03:07 36.4 C L 70 20 126/61 98 01/12/22 22:48 36.3 C L 70 16 122/54 L 95 O2 Flow Rate 01/13/22 07:58 4 01/13/22 03:07 4 01/12/22 22:48 4 PG Care Time/CCT Total # of Minutes Spent Total Time Spent with Patient: Total time spent is greater than 50% in coordination of care (as documented) at patient's floor/unit and/or counseling patient: Coding Level of Care Code 55328 Subseq Hosp Care Lvl 2 Diagnoses Acute on chronic heart failure with preserved ejection fraction (HFpEF) I50.33 Pulmonary hypertension I27.20 Elevated troponin R77.8 Permanent atrial fibrillation I48.21 Chronic kidney disease N18.9 CAD (coronary artery disease), [place] coronary artery I25.10 Associated angina: without angina [place] vs. transplanted heart: [place] heart Hypertension I10 Hypertension type: unspecified Hyperlipidemia E78.5 Hyperlipidemia type: unspecified BPH with obstruction/lower urinary tract symptoms N40.1; N13.8 (1) Hyperlipidemia Hyperlipidemia type: unspecified Qualified Code(s): E78.5 - Hyperlipidemia, unspecified (2) CAD (coronary artery disease), [place] coronary artery Associated angina: without angina [place] vs. transplanted heart: [place] heart Qualified Code(s): I25.10 - Atherosclerotic heart disease of [place] coronary artery without angina pectoris (3) Hypertension Hypertension type: unspecified Qualified Code(s): I10 - Essential (primary) hypertension
[2022-01-13] MEDS ORDERED: POTASSIUM CHLORIDE CRTAB 20 MEQ TABCR PO STA (10:51)
--- NOTE | 2022-01-13 15:54 | Cardiology Progress Note ---
Date of Service January 13, 2022 Assessment & Plan (1) Acute on chronic heart failure with preserved ejection fraction (HFpEF): (2) CAD (coronary artery disease), [place] coronary artery: (3) S/P CABG x 2: (4) Right heart failure with reduced right ventricular function: (5) Pulmonary hypertension: (6) Permanent atrial fibrillation: (7) Mitral regurgitation: Plan ASSESSMENT/PLAN: 1. Acute on Chronic heart failure with preserved EF: He remains hypervolemic. He continues to require 4L of O2. Continue current diuretic regimen with a goal of 1-2 L net negative fluid balance daily. BUN bumped slightly today. If further increased tomorrow would consider transitioning back to PO regimen. CHF exacerbation likely related to high sodium consumption per patient account. Can likely resume his typical home dose of 40 mg po am/20 mg po pm. He increases to 40 mg BID as needed. If still hypoxic once optimized would consider alternate etiologies. Low-sodium diet, less than 2000 mg daily. Daily weights. Strict I&Os while hospitalized. Follows in the Heart failure program. 2. Mitral regurgitation: Transesophageal echo (2020) demonstrated more moderate than severe regurgitation. Most recent echo demonstrated nonsignificant mitral regurgitation in August of 2021. Can continue to monitor over time. 3. Pulmonary hypertension: Has been noted to have severe pulmonary hypertension on echo in the past even when appeared euvolemic. Right heart catheterization has been recommended as an outpatient but he has declined thus far. We discussed once again today, and he states that he is now willing to have it done. Will discuss with Dr. Trinidad. If patient remains hospitalized for ongoing diuresis could consider doing this Sunday. Can be done outpatient if he's ready for discharge prior. If found to have severe pulmonary hypertension, unrelated to heart failure, would then recommend pulmonary consultation. 4. CAD s/p CABG x 2: No angina. He takes full aspirin due to chronic back pain. Continue high-intensity statin therapy and beta-kenji. Call for sympt oms. 5. Aortic regurgitation: Non severe. Non severe on transesophageal echo. Monitor over time. 6. Atrial fibrillation: Permanent. Asymptomatic. Heart rate is reasonably controlled. Continue rate control strategy. Continue anticoagulation for stroke risk reduction. He is on Eliquis 2.5 mg twice daily for creatinine > 1.5 and age, however today creatinine is less than 1.5. If Cr stabilizes less than 1.5 consistently, would consider 5 mg twice daily. But given that his baseline is typically Cr > 1.5, would continue lower dose for now. 7. Hypertension: Blood pressure remains well controlled. No changes made. 8. Dyslipidemia: LDL has been well controlled. Goal LDL < 70. Continue high- intensity statin therapy. 9. Disposition: Will be away from the hospital through the week. . Please call on-call telegraphic typewriter operator chief with any questions or concerns. Plan of care communicated with Dr. Friedman of the primary hospitalist service and discussed with Dr. Trinidad. Admission and Anticipated Discharge Date Admission Date: January 11, 2022 Subjective Patient resting comfortably in bed this afternoon. He reports his breathing is improving. He's laying almost flat without issues. He is on 4L of O2. Patient uses 2L at home PRN. He has no lower extremity edema. He slept well last night with Ambien. He's responding well to IV Lasix, net negative 5L. Standing scale weights ordered but not done. He denies chest pain, cough, palpitations. Physical Exam Physical Exam: Gen.: No acute distress. Alert. HEENT: Anicteric sclera. Neck: JVD long-term to the mandible sitting upright. Hepatic jugular reflux noted. Cardiac: No ventricular heave. Irregularly irregular, with normal heart rate. Normal S1-S2. No audible murmur. No rubs or gallops. Pulmonary: Decreased breath sounds bilaterally, otherwise clear to auscultation bilaterally without wheezes, rales, or rhonchi. Abdomen: Soft, nontender, nondistended, with normoactive bowel sounds. No bruits noted. Extremities: 2+ radial pulses bilaterally. 2+ posterior tibialis pulses bilaterally. No pitting edema. No cyanosis. Psychiatric: Affect appears appropriate. Results & Data ([facility]) Vital Signs (Past 12 Hours) Vital Signs Temp Pulse Pulse Resp BP Pulse Ox Pulse Ox 01/13/22 15:12 98.1 F 60 17 109/50 L 97 01/13/22 14:47 93 01/13/22 13:28 60 01/13/22 13:28 01/13/22 12:10 98.6 F 74 18 119/63 99 01/13/22 07:58 98.2 F 68 18 115/61 93 Pulse Ox O2 Del Method O2 Flow Rate O2 Flow Rate O2 Flow Rate 01/13/22 15:12 Nasal Cannula 4 01/13/22 14:47 96 4 4 01/13/22 13:28 01/13/22 13:28 Nasal Cannula 4 01/13/22 12:10 Nasal Cannula 4 01/13/22 07:58 High Flow Nasal Cannula 4 PG Care Time/CCT Total # of Minutes Spent Total Time Spent with Patient: Total time spent is greater than 50% in coordination of care (as documented) at patient's floor/unit and/or counseling patient: Coding Level of Care Code 11761 Subseq Hosp Care Lvl 3 Diagnoses Acute on chronic heart failure with preserved ejection fraction (HFpEF) I50.33 CAD (coronary artery disease), [place] coronary artery I25.10 Associated angina: without angina [place] vs. transplanted heart: [place] heart S/P CABG x 2 Z95.1 Right heart failure with reduced right ventricular function I50.810 Pulmonary hypertension I27.20 Permanent atrial fibrillation I48.21 Mitral regurgitation I34.0 (1) CAD (coronary artery disease), [place] coronary artery Associated angina: without angina [place] vs. transplanted heart: [place] heart Qualified Code(s): I25.10 - Atherosclerotic heart disease of [place] coronary artery without angina pectoris
[2022-01-13] MEDS: FUROSEMIDE 40 MG/4 ML VIAL IV SCH (16:21)
[2022-01-13] MEDS ORDERED: CYCLOBENZAPRINE HCL 5 MG TAB PO PRN (19:16)
[2022-01-13] MEDS: ROSUVASTATIN CALCIUM 20 MG TAB PO SCH (20:40)
[2022-01-13] MEDS: ZOLPIDEM TARTRATE 5 MG TAB PO PRN (20:40)
[2022-01-13] MEDS: dilTIAZem HCL 120 MG CAPCR PO SCH (20:40)
[2022-01-14 07:38] LABS: BUN Creatinine Ratio 18.8 (10-20); Calcium 9.4 mg/dl (8.5-10.1); Creatinine Clr Calc Pharmacy 43.1 ml/min; Est GFR (African American) 48.7 ml/min; Potassium 3.8 mmol/L (3.5-5.1)
[2022-01-14] MEDS: TAMSULOSIN HCL 0.4 MG CAP PO SCH (08:57)
[2022-01-14] MEDS: APIXABAN 2.5 MG TAB PO SCH (08:58)
[2022-01-14] MEDS: CHOLECALCIFEROL 1,000 UNITS 25 MCG TAB PO SCH (08:58)
[2022-01-14] MEDS: CYANOCOBALAMIN (B-12) 100 MCG TABLET PO SCH (08:58)
[2022-01-14] MEDS: PANTOprazole 40 MG TAB PO SCH (08:58)
[2022-01-14] MEDS: METOPROLOL TARTRATE 50 MG TAB PO SCH (08:58)
[2022-01-14] MEDS: ASPIRIN 325 MG ECTAB PO SCH (08:58)
[2022-01-14] MEDS: ISOSORBIDE MONO EXTENDED REL 30 MG TABCR PO SCH (08:58)
[2022-01-14] MEDS: FUROSEMIDE 40 MG/4 ML VIAL IV SCH (09:01)
--- NOTE | 2022-01-14 09:01 | XRay Report ---
XR chest 2V PA/lateral HISTORY: hypoxia COMPARISON: Chest 01/11/2022. FINDINGS: No pneumothorax. No pleural effusions. The cardiac silhouette remains enlarged. There are l ow lung volumes. A few bibasilar linear densities consistent with subsegmental atelectasis. No new fo iggy lung consolidations to suggest a pneumonia. No evidence for pulmonary edema. Poststernotomy ramos es again noted. IMPRESSION: Mild cardiomegaly, unchanged. No acute process within the chest. ACT 112: Negative or not required by law. Electronically signed by: Toi Maria M.D. 01/14/2022 8:59 AM
--- NOTE | 2022-01-25 13:07 | Discharge Summary ---
Date of Service January 14, 2022 Admission HPI Per Admitting Provider The patient is an 81-year-old male with a past medical history including HFpEF, pulm hypertension, syncope, permanent atrial fibrillation, CKD, aortic insufficiency, mitral regurgitation, CAD, hypertension, hyperlipidemia, BPH with LUTS and anxiety. He presents with symptoms as noted above. Chest x-ray and emergency department was suggestive of CHF, patient received Lasix 40 mg IV, with good urine output. Abnormal laboratories: Hemoglobin 13.5, hematocrit 40.3, creatinine 1.59, INR 1.4, troponin 52.6, AST 60, BNP 925 Principal Diagnosis Acute on chronic congestive heart failure with preserved ejection fraction Discharge Exam Constitutional WD/WN, vitals as above Respiratory normal respiratory effort, lungs clear to auscultation Cardiovascular Rate/Rhythm: regular rate and regular rhythm Heart Sounds: no murmur Vessels: no JVD Extremities: normal capillary refill, + calf tenderness and + pedal edema (trace equal b/l pedal edema) Skin no rashes, warm and dry Psychiatric A+Ox3, euthymic affect Discharge Data Allergies Allergy/AdvReac Type Severity Reaction Status Date / Time No Known Allergies Allergy Verified 01/24/22 11:07 Consultations 01/11/22 03:58 ED Decision to Admit Stat 01/11/22 05:54 Consult Cardiology Routine Hospital Course (1) Acute on chronic heart failure with preserved ejection fraction (HFpEF): Trav Dhillon is an 81 year old male admitted to [facility] from January 11 - 2021 due to shortness of breath. He was diagnosed with acute on chronic heart failure which responded to increased dose of intravenous Lasix 80 - 120mg / day. Recommend continuing on his usual dose of diuretics (40mg PO BID) on discharge and taking an extra dose if his weight increases by 3lb in 1-2 days. He should follow up with the heart failure clinic on discharge for ongoing advice. He was advised to stick to a low sodium diet of less than 2g daily. From respiratory therapy assessment on discharge he is not requiring any oxygen however he already has this at home and recommend using 2 liters per minute if he feels less short of breath on exertion. (2) Pulmonary hypertension: Right heart cath planned for outpatient by cardiology on discharge (3) Elevated troponin: (4) Permanent atrial fibrillation: (5) Chronic kidney disease: (6) CAD (coronary artery disease), [place] coronary artery: (7) Hypertension: (8) Hyperlipidemia: (9) BPH with obstruction/lower urinary tract symptoms: Total Time Total Time Spent Total Time Spent (In Minutes): 25 Discharge Plan Discharge Items Patient Disposition: Home - Self-Care Reason For Visit: CHF, NSTEMI Discharge Diagnosis: Acute on chronic congestive heart failure with preserved ejection fraction Activity: Resume your previous activity Non-emergency contact: Primary Care Provider Call non-emergency contact if: you have any medication questions and your symptoms worsen Follow-up/Referrals: Shannne Cardenas MD [Primary Care Provider] - 01/24/22 11:00 am Julia Mcmullen PA-C [Physician Assistant Chief Nursing Officer] - (1 week follow up) Diet: Heart Healthy and Low Sodium (2gm) Addtl Attending Provider Instructions: You were admitted to [facility] from January 11 - 2021 due to shortness of breath. You were diagnosed with acute on chronic heart failure which responded to increased dose of your diuretics. Recommend continuing on your usual dose of diuretics on discharge and taking an extra dose if your weight increases by 3lb in 1-2 days. Please follow up with the heart failure clinic on discharge. Recommend sticking to a low salt diet per hand out leaflets added to discharge. From respiratory therapy assessment on discharge you are not needing any oxygen however recommend just using 2 liters per minute if you need to on exertion. Pending Studies at Discharge: No Stand-Alone Forms: My [facility], Smoking Cessation Medications and DC Order Prescriptions: Continued Eliquis 5 mg tablet 2.5 mg PO BID isosorbide mononitrate 30 mg tablet extended release 24 hr 30 mg PO QAM Qty: 30 5RF cyanocobalamin (vitamin B-12) 100 mcg tablet 100 mcg PO QAM rosuvastatin 40 mg tablet 40 mg PO PM metoprolol tartrate 50 mg tablet 50 mg PO BID Qty: 180 3RF nitroglycerin 0.4 mg tablet, sublingual 0.4 mg sublingual Q5M PRN (Reason: chest pain) Qty: 1 0RF Rx Instructions: max 3 doses in 15 minutes omeprazole magnesium [Prilosec OTC] 20 mg Tablet,Delayed Release (Dr/Ec) 20 mg PO QAM Label Comments: patient's son thinks he took all his medications on 12/12/19 acetaminophen [Tylenol] 325 mg Tablet 650 mg PO DIRECTED PRN (Reason: PAIN/FEVER) diltiazem HCl 120 mg capsule,extended release 24hr 120 mg PO PM aspirin 325 mg Tablet,Delayed Release (Dr/Ec) 325 mg PO DAILY tamsulosin 0.4 mg capsule 0.4 mg PO DAILY furosemide 40 mg tablet 40 mg PO BID Qty: 60 0RF Discharge Orders: Discharge Order (Routine); Ordered 01/14/22 Ordered By: Maged Vargas/Other Patient Handouts: Tips for Using Less Salt, Low Salt Diet Dc Admission Data Admit Date/Time: 01/11/22 04:33 Attending Provider: Maged Friedman Admit Provider: Reg Powers Primary Care Provider: Shannen Cardenas Other Providers: Reg Powers ; Meet Trinidad Other Interventions: Discharge Summary Assessment (RN) Last Done: 01/14/22 09:38 Coding Level of Care Code D/C DAY MANAGEMENT <30 MINS Diagnoses Acute on chronic heart failure with preserved ejection fraction (HFpEF) I50.33 Pulmonary hypertension I27.20 Elevated troponin R77.8 Permanent atrial fibrillation I48.21 Chronic kidney disease N18.9 CAD (coronary artery disease), [place] coronary artery I25.10 Associated angina: without angina [place] vs. transplanted heart: [place] heart Hypertension I10 Hypertension type: unspecified Hyperlipidemia E78.5 Hyperlipidemia type: unspecified BPH with obstruction/lower urinary tract symptoms N40.1; N13.8
== END 2022-01-14 10:20 | disposition home or self-care (01) | DRG 291 ==
LOC: ED 00:49 → SUATTDRO 04:33 → 2S 04:33 → 2N 01-13 15:47

== ENCOUNTER 2022-02-15 18:19 | Inpatient (IN) ==
--- NOTE | 2022-02-15 18:43 | Emergency Department Note ---
Impression & Plan Acute exacerbation of CHF (congestive heart failure), Weakness, Hypoxemia, Dyspnea ED Provider Note NAME: SHARON HELMS AGE: 81 SEX: M : 1940 ARRIVES VIA: Walk-In INFORMANT: [Patient][, ] ED PROVIDER(S): [Cheikh French MD] Chief Complaint: Shortness of breath, weakness HPI: Patient presents due to concern for weakness and shortness of breath and is accompanied by his son at bedside who does help with his medications as well as health care. Patient does present for CHF typically every 4 months or so. No changes in diet. The patient had noticed weakness that was insidious in onset and progressively worse beginning about 2 to 3 weeks prior. The patient does complain of exertional dyspnea but no true orthopnea. The patient denies any leg swelling or calf pain. No cough or fever. Patient does use 2 L as needed at home for oxygen. The patient has been taking his medications on a regular basis. Patient states his sleep is been poor and he had been trialing some different medications for sleep. The patient states that he took his morning meds but not his evening. Patient denies any active chest pains. ROS: See HPI for pertinent positives and negatives. A total of 10 systems were reviewed and otherwise negative. Past medical history: See below Surgical history: See below Social history: See below Physical Exam: GENERAL: NAD, [wearing a mask,] non-toxic. Wearing glasses and a baseball cap. Nasal cannula in place EYE EXAM: Normal conjunctiva. PERRL, no anisocoria and EOM's grossly intact w/o pain. NECK: Supple, no nuchal rigidity, no adenopathy, non-tender. No signs of meningismus. FROM of the neck with good chin to chest and neck extension. No stridor. LUNGS: Bibasilar crackles noted. Normal chest wall mechanics. HEART: Irregularly irregular, no MRG. ABDOMEN: Abdomen soft, non-tender, normo-active bowel sounds, no masses, no rebound or guarding. BACK: No CVA TTP. SKIN: No rashes and no bruising. UPPER EXTREMITIES: Upper extremities are grossly normal. LOWER EXTREMITIES: Grossly normal, trace pretibial edema. NEURO EXAM: A&O x3, cranial nerves II-XII grossly intact, normal speech, moves all 4 extremities. Differential diagnoses: Reactive airway disease, pneumonia, pneumothorax, COPD, CHF, infections, cardiac ischemia, pulmonary embolism, musculoskeletal, gastrointestinal, as well as other pathologies. Course: Patient was seen and evaluated the bedside. Full history physical exam was performed. EKG interpreted by me Sathish smith, rate of 65, normal QRS, left axis no ST elevations. Imaging Studies: See Below Cardiac monitoring: An order was placed for continuous cardiac monitoring. The monitor shows a rate of 77 with sinus rhythm. MDM: Patient was seen due to concern for shortness of breath. Blood work was obtained along with an EKG troponin BNP chest x-ray. The patient was ordered Lasix IV. Patient's chest x-ray slows some slight change w/ developing pulmonary edema. Given this with the associated increase in oxygen requirement it has been the alcohol hospitalist Dr. Hope. The patient has normal white count with mild anemia hemoglobin of 12. Patient has had anemia in the past. Patient's platelet count is unremarkable with normal kidney function. Patient's VBG does not show any hypercarbia. Patient's creatinine 1.9 which may be slightly worse from before. Patient does have an elevated BNP. Critical Care: I have personally spent 35 minutes of critical care time in direct management of this patient. This includes bedside care, interpretation of diagnostic studies, and testing, discussion with consultants, patient, and family members, and other require inpatient management activities. This 35 minutes is in excess of all separately billable procedures. Past Med/Surg History Medical History Acute alteration in mental status Acute kidney injury Aortic insufficiency BPH with obstruction/lower urinary tract symptoms CAD (coronary artery disease), [place] coronary artery Chronic diastolic heart failure Chronic heart failure with preserved ejection fraction Chronic kidney disease Confusion Fall History of anesthesia reaction CONVULSIONS POST OP QUICK COMING AWAKE FROM CABG SURG 20 YRS AGO. DENIES SEIZURES, SAYS HE 'WOKE UP TOO QUICKLY' AND THEY PUT HIM BACK UNDER Hyperlipidemia Hypertension Mitral regurgitation Permanent atrial fibrillation Pulmonary hypertension Surgical History H/O colonoscopy S/P CABG x 2 S/P TURP Family History Brother Family history of esophageal cancer Mother , age 73 of a stroke and [place] Myocardial infarction Stroke Father , age 31 in a gas explosion No problems noted. 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 [employer] Feels Safe at Home: Yes Assistive Devices: Denture - Upper, Glasses and Oxygen - Continuous Allergies Allergies Allergy/AdvReac Type Severity Reaction Status Date / Time No Known Allergies Allergy Verified 02/15/22 20:08 Home Meds Home Medications Medication Instructions Recorded Confirmed omeprazole magnesium 20 mg 20 mg PO QAM 12/30/17 02/15/22 tablet,delayed release (Prilosec OTC) rosuvastatin 40 mg tablet 40 mg PO PM 09/17/19 02/15/22 cyanocobalamin (vitamin B-12) 100 100 mcg PO QAM 10/15/19 02/15/22 mcg tablet acetaminophen 325 mg tablet 650 mg PO DIRECTED PRN 10/03/20 02/15/22 (Tylenol) PAIN/FEVER diltiazem HCl 120 mg 120 mg PO PM 02/25/21 02/15/22 capsule,extended release 24 hr aspirin 325 mg tablet,delayed 325 mg PO DAILY 07/06/21 02/15/22 release tamsulosin 0.4 mg capsule 0.4 mg PO DAILY 07/06/21 02/15/22 apixaban 5 mg tablet (Eliquis) 2.5 mg PO BID 07/13/21 02/15/22 Previous Rx's Medication Instructions Recorded isosorbide mononitrate 30 mg 30 mg PO QAM #30 tabs 06/22/20 tablet,extended release 24 hr metoprolol tartrate 50 mg tablet 50 mg PO BID #180 tabs 09/16/20 furosemide 40 mg tablet 40 mg PO BID #60 tabs 07/23/21 nitroglycerin 0.4 mg sublingual 0.4 mg sublingual Q5M PRN chest 10/28/21 tablet pain #1 btl Results & Data (ED) Vital Signs Vital Signs - 24 hr 02/15/22 18:26 02/15/22 18:20 02/15/22 18:45 Temperature 36.8 C Temperature Source Temporal Artery Scan Pulse Rate 80 Pulse Rate [Left Finger] 70 Pulse Rate from SpO2 Sensor Pulse Rhythm [Left Finger] Regular Pulse Strength [Left Finger] Normal Respiratory Rate 26 H 20 Respiratory Effort / Characteristics Non-Labored Spontaneous Respiratory Depth Normal Normal Respiratory Pattern Regular Blood Pressure [Right Arm] 148/92 H Blood Pressure Mean [Right Arm] 110 Blood Pressure Position [Right Arm] Sitting Pulse Oximetry 87 L 87 L 94 Oxygen Delivery Method Room Air Nasal Cannula Nasal Cannula Oxygen Flow Rate 2 4 Sepsis Recent Fever Within 48 Hours No Sepsis New/Unexplained Change in Mental Status No Sepsis Action Taken by Nursing No Action Required Oxygen Flow Rate - Titration 4 Pulse Oximetry Post Tiitration 95 02/15/22 19:21 02/15/22 20:00 Temperature Temperature Source Pulse Rate 73 70 Pulse Rate [Left Finger] Pulse Rate from SpO2 Sensor 68 Pulse Rhythm [Left Finger] Pulse Strength [Left Finger] Respiratory Rate 25 H 24 Respiratory Effort / Characteristics Respiratory Depth Respiratory Pattern Blood Pressure [Right Arm] Blood Pressure Mean [Right Arm] Blood Pressure Position [Right Arm] Pulse Oximetry 92 92 Oxygen Delivery Method Nasal Cannula Nasal Cannula Oxygen Flow Rate 3 3 Sepsis Recent Fever Within 48 Hours Sepsis New/Unexplained Change in Mental Status Sepsis Action Taken by Nursing Oxygen Flow Rate - Titration Pulse Oximetry Post Tiitration Home Medications Current Medication List: was personally reviewed by me Laboratory Data Attestation: I reviewed the patient's lab results. Result diagrams: 02/15/22 18:40 02/15/22 18:40 Lab Results 02/15/22 02/15/22 02/15/22 Range/Units 18:40 18:40 18:40 WBC 6.36 (4.8-10.8) K/ul RBC 3.91 L (4.63-6.08) M/uL Hgb 12.4 L (14.0-18.0) g/dl Hct 38.0 L (40.1-51.0) % MCV 97.2 (80.0-100.0) fL MCH 31.7 (25.0-34.0) pg MCHC 32.6 (32.0-36.0) g/dL RDW Std Deviation 54.6 H (36.4-46.3) fL RDW Coeff of Marilynn 15.6 H (11.5-14.5) % Plt Count 204 (130-400) K/uL MPV 9.9 (9.4-12.4) fL Immature Gran % (Auto) 0.5 % Neut % (Auto) 71.4 % Lymph % (Auto) 10.2 % [place] % (Auto) 15.7 % Eos % (Auto) 1.3 % Baso % (Auto) 0.9 % Neut # (Auto) 4.54 (1.4-6.5) K/uL Lymph # (Auto) 0.65 L (1.2-3.4) K/uL [place] # (Auto) 1.00 H (0.24-0.82) K/uL Eos # (Auto) 0.08 (0-0.50) K/uL Baso # (Auto) 0.06 (0-0.2) K/uL Immature Gran # (Auto) 0.03 H (0.00-0.02) K/uL PT 13.7 H (9.0-12.0) Seconds INR 1.3 H (0.9-1.1) APTT 29.5 (21.0-31.0) Seconds PTT Ratio 1.1 VBG pH (7.36-7.41) VBG pCO2 (38-50) mmHg VBG pO2 mmHg VBG HCO3 mmol/L VBG O2 Saturation % VBG Base Excess mEq/L Sodium 141 (136-145) mmol/L Potassium 3.9 (3.5-5.1) mmol/L Chloride 107 (98-107) mmol/L Carbon Dioxide 24 (21-32) mmol/L Anion Gap 10 (3-11) BUN 32 H (6-23) mg/dl Creatinine 1.97 H (0.6-1.4) mg/dl Est Cr Clr Drug Dosing 34.0 ml/min Est GFR ( Amer) 36.1 ml/min Est GFR (Non-Af Amer) 31.2 ml/min BUN/Creatinine Ratio 16.2 (10-20) Glucose 129 H (70-99(Fasting)) mg/dl Calcium 8.8 (8.5-10.1) mg/dl Phosphorus 3.1 (2.5-4.9) mg/dl Magnesium 2.5 H (1.7-2.4) mg/dl Total Bilirubin 0.6 (0.2-1.0) mg/dl AST 76 H (13-39) U/L ALT 96 H (7-52) U/L Alkaline Phosphatase 127 H (34-104) U/L B-Natriuretic Peptide (0-100) pg/ml Total Protein 7.3 (6.0-8.3) gm/dl Albumin 4.1 (3.4-5.0) gm/dl Globulin 3.2 (2.5-4.0) gm/dl Albumin/Globulin Ratio 1.3 (0.9-2) Lyme Disease IgG Ab (Negative) Lyme Disease IgM Ab (Negative) SARS-CoV-2, RNA, NAAT (NEGATIVE) 02/15/22 02/15/22 02/15/22 Range/Units 18:48 19:15 19:38 WBC (4.8-10.8) K/ul RBC (4.63-6.08) M/uL Hgb (14.0-18.0) g/dl Hct (40.1-51.0) % MCV (80.0-100.0) fL MCH (25.0-34.0) pg MCHC (32.0-36.0) g/dL RDW Std Deviation (36.4-46.3) fL RDW Coeff of Marilynn (11.5-14.5) % Plt Count (130-400) K/uL MPV (9.4-12.4) fL Immature Gran % (Auto) % Neut % (Auto) % Lymph % (Auto) % [place] % (Auto) % Eos % (Auto) % Baso % (Auto) % Neut # (Auto) (1.4-6.5) K/uL Lymph # (Auto) (1.2-3.4) K/uL [place] # (Auto) (0.24-0.82) K/uL Eos # (Auto) (0-0.50) K/uL Baso # (Auto) (0-0.2) K/uL Immature Gran # (Auto) (0.00-0.02) K/uL PT (9.0-12.0) Seconds INR (0.9-1.1) APTT (21.0-31.0) Seconds PTT Ratio VBG pH (7.36-7.41) VBG pCO2 (38-50) mmHg VBG pO2 mmHg VBG HCO3 mmol/L VBG O2 Saturation % VBG Base Excess mEq/L Sodium (136-145) mmol/L Potassium (3.5-5.1) mmol/L Chloride (98-107) mmol/L Carbon Dioxide (21-32) mmol/L Anion Gap (3-11) BUN (6-23) mg/dl Creatinine (0.6-1.4) mg/dl Est Cr Clr Drug Dosing ml/min Est GFR ( Amer) ml/min Est GFR (Non-Af Amer) ml/min BUN/Creatinine Ratio (10-20) Glucose (70-99(Fasting)) mg/dl Calcium (8.5-10.1) mg/dl Phosphorus (2.5-4.9) mg/dl Magnesium (1.7-2.4) mg/dl Total Bilirubin (0.2-1.0) mg/dl AST (13-39) U/L ALT (7-52) U/L Alkaline Phosphatase (34-104) U/L B-Natriuretic Peptide 705 H (0-100) pg/ml Total Protein (6.0-8.3) gm/dl Albumin (3.4-5.0) gm/dl Globulin (2.5-4.0) gm/dl Albumin/Globulin Ratio (0.9-2) Lyme Disease IgG Ab Negative (Negative) Lyme Disease IgM Ab Equivocal A (Negative) SARS-CoV-2, RNA, NAAT NEGATIVE (NEGATIVE) 02/15/22 Range/Units 19:38 WBC (4.8-10.8) K/ul RBC (4.63-6.08) M/uL Hgb (14.0-18.0) g/dl Hct (40.1-51.0) % MCV (80.0-100.0) fL MCH (25.0-34.0) pg MCHC (32.0-36.0) g/dL RDW Std Deviation (36.4-46.3) fL RDW Coeff of Marilynn (11.5-14.5) % Plt Count (130-400) K/uL MPV (9.4-12.4) fL Immature Gran % (Auto) % Neut % (Auto) % Lymph % (Auto) % [place] % (Auto) % Eos % (Auto) % Baso % (Auto) % Neut # (Auto) (1.4-6.5) K/uL Lymph # (Auto) (1.2-3.4) K/uL [place] # (Auto) (0.24-0.82) K/uL Eos # (Auto) (0-0.50) K/uL Baso # (Auto) (0-0.2) K/uL Immature Gran # (Auto) (0.00-0.02) K/uL PT (9.0-12.0) Seconds INR (0.9-1.1) APTT (21.0-31.0) Seconds PTT Ratio VBG pH 7.37 (7.36-7.41) VBG pCO2 47 (38-50) mmHg VBG pO2 34 mmHg VBG HCO3 27 mmol/L VBG O2 Saturation < 60.0 % VBG Base Excess 1.3 mEq/L Sodium (136-145) mmol/L Potassium (3.5-5.1) mmol/L Chloride (98-107) mmol/L Carbon Dioxide (21-32) mmol/L Anion Gap (3-11) BUN (6-23) mg/dl Creatinine (0.6-1.4) mg/dl Est Cr Clr Drug Dosing ml/min Est GFR ( Amer) ml/min Est GFR (Non-Af Amer) ml/min BUN/Creatinine Ratio (10-20) Glucose (70-99(Fasting)) mg/dl Calcium (8.5-10.1) mg/dl Phosphorus (2.5-4.9) mg/dl Magnesium (1.7-2.4) mg/dl Total Bilirubin (0.2-1.0) mg/dl AST (13-39) U/L ALT (7-52) U/L Alkaline Phosphatase (34-104) U/L B-Natriuretic Peptide (0-100) pg/ml Total Protein (6.0-8.3) gm/dl Albumin (3.4-5.0) gm/dl Globulin (2.5-4.0) gm/dl Albumin/Globulin Ratio (0.9-2) Lyme Disease IgG Ab (Negative) Lyme Disease IgM Ab (Negative) SARS-CoV-2, RNA, NAAT (NEGATIVE) Administered Medications Apixaban (Apixaban 2.5 Mg Tab) 2.5 mg PO BID TROY Stop: 03/17/22 21:57 Last Admin: 02/15/22 23:04 Dose: 2.5 mg Documented By: JONATHAN Diltiazem HCl (Diltiazem Hcl 120 Mg Capcr) 120 mg PO PM TROY Stop: 03/17/22 21:57 Last Admin: 02/15/22 23:04 Dose: 120 mg Documented By: JONATHAN Furosemide (Furosemide 40 Mg/4 Ml Vial) 40 mg IV [id number] TROY Stop: 03/17/22 21:57 Last Admin: 02/15/22 23:05 Dose: 40 mg Documented By: JONATHAN Metoprolol Tartrate (Metoprolol Tartrate 50 Mg Tab) 50 mg PO BID TROY Stop: 03/17/22 21:57 Last Admin: 02/15/22 23:03 Dose: 50 mg Documented By: JONATHAN Rosuvastatin Calcium (Rosuvastatin Calcium 20 Mg Tab) 40 mg PO PM TROY Stop: 03/17/22 21:57 Last Admin: 02/15/22 23:03 Dose: 40 mg Documented By: JONATHAN Discontinued Medications Furosemide (Furosemide 40 Mg/4 Ml Vial) 40 mg IV ONE ONE Stop: 02/15/22 18:58 Last Admin: 02/15/22 19:10 Dose: 40 mg Documented By: IRA Imaging Data Radiologist's Impression: Chest X-Ray 02/15/22 18:56 XR chest 1V portable HISTORY: Dyspnea COMPARISON: Chest 01/14/2022. FINDINGS: There are low lung volumes. No pneumothorax. No pleural effusions. The cardiac silhouette remains enlarged. There are poststernotomy changes. There is perihilar interstitial/vascular thickening consistent with developing pulmonary edema. IMPRESSION: Cardiomegaly with developing pulmonary edema. This has progressed in the interval. ACT 112: Negative or not required by law. Electronically signed by: Toi Maria M.D. 02/15/2022 7:39 PM Discharge Plan Visit Data Chief Complaint: Confusion Stated Complaint: CONFUSION, COUGH, NEGATIVE COVID, LOW O2 ED Provider: Manolo,Cheikh D. Discharge Problem: Acute exacerbation of CHF (congestive heart failure), Weakness, Hypoxemia, Dyspnea Patient Disposition: Admitted As Inpatient Discharge Instructions Interventions: ED Discharge Assessment Last Done: 02/15/22 21:32
[2022-02-15] MEDS ORDERED: FUROSEMIDE 40 MG/4 ML VIAL IV ONE (18:57)
[2022-02-15 19:03] LABS: Basophils # (auto) 0.06 K/uL (0-0.2); Basophils % (auto) 0.9 %; Eosinophils # (auto) 0.08 K/uL (0-0.50); Eosinophils % (auto) 1.3 %; Hemoglobin 12.4 g/dl (14.0-18.0); Immature Granulocytes # (auto) 0.03 K/uL (0.00-0.02); Immature Granulocytes % (auto) 0.5 %; Lymphocytes # (auto) 0.65 K/uL (1.2-3.4); Lymphocytes % (auto) 10.2 %; Mean Corpuscular Hemoglobin 31.7 pg (25.0-34.0); Mean Corpuscular Hgb Conc 32.6 g/dL (32.0-36.0); Mean Corpuscular Volume 97.2 fL (80.0-100.0); Mean Platelet Volume 9.9 fL (9.4-12.4); Monocytes % (auto) 15.7 %; Neutrophils # (auto) 4.54 K/uL (1.4-6.5); Neutrophils % (auto) 71.4 %; Platelet Count 204 K/uL (130-400); RDW Coefficient of Variation 15.6 % (11.5-14.5); RDW Standard Deviation 54.6 fL (36.4-46.3); Red Blood Count 3.91 M/uL (4.63-6.08); White Blood Count 6.36 K/ul (4.8-10.8)
[2022-02-15 19:15] LABS: INR 1.3 (0.9-1.1); Partial Thromboplastin Ratio 1.1; Partial Thromboplastin Time 29.5 Seconds (21.0-31.0); Prothrombin Time 13.7 Seconds (9.0-12.0)
[2022-02-15 19:30] LABS: Albumin Globulin Ratio 1.3 (0.9-2); Albumin Level 4.1 gm/dl (3.4-5.0); BUN Creatinine Ratio 16.2 (10-20); Bilirubin,Total 0.6 mg/dl (0.2-1.0); Calcium 8.8 mg/dl (8.5-10.1); Est GFR (African American) 36.1 ml/min; Est GFR (Non-African American) 31.2 ml/min; Globulin 3.2 gm/dl (2.5-4.0); Magnesium 2.5 mg/dl (1.7-2.4); Phosphorus 3.1 mg/dl (2.5-4.9); Potassium 3.9 mmol/L (3.5-5.1); Total Protein 7.3 gm/dl (6.0-8.3)
--- NOTE | 2022-02-15 19:41 | XRay Report ---
XR chest 1V portable HISTORY: Dyspnea COMPARISON: Chest 01/14/2022. FINDINGS: There are low lung volumes. No pneumothorax. No pleural effusions. The cardiac silhouette r emains enlarged. There are poststernotomy changes. There is perihilar interstitial/vascular thickenin g consistent with developing pulmonary edema. IMPRESSION: Cardiomegaly with developing pulmonary edema. This has progressed in the interval. ACT 112: Negative or not required by law. Electronically signed by: Toi Maria M.D. 02/15/2022 7:39 PM
[2022-02-15 20:01] LABS: Base Excess VBG 1.3 mEq/L; HCO3 VBG 27 mmol/L; Oxygen Saturation VBG < 60.0 %; PCO2 VBG 47 mmHg (38-50); PO2 VBG 34 mmHg; pH VBG 7.37 (7.36-7.41)
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
[2022-02-15] MEDS ORDERED: ACETAMINOPHEN 325 MG TAB PO PRN (21:58)
[2022-02-15] MEDS ORDERED: ONDANSETRON INJ 2 MG/ML 2 ML VIAL IV PRN (21:58)
[2022-02-15 22:46] LABS: Lyme Ab IgG w/WB Rflx Negative (Negative)
[2022-02-15 22:52] LABS: Lyme Ab IgM w/WB Rflx Equivocal (Negative)
[2022-02-15] MEDS: ROSUVASTATIN CALCIUM 20 MG TAB PO SCH (23:03)
[2022-02-15] MEDS: METOPROLOL TARTRATE 50 MG TAB PO SCH (23:03)
[2022-02-15] MEDS: dilTIAZem HCL 120 MG CAPCR PO SCH (23:04)
[2022-02-15] MEDS: APIXABAN 2.5 MG TAB PO SCH (23:04)
[2022-02-15] MEDS: FUROSEMIDE 40 MG/4 ML VIAL IV SCH (23:05)
[2022-02-15] MEDS: LORazepam 0.5 MG TAB PO PRN (23:16)
[2022-02-16] MEDS ORDERED: LORazepam 0.5 MG in SYRINGE 0 ML IV ONE (02:05)
[2022-02-16 03:14] LABS: Base Excess ABG 3.7 mEq/L (-9-1.8); HCO3 ABG 29 mmol/L (19-24); Oxygen Saturation ABG 98.4 % (90-95); PCO2 ABG 43 mmHg (35-46); PO2 ABG 133 mmHg (80-95); pH ABG 7.43 (7.35-7.45)
[2022-02-16 03:15] LABS: Allen Test Pos (Pos)
[2022-02-16 07:39] LABS: Hematocrit (blood only) 37.5 % (40.1-51.0); Hemoglobin 12.2 g/dl (14.0-18.0); Mean Corpuscular Hgb Conc 32.5 g/dL (32.0-36.0); Mean Corpuscular Volume 98.4 fL (80.0-100.0); Mean Platelet Volume 9.5 fL (9.4-12.4); Platelet Count 189 K/uL (130-400); RDW Coefficient of Variation 15.4 % (11.5-14.5); RDW Standard Deviation 55.5 fL (36.4-46.3); Red Blood Count 3.81 M/uL (4.63-6.08); White Blood Count 6.59 K/ul (4.8-10.8)
[2022-02-16 08:03] LABS: Albumin Level 4.1 gm/dl (3.4-5.0); BUN Creatinine Ratio 15.5 (10-20); Bilirubin Direct 0.2 mg/dl (0-0.2); Bilirubin,Total 0.7 mg/dl (0.2-1.0); Calcium 8.8 mg/dl (8.5-10.1); Creatinine Clr Calc Pharmacy 35.2 ml/min; Est GFR (Non-African American) 34.5 ml/min; Potassium 3.2 mmol/L (3.5-5.1); Total Protein 7.2 gm/dl (6.0-8.3)
[2022-02-16] MEDS: FUROSEMIDE 40 MG/4 ML VIAL IV SCH ×2 (08:10→16:44)
[2022-02-16] MEDS: LORazepam 0.5 MG TAB PO PRN (08:10)
[2022-02-16] MEDS: LIDOCAINE 5% 1 PATCH TD SCH (08:11)
[2022-02-16] MEDS: APIXABAN 2.5 MG TAB PO SCH ×2 (08:11→22:32)
[2022-02-16] MEDS: ASPIRIN 325 MG ECTAB PO SCH (08:11)
[2022-02-16] MEDS: TAMSULOSIN HCL 0.4 MG CAP PO SCH (08:11)
[2022-02-16] MEDS: METOPROLOL TARTRATE 50 MG TAB PO SCH ×2 (08:11→22:32)
[2022-02-16] MEDS: CYANOCOBALAMIN (B-12) 100 MCG TABLET PO SCH (08:11)
[2022-02-16] MEDS: ISOSORBIDE MONO EXTENDED REL 30 MG TABCR PO SCH (08:11)
[2022-02-16] MEDS ORDERED: INFLUENZA VACCINE HIGH DOSE PF 65+ 0.7 ML SYR IM ONE (09:00)
[2022-02-16] MEDS ORDERED: POTASSIUM CHLORIDE CRTAB 20 MEQ TABCR PO STA (09:09)
--- NOTE | 2022-02-16 12:07 | Electrocardiogram Report ---
Test Reason : Blood Pressure : / mmHG Vent. Rate : 065 BPM Atrial Rate : 220 BPM P-R Int : 000 ms QRS Dur : 106 ms QT Int : 456 ms P-R-T Axes : 000 -14 002 degrees QTc Int : 474 ms Atrial fibrillation Abnormal ECG When compared with ECG of 12-JAN-2022 05:33, No significant change was found Confirmed by Vinh Roberts ([id number]) on 02/16/2022 12:07:05 PM Referred By: REFERRED SELF Confirmed By:Vinh Roberts
[2022-02-16] MEDS ORDERED: MAGNESIUM SULFATE / D5W 1 GM/100 ML BAG IV ONE (12:39)
[2022-02-16 17:23] LABS: BUN Creatinine Ratio 14.9 (10-20); Calcium 8.5 mg/dl (8.5-10.1); Creatinine Clr Calc Pharmacy 31.7 ml/min; Est GFR (African American) 35.3 ml/min; Est GFR (Non-African American) 30.4 ml/min; Potassium 3.7 mmol/L (3.5-5.1)
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
[2022-02-16] MEDS: ACETAMINOPHEN 500 MG TAB PO SCH (20:06)
[2022-02-16] MEDS ORDERED: ACETAMINOPHEN 500 MG TAB PO SCH (21:00)
[2022-02-16] MEDS: dilTIAZem HCL 120 MG CAPCR PO SCH (22:34)
[2022-02-16] MEDS: ROSUVASTATIN CALCIUM 20 MG TAB PO SCH (22:34)
[2022-02-17] MEDS: ACETAMINOPHEN 500 MG TAB PO SCH ×3 (04:13→20:16)
[2022-02-17 08:24] LABS: Basophils # (auto) 0.05 K/uL (0-0.2); Basophils % (auto) 0.8 %; Eosinophils # (auto) 0.16 K/uL (0-0.50); Eosinophils % (auto) 2.5 %; Hematocrit (blood only) 39.1 % (40.1-51.0); Hemoglobin 12.5 g/dl (14.0-18.0); Immature Granulocytes # (auto) 0.02 K/uL (0.00-0.02); Immature Granulocytes % (auto) 0.3 %; Lymphocytes # (auto) 0.62 K/uL (1.2-3.4); Lymphocytes % (auto) 9.8 %; Mean Platelet Volume 9.6 fL (9.4-12.4); Monocytes # (auto) 0.87 K/uL (0.24-0.82); Monocytes % (auto) 13.7 %; Neutrophils # (auto) 4.61 K/uL (1.4-6.5); Neutrophils % (auto) 72.9 %; Platelet Count 196 K/uL (130-400); RDW Coefficient of Variation 15.2 % (11.5-14.5); RDW Standard Deviation 56.2 fL (36.4-46.3); Red Blood Count 3.91 M/uL (4.63-6.08); White Blood Count 6.33 K/ul (4.8-10.8)
[2022-02-17 08:47] LABS: Albumin Globulin Ratio 1.2 (0.9-2); Albumin Level 4.1 gm/dl (3.4-5.0); BUN Creatinine Ratio 15.5 (10-20); Bilirubin,Total 0.9 mg/dl (0.2-1.0); Calcium 8.9 mg/dl (8.5-10.1); Creatinine Clr Calc Pharmacy 36.3 ml/min; Est GFR (Non-African American) 36.2 ml/min; Globulin 3.3 gm/dl (2.5-4.0); Magnesium 2.9 mg/dl (1.7-2.4); Potassium 3.7 mmol/L (3.5-5.1); Total Protein 7.4 gm/dl (6.0-8.3)
[2022-02-17] MEDS: TAMSULOSIN HCL 0.4 MG CAP PO SCH (09:02)
[2022-02-17] MEDS: LIDOCAINE 5% 1 PATCH TD SCH (09:02)
[2022-02-17] MEDS: ISOSORBIDE MONO EXTENDED REL 30 MG TABCR PO SCH (09:02)
[2022-02-17] MEDS: CYANOCOBALAMIN (B-12) 100 MCG TABLET PO SCH (09:03)
[2022-02-17] MEDS: APIXABAN 2.5 MG TAB PO SCH ×2 (09:03→20:18)
[2022-02-17] MEDS: ASPIRIN 325 MG ECTAB PO SCH (09:03)
[2022-02-17] MEDS: METOPROLOL TARTRATE 50 MG TAB PO SCH ×2 (14:45→20:16)
[2022-02-17] MEDS: ROSUVASTATIN CALCIUM 20 MG TAB PO SCH (20:17)
[2022-02-17] MEDS: dilTIAZem HCL 120 MG CAPCR PO SCH (20:18)
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
[2022-02-18 03:27] LABS: 18KDIGG Band NON-REACTIVE; 23KDIGG Band NON-REACTIVE; 23KDIGM Band NON-REACTIVE; 28KDIGG Band NON-REACTIVE; 30KDIGG Band NON-REACTIVE; 39KDIGG Band NON-REACTIVE; 39KDIGM Band NON-REACTIVE; 41KDIGG Band REACTIVE; 41KDIGM Band NON-REACTIVE; 45KDIGG Band REACTIVE; 58KDIGG Band NON-REACTIVE; 66KDIGG Band NON-REACTIVE; 93KDIGG Band REACTIVE; Lyme Antibodies, WB IgG NEGATIVE (NEGATIVE); Lyme Antibodies, WB IgM NEGATIVE (NEGATIVE)
[2022-02-18] MEDS: ACETAMINOPHEN 500 MG TAB PO SCH ×3 (04:03→21:08)
[2022-02-18] MEDS: TAMSULOSIN HCL 0.4 MG CAP PO SCH (08:39)
[2022-02-18] MEDS: CYANOCOBALAMIN (B-12) 100 MCG TABLET PO SCH (08:39)
[2022-02-18] MEDS: ASPIRIN 325 MG ECTAB PO SCH (08:39)
[2022-02-18] MEDS: ISOSORBIDE MONO EXTENDED REL 30 MG TABCR PO SCH (08:39)
[2022-02-18] MEDS: LIDOCAINE 5% 1 PATCH TD SCH (08:42)
[2022-02-18] MEDS: APIXABAN 2.5 MG TAB PO SCH ×2 (08:42→21:08)
[2022-02-18] MEDS: METOPROLOL TARTRATE 25 MG TAB PO SCH ×2 (08:42→21:09)
--- NOTE | 2022-02-18 14:14 | Cardiology Consultation ---
Date of Consultation February 18, 2022 Assessment & Plan (1) Acute on chronic heart failure with preserved ejection fraction (HFpEF): (2) CAD (coronary artery disease), [place] coronary artery: (3) S/P CABG x 2: (4) Mitral regurgitation: (5) Permanent atrial fibrillation: (6) Hypoxia: (7) Hypertension: (8) Hyperlipidemia: Plan ASSESSMENT/PLAN: 1. Acute on chronic heart failure with preserved EF: He appears euvolemic valve. Renal insufficiency worsened earlier this hospital stay diuretic therapy has since been discontinued by hospitalist service. Would recommend resuming his home dose of Lasix 40 mg p.o. b.i.d.. Dietary indiscretion appears to have played a role in this hospitalization, was also has occurred passed. Low-sodium diet, less than 2000 mg daily. Daily weights. Strict I&Os while hospitalized. Close follow-up with heart failure program next week. 2. CAD s/p CABG x 2: No angina. continue high-intensity statin therapy. Continue beta-kenji. 3. Pulmonary hypertension: Known to have severe pulmonary hypertension based on echo. Family history of pre capillary pulmonary hypertension. His pulmonary hypertension is likely multifactorial including heart failure. Have strongly recommended right heart catheterization a past. Recommended right heart catheterization today. He continues to decline and states that he will have it done in the future as an outpatient, which has been stated in the past as well. 4. Permanent atrial fibrillation: Heart rate well controlled. Continue beta- kenji as tolerated. Continue anticoagulation for stroke risk reduction. 5. Mitral regurgitation: Non severe would last imaging. Can be followed as an outpatient. 6. Hypertension: Blood pressure reasonably controlled. No changes made at this time. 7. Dyslipidemia: High-intensity statin therapy. 8. Disposition: He wishes to go home. He appears stable from a cardiac standpoint. Recommend resuming home dose of diuretic. Close follow-up with heart failure program. Patient care communicated with primary hospitalist, Dr. Shaffer. Thank you for allowing me to participate in the care of your patient. Please call for any other questions or concerns. Sincerely, Anival Trinidad M.D. History of Present Illness Reason for Consultation: "R heart failure- CHF exacerbation" Requesting Physician: Kt Rodriguez Attending Physician: Allen Shaffer History of Present Illness Mr. Dhillon is a 81-year-old gentleman with a history significant for CAD status post CABG x2 (approximately 1999 or 2000 at [facility]), CHF, permanent atrial fibrillation status post elective cardioversion in approximately 2016 or 2017, aortic regurgitation, mitral regurgitation, hypertension, anemia, CKD, pulmonary hypertension, and dyslipidemia. He has had the following studies/procedures: 1. cardiac catheterization 11/06/1997 at [facility]: Proximal LAD 100%. Distal RCA 60%. Mid circumflex 30-40%. 2. CABG x2 1997 [facility]: LAD and RCA reportedly bypassed. 3. DC cardioversion in : [facility]. Elective. Done for atrial fibril lation. 4. Echo 11/10/2018 normal LV systolic function. EF 55-60%. Severe left atrial dilation. mild right atrial dilation. Moderate AI. Mild to moderate MR. RVSP 30-40. 5. Nuclear stress 11/13/2018: Moderate sized area of base to mid inferolateral ischemia as well as a small area of distal anterolateral ischemia. EF 57%. Normal wall motion. 6. Cardiac catheterization 11/18/2018: Ostial LAD 60% with high diagonal vessel noted prior to proximal LAD 100%. Remainder of LAD fills via CHOUDHARY. Mid LAD 60- 70%. Mid circumflex 99% followed by 100%. Small OM1 proximal 98% (too small for intervention). Dominant RCA. Proximal RCA 90%. Mid RCA 100%. CHOUDHARY to LAD patent. MITUL to RCA patent. 7. Echo 03/19/2020: Mildly dilated LV with normal systolic function. EF 55- 60%. Hypokinesis of the inferolateral wall. Mild to moderate LVH. Mildly dilated RV with moderately reduced systolic function. Severe left atrial dilation. Severe MR. Mild AI. Mild to moderate TR. RVSP 80. 8. EVA 04/19/2020: Mildly dilated LV with normal systolic function. EF 55- 60%. No LVH. Mildly dilated RV with normal systolic function. Severe left atrial dilation. More moderate than severe, central MR. Mild AI. Normal RVSP. 9. Echo 07/06/2021 [place] : Normal LV size, wall motion, systolic function. EF 55-60%. Severe LVH. Moderate RV dilation with mildly reduced systolic function. Severe left and moderate right atrial dilation. Mild AI. Moderate to severe MR. Moderate TR. RVSP 55-60. 10. PFT's 08/30/2021: Normal spirometry and lung volumes with decreased diffusion capacity. Had a brief syncopal episode during pre bronchodilator FVC maneuver, which was preceded by lightheadedness. 11. Echo 09/08/2021 [place] pg: Normal LV size, wall motion, systolic function. EF 55%. Severe LVH. Mildly dilated RV with moderately reduced systolic function. Mild left atrial dilation. Moderate right atrial dilation. Mild MR. RVSP 68. 12. Event monitor 09/16/21 to 09/29/2021: AFib throughout with average heart rate 67, ranging 39-124. No significant pauses. PVCs. Symptoms occurred during AFib with heart rates 100-105. He was admitted on 02/15/2022 with shortness of breath. He was given intravenous diuretics and diuresed with improvement of his symptoms. He uses supplemental oxygen at home on an as-needed basis but had been using it more frequently leading up to his hospital stay. He states that the shortness of breath had been creeping up on him over the 1-2 weeks prior to his hospital stay. It is not clear if he was taking his medications correctly and he admits as such. He also admits that he had been consuming foods high in sodium content. While here, his oxygen supplementation has been when but still requiring 3 L via nasal cannula. He denies orthopnea here. He feels back baseline. He would like to be discharged. He was last seen in the Heart failure program on 02/02/2022 and appears euvolemic at was taking Lasix 40 mg twice daily. During this hospital stay, he was receiving IV furosemide 40 mg twice daily but his last dose was on 02/16/2022 in the evening. He did not receive any Lasix yesterday or the so far today. Diuretic was held by the primary hospitalist service after creatinine increased to 2 on 02/16/2022. Creatinine has since improved. No labs done today. It has been recommended multiple times that he undergo a right heart catheteri zation as he has had significant pulmonary hypertension and has a family history of pre capillary pulmonary hypertension as well. He has declined repeatedly but more recently has stated that he would undergo the procedure but continues to delay. He states that he does not want to undergo the right heart catheterization during this hospital stay prefers to be discharged. He denies syncope, near-syncope, palpitations, edema, or bleeding. Review of systems: As above. Family history: Mother at the age of 73. Father from accident. No known premature CAD. His brother, Darren, in 2021 with severe pulmonary hypertension. Social history:He denies tobacco or alcohol abuse. 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 He had 7 children. He was alone in his hospital room. Allergies Allergy/AdvReac Type Severity Reaction Status Date / Time No Known Allergies Allergy Verified 02/15/22 20:08 Home Medications Medication Instructions Recorded Confirmed Type omeprazole magnesium 20 mg 20 mg PO QAM 12/30/17 02/15/22 History tablet,delayed release (Prilosec OTC) rosuvastatin 40 mg tablet 40 mg PO PM 09/17/19 02/15/22 History cyanocobalamin (vitamin B-12) 100 100 mcg PO QAM 10/15/19 02/15/22 History mcg tablet isosorbide mononitrate 30 mg 30 mg PO QAM #30 tabs 06/22/20 02/15/22 Rx tablet,extended release 24 hr metoprolol tartrate 50 mg tablet 50 mg PO BID #180 tabs 09/16/20 02/15/22 Rx acetaminophen 325 mg tablet 650 mg PO DIRECTED PRN 10/03/20 02/15/22 History (Tylenol) PAIN/FEVER diltiazem HCl 120 mg 120 mg PO PM 02/25/21 02/15/22 History capsule,extended release 24 hr aspirin 325 mg tablet,delayed 325 mg PO DAILY 07/06/21 02/15/22 History release tamsulosin 0.4 mg capsule 0.4 mg PO DAILY 07/06/21 02/15/22 History apixaban 5 mg tablet (Eliquis) 2.5 mg PO BID 07/13/21 02/15/22 History furosemide 40 mg tablet 40 mg PO BID #60 tabs 07/23/21 02/15/22 Rx nitroglycerin 0.4 mg sublingual 0.4 mg sublingual Q5M PRN chest 10/28/21 02/15/22 Rx tablet pain #1 btl Patient History Medical History Acute alteration in mental status Acute kidney injury Aortic insufficiency BPH with obstruction/lower urinary tract symptoms CAD (coronary artery disease), [place] coronary artery Chronic diastolic heart failure Chronic heart failure with preserved ejection fraction Chronic kidney disease Confusion Fall History of anesthesia reaction CONVULSIONS POST OP QUICK COMING AWAKE FROM CABG SURG 20 YRS AGO. DENIES SEIZURES, SAYS HE 'WOKE UP TOO QUICKLY' AND THEY PUT HIM BACK UNDER Hyperlipidemia Hypertension Mitral regurgitation Permanent atrial fibrillation Pulmonary hypertension Surgical History H/O colonoscopy S/P CABG x 2 S/P TURP Family History Brother Family history of esophageal cancer Mother , age 73 of a stroke and ID Myocardial infarction Stroke Father , age 31 in a gas explosion No problems noted. 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 Alert and oriented. HEENT: Anicteric sclera. Neck: No appreciable JVD. No hepatic jugular reflux. No bruits. Normal carotid upstrokes bilaterally. Cardiac: PMI was nondisplaced. No ventricular heave. Irregularly irregular with normal heart rate. Normal S1-S2. No murmurs, rubs, or gallops. Pulmonary: Clear to auscultation bilaterally without wheezes, rales, or rhonchi. Abdomen: Soft, nontender, nondistended, with normoactive bowel sounds. No bruits noted. Extremities: 2+ radial pulses bilaterally. 2+ posterior tibialis pulses bilaterally. Trace bilateral lower extremity edema. No cyanosis. Psychiatric: Affect appears appropriate. Results & Data ([facility]) Vital Signs (Past 12 Hours) Vital Signs Temp Pulse Pulse Resp BP Pulse Ox O2 Del Method 02/18/22 09:00 Nasal Cannula 02/18/22 09:00 68 02/18/22 10:53 36.3 C L 65 20 125/47 L 95 Nasal Cannula 02/18/22 07:36 36.3 C L 70 20 144/71 H 96 Nasal Cannula 02/18/22 02:43 36.4 C L 64 18 109/54 L 95 Nasal Cannula O2 Flow Rate 02/18/22 09:00 2 02/18/22 09:00 02/18/22 10:53 3 02/18/22 07:36 3 02/18/22 02:43 2 Intake & Output 02/16/22 02/17/22 02/18/22 02/19/22 06:59 06:59 06:59 06:59 Intake Total 1330 / 1330 480 / 480 Output Total 3000 / 3000 1925 / 1925 1550 / 1550 400 / 400 Balance -3000 / -3000 -595 / -595 -1070 / -1070 -400 / -400 Weight 209 lb 14.081 oz 206 lb 5.643 oz 207 lb 14.334 oz Laboratory Results Laboratory Results - last 24 hr 02/15/22 18:48 Lyme IgG (Western Blot) NEGATIVE Lyme IgG 18 kDa Band NON-REACTIVE Lyme IgG 23 kDa Band NON-REACTIVE Lyme IgG 28 kDa Band NON-REACTIVE Lyme IgG 30 kDa Band NON-REACTIVE Lyme IgG 39 kDa Band NON-REACTIVE Lyme IgG 41 kDa Band REACTIVE A Lyme IgG 45 kDa Band REACTIVE A Lyme IgG 58 kDa Band NON-REACTIVE Lyme IgG 66 kDa Band NON-REACTIVE Lyme IgG 93 kDa Band REACTIVE A Lyme IgM Ab (WB) NEGATIVE Lyme IgM 23 kDa Band NON-REACTIVE Lyme IgM 39 kDa Band NON-REACTIVE Lyme IgM 41 kDa Band NON-REACTIVE Diagnostic Findings Telemetry personally reviewed: Atrial fibrillation. Heart rate controlled. ECG 02/15/2022 personally reviewed: AFib 65 beats per minute. Medications Administered Current Inpatient Medications Acetaminophen (Acetaminophen 500 Mg Tab) 1,000 mg PO Q8H TROY Stop: 03/18/22 19:59 Last Admin: 02/18/22 12:12 Dose: 1,000 mg Apixaban (Apixaban 2.5 Mg Tab) 2.5 mg PO BID TROY Stop: 03/17/22 21:57 Last Admin: 02/18/22 08:42 Dose: 2.5 mg Aspirin (Aspirin 325 Mg Ectab) 325 mg PO DAILY TROY Stop: 03/18/22 08:59 Last Admin: 02/18/22 08:39 Dose: 325 mg Cyanocobalamin (Cyanocobalamin (B-12) 100 Mcg Tablet) 100 mcg PO QAM TROY Stop: 03/18/22 08:59 Last Admin: 02/18/22 08:39 Dose: 100 mcg Isosorbide Mononitrate (Isosorbide [place] Extended Rel 30 Mg Tabcr) 30 mg PO QAM [facility] Stop: 03/18/22 08:59 Last Admin: 02/18/22 08:39 Dose: 30 mg Lidocaine (Lidocaine 5% 1 Patch) 1 patch TD QAM [facility] Stop: 03/18/22 08:59 Last Admin: 02/18/22 08:42 Dose: 1 patch Metoprolol Tartrate (Metoprolol Tartrate 25 Mg Tab) 25 mg PO BID [facility] Stop: 03/20/22 08:59 Last Admin: 02/18/22 08:42 Dose: 25 mg Miscellaneous (Remove Lidoderm Patch) 1 each N/A DAILY@2100 TROY Stop: 03/18/22 20:59 Last Admin: 02/17/22 20:19 Dose: 1 each Ondansetron HCl (Ondansetron Inj 2 Mg/Ml 2 Ml Vial) 4 mg IV Q6H PRN PRN Reason: Nausea Stop: 03/17/22 21:57 Rosuvastatin Calcium (Rosuvastatin Calcium 20 Mg Tab) 40 mg PO PM [facility] Stop: 03/17/22 21:57 Last Admin: 02/17/22 20:17 Dose: 40 mg Tamsulosin HCl (Tamsulosin Hcl 0.4 Mg Cap) 0.4 mg PO DAILY TROY Stop: 03/18/22 08:59 Last Admin: 02/18/22 08:39 Dose: 0.4 mg PG Care Time/CCT Total # of Minutes Spent Total Time Spent with Patient: Total time spent is greater than 50% in coordination of care (as documented) at patient's floor/unit and/or counseling patient: Coding Level of Care Code 36045 Initial Inpt Care Lvl 3 Diagnoses Acute on chronic heart failure with preserved ejection fraction (HFpEF) I50.33 CAD (coronary artery disease), [place] coronary artery I25.10 [place] vs. transplanted heart: [place] heart Associated angina: without angina S/P CABG x 2 Z95.1 Mitral regurgitation I34.0 Permanent atrial fibrillation I48.21 Hypoxia R09.02 Hypertension I10 Hypertension type: unspecified Hyperlipidemia E78.5 Hyperlipidemia type: unspecified (1) CAD (coronary artery disease), [place] coronary artery [place] vs. transplanted heart: [place] heart Associated angina: without angina Qualified Code(s): I25.10 - Atherosclerotic heart disease of [place] coronary artery without angina pectoris (2) Hypertension Hypertension type: unspecified Qualified Code(s): I10 - Essential (primary) hypertension (3) Hyperlipidemia Hyperlipidemia type: unspecified Qualified Code(s): E78.5 - Hyperlipidemia, unspecified
[2022-02-18 15:17] LABS: BUN Creatinine Ratio 18.8 (10-20); Calcium 8.8 mg/dl (8.5-10.1); Creatinine Clr Calc Pharmacy 39.6 ml/min; Est GFR (African American) 46.5 ml/min; Est GFR (Non-African American) 40.1 ml/min; Potassium 4.7 mmol/L (3.5-5.1)
[2022-02-18] MEDS: ROSUVASTATIN CALCIUM 20 MG TAB PO SCH (21:09)
--- NOTE | 2022-02-18 22:08 | Hospitalist Progress Note ---
Date of Service February 18, 2022 Assessment & Plan (1) Acute exacerbation of CHF (congestive heart failure): Plan: With acute on chronic diastolic and right-sided heart failure Echocardiogram from 08/2021 with severe LVH, preserved EF, moderately reduced RV Patient with increase in oxygen demand, reports FELIZ and SOB as well as cough. Weight gain has been He likely holds most of his excessive volume in his abdomen-no peripheral edema Creatinine initially went down from admission with diuresis, but on repeat check in the evening, creatinine up to 2.0 -iv Lasix held yesterday- -resume lasix PO BID on 02/19 netfluid negative 4.5 liters -Follow BMP in the morning -Dr De Anda discussed his care with his CHF clinic PA Julia Mcmullen . -Continue telemetry monitoring for arrhythmia -Monitor I/Os, daily weights-Bernstein catheter was placed on admission-recommend discontinuing in the next 1 to 2 days -Continue metoprolol, Isosorbide -Repeat LFTs in AM -suspect elevated LFTs from hepatic congestion in setting of right sided heart failure -Counseled on low-sodium diet and fluid restriction-he reports sometimes drinking 80 ounces a day of water -appreciate cardio input (2) Bradycardia: Plan: reduced metoprolol to 25 mg bid- stop diltiazem- both held this am 02/17 and given at 8 pm (3) Acute and chronic respiratory failure with hypoxia: Plan: Hospital day 3 Required 8 L of supplemental oxygen on the morning of 02/16 after receiving 3 doses of Ativan through the night after admission and in the setting of acute on chronic CHF as above Chest x-ray on admission with pulmonary edema and cardiomegaly He does have spinal oxygen at home but uses it as needed and only uses 2 L typically discontinued all Ativan -Continue to wean down O2 - will need home 02- using " prn" which is not how it is prescribed Doing OK on 2-3 L-resume p.o. Lasix 40 mg daily in the morning (4) Acute encephalopathy: Plan: secondary to Ativan use. He requested this admission and received a dose and became combative later, trying to punch a nurse. He ended up requiring more oxygen and was in restraints through the night of admission and was given more IV Ativan. Following morning, he was hallucinating and confused This is now improved with stopping all avenues through the day 02/16 He complains of severe insomnia due to chronic radiculopathy -Avoid all benzodiazepines-"discussed this patient and he is very displeased with that I will not provide Ativan" per Dr De Anda 02/16 -Given pain management for back pain as below -Could trial low dose of Seroquel at bedtime as needed as an antipsychotic but may also help with sleep (5) Chronic kidney disease: Plan: Acute kidney failure on CKD stage III Creatinine improved slightly from 1.9-1.8 >>2>> 1.74 no lasix held on 02/17 -Follow BMP in the morning -Watch urine output -Avoid nephrotoxins -renally dose meds when appropriate (6) Weakness: Plan: Patient reported generalized weakness and decreased energy. ?deconditioning contributing. ?CHF -Repeat Lyme serology pending but IgM is equivocal as it was several years ago -Treatment of underlying medical conditions -PT/OT (7) Permanent atrial fibrillation: Plan: Rate controlled. Patient anticoagulated with Apixaban -Continue Metoprolol dose changed for bradycardia, diltiazem stopped 02/18 -Continue Apixaban -Monitoring on telemetry (8) CAD (coronary artery disease), [place] coronary artery: Plan: Chronic. S/p CABG x 2V. Patient denies chest pain -Continue ASA, Metoprolol, Crestor (9) Hypertension: Plan: Chronic. 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 Controlled on home regimen -Continue Flomax 0.4mg po daily -Monitor UOP- can be done w/o Bernstein -Currently has a Bernstein catheter placed on admission for measurement of I's and O's- Bernstein discontinued 02/17 4 pm- hematuria (12) Back pain: Plan: Patient reports chronic back pain with bilateral lumbar radiculopathy down to his feet left greater than right since age 27 He repeatedly requests for ongoing Ativan use to help him sleep due to severe pain at nighttime. Because he had significant confusion and agitation overnight with taking Ativan, I advised him that I would not be prescribing any further Ativan at night discontinued all previous orders for Ativan. His PCP at the [place] stopped prescribing him Ativan it seems years ago He had no relief from Voltaren gel, Lidoderm patch He reports he has tried gabapentin and it did not help He has not seen pain management would not be a good candidate for any sort of surgical or injection intervention -Continue Lidoderm patch -Continue heating pad -Change Tylenol to 1000 mg p.o. 3 times daily scheduled -Could potentially add tramadol but would be concerned with mental status changes with any opioids (even mild) -Avoid NSAIDs Plan DVT prophylaxis-Eliquis Disposition-continued stay on telemetry unit for diuresis and acute kidney injury, acute on chronic hypoxic respiratory failure. Patient impatient to go home. possible dc on Sunday. PT/OT ordered to assess his ambulatory function Admission and Anticipated Discharge Date Admission Date: February 15, 2022 Subjective 81 yo male reports feeling better. States he will not stay past Sunday. WALTER Cardio, kallie lasix. Review of Systems Review of Systems: All systems reviewed & are unremarkable except as noted in HPI & below Physical Exam Constitutional: WD/WN, vitals as above Eyes: + anicteric sclerae ENMT: external ear and nose normal, oropharynx normal Neck: trachea midline, no thyromegaly Respiratory: normal respiratory effort (With nasal cannula in place); no cough Auscultation: + crackles (Bibasilar); no rhonchi and no wheezes Cardiovascular: Rate/Rhythm: regular rate and + irregularly irregular Heart Sounds: no murmur Extremities: no edema Gastrointestinal (Abdomen): normal bowel sounds, soft, nontender, no hepatosplenomegaly (Obese abdomen) Musculoskeletal: Extremities: extremities normal to inspection; no cyanosis and no clubbing Skin: no rashes, warm and dry Neurologic: moves all extremities and awake; no focal motor deficits Psychiatric: Orientation: alert, oriented x 3 and cooperative Lymphatic: no lymphedema Results & Data Results & Data ([facility]) Vital Signs (Past 12 Hours) Vital Signs Temp Pulse Pulse Resp BP Pulse Ox O2 Del Method 02/18/22 19:47 36.6 C 76 18 128/46 L 98 Room Air 02/18/22 16:00 60 02/18/22 15:16 36.4 C L 66 18 145/65 H 100 Room Air 02/18/22 10:53 36.3 C L 65 20 125/47 L 95 Nasal Cannula O2 Flow Rate 02/18/22 19:47 02/18/22 16:00 02/18/22 15:16 02/18/22 10:53 3 PG Care Time/CCT Total # of Minutes Spent Total Time Spent with Patient: Total time spent is greater than 50% in coordination of care (as documented) at patient's floor/unit and/or counseling patient: Coding Level of Care Code 18141 Subseq Hosp Care Lvl 2 Diagnoses Acute exacerbation of CHF (congestive heart failure) I50.9 Heart failure type: unspecified Bradycardia R00.1 Acute and chronic respiratory failure with hypoxia J96.21 Acute encephalopathy G93.40 Chronic kidney disease N18.9 Weakness R53.1 Permanent atrial fibrillation I48.21 CAD (coronary artery disease), [place] coronary artery I25.10 Associated angina: without angina [place] vs. transplanted heart: [place] heart Hypertension I10 Hypertension type: unspecified Hyperlipidemia E78.5 Hyperlipidemia type: unspecified BPH with obstruction/lower urinary tract symptoms N40.1; N13.8 Back pain M54.9 (1) Acute exacerbation of CHF (congestive heart failure) Heart failure type: unspecified Qualified Code(s): I50.9 - Heart failure, unspecified (2) Hyperlipidemia Hyperlipidemia type: unspecified Qualified Code(s): E78.5 - Hyperlipidemia, unspecified (3) CAD (coronary artery disease), [place] coronary artery Associated angina: without angina [place] vs. transplanted heart: [place] heart Qualified Code(s): I25.10 - Atherosclerotic heart disease of [place] coronary artery without angina pectoris (4) Hypertension Hypertension type: unspecified Qualified Code(s): I10 - Essential (primary) hypertension
[2022-02-19] MEDS: ACETAMINOPHEN 500 MG TAB PO SCH (05:00)
[2022-02-19 06:49] LABS: Hematocrit (blood only) 39.1 % (40.1-51.0); Hemoglobin 12.6 g/dl (14.0-18.0); Mean Corpuscular Hgb Conc 32.2 g/dL (32.0-36.0); Mean Corpuscular Volume 96.1 fL (80.0-100.0); Platelet Count 212 K/uL (130-400); RDW Coefficient of Variation 14.6 % (11.5-14.5); RDW Standard Deviation 51.4 fL (36.4-46.3); Red Blood Count 4.07 M/uL (4.63-6.08); White Blood Count 4.66 K/ul (4.8-10.8)
[2022-02-19 07:07] LABS: Albumin Level 3.8 gm/dl (3.4-5.0); BUN Creatinine Ratio 18.8 (10-20); Bilirubin Direct 0.3 mg/dl (0-0.2); Bilirubin,Total 0.8 mg/dl (0.2-1.0); Calcium 8.7 mg/dl (8.5-10.1); Creatinine Clr Calc Pharmacy 45.7 ml/min; Est GFR (African American) 55.6 ml/min; Est GFR (Non-African American) 47.9 ml/min; Potassium 4.2 mmol/L (3.5-5.1); Total Protein 6.8 gm/dl (6.0-8.3)
[2022-02-19] MEDS: CYANOCOBALAMIN (B-12) 100 MCG TABLET PO SCH (08:02)
[2022-02-19] MEDS: TAMSULOSIN HCL 0.4 MG CAP PO SCH (08:02)
[2022-02-19] MEDS: ISOSORBIDE MONO EXTENDED REL 30 MG TABCR PO SCH (08:02)
[2022-02-19] MEDS: APIXABAN 2.5 MG TAB PO SCH (08:02)
[2022-02-19] MEDS: ASPIRIN 325 MG ECTAB PO SCH (08:02)
[2022-02-19] MEDS: METOPROLOL TARTRATE 25 MG TAB PO SCH (08:02)
[2022-02-19] MEDS: LIDOCAINE 5% 1 PATCH TD SCH (08:03)
[2022-02-19] MEDS ORDERED: FUROSEMIDE 40 MG TAB PO SCH (09:00)
--- NOTE | 2022-02-19 10:30 | Discharge Summary ---
Date of Service February 19, 2022 Admission HPI Per Admitting Provider Trav Dhillon is an 81yo male with history of HFpEF, pulmonary hypertension, permanent atrial fibrillation on Apixaban anticoagulation, CAD, HTN and HLP presenting with cough, SOB and FELIZ. Patient was hospitalized from 01/11/22 - 03/16/22 with acute on chronic CHF. He improved with IV Lasix and discharged home in stable condition. He reports 2-3 weeks of decreased energy as well as progressive SOB and FELIZ. He denies edema, abdominal fullness or orthopnea. He takes his medications as prescribed without difficulty. He does report a dry cough and some increase in nasal congestion and drainage. He has supplemental O2 at home to be used as needed and notes that he has been using it more frequently over the last several days. Otherwise, he denies fever, chills, chest pain, palpitations, abdominal pain, nausea, vomiting. He has intermittent diarrhea and ongoing sciatic back pain. He did test positive for Lyme in the past and completed a course of Doxycycline. Does not recall any recent tick bites but does have an indoor/outdoor cat that frequently has ticks. In the ER he is afebrile, hypertensive, saturating 90 - 92% on 3L NC. ER Course: Lasix 40mg IV Discharge Data Allergies Allergy/AdvReac Type Severity Reaction Status Date / Time No Known Allergies Allergy Verified 02/15/22 20:08 Consultations 02/15/22 19:35 ED Decision to Admit Stat 02/17/22 21:14 Consult Cardiology Routine Hospital Course (1) Acute exacerbation of CHF (congestive heart failure): With acute on chronic diastolic and right-sided heart failure Echocardiogram from 08/2021 with severe LVH, preserved EF, moderately reduced RV Patient with increase in oxygen demand, reports FELIZ and SOB as well as cough. Weight gain has been He likely holds most of his excessive volume in his abdomen-no peripheral edema Creatinine initially went down from admission with diuresis, but on repeat check in the evening, creatinine up to 2.0 -iv Lasix held yesterday- -resume lasix PO BID on 02/19 netfluid negative 4.5 liters -Follow BMP in the morning -Dr De Anda discussed his care with his CHF clinic [facility] Mcmullen . -Continue telemetry monitoring for arrhythmia -Monitor I/Os, daily weights-Bernstein catheter was placed on admission-recommend discontinuing in the next 1 to 2 days -Continue metoprolol, Isosorbide -Repeat LFTs in AM -suspect elevated LFTs from hepatic congestion in setting of right sided heart failure -Counseled on low-sodium diet and fluid restriction-he reports sometimes drinking 80 ounces a day of water -appreciate cardio input (2) Bradycardia: reduced metoprolol to 25 mg bid- stop diltiazem- both held this am 02/17 and given at 8 pm (3) Acute and chronic respiratory failure with hypoxia: Hospital day 3 Required 8 L of supplemental oxygen on the morning of 02/16 after receiving 3 doses of Ativan through the night after admission and in the setting of acute on chronic CHF as above Chest x-ray on admission with pulmonary edema and cardiomegaly He does have spinal oxygen at home but uses it as needed and only uses 2 L typically discontinued all Ativan -Continue to wean down O2 - will need home 02- using " prn" which is not how it is prescribed Doing OK on 2-3 L-resume p.o. Lasix 40 mg daily in the morning (4) Acute encephalopathy: secondary to Ativan use. He requested this admission and received a dose and became combative later, trying to punch a nurse. He ended up requiring more oxygen and was in restraints through the night of admission and was given more IV Ativan. Following morning, he was hallucinating and confused This is now improved with stopping all avenues through the day 02/16 He complains of severe insomnia due to chronic radiculopathy -Avoid all benzodiazepines-"discussed this patient and he is very displeased with that I will not provide Ativan" per Dr De Anda 02/16 -Given pain management for back pain as below -Could trial low dose of Seroquel at bedtime as needed as an antipsychotic but may also help with sleep (5) Chronic kidney disease: Acute kidney failure on CKD stage III Creatinine improved slightly from 1.9-1.8 >>2>> 1.74 no lasix held on 02/17 -Follow BMP in the morning -Watch urine output -Avoid nephrotoxins -renally dose meds when appropriate (6) Weakness: Patient reported generalized weakness and decreased energy. ?deconditioning contributing. ?CHF -Repeat Lyme serology pending but IgM is equivocal as it was several years ago -Treatment of underlying medical conditions -PT/OT (7) Permanent atrial fibrillation: Rate controlled. Patient anticoagulated with Apixaban -Continue Metoprolol dose changed for bradycardia, diltiazem stopped 02/18 -Continue Apixaban -Monitoring on telemetry (8) CAD (coronary artery disease), [place] coronary artery: Chronic. S/p CABG x 2V. Patient denies chest pain -Continue ASA, Metoprolol, Crestor (9) Hypertension: Chronic. 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 Controlled on home regimen -Continue Flomax 0.4mg po daily -Monitor UOP- can be done w/o Bernstein -Currently has a Bernstein catheter placed on admission for measurement of I's and O's- Bernstein discontinued 02/17 4 pm- hematuria (12) Back pain: Patient reports chronic back pain with bilateral lumbar radiculopathy down to his feet left greater than right since age 27 He repeatedly requests for ongoing Ativan use to help him sleep due to severe pain at nighttime. Because he had significant confusion and agitation overnight with taking Ativan, I advised him that I would not be prescribing any further Ativan at night discontinued all previous orders for Ativan. [facility] stopped prescribing him Ativan it seems years ago He had no relief from Voltaren gel, Lidoderm patch He reports he has tried gabapentin and it did not help He has not seen pain management would not be a good candidate for any sort of surgical or injection intervention -Continue Lidoderm patch -Continue heating pad -Change Tylenol to 1000 mg p.o. 3 times daily scheduled -Could potentially add tramadol but would be concerned with mental status ontiveros ges with any opioids (even mild) -Avoid NSAIDs Plan DVT prophylaxis-Eliquis Disposition-continued stay on telemetry unit for diuresis and acute kidney injury, acute on chronic hypoxic respiratory failure. Patient impatient to go home. possible dc on Sunday. PT/OT ordered to assess his ambulatory function Discharge Plan Discharge Items Patient Disposition: Home - Self-Care Reason For Visit: SOB, WEAKNESS Discharge Diagnosis: Acute on chronic congestive heart failure Activity: Resume your previous activity Non-emergency contact: Hog Killer Call non-emergency contact if: you have any medication questions and your symptoms worsen Follow-up/Referrals: Shannen Cardenas MD [Primary Care Provider] - Diet: Low Sodium (2gm) Addtl Attending Provider Instructions: You were admitted to [facility] from February 15 - 2021 due to shortness of breath. You were diagnosed with acute on chronic heart iván lure which responded to increased dose of your diuretics. Recommend continuing on your usual dose of diuretics on discharge and taking an extra dose if your weight increases by 3lb in 1-2 days. Please follow up with the heart failure clinic on discharge. Recommend sticking to a low salt diet per hand out leaflets added to discharge. Recommend using your oxygen as needed to maintain O2 saturations > 88%. Please see separate heart failure clinic instructions below. Addtl Virtual Reality Specialist Provider Instructions: Call your Primary Care doctor if any of the following symptoms or problems start or get worse: * Shortness of breath or difficulty breathing * Wake up at night short of breath * Chest pain * Cough * Swelling of your hands, feet, or legs * More fatigued or tired with your normal activity * Palpitations - sudden fast heart beats WEIGHT * Weigh yourself every morning after using the bathroom. * Use the same scale. * Wear the same amount of clothing. * Write your weight down on a chart. * Call your Primary Care doctor if you gain more than 2-3 pounds in 1-2 days. MEDICATIONS * Use this discharge instruction sheet for medication instructions. * Take your medications at the time your doctor ordered. * Do not skip a dose of your medicines. * If you miss a dose of medicine, take it as soon as possible, but DO NOT DOUBLE A DOSE. * Read your medicine information when you get home. * Know all of the side effects of your medicine. If in doubt, ask your pharmacist * Call your Primary Care doctor's office if you have any side effects. * Be sure all of your doctors know what medicine and herbs you take (including cold, flu, and herbal medicine). Take the following with you to your follow-up doctor appointments: * Weight Chart * Medication List * List of questions Do not drink excessive alcohol, beer or wine. Pending Studies at Discharge: No Stand-Alone Forms: [facility], Smoking Cessation Medications and DC Order Prescriptions: Continued Eliquis 5 mg tablet 2.5 mg PO BID isosorbide mononitrate 30 mg tablet extended release 24 hr 30 mg PO QAM Qty: 30 5RF cyanocobalamin (vitamin B-12) 100 mcg tablet 100 mcg PO QAM rosuvastatin 40 mg tablet 40 mg PO PM metoprolol tartrate 50 mg tablet 50 mg PO BID Qty: 180 3RF nitroglycerin 0.4 mg tablet, sublingual 0.4 mg sublingual Q5M PRN (Reason: chest pain) Qty: 1 0RF Rx Instructions: max 3 doses in 15 minutes omeprazole magnesium [Prilosec OTC] 20 mg Tablet,Delayed Release (Dr/Ec) 20 mg PO QAM Label Comments: patient's son thinks he took all his medications on 03/13/19 acetaminophen [Tylenol] 325 mg Tablet 650 mg PO DIRECTED PRN (Reason: PAIN/FEVER) diltiazem HCl 120 mg capsule,extended release 24hr 120 mg PO PM aspirin 325 mg Tablet,Delayed Release (Dr/Ec) 325 mg PO DAILY tamsulosin 0.4 mg capsule 0.4 mg PO DAILY furosemide 40 mg tablet 40 mg PO BID Qty: 60 0RF Discharge Orders: Discharge Order (Routine); Ordered 02/19/22 Ordered By: Maged Vargas/Other Patient Handouts: Low Salt Diet Dc Admission Data Admit Date/Time: 02/15/22 20:22 Attending Provider: Maged Friedman Admit Provider: Eri Hope Primary Care Provider: Shannne Cardenas Other Providers: Eri Hope ; Meet Trinidad Coding Diagnoses Acute exacerbation of CHF (congestive heart failure) I50.9 Heart failure type: unspecified Bradycardia R00.1 Acute and chronic respiratory failure with hypoxia J96.21 Acute encephalopathy G93.40 Chronic kidney disease N18.9 Weakness R53.1 Permanent atrial fibrillation I48.21 CAD (coronary artery disease), [place] coronary artery I25.10 [place] vs. transplanted heart: [place] heart Associated angina: without angina Hypertension I10 Hypertension type: unspecified Hyperlipidemia E78.5 Hyperlipidemia type: unspecified BPH with obstruction/lower urinary tract symptoms N40.1; N13.8 Back pain M54.9
== END 2022-02-19 11:35 | disposition home or self-care (01) | DRG 291 ==
LOC: ED 18:19 → SUATTDRO 20:22 → 2N 20:22
DX: F41.9 Anxiety disorder, unspecified; Z95.1 Presence of aortocoronary bypass graft; I50.810 Right heart failure, unspecified; R00.1 Bradycardia, unspecified; G92.8 Other toxic encephalopathy; I34.0 Nonrheumatic mitral (valve) insufficiency; T42.4X5A Adverse effect of benzodiazepines, initial encounter; Y92.230 Patient room in hospital as the place of occurrence of the external cause; J96.21 Acute and chronic respiratory failure with hypoxia; I48.21 Permanent atrial fibrillation; I13.0 Hypertensive heart and chronic kidney disease with heart failure and stage 1 through stage 4 chronic kidney disease, or unspecified chronic kidney disease; I50.33 Acute on chronic diastolic (congestive) heart failure; N17.9 Acute kidney failure, unspecified; E78.5 Hyperlipidemia, unspecified; I25.10 Atherosclerotic heart disease of native coronary artery without angina pectoris; Z79.01 Long term (current) use of anticoagulants; I27.20 Pulmonary hypertension, unspecified; Z79.82 Long term (current) use of aspirin; N18.30 Chronic kidney disease, stage 3 unspecified; N40.1 Benign prostatic hyperplasia with lower urinary tract symptoms

== ENCOUNTER 2022-02-27 09:02 | Inpatient (IN) ==
--- NOTE | 2022-02-27 09:36 | Emergency Department Note ---
Impression & Plan Hematuria, BPH with obstruction/lower urinary tract symptoms, CKD (chronic kidney disease) ED Provider Note NAME: SHARON HELMS AGE: 81 SEX: M : 1940 ARRIVES VIA: Walk-In INFORMANT: Patient ED PROVIDER(S): Nacho Fang DO CHIEF COMPLAINT: clogged shepard HPI: Patient is an 81-year-old male with PMH of HFpEF, pulmonary hypertension, permanent atrial fibrillation on Apixaban anticoagulation, CAD, HTN and HLP admission last week for CHF with Shepard placement. He has had trouble with his Shepard since then. Shepard clotted off yesterday and then once again last night. He has been urinating around shepard. He has lower abdominal pressure as he has to urinate but cannot. Denies any headache or change in vision. No chest pain or shortness of breath. Bladder was irrigated last night and has already clotted off again. He declined admission last night. Last dose of apixaban was last night. ROS: See above HPI for pertinent positives & negatives. A total of 10 systems reviewed and were otherwise negative. PAST MEDICAL HISTORY:See Below PAST SURGICAL HISTORY:See Below FAMILY HISTORY:See Below SOCIAL HISTORY:See Below HOME MEDICATIONS:See Below ALLERGIES:See Below VITALS:See Below PHYSICAL EXAMINATION: GENERAL: Sitting up in bed, alert, well appearing, well nourished, no distress, non-toxic EYE EXAM: normal conjunctiva. OROPHARYNX: mucous membranes are moist NECK: supple, no nuchal rigidity, no adenopathy, non-tender LUNGS: Clear to auscultation. Normal chest wall mechanics HEART: no murmurs, S1 normal and S2 normal ABDOMEN: abdomen soft, non-tender, normo-active bowel sounds, no masses, no rebound or guarding. : Shepard present with a small amount of dark blood in catheter. Urine leaking out around Shepard. UPPER EXTREMITIES: upper extremities are grossly normal. LOWER EXTREMITIES: No pitting edema. NEURO EXAM: Normal sensorium, cranial nerves II-XII grossly intact, normal speech, no gross weakness of arms, no gross weakness of legs. MEDICAL DECISION MAKING: Patient is an 81-year-old male who presents the ER for the inability to void with a Shepard in place who was just here following having a three-way placed and irrigation. IV was established blood work is obtained. Labs show no signific ant leukocytosis or anemia. INR 1.2. He did not take his NOAC today. BMP with a creatinine 1.5 which actually improved from previous. UA with a large amount of hematuria. COVID was negative. Shepard was removed and three-way was placed. He was irrigated and large amounts of clots were removed. Discussed with urology Meche and they are aware will evaluate the patient. Discussed with Dr. Nuñez for further evaluation and admission. Triage Nursing notes reviewed. Limited review of prior medical records performed Vital Signs: reviewed and remarkable for tachy and HTN Differential diagnosis: Differential diagnoses includes but is not limited to gastritis, peptic ulcer disease, GERD, gallbladder disease, pancreatitis, small bowel obstruction, acute coronary syndrome, pericarditis, ischemic bowel, irritable bowel disease, irritable bowel syndrome, appendicitis, diverticulitis, malignancy, hernia, urinary tract infection, torsion, perforation, trauma, infectious. ER treatment provided: See below Diagnostics interpreted by me: ECG: none Cardiac Monitoring: An order was placed for continuous cardiac monitoring. The monitor shows a rate of 70 with sinus rhythm. Laboratory studies: As stated above and show below. Imaging studies: CT head and pelvis was unremarkable Consultation(s): Discussed with urology as described above Discussed with the hospitalist as described above Procedures: none Critical Care: None Past Med/Surg History Medical History Acute alteration in mental status Acute kidney injury Aortic insufficiency BPH with obstruction/lower urinary tract symptoms CAD (coronary artery disease), [place] coronary artery Chronic diastolic heart failure Chronic heart failure with preserved ejection fraction Chronic kidney disease Confusion Fall History of anesthesia reaction CONVULSIONS POST OP QUICK COMING AWAKE FROM CABG SURG 20 YRS AGO. DENIES SEIZURES, SAYS HE 'WOKE UP TOO QUICKLY' AND THEY PUT HIM BACK UNDER Hyperlipidemia Hypertension Mitral regurgitation Permanent atrial fibrillation Pulmonary hypertension Surgical History H/O colonoscopy S/P CABG x 2 S/P TURP Family History Brother Family history of esophageal cancer Mother , age 73 of a stroke and [place] Myocardial infarction Stroke Father , age 31 in a gas explosion No problems noted. 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 [employer] Feels Safe at Home: Yes Assistive Devices: Glasses and Oxygen - Continuous Allergies Allergies Allergy/AdvReac Type Severity Reaction Status Date / Time No Known Allergies Allergy Verified 02/20/22 12:24 Home Meds Home Medications Medication Instructions Recorded Confirmed rosuvastatin 40 mg tablet 40 mg PO PM 09/17/19 02/27/22 cyanocobalamin (vitamin B-12) 100 100 mcg PO QAM 10/15/19 02/27/22 mcg tablet acetaminophen 325 mg tablet 650 mg PO DIRECTED PRN 10/03/20 02/27/22 (Tylenol) PAIN/FEVER diltiazem HCl 120 mg 120 mg PO PM 02/25/21 02/27/22 capsule,extended release 24 hr aspirin 325 mg tablet,delayed 325 mg PO DAILY 07/06/21 02/27/22 release tamsulosin 0.4 mg capsule 0.4 mg PO DAILY 07/06/21 02/27/22 apixaban 5 mg tablet (Eliquis) 2.5 mg PO BID 07/13/21 02/27/22 furosemide 40 mg tablet 50 mg PO BID 02/26/22 02/27/22 omeprazole 20 mg capsule,delayed 20 mg PO QAM 02/26/22 02/27/22 release Previous Rx's Medication Instructions Recorded isosorbide mononitrate 30 mg 30 mg PO QAM #30 tabs 06/22/20 tablet,extended release 24 hr metoprolol tartrate 50 mg tablet 50 mg PO BID #180 tabs 09/16/20 nitroglycerin 0.4 mg sublingual 0.4 mg sublingual Q5M PRN chest 10/28/21 tablet pain #1 btl Results & Data (ED) Vital Signs Vital Signs - 24 hr 02/27/22 09:06 Temperature 36.3 C L Temperature Source Temporal Artery Scan Pulse Rate 106 H Respiratory Rate 20 Respiratory Effort / Characteristics Non-Labored Respiratory Depth Normal Blood Pressure 162/71 H Blood Pressure Mean 101 Pulse Oximetry 94 Oxygen Delivery Method Room Air Sepsis Recent Fever Within 48 Hours No Sepsis New/Unexplained Change in Mental Status N/A Sepsis Action Taken by Nursing No Action Required Laboratory Data Result diagrams: 02/27/22 10:30 02/27/22 10:30 Lab Results 02/27/22 02/27/22 02/27/22 Range/Units 10:30 10:30 10:30 WBC 8.12 (4.8-10.8) K/ul RBC 4.32 L (4.63-6.08) M/uL Hgb 14.0 (14.0-18.0) g/dl Hct 41.5 (40.1-51.0) % MCV 96.1 (80.0-100.0) fL MCH 32.4 (25.0-34.0) pg MCHC 33.7 (32.0-36.0) g/dL RDW Std Deviation 53.2 H (36.4-46.3) fL RDW Coeff of Marilynn 15.0 H (11.5-14.5) % Plt Count 244 (130-400) K/uL MPV 9.7 (9.4-12.4) fL Immature Gran % (Auto) 0.5 % Neut % (Auto) 73.3 % Lymph % (Auto) 11.6 % [place] % (Auto) 12.3 % Eos % (Auto) 1.4 % Baso % (Auto) 0.9 % Neut # (Auto) 5.96 (1.4-6.5) K/uL Lymph # (Auto) 0.94 L (1.2-3.4) K/uL [place] # (Auto) 1.00 H (0.24-0.82) K/uL Eos # (Auto) 0.11 (0-0.50) K/uL Baso # (Auto) 0.07 (0-0.2) K/uL Immature Gran # (Auto) 0.04 H (0.00-0.02) K/uL PT 12.6 H (9.0-12.0) Seconds INR 1.2 H (0.9-1.1) Sodium 139 (136-145) mmol/L Potassium 3.6 (3.5-5.1) mmol/L Chloride 104 (98-107) mmol/L Carbon Dioxide 28 (21-32) mmol/L Anion Gap 7 (3-11) BUN 28 H (6-23) mg/dl Creatinine 1.50 H D (0.6-1.4) mg/dl Est Cr Clr Drug Dosing 43.0 ml/min Est GFR ( Amer) 50.2 ml/min Est GFR (Non-Af Amer) 43.3 ml/min BUN/Creatinine Ratio 18.7 (10-20) Glucose 98 (70-99(Fasting)) mg/dl Calcium 9.3 (8.5-10.1) mg/dl SARS-CoV-2, RNA, NAAT (NEGATIVE) 02/27/22 Range/Units 11:21 WBC (4.8-10.8) K/ul RBC (4.63-6.08) M/uL Hgb (14.0-18.0) g/dl Hct (40.1-51.0) % MCV (80.0-100.0) fL MCH (25.0-34.0) pg MCHC (32.0-36.0) g/dL RDW Std Deviation (36.4-46.3) fL RDW Coeff of Marilynn (11.5-14.5) % Plt Count (130-400) K/uL MPV (9.4-12.4) fL Immature Gran % (Auto) % Neut % (Auto) % Lymph % (Auto) % [place] % (Auto) % Eos % (Auto) % Baso % (Auto) % Neut # (Auto) (1.4-6.5) K/uL Lymph # (Auto) (1.2-3.4) K/uL [place] # (Auto) (0.24-0.82) K/uL Eos # (Auto) (0-0.50) K/uL Baso # (Auto) (0-0.2) K/uL Immature Gran # (Auto) (0.00-0.02) K/uL PT (9.0-12.0) Seconds INR (0.9-1.1) Sodium (136-145) mmol/L Potassium (3.5-5.1) mmol/L Chloride (98-107) mmol/L Carbon Dioxide (21-32) mmol/L Anion Gap (3-11) BUN (6-23) mg/dl Creatinine (0.6-1.4) mg/dl Est Cr Clr Drug Dosing ml/min Est GFR ( Amer) ml/min Est GFR (Non-Af Amer) ml/min BUN/Creatinine Ratio (10-20) Glucose (70-99(Fasting)) mg/dl Calcium (8.5-10.1) mg/dl SARS-CoV-2, RNA, NAAT NEGATIVE (NEGATIVE) Administered Medications Acetaminophen (Ofirmev) 1,000 mg in 100 mls @ 400 mls/hr IV Q8H PRN PRN Reason: Fever/Mild Pain (Pain 1,2,3) Stop: 03/02/22 12:12 Last Admin: 02/27/22 13:20 Dose: 400 mls/hr Documented By: RAYSA Ceftriaxone Sodium 2,000 mg/ (Dextrose) 70 mls @ 140 mls/hr IV Q24H TROY Stop: 03/09/22 15:29 Last Admin: 02/27/22 16:05 Dose: 140 mls/hr Documented By: QGV Discontinued Medications Ioversol (Optiray 350 100ml) 90 ml IV ONCE ONE Stop: 02/27/22 11:26 Last Admin: 02/27/22 11:26 Dose: 90 ml Documented By: MDJasmin Lidocaine (Lidocaine/Epineph/Tetracaine 1 Ea Syr) 1 each EXT NOW STA Stop: 02/27/22 09:54 Last Admin: 02/27/22 10:39 Dose: Not Given Documented By: NIRALI Lidocaine HCl (Lidocaine 2% Jelly 5 Ml Tube) Confirm Administered Dose 5 ml EXT .STK-MED ONE Stop: 02/27/22 10:03 Last Admin: 02/27/22 10:39 Dose: 5 ml Documented By: NIRALI Morphine Sulfate (Morphine Sulfate 10 Mg/Ml Carp/Vial) 6 mg IV NOW STA Stop: 02/27/22 10:28 Last Admin: 02/27/22 10:39 Dose: 6 mg Documented By: NIRALI Ondansetron HCl (Ondansetron Inj 2 Mg/Ml 2 Ml Vial) 4 mg IV NOW STA Stop: 02/27/22 10:28 Last Admin: 02/27/22 10:39 Dose: 4 mg Documented By: NIRALI Imaging Data Radiologist's Impression: Abdomen/Pelvis CT 02/27/22 10:42 CT OF THE ABDOMEN AND PELVIS WITH CONTRAST CLINICAL HISTORY: Hematuria. Lower abdominal pain. COMPARISON STUDY: CT of the abdomen and pelvis March 01, 2018 and right upper quadrant ultrasound March 14, 2019. TECHNIQUE: Following IV administration of 90 mL of Optiray, axial images of the abdomen and pelvis were obtained from the lung bases to the proximal femurs. Images were reviewed in the axial, sagittal, and coronal planes. IV contrast was administered without complication. Automated exposure control was utilized for the study. A dose lowering technique was utilized adhering to the principles of ALARA. CT DOSE: 869.36 mGy.cm FINDINGS: Cardiomegaly is incidentally noted. Lung bases are unremarkable. No pneumatosis, free air or portal venous gas is present. No hepatic lesions are pr esent. There is no biliary or pancreatic ductal dilatation. Spleen, adrenal glands and pancreas are unremarkable. Water attenuation bilateral renal lesions reflect cysts. There is no hydronephrosis. There is mild bilateral renal cortical thinning. A Shepard balloon within the bladder is noted. The bladder is collapsed. There is mild adjacent stranding. Prostate is enlarged, measuring 6.2 cm in transverse dimension. Tiny gallstones within gallbladder are noted. Gallbladder is slightly distended. There is no adjacent infiltration. The caliber and wall thickness of small and large bowel are normal. There is no lymphadenopathy. There is no ascites. No acute fracture or suspicious lesion within the visualized skeletal structures is present. IMPRESSION: 1. No urinary calculi or hydronephrosis. Enlarged prostate. Shepard balloon within the bladder which is collapsed. 2. No bowel obstruction. No bowel wall thickening. 3. Suspected tiny gallstones. No convincing evidence for acute cholecystitis. ACT 112: Negative or not required by law. Electronically signed by: Ortega Dsouza M.D. 02/27/2022 11:46 AM Discharge Plan Visit Data Chief Complaint: Hematuria Stated Complaint: BLEEDING IN URINE ED Provider: Nacho Fang Discharge Problem: Hematuria, BPH with obstruction/lower urinary tract symptoms, CKD (chronic kidney disease) Patient Disposition: Admitted As Inpatient Discharge Instructions Interventions: ED Discharge Assessment Last Done: 02/27/22 14:49
[2022-02-27] MEDS ORDERED: LIDOCAINE/EPINEPH/TETRACAINE 1 EA SYR EXT STA (09:53)
[2022-02-27] MEDS ORDERED: LIDOCAINE 2% JELLY 5 ML TUBE EXT ONE (10:02)
[2022-02-27] MEDS ORDERED: MoRPHine SULFATE 10 MG/ML CARP/VIAL IV STA (10:27)
[2022-02-27] MEDS ORDERED: ONDANSETRON INJ 2 MG/ML 2 ML VIAL IV STA (10:27)
[2022-02-27 10:43] LABS: Appearance Urine Turbid (Clear); Bilirubin Urine 1+ (Negative); Blood Urine 3+ (Negative); Color Urine Red; Glucose Urine UA Negative (Negative); Ketones Urine Negative (Negative); Leukocyte Esterase Urine 1+ (Negative); Nitrite Urine Negative (Negative); Protein Urine 3+ (Negative); Specific Gravity Urine >= 1.030 (1.000-1.030); Urobilinogen Urine Negative (Negative)
[2022-02-27 10:44] LABS: Basophils # (auto) 0.07 K/uL (0-0.2); Basophils % (auto) 0.9 %; Eosinophils # (auto) 0.11 K/uL (0-0.50); Eosinophils % (auto) 1.4 %; Hematocrit (blood only) 41.5 % (40.1-51.0); Immature Granulocytes # (auto) 0.04 K/uL (0.00-0.02); Immature Granulocytes % (auto) 0.5 %; Lymphocytes # (auto) 0.94 K/uL (1.2-3.4); Lymphocytes % (auto) 11.6 %; Mean Corpuscular Hemoglobin 32.4 pg (25.0-34.0); Mean Corpuscular Hgb Conc 33.7 g/dL (32.0-36.0); Mean Corpuscular Volume 96.1 fL (80.0-100.0); Mean Platelet Volume 9.7 fL (9.4-12.4); Monocytes % (auto) 12.3 %; Neutrophils # (auto) 5.96 K/uL (1.4-6.5); Neutrophils % (auto) 73.3 %; Platelet Count 244 K/uL (130-400); RDW Standard Deviation 53.2 fL (36.4-46.3); Red Blood Count 4.32 M/uL (4.63-6.08); White Blood Count 8.12 K/ul (4.8-10.8)
[2022-02-27 10:47] LABS: Epithelial Cell Urine 0-5 /lpf (0-5)
[2022-02-27 10:48] LABS: Bacteria Urine Negative (Negative); Hyaline Casts Urine 0-5 /lpf (0-5)
[2022-02-27 10:49] LABS: WBC Urine >30 /hpf (0-5)
[2022-02-27 10:52] LABS: RBC Urine >30 /hpf (0-4)
[2022-02-27 10:57] LABS: INR 1.2 (0.9-1.1); Prothrombin Time 12.6 Seconds (9.0-12.0)
[2022-02-27 11:02] LABS: BUN Creatinine Ratio 18.7 (10-20); Calcium 9.3 mg/dl (8.5-10.1); Est GFR (African American) 50.2 ml/min; Est GFR (Non-African American) 43.3 ml/min; Potassium 3.6 mmol/L (3.5-5.1)
--- NOTE | 2022-02-27 11:02 | History & Physical Report ---
Date of Service February 27, 2022 Assessment & Plan (1) Hematuria: Plan: 81-year-old male with a past medical history of TURP, CAD s/p CABG without PCI/stents, weakness, permanent A. fib on Xarelto, CKD, hypertension, hyperlipidemia who presents with recurrent hematuria and Shepard obstruction with clot and worsening abdominal pain. He was treated with CBI with improvement in pain in the ER. Hematuria, urinary obstruction - CT-A/P: 1. No urinary calculi or hydronephrosis. Enlarged prostate. Shepard balloon within the bladder which is collapsed. 2. No bowel obstruction. No bowel wall thickening.3. Suspected tiny gallstones. No convincing evidence for acute cholecystitis. Creatinine1.5 on admission with baseline approximately 1.42.0 Pain significantly improved following CBI, irrigating light pink urine Potassium normal No leukocytosis Since CBI started we will add Rocephin for prophylaxis. Cipro deferred due to QT borderline prolonged Hemoglobin 14.0 History of CHF, history of CABG, no history of PCI/stents Appears relatively euvolemic Comfortable laying flat, no orthopnea at visit, is on room air satting well Continue home Lasix dosing at this time Continue metoprolol, isosorbide Patient takes full dose aspirin at home. Discussed with patient, he reports that he was originally on a baby aspirin and switched as full dose aspirin was cheaper. He denies any history of strokes, cardiac stents, or other stents and has not been recommended to have a full dose aspirin per his doctor. Given hematuria with clot and bleeding pending potential cystoscopy will hold aspirin today, when resumed recommend resuming at 81 mg dose to minimize risk of bleeding. Permanent A. fib Adequate rate control with diltiazem, metoprolol Initially tachycardic, rate irregular but controlled in 80s on reassessment Continue apixaban for prophylaxis, hold if worsens/hemodynamically significant bleeding [id number] >3, high risk CKD Admitting creatinine at baseline, baseline approximately 1.42.0 Renally dose medications as appropriate BMP daily Hypertension Continue metoprolol, isosorbide, diltiazem as noted. Blood pressure slightly increased in the setting of discomfort from Shepard clot, improved on reassessment. May add hydralazine 5 mg IV every 6 hours if needed for hypertension greater than 180 and pain adequately controlled Anxiety Continue home lorazepam Diet: N.p.o. Code: Full Disposition: Medical/surgical. No evidence of RVR, significant electrolyte derangement, chest pain, or sepsis at admission. (2) Hyperlipidemia: (3) Permanent atrial fibrillation: (4) Right heart failure with reduced right ventricular function: (5) SOB (shortness of breath): (6) Chronic heart failure with preserved ejection fraction: (7) CAD (coronary artery disease), [place] coronary artery: History of Present Illness Primary Care Provider: Shannen Cardenas MD Trav is an 81-year-old male with a past medical history of heart failure with preserved ejection fraction, A. fib on apixaban, CAD, hypertension, pulmonary hypertension who was had recurrent Shepard obstruction. Patient pr esents to the ER with clots around shepard, abdominal pressure. Day prior to yesterday had hematuria. Seen in ER, had shepard exhange and was scheduled w Urology followup sunday yesterday dramatic increase in pain, only small amounts of blood comign out around shepard. 8-10/10 intense pressure like pain. 0/10 pain, slight tingling since pain control and folehy placed in ER Discussed with Uro. CBI placed. CT-A/P pending. Pain improved with 'elephant catheter' an dirrigation Thinks it started after a shepard removed last month during a CHF admission Took all meds except lasix this morning Laying on his back comfortable No shortness of breath No ches tpain No chest pressure Hx of CHF last month, breathing comfortably since. Denies leg swelling. Medical History: Reviewed Medications: Reviewed. NKDA Surgical History: Reviewed Allergies: Reviewed Social History: No tobacco or etoh. Code Status: Emergency contact would be ramiro Mead. Full Code. Allergies Allergy/AdvReac Type Severity Reaction Status Date / Time No Known Allergies Allergy Verified 02/20/22 12:24 Home Medications Medication Instructions Recorded Confirmed Type rosuvastatin 40 mg tablet 40 mg PO PM 09/17/19 02/27/22 History cyanocobalamin (vitamin B-12) 100 100 mcg PO QAM 10/15/19 02/27/22 History mcg tablet isosorbide mononitrate 30 mg 30 mg PO QAM #30 tabs 06/22/20 02/27/22 Rx tablet,extended release 24 hr metoprolol tartrate 50 mg tablet 50 mg PO BID #180 tabs 09/16/20 02/27/22 Rx acetaminophen 325 mg tablet 650 mg PO DIRECTED PRN 10/03/20 02/27/22 History (Tylenol) PAIN/FEVER diltiazem HCl 120 mg 120 mg PO PM 02/25/21 02/27/22 History capsule,extended release 24 hr aspirin 325 mg tablet,delayed 325 mg PO DAILY 07/06/21 02/27/22 History release tamsulosin 0.4 mg capsule 0.4 mg PO DAILY 07/06/21 02/27/22 History apixaban 5 mg tablet (Eliquis) 2.5 mg PO BID 07/13/21 02/27/22 History nitroglycerin 0.4 mg sublingual 0.4 mg sublingual Q5M PRN chest 10/28/21 02/27/22 Rx tablet pain #1 btl furosemide 40 mg tablet 50 mg PO BID 02/26/22 02/27/22 History omeprazole 20 mg capsule,delayed 20 mg PO QAM 02/26/22 02/27/22 History release Past Med/Surg History Medical History Acute alteration in mental status Acute kidney injury Aortic insufficiency BPH with obstruction/lower urinary tract symptoms CAD (coronary artery disease), [place] coronary artery Chronic diastolic heart failure Chronic heart failure with preserved ejection fraction Chronic kidney disease Confusion Fall History of anesthesia reaction CONVULSIONS POST OP QUICK COMING AWAKE FROM CABG SURG 20 YRS AGO. DENIES SEIZURES, SAYS HE 'WOKE UP TOO QUICKLY' AND THEY PUT HIM BACK UNDER Hyperlipidemia Hypertension Mitral regurgitation Permanent atrial fibrillation Pulmonary hypertension Surgical History H/O colonoscopy S/P CABG x 2 S/P TURP Family History Brother Family history of esophageal cancer Mother , age 73 of a stroke and [place] Myocardial infarction Stroke Father , age 31 in a gas explosion No problems noted. 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 NAD. Cooperative. HEENT: Atraumatic, normocephalic. Vision and hearing grossly intact Pulm: Laying flat comfortably CTAB A&P. -wheezes, -rales, -rhonchi. Symmetrical chest rise. No increased work of breathing. No respiratory distress. Cardiac: Irregularly irregular. Radial pulses intact and symmetrical. Abdominal: Nontender, nondistended, soft. BS present. : CBI catheter in place draining light pink urine. Scant bleeding/clot present at the glans around Shepard Extremities: Warm, dry. Trace ankle edema, no gross pitting edema Results & Data Results & Data ([facility]) Vital Signs (Past 12 Hours) Vital Signs Temp Pulse Resp BP Pulse Ox O2 Del Method 02/27/22 09:06 36.3 C L 106 H 20 162/71 H 94 Room Air PG Care Time/CCT Total # of Minutes Spent Total Time Spent with Patient: Total time spent is greater than 50% in coordination of care (as documented) at patient's floor/unit and/or counseling patient: Coding Level of Care Code INT OBSERVATION CARE 50M LVL 2 Diagnoses Hematuria R31.9 Hematuria type: unspecified type Hyperlipidemia E78.5 Hyperlipidemia type: unspecified Permanent atrial fibrillation I48.21 Right heart failure with reduced right ventricular function I50.810 SOB (shortness of breath) R06.02 Chronic heart failure with preserved ejection fraction I50.32 CAD (coronary artery disease), [place] coronary artery I25.10 Associated angina: without angina [place] vs. transplanted heart: [place] heart (1) Hematuria Hematuria type: unspecified type Qualified Code(s): R31.9 - Hematuria, unspecified (2) Hyperlipidemia Hyperlipidemia type: unspecified Qualified Code(s): E78.5 - Hyperlipidemia, unspecified (3) CAD (coronary artery disease), [place] coronary artery Associated angina: without angina [place] vs. transplanted heart: [place] heart Qualified Code(s): I25.10 - Atherosclerotic heart disease of [place] coronary artery without angina pectoris
[2022-02-27] MEDS ORDERED: OPTIRAY 350 100ml IV ONE (11:25)
--- NOTE | 2022-02-27 11:25 | Urology Consultation ---
Date of Consultation February 27, 2022 Assessment & Plan (1) Hematuria: (2) Malfunction of Bernstein catheter: 81-year-old male admitted due to persistent hematuria and multiple ER presentations for obstructed catheter. - He is febrile and hemodynamically stable. - Lab work reviewed - creatinine 1.50, WBC 8.12, and Hgb 14.0. Continue to trend labs. - Urine culture is pending. UC&S on 02/26 is prelim no growth. - Recommend continue Rocephin due to continuous bladder irrigation. - CT A/P reviewed and Bernstein appears in good position, bladder decompressed. - Bernstein intact and draining clear urine with CBI at rapid rate. CBI slowed to moderate during my exam, RN made aware. - No acute intervention at present. - Continue CBI with plan to titrate down as appropriate. - Okay to gently hand irrigate prn suprapubic pain, clot retention. - Continue supportive care, antibiotics, and management per primary team. - Recommend cystoscopy for further evaluation of hematuria, but likely can be done as an outpatient if improving. - will continue to follow closely. History of Present Illness Reason for Consultation: Hematuria Requesting Physician: Dr. Iglesias Attending Physician: Dr. Iglesias History of Present Illness This is an 81-year-old male with past medical history of CHF, CAD status post CABG x2, hypertension, hyperlipidemia, permanent atrial fibrillation on anticoagulation, pulmonary hypertension, chronic kidney disease, and BPH who presented to the emergency department today due to persistent hematuria and an obstructed Bernstein catheter. Patient was recently hospitalized for a CHF exacerbation. He had a Bernstein catheter during his hospitalization which was removed prior to discharge and then he subsequently developed hematuria. Patient presented to the ER x 2 on 02/26/22 for hematuria and then returned due to an obstructed catheter. He was initially treated with continuous bladder irrigation, and then he wished to go home per notes. He returned due to an obstructed catheter. Per notes, manual irrigation was employed. He returned again today due to obstructed Bernstein catheter and has been started on continuous bladder irrigation. On arrival today, he was afebrile. Lab work reviewed and creatinine 1.50, WBC 8.12, and Hgb 14.0. Urinalysis showed turbid urine, 3+ protein, 3+ blood, 1+ leukocyte esterase, >30 RBC, >30 WBC. Urine culture is pending. Prior urine culture from 02/26 is preliminary no growth. A CT A/P with IV contrast reviewed and shows no urinary calculi or hydronephrosis, bilateral renal cysts. Enlarged prostate noted. Bernstein catheter appears in good position and bladder is decompressed. Urology is consulted for hematuria. He is known to our service. Previously followed with Dr. Crystal for BPH with LUTS and is s/p TURP on 05/09/18. Patient seen and examined in ER. He is awake and resting in litter, appears co mfortable. He denies flank, abdominal or suprapubic pain at present. He previously was feeling pain at the tip of his penis and this is now resolved. No dysuria. Bernstein catheter intact and draining clear with CBI open. Per RN at bedside, he has been manually irrigated x 2 since his arrival with return of a few medium sized clots. No nausea or vomiting. No fever or chills. He reports that he has been doing well s/p TURP in 2019. Reports a strong stream, no hesitancy, improvement in nocturia, and denies urgency and frequency. No known family history of malignancy. Allergies Allergy/AdvReac Type Severity Reaction Status Date / Time No Known Allergies Allergy Verified 02/20/22 12:24 Home Medications Medication Instructions Recorded Confirmed Type rosuvastatin 40 mg tablet 40 mg PO PM 09/17/19 02/27/22 History cyanocobalamin (vitamin B-12) 100 100 mcg PO QAM 10/15/19 02/27/22 History mcg tablet isosorbide mononitrate 30 mg 30 mg PO QAM #30 tabs 06/22/20 02/27/22 Rx tablet,extended release 24 hr metoprolol tartrate 50 mg tablet 50 mg PO BID #180 tabs 09/16/20 02/27/22 Rx acetaminophen 325 mg tablet 650 mg PO DIRECTED PRN 10/03/20 02/27/22 History (Tylenol) PAIN/FEVER diltiazem HCl 120 mg 120 mg PO PM 02/25/21 02/27/22 History capsule,extended release 24 hr aspirin 325 mg tablet,delayed 325 mg PO DAILY 07/06/21 02/27/22 History release tamsulosin 0.4 mg capsule 0.4 mg PO DAILY 07/06/21 02/27/22 History apixaban 5 mg tablet (Eliquis) 2.5 mg PO BID 07/13/21 02/27/22 History nitroglycerin 0.4 mg sublingual 0.4 mg sublingual Q5M PRN chest 10/28/21 02/27/22 Rx tablet pain #1 btl furosemide 40 mg tablet 50 mg PO BID 02/26/22 02/27/22 History omeprazole 20 mg capsule,delayed 20 mg PO QAM 02/26/22 02/27/22 History release Patient History Medical History Acute alteration in mental status Acute kidney injury Aortic insufficiency BPH with obstruction/lower urinary tract symptoms CAD (coronary artery disease), [place] coronary artery Chronic diastolic heart failure Chronic heart failure with preserved ejection fraction Chronic kidney disease Confusion Fall History of anesthesia reaction CONVULSIONS POST OP QUICK COMING AWAKE FROM CABG SURG 20 YRS AGO. DENIES SEIZURES, SAYS HE 'WOKE UP TOO QUICKLY' AND THEY PUT HIM BACK UNDER Hyperlipidemia Hypertension Mitral regurgitation Permanent atrial fibrillation Pulmonary hypertension Surgical History H/O colonoscopy S/P CABG x 2 S/P TURP Family History Brother Family history of esophageal cancer Mother , age 73 of a stroke and [place] Myocardial infarction Stroke Father , age 31 in a gas explosion No problems noted. 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 [employer] Feels Safe at Home: Yes Assistive Devices: Glasses and Oxygen - Continuous Review of Systems Review of Systems: All systems reviewed & are unremarkable except as noted in HPI & below Physical Exam Constitutional: well developed and well nourished; no acute distress Eyes: no scleral abnormality Respiratory: normal respiratory effort; no respiratory distress and no labored breathing Cardiovascular: Extremities: no pedal edema Gastrointestinal (Abdomen): Inspection/Auscultation: abdomen normal to inspection; abdomen not distended Percussion/Palpation: abdomen soft; abdomen nontender and no guarding Musculoskeletal: Head/Neck/Chest: normocephalic and head atraumatic Neurologic: moves all extremities and awake Psychiatric: Orientation: alert and oriented x 3 Genitourinary: Bersntein intact, patent and draining clear with CBI open. CBI slowed to moderate rate during exam and RN made aware. Results & Data ([facility]) Vital Signs (Past 12 Hours) Vital Signs Temp Pulse Resp BP Pulse Ox O2 Del Method 02/27/22 09:06 36.3 C L 106 H 20 162/71 H 94 Room Air PG Care Time/CCT Total # of Minutes Spent Total Time Spent with Patient: Total time spent is greater than 50% in coordination of care (as documented) at patient's floor/unit and/or counseling patient: Coding Level of Care Code 84878 Initial Inpt Care Lvl 2 Diagnoses Hematuria R31.9 Malfunction of Bernstein catheter T83.011A
--- NOTE | 2022-02-27 11:49 | CT Scan Report ---
CT OF THE ABDOMEN AND PELVIS WITH CONTRAST CLINICAL HISTORY: Hematuria. Lower abdominal pain. COMPARISON STUDY: CT of the abdomen and pelvis March 01, 2018 and right upper quadrant ultrasound March 14, 2019. TECHNIQUE: Following IV administration of 90 mL of Optiray, axial images of the abdomen and pelvis we re obtained from the lung bases to the proximal femurs. Images were reviewed in the axial, sagittal, and coronal planes. IV contrast was administered without complication. Automated exposure control wa s utilized for the study. A dose lowering technique was utilized adhering to the principles of ALARA . CT DOSE: 869.36 mGy.cm FINDINGS: Cardiomegaly is incidentally noted. Lung bases are unremarkable. No pneumatosis, free air o r portal venous gas is present. No hepatic lesions are present. There is no biliary or pancreatic [place] dilatation. Spleen, adrenal glands and pancreas are unremarkable. Water attenuation bilateral sarah al lesions reflect cysts. There is no hydronephrosis. There is mild bilateral renal cortical thinning . A Bernstein balloon within the bladder is noted. The bladder is collapsed. There is mild adjacent stran ding. Prostate is enlarged, measuring 6.2 cm in transverse dimension. Tiny gallstones within gallblad marilu are noted. Gallbladder is slightly distended. There is no adjacent infiltration. The caliber and wall thickness of small and large bowel are normal. There is no lymphadenopathy. There is no ascites. No acute fracture or suspicious lesion within the visualized skeletal structures is present. IMPRESSION: 1. No urinary calculi or hydronephrosis. Enlarged prostate. Bernstein balloon within the bladder which is collapsed. 2. No bowel obstruction. No bowel wall thickening. 3. Suspected tiny gallstones. No convincing evidence for acute cholecystitis. ACT 112: Negative or not required by law. Electronically signed by: Ortega Dsouza M.D. 02/27/2022 11:46 AM
[2022-02-27] MEDS ORDERED: MoRPHine SULFATE 2 MG/ML CARP IV PRN (11:51)
[2022-02-27] MEDS ORDERED: ACETAMINOPHEN 1,000 MG/100 ML VIAL IV PRN (12:13)
[2022-02-27] MEDS ORDERED: cefTRIAXone SODIUM 1,000 MG in DEXTROSE 5% 50 ML IV SCH (14:48)
[2022-02-27] MEDS ORDERED: ONDANSETRON INJ 2 MG/ML 2 ML VIAL IV PRN (14:48)
[2022-02-27] MEDS ORDERED: NITROGLYCERIN SL 0.4 MG/TAB TAB SL PRN (14:48)
[2022-02-27] MEDS ORDERED: cefTRIAXone SODIUM 2,000 MG in DEXTROSE 5% 50 ML IV SCH (15:30)
[2022-02-27] MEDS: NSS + 20MEQ KCL 20 MEQ/1,000 ML BAG IV SCH (16:38)
[2022-02-27] MEDS: ROSUVASTATIN CALCIUM 20 MG TAB PO SCH (21:01)
[2022-02-27] MEDS: METOPROLOL TARTRATE 50 MG TAB PO SCH (21:01)
[2022-02-27] MEDS: dilTIAZem HCL 120 MG CAPCR PO SCH (21:01)
[2022-02-28] MEDS: NSS + 20MEQ KCL 20 MEQ/1,000 ML BAG IV SCH ×2 (07:03→20:58)
[2022-02-28] MEDS: TAMSULOSIN HCL 0.4 MG CAP PO SCH (10:06)
[2022-02-28] MEDS: CYANOCOBALAMIN (B-12) 100 MCG TABLET PO SCH (10:06)
[2022-02-28] MEDS: FUROSEMIDE 40 MG TAB PO SCH ×2 (10:07→21:01)
[2022-02-28] MEDS: METOPROLOL TARTRATE 50 MG TAB PO SCH ×2 (10:08→21:00)
[2022-02-28] MEDS: ISOSORBIDE MONO EXTENDED REL 30 MG TABCR PO SCH (10:08)
[2022-02-28 10:47] LABS: Basophils # (auto) 0.06 K/uL (0-0.2); Basophils % (auto) 0.9 %; Eosinophils # (auto) 0.14 K/uL (0-0.50); Hematocrit (blood only) 40.1 % (40.1-51.0); Hemoglobin 12.8 g/dl (14.0-18.0); Immature Granulocytes # (auto) 0.02 K/uL (0.00-0.02); Immature Granulocytes % (auto) 0.3 %; Lymphocytes # (auto) 0.71 K/uL (1.2-3.4); Lymphocytes % (auto) 10.4 %; Mean Corpuscular Hemoglobin 31.7 pg (25.0-34.0); Mean Corpuscular Hgb Conc 31.9 g/dL (32.0-36.0); Mean Corpuscular Volume 99.3 fL (80.0-100.0); Mean Platelet Volume 9.6 fL (9.4-12.4); Monocytes # (auto) 0.81 K/uL (0.24-0.82); Monocytes % (auto) 11.9 %; Neutrophils # (auto) 5.09 K/uL (1.4-6.5); Neutrophils % (auto) 74.5 %; Platelet Count 208 K/uL (130-400); RDW Coefficient of Variation 15.1 % (11.5-14.5); RDW Standard Deviation 55.6 fL (36.4-46.3); Red Blood Count 4.04 M/uL (4.63-6.08); White Blood Count 6.83 K/ul (4.8-10.8)
[2022-02-28] MEDS: PANTOprazole 40 MG TAB PO SCH (11:10)
[2022-02-28 11:21] LABS: Calcium 8.9 mg/dl (8.5-10.1); Creatinine Clr Calc Pharmacy 53.5 ml/min; Est GFR (African American) 65.8 ml/min; Est GFR (Non-African American) 56.8 ml/min; Potassium 3.8 mmol/L (3.5-5.1)
[2022-02-28] MEDS: APIXABAN 2.5 MG TAB PO SCH ×2 (11:55→21:03)
--- NOTE | 2022-02-28 14:08 | Urology Progress Note ---
Date of Service February 28, 2022 Assessment & Plan (1) Hematuria: Admission and Anticipated Discharge Date Admission Date: February 27, 2022 Supervising Physician Co-Signing Physician Notes I have discussed Mr. Dhillon's hematuria seems to be clearing with catheter and conservative management with slow CBI. Case with NICOLASA Ponce and agree with the above documentation. We will hold off on operative intervention for now. Continue to gradually wean CBI and maintain catheter. Urology will follow along. Subjective Patient examined at bedside this afternoon. Awake, resting bed on arrival. No acute distress. Denies any significant pain at present. Does note occasional bladder pain/spasms, requesting Pyridium. Bernstein catheter intact, draining clear urine with CBI on slow drip. No hematuria or clots noted at time of exam. Review of Systems Constitutional: as per Subjective / HPI Genitourinary: + as per Subjective / HPI Physical Exam Constitutional: no acute distress Respiratory: no respiratory distress and no labored breathing Gastrointestinal (Abdomen): Percussion/Palpation: abdomen soft; abdomen nontender Neurologic: awake Psychiatric: A+Ox3, euthymic affect Genitourinary: Bernstein catheter intact Results & Data ([facility]) Vital Signs (Past 12 Hours) Vital Signs Temp Pulse Pulse Resp BP Pulse Ox O2 Del Method 02/28/22 10:05 93 H 18 130/68 94 Room Air 02/28/22 07:36 36.8 C 85 18 134/64 92 Room Air PG Care Time/CCT Total # of Minutes Spent Total Time Spent with Patient: Total time spent is greater than 50% in coordination of care (as documented) at patient's floor/unit and/or counseling patient: Coding Level of Care Code 15053 Subseq Hosp Care Lvl 2 Diagnoses Hematuria R31.9
[2022-02-28] MEDS: PHENAZOPYRIDINE HCL 200 MG TAB PO PRN ×2 (14:49→23:59)
[2022-02-28] MEDS ORDERED: MELATONIN 3 MG TAB PO PRN ×2 (20:01→20:27)
--- NOTE | 2022-02-28 20:35 | Hospitalist Progress Note ---
Date of Service February 28, 2022 Assessment & Plan (1) Hematuria: Plan: 81-year-old male with a past medical history of TURP, CAD s/p CABG without PCI/stents, weakness, permanent A. fib on Xarelto, CKD, hypertension, hyperlipidemia who presents with recurrent hematuria and Bernstein obstruction with clot and worsening abdominal pain. He was treated with CBI with improvement in pain in the ER. Hematuria, urinary obstruction - CT-A/P: 1. No urinary calculi or hydronephrosis. Enlarged prostate. Bernstein balloon within the bladder which is collapsed. 2. No bowel obstruction. No bowel wall thickening.3. Suspected tiny gallstones. No convincing evidence for acute cholecystitis. Creatinine1.5 on admission with baseline approximately 1.42.0 Pain significantly improved following CBI, irrigating light pink urine- appreciate urology helpno procedure planned No leukocytosis Antibiotics stopped- hemoglobin maintained around 12.8 History of CHF, history of CABG, no history of PCI/stents Appearseuvolemic Comfortable laying flat, no orthopnea at visit, is on room air satting well Continue home Lasix dosing at this time Continue metoprolol, isosorbide Patient takes full dose aspirin at home. Discussed with patient, he reports t hat he was originally on a baby aspirin and switched as full dose aspirin was cheaper. He denies any history of strokes, cardiac stents, or other stents and has not been recommended to have a full dose aspirin per his doctor. Given hematuria with clot and bleeding pending potential cystoscopy will hold aspirin today, when resumed recommend resuming at 81 mg dose to minimize risk of bleeding. Permanent A. fib Adequate rate control with diltiazem, metoprolol Initially tachycardic, rate irregular but controlled in 80s on reassessment Continue apixaban for prophylaxis, hold if worsens/hemodynamically significant bleeding [id number] >3, high risk CKD Admitting creatinine at baseline, baseline approximately 1.42.0 Renally dose medications as appropriate BMP daily Hypertension Continue metoprolol, isosorbide, diltiazem as noted. Blood pressure slightly increased in the setting of discomfort from Bernstein clot, improved on reassessment. May add hydralazine 5 mg IV every 6 hours if needed for hypertension greater than 180 and pain adequately controlled Anxiety Continue home lorazepam Diabetic diet Code: Full Disposition: Medical/surgical. (2) Hyperlipidemia: (3) Permanent atrial fibrillation: (4) Right heart failure with reduced right ventricular function: (5) SOB (shortness of breath): (6) Chronic heart failure with preserved ejection fraction: (7) CAD (coronary artery disease), [place] coronary artery: Admission and Anticipated Discharge Date Admission Date: February 27, 2022 Subjective Patient seen at 4:40 PM today. Was joking as usual and his daughter was at his bedside. Feels well. Urine is lightening now. Denies any orthopnea or PND. No leg swelling or shortness of breath. CHF is stable he thinks. Is prescribed oxygen as needed has never had a sleep study. Has been evaluated for COPD in the past and the testing was normal he says. Earlier the patient was asking the nurse for some sleeping pill at night. Physical Exam Physical Exam: Cheerful and joking, overweight pleasant male, sitting up in bed chatting with his daughter, comfortable on room air Chest is clear to auscultation CVS S1-S2 regular Abdomen slightly distended next line Bernstein catheter in place with diluted red colored urine, [employer] grossly intact normal affect, judgment and insight Results & Data Results & Data ([facility]) Vital Signs (Past 12 Hours) Vital Signs Temp Pulse Resp BP Pulse Ox O2 Del Method 02/28/22 15:03 37 C 96 H 16 129/65 97 Room Air 02/28/22 10:05 93 H 18 130/68 94 Room Air Laboratory Results Abnormal lab results 02/28/22 02/28/22 Range/Units 10:13 10:13 RBC 4.04 L (4.63-6.08) M/uL Hgb 12.8 L (14.0-18.0) g/dl MCHC 31.9 L (32.0-36.0) g/dL RDW Std Deviation 55.6 H (36.4-46.3) fL RDW Coeff of Marilynn 15.1 H (11.5-14.5) % Lymph # (Auto) 0.71 L (1.2-3.4) K/uL Glucose 128 H (70-99(Fasting)) mg/dl PG Care Time/CCT Total # of Minutes Spent Total Time Spent with Patient: Total time spent is greater than 50% in coordination of care (as documented) at patient's floor/unit and/or counseling patient: Coding Level of Care Code 74473 Subseq Hosp Care Lvl 2 Diagnoses Hematuria R31.9 Hematuria type: unspecified type Hyperlipidemia E78.5 Hyperlipidemia type: unspecified Permanent atrial fibrillation I48.21 Right heart failure with reduced right ventricular function I50.810 SOB (shortness of breath) R06.02 Chronic heart failure with preserved ejection fraction I50.32 CAD (coronary artery disease), [place] coronary artery I25.10 [place] vs. transplanted heart: [place] heart Associated angina: without angina (1) Hematuria Hematuria type: unspecified type Qualified Code(s): R31.9 - Hematuria, unspecified (2) Hyperlipidemia Hyperlipidemia type: unspecified Qualified Code(s): E78.5 - Hyperlipidemia, unspecified (3) CAD (coronary artery disease), [place] coronary artery [place] vs. transplanted heart: [place] heart Associated angina: without angina Qualified Code(s): I25.10 - Atherosclerotic heart disease of [place] coronary artery without angina pectoris
[2022-02-28] MEDS: dilTIAZem HCL 120 MG CAPCR PO SCH (21:00)
[2022-02-28] MEDS: ROSUVASTATIN CALCIUM 20 MG TAB PO SCH (21:02)
[2022-03-01] MEDS: MoRPHine SULFATE 4 MG/ML 1 ML CARP\\VIAL IV PRN ×3 (04:54→11:36)
[2022-03-01] MEDS: APIXABAN 2.5 MG TAB PO SCH ×2 (08:01→20:22)
[2022-03-01] MEDS: ISOSORBIDE MONO EXTENDED REL 30 MG TABCR PO SCH (08:01)
[2022-03-01] MEDS: CYANOCOBALAMIN (B-12) 100 MCG TABLET PO SCH (08:01)
[2022-03-01] MEDS: METOPROLOL TARTRATE 50 MG TAB PO SCH ×2 (08:01→20:28)
[2022-03-01] MEDS: TAMSULOSIN HCL 0.4 MG CAP PO SCH (08:01)
[2022-03-01] MEDS: PANTOprazole 40 MG TAB PO SCH (08:01)
[2022-03-01] MEDS: FUROSEMIDE 40 MG TAB PO SCH ×2 (08:02→20:28)
--- NOTE | 2022-03-01 09:38 | Urology Progress Note ---
Date of Service March 01, 2022 Assessment & Plan (1) Hematuria: Plan 81-year-old male admitted due to persistent hematuria and multiple ER presentations for obstructed catheter. - He is febrile and hemodynamically stable. - Lab work 02/28-no leukocytosis, normal renal function. - Urine culture prelim no growth. UC&S on 02/26 negative. - CBI clamped at 0850- Nursing aware. Will reassess later this morning. - Maintain Bernstein catheter. Okay to gently hand irrigate prn suprapubic pain, clot retention. - Will need outpatient cystoscopy for further evaluation of hematuria. - Continue Flomax and prn Pyridium. Can consider addition of prn oxybutynin for bladder spasms if no contraindications. - Urology will follow. - Pt reassessed this morning. - Urine is light orange in color off CBI. No clots noted. - Ok for voiding trial now and monitor for ability to void- Nursing aware. - Continue prn pyridium and pain management. - Will need outpatient cystoscopy for further evaluation of hematuria -Pt is agreeable. - Discussed plan with hospital team. - Urology will follow. Admission and Anticipated Discharge Date Admission Date: February 27, 2022 Subjective Patient examined at bedside this AM. Awake, resting bed on arrival. No acute distress. Denies any significant pain at present. Does note occasional bladder pain/spasms, utilizing prn pyridium. Bernstein catheter intact, draining clear urine with CBI on slow drip. No hematuria or clots noted at time of exam. No fevers. Review of Systems Constitutional: as per Subjective / HPI; no fever and no chills Gastrointestinal: no abdominal pain, no nausea and no vomiting Genitourinary: + as per Subjective / HPI Physical Exam Constitutional: no acute distress Respiratory: no respiratory distress and no labored breathing Neurologic: awake Psychiatric: A+Ox3, euthymic affect Genitourinary: Bernstein catheter intact Results & Data ([facility]) Vital Signs (Past 12 Hours) Vital Signs Temp Pulse Resp BP Pulse Ox O2 Del Method 03/01/22 07:04 36.7 C 76 16 135/66 93 Room Air PG Care Time/CCT Total # of Minutes Spent Total Time Spent with Patient: Total time spent is greater than 50% in coordination of care (as documented) at patient's floor/unit and/or counseling patient: Coding Level of Care Code 82567 Subseq Hosp Care Lvl 2 Diagnoses Hematuria R31.9
[2022-03-01] MEDS ORDERED: LIDOCAINE 2% JELLY 5 ML TUBE EXT ONE (11:30)
[2022-03-01] MEDS: NSS + 20MEQ KCL 20 MEQ/1,000 ML BAG IV SCH (11:33)
[2022-03-01] MEDS ORDERED: POLYETHYLENE (MIRALAX) 17 GM PACK PO PRN (15:27)
[2022-03-01] MEDS ORDERED: INFLUENZA VACCINE HIGH DOSE PF 65+ 0.7 ML SYR IM ONE (16:01)
[2022-03-01] MEDS ORDERED: PNEUMOCOCCAL POLYSACCHARIDES 25 MCG/0.5 ML VIAL/SYR IM ONE (17:00)
--- NOTE | 2022-03-01 19:10 | Hospitalist Progress Note ---
Date of Service March 01, 2022 Assessment & Plan (1) Hematuria: Plan: 81-year-old male with a past medical history of TURP, CAD s/p CABG without PCI/stents, weakness, permanent A. fib on Xarelto, CKD, hypertension, hyperlipidemia who presents with recurrent hematuria and [place] obstruction with clot and worsening abdominal pain. He was treated with CBI with improvement in pain in the ER. Hematuria, urinary obstruction - CT-A/P: 1. No urinary calculi or hydronephrosis. Enlarged prostate. [place] balloon within the bladder which is collapsed. 2. No bowel obstruction. No bowel wall thickening.3. Suspected tiny gallstones. No convincing evidence for acute cholecystitis. Creatinine1.5 on admission with baseline approximately 1.42.0 Pain significantly improved following CBI, irrigating light pink urine- appreciate urology helpno procedure planned No leukocytosis Antibiotics stopped- hemoglobin maintained around 12.8 History of CHF, history of CABG, no history of PCI/stents Appearseuvolemic Comfortable laying flat, no orthopnea at visit, is on room air satting well Continue home Lasix dosing at this time Continue metoprolol, isosorbide Patient takes full dose aspirin at home. Discussed with patient, he reports t hat he was originally on a baby aspirin and switched as full dose aspirin was cheaper. He denies any history of strokes, cardiac stents, or other stents and has not been recommended to have a full dose aspirin per his doctor. Given hematuria with clot and bleeding pending potential cystoscopy will hold aspirin today, when resumed recommend resuming at 81 mg dose to minimize risk of bleeding. Permanent A. fib Adequate rate control with diltiazem, metoprolol Initially tachycardic, rate irregular but controlled in 80s on reassessment Continue apixaban for prophylaxis, hold if worsens/hemodynamically significant bleeding [id number] >3, high risk CKD Admitting creatinine at baseline, baseline approximately 1.42.0 Renally dose medications as appropriate BMP daily Hypertension Continue metoprolol, isosorbide, diltiazem as noted. Blood pressure slightly increased in the setting of discomfort from [place] clot, improved on reassessment. May add hydralazine 5 mg IV every 6 hours if needed for hypertension greater than 180 and pain adequately controlled Anxiety Continue home lorazepam GIVE ZOLPIDEM FOR SLEEP 11/30 Diabetic diet Code: Full Disposition: Medical/surgical. (2) Hyperlipidemia: (3) Permanent atrial fibrillation: (4) Right heart failure with reduced right ventricular function: (5) SOB (shortness of breath): (6) Chronic heart failure with preserved ejection fraction: (7) CAD (coronary artery disease), [place] coronary artery: Plan Likely discharge tomorrow with outpatient cystoscopy. We will need to touch base with urology. Admission and Anticipated Discharge Date Admission Date: March 01, 2022 Subjective shepard removed this am, bloody, after one 30 cc void, had 90 cc residula by bladder scan, but Rn reports does not always report vodiing, voids little at a time Patient has dysuria requesting a sleep med- melatonin did not help last night denied dyspnea or CP Physical Exam Physical Exam: Cheerful, comfortable, abdomen distended but nontender, [employer] grossly intact Results & Data Results & Data ([facility]) Vital Signs (Past 12 Hours) Vital Signs Temp Pulse Resp BP Pulse Ox O2 Del Method 03/01/22 15:27 36.7 C 84 18 134/63 93 Room Air 03/01/22 07:04 36.7 C 76 16 135/66 93 Room Air Laboratory Results NO LABS PG Care Time/CCT Total # of Minutes Spent Total Time Spent with Patient: Total time spent is greater than 50% in coordination of care (as documented) at patient's floor/unit and/or counseling patient: Coding Level of Care Code 98851 Subseq Hosp Care Lvl 2 Diagnoses Hematuria R31.9 Hematuria type: unspecified type Hyperlipidemia E78.5 Hyperlipidemia type: unspecified Permanent atrial fibrillation I48.21 Right heart failure with reduced right ventricular function I50.810 SOB (shortness of breath) R06.02 Chronic heart failure with preserved ejection fraction I50.32 CAD (coronary artery disease), [place] coronary artery I25.10 [place] vs. transplanted heart: [place] heart Associated angina: without angina (1) Hematuria Hematuria type: unspecified type Qualified Code(s): R31.9 - Hematuria, unspecified (2) Hyperlipidemia Hyperlipidemia type: unspecified Qualified Code(s): E78.5 - Hyperlipidemia, unspecified (3) CAD (coronary artery disease), [place] coronary artery [place] vs. transplanted heart: [place] heart Associated angina: without angina Qualified Code(s): I25.10 - Atherosclerotic heart disease of [place] coronary artery without angina pectoris
[2022-03-01] MEDS: dilTIAZem HCL 120 MG CAPCR PO SCH (20:28)
[2022-03-01] MEDS: ROSUVASTATIN CALCIUM 20 MG TAB PO SCH (20:28)
[2022-03-01] MEDS ORDERED: ZOLPIDEM TARTRATE 5 MG TAB PO PRN (20:52)
[2022-03-01] MEDS: LIDOCAINE 5% 1 PATCH TD SCH (22:12)
[2022-03-02] MEDS: NSS + 20MEQ KCL 20 MEQ/1,000 ML BAG IV SCH (01:27)
--- NOTE | 2022-03-02 08:20 | Hospitalist Progress Note ---
Date of Service March 02, 2022 Assessment & Plan (1) Hematuria: Plan: 81-year-old male with a past medical history of TURP, CAD s/p CABG without PCI/stents, weakness, permanent A. fib on Xarelto, CKD, hypertension, hyperlipidemia who presents with recurrent hematuria and Bernstein obstruction with clot and worsening abdominal pain. He was treated with CBI with improvement in pain in the ER. Hematuria, urinary obstruction - CT-A/P: 1. No urinary calculi or hydronephrosis. Enlarged prostate. Bernstein balloon within the bladder which is collapsed. 2. No bowel obstruction. No bowel wall thickening.3. Suspected tiny gallstones. No convincing evidence for acute cholecystitis. Creatinine1.5 on admission with baseline approximately 1.42.0 Pain significantly improved following CBI, irrigating light pink urine- appreciate urology helpno procedure planned No leukocytosis Antibiotics stopped- hemoglobin maintained around 12.8 CKD Admitting creatinine at baseline, baseline approximately 1.42.0 Renally dose medications as appropriate BMP daily Anxiety Continue home lorazepam GIVE ZOLPIDEM FOR SLEEP 03/01 Diabetic diet Code: Full Disposition: Medical/surgical. (2) Hyperlipidemia: Plan: - Rosuvastatin 40mg (3) Permanent atrial fibrillation: Plan: Permanent A. fib Adequate rate control with diltiazem, metoprolol Initially tachycardic, rate irregular but controlled in 80s on reassessment Continue apixaban for prophylaxis, hold if worsens/hemodynamically significant bleeding [id number] >3, high risk (4) Right heart failure with reduced right ventricular function: Plan: History of CHF, history of CABG, no history of PCI/stents Appears euvolemic Comfortable laying flat, no orthopnea at visit, is on room air and saturating well Continue home Lasix dosing at this time (5) SOB (shortness of breath): (6) Chronic heart failure with preserved ejection fraction: Plan: History of CHF, history of CABG, no history of PCI/stents Appears euvolemic Comfortable laying flat, no orthopnea at visit, is on room air and saturating well Continue home Lasix dosing at this time (7) CAD (coronary artery disease), [place] coronary artery: Plan: Continue metoprolol, isosorbide Patient takes full dose aspirin at home. Discussed with patient, he reports that he was originally on a baby aspirin and switched as full dose aspirin was cheaper. He denies any history of strokes, cardiac stents, or other stents and has not been recommended to have a full dose aspirin per his doctor. Given hematuria with clot and bleeding pending potential cystoscopy will hold aspirin today, when resumed recommend resuming at 81 mg dose to minimize risk of bleeding. (8) Hypertension: Plan: Hypertension Continue metoprolol, isosorbide, diltiazem as noted. Blood pressure slightly increased in the setting of discomfort from Bernstein clot, improved on reassessment. May add hydralazine 5 mg IV every 6 hours if needed for hypertension greater than 180 and pain adequately controlled Plan Likely discharge tomorrow with outpatient cystoscopy. We will need to touch base with urology. Admission and Anticipated Discharge Date Admission Date: March 01, 2022 Subjective Patient seen this AM on rounds Results & Data Results & Data ([facility]) Vital Signs (Past 12 Hours) Vital Signs Temp Pulse Resp BP Pulse Ox O2 Del Method 03/02/22 07:30 36.6 C 70 18 152/68 H 95 Room Air 03/01/22 20:26 36.9 C 81 18 132/65 96 Room Air PG Care Time/CCT Total # of Minutes Spent Total Time Spent with Patient: Total time spent is greater than 50% in coordination of care (as documented) at patient's floor/unit and/or counseling patient: Coding Diagnoses Hematuria R31.9 Hematuria type: unspecified type Hyperlipidemia E78.5 Hyperlipidemia type: unspecified Permanent atrial fibrillation I48.21 Right heart failure with reduced right ventricular function I50.810 SOB (shortness of breath) R06.02 Chronic heart failure with preserved ejection fraction I50.32 CAD (coronary artery disease), [place] coronary artery I25.10 Associated angina: without angina [place] vs. transplanted heart: [place] heart Hypertension I10 Hypertension type: unspecified (1) Hematuria Hematuria type: unspecified type Qualified Code(s): R31.9 - Hematuria, unspecified (2) Hyperlipidemia Hyperlipidemia type: unspecified Qualified Code(s): E78.5 - Hyperlipidemia, unspecified (3) CAD (coronary artery disease), [place] coronary artery Associated angina: without angina [place] vs. transplanted heart: [place] heart Qualified Code(s): I25.10 - Atherosclerotic heart disease of [place] coronary artery without angina pectoris (4) Hypertension Hypertension type: unspecified Qualified Code(s): I10 - Essential (primary) hypertension
[2022-03-02] MEDS: APIXABAN 2.5 MG TAB PO SCH (08:53)
[2022-03-02] MEDS: METOPROLOL TARTRATE 50 MG TAB PO SCH (08:53)
[2022-03-02] MEDS: CYANOCOBALAMIN (B-12) 100 MCG TABLET PO SCH (08:53)
[2022-03-02] MEDS: FUROSEMIDE 40 MG TAB PO SCH (08:53)
[2022-03-02] MEDS: TAMSULOSIN HCL 0.4 MG CAP PO SCH (08:53)
[2022-03-02] MEDS: ISOSORBIDE MONO EXTENDED REL 30 MG TABCR PO SCH (08:53)
[2022-03-02] MEDS: PANTOprazole 40 MG TAB PO SCH (08:53)
[2022-03-02] MEDS: LIDOCAINE 5% 1 PATCH TD SCH (08:54)
--- NOTE | 2022-03-02 08:55 | Urology Progress Note ---
Date of Service March 02, 2022 Assessment & Plan (1) Hematuria: Plan 81-year-old male admitted due to persistent hematuria and multiple ER presentations for obstructed catheter. - Remains afebrile and hemodynamically stable. - Bernstein catheter removed yesterday and patient is voiding without issue. Urine is light pink in urinal, no clots. - OK for discharge from perspective. - Continue tamsulosin and recommend d/c with prn Pyridium. - Will arrange outpatient cystoscopy for further evaluation of hematuria. - Discussed with patient worrisome signs/symptoms, he verbalized understanding. - Urology will sign-off. Please contact us with any further questions, concerns, or changes in patient status. Admission and Anticipated Discharge Date Admission Date: March 01, 2022 Supervising Physician Co-Signing Physician Notes Discussed patient with EMMA. Agree with plan. Subjective Patient examined at bedside this AM. Awake, resting in bed on arrival. No acute distress. Eager to go home today. His Bernstein catheter was removed yesterday and he has been voiding without issue. Still notes some mild hematuria. Denies any significant passage of clot. Notes some mild discomfort at the tip of penis, but otherwise no pain. Feels he is emptying his bladder well. Bladder scanned yesterday for 96mL. Review of Systems Constitutional: as per Subjective / HPI Genitourinary: + as per Subjective / HPI Physical Exam Constitutional: no acute distress Respiratory: no respiratory distress and no labored breathing Neurologic: awake Psychiatric: A+Ox3, euthymic affect Genitourinary: Urine is light pink in urinal Results & Data ([facility]) Vital Signs (Past 12 Hours) Vital Signs Temp Pulse Resp BP Pulse Ox O2 Del Method 03/02/22 07:30 36.6 C 70 18 152/68 H 95 Room Air PG Care Time/CCT Total # of Minutes Spent Total Time Spent with Patient: Total time spent is greater than 50% in coordination of care (as documented) at patient's floor/unit and/or counseling patient: Coding Level of Care Code 41107 Subseq Hosp Care Lvl 2 Diagnoses Hematuria R31.9
--- NOTE | 2022-03-02 13:28 | Discharge Summary ---
Date of Service March 02, 2022 Admission HPI Per Admitting Provider Trav is an 81-year-old male with a past medical history of heart failure with preserved ejection fraction, A. fib on apixaban, CAD, hypertension, pulmonary hypertension who was had recurrent Shepard obstruction. Patient presents to the ER with clots around shepard, abdominal pressure. Day prior to yesterday had hematuria. Seen in ER, had shepard exhange and was scheduled w Urology followup sunday yesterday dramatic increase in pain, only small amounts of blood comign out around shepard. 8-10/10 intense pressure like pain. 0/10 pain, slight tingling since pain control and folehy placed in ER Discussed with Uro. CBI placed. CT-A/P pending. Pain improved with 'elephant catheter' an dirrigation Thinks it started after a shepard removed last month during a CHF admission Took all meds except lasix this morning Laying on his back comfortable No shortness of breath No ches tpain No chest pressure Hx of CHF last month, breathing comfortably since. Denies leg swelling. Medical History: Reviewed Medications: Reviewed. NKDA Surgical History: Reviewed Allergies: Reviewed Social History: No tobacco or etoh. Code Status: Emergency contact would be son [place]. Full Code. Admission Exam Per Admitting Provider Physical Exam: General: A&Ox3. NAD. Cooperative. HEENT: Atraumatic, normocephalic. Vision and hearing grossly intact Pulm: Laying flat comfortably CTAB A&P. -wheezes, -rales, -rhonchi. Symmetrical chest rise. No increased work of breathing. No respiratory distress. Cardiac: Irregularly irregular. Radial pulses intact and symmetrical. Abdominal: Nontender, nondistended, soft. BS present. : CBI catheter in place draining light pink urine. Scant bleeding/clot present at the glans around Shepard Extremities: Warm, dry. Trace ankle edema, no gross pitting edema Principal Diagnosis Hematuria Discharge Exam Constitutional WD/WN, vitals as above ENMT external ear and nose normal, oropharynx normal Neck trachea midline, no thyromegaly Respiratory normal respiratory effort, lungs clear to auscultation Cardiovascular Rate/Rhythm: + irregularly irregular Extremities: no calf tenderness and no edema Gastrointestinal (Abdomen) normal bowel sounds, soft, nontender, no hepatosplenomegaly Psychiatric A+Ox3, euthymic affect Discharge Data Allergies Allergy/AdvReac Type Severity Reaction Status Date / Time No Known Allergies Allergy Verified 02/20/22 12:24 Consultations 02/27/22 10:40 ED Decision to Admit Stat 02/27/22 14:48 Consult Urology Routine Ordered Studies 02/27/22 10:42 CT Abd and Pelvis [CT abd pelvis IV con only] Stat Hospital Course (1) Hematuria: - CT-A/P: 1. No urinary calculi or hydronephrosis. Enlarged prostate. Shepard balloon within the bladder which is collapsed. 2. No bowel obstruction. No bowel wall thickening.3. Suspected tiny gallstones. No convincing evidence for acute cholecystitis. - Pain significantly improved following CBI, irrigating light pink urine - Urology consulted and plan for out patient cystoscopy in 3 weeks and to use as needed Pyridium Shepard catheter removed yesterday and patient is voiding on his own without any difficulty (2) Hyperlipidemia: - Continue home medications and to follow up with [facility] and [facility] as scheduled (3) Permanent atrial fibrillation: Adequate rate control with diltiazem, metoprolol Rate irregular but controlled in 80s Continue apixaban [id number] >3, high risk (4) Right heart failure with reduced right ventricular function: - Continue home Lasix, Metoprolol and Isorbide - Recommend ASA 81 mg daily - Maintained good O2 saturation on RA (5) Chronic heart failure with preserved ejection fraction: - See above (6) CAD (coronary artery disease), [place] coronary artery: - See above (7) Hypertension: - Continue home medications Total Time Total Time Spent Total Time Spent (In Minutes): 45 Discharge Plan Discharge Items Patient Disposition: Home - Self-Care Reason For Visit: HEMATURIA, LUTS Discharge Diagnosis: hematuria Condition on Discharge: Good Activity: Resume your previous activity Lifting: Gradually increase as tolerated Driving/Machine Use: Resume 1 day after discharge Weightbearing: Full weightbearing Non-emergency contact: Primary Care Provider Call non-emergency contact if: your symptoms worsen and your temperature is above 101.5 Follow-up/Referrals: Shannen Cardenas MD [Primary Care Provider] - 03/08/22 8:30 am Diet: Heart Healthy Addtl Attending Provider Instructions: You will need to follow up with your Primary Care Physician in the next 2 weeks You will need to follow up also with the Urologist to schedule the cystoscopy Encourage adequate intake of water and hydration Use Pyridium as needed per urology instructions (one pill up to 3 times per day for a total of 3 days) Recommend to decrease dose of daily Aspirin to 81 mg - Can discuss further with it manager and primary care physician Pending Studies at Discharge: No Stand-Alone Forms: My [facility] Medications and DC Order Prescriptions: New phenazopyridine 200 mg Tablet 200 mg PO TID MDD 3 PRN (Reason: pain) Qty: 9 0RF Continued Eliquis 5 mg tablet 2.5 mg PO BID isosorbide mononitrate 30 mg tablet extended release 24 hr 30 mg PO QAM Qty: 30 5RF cyanocobalamin (vitamin B-12) 100 mcg tablet 100 mcg PO QAM rosuvastatin 40 mg tablet 40 mg PO PM metoprolol tartrate 50 mg tablet 50 mg PO BID Qty: 180 3RF nitroglycerin 0.4 mg tablet, sublingual 0.4 mg sublingual Q5M PRN (Reason: chest pain) Qty: 1 0RF Rx Instructions: max 3 doses in 15 minutes acetaminophen [Tylenol] 325 mg Tablet 650 mg PO DIRECTED PRN (Reason: PAIN/FEVER) diltiazem HCl 120 mg capsule,extended release 24hr 120 mg PO PM aspirin 325 mg Tablet,Delayed Release (Dr/Ec) 325 mg PO DAILY omeprazole 20 mg capsule,delayed release(DR/EC) 20 mg PO QAM No Action tamsulosin 0.4 mg capsule 0.4 mg PO DAILY Qty: 90 3RF furosemide 40 mg tablet 40 mg PO BID Qty: 180 3RF Discharge Orders: Discharge Order (Routine); Ordered 03/02/22 Ordered By: Neha Lopez Admission Data Admit Date/Time: 03/01/22 17:14 Attending Provider: Allen Shaffer Admit Provider: Keith Iglesias Primary Care Provider: Shannen Cardenas Other Providers: Keith Iglesias ; Tomasz Mueller ; Rory Canales ; Pee Clifford Other Interventions: Discharge Summary Assessment (RN) Last Done: 03/02/22 11:42 Supervising Physician Co-Signing Physician Notes Patient seen and examined at bedside. I obtained a physical exam and summary of hospital stay during face to face encounter. I discussed plan of care with MADISON Lopez and patient. Patient was seen for hematuria and will be followed with urology for an outpatient cystocopy. Urine is clear at discharge. Coding Level of Care Code Established Pt D/C DAY MANAGEMENT >30 MINS Patient Type Established Medical Decision Making Moderate Complexity Diagnoses Hematuria R31.9 Hematuria type: unspecified type Hyperlipidemia E78.5 Hyperlipidemia type: unspecified Permanent atrial fibrillation I48.21 Right heart failure with reduced right ventricular function I50.810 Chronic heart failure with preserved ejection fraction I50.32 CAD (coronary artery disease), [place] coronary artery I25.10 Associated angina: without angina [place] vs. transplanted heart: [place] heart Hypertension I10 Hypertension type: unspecified Time Spent (min) 45
[2022-03-02] MEDS ORDERED: FUROSEMIDE 20 MG TAB PO SCH (17:00)
== END 2022-03-02 14:45 | disposition home or self-care (01) | DRG 699 ==
LOC: ED 09:02 → EDINP 09:02 → SUATTDRO 11:31 → 3N 14:49 → SUATTDRO 03-01 17:14